=== PATIENT | female | born 1935 | race Caucasian/White ===

== ENCOUNTER 2018-07-09 11:59 | Inpatient (IN) | payer OTHER ==
--- NOTE | 2018-07-09 13:36 | R.PREADM ---
SCREENING DATE AND TIME 07/09/2018 12:05 (FLIGHT SERVICE AGENT) ANTICIPATED REHAB ADMISSION DATE 07/11/2018 REFERRING FACILITY [facility] REFERRAL DATE AND TIME 07/09/2018 12:07 (FLIGHT SERVICE AGENT) ACUTE ADMIT DATE 06/29/2018 Previous Rehabilitation(s): No. REFERRING PHYSICIAN Reynaldo Handley REHAB FACILITY [facility] CLINICAL LIAISON Rebeca Nolasco PHYSICIAN REVIEWER Dr. Rambo De La Rosa M.D. MR# [id number] [id number] NAME LINH SANDS ADDRESS [address] [place] [address] [place] [address] DATE OF 1935 AGE 83 SSN# [id number] GENDER female MARITAL STATUS RACE white ADMIT FROM 02 - [facility] PRE-HOSPITAL LIVING SETTING 01 - Home (private home/apt. board/care, assisted living, residential, transitional living) HOME TYPE AND DETAILS Type of home: single family house # of levels in the residence: 1 # of steps within the residence: 0 # of steps to enter the residence: 5 PRE-HOSPITAL LIVING WITH Alone FAMILY SUPPORT Yes PRIMARY FAMILY CONTACT NAME Fiona Ramirez PRIMARY FAMILY CONTACT PHONE PRIMARY FAMILY CONTACT RELATIONSHIP Daughter PHONE PRIMARY FAMILY CONTACT ON ADM.? no IS PRIMARY FAMILY CONTACT AUTH. REP.? no 1ST EMERGENCY CONTACT Fiona Ramirez 1ST CONTACT PHONE 1ST CONTACT RELATIONSHIP Daughter PHONE 1ST CONTACT ON ADM. no IS 1ST CONTACT AUTH. REP.? no PHONE 2ND CONTACT ON ADM.? no PATIENT EMPLOYMENT STATUS Retired (for age) PATIENT EMPLOYER No Employer PAYOR INFORMATION: 1ST PAYOR NAME MEDICARE 1ST PAYOR PHONE [phone] 1ST PAYOR INJURY/ILLNESS DUE TO ACCIDENT? No ANOTHER [employer] RESPONSIBLE? No PRIMARY REHAB/ACUTE DIAGNOSIS: Left Hip Fracture ONSET DATE 06/29/2018 REHAB IMPAIRMENT CATEGORY (RAFAEL): 07 Fracture of LE (FracLE) MEETS 60% rule AFFECTED EXTREMITIES: LLE PRIMARY DIAGNOSIS-RELATED SURGERIES: IM Nailing,Left femur - performed by Ezequiel Harrington on 06/30/2018 COMORBID REHAB/ACUTE DIAGNOSES: - N/A Chronic Atrial Fibrillation Hypertension Hypothyroidism Restless Leg Syndrome ACUTE KIDNEY INJURY Anemia INTERVENTIONS: - Hypertension Fluid management Medications VS RISK FOR COMPLICATIONS: - Hypertension CVA Hypotension [place] TIA SUMMARY OF ACUTE HOSPITALIZATION: Pt. is a 83 yo Right-handed white female. On 06/29/2018 she was admitted to [facility] with diagnosis Left Hip Fracture. Her impairment category is Orthopaedic Disorders 08 - Unilateral Hip Fracture (08.11). Pre-morbidly, Pt. was independent/mod-I in Self-Care, Sphincter Control, Transfers Control, Communica tion, Social Cognition, and Locomotion; and she had good Sphincter Control. Currently, she has deficits of Self-Care, Transfers Control, Endurance, Balance, Safety Awareness, an d Locomotion. Pt. is now referred to [facility] for acute in-patient rehabilitation in order to maximize patient's functional independence in activities of daily living, strength, ROM, and mobi lity. Patient has realistic goal of being discharged at assistance level 6-Radha to reside at Home with Fam wilmer/Relatives. PAST MEDICAL HISTORY ACUTE KIDNEY INJURY Anemia Chronic Atrial Fibrillation Hypertension Hypothyroidism Restless Leg Syndrome PAST SURGICAL HISTORY: PACEMAKER PLACEMENT MEDICATION ALLERGIES: Codeine ENVIRONMENTAL ALLERGIES: None Known - Substance Allergies None Known - Other Allergies None Known CODE STATUS: DNR/DNI WEIGHT/HEIGHT/BMI: WEIGHT 225 lbs HEIGHT 5' 9" BMI 33.2 DIET: - Diet Type Regular - Diet - Solid Texture Regular - Diet - Liquid Texture Regular - Tube Feed N/A SKIN DIAGRAM: Incision on Left upper leg; extent - small; stage - NS(Not Stageable). Treatment - Per Physician's Or ders. REVIEW OF SYSTEMS: - Gen Alert and awake Lying in bed No apparent distress Oriented to: person, time, and place - Vital Signs Temperature: 98 F SBP/DBP: 124/55 Pulse: 69 Resp: 18 Vital signs stable, afebrile - CVS RRR VITAL SIGNS Temperature: 98 F SBP/DBP: 124/55 Pulse: 69 Resp: 18 Vital signs stable, afebrile CURRENT SPHINCTER CONTROL: Pre-hospital bladder status: continent # of bladder accidents in the last 7 days prior to screenin Pre-hospital bowel status: continent # of bowel accidents in the last 7 days prior to screenin Last Bowel Movement Date: DETAILED CURRENT FUNCTIONAL STATUS: - Bladder accident frequency: Ind - No accidents in the past 7 days - Bowel accident frequency: Ind - No accidents in the past 7 days - Walking score based on distance walked: 3(>=150ft) FUNCTIONAL STATUS: - Self-Care A. Eating Ind sup B. Grooming Ind sup C. Bathing Ind modA D. Dressing - Upper Ind Maria Isabel E. Dressing - Lower Ind maxA F. Toileting Ind modA - Sphincter Control G: Bladder control Ind Ind H: Bowel control Ind Ind - Transfers Control I. Bed/Chair/Wheelchair Ind Maria Isabel J. Toilet Ind Maria Isabel K. Tub/Shower Ind modA - Locomotion L. Walk/Wheelchair (B) Ind Maria Isabel M. Stairs Ind ADNO - Communication N. Comprehension (B) Ind Radha O. Expression (B) Ind Radha - Social Cognition P. Social Interaction Ind Radha Q. Problem Solving Ind Radha R. Memory Ind Radha - Endurance Fair - Balance Fair - Safety Awareness Fair CURRENT FUNC. DEFICITS: Self-Care, Transfers Control, Endurance, Balance, Safety Awareness, and Locomotion THERAPY NOTES FROM ACUTE CARE: Attached. SPECIAL NEEDS: - Safety Concerns Skin breakdown precautions needed due to skin breakdown risk PRECAUTIONS: - Posterior Hip Precaution No adduction across midline No external rotation No hip flexion >90 degrees No internal rotation No wheel chair propulsion - Weight Bearing Precaution WBAT left LE PATIENT NEEDS ACTIVE AND ONGOING THERAPEUTIC INTERVENTION OF MULTIPLE THERAPY DISCIPLINES, INCLUDING: - Occupational Therapy Evaluate and Treat. - Physical Therapy Evaluate and Treat. PATIENT NEEDS CLOSE MEDICAL SUPERVISION BY A REHABILITATION PHYSICIAN FOR: Coordination of Treatment Team Medical and Co-Morbidity Management Wound Care Pain Management DVT Management Bowel and Bladder Management Sleep Problems PATIENT REQUIRES 24X7 REHAB NURSING FOR MEDICAL AND FUNCTIONAL MGT. OF THE FOLLOWING DEFICITS: Disease Management Medication Management Patient/Family Education Providing Safe Environment Skin Integrity Pain Management Transfers PATIENT REQUIRES INTENSIVE, COORDINATED INTERDISCIPLINARY APPROACH TO REHAB: Arranging Home Equipment/Services Discharge Planning Family Intervention/Training Office Workforce Planner/Case Management PATIENT REHAB POTENTIAL: Expected level of measurable improvement will be of a practical value to patient's functional capacit y or adaptations to impairments Has a viable Discharge Plan Medically appropriate; condition is sufficiently stable to participate in intensive rehab program Patient is able and expected to receive 3 hours of individualized therapy daily on at least 5 of ever y 7 days Patient's prognosis for significant practical improvement within a reasonable period of time appears Good DISCHARGE PLAN: - Estimated Length of Stay (days) 14. - Consensus on plan Discharge plan has been discussed with primary caregiver. Patient/Family is in agreement with the irasema n. Primary caregiver is in agreement with the plan. - Patient/Family Goals Return home with assistance. - Planned Living Setting Upon Discharge Home, to live alone. RECOMMENDED CARE LEVEL: IRF RECOMMENDATION DETAILS: Recommended Admission to Comprehensive Rehabilitation Program to Increase Functional [place] SCREENER'S COMPLETENESS CONFIRMATION: - Screening Confirmation The patient data collection on this preadmission screening form is finished PHYSICIANS REVIEW AND ADMISSION DETERMINATION Admit - Based on my review of the Pre-Admission Screening results, in my medical judgment and experie nce, I concur with the findings and recommend admission to [facility], as this patient requires an IRF level of care. SIGNATURE PANEL: Clinical Liaison - [electronically] signed by Yandy Pina on 07/09/2018 at 13:30 (FLIGHT SERVICE AGENT) Clinical Liaison - [electronically] signed by Rebeca Nolasco on 07/09/2018 at 13:33 (FLIGHT SERVICE AGENT) Physician Reviewer - [electronically] signed by Dr. Rambo De La Rosa M.D. on 07/09/2018 at 13:35 (FLIGHT SERVICE AGENT )
--- OUTSIDE RECORDS SUMMARY | 2018-07-09 17:55 | XMS REPORT | Clinical Summary ---
:1935 Author Organization [facility] Address [address] [place] [address] Care Team Providers Name Role Phone Michael Albright MD Primary Care Provider Allergies Active Allergy Reactions Severity Noted Date Comments Codeine Rash Medium 06/29/2018 Medications Medication Sig Dispensed Refills Start Date End Date Status lisinopril-hydrochl Take 1 tablet 0 Active orothiazide by mouth (PRINZIDE,ZESTORETI daily. C) 20-25 mg per tablet pramipexole Take 0.5 mg by 0 Active (MIRAPEX) 0.5 MG mouth nightly. tablet rivaroxaban Take 15 mg by 0 Active (XARELTO) 15 mg mouth every tablet morning. venlafaxine XR Take 150 mg by 0 Active (EFFEXOR-XR) 150 MG mouth every 24 hr capsule morning. levothyroxine Take 150 mcg 0 Active (SYNTHROID, by mouth every LEVOXYL) 150 mcg morning. tablet furosemide (LASIX) Take 40 mg by 0 Active 40 mg tablet mouth daily as needed. acetaminophen Take 2 tablets 0 07/09/2018 08/08/2018 Active (TYLENOL) 325 MG (650 mg total) tablet by mouth every 4 (four) hours as needed for mild pain for up to 30 days. amLODIPine Take 1 tablet 30 tablet 0 07/09/2018 08/08/2018 Active (NORVASC) 5 mg (5 mg total) tablet by mouth daily for 30 days. sennosides-docusate Take 1 tablet 30 tablet 0 07/09/2018 08/08/2018 Active sodium (SENOKOT-S) by mouth 8.6-50 mg per nightly for 30 tabletIndications: days. Closed fracture of left hip, initial encounter ([facility]) traMADol (ULTRAM) Take 1 tablet 0 07/09/2018 07/23/2018 Active 50 mg (50 mg total) tabletIndications: by mouth every Closed fracture of 6 (six) hours left hip, initial as needed for encounter (HCC) moderate pain for up to 14 days. pantoprazole Take 1 tablet 30 tablet 0 07/10/2018 08/09/2018 Active (PROTONIX) 40 MG EC (40 mg total) tablet by mouth daily for 30 days. gabapentin Take 1,200 mg 0 07/09/2018 Discontinued (NEURONTIN) 600 mg by mouth 2 tablet (two) times a day. ALPRAZolam (XANAX) Take 1 mg by 0 07/09/2018 Discontinued 1 MG tablet mouth nightly. potassium 99 mg Take 1 tablet 0 07/09/2018 Discontinued tablet by mouth daily as needed (with Lasix). OVER THE COUNTER Active Problems Problem Noted Date Closed fracture of left hip 06/29/2018 Encounters Date Type Specialty Care Team Description 06/30/2018 Anesthesia Event Orthopedic Surgery Jelani Larsen MD 06/30/2018 Surgery Orthopedic Surgery Jason Harrington INTRAMEDULLARY MD Isiah RODDING, FEMUR 06/29/2018 - Hospital Encounter Neurosurgery IrinaPetit, Closed fracture of left hip, initial encounter ([facility]) (Primary Dx); 07/09/2018 MD Jun Gilmore, initial encounter Ciera Castaneda-Bharti Hay MD 06/29/2018 Intake Access N/A after 07/08/2017 Social History Tobacco Use Types Packs/Day Years Used Date Never Smoker Smokeless Tobacco: Never Used Alcohol Use Drinks/Week oz/Week Comments No Alcohol Habits Answer Date Recorded How often do you have a drink containing alcohol? Never 06/30/2018 How many drinks containing alcohol do you have on a typical Not asked day when you are drinking? How often do you have six or more drinks on one occasion? Not asked Sex Assigned at Date Recorded Not on file Job Start Date Occupation Industry Not on file Not on file Not on file Travel History Travel Start Travel End No recent travel history available. Last Filed Vital Signs Vital Sign Reading Time Taken Blood Pressure 184/86 07/09/2018 3:53 PM [employer] Pulse 70 07/09/2018 3:53 PM [employer] Temperature 36.4 C (97.6 F) 07/09/2018 11:46 AM [employer] Respiratory Rate 17 07/09/2018 3:50 PM [employer] Oxygen Saturation 95% 07/09/2018 3:45 PM [employer] Inhaled Oxygen Concentration - - Weight 115 kg (252 lb 10.4 oz) 07/02/2018 10:00 PM [employer] Height 175.3 cm (5' 9") 06/29/2018 11:15 PM [employer] Body Mass Index 37.31 07/02/2018 10:00 PM [employer] Plan of Treatment Health Maintenance Due Date Last Done Comments SHINGLES VACCINES (#1) 1985 65+ PNEUMOCOCCAL VACCINE (1 of 2 - PCV13) 02/25/2000 PNEUMOCOCCAL POLYSACCHARIDE VACCINE AGE 65 AND OVER 02/25/2000 INFLUENZA VACCINE 12/06/2017 Implants Implanted Type Area Mold Stamper Device Shelf Model / Identifier Expiration Serial / Date Lot Kit Scr Intrlkng 90mm Lag 85mm Comp Intertan - [id number] Hip Joint Left: EDIL CABRALES [id number] / Implanted: Qty: 1 on 06/30/2018 by Jason Harrington MD Implants Hip NEPHEW / ORTHOPEDICS Trigen Low Profile Screw 5.0mm X 40mm - [id number] IPM IMPLANT Left: [employer] [id number] / Implanted: Qty: 1 on 06/30/2018 by Jason Harrington MD DEVICES Hip ORTHOPAEDICS / Intertan 1.5 [id number] 125d Lt - [id number] IPM IMPLANT Left: [employer] 08/19/2024 [id number] / Implanted: Qty: 1 on 06/30/2018 by Jason Harrington MD DEVICES Hip ORTHOPAEDICS / [id number] Procedures Procedure Name Priority Date/Time Associated Comments Diagnosis ARTERIAL BLOOD GAS Timed 07/09/2018 6:46 Results for this AM [employer] procedure are in the results section. ARTERIAL BLOOD GAS Routine 07/08/2018 9:09 Results for this PM [employer] procedure are in the results section. ESTIMATED GFR Routine 07/08/2018 3:30 Results for this AM [employer] procedure are in the results section. CBC HEMOGRAM Routine 07/08/2018 3:30 Results for this AM [employer]OR procedure are in the results section. PHOSPHORUS LEVEL Routine 07/08/2018 3:30 Results for this AM [employer]PECTOR procedure are in the results section. MAGNESIUM LEVEL Routine 07/08/2018 3:30 Results for this AM [employer] procedure are in the results section. BASIC METABOLIC PANEL Routine 07/08/2018 3:30 Results for this AM [employer]OR procedure are in the results section. ARTERIAL BLOOD GAS STAT 07/07/2018 5:32 Results for this AM [employer]OR procedure are in the results section. B NATRIURETIC PEPTIDE Routine 07/07/2018 5:30 Results for this AM [employer]OR procedure are in the results section. HC COMPLETE BLD COUNT Routine 07/07/2018 5:30 Results for this W/AUTO DIFF AM [employer] procedure are in the results section. ESTIMATED GFR Routine 07/07/2018 4:00 Results for this AM [employer]OR procedure are in the results section. MAGNESIUM LEVEL Routine 07/07/2018 4:00 Results for this AM [employer]OR procedure are in the results section. BASIC METABOLIC PANEL Routine 07/07/2018 4:00 Results for this AM [employer]PECTOR procedure are in the results section. ARTERIAL BLOOD GAS STAT 07/06/2018 10:56 Results for this PM [employer] procedure are in the results section. ARTERIAL BLOOD GAS Timed 07/06/2018 10:02 Results for this PM [employer] procedure are in the results section. ESTIMATED GFR Routine 07/06/2018 4:30 Results for this AM [employer]OR procedure are in the results section. B NATRIURETIC PEPTIDE Routine 07/06/2018 4:30 Results for this AM [employer]OR procedure are in the results section. HC COMPLETE BLD COUNT Routine 07/06/2018 4:30 Results for this W/AUTO DIFF AM [employer] procedure are in the results section. PHOSPHORUS LEVEL Routine 07/06/2018 4:30 Results for this AM [employer]OR procedure are in the results section. MAGNESIUM LEVEL Routine 07/06/2018 4:30 Results for this AM [employer] procedure are in the results section. BASIC METABOLIC PANEL Routine 07/06/2018 4:30 Results for this AM [employer]OR procedure are in the results section. B NATRIURETIC PEPTIDE Routine 07/05/2018 6:21 Results for this AM [employer]OR procedure are in the results section. HC COMPLETE BLD COUNT Routine 07/05/2018 6:21 Results for this W/AUTO DIFF AM [employer] procedure are in the results section. ESTIMATED GFR Routine 07/05/2018 4:00 Results for this AM [employer]PECTOR procedure are in the results section. BASIC METABOLIC PANEL Routine 07/05/2018 4:00 Results for this AM [employer]OR procedure are in the results section. VENOUS BLOOD GAS Routine 07/04/2018 3:00 Results for this PM [employer] procedure are in the results section. XR CHEST 1 VW PORTABLE Routine 07/04/2018 9:57 Results for this AM [employer]OR procedure are in the results section. ESTIMATED GFR Routine 07/04/2018 5:22 Results for this AM [employer]OR procedure are in the results section. MAGNESIUM LEVEL Routine 07/04/2018 5:22 Results for this AM [employer]OR procedure are in the results section. BASIC METABOLIC PANEL Routine 07/04/2018 5:22 Results for this AM [employer] procedure are in the results section. XR CHEST 1 VW PORTABLE STAT 07/03/2018 7:02 Results for this AM [employer] procedure are in the results section. ARTERIAL BLOOD GAS STAT 07/03/2018 6:15 Results for this AM [employer] procedure are in the results section. MANUAL DIFFERENTIAL Routine 07/03/2018 4:53 Results for this AM [employer] procedure are in the results section. ESTIMATED GFR Routine 07/03/2018 4:53 Results for this AM [employer]OR procedure are in the results section. PHOSPHORUS LEVEL Routine 07/03/2018 4:53 Results for this AM [employer]OR procedure are in the results section. MAGNESIUM LEVEL Routine 07/03/2018 4:53 Results for this AM [employer] procedure are in the results section. BASIC METABOLIC PANEL Routine 07/03/2018 4:53 Results for this AM [employer] procedure are in the results section. CBC WITH PLATELET AND Routine 07/03/2018 4:53 Results for this DIFFERENTIAL AM [employer]OR procedure are in the results section. ARTERIAL BLOOD GAS Routine 07/02/2018 5:25 Results for this PM [employer] procedure are in the results section. POC GLUCOSE Routine 07/02/2018 5:13 Results for this PM [employer] procedure are in the results section. US RENAL STAT 07/02/2018 2:00 Closed fracture of Results for this PM [employer] left hip, initial procedure are in encounter (HCC) the results section. ESTIMATED GFR Routine 07/02/2018 12:45 Results for this PM [employer] procedure are in the results section. URIC ACID LEVEL Routine 07/02/2018 12:45 Results for this PM [employer] procedure are in the results section. CREATINE KINASE, TOTAL Routine 07/02/2018 12:45 Results for this (CPK) PM [employer] procedure are in the results section. BASIC METABOLIC PANEL Routine 07/02/2018 12:45 Results for this PM [employer] procedure are in the results section. URINALYSIS, AUTOMATED Routine 07/02/2018 12:45 Results for this WITH MICROSCOPY PM [employer]OR procedure are in the results section. PROTEIN, URINE, RANDOM Routine 07/02/2018 12:45 Results for this PM [employer] procedure are in the results section. CREATININE LEVEL, Routine 07/02/2018 12:45 Results for this URINE, RANDOM PM [employer] procedure are in the results section. SODIUM LEVEL, URINE, Routine 07/02/2018 12:45 Results for this RANDOM PM [employer] procedure are in the results section. URINE EOSINOPHILS Routine 07/02/2018 12:45 Results for this PM [employer] procedure are in the results section. B NATRIURETIC PEPTIDE Routine 07/02/2018 5:00 Results for this AM [employer] procedure are in the results section. CBC WITH PLATELET AND Routine 07/02/2018 5:00 Results for this DIFFERENTIAL AM [employer] procedure are in the results section. ESTIMATED GFR Routine 07/02/2018 4:00 Results for this AM [employer]OR procedure are in the results section. MAGNESIUM LEVEL Routine 07/02/2018 4:00 Results for this AM [employer] procedure are in the results section. BASIC METABOLIC PANEL Routine 07/02/2018 4:00 Results for this AM [employer]OR procedure are in the results section. LACTIC ACID LEVEL, Timed 07/01/2018 1:30 Results for this SEPSIS - NOW AND PM [employer]OR procedure are in REPEAT 2X EVERY 3 the results HOURS section. LACTIC ACID LEVEL, Timed 07/01/2018 10:30 Results for this SEPSIS - NOW AND AM [employer]OR procedure are in REPEAT 2X EVERY 3 the results HOURS section. ECG 12-LEAD STAT 07/01/2018 8:01 Results for this AM [employer] procedure are in the results section. LACTIC ACID LEVEL, Timed 07/01/2018 7:34 Results for this SEPSIS - NOW AND AM [employer]PECTOR procedure are in REPEAT 2X EVERY 3 the results HOURS section. XR CHEST 1 VW PORTABLE STAT 07/01/2018 7:21 Results for this AM [employer]OR procedure are in the results section. ARTERIAL BLOOD GAS STAT 07/01/2018 5:30 Results for this AM [employer] procedure are in the results section. B NATRIURETIC PEPTIDE STAT 07/01/2018 5:00 Results for this AM [employer] procedure are in the results section. HC COMPLETE BLD COUNT STAT 07/01/2018 5:00 Results for this W/AUTO DIFF AM [employer] procedure are in the results section. POC GLUCOSE Routine 07/01/2018 4:41 Results for this AM [employer] procedure are in the results section. ESTIMATED GFR STAT 07/01/2018 4:41 Results for this AM [employer]OR procedure are in the results section. CREATINE KINASE, TOTAL STAT 07/01/2018 4:41 Results for this (CPK) AM [employer] procedure are in the results section. IONIZED CALCIUM STAT 07/01/2018 4:41 Results for this AM [employer]OR procedure are in the results section. LACTIC ACID LEVEL STAT 07/01/2018 4:41 Results for this AM [employer]PECTOR procedure are in the results section. TROPONIN STAT 07/01/2018 4:41 Results for this AM [employer]PECTOR procedure are in the results section. MAGNESIUM LEVEL STAT 07/01/2018 4:41 Results for this AM [employer]OR procedure are in the results section. PHOSPHORUS LEVEL STAT 07/01/2018 4:41 Results for this AM [employer]PECTOR procedure are in the results section. COMPREHENSIVE STAT 07/01/2018 4:41 Results for this METABOLIC PANEL AM [employer]PECTOR procedure are in the results section. XR PELVIS 1 OR 2 VW Routine 06/30/2018 12:36 Results for this PM [employer] procedure are in the results section. XR FEMUR 2 VW LEFT Routine 06/30/2018 12:36 Results for this PM [employer]OR procedure are in the results section. OR FL > 1 HOUR Routine 06/30/2018 11:14 Results for this AM [employer]OR procedure are in the results section. MA AN ELECTIVE Routine 06/30/2018 9:41 ENDOTRACHEAL AIRWAY AM [employer] Procedure Note - Jelani Larsen MD - 06/30/2018 9:41 AM [employer]PECTOR Airway Date/Time: 06/30/2018 8:58 AM Performed by: Linh Petit CRNA Authorized by: Jelani Larsen MD Location: OR Urgency: Elective Difficult Airway: No Anesthesiologist: Jelani Larsen MD Resident/PUBLIC HEALTH/AA: Linh Petit CRNA Performed by: resident/PUBLIC HEALTH/AA Preoxygenated with 100% O2: Yes C-spine Precautions Maintained Throughout: Yes Mask Ventilation: Easy mask Final Airway Type: Endotracheal airway Final Endotracheal Airway: ETT Cuffed: No Technique Used: Video laryngoscopy Devices/Methods Used in Placement: Intubating stylet Insertion Site: Oral Laryngoscope Blade/Videolaryngoscope Blade Size: 3 ETT Size (mm): 7.0 Measured from: Lips ETT to Lips (cm): 22 Placement Verified by: CO2 detection and direct visualization Laryngoscopic view: Grade I - full view of glottis Rapid Sequence Induction (RSI): No Modified RSI: No Number of Attempts at Approach: 1 INTRAMEDULLARY RODDING, 06/30/2018 8:00 AM [employer]OWER [employer]ER INSPECTOR Closed left subtrochanteric FEMUR femur fracture (HCC) Special Needs large c arm; meredith and nephew IMN; fracture table; request first available time ECG PRE/POST OP STAT 06/30/2018 7:47 AM POWER [employer]FORMER INSPECTOR HC COMPLETE BLD COUNT W/AUTO STAT 06/30/2018 5:45 AM [employer]OWER [employer]ER INSPECTOR Results for this DIFF procedure are in the results section. PARTIAL THROMBOPLASTIN TIME STAT 06/30/2018 5:45 AM POWER [employer]ER INSPECTOR Results for this (PTT) procedure are in the results section. PROTHROMBIN TIME WITH INR STAT 06/30/2018 5:45 AM POWER [employer]ER INSPECTOR PTH-RELATED PEPTIDE Routine 06/30/2018 12:45 AM POWER TR[employer]FORMER INSPECTOR VITAMIN D 25 HYDROXY LEVEL STAT 06/29/2018 10:06 PM POWER [employer] CT PELVIS WO CONTRAST STAT 06/29/2018 9:26 PM POWER [employer]ER INSPECTOR XR FEMUR 2 VW LEFT STAT 06/29/2018 8:24 PM POWER [employer]ER INSPECTOR ESTIMATED GFR STAT 06/29/2018 8:19 PM [employer]OWER [employer]ER INSPECTOR TYPE AND SCREEN Routine 06/29/2018 8:19 PM [employer] INSPECTOR COMPREHENSIVE METABOLIC STAT 06/29/2018 8:19 PM [employer]PECTOR Results for this PANEL procedure are in the results section. PARTIAL THROMBOPLASTIN TIME STAT 06/29/2018 8:19 PM POWER [employer]PECTOR Results for this (PTT) procedure are in the results section. PROTHROMBIN TIME WITH INR STAT 06/29/2018 8:19 PM POWER [employer]ER INSPECTOR HC COMPLETE BLD COUNT W/AUTO STAT 06/29/2018 8:19 PM [employer]PECTOR Results for this DIFF procedure are in the results section. XR CHEST 1 VW PORTABLE STAT 06/29/2018 8:19 PM POWER [employer]ER INSPECTOR XR HIPS BILATERAL AP LATERAL STAT 06/29/2018 8:18 PM [employer]PECTOR Results for this W AP PELVIS procedure are in the results section. XR PELVIS 1 OR 2 VW STAT 06/29/2018 8:18 PM POWER [employer]ER INSPECTOR after 07/08/2017 Results Arterial blood gas (07/09/2018 6:46 AM POWER TRANSFORMER INSPECTOR)Only the most recent of8 resultswithin the time period is included. pH, arterial 7.48 (H) 7.35 - 7.45 [facility] pCO2, arterial 39 35 - 45 mmHg [facility] pO2, arterial 108 (H) 80 - 90 mmHg [facility] Bicarbonate, arterial 28.4 (H) 21.0 - 28.0 mmol/L [facility] Base excess, arterial 5 (H) -2 - 2 mEq/L [facility] O2 saturation, arterial 99 95 - 100 % [facility] Specimen Blood Performing Organization Address City/[facility] Phone Number [facility] DEPARTMENT OF PATHOLOGY AND [address] [place] [address] Estimated GFR (07/08/2018 3:30 AM POWER TRANSFORMER INSPECTOR)Only the most recent of10 resultswithin the time period is included. Estimated GFR 66 mL/min/1.73 m2 [facility] Comment: HOSPITAL CatergoryUnitsInterpretation G1 >=90 Normal or high G2 60-89Mildly decreased [id number] to moderately decreased [id number] to severely decreased G4 15-29Severely decreased G5 <15Kidney failure The eGFR was calculated using the Chronic Kidney Disease Epidemiology Collaboration (CKD-EPI) equation. Interpretation is based on recommendations of the National Kidney Foundation-Kidney Disease Outcomes Quality Initiative (NKF-KDOQI) published in 2014. Specimen Plasma specimen Performing Organization Address City/[facility]ode Phone Number [facility] DEPARTMENT OF PATHOLOGY AND [address] [place] [address] CBC hemogram (07/08/2018 3:30 AM POWER TRANSFORMER INSPECTOR) WBC 9.86 4.50 - 11.00 k/uL [facility] RBC 3.15 (L) 4.20 - 5.50 m/uL [facility] HGB 10.2 (L) 12.0 - 16.0 g/dL [facility] HCT 32.6 (L) 37.0 - 47.0 % [facility] MCV 103.5 (H) 82.0 - 100.0 fL [facility] MCH 32.4 27.0 - 34.0 pg [facility] MCHC 31.3 31.0 - 37.0 g/dL [facility] RDW - SD 49.2 37.0 - 55.0 fL [facility] MPV 10.1 8.8 - 13.2 fL [facility] Platelet count 377 150 - 400 k/uL [facility] Nucleated RBC 0.00 /100 WBC [facility] Specimen Blood Performing Organization Address City/[facility] [place] Phone Number [facility] DEPARTMENT OF PATHOLOGY AND [address] [place] [phone] Phosphorus level (07/08/2018 3:30 AM POWER TRANSFORMER INSPECTOR)Only the most recent of4 resultswithin the time period is included. Phosphorus 3.2 2.4 - 4.5 mg/dL [facility] Specimen Plasma specimen Performing Organization Address [facility] Phone Number [facility] DEPARTMENT OF PATHOLOGY AND [address] [place] [phone] Magnesium level (07/08/2018 3:30 AM POWER TRANSFORMER INSPECTOR)Only the most recent of7 resultswithin the time period is included. Magnesium 1.7 1.6 - 2.4 mg/dL [facility] Specimen Plasma specimen Performing Organization Address City/[facility] Phone Number [facility] DEPARTMENT OF PATHOLOGY AND [address] [place] [phone] Basic metabolic panel (07/08/2018 3:30 AM POWER TRANSFORMER INSPECTOR)Only the most recent of8 resultswithin the time period is included. Sodium 138 135 - 148 mEq/L [facility] Potassium 4.7 3.5 - 5.0 mEq/L [facility] Chloride 98 98 - 112 mEq/L [facility] CO2 27 24 - 31 mEq/L [facility] Anion gap 13@ANIO 7 - 15 mEq/L [facility] BUN 16 8 - 23 mg/dL [facility] Creatinine 0.82 0.50 - 0.90 mg/dL [facility] Glucose 120 (H) 65 - 99 mg/dL [facility] Calcium 10.0 8.8 - 10.2 mg/dL [facility] Specimen Plasma specimen Performing Organization Address City/[facility]/Zipcode Phone Number [facility] DEPARTMENT OF PATHOLOGY AND [address] [address] CBC with platelet and differential (07/07/2018 5:30 AM POWER TRANSFORMER INSPECTOR)Only the most recent of8 resultswithin the time period is included. WBC 9.36 4.50 - 11.00 k/uL [facility] RBC 2.95 (L) 4.20 - 5.50 m/uL [facility] HGB 9.6 (L) 12.0 - 16.0 g/dL [facility] HCT 30.4 (L) 37.0 - 47.0 % [facility] MCV 103.1 (H) 82.0 - 100.0 fL [facility] MCH 32.5 27.0 - 34.0 pg [facility] MCHC 31.6 31.0 - 37.0 g/dL [facility] RDW - SD 49.0 37.0 - 55.0 fL [facility] MPV 10.2 8.8 - 13.2 fL [facility] Platelet count 326 150 - 400 k/uL [facility] Nucleated RBC 0.00 /100 WBC [facility] Neutrophils 73.4 (H) 39.0 - 69.0 % [facility] Lymphocytes 15.8 (L) 25.0 - 45.0 % [facility] Monocytes 8.0 0.0 - 10.0 % [facility] Eosinophils 1.5 0.0 - 5.0 % [facility] Basophils 0.6 0.0 - 1.0 % [facility] Immature granulocytes 0.7Comment: "Immature 0.0 - 1.0 % [facility] granulocytes" [facility] (promyelocytes, myelocytes, metamyelocytes) Specimen Blood Performing Organization Address City/[facility] Centercode Phone Number [facility] DEPARTMENT OF PATHOLOGY AND [address] [place] [address] [address] B natriuretic peptide (07/07/2018 5:30 AM POWER TRANSFORMER INSPECTOR)Only the most recent of5 resultswithin the time period is included. BNP 167 (H) 0 - 100 pg/mL [facility] Specimen Blood Performing Organization Address City/[facility] Centercode Phone Number [facility] DEPARTMENT OF PATHOLOGY AND [address] [place] [address] [address] Venous blood gas (07/04/2018 3:00 PM POWER TRANSFORMER INSPECTOR) pH, venous 7.34 7.32 - 7.42 [facility] pCO2, venous 54 (H) 45 - 51 mmHg [facility] pO2, venous 34 25 - 40 mmHg [facility] Base excess, venous 2 -2 - 2 meq/L [facility] O2 saturation, venous 60 40 - 70 % [facility] Bicarbonate, venous 28.2 (H) 21.0 - 28.0 mmol/L [facility] Specimen Blood Performing Organization Address [facility] Phone Number [facility] DEPARTMENT OF PATHOLOGY AND [address] [place] [address] [address] XR Chest 1 Vw Portable (07/04/2018 9:57 AM POWER TRANSFORMER INSPECTOR)Only the most recent of4 resultswithin the time period is included. Narrative Performed At EXAMINATION:XR CHEST 1 VW PORTABLE [facility] CLINICAL HISTORY:cough COMPARISON:July 03, 2018 IMPRESSION: Transvenous pacemakers in the left axillary fold.There is cardiomegaly.Mediastinum is normal. Pulmonary vasculature is slightly prominent with mild infiltrate and atelectasis noted at both lung bases somewhat more on the right.This is generally similar to the preceding day's exam. [facility]-[id number] Procedure Note Interface, Radiology Results Incoming - 07/04/2018 11:00 AM POWER TRANSFORMER INSPECTOR EXAMINATION: XR CHEST 1 VW PORTABLE CLINICAL HISTORY: cough COMPARISON: July 03, 2018 IMPRESSION: Transvenous pacemakers in the left axillary fold. There is cardiomegaly. Mediastinum is normal. Pulmonary vasculature is slightly prominent with mild infiltrate and atelectasis noted at both lung bases somewhat more on the right. This is generally similar to the preceding day's exam. [facility]-[id number] Performing Organization Address City/[facility] Phone Number [facility] [address] [place] [phone] Manual differential (07/03/2018 4:53 AM POWER TRANSFORMER INSPECTOR) Manual differential PERFORMED [facility] Neutrophils 74.0 (H) 39.0 - 69.0 % [facility] Lymphocytes 14.0 (L) 25.0 - 45.0 % [facility] Monocytes 9.0 0.0 - 10.0 % [facility] Eosinophils 2.0 0.0 - 5.0 % [facility] Basophils 1.0 0.0 - 1.0 % [facility] Metamyelocytes 0 % [facility] Promyelocytes 0 % [facility] Platelet slide review Vivien adequate [facility] Toxic granulation Slight [facility] Anisocytosis Moderate [facility] Polychromasia Moderate [facility] Ovalocytes Moderate [facility] Enlarged platelets Moderate (A) [facility] Giant platelets Occasional [facility] Performing Organization Address City/[facility] Phone Number [facility] DEPARTMENT OF PATHOLOGY AND [address] [place] [phone] POC glucose (07/02/2018 5:13 PM POWER TRANSFORMER INSPECTOR)Only the most recent of2 resultswithin the time period is included. POC glucose 182 (H) 65 - 99 mg/dL [facility] Comment: Meter ID: [id number] Concert Singer: Jas Chaidez Performing Organization Address City/[facility] Phone Number [facility] DEPARTMENT OF PATHOLOGY AND [address] [place] [phone] [place] [address] US Renal (07/02/2018 2:00 PM POWER TRANSFORMER INSPECTOR) Narrative Performed At EXAMINATION:US RENAL [facility] CLINICAL HISTORY:S72.002A Fracture of unspecified part of neck of left femurinitial encounter for closed fracture, Renal failureacute (kidney injury) COMPARISON:No prior IMPRESSION: 1. The right kidney measures 13.2cm in length. 2. The left kidney measures 11.9cm in length. 3. Cysts: No cysts are identified. 4. Hydronephrosis.: There is no hydronephrosis. 5. Masses: No suspicious masses. 6. Renal echogenicity:Within normal limits. 7. Bladder: The bladder is not well seen. 8. Calculi: No calculi 9. Other Findings:None [facility]-[id number] Procedure Note Hm Interface, Radiology Results Incoming - 07/02/2018 3:40 PM POWER TRANSFORMER INSPECTOR EXAMINATION: US RENAL CLINICAL HISTORY: S72.002A Fracture of unspecified part of neck of left femur initial encounter for closed fracture, Renal failure acute (kidney injury) COMPARISON: No prior IMPRESSION: 1. The right kidney measures 13.2 cm in length. 2. The left kidney measures 11.9 cm in length. 3. Cysts: No cysts are identified. 4. Hydronephrosis.: There is no hydronephrosis. 5. Masses: No suspicious masses. 6. Renal echogenicity: Within normal limits. 7. Bladder: The bladder is not well seen. 8. Calculi: No calculi 9. Other Findings:None [facility]-[id number] Performing Organization Address City/[facility]/Zipcode Phone Number [facility] [address] [place] [phone] Urine eosinophils (07/02/2018 12:45 PM POWER TRANSFORMER INSPECTOR) Eosinophils, urine NONE [facility] Specimen Urine Performing Organization Address City/[facility] Phone Number [facility] DEPARTMENT OF PATHOLOGY AND [address] [place] [phone] [place] [address] Sodium level, urine, random (07/02/2018 12:45 PM POWER TRANSFORMER INSPECTOR) Sodium, urine, random <20 mEq/L [facility] Specimen Urine Performing Organization Address City/[facility] Phone Number [facility] DEPARTMENT OF PATHOLOGY AND [address] [place] [phone] [place] [phone] Protein, urine, random (07/02/2018 12:45 PM POWER TRANSFORMER INSPECTOR) Protein, urine random 85 mg/dL [facility] Specimen Urine Performing Organization Address City/[facility] Phone Number [facility] DEPARTMENT OF PATHOLOGY AND [address] [place] [phone] [place] [address] Creatinine level, urine, random (07/02/2018 12:45 PM POWER TRANSFORMER INSPECTOR) Creatinine, urine, random 292 mg/dL [facility] Specimen Urine Performing Organization Address City/[facility]/Zipcode Phone Number [facility] DEPARTMENT OF PATHOLOGY AND [address] [place] [address] [address] Urinalysis, automated with microscopy (07/02/2018 12:45 PM POWER TRANSFORMER INSPECTOR) Color, UA Casi [facility] Appearance, UA Hazy [facility] Specific gravity, UA 1.019 1.001 - 1.035 [facility] pH, UA 5.0 5.0 - 8.5 [facility] Protein, UA 1+ (A) Negative [facility] Glucose, UA Negative Negative [facility] Ketones, UA Negative Negative [facility] Bilirubin, UA Negative Negative [facility] Blood, UA Large (A) Negative [facility] Nitrite, UA Negative Negative [facility] Urobilinogen, UA <2.0 <2.0 [facility] Leukocyte esterase, UA Trace (A) Negative [facility] Epithelial cells, UA 2 /HPF [facility] Round epithelial cells, UA 1 0 - 1 /HPF [facility] WBC, UA 24 (H) 0 - 4 /HPF [facility] RBC, UA 160 (H) 0 - 5 /HPF [facility] Bacteria, UA Few None seen [facility] Amorphous crystals Few [facility] Granular casts, UA 6 (H) 0 - 1 /LPF [facility] Hyaline casts, UA 1 /LPF [facility] Yeast, UA None seen [facility] Yeast with pseudohyphae, UA None seen [facility] Specimen Urine Performing Organization Address City/[facility]/Zipcode Phone Number [facility] DEPARTMENT OF PATHOLOGY AND [address] [place] [phone] [address] Uric acid level (07/02/2018 12:45 PM POWER TRANSFORMER INSPECTOR) Uric acid 8.5 (H) 2.4 - 5.7 mg/dL [facility] Specimen Plasma specimen Performing Organization Address City/[facility]/Zipcode Phone Number [facility] DEPARTMENT OF PATHOLOGY AND [address] [place] [address] [address] Creatine kinase, total (CPK) (07/02/2018 12:45 PM POWER TRANSFORMER INSPECTOR)Only the most recent of2 resultswithin the time period is included. Creatine kinase 1,807 (H) 26 - 192 U/L [facility] Specimen Plasma specimen Performing Organization Address City/[facility] Phone Number [facility] DEPARTMENT OF PATHOLOGY AND [address] [place] [phone] [place] [phone] Lactic acid level, SEPSIS - Now and repeat 2x every 3 hours (07/01/2018 1:30 PM POWER TRANSFORMER INSPECTOR)Only the most recent of3 resultswithin the time period is included. Lactic acid 2.1 0.5 - 2.2 mmol/L [facility] Specimen Blood Performing Organization Address [facility] Phone Number [facility] DEPARTMENT OF PATHOLOGY AND [address] [place] [address] ECG 12 lead (07/01/2018 8:01 AM POWER TRANSFORMER INSPECTOR) Ventricular rate 70 [facility] M[facility] Atrial rate 441 [facility] QRSD interval 178 [facility] QT interval 472 [facility] QTC interval 509 [facility] QRS axis 1 -85 [facility] T wave axis 83 [facility] EKG impression Ventricular-paced rhythm-Biventricular [facility] pacemaker detected-Abnormal ECG-In automated comparison with ECG of 30-JUN-2018 07:47,-No significant change was found- Narrative Performed At Performing Organization Address City/[facility] Cent[facility] Phone Number [facility] [address] [place] [phone] Troponin (07/01/2018 4:41 AM POWER TRANSFORMER INSPECTOR) Troponin <0.30 0.00 - 0.30 ng/mL [facility] Comment: 0.30 - 1.49 ng/mlMay indicate increased risk of acute coronary syndrome. >=1.5 ng/mlConsistent with acute myocardial infarction. The diagnostic value of a single normal or non-diagnostic result is questionable.Serial samples at 2-6 hour intervals are required to rule out acute myocardial injury. Specimen Plasma specimen Performing Organization Address City/[facility]ercode Phone Number [facility] DEPARTMENT OF PATHOLOGY AND [address] [place] [phone] [place] [address] Lactic acid level (07/01/2018 4:41 AM POWER TRANSFORMER INSPECTOR) Lactic acid 2.7 (H) 0.5 - 2.2 mmol/L [facility] Specimen Plasma specimen Performing Organization Address City/[facility]ode Phone Number [facility] DEPARTMENT OF PATHOLOGY AND [address] [place] [address] Ionized calcium (07/01/2018 4:41 AM POWER TRANSFORMER INSPECTOR) pH 7.39 [facility] Ionized calcium 1.11 1.11 - 1.32 mmol/L [facility] Specimen Plasma specimen Performing Organization Address [facility]ercofl Phone Number [facility] DEPARTMENT OF PATHOLOGY AND [address] [place] [address] Comprehensive metabolic panel (07/01/2018 4:41 AM POWER TRANSFORMER INSPECTOR)Only the most recent of2 resultswithin the time period is included. Sodium 135 135 - 148 mEq/L [facility] Potassium 4.1 3.5 - 5.0 mEq/L [facility] Chloride 95 (L) 98 - 112 mEq/L [facility] CO2 27 24 - 31 mEq/L [facility] Anion gap 13@ANIO 7 - 15 mEq/L [facility] BUN 25 (H) 8 - 23 mg/dL [facility] Creatinine 1.61 (H) 0.50 - 0.90 mg/dL [facility] Glucose 131 (H) 65 - 99 mg/dL [facility] Calcium 9.4 8.8 - 10.2 mg/dL [facility] Protein 6.7 6.3 - 8.3 g/dL [facility] Comment: [facility] [place] 4.6-7.0 g/dL 1 week 4.4-7.6 g/dL 7 months-1year5.1-7.3 g/dL 1-2 years5.6-7.5 g/dL >3 years6.0-8.0 g/dL 18-150 6.3-8.3 g/dL Albumin 3.2 (L) 3.5 - 5.0 g/dL [facility] A/G ratio 0.9 0.7 - 3.8 [facility] Alkaline phosphatase 80 35 - 104 U/L [facility] AST 42 (H) 10 - 35 U/L [facility] ALT 21 5 - 50 U/L [facility] Total bilirubin 0.5 0.0 - 1.2 mg/dL [facility] Specimen Plasma specimen Performing Organization Address [facility] Phone Number [facility] DEPARTMENT OF PATHOLOGY AND [address] [place] [address] GENOMIC MEDICINE [facility] [address] [place] [address] XR Pelvis 1 Or 2 Vw (06/30/2018 12:36 PM POWER TRANSFORMER INSPECTOR)Only the most recent of2 resultswithin the time period is included. Narrative Performed At EXAMINATION:XR PELVIS 1 OR 2 VW [facility] CLINICAL HISTORY:post op COMPARISON:06/29/2018 IMPRESSION: Interval placement of intramedullary nail in the left femur across the intertrochanteric fracture. There is mild persistent fracture displacement. No dislocation. Marked hip arthrosis. [facility]-[id number] Procedure Note Interface, Radiology Results Incoming - 06/30/2018 12:42 PM POWER TRANSFORMER INSPECTOR EXAMINATION: XR PELVIS 1 OR 2 VW CLINICAL HISTORY: post op COMPARISON: 06/29/2018 IMPRESSION: Interval placement of intramedullary nail in the left femur across the intertrochanteric fracture. There is mild persistent fracture displacement. No dislocation. Marked hip arthrosis. [facility]-[id number] Performing Organization Address [facility] Phone Number [facility] [address] [place] [address] XR Femur 2 Vw Left (06/30/2018 12:36 PM POWER TRANSFORMER INSPECTOR)Only the most recent of2 resultswithin the time period is included. Narrative Performed At EXAMINATION:XR FEMUR 2 VW LEFT [facility] CLINICAL HISTORY:s p CMN L femur COMPARISON:06/29/2018 IMPRESSION: Mildly displaced intertrochanteric fracture with interval placement of intramedullary nail with interlocking screw in the distal diaphysis. Marked hip and knee osteoarthritis. No displacement. [facility]-[id number] Procedure Note Interface, Radiology Results Incoming - 06/30/2018 12:42 PM POWER TRANSFORMER INSPECTOR EXAMINATION: XR FEMUR 2 VW LEFT CLINICAL HISTORY: s p CMN L femur COMPARISON: 06/29/2018 IMPRESSION: Mildly displaced intertrochanteric fracture with interval placement of intramedullary nail with interlocking screw in the distal diaphysis. Marked hip and knee osteoarthritis. No displacement. [facility]-[id number] Performing Organization Address [facility]ercofl Phone Number [facility] [address] [place] [address] [place] > I Hour (06/30/2018 11:14 AM POWER TRANSFORMER INSPECTOR) Narrative Performed At EXAMINATION:OR [place] >1 HOUR [facility] C-arm fluoroscopy was requested in [place]. Location: [facility] Procedure: FEMUR IM NAIL Start: 936 End: 1113 Fluoro Time: 2M15S Dose: 22.41 mGy Tech: [id number] IMPRESSION: Separate operative report will be issued by the physician performing the procedure. [id number] Procedure Note Hm Interface, Radiology Results Incoming - 07/02/2018 4:49 PM POWER TRANSFORMER INSPECTOR EXAMINATION: OR [place] > 1 HOUR C-arm fluoroscopy was requested in [place]. Location: [facility] Procedure: FEMUR IM NAIL Start: 936 End: 3 Fluoro Time: 2M15S Dose: 22.41 mGy Tech: [email or web address] IMPRESSION: Separate operative report will be issued by the physician performing the procedure. [id number] Performing Organization Address [facility] Phone Number [facility] [address] [place] [address] ECG Pre/Post Op (06/30/2018 7:47 AM POWER TRANSFORMER INSPECTOR) Ventricular rate 70 [facility] Atrial rate 76 [facility] QRSD interval 176 [facility] QT interval 492 [facility] QTC interval 531 [facility] QRS axis 1 -79 [facility] T wave axis 96 [facility] EKG impression Ventricular-paced rhythm-Biventricular [facility] M[facility] pacemaker detected-Abnormal ECG-In automated comparison with ECG of 11-MAR-2015 07:51,-No significant change was found- Narrative Performed At Performing Organization Address [facility] Phone Number [facility] [employer] [address] [place] [address] Partial thromboplastin time, activated (06/30/2018 5:45 AM POWER TRANSFORMER INSPECTOR)Only the most recent of2 resultswithin the time period is included. PTT 32.2 23.0 - 36.0 sec [facility] Comment: PTT therapeutic range for unfractionated heparin is 61.0-112.0 seconds which corresponds to Anti-Xa 0.3-0.7 U/ml. Specimen Blood Performing Organization Address City/[facility]/Zipcode Phone Number [facility] DEPARTMENT OF PATHOLOGY AND [address] [place] [address] Prothrombin time with INR (06/30/2018 5:45 AM POWER TRANSFORMER INSPECTOR)Only the most recent of2 resultswithin the time period is included. Prothrombin time 15.8 (H) 11.5 - 14.5 sec [facility] INR 1.3 [facility] Comment: HOSPITAL The International Normalized Ratio (INR) is a therapeutic monitoring tool for patients who are stable on oral anticoagulant therapy. An INR of 2.0-3.0 is suggested for deep vein thrombosis/pulmonary embolism. Specimen Blood Performing Organization Address City/[facility] Phone Number [facility] DEPARTMENT OF PATHOLOGY AND [address] [place] [phone] PTH-related peptide (06/30/2018 12:45 AM POWER TRANSFORMER INSPECTOR) PTH-related peptide 0.2 <2.0 pmol/L [facility] Comment: - [facility] ADDITIONAL INFORMATION Drive This test was developed and its performance characteristics determined by [facility] in a manner consistent with CLIA requirements. This test has not been cleared or approved by the U.S. Food and Drug Administration. Test Performed by: [facility] [email or web address] - [place] [id number] Specimen Blood Performing Organization Address City/[facility]/Zipcode Phone Number [facility] DEPARTMENT OF PATHOLOGY [address] [place] [phone] AND [employer] MEDICINE [facility] - [address] [place] [address]&[address] Vitamin D 25 hydroxy level (06/29/2018 10:06 PM POWER TRANSFORMER INSPECTOR) Vitamin D, 25-hydroxy 32.1 30.0 - 150.0 [facility] Comment: ng/mL HOSPITAL This assay reports the sum of 25-hydroxy vitamin D3 and 25-hydroxy vitamin D2. Reference range: 0-17 years: Deficiency: less than 20ng/mL Optimum level: greater than or equal to 20 ng/mL. 18 years and older: Deficiency: less than 20ng/mL Insufficiency: 20-29 ng/mL Optimum Level: 30-80 ng/mL The assay reportable range is 3.4155.9 ng/mL. Levels higher than 150 ng/mL may be associated with toxicity. If toxicity is clinically suspected and the reported result is >155.9 ng/mL,contact lab for alternative methods to obtain a definitivelevel. If separate quantitation of 25-hydroxy vitamin D3 and 25-hydroxy vitamin D2 is needed, please contact lab for alternative methods. Specimen Blood Performing Organization Address City/State/Zipcode Phone Number [facility] DEPARTMENT OF PATHOLOGY AND [address] [place] [address] GENOMIC MEDICINE [address] [address] [address] Pelvis Wo Contrast (06/29/2018 9:26 PM POWER TRANSFORMER INSPECTOR) Narrative Performed At EXAMINATION:CT PELVIS WO CONTRAST [facility] CLINICAL HISTORY:Pelvic fxknown or suspected TECHNIQUE:Multiple axial images of the pelvis were obtained without intravenous contrast. The lack of intravenous contrast reduces sensitivity of detecting solid organ disease. Sagittal and coronal computerized reformatted images were also obtained. CT imaging was performed with iterative reconstruction technique and/or automated exposure control to reduce radiation dose. COMPARISON:None. IMPRESSION: Acute fracture of the left femur is seen extending to the intertrochanteric region. No significant displacement of fracture fragments is seen. Some intramuscular edema is seen surrounding the left femur fracture. Moderate degenerative change of the right hip and mild degenerative change of the left hip. Degenerative changes of the lower lumbar spine. Bladder is decompressed with Baron catheter in the lumen. Diverticulosis is seen of the large bowel. Atherosclerotic vascular calcifications are seen. [facility]-[id number] Procedure Note Interface, Radiology Results Incoming - 06/29/2018 9:38 PM POWER TRANSFORMER INSPECTOR EXAMINATION: CT PELVIS WO CONTRAST CLINICAL HISTORY: Pelvic fx known or suspected TECHNIQUE:Multiple axial images of the pelvis were obtained without intravenous contrast. The lack of intravenous contrast reduces sensitivity of detecting solid organ disease. Sagittal and coronal computerized reformatted images were also obtained. CT imaging was performed with iterative reconstruction technique and/or automated exposure control to reduce radiation dose. COMPARISON: None. IMPRESSION: Acute fracture of the left femur is seen extending to the intertrochanteric region. No significant displacement of fracture fragments is seen. Some intramuscular edema is seen surrounding the left femur fracture. Moderate degenerative change of the right hip and mild degenerative change of the left hip. Degenerative changes of the lower lumbar spine. Bladder is decompressed with Baron catheter in the lumen. Diverticulosis is seen of the large bowel. Atherosclerotic vascular calcifications are seen. [facility]-[id number] Performing Organization Address City/[facility] Cent[facility]ode Phone Number [facility] [address] [place] [address] Type and screen (06/29/2018 8:19 PM POWER TRANSFORMER INSPECTOR) ABO grouping O [facility] Rh type POS [facility] Antibody screen (gel) NEG [facility] Specimen Blood Performing Organization Address City/[facility]ercode Phone Number [facility] DEPARTMENT OF PATHOLOGY AND [address] [place] [address] GENOMIC MEDICINE [facility] [address] [place] [address] XR Hips Bilateral Ap Lateral W Ap Pelvis (06/29/2018 8:18 PM POWER TRANSFORMER INSPECTOR) Narrative Performed At EXAM:XR PELVIS 1 OR 2 VW, XR HIPS BILATERAL AP LATERAL W AP PELVIS [facility] CLINICAL HISTORY:Pelvic fxknown or suspected COMPARISON:None IMPRESSION: 1.Moderate/advanced joint space degenerative changes of the bilateral hips seen. No displaced fracture or dislocation is identified radiographically. Pelvic rings are intact. No sacral alar fracture is seen. Multiple phleboliths are identified. Soft tissues are otherwise unremarkable. If persistent concern for pelvic fracture, CT may be obtained. [facility]-[id number] Procedure Note Interface, Radiology Results Incoming - 06/29/2018 8:23 PM POWER TRANSFORMER INSPECTOR EXAM: XR PELVIS 1 OR 2 VW, XR HIPS BILATERAL AP LATERAL W AP PELVIS CLINICAL HISTORY: Pelvic fx known or suspected COMPARISON: None IMPRESSION: 1. Moderate/advanced joint space degenerative changes of the bilateral hips seen. No displaced fracture or dislocation is identified radiographically. Pelvic rings are intact. No sacral alar fracture is seen. Multiple phleboliths are identified. Soft tissues are otherwise unremarkable. If persistent concern for pelvic fracture, CT may be obtained. [id number] Performing Organization Address City/State/Zipcode Phone Number [facility] [address] [place] [address] after 07/08/2017 Insurance Payer Benefit Plan / Group Subscriber ID Type Phone Address MEDICARE MEDICARE PART A AND B xxxxxxxxxx Medicare [place], [place] AETNA A[employer]ITY xxxxxxxxx Indemnity Advance Directives Patient has advance care planning documents, and code status on file. For more information, please contact:Milind Vences[address] [place] [address] Code Status Date Activated Date Inactivated Comments DNR 06/30/2018 5:18 AM Code Status decision reached by: Patient
[2018-07-09] MEDS ORDERED: FUROSEMIDE 40 MG TABLET PO PRN (18:17)
[2018-07-09] MEDS ORDERED: DOCUSATE NA/SENNA CONC 1 TAB PO PRN (18:30)
[2018-07-09] MEDS ORDERED: HYDROCODONE/APAP 5/325 MG TAB PO PRN (18:34)
[2018-07-09] MEDS: TRAMADOL HCL 50 MG TAB PO PRN ×2 (18:35→23:35)
[2018-07-09] MEDS: MELATONIN 3 MG TABLET PO PRN (19:24)
[2018-07-09] MEDS: ACETAMINOPHEN 325 MG TABLET PO PRN ×2 (19:24→22:54)
[2018-07-09] MEDS: PRAMIPEXOLE 0.25 MG TAB PO SCH (20:00)
[2018-07-09] MEDS ORDERED: DOCUSATE NA/SENNA CONC 1 TAB PO SCH (21:00)
--- NOTE | 2018-07-10 00:57 | FAST ---
SHIFT START DATE/TIME: 07/09/2018 19:00 (DIGITAL MUSIC INSTRUCTOR) SHIFT END DATE/TIME: 07/10/2018 07:00 (DIGITAL MUSIC INSTRUCTOR) NAME LINH SANDS DATE OF : 1935 DATE OF ADMISSION: 07/09/2018 17:51 (DIGITAL MUSIC INSTRUCTOR) PHONE: AGE: 83 SSN# [id number] GENDER: Female ENCOUNTER PHYSICIAN: Dr. Rambo De La Rosa M.D. ADMISSION DIAGNOSIS: - Orthopaedic Disorders 08 - Unilateral Hip Fracture (08.11) Left Hip Fracture. EATING: Activity did not occur on this shift EATING - SCORE: 0-UNK GROOMING: Activity did not occur on this shift GROOMING - SCORE: 0-UNK BATHING: Activity did not occur on this shift BATHING - SCORE: 0-UNK DRESSING - UPPER BODY: Activity did not occur on this shift ARTICLES SCORE Total number of steps: 0 DRESSING - UPPER BODY - SCORE: 0-UNK DRESSING - LOWER BODY: Activity did not occur on this shift ARTICLES SCORE Total number of steps: 0 DRESSING - LOWER BODY - SCORE: 0-UNK TOILETING: Activity did not occur on this shift TOILETING - SCORE: 0-UNK BLADDER MANAGEMENT: [place] removes incontinent device (Depends, pull ups, etc.); cleans the patient after accident / inco ntinent episode; and, applies new incontinent device. BLADDER MANAGEMENT - SCORE: 1-DEP BOWEL MANAGEMENT: Activity did not occur on this shift BOWEL MANAGEMENT - SCORE: 7-IND TRANSFERS: BED, CHAIR, WHEELCHAIR: Patient requires more than one helper and/or the use of a mechanical lift is utilized TRANSFERS: BED, CHAIR, WHEELCHAIR - SCORE: 1-DEP TRANSFERS: TOILET: Activity did not occur on this shift TRANSFERS: TOILET - SCORE: 0-UNK TRANSFERS: SHOWER: Activity did not occur on this shift TRANSFERS: SHOWER - SCORE: 0-UNK TRANSFERS: TUB: Activity did not occur on this shift TRANSFERS: TUB - SCORE: 0-UNK LOCOMOTION: WALK: Activity did not occur on this shift LOCOMOTION: WALK - SCORE: 0-UNK LOCOMOTION: WHEELCHAIR: Activity did not occur on this shift LOCOMOTION: WHEELCHAIR - SCORE: 0-UNK COMPREHENSION: COMPREHENSION: TYPE: Both COMPREHENSION - STEP 1: Does the patient require help from a person or device, or need extra time to understand complex and a bstract ideas (such as current events, finances, discharge planning, medical issues, relationships, e tc)? No. COMPREHENSION - STEP 2: Does the patient need extra time, require an assistive device (such as glasses for visual comprehensi on or a hearing aid for auditory comprehension) or does s/he have mild difficulty understanding compl ex and abstract information? Yes. COMPREHENSION - SCORE: 6-SUSANA EXPRESSION EXPRESSION: TYPE: Both EXPRESSION - STEP 1: Does the patient require help from a person or device, or need extra time expressing complex and abst ract ideas (such as current events, finances, discharge planning, medical issues, relationships, etc) ? No. EXPRESSION - STEP 2: Does the patient need extra time, require an assistive device (such as augmentive communication syste m or a communication board), OR does s/he have mild difficulty expressing complex and abstract ideas (including mild dysarthria or mild word-find problems)? No. EXPRESSION - SCORE: 7-IND SOCIAL INTERACTION: SOCIAL INTERACTION - STEP 1: Does the patient require a helper to interact with others in social and therapeutic situations? No. SOCIAL INTERACTION - STEP 2: Does the patient need extra time in social situations, OR does s/he interact with staff, other patien ts, and family members ONLY in structured environments, OR does s/he require medication for social in teraction? Yes, patient requires medication for social interaction SOCIAL INTERACTION - SCORE: 6-SUSANA PROBLEM SOLVING: PROBLEM SOLVING - STEP 1: Does the patient need help from a person or device, or need extra time to solve complex problems such as managing a checking account or confronting interpersonal problems? No. PROBLEM SOLVING - STEP 2: Does the patient require extra time to make decisions or solve problems, OR does s/he have slight dif ficulty reading, initiating, or self-correcting in unfamiliar situations? Yes, patient needs extra ti me. PROBLEM SOLVING - SCORE: 6-SUSANA MEMORY: MEMORY - STEP 1: Does the patient need help from a person or device, or need extra time to remember frequently encount ered people, daily routines, and executing requests? No. MEMORY - STEP 2: Does the patient have slight difficulty recognizing frequently encountered people, daily routines, or executing requests without the need for repetition or using self-initiated or environmental cues to remember? No. MEMORY - SCORE: 7-IND SIGNATURE PANEL: The following modified sections: Eating - Score, Grooming - Score, Bathing - Score, Dressing - Upper Body - Score, Dressing - Lower Body - Score, Toileting - Score, Bladder Management - Score, Bowel Man agement - Score, Transfers: Bed, Chair, Wheelchair - Score, Transfers: Toilet - Score, Transfers: Rubi wer - Score, Transfers: Tub - Score, Locomotion: Walk - Score, Locomotion: Wheelchair - Score, Compre hension - Score, Expression - Score, Social Interaction - Score, Problem Solving - Score, Memory - Sc ore were [electronically] signed by Jody Lee CNA on MonJul 10 2018 00:57:20 T-0600 ([facility])
[2018-07-10] MEDS: ACETAMINOPHEN 325 MG TABLET PO PRN ×4 (02:27→19:31)
[2018-07-10] MEDS: TRAMADOL HCL 50 MG TAB PO PRN ×4 (05:38→18:25)
[2018-07-10 06:11] LABS: Absolute Lymphocytes (CBC) 1.8 K/uL (0.7-4.9); Absolute Monocytes 0.7 K/uL (0.1-1.3); Absolute Neutrophil 7.3 K/uL (1.8-8.0); Eosinophils % 1.7 % (0-4.4); Hematocrit 32.5 % (36.0-45.0); Lymphocytes % 18.3 % (15.3-44.8); MPV 7.5 fL (7.6-11.3); Monocytes % 6.5 % (3.3-12.3); RBC Red Blood Cell Count 3.33 M/uL (3.86-4.86)
[2018-07-10] MEDS: PANTOPRAZOLE 40MG TABLET PO SCH (06:21)
[2018-07-10] MEDS: LEVOTHYROXINE SOD 0.075 MG TAB PO SCH (06:21)
[2018-07-10 06:29] LABS: Magnesium 1.7 mg/dL (1.8-2.4); Potassium 4.2 mmol/L (3.5-5.1); Prealbumin 15.4 mg/dL (20-40)
[2018-07-10] MEDS: LIDOCAINE 5% PATCH TOP SCH (07:45)
[2018-07-10] MEDS: FERROUS SULFATE 325 MG TAB PO SCH (08:31)
[2018-07-10] MEDS: LISINOPRIL 20 MG TAB PO SCH (08:31)
[2018-07-10] MEDS: VENLAFAXINE HCL XR 75 MG CAP PO SCH (08:31)
[2018-07-10] MEDS: hydroCHLOROthiazide 25 MG TAB PO SCH (08:31)
[2018-07-10] MEDS: DULOXETINE 20 MG CAP PO SCH (08:32)
[2018-07-10] MEDS: FE SULF/FA/VIT B COMP & C TAB PO SCH (08:32)
[2018-07-10] MEDS: AMLODIPINE 5 MG TAB PO SCH (08:32)
[2018-07-10] MEDS: PROMOD 30 ML DOSE PO SCH ×2 (08:33→19:35)
[2018-07-10] MEDS: RIVAROXABAN 15 MG TABLET PO SCH (08:34)
[2018-07-10] MEDS ORDERED: GABAPENTIN 100 MG CAP PO SCH (09:30)
--- NOTE | 2018-07-10 15:54 | FAST ---
ENCOUNTER DATE AND TIME: 07/10/2018 08:00 (CERTIFIED MEDICAL TECHNICIAN ASSISTANT) NAME LINH SANDS DATE OF : 1935 DATE OF ADMISSION: 07/09/2018 17:51 (CERTIFIED MEDICAL TECHNICIAN ASSISTANT) PHONE: AGE: 83 SSN# [id number] GENDER: Female ENCOUNTER PHYSICIAN: Dr. Rambo De La Rosa M.D. ADMISSION DIAGNOSIS: - Orthopaedic Disorders 08 - Unilateral Hip Fracture (08.11) Left Hip Fracture. EATING: Activity did not occur on this shift EATING - SCORE: 0-UNK GROOMING: Activity did not occur on this shift GROOMING - SCORE: 0-UNK BATHING: Activity did not occur on this shift BATHING - SCORE: 0-UNK DRESSING - UPPER BODY: Activity did not occur on this shift Patient is not dressing in public clothing ARTICLES SCORE Total number of steps: 0 DRESSING - UPPER BODY - SCORE: 0-UNK DRESSING - LOWER BODY: Activity did not occur on this shift Patient is not dressing in public clothing ARTICLES SCORE Total number of steps: 0 DRESSING - LOWER BODY - SCORE: 0-UNK TOILETING: Activity did not occur on this shift TOILETING - SCORE: 0-UNK BLADDER MANAGEMENT: Activity did not occur on this shift BLADDER MANAGEMENT - SCORE: 7-IND BOWEL MANAGEMENT: Activity did not occur on this shift BOWEL MANAGEMENT - SCORE: 7-IND TRANSFERS: BED, CHAIR, WHEELCHAIR: TRANSFERS: BED, CHAIR, WHEELCHAIR - STEP 1: Does the patient require assistance of a person or device, or need extra time with bed, chair, or whe elchair transfers? Yes. TRANSFERS: BED, CHAIR, WHEELCHAIR - STEP 2: Does the patient require the assistance of a helper? Yes. TRANSFERS: BED, CHAIR, WHEELCHAIR - STEP 3: How much assistance does the patient require from the helper? Steadying/guiding assistance TRANSFERS: BED, CHAIR, WHEELCHAIR - SCORE: 4-MIN TRANSFERS: TOILET: Activity did not occur on this shift TRANSFERS: TOILET - SCORE: 0-UNK TRANSFERS: SHOWER: Activity did not occur on this shift TRANSFERS: SHOWER - SCORE: 0-UNK TRANSFERS: TUB: Activity did not occur on this shift TRANSFERS: TUB - SCORE: 0-UNK LOCOMOTION: WALK: LOCOMOTION: WALK - STEP 1: Does the patient need help from a person or device, or need extra time to walk 150 feet? Yes. LOCOMOTION: WALK - STEP 2: How much assistance does the patient require to walk a minimum of 150 feet? Patient walks less than 1 50 feet - but more than 50 feet - with the assistance of only one helper LOCOMOTION: WALK - SCORE: 2-MAX LOCOMOTION: WHEELCHAIR: LOCOMOTION: WHEELCHAIR - STEP 1: Does the patient need help to go 150 feet in a wheelchair? Yes. LOCOMOTION: WHEELCHAIR - STEP 2: How much assistance does the patient need from the helper? Only supervision, cuing, or coaxing LOCOMOTION: WHEELCHAIR - SCORE: 5-SUP LOCOMOTION: STAIRS: Activity did not occur on this shift LOCOMOTION: STAIRS - SCORE: 0-UNK COMPREHENSION: COMPREHENSION - SCORE: 0-UNK EXPRESSION EXPRESSION - SCORE: 0-UNK SOCIAL INTERACTION: SOCIAL INTERACTION - SCORE: 0-UNK PROBLEM SOLVING: PROBLEM SOLVING - SCORE: 0-UNK MEMORY: MEMORY - SCORE: 0-UNK SIGNATURE PANEL: The following modified sections: Transfers: Bed, Chair, Wheelchair - Score, Transfers: Toilet - Score , Locomotion: Walk - Score, Locomotion: Wheelchair - Score, Locomotion: Stairs - Score were [electron gabo] signed by Roberto Sumner PTA on MonJul 10 2018 15:53:39 GMT-0600 (Central Standard Time)
--- NOTE | 2018-07-10 16:06 | FAST ---
ENCOUNTER DATE AND TIME: 07/09/2018 08:00 (LICENSED AND CERTIFIED MIDWIFE) NAME LINH SANDS DATE OF : 1935 DATE OF ADMISSION: 07/09/2018 17:51 (LICENSED AND CERTIFIED MIDWIFE) PHONE: AGE: 83 SSN# [id number] GENDER: Female ENCOUNTER PHYSICIAN: Dr. Rambo De La Rosa M.D. ADMISSION DIAGNOSIS: - Orthopaedic Disorders 08 - Unilateral Hip Fracture (08.11) Left Hip Fracture. EATING: Activity did not occur on this shift EATING - SCORE: 0-UNK GROOMING: Activity did not occur on this shift GROOMING - SCORE: 0-UNK BATHING: Activity did not occur on this shift BATHING - SCORE: 0-UNK DRESSING - UPPER BODY: Activity did not occur on this shift Patient is not dressing in public clothing ARTICLES SCORE Total number of steps: 0 DRESSING - UPPER BODY - SCORE: 0-UNK DRESSING - LOWER BODY: Activity did not occur on this shift Patient is not dressing in public clothing ARTICLES SCORE Total number of steps: 0 DRESSING - LOWER BODY - SCORE: 0-UNK TOILETING: Activity did not occur on this shift TOILETING - SCORE: 0-UNK BLADDER MANAGEMENT: Activity did not occur on this shift BLADDER MANAGEMENT - SCORE: 7-IND BOWEL MANAGEMENT: Activity did not occur on this shift BOWEL MANAGEMENT - SCORE: 7-IND TRANSFERS: BED, CHAIR, WHEELCHAIR: TRANSFERS: BED, CHAIR, WHEELCHAIR - STEP 1: Does the patient require assistance of a person or device, or need extra time with bed, chair, or whe elchair transfers? Yes. TRANSFERS: BED, CHAIR, WHEELCHAIR - STEP 2: Does the patient require the assistance of a helper? Yes. TRANSFERS: BED, CHAIR, WHEELCHAIR - STEP 3: How much assistance does the patient require from the helper? Steadying/guiding assistance TRANSFERS: BED, CHAIR, WHEELCHAIR - SCORE: 4-MIN TRANSFERS: TOILET: TRANSFERS: TOILET - STEP 1: Does the patient require the assistance of a person or device, or need extra time with toilet transfe rs? Yes. TRANSFERS: TOILET - STEP 2: Does the patient require the assistance of a helper? Yes. TRANSFERS: TOILET - STEP 3: How much assistance does the patient require from the helper? Only supervision, cuing, coaxing, OR he lp to set out transfer equipment or to lock brakes and/or lift foot rests TRANSFERS: TOILET - SCORE: 5-SUP TRANSFERS: SHOWER: Activity did not occur on this shift TRANSFERS: SHOWER - SCORE: 0-UNK TRANSFERS: TUB: Activity did not occur on this shift TRANSFERS: TUB - SCORE: 0-UNK LOCOMOTION: WALK: LOCOMOTION: WALK - STEP 1: Does the patient need help from a person or device, or need extra time to walk 150 feet? Yes. LOCOMOTION: WALK - STEP 2: How much assistance does the patient require to walk a minimum of 150 feet? Patient walks less than 1 50 feet - but more than 50 feet - with the assistance of only one helper LOCOMOTION: WALK - SCORE: 2-MAX LOCOMOTION: WHEELCHAIR: LOCOMOTION: WHEELCHAIR - STEP 1: Does the patient need help to go 150 feet in a wheelchair? Yes. LOCOMOTION: WHEELCHAIR - STEP 2: How much assistance does the patient need from the helper? Only supervision, cuing, or coaxing LOCOMOTION: WHEELCHAIR - SCORE: 5-SUP LOCOMOTION: STAIRS: LOCOMOTION: STAIRS - STEP 1: Does the patient need help to go up and down 12 to 14 stairs? Yes. LOCOMOTION: STAIRS - STEP 2: How much assistance does the patient need from the helper to go a minimum of 12 to 14 stairs? The pat ient goes less than 12 stairs, but at least 4 stairs LOCOMOTION: STAIRS - SCORE: 2-MAX COMPREHENSION: COMPREHENSION - SCORE: 0-UNK EXPRESSION EXPRESSION - SCORE: 0-UNK SOCIAL INTERACTION: SOCIAL INTERACTION - SCORE: 0-UNK PROBLEM SOLVING: PROBLEM SOLVING - SCORE: 0-UNK MEMORY: MEMORY - SCORE: 0-UNK SIGNATURE PANEL: The following modified sections: Transfers: Bed, Chair, Wheelchair - Score, Transfers: Toilet - Score , Locomotion: Walk - Score, Locomotion: Wheelchair - Score, Locomotion: Stairs - Score were [adolfo [email or web address]] signed by Denise Bill on MonJul 10 2018 16:05:27 GMT-0600 (Central Standard Time)
--- NOTE | 2018-07-10 16:30 | FAST ---
SHIFT START DATE/TIME: 07/10/2018 07:00 (SOCKET PULLER) SHIFT END DATE/TIME: 07/10/2018 19:00 (SOCKET PULLER) NAME LINH SANDS DATE OF : 1935 DATE OF ADMISSION: 07/09/2018 17:51 (SOCKET PULLER) PHONE: AGE: 83 SSN# [id number] GENDER: Female ENCOUNTER PHYSICIAN: Dr. Rambo De La Rosa M.D. ADMISSION DIAGNOSIS: - Orthopaedic Disorders 08 - Unilateral Hip Fracture (08.11) Left Hip Fracture. EATING: EATING - STEP 1: Does the patient require the assistance of a person or device, or need extra time when eating? Yes. EATING - STEP 2: Does the patient require the assistance of a helper? No, patient only requires an assistive device, O R s/he takes more than reasonable time to eat, OR there is a safety concern, OR s/he requires modifie d food consistency EATING - SCORE: 6-SUSANA GROOMING: Comb/brush hair Oral care GROOMING - STEP 1: Does the patient require the assistance of a person or device, or need extra time when grooming? Yes. GROOMING - STEP 2: Does the patient require the assistance of a helper? No. The patient only requires an assistive devic e, OR takes more than reasonable time to groom, OR there is a concern for safety as the patient groom s GROOMING - SCORE: 6-SUSANA BATHING: Activity did not occur on this shift BATHING - SCORE: 0-UNK DRESSING - UPPER BODY: Activity did not occur on this shift ARTICLES SCORE Total number of steps: 0 DRESSING - UPPER BODY - SCORE: 0-UNK DRESSING - LOWER BODY: Activity did not occur on this shift ARTICLES SCORE Total number of steps: 0 DRESSING - LOWER BODY - SCORE: 0-UNK TOILETING: TOILETING - STEP 1: Does the patient require the assistance of a person or device, or need extra time with toileting? Yes . TOILETING - STEP 2: Does the patient require the assistance of a helper? Yes. TOILETING - STEP 3: How much assistance does the patient require from the helper? Hands-on assistance from the helper TOILETING - STEP 4: Of the 3 tasks: 1) Adjusting clothing prior to use, 2) Cleansing of perineal area, 3) Adjusting clot penny after use; How many tasks does the patient perform WITHOUT assistance of the helper? Two tasks TOILETING - SCORE: 3-MOD BLADDER MANAGEMENT: [place] removes incontinent device (Depends, pull ups, etc.); cleans the patient after accident / inco ntinent episode; and, applies new incontinent device. BLADDER MANAGEMENT - SCORE: 1-DEP BLADDER MANAGEMENT - FREQUENCY OF ACCIDENTS: BLADDER MANAGEMENT(FA) - STEP 1: How many accidents has the patient had during the current shift? 3 BOWEL MANAGEMENT: Activity did not occur on this shift BOWEL MANAGEMENT - SCORE: 7-IND TRANSFERS: BED, CHAIR, WHEELCHAIR: TRANSFERS: BED, CHAIR, WHEELCHAIR - STEP 1: Does the patient require assistance of a person or device, or need extra time with bed, chair, or whe elchair transfers? Yes. TRANSFERS: BED, CHAIR, WHEELCHAIR - STEP 2: Does the patient require the assistance of a helper? Yes. TRANSFERS: BED, CHAIR, WHEELCHAIR - STEP 3: How much assistance does the patient require from the helper? Steadying/guiding assistance TRANSFERS: BED, CHAIR, WHEELCHAIR - SCORE: 4-MIN TRANSFERS: TOILET: TRANSFERS: TOILET - STEP 1: Does the patient require the assistance of a person or device, or need extra time with toilet transfe rs? Yes. TRANSFERS: TOILET - STEP 2: Does the patient require the assistance of a helper? Yes. TRANSFERS: TOILET - STEP 3: How much assistance does the patient require from the helper? Patient performs half or more of the tr ansferring tasks TRANSFERS: TOILET - STEP 4: Does the patient need only incidental help such as contact guard or steadying during toilet transfer? Yes. TRANSFERS: TOILET - SCORE: 4-MIN TRANSFERS: SHOWER: Activity did not occur on this shift TRANSFERS: SHOWER - SCORE: 0-UNK TRANSFERS: TUB: Activity did not occur on this shift TRANSFERS: TUB - SCORE: 0-UNK LOCOMOTION: WALK: Activity did not occur on this shift LOCOMOTION: WALK - SCORE: 0-UNK LOCOMOTION: WHEELCHAIR: Activity did not occur on this shift LOCOMOTION: WHEELCHAIR - SCORE: 0-UNK COMPREHENSION: COMPREHENSION: TYPE: Both COMPREHENSION - STEP 1: Does the patient require help from a person or device, or need extra time to understand complex and a bstract ideas (such as current events, finances, discharge planning, medical issues, relationships, e tc)? No. COMPREHENSION - STEP 2: Does the patient need extra time, require an assistive device (such as glasses for visual comprehensi on or a hearing aid for auditory comprehension) or does s/he have mild difficulty understanding compl ex and abstract information? Yes. COMPREHENSION - SCORE: 6-SUSANA EXPRESSION EXPRESSION: TYPE: Both EXPRESSION - STEP 1: Does the patient require help from a person or device, or need extra time expressing complex and abst ract ideas (such as current events, finances, discharge planning, medical issues, relationships, etc) ? No. EXPRESSION - STEP 2: Does the patient need extra time, require an assistive device (such as augmentive communication syste m or a communication board), OR does s/he have mild difficulty expressing complex and abstract ideas (including mild dysarthria or mild word-find problems)? Yes. EXPRESSION - SCORE: 6-SUSANA SOCIAL INTERACTION: SOCIAL INTERACTION - STEP 1: Does the patient require a helper to interact with others in social and therapeutic situations? No. SOCIAL INTERACTION - STEP 2: Does the patient need extra time in social situations, OR does s/he interact with staff, other patien ts, and family members ONLY in structured environments, OR does s/he require medication for social in teraction? Yes, patient needs extra time SOCIAL INTERACTION - SCORE: 6-SUSANA PROBLEM SOLVING: PROBLEM SOLVING - STEP 1: Does the patient need help from a person or device, or need extra time to solve complex problems such as managing a checking account or confronting interpersonal problems? No. PROBLEM SOLVING - STEP 2: Does the patient require extra time to make decisions or solve problems, OR does s/he have slight dif ficulty reading, initiating, or self-correcting in unfamiliar situations? Yes, patient needs extra ti me. PROBLEM SOLVING - SCORE: 6-SUSANA MEMORY: MEMORY - STEP 1: Does the patient need help from a person or device, or need extra time to remember frequently encount ered people, daily routines, and executing requests? No. MEMORY - STEP 2: Does the patient have slight difficulty recognizing frequently encountered people, daily routines, or executing requests without the need for repetition or using self-initiated or environmental cues to remember? Yes. MEMORY - SCORE: 6-SUSANA SIGNATURE PANEL: The following modified sections: Eating - Score, Grooming - Score, Bathing - Score, Dressing - Upper Body - Score, Dressing - Lower Body - Score, Toileting - Score, Bladder Management - Score, Bowel Man agement - Score, Transfers: Bed, Chair, Wheelchair - Score, Transfers: Toilet - Score, Transfers: Rubi wer - Score, Transfers: Tub - Score, Locomotion: Walk - Score, Locomotion: Wheelchair - Score, Compre hension - Score, Expression - Score, Social Interaction - Score, Problem Solving - Score, Memory - Sc ore were [electronically] signed by Julio Marin on MonJul 10 2018 16:29:03 GMT-0600 (Central Standard Time)
--- NOTE | 2018-07-10 17:33 | R.HP ---
FACILITY: [facility] ENCOUNTER DATE AND TIME: 07/10/2018 17:26 (TOOL MAKER APPRENTICE) MR#: [id number] NAME LINH SANDS ADDRESS: [address] [place] [address] RO[address] [facility] CITY: [place]IP [address] PHONE: DATE OF : 1935 AGE: 83 SSN# [id number] GENDER: Female DEXTERITY Right-handed MARITAL STATUS RACE White PRE-HOSPITAL LIVING SETTING 01 - Home (private home/apt. board/care, assisted living, snf, transitional living) PRE-HOSPITAL LIVING WITH Alone ENCOUNTER PHYSICIAN: Dr. Rambo De La Rosa M.D. REFERRING DOCTOR: Reynaldo Handley DATE OF ADMISSION: 07/09/2018 17:51 (TOOL MAKER APPRENTICE) REFERRING FACILITY [facility] HOME TYPE AND DETAILS: Type of home: single family house # of levels in the residence: 1 # of steps within the residence: 0 # of steps to enter the residence: 5 ADMISSION DIAGNOSIS: Left Hip Fracture ONSET DATE: 06/29/2018 PRIMARY DIAGNOSIS-RELATED SURGERIES: IM Nailing,Left femur - performed by Ezequiel Harrington on 06/30/2018 SECONDARY/COMORBID DIAGNOSES (TIERED): - N/A Chronic Atrial Fibrillation Hypertension Hypothyroidism Restless Leg Syndrome ACUTE KIDNEY INJURY Anemia HISTORY OF PRESENT ILLNESS (HPI): Pt. is a 83 yo Right-handed white female. On 06/29/2018 she was admitted to [facility] with diagnosis Left Hip Fracture. Her impairment category is Orthopaedic Disorders 08 - Unilateral Hip Fracture (08.11). Pre-morbidly, Pt. was independent/mod-I in Self-Care, Sphincter Control, Transfers Control, Communica tion, Social Cognition, and Locomotion; and she had good Sphincter Control. Currently, she has deficits of Self-Care, Transfers Control, Endurance, Balance, Safety Awareness, an d Locomotion. Pt. is now referred to [facility] for acute in-patient rehabilitation in order to maximize patient's functional independence in activities of daily living, strength, ROM, and mobi lity. Patient has realistic goal of being discharged at assistance level 6-Radha to reside at Home with Fam wilmer/Relatives. MEDICATION ALLERGIES: Codeine ENVIRONMENTAL ALLERGIES: None Known - Substance Allergies None Known - Other Allergies None Known PAST MEDICAL HISTORY: ACUTE KIDNEY INJURY Anemia Chronic Atrial Fibrillation Hypertension Hypothyroidism Restless Leg Syndrome PAST SURGICAL HISTORY: PACEMAKER PLACEMENT FAMILY HISTORY: Family history is not contributory. SOCIAL HISTORY: - Home Living Alone REVIEW OF SYSTEMS: - Gen No Chills Fatigue No Fever - Eyes No Double Vision No itchiness - ENMT No Difficulty Swallowing - CVS No Chest Discomfort No Chest Pain Fatigue No Weight Gain - Resp No Cough No Shortness of Breath - GI Continent No Abdominal Pain No Constipation No Diarrhea - Continent No Kidney Pain No Painful Urination No Urinary Urgency - MSK No Joint Pain Muscle Cramps No Stiffness - Skin No Itching No Rash No Suspicious Lesions - Neuro Coordination Difficulty No Difficulty with Concentration No Memory Loss No Seizures Weakness - Psych No Anxiety No Depression No HIV Exposure No Persistent Infections No Seasonal Allergies - Endo No Cold/Heat Intolerance No Excessive Hunger No Excessive Thirst No Excessive Urination PHYSICAL EXAM - Gen Alert and awake Lying in bed No apparent distress Oriented to: person, time, and place - Skin No breakdown No abnormalities - Eyes No abnormalities - ENMT No abnormalities - Neck No abnormalities - CVS RRR - Chest No abnormalities - Resp Clear to auscultation - Abd +bowel sounds - GI Soft Deferred - No abnormalities - Ext Left hip surgical site has good hemostasis. - MSK 4+/5 weakness in left lower extremity - Neuro 4/5 strength left lower extremity. - Psych No abnormalities VITAL SIGNS Temperature: 98 F SBP/DBP: 124/55 Pulse: 69 Resp: 18 NURSING: - Shower allowing shower - Skin care per protocol PRECAUTIONS: - Posterior Hip Precaution No adduction across midline No external rotation No hip flexion >90 degrees No internal rotation No wheel chair propulsion - Weight Bearing Precaution WBAT left LE ACTIVITIES OOB only with supervision FUNCTIONAL STATUS: - Self-Care A. Eating Ind sup B. Grooming Ind sup C. Bathing Ind modA D. Dressing - Upper Ind Maria Isabel E. Dressing - Lower Ind maxA F. Toileting Ind modA - Sphincter Control G: Bladder control Ind Ind H: Bowel control Ind Ind - Transfers Control I. Bed/Chair/Wheelchair Ind Maria Isabel J. Toilet Ind Maria Isabel K. Tub/Shower Ind modA - Locomotion L. Walk/Wheelchair (B) Ind Maria Isabel M. Stairs Ind ADNO - Communication N. Comprehension (B) Ind Radha O. Expression (B) Ind Radha - Social Cognition P. Social Interaction Ind Radah Q. Problem Solving Ind Radha R. Memory Ind Radha - Endurance Fair - Balance Fair - Safety Awareness Fair CURRENT [facility]. DEFICITS: Self-Care, Transfers Control, Endurance, Balance, Safety Awareness, and Locomotion ASSESSMENT: Pt. is a 83 yo Right-handed white female.On 06/29/2018 she was admitted to [facility] with francseca gnosis Left Hip Fracture.Her impairment category is Orthopaedic Disorders 08 - Unilateral Hip Fractu re (.).Pre-morbidly, Pt. was independent/mod-I in Self-Care, Sphincter Control, Transfers Control , Communication, Social Cognition, and Locomotion; and she had good Sphincter Control.Currently, she has deficits of Self-Care, Transfers Control, Endurance, Balance, Safety Awareness, and Locomotion.Pt . is now referred to [facility] for acute in-patient rehabilitation in order t o maximize patient's functional independence in activities of daily living, strength, ROM, and mobili ty.- Rehab Goal Patient has realistic goal of being discharged at assistance level 6-Radha to reside at Home with Fam wilmer/Relatives. REHAB PLAN: - Physical Therapy Decreased range of motion - to improve, our physical therapists will perform initial evaluation of pt 's status upon admission and devise an individualized program for increasing patient's Range of Motio n. Gait dysfunction - to improve, our physical therapists will perform initial evaluation of pt's status upon admission and devise an individualized program for Gait Training, and Wheel Chair mobility Inability to transfer - to improve, our physical therapists will perform initial evaluation of pt's s tatus upon admission and devise an individualized program for Bed mobility Need for home safety evaluation - to improve, our physical therapists will perform initial evaluation of pt's status upon admission and devise an individualized program for Home Evaluation Need in caregiver upon discharge - to improve, our physical therapists will perform initial evaluatio n of pt's status upon admission and devise an individualized program for Caregiver Training New precaution - to improve, our physical therapists will perform initial evaluation of pt's status u johanna admission and devise an individualized program for Patient precaution education Poor balance - to improve, our physical therapists will perform initial evaluation of pt's status upo n admission and devise an individualized program for Balance Training Poor endurance - to improve, our physical therapists will perform initial evaluation of pt's status u johanna admission and devise an individualized program for Endurance Training Weakness - to improve, our physical therapists will perform initial evaluation of pt's status upon ad mission and devise an individualized program for Aquatic Therapy, Neuromuscular Reeducation, and Stre ngthening Achieving independence - to improve, our physical therapists will perform initial evaluation of pt's status upon admission and devise an individualized program for Community Reintegration Activities - Occupational Therapy ADL deficits - to improve, our occupation therapists will perform initial evaluation of pt's status u johanna admission and devise an individualized program for Bathing, Bed mobility, Community Reintegration , Cooking, Dressing, Eating, Fine Motor Skills, Grooming, Homemaking, Kitchen Mobility, Laundry, Enma ent Education, Safety Awareness, Splinting - Positioning, Transfers(Toilet, Tub, Shower), and Wheel C hair Management Need for adult live in caregiver - to improve, our occupation therapists will perform initial evaluation of pt's s tatus upon admission and devise an individualized program for Caregiver Training Weakness - to improve, our occupation therapists will perform initial evaluation of pt's status upon admission and devise an individualized program for Aquatic Therapy, Balance, Endurance, UE ROM, and U E strengthening MEDICAL PLAN: - Anterior Hip Precaution No abduction No active extension No adduction across midline No external rotation No hip flexion >90 degrees No internal rotation - Diet - Liquid Texture Start Regular - Tube Feed Start N/A - Diet Type Start Regular - Posterior Hip Precaution No adduction across midline No external rotation No hip flexion >90 degrees No internal rotation No wheel chair propulsion - Weight Bearing Precaution WBAT left LE - Skin care per protocol - Diet - Solid Texture Regular - Shower shower DISCHARGE PLAN: - Estimated Length of Stay (days) 14. - Consensus on plan Discharge plan has been discussed with primary caregiver. Patient/Family is in agreement with the irasema n. Primary caregiver is in agreement with the plan. - Patient/Family Goals Return home with assistance. - Planned Living Setting Upon Discharge Home, to live alone. SIGNATURE PANEL: (TOOL MAKER APPRENTICE)
--- NOTE | 2018-07-10 17:35 | PAPE ---
PATIENT: [facility] MR# [id number] REFERRING DOCTOR Reynaldo Handley EVALUATION DATE AND TIME 07/10/2018 17:32 (GILL NET STRINGER) NAME LINH SANDS DATE OF 1935 AGE 83 PHONE SSN# [id number] GENDER female EVALUATING PHYSICIAN Dr. Rambo De La Rosa M.D. ADMISSION DIAGNOSIS: Left Hip Fracture ONSET DATE 06/29/2018 SECONDARY/COMORBID DIAGNOSES TIERED: - N/A Chronic Atrial Fibrillation Hypertension Hypothyroidism Restless Leg Syndrome ACUTE KIDNEY INJURY Anemia POST-ADMISSION FUNCTIONAL/MEDICAL STATUS: - Bladder Same accident frequency: Ind - No accidents in the past 7 days - Bowel Same accident frequency: Ind - No accidents in the past 7 days - Walking Same score based on distance walked: 3(>=150ft) STATUS CHANGE EVALUATION: No change in Functional or Medical Status is identified compared with Pre-Admission screening. PATIENT NEEDS CLOSE MEDICAL SUPERVISION BY A REHABILITATION PHYSICIAN FOR: Coordination of Treatment Team Medical and Co-Morbidity Management Wound Care Pain Management DVT Management Bowel and Bladder Management Sleep Problems PATIENT REQUIRES 24X7 REHAB NURSING FOR MEDICAL AND FUNCTIONAL MGT. OF THE FOLLOWING DEFICITS: Disease Management Medication Management Patient/Family Education Providing Safe Environment Skin Integrity Pain Management Transfers PATIENT REQUIRES INTENSIVE, COORDINATED INTERDISCIPLINARY APPROACH TO REHAB: Arranging Home Equipment/Services Discharge Planning Family Intervention/Training Fire Lookout/Case Management LIST OF IDENTIFIED AND POTENTIAL PROBLEMS: Alteration in leisure activities Bladder, Incontinence Blood Pressure, Hypertension/hypotension Issues Bowel, Incontinence Infection, Actual or Potential Mobility Impaired Pain, Alteration in Comfort Self Care Deficit Skin Integrity, Actual or Potential Urinary Tract Infection (UTI), Actual or Potential RISK FOR COMPLICATIONS - Hypertension CVA. Hypotension. VA. TIA. INTERVENTIONS - Hypertension PATIENT COULD BE AT RISK FOR COMPLICATIONS FROM ADVERSE MEDICAL CONDITIONS DUE TO HIS/HER COMORBIDITI ES AND THE RIGORS OF THE INTENSIVE REHABILLITATION PROGRAM. METHODS OR INTERVENTIONS TO AVOID COMPLIC ATIONS INCLUDE: - Deep Vein Thrombosis (DVT) Prophylaxis therapy for prevention . Sequential Compression Device (SCD). TE D Hose. - Bleeding Assess lab values and manage abnormalities. Nursing to teach precautions for anti-coagulation therapy . Wound to be assessed every shift. - Infection Clinical staff to assess and manage the signs and symptoms of infection including fever, redness, war mth, etc. - Urinary Tract Infection - Falls Patient will be evaluated for Fall Precautions and will be placed on Fall Precautions as indicated pe r protocol. - Skin Breakdown Nursing will assess skin daily using assessment tool and will place on Skin Breakdown Precautions as indicated per protocol. - Pain Clinical staff may employ non-medication methods such as massage, distraction, decrease stimulus, etc . as needed. Clinical staff will assess patient's pain level every shift per protocol to assess and e nsure pain management effectiveness. Medications will be given and the pain level re-assessed. PRELIMINARY PLAN OF CARE: - Physical Therapy Patient needs Physical Therapy for a daily minimum of 1.5 hours at least 5 out of 7 days, to improve: Mobility, Strengthening, Transfers, Stretching, ROM, Endurance, Ability to manage stairs, Gait, and Balance. - Rehabilitation Nursing Patient requires 24x7 Rehabilitation Nursing for: Pain Issues, Identifying and preventing risk factor s, Monitoring and reporting current medical conditions, Assisting with ambulation and transfer, Naomy ting with all ADL-s, Teaching patients about disease process and medications, Family teaching, Provid ing safe environment, Bowel and Bladder Issues, Skin Integrity, and Medication Management. Patient needs Fire Lookout and/or Case Management for: Discharge Planning, Arranging Home Equipmen t or Services, and Family Interventions. - Dietary and Nutrition Services Patient needs Dietary and Nutrition Services for: Adequate Nutrition, Nutritional Supplements, and Nu tritional Education. - Occupational Therapy Patient needs Occupational Therapy for a daily minimum of 1.5 hours at least 5 out of 7 days, to impr ove Activities of Daily Living, including: Eating, Grooming, Bathing, Dressing, Toileting, Toilet Tra nsfers, Community Reintegration, Higher functional activities, Adaptive Equipment, Splinting, Househo ld Tasks, and Other activities as determined. POTENTIAL FUNCTIONAL GOALS FOR PATIENT TO ACHIEVE BY DISCHARGE: - Safety Precaution Patient will remain free from falls or injury at time of discharge. - Bed Mobility Patient will perform bed mobility at 4-Maria Isabel level of assistance. - Transfers Patient will complete transfers from bed to chair at 4-Maria Isabel level of assistance. - Mobility Patient will ambulate 150 ft with 4-Maria Isabel level of assistance with RW. PATIENT REHAB POTENTIAL Expected level of measurable improvement will be of a practical value to patient's functional capacit y or adaptations to impairments Has a viable Discharge Plan Medically appropriate; condition is sufficiently stable to participate in intensive rehab program Patient is able and expected to receive 3 hours of individualized therapy daily on at least 5 of ever y 7 days Patient's prognosis for significant practical improvement within a reasonable period of time appears Good DISCHARGE PLAN: - Estimated Length of Stay (days) 14. - Consensus on plan Discharge plan has been discussed with primary caregiver. Patient/Family is in agreement with the irasema n. Primary caregiver is in agreement with the plan. - Patient/Family Goals Return home with assistance. - Planned Living Setting Upon Discharge Home, to live alone. CONCLUSION ON REHABILITATION NECESSITY: I have evaluated patient's pre-admission functional status and, comparing it to the patient's post-ad mission functional status now, I conclude that the pre-admission assessment was accurate. Patient's c ondition on admission supports the medical necessity of admission to IRF. It is safe to proceed with patient's therapy program. SIGNATURE PANEL: (GILL NET STRINGER)
[2018-07-10] MEDS: NYSTATIN PWDR 100000 UNIT/GM TOP SCH (19:30)
[2018-07-10] MEDS: MELATONIN 3 MG TABLET PO PRN (19:31)
[2018-07-10] MEDS: MAGNESIUM OXIDE 400 MG TAB PO SCH (19:31)
[2018-07-10] MEDS: GABAPENTIN 300 MG CAP PO SCH (19:31)
[2018-07-10] MEDS: PRAMIPEXOLE 0.25 MG TAB PO SCH (20:07)
--- NOTE | 2018-07-11 01:00 | FAST ---
SHIFT START DATE/TIME: 07/10/2018 19:00 (IN SERVICE EDUCATION TEACHER) SHIFT END DATE/TIME: 07/11/2018 07:00 (IN SERVICE EDUCATION TEACHER) NAME LINH SANDS DATE OF : 1935 DATE OF ADMISSION: 07/09/2018 17:51 (IN SERVICE EDUCATION TEACHER) PHONE: AGE: 83 SSN# [id number] GENDER: Female ENCOUNTER PHYSICIAN: Dr. Rambo De La Rosa M.D. ADMISSION DIAGNOSIS: - Orthopaedic Disorders 08 - Unilateral Hip Fracture (08.11) Left Hip Fracture. EATING: Activity did not occur on this shift EATING - SCORE: 0-UNK GROOMING: Activity did not occur on this shift GROOMING - SCORE: 0-UNK BATHING: Activity did not occur on this shift BATHING - SCORE: 0-UNK DRESSING - UPPER BODY: Patient is not dressing in public clothing ARTICLES SCORE Total number of steps: 0 DRESSING - UPPER BODY - SCORE: 0-UNK DRESSING - LOWER BODY: Patient is not dressing in public clothing ARTICLES SCORE Total number of steps: 0 DRESSING - LOWER BODY - SCORE: 0-UNK TOILETING: Activity did not occur on this shift TOILETING - SCORE: 0-UNK BLADDER MANAGEMENT: [place] removes incontinent device (Depends, pull ups, etc.); cleans the patient after accident / inco ntinent episode; and, applies new incontinent device. BLADDER MANAGEMENT - SCORE: 1-DEP BOWEL MANAGEMENT: Activity did not occur on this shift BOWEL MANAGEMENT - SCORE: 7-IND TRANSFERS: BED, CHAIR, WHEELCHAIR: Patient requires more than one helper and/or the use of a mechanical lift is utilized TRANSFERS: BED, CHAIR, WHEELCHAIR - SCORE: 1-DEP TRANSFERS: TOILET: Activity did not occur on this shift TRANSFERS: TOILET - SCORE: 0-UNK TRANSFERS: SHOWER: Activity did not occur on this shift TRANSFERS: SHOWER - SCORE: 0-UNK TRANSFERS: TUB: Activity did not occur on this shift TRANSFERS: TUB - SCORE: 0-UNK LOCOMOTION: WALK: Activity did not occur on this shift LOCOMOTION: WALK - SCORE: 0-UNK LOCOMOTION: WHEELCHAIR: Activity did not occur on this shift LOCOMOTION: WHEELCHAIR - SCORE: 0-UNK COMPREHENSION: COMPREHENSION: TYPE: Both COMPREHENSION - STEP 1: Does the patient require help from a person or device, or need extra time to understand complex and a bstract ideas (such as current events, finances, discharge planning, medical issues, relationships, e tc)? No. COMPREHENSION - STEP 2: Does the patient need extra time, require an assistive device (such as glasses for visual comprehensi on or a hearing aid for auditory comprehension) or does s/he have mild difficulty understanding compl ex and abstract information? Yes. COMPREHENSION - SCORE: 6-SUSANA EXPRESSION EXPRESSION: TYPE: Both EXPRESSION - STEP 1: Does the patient require help from a person or device, or need extra time expressing complex and abst ract ideas (such as current events, finances, discharge planning, medical issues, relationships, etc) ? No. EXPRESSION - STEP 2: Does the patient need extra time, require an assistive device (such as augmentive communication syste m or a communication board), OR does s/he have mild difficulty expressing complex and abstract ideas (including mild dysarthria or mild word-find problems)? No. EXPRESSION - SCORE: 7-IND SOCIAL INTERACTION: SOCIAL INTERACTION - STEP 1: Does the patient require a helper to interact with others in social and therapeutic situations? No. SOCIAL INTERACTION - STEP 2: Does the patient need extra time in social situations, OR does s/he interact with staff, other patien ts, and family members ONLY in structured environments, OR does s/he require medication for social in teraction? Yes, patient requires medication for social interaction SOCIAL INTERACTION - SCORE: 6-SUSANA PROBLEM SOLVING: PROBLEM SOLVING - STEP 1: Does the patient need help from a person or device, or need extra time to solve complex problems such as managing a checking account or confronting interpersonal problems? No. PROBLEM SOLVING - STEP 2: Does the patient require extra time to make decisions or solve problems, OR does s/he have slight dif ficulty reading, initiating, or self-correcting in unfamiliar situations? Yes, patient needs extra ti me. PROBLEM SOLVING - SCORE: 6-SUSANA MEMORY: MEMORY - STEP 1: Does the patient need help from a person or device, or need extra time to remember frequently encount ered people, daily routines, and executing requests? No. MEMORY - STEP 2: Does the patient have slight difficulty recognizing frequently encountered people, daily routines, or executing requests without the need for repetition or using self-initiated or environmental cues to remember? No. MEMORY - SCORE: 7-IND SIGNATURE PANEL: The following modified sections: Eating - Score, Grooming - Score, Bathing - Score, Dressing - Upper Body - Score, Dressing - Lower Body - Score, Toileting - Score, Bladder Management - Score, Bowel Man agement - Score, Transfers: Bed, Chair, Wheelchair - Score, Transfers: Toilet - Score, Transfers: Rubi wer - Score, Transfers: Tub - Score, Locomotion: Walk - Score, Locomotion: Wheelchair - Score, Compre hension - Score, Expression - Score, Social Interaction - Score, Problem Solving - Score, Memory - Sc ore were [electronically] signed by Jody Lee CNA on MonJul 11 2018 00:59:13 T-0600 ([facility])
[2018-07-11] MEDS: TRAMADOL HCL 50 MG TAB PO PRN ×4 (05:05→18:08)
[2018-07-11] MEDS: PANTOPRAZOLE 40MG TABLET PO SCH (06:23)
[2018-07-11] MEDS: LEVOTHYROXINE SOD 0.075 MG TAB PO SCH (06:23)
[2018-07-11] MEDS ORDERED: BACLOFEN 10 MG TAB PO SCH (08:00)
[2018-07-11] MEDS: NYSTATIN PWDR 100000 UNIT/GM TOP SCH ×2 (08:00→20:09)
[2018-07-11] MEDS: LIDOCAINE 5% PATCH TOP SCH (08:24)
[2018-07-11] MEDS: VENLAFAXINE HCL XR 75 MG CAP PO SCH (08:25)
[2018-07-11] MEDS: GABAPENTIN 300 MG CAP PO SCH ×2 (08:25→20:10)
[2018-07-11] MEDS: DULOXETINE 20 MG CAP PO SCH (08:25)
[2018-07-11] MEDS: MAGNESIUM OXIDE 400 MG TAB PO SCH ×2 (08:25→20:10)
[2018-07-11] MEDS: FE SULF/FA/VIT B COMP & C TAB PO SCH (08:25)
[2018-07-11] MEDS: LISINOPRIL 20 MG TAB PO SCH (08:25)
[2018-07-11] MEDS: RIVAROXABAN 15 MG TABLET PO SCH (08:26)
[2018-07-11] MEDS: hydroCHLOROthiazide 25 MG TAB PO SCH (08:26)
[2018-07-11] MEDS: FERROUS SULFATE 325 MG TAB PO SCH (08:26)
[2018-07-11] MEDS: AMLODIPINE 5 MG TAB PO SCH (08:27)
[2018-07-11] MEDS: PROMOD 30 ML DOSE PO SCH ×2 (08:27→20:10)
[2018-07-11] MEDS ORDERED: MORPHINE *EXTENDED RELEASE* 15 MG TAB PO ONE (09:45)
[2018-07-11] MEDS ORDERED: PROMETHAZINE 25 MG TABLET PO ONE (09:45)
--- NOTE | 2018-07-11 12:12 | FAST ---
ENCOUNTER DATE AND TIME: 07/10/2018 08:00 (BUFFING MACHINE OPERATOR) NAME LINH SANDS DATE OF : 1935 DATE OF ADMISSION: 07/09/2018 17:51 (BUFFING MACHINE OPERATOR) PHONE: AGE: 83 SSN# [id number] GENDER: Female ENCOUNTER PHYSICIAN: Dr. Rambo De La Rosa M.D. ADMISSION DIAGNOSIS: - Orthopaedic Disorders 08 - Unilateral Hip Fracture (08.11) Left Hip Fracture. EATING: EATING - STEP 1: Does the patient require the assistance of a person or device, or need extra time when eating? No. EATING - SCORE: 7-IND GROOMING: Comb/brush hair Oral care Wash, rinse, and dry face Wash, rinse, and dry hands GROOMING - STEP 1: Does the patient require the assistance of a person or device, or need extra time when grooming? No. GROOMING - SCORE: 7-IND BATHING: Abdomen Buttocks Chest Left arm Left lower leg and foot Left upper leg Perineal area Right arm Right lower leg and foot Right upper leg BATHING - STEP 1: Does the patient require the assistance of a person or device, or need extra time when bathing? Yes. BATHING - STEP 2: Does the patient require the assistance of a helper? Yes. BATHING - STEP 3: How much assistance does the patient require from the helper? More than just incidental help BATHING - STEP 4: What percent of the body parts did the patient bathe WITHOUT the helper? Half or more of the body par ts BATHING - SCORE: 3-MOD DRESSING - UPPER BODY: T-shirt/pullover shirt (four steps) ARTICLES SCORE Total number of steps: 4 DRESSING - UPPER BODY - STEP 1: Does the patient require help from a person or device, or need extra time when dressing above the [address]? Yes. DRESSING - UPPER BODY - STEP 2: Does the patient require the assistance of a helper? Yes. DRESSING - UPPER BODY - STEP 3: Does the helper touch the patient while dressing? Yes. DRESSING - UPPER BODY - STEP 4: How many of the total steps does the patient complete on his/her own? 3 DRESSING - UPPER BODY - SCORE: 4-MIN DRESSING - LOWER BODY: Elastic waist pants (three steps) Sock - Left foot (one step) Sock - Right foot (one step) Underwear (three steps) ARTICLES SCORE Total number of steps: 8 DRESSING - LOWER BODY - STEP 1: Does the patient require help from a person or device, or need extra time when dressing below the [address]? Yes. DRESSING - LOWER BODY - STEP 2: Does the patient require the assistance of a helper? Yes. DRESSING - LOWER BODY - STEP 3: Does the helper touch the patient while dressing? Yes. DRESSING - LOWER BODY - STEP 4: How many of the total steps does the patient complete on his/her own? 0 DRESSING - LOWER BODY - STEP 5: Does patient require total assistance for dressing below the waist such as the helper holding clothin g and performing basically all the activities? Yes. DRESSING - LOWER BODY - SCORE: 1-DEP TOILETING: TOILETING - STEP 1: Does the patient require the assistance of a person or device, or need extra time with toileting? Yes . TOILETING - STEP 2: Does the patient require the assistance of a helper? Yes. TOILETING - STEP 3: How much assistance does the patient require from the helper? Hands-on assistance from the helper TOILETING - STEP 4: Of the 3 tasks: 1) Adjusting clothing prior to use, 2) Cleansing of perineal area, 3) Adjusting clot penny after use; How many tasks does the patient perform WITHOUT assistance of the helper? One task TOILETING - SCORE: 2-MAX BLADDER MANAGEMENT: Activity did not occur on this shift BLADDER MANAGEMENT - SCORE: 7-IND BOWEL MANAGEMENT: Activity did not occur on this shift BOWEL MANAGEMENT - SCORE: 7-IND TRANSFERS: BED, CHAIR, WHEELCHAIR: Activity did not occur on this shift TRANSFERS: BED, CHAIR, WHEELCHAIR - SCORE: 0-UNK TRANSFERS: TOILET: TRANSFERS: TOILET - STEP 1: Does the patient require the assistance of a person or device, or need extra time with toilet transfe rs? Yes. TRANSFERS: TOILET - STEP 2: Does the patient require the assistance of a helper? Yes. TRANSFERS: TOILET - STEP 3: How much assistance does the patient require from the helper? Patient performs less than half of the transferring tasks TRANSFERS: TOILET - STEP 4: Does the patient require total assistance for the toilet transfer such as the helper doing basically all the lifting? No. TRANSFERS: TOILET - SCORE: 2-MAX TRANSFERS: SHOWER: TRANSFERS: SHOWER - STEP 1: Does the patient require the assistance of a person or device, or need extra time with shower transfe rs? Yes. TRANSFERS: SHOWER - STEP 2: Does the patient require the assistance of a helper? Yes. TRANSFERS: SHOWER - STEP 3: How much assistance does the patient require from the helper? More than incidental help TRANSFERS: SHOWER - STEP 4: How much more help does the patient require from the helper? Lifting the patient up AND down from the wheelchair onto the shower chair TRANSFERS: SHOWER - SCORE: 2-MAX TRANSFERS: TUB: Activity did not occur on this shift TRANSFERS: TUB - SCORE: 0-UNK LOCOMOTION: WALK: Activity did not occur on this shift LOCOMOTION: WALK - SCORE: 0-UNK LOCOMOTION: WHEELCHAIR: Activity did not occur on this shift LOCOMOTION: WHEELCHAIR - SCORE: 0-UNK LOCOMOTION: STAIRS: Activity did not occur on this shift LOCOMOTION: STAIRS - SCORE: 0-UNK COMPREHENSION: COMPREHENSION: TYPE: Both COMPREHENSION - STEP 1: Does the patient require help from a person or device, or need extra time to understand complex and a bstract ideas (such as current events, finances, discharge planning, medical issues, relationships, e tc)? No. COMPREHENSION - STEP 2: Does the patient need extra time, require an assistive device (such as glasses for visual comprehensi on or a hearing aid for auditory comprehension) or does s/he have mild difficulty understanding compl ex and abstract information? Yes. COMPREHENSION - SCORE: 6-SUSANA EXPRESSION EXPRESSION: TYPE: Both EXPRESSION - STEP 1: Does the patient require help from a person or device, or need extra time expressing complex and abst ract ideas (such as current events, finances, discharge planning, medical issues, relationships, etc) ? No. EXPRESSION - STEP 2: Does the patient need extra time, require an assistive device (such as augmentive communication syste m or a communication board), OR does s/he have mild difficulty expressing complex and abstract ideas (including mild dysarthria or mild word-find problems)? Yes. EXPRESSION - SCORE: 6-SUSANA SOCIAL INTERACTION: SOCIAL INTERACTION - STEP 1: Does the patient require a helper to interact with others in social and therapeutic situations? No. SOCIAL INTERACTION - STEP 2: Does the patient need extra time in social situations, OR does s/he interact with staff, other patien ts, and family members ONLY in structured environments, OR does s/he require medication for social in teraction? Yes, patient needs extra time SOCIAL INTERACTION - SCORE: 6-SUSANA PROBLEM SOLVING: PROBLEM SOLVING - STEP 1: Does the patient need help from a person or device, or need extra time to solve complex problems such as managing a checking account or confronting interpersonal problems? No. PROBLEM SOLVING - STEP 2: Does the patient require extra time to make decisions or solve problems, OR does s/he have slight dif ficulty reading, initiating, or self-correcting in unfamiliar situations? Yes, patient needs extra ti me. PROBLEM SOLVING - SCORE: 6-SUSANA MEMORY: MEMORY - STEP 1: Does the patient need help from a person or device, or need extra time to remember frequently encount ered people, daily routines, and executing requests? No. MEMORY - STEP 2: Does the patient have slight difficulty recognizing frequently encountered people, daily routines, or executing requests without the need for repetition or using self-initiated or environmental cues to remember? Yes. MEMORY - SCORE: 6-SUSANA SIGNATURE PANEL: The following modified sections: Eating - Score, Grooming - Score, Bathing - Score, Dressing - Upper Body - Score, Dressing - Lower Body - Score, Toileting - Score, Transfers: Bed, Chair, Wheelchair - S core, Transfers: Toilet - Score, Transfers: Tub - Score, Transfers: Shower - Score, Comprehension - S core, Expression - Score, Social Interaction - Score, Problem Solving - Score, Memory - Score were [e lectronically] signed by Susanna Carlson OT on MonJul 11 2018 12:11:22 T-0600 (Central Standard T meche)
[2018-07-11] MEDS ORDERED: MORPHINE *EXTENDED RELEASE* 15 MG TAB PO PRN (15:05)
--- NOTE | 2018-07-11 15:24 | FAST ---
SHIFT START DATE/TIME: 07/11/2018 07:00 (SMT TECHNICIAN) SHIFT END DATE/TIME: 07/11/2018 19:00 (SMT TECHNICIAN) NAME LINH SANDS DATE OF : 1935 DATE OF ADMISSION: 07/09/2018 17:51 (SMT TECHNICIAN) PHONE: AGE: 83 SSN# [id number] GENDER: Female ENCOUNTER PHYSICIAN: Dr. Rambo De La Rosa M.D. ADMISSION DIAGNOSIS: - Orthopaedic Disorders 08 - Unilateral Hip Fracture (08.11) Left Hip Fracture. EATING: EATING - STEP 1: Does the patient require the assistance of a person or device, or need extra time when eating? Yes. EATING - STEP 2: Does the patient require the assistance of a helper? No, patient only requires an assistive device, O R s/he takes more than reasonable time to eat, OR there is a safety concern, OR s/he requires modifie d food consistency EATING - SCORE: 6-SUSANA GROOMING: Comb/brush hair Oral care Wash, rinse, and dry face Wash, rinse, and dry hands GROOMING - STEP 1: Does the patient require the assistance of a person or device, or need extra time when grooming? Yes. GROOMING - STEP 2: Does the patient require the assistance of a helper? No. The patient only requires an assistive devic e, OR takes more than reasonable time to groom, OR there is a concern for safety as the patient groom s GROOMING - SCORE: 6-SUSANA BATHING: Activity did not occur on this shift BATHING - SCORE: 0-UNK DRESSING - UPPER BODY: Activity did not occur on this shift ARTICLES SCORE Total number of steps: 0 DRESSING - UPPER BODY - SCORE: 0-UNK DRESSING - LOWER BODY: Activity did not occur on this shift ARTICLES SCORE Total number of steps: 0 DRESSING - LOWER BODY - SCORE: 0-UNK TOILETING: Activity did not occur on this shift TOILETING - SCORE: 0-UNK TOILETING - COMMENTS: Pt incontient BLADDER MANAGEMENT: Manning removes incontinent device (Depends, pull ups, etc.); cleans the patient after accident / inco ntinent episode; and, applies new incontinent device. BLADDER MANAGEMENT - SCORE: 1-DEP BLADDER MANAGEMENT - FREQUENCY OF ACCIDENTS: BLADDER MANAGEMENT(FA) - STEP 1: How many accidents has the patient had during the current shift? 4 BOWEL MANAGEMENT: Activity did not occur on this shift BOWEL MANAGEMENT - SCORE: 7-IND BOWEL MANAGEMENT - FREQUENCY OF ACCIDENTS: BOWEL MANAGEMENT(FA) - STEP 1: How many accidents has the patient had during the current shift? 0 TRANSFERS: BED, CHAIR, WHEELCHAIR: TRANSFERS: BED, CHAIR, WHEELCHAIR - STEP 1: Does the patient require assistance of a person or device, or need extra time with bed, chair, or whe elchair transfers? Yes. TRANSFERS: BED, CHAIR, WHEELCHAIR - STEP 2: Does the patient require the assistance of a helper? Yes. TRANSFERS: BED, CHAIR, WHEELCHAIR - STEP 3: How much assistance does the patient require from the helper? Steadying/guiding assistance TRANSFERS: BED, CHAIR, WHEELCHAIR - SCORE: 4-MIN TRANSFERS: TOILET: Activity did not occur on this shift TRANSFERS: TOILET - SCORE: 0-UNK TRANSFERS: SHOWER: Activity did not occur on this shift TRANSFERS: SHOWER - SCORE: 0-UNK TRANSFERS: TUB: Activity did not occur on this shift TRANSFERS: TUB - SCORE: 0-UNK LOCOMOTION: WALK: Activity did not occur on this shift LOCOMOTION: WALK - SCORE: 0-UNK LOCOMOTION: WHEELCHAIR: LOCOMOTION: WHEELCHAIR - STEP 1: Does the patient need help to go 150 feet in a wheelchair? Yes. LOCOMOTION: WHEELCHAIR - STEP 2: How much assistance does the patient need from the helper? Only incidental help such as around corner s or over thresholds LOCOMOTION: WHEELCHAIR - SCORE: 4-MIN COMPREHENSION: COMPREHENSION: TYPE: Both COMPREHENSION - STEP 1: Does the patient require help from a person or device, or need extra time to understand complex and a bstract ideas (such as current events, finances, discharge planning, medical issues, relationships, e tc)? No. COMPREHENSION - STEP 2: Does the patient need extra time, require an assistive device (such as glasses for visual comprehensi on or a hearing aid for auditory comprehension) or does s/he have mild difficulty understanding compl ex and abstract information? Yes. COMPREHENSION - SCORE: 6-SUSANA EXPRESSION EXPRESSION: TYPE: Both EXPRESSION - STEP 1: Does the patient require help from a person or device, or need extra time expressing complex and abst ract ideas (such as current events, finances, discharge planning, medical issues, relationships, etc) ? No. EXPRESSION - STEP 2: Does the patient need extra time, require an assistive device (such as augmentive communication syste m or a communication board), OR does s/he have mild difficulty expressing complex and abstract ideas (including mild dysarthria or mild word-find problems)? Yes. EXPRESSION - SCORE: 6-SUSANA SOCIAL INTERACTION: SOCIAL INTERACTION - STEP 1: Does the patient require a helper to interact with others in social and therapeutic situations? No. SOCIAL INTERACTION - STEP 2: Does the patient need extra time in social situations, OR does s/he interact with staff, other patien ts, and family members ONLY in structured environments, OR does s/he require medication for social in teraction? Yes, patient needs extra time SOCIAL INTERACTION - SCORE: 6-SUSANA PROBLEM SOLVING: PROBLEM SOLVING - STEP 1: Does the patient need help from a person or device, or need extra time to solve complex problems such as managing a checking account or confronting interpersonal problems? No. PROBLEM SOLVING - STEP 2: Does the patient require extra time to make decisions or solve problems, OR does s/he have slight dif ficulty reading, initiating, or self-correcting in unfamiliar situations? Yes, patient needs extra ti me. PROBLEM SOLVING - SCORE: 6-SUSANA MEMORY: MEMORY - STEP 1: Does the patient need help from a person or device, or need extra time to remember frequently encount ered people, daily routines, and executing requests? No. MEMORY - STEP 2: Does the patient have slight difficulty recognizing frequently encountered people, daily routines, or executing requests without the need for repetition or using self-initiated or environmental cues to remember? Yes. MEMORY - SCORE: 6-SUSANA SIGNATURE PANEL: The following modified sections: Eating - Score, Grooming - Score, Bathing - Score, Dressing - Upper Body - Score, Dressing - Lower Body - Score, Toileting - Score, Toileting - Comments:, Bladder Manage ment - Score, Bowel Management - Score, Transfers: Bed, Chair, Wheelchair - Score, Transfers: Toilet - Score, Transfers: Shower - Score, Transfers: Tub - Score, Locomotion: Walk - Score, Locomotion: Whe elchair - Score, Comprehension - Score, Expression - Score, Social Interaction - Score, Problem Solvi ng - Score, Memory - Score were [electronically] signed by Lillian Colby C.N.A. on MonJul 11 2018 15 :22:53 T-0600 (Central Standard Time)
--- NOTE | 2018-07-11 15:31 | FAST ---
ENCOUNTER DATE AND TIME: 07/11/2018 08:00 (OCCUPATIONAL THERAPY TECHNICIAN) NAME LINH SANDS DATE OF : 1935 DATE OF ADMISSION: 07/09/2018 17:51 (OCCUPATIONAL THERAPY TECHNICIAN) PHONE: AGE: 83 SSN# [id number] GENDER: Female ENCOUNTER PHYSICIAN: Dr. Rambo De La Rosa M.D. ADMISSION DIAGNOSIS: - Orthopaedic Disorders 08 - Unilateral Hip Fracture (08.11) Left Hip Fracture. EATING: Activity did not occur on this shift EATING - SCORE: 0-UNK GROOMING: Activity did not occur on this shift GROOMING - SCORE: 0-UNK BATHING: Activity did not occur on this shift BATHING - SCORE: 0-UNK DRESSING - UPPER BODY: Activity did not occur on this shift Patient is not dressing in public clothing ARTICLES SCORE Total number of steps: 0 DRESSING - UPPER BODY - SCORE: 0-UNK DRESSING - LOWER BODY: Activity did not occur on this shift Patient is not dressing in public clothing ARTICLES SCORE Total number of steps: 0 DRESSING - LOWER BODY - SCORE: 0-UNK TOILETING: Activity did not occur on this shift TOILETING - SCORE: 0-UNK BLADDER MANAGEMENT: Activity did not occur on this shift BLADDER MANAGEMENT - SCORE: 7-IND BOWEL MANAGEMENT: Activity did not occur on this shift BOWEL MANAGEMENT - SCORE: 7-IND TRANSFERS: BED, CHAIR, WHEELCHAIR: TRANSFERS: BED, CHAIR, WHEELCHAIR - STEP 1: Does the patient require assistance of a person or device, or need extra time with bed, chair, or whe elchair transfers? Yes. TRANSFERS: BED, CHAIR, WHEELCHAIR - STEP 2: Does the patient require the assistance of a helper? Yes. TRANSFERS: BED, CHAIR, WHEELCHAIR - STEP 3: How much assistance does the patient require from the helper? Steadying/guiding assistance TRANSFERS: BED, CHAIR, WHEELCHAIR - SCORE: 4-MIN TRANSFERS: TOILET: Activity did not occur on this shift TRANSFERS: TOILET - SCORE: 0-UNK TRANSFERS: SHOWER: Activity did not occur on this shift TRANSFERS: SHOWER - SCORE: 0-UNK TRANSFERS: TUB: Activity did not occur on this shift TRANSFERS: TUB - SCORE: 0-UNK LOCOMOTION: WALK: LOCOMOTION: WALK - STEP 1: Does the patient need help from a person or device, or need extra time to walk 150 feet? Yes. LOCOMOTION: WALK - STEP 2: How much assistance does the patient require to walk a minimum of 150 feet? Patient walks less than 1 50 feet - but more than 50 feet - with the assistance of only one helper LOCOMOTION: WALK - SCORE: 2-MAX LOCOMOTION: WHEELCHAIR: LOCOMOTION: WHEELCHAIR - STEP 1: Does the patient need help to go 150 feet in a wheelchair? Yes. LOCOMOTION: WHEELCHAIR - STEP 2: How much assistance does the patient need from the helper? Only supervision, cuing, or coaxing LOCOMOTION: WHEELCHAIR - SCORE: 5-SUP LOCOMOTION: STAIRS: Activity did not occur on this shift LOCOMOTION: STAIRS - SCORE: 0-UNK COMPREHENSION: COMPREHENSION - SCORE: 0-UNK EXPRESSION EXPRESSION - SCORE: 0-UNK SOCIAL INTERACTION: SOCIAL INTERACTION - SCORE: 0-UNK PROBLEM SOLVING: PROBLEM SOLVING - SCORE: 0-UNK MEMORY: MEMORY - SCORE: 0-UNK SIGNATURE PANEL: The following modified sections: Transfers: Bed, Chair, Wheelchair - Score, Transfers: Toilet - Score , Locomotion: Walk - Score, Locomotion: Wheelchair - Score, Locomotion: Stairs - Score were [electron gabo] signed by Roberto Sumner PTA on MonJul 11 2018 15:30:03 GMT-0600 (Central Standard Time)
--- NOTE | 2018-07-11 16:21 | RAD REPORT ---
EXAM DESCRIPTION: RAD - Hip Left 2 View - 07/11/2018 3:52 pm CLINICAL HISTORY: Left hip pain FINDINGS: Compression screw and intramedullary aleksandra affix a proximal left femoral fracture. The medial aspect of the femoral neck lies 8 millimeters medial to the femoral shaft. Presumably this is a chronic finding for the patient. However, comparison with prior x-rays would be helpful for fur ther evaluation. The lesser trochanter is avulsed inferiorly medially No dislocation seen
[2018-07-11] MEDS: SOLIFENACIN SUCCIN 5 MG TAB PO SCH (17:07)
--- NOTE | 2018-07-11 17:31 | R.PN ---
ENCOUNTER DATE AND TIME: 07/11/2018 17:26 (BUTT WELDER) NAME LINH SANDS DATE OF : 1935 DATE OF ADMISSION: 07/09/2018 17:51 (BUTT WELDER) Left Hip FractureCHIEF COMPLAINT: Left hip fracture SUBJECTIVE: Pt denied any depression. Pt denied any Shortness of Breath. She had moderate pain in the left hip at rest which was alleviated by MS contin with phenergan in com bination with gabapentin and baclofen. Labs reviewed. Hgb 11.0, prealbumin 15.4. Ambulated 110' with standby assistance using a rolling walker. Self-propelled wheelchair 200' with st andby assistance. VITAL SIGNS Temperature: 98 F SBP/DBP: 124/55 Pulse: 69 Resp: 18 MEDICATION ALLERGIES: Codeine ENVIRONMENTAL ALLERGIES: None Known - Substance Allergies None Known - Other Allergies None Known NURSING: - Shower allowing shower - Skin care per protocol PRECAUTIONS: - Posterior Hip Precaution No adduction across midline No external rotation No hip flexion >90 degrees No internal rotation No wheel chair propulsion - Weight Bearing Precaution WBAT left LE ACTIVITIES OOB only with supervision THERAPIES: - Occupational Therapy Evaluate and Treat. - Physical Therapy Evaluate and Treat. PHYSICAL EXAM - Gen Alert and awake Lying in bed No apparent distress Oriented to: person, time, and place - Skin No breakdown No abnormalities - Eyes No abnormalities - ENMT No abnormalities - Neck No abnormalities - CVS RRR - Chest No abnormalities - Resp Clear to auscultation - Abd +bowel sounds - GI Soft Deferred - No abnormalities - Ext Left hip surgical site has good hemostasis. - MSK 4+/5 weakness in left lower extremity - Neuro 4/5 strength left lower extremity. - Psych No abnormalities ASSESSMENT: Pt. is a 83 yo Right-handed white female.On 06/29/2018 she was admitted to [facility] with francesca gnosis Left Hip Fracture.Her impairment category is Orthopaedic Disorders 08 - Unilateral Hip Fractu re (08.11).Pre-morbidly, Pt. was independent/mod-I in Self-Care, Sphincter Control, Transfers Control , Communication, Social Cognition, and Locomotion; and she had good Sphincter Control.Currently, she has deficits of Self-Care, Transfers Control, Endurance, Balance, Safety Awareness, and Locomotion.Pt . is now referred to [facility] for acute in-patient rehabilitation in order t o maximize patient's functional independence in activities of daily living, strength, ROM, and mobili ty.- Rehab Goal Patient has realistic goal of being discharged at assistance level 6-Radha to reside at Home with Fam wilmer/Relatives. MDM/PLAN: - Physical Therapy Decreased range of motion - to improve, our physical therapists will perform initial evaluation of p t's status upon admission and devise an individualized program for increasing patient's Range of Gianni on. Gait dysfunction - to improve, our physical therapists will perform initial evaluation of pt's statu s upon admission and devise an individualized program for Gait Training, and Wheel Chair mobility Inability to transfer - to improve, our physical therapists will perform initial evaluation of pt's status upon admission and devise an individualized program for Bed mobility Need for home safety evaluation - to improve, our physical therapists will perform initial evaluatio n of pt's status upon admission and devise an individualized program for Home Evaluation Need in caregiver upon discharge - to improve, our physical therapists will perform initial evaluati on of pt's status upon admission and devise an individualized program for Caregiver Training New precaution - to improve, our physical therapists will perform initial evaluation of pt's status upon admission and devise an individualized program for Patient precaution education Poor balance - to improve, our physical therapists will perform initial evaluation of pt's status up on admission and devise an individualized program for Balance Training Poor endurance - to improve, our physical therapists will perform initial evaluation of pt's status upon admission and devise an individualized program for Endurance Training Weakness - to improve, our physical therapists will perform initial evaluation of pt's status upon a dmission and devise an individualized program for Aquatic Therapy, Neuromuscular Reeducation, and Str engthening Achieving independence - to improve, our physical therapists will perform initial evaluation of pt's status upon admission and devise an individualized program for Community Reintegration Activities - Occupational Therapy ADL deficits - to improve, our occupation therapists will perform initial evaluation of pt's status upon admission and devise an individualized program for Bathing, Bed mobility, Community Reintegratio n, Cooking, Dressing, Eating, Fine Motor Skills, Grooming, Homemaking, Kitchen Mobility, Laundry, Pat ient Education, Safety Awareness, Splinting - Positioning, Transfers(Toilet, Tub, Shower), and Wheel Chair Management Need for hospice care sales consultant - to improve, our occupation therapists will perform initial evaluation of pt's status upon admission and devise an individualized program for Caregiver Training Weakness - to improve, our occupation therapists will perform initial evaluation of pt's status upon admission and devise an individualized program for Aquatic Therapy, Balance, Endurance, UE ROM, and UE strengthening - Anterior Hip Precaution No abduction No active extension No adduction across midline No external rotation No hip flexion >90 degrees No internal rotation - Diet - Liquid Texture Continue Regular - Tube Feed Continue N/A - Diet Type Continue Regular - Posterior Hip Precaution No adduction across midline No external rotation No hip flexion >90 degrees No internal rotation No wheel chair propulsion - Weight Bearing Precaution WBAT left LE - Skin care per protocol - Diet - Solid Texture Continue Regular - Shower allowing shower FUNCTIONAL STATUS: UPDATED AT WEEKLY TEAM CONFERENCE - Bladder Same accident frequency: 7-Ind - No accidents in the past 7 days - Bowel Same accident frequency: 7-Ind - No accidents in the past 7 days - Walking Same score based on distance walked: 3(>=150ft) FUNCTIONAL STATUS: - Self-Care A. Eating sup B. Grooming sup C. Bathing modA D. Dressing - Upper Maria Isabel E. Dressing - Lower maxA F. Toileting modA - Sphincter Control G: Bladder control Ind H: Bowel control Ind - Transfers Control I. Bed/Chair/Wheelchair Maria Isabel J. Toilet Maria Isabel K. Tub/Shower modA - Locomotion L. Walk/Wheelchair (B) Maria Isabel M. Stairs ADNO - Communication N. Comprehension (B) Radha O. Expression (B) Radha - Social Cognition P. Social Interaction Radha Q. Problem Solving Radha R. Memory Radha - Endurance Fair - Balance Fair - Safety Awareness Fair CURRENT FUNC. DEFICITS: Self-Care, Transfers Control, Endurance, Balance, Safety Awareness, and Locomotion SIGNATURE PANEL: (BUTT WELDER)
[2018-07-11] MEDS: BACLOFEN 10 MG TAB PO SCH (20:11)
[2018-07-11] MEDS: PRAMIPEXOLE 0.25 MG TAB PO SCH (20:13)
[2018-07-11] MEDS: MELATONIN 3 MG TABLET PO PRN (20:45)
--- NOTE | 2018-07-12 00:53 | FAST ---
SHIFT START DATE/TIME: 07/11/2018 19:00 (PATTERNMAKER METAL BENCH) SHIFT END DATE/TIME: 07/12/2018 07:00 (PATTERNMAKER METAL BENCH) NAME LINH SANDS DATE OF : 1935 DATE OF ADMISSION: 07/09/2018 17:51 (PATTERNMAKER METAL BENCH) PHONE: AGE: 83 SSN# [id number] GENDER: Female ENCOUNTER PHYSICIAN: Dr. Rambo De La Rosa M.D. ADMISSION DIAGNOSIS: - Orthopaedic Disorders 08 - Unilateral Hip Fracture (08.11) Left Hip Fracture. EATING: Activity did not occur on this shift EATING - SCORE: 0-UNK GROOMING: Wash, rinse, and dry hands GROOMING - STEP 1: Does the patient require the assistance of a person or device, or need extra time when grooming? Yes. GROOMING - STEP 2: Does the patient require the assistance of a helper? Yes. GROOMING - STEP 3: How much assistance does the patient require from the helper? Only prior equipment preparation/set up from the helper GROOMING - SCORE: 5-SUP BATHING: Activity did not occur on this shift BATHING - SCORE: 0-UNK DRESSING - UPPER BODY: Patient is not dressing in public clothing ARTICLES SCORE Total number of steps: 0 DRESSING - UPPER BODY - SCORE: 0-UNK DRESSING - LOWER BODY: Patient is not dressing in public clothing ARTICLES SCORE Total number of steps: 0 DRESSING - LOWER BODY - SCORE: 0-UNK TOILETING: TOILETING - STEP 1: Does the patient require the assistance of a person or device, or need extra time with toileting? Yes . TOILETING - STEP 2: Does the patient require the assistance of a helper? Yes. TOILETING - STEP 3: How much assistance does the patient require from the helper? Hands-on assistance from the helper TOILETING - STEP 4: Of the 3 tasks: 1) Adjusting clothing prior to use, 2) Cleansing of perineal area, 3) Adjusting clot penny after use; How many tasks does the patient perform WITHOUT assistance of the helper? No tasks; h danielle performs all three tasks TOILETING - SCORE: 1-DEP BLADDER MANAGEMENT: [place] removes incontinent device (Depends, pull ups, etc.); cleans the patient after accident / inco ntinent episode; and, applies new incontinent device. BLADDER MANAGEMENT - SCORE: 1-DEP BLADDER MANAGEMENT - FREQUENCY OF ACCIDENTS: BLADDER MANAGEMENT(FA) - STEP 1: How many accidents has the patient had during the current shift? 1 BOWEL MANAGEMENT: Activity did not occur on this shift BOWEL MANAGEMENT - SCORE: 7-IND TRANSFERS: BED, CHAIR, WHEELCHAIR: TRANSFERS: BED, CHAIR, WHEELCHAIR - STEP 1: Does the patient require assistance of a person or device, or need extra time with bed, chair, or whe elchair transfers? Yes. TRANSFERS: BED, CHAIR, WHEELCHAIR - STEP 2: Does the patient require the assistance of a helper? Yes. TRANSFERS: BED, CHAIR, WHEELCHAIR - STEP 3: How much assistance does the patient require from the helper? Lifting of the patient TRANSFERS: BED, CHAIR, WHEELCHAIR - STEP 4: Does the helper lift the patient ONLY up? ONLY down? Up AND Down? ONLY up. TRANSFERS: BED, CHAIR, WHEELCHAIR - SCORE: 3-MOD TRANSFERS: TOILET: TRANSFERS: TOILET - STEP 1: Does the patient require the assistance of a person or device, or need extra time with toilet transfe rs? Yes. TRANSFERS: TOILET - STEP 2: Does the patient require the assistance of a helper? Yes. TRANSFERS: TOILET - STEP 3: How much assistance does the patient require from the helper? Patient performs half or more of the tr ansferring tasks TRANSFERS: TOILET - STEP 4: Does the patient need only incidental help such as contact guard or steadying during toilet transfer? No. Patient needs more than incidental help TRANSFERS: TOILET - SCORE: 3-MOD TRANSFERS: SHOWER: Activity did not occur on this shift TRANSFERS: SHOWER - SCORE: 0-UNK TRANSFERS: TUB: Activity did not occur on this shift TRANSFERS: TUB - SCORE: 0-UNK LOCOMOTION: WALK: Activity did not occur on this shift LOCOMOTION: WALK - SCORE: 0-UNK LOCOMOTION: WHEELCHAIR: Activity did not occur on this shift LOCOMOTION: WHEELCHAIR - SCORE: 0-UNK COMPREHENSION: COMPREHENSION: TYPE: Both COMPREHENSION - STEP 1: Does the patient require help from a person or device, or need extra time to understand complex and a bstract ideas (such as current events, finances, discharge planning, medical issues, relationships, e tc)? Yes. COMPREHENSION - STEP 2: Does the patient require help to understand questions or statements about basic needs or ideas (such as hunger, thirst, sleep, safety, daily schedule, room location, or discomfort) half or more of the t meche? No. COMPREHENSION - STEP 3: How often does the patient need help to understand directions and conversation about basic needs? 10% - 24% of the time COMPREHENSION - SCORE: 4-MIN EXPRESSION EXPRESSION: TYPE: Both EXPRESSION - STEP 1: Does the patient require help from a person or device, or need extra time expressing complex and abst ract ideas (such as current events, finances, discharge planning, medical issues, relationships, etc) ? No. EXPRESSION - STEP 2: Does the patient need extra time, require an assistive device (such as augmentive communication syste m or a communication board), OR does s/he have mild difficulty expressing complex and abstract ideas (including mild dysarthria or mild word-find problems)? Yes. EXPRESSION - SCORE: 6-SUSANA SOCIAL INTERACTION: SOCIAL INTERACTION - STEP 1: Does the patient require a helper to interact with others in social and therapeutic situations? No. SOCIAL INTERACTION - STEP 2: Does the patient need extra time in social situations, OR does s/he interact with staff, other patien ts, and family members ONLY in structured environments, OR does s/he require medication for social in teraction? Yes, patient requires medication for social interaction SOCIAL INTERACTION - SCORE: 6-SUSANA PROBLEM SOLVING: PROBLEM SOLVING - STEP 1: Does the patient need help from a person or device, or need extra time to solve complex problems such as managing a checking account or confronting interpersonal problems? Yes. PROBLEM SOLVING - STEP 2: Does the patient solve basic routine problems half or more of the time? Yes. PROBLEM SOLVING - STEP 3: How often does the patient need help to solve basic routine problems? 10%-24% of the time PROBLEM SOLVING - SCORE: 4-MIN MEMORY: MEMORY - STEP 1: Does the patient need help from a person or device, or need extra time to remember frequently encount ered people, daily routines, and executing requests? No. MEMORY - STEP 2: Does the patient have slight difficulty recognizing frequently encountered people, daily routines, or executing requests without the need for repetition or using self-initiated or environmental cues to remember? Yes. MEMORY - SCORE: 6-SUSANA SIGNATURE PANEL: The following modified sections: Eating - Score, Grooming - Score, Dressing - Upper Body - Score, Kenny ssing - Lower Body - Score, Toileting - Score, Bladder Management - Score, Bowel Management - Score, Transfers: Bed, Chair, Wheelchair - Score, Transfers: Toilet - Score, Transfers: Shower - Score, Bello sfers: Tub - Score, Locomotion: Walk - Score, Locomotion: Wheelchair - Score, Comprehension - Score, Expression - Score, Social Interaction - Score, Problem Solving - Score, Memory - Score were [electro nically] signed by Viri Pretty CNA on MonJul 12 2018 00:51:57 GMT-0600 (Central Standard Time)
[2018-07-12] MEDS: TRAMADOL HCL 50 MG TAB PO PRN ×4 (05:22→20:37)
[2018-07-12 06:25] LABS: Absolute Monocytes 0.8 K/uL (0.1-1.3); Absolute Neutrophil 7.9 K/uL (1.8-8.0); Eosinophils % 1.1 % (0-4.4); Hematocrit 31.4 % (36.0-45.0); Lymphocytes % 18.2 % (15.3-44.8); MPV 7.7 fL (7.6-11.3); Monocytes % 7.2 % (3.3-12.3); RBC Red Blood Cell Count 3.17 M/uL (3.86-4.86)
[2018-07-12] MEDS: LEVOTHYROXINE SOD 0.075 MG TAB PO SCH (06:35)
[2018-07-12] MEDS: PANTOPRAZOLE 40MG TABLET PO SCH (06:35)
[2018-07-12 07:14] LABS: Albumin 2.7 g/dL (3.4-5.0); Magnesium 1.9 mg/dL (1.8-2.4); Potassium 4.3 mmol/L (3.5-5.1); Prealbumin 13.9 mg/dL (20-40)
[2018-07-12] MEDS: NYSTATIN PWDR 100000 UNIT/GM TOP SCH ×2 (08:00→20:38)
[2018-07-12] MEDS: VENLAFAXINE HCL XR 75 MG CAP PO SCH (08:07)
[2018-07-12] MEDS: FERROUS SULFATE 325 MG TAB PO SCH (08:07)
[2018-07-12] MEDS: AMLODIPINE 5 MG TAB PO SCH (08:07)
[2018-07-12] MEDS: MAGNESIUM OXIDE 400 MG TAB PO SCH ×2 (08:07→20:36)
[2018-07-12] MEDS: DULOXETINE 20 MG CAP PO SCH (08:07)
[2018-07-12] MEDS: LIDOCAINE 5% PATCH TOP SCH (08:07)
[2018-07-12] MEDS: GABAPENTIN 300 MG CAP PO SCH ×2 (08:08→20:35)
[2018-07-12] MEDS: hydroCHLOROthiazide 25 MG TAB PO SCH (08:08)
[2018-07-12] MEDS: BACLOFEN 10 MG TAB PO SCH ×2 (08:08→20:36)
[2018-07-12] MEDS: FE SULF/FA/VIT B COMP & C TAB PO SCH (08:08)
[2018-07-12] MEDS: RIVAROXABAN 15 MG TABLET PO SCH (08:08)
[2018-07-12] MEDS: LISINOPRIL 20 MG TAB PO SCH (08:09)
[2018-07-12] MEDS: PROMOD 30 ML DOSE PO SCH ×2 (08:09→20:37)
[2018-07-12] MEDS: SOLIFENACIN SUCCIN 5 MG TAB PO SCH (08:09)
--- NOTE | 2018-07-12 12:59 | FAST ---
ENCOUNTER DATE AND TIME: 07/12/2018 08:00 (SHELVER) NAME LINH SANDS DATE OF : 1935 DATE OF ADMISSION: 07/09/2018 17:51 (SHELVER) PHONE: AGE: 83 SSN# [id number] GENDER: Female ENCOUNTER PHYSICIAN: Dr. Rambo De La Rosa M.D. ADMISSION DIAGNOSIS: - Orthopaedic Disorders 08 - Unilateral Hip Fracture (08.11) Left Hip Fracture. EATING: EATING - STEP 1: Does the patient require the assistance of a person or device, or need extra time when eating? No. EATING - SCORE: 7-IND GROOMING: Comb/brush hair Oral care Wash, rinse, and dry face Wash, rinse, and dry hands GROOMING - STEP 1: Does the patient require the assistance of a person or device, or need extra time when grooming? No. GROOMING - SCORE: 7-IND BATHING: Abdomen Buttocks Chest Left arm Left lower leg and foot Left upper leg Perineal area Right arm Right lower leg and foot Right upper leg BATHING - STEP 1: Does the patient require the assistance of a person or device, or need extra time when bathing? Yes. BATHING - STEP 2: Does the patient require the assistance of a helper? Yes. BATHING - STEP 3: How much assistance does the patient require from the helper? Only incidental help such as placement of a wash cloth in his/her hand a few times as s/he bathes OR help to bathe just one or two areas of the body BATHING - SCORE: 4-MIN DRESSING - UPPER BODY: T-shirt/pullover shirt (four steps) ARTICLES SCORE Total number of steps: 4 DRESSING - UPPER BODY - STEP 1: Does the patient require help from a person or device, or need extra time when dressing above the [address] st? Yes. DRESSING - UPPER BODY - STEP 2: Does the patient require the assistance of a helper? Yes. DRESSING - UPPER BODY - STEP 3: Does the helper touch the patient while dressing? No. DRESSING - UPPER BODY - SCORE: 5-SUP DRESSING - LOWER BODY: Elastic waist pants (three steps) Slip-on shoe - Left foot (one step) Slip-on shoe - Right foot (one step) Underwear (three steps) ARTICLES SCORE Total number of steps: 8 DRESSING - LOWER BODY - STEP 1: Does the patient require help from a person or device, or need extra time when dressing below the [address] st? Yes. DRESSING - LOWER BODY - STEP 2: Does the patient require the assistance of a helper? Yes. DRESSING - LOWER BODY - STEP 3: Does the helper touch the patient while dressing? Yes. DRESSING - LOWER BODY - STEP 4: How many of the total steps does the patient complete on his/her own? 7 DRESSING - LOWER BODY - SCORE: 4-MIN TOILETING: Activity did not occur on this shift TOILETING - SCORE: 0-UNK BLADDER MANAGEMENT: Activity did not occur on this shift BLADDER MANAGEMENT - SCORE: 7-IND BOWEL MANAGEMENT: Activity did not occur on this shift BOWEL MANAGEMENT - SCORE: 7-IND TRANSFERS: BED, CHAIR, WHEELCHAIR: Activity did not occur on this shift TRANSFERS: BED, CHAIR, WHEELCHAIR - SCORE: 0-UNK TRANSFERS: TOILET: Activity did not occur on this shift TRANSFERS: TOILET - SCORE: 0-UNK TRANSFERS: SHOWER: TRANSFERS: SHOWER - STEP 1: Does the patient require the assistance of a person or device, or need extra time with shower transfe rs? Yes. TRANSFERS: SHOWER - STEP 2: Does the patient require the assistance of a helper? Yes. TRANSFERS: SHOWER - STEP 3: How much assistance does the patient require from the helper? Only incidental help such as contact gu arding or steadying during shower transfers, or help to lift one leg into the shower TRANSFERS: SHOWER - SCORE: 4-MIN TRANSFERS: TUB: Activity did not occur on this shift TRANSFERS: TUB - SCORE: 0-UNK LOCOMOTION: WALK: Activity did not occur on this shift LOCOMOTION: WALK - SCORE: 0-UNK LOCOMOTION: WHEELCHAIR: Activity did not occur on this shift LOCOMOTION: WHEELCHAIR - SCORE: 0-UNK LOCOMOTION: STAIRS: Activity did not occur on this shift LOCOMOTION: STAIRS - SCORE: 0-UNK COMPREHENSION: COMPREHENSION: TYPE: Both COMPREHENSION - STEP 1: Does the patient require help from a person or device, or need extra time to understand complex and a bstract ideas (such as current events, finances, discharge planning, medical issues, relationships, e tc)? No. COMPREHENSION - STEP 2: Does the patient need extra time, require an assistive device (such as glasses for visual comprehensi on or a hearing aid for auditory comprehension) or does s/he have mild difficulty understanding compl ex and abstract information? No. COMPREHENSION - SCORE: 7-IND EXPRESSION EXPRESSION: TYPE: Both EXPRESSION - STEP 1: Does the patient require help from a person or device, or need extra time expressing complex and abst ract ideas (such as current events, finances, discharge planning, medical issues, relationships, etc) ? No. EXPRESSION - STEP 2: Does the patient need extra time, require an assistive device (such as augmentive communication syste m or a communication board), OR does s/he have mild difficulty expressing complex and abstract ideas (including mild dysarthria or mild word-find problems)? No. EXPRESSION - SCORE: 7-IND SOCIAL INTERACTION: SOCIAL INTERACTION - STEP 1: Does the patient require a helper to interact with others in social and therapeutic situations? No. SOCIAL INTERACTION - STEP 2: Does the patient need extra time in social situations, OR does s/he interact with staff, other patien ts, and family members ONLY in structured environments, OR does s/he require medication for social in teraction? No. SOCIAL INTERACTION - SCORE: 7-IND PROBLEM SOLVING: PROBLEM SOLVING - STEP 1: Does the patient need help from a person or device, or need extra time to solve complex problems such as managing a checking account or confronting interpersonal problems? No. PROBLEM SOLVING - STEP 2: Does the patient require extra time to make decisions or solve problems, OR does s/he have slight dif ficulty reading, initiating, or self-correcting in unfamiliar situations? No. PROBLEM SOLVING - SCORE: 7-IND MEMORY: MEMORY - STEP 1: Does the patient need help from a person or device, or need extra time to remember frequently encount ered people, daily routines, and executing requests? No. MEMORY - STEP 2: Does the patient have slight difficulty recognizing frequently encountered people, daily routines, or executing requests without the need for repetition or using self-initiated or environmental cues to remember? No. MEMORY - SCORE: 7-IND SIGNATURE PANEL: The following modified sections: Eating - Score, Grooming - Score, Bathing - Score, Dressing - Upper Body - Score, Dressing - Lower Body - Score, Toileting - Score, Transfers: Bed, Chair, Wheelchair - S core, Transfers: Toilet - Score, Transfers: Tub - Score, Transfers: Shower - Score, Comprehension - S core, Expression - Score, Social Interaction - Score, Problem Solving - Score, Memory - Score were [e lectronically] signed by Susanna Carlson OT on MonJul 12 2018 12:58:21 GMT-0600 (Central Standard T meche)
[2018-07-12] MEDS ORDERED: MORPHINE *EXTENDED RELEASE* 15 MG TAB PO PRN (13:56)
--- NOTE | 2018-07-12 14:47 | FAST ---
SHIFT START DATE/TIME: 07/12/2018 07:00 (ART CLASS MODEL) SHIFT END DATE/TIME: 07/12/2018 19:00 (ART CLASS MODEL) NAME LINH SANDS DATE OF : 1935 DATE OF ADMISSION: 07/09/2018 17:51 (ART CLASS MODEL) PHONE: AGE: 83 SSN# [id number] GENDER: Female ENCOUNTER PHYSICIAN: Dr. Rambo De La Rosa M.D. ADMISSION DIAGNOSIS: - Orthopaedic Disorders 08 - Unilateral Hip Fracture (08.11) Left Hip Fracture. EATING: EATING - STEP 1: Does the patient require the assistance of a person or device, or need extra time when eating? Yes. EATING - STEP 2: Does the patient require the assistance of a helper? No, patient only requires an assistive device, O R s/he takes more than reasonable time to eat, OR there is a safety concern, OR s/he requires modifie d food consistency EATING - SCORE: 6-SUSANA GROOMING: Comb/brush hair Oral care Wash, rinse, and dry face Wash, rinse, and dry hands GROOMING - STEP 1: Does the patient require the assistance of a person or device, or need extra time when grooming? Yes. GROOMING - STEP 2: Does the patient require the assistance of a helper? Yes. GROOMING - STEP 3: How much assistance does the patient require from the helper? Only prior equipment preparation/set up from the helper GROOMING - SCORE: 5-SUP BATHING: Activity did not occur on this shift BATHING - SCORE: 0-UNK DRESSING - UPPER BODY: T-shirt/pullover shirt (four steps) ARTICLES SCORE Total number of steps: 4 DRESSING - UPPER BODY - STEP 1: Does the patient require help from a person or device, or need extra time when dressing above the [address]? Yes. DRESSING - UPPER BODY - STEP 2: Does the patient require the assistance of a helper? No. Patient only requires an assistive device, s uch as a button hook, velcro, or legal cashier. OR s/he takes more than reasonable time as s/he dresses the upper body. OR there is a concern for safety when s/he dresses the upper body DRESSING - UPPER BODY - SCORE: 6-SUSANA DRESSING - LOWER BODY: Slip-on shoe - Left foot (one step) Slip-on shoe - Right foot (one step) Underwear (three steps) ARTICLES SCORE Total number of steps: 5 DRESSING - LOWER BODY - STEP 1: Does the patient require help from a person or device, or need extra time when dressing below the [address]? Yes. DRESSING - LOWER BODY - STEP 2: Does the patient require the assistance of a helper? Yes. DRESSING - LOWER BODY - STEP 3: Does the helper touch the patient while dressing? No. DRESSING - LOWER BODY - SCORE: 5-SUP TOILETING: Activity did not occur on this shift TOILETING - SCORE: 0-UNK TOILETING - COMMENTS: Pt incontient BLADDER MANAGEMENT: [place] removes incontinent device (Depends, pull ups, etc.); cleans the patient after accident / inco ntinent episode; and, applies new incontinent device. BLADDER MANAGEMENT - SCORE: 1-DEP BLADDER MANAGEMENT - FREQUENCY OF ACCIDENTS: BLADDER MANAGEMENT(FA) - STEP 1: How many accidents has the patient had during the current shift? 3 BOWEL MANAGEMENT: Activity did not occur on this shift BOWEL MANAGEMENT - SCORE: 7-IND BOWEL MANAGEMENT - FREQUENCY OF ACCIDENTS: BOWEL MANAGEMENT(FA) - STEP 1: How many accidents has the patient had during the current shift? 0 TRANSFERS: BED, CHAIR, WHEELCHAIR: TRANSFERS: BED, CHAIR, WHEELCHAIR - STEP 1: Does the patient require assistance of a person or device, or need extra time with bed, chair, or whe elchair transfers? Yes. TRANSFERS: BED, CHAIR, WHEELCHAIR - STEP 2: Does the patient require the assistance of a helper? Yes. TRANSFERS: BED, CHAIR, WHEELCHAIR - STEP 3: How much assistance does the patient require from the helper? Steadying/guiding assistance TRANSFERS: BED, CHAIR, WHEELCHAIR - SCORE: 4-MIN TRANSFERS: TOILET: Activity did not occur on this shift TRANSFERS: TOILET - SCORE: 0-UNK TRANSFERS: TOILET - COMMENTS: Pt incontient TRANSFERS: SHOWER: Activity did not occur on this shift TRANSFERS: SHOWER - SCORE: 0-UNK TRANSFERS: TUB: Activity did not occur on this shift TRANSFERS: TUB - SCORE: 0-UNK LOCOMOTION: WALK: Activity did not occur on this shift LOCOMOTION: WALK - SCORE: 0-UNK LOCOMOTION: WHEELCHAIR: LOCOMOTION: WHEELCHAIR - STEP 1: Does the patient need help to go 150 feet in a wheelchair? Yes. LOCOMOTION: WHEELCHAIR - STEP 2: How much assistance does the patient need from the helper? Only supervision, cuing, or coaxing LOCOMOTION: WHEELCHAIR - SCORE: 5-SUP COMPREHENSION: COMPREHENSION: TYPE: Both COMPREHENSION - STEP 1: Does the patient require help from a person or device, or need extra time to understand complex and a bstract ideas (such as current events, finances, discharge planning, medical issues, relationships, e tc)? No. COMPREHENSION - STEP 2: Does the patient need extra time, require an assistive device (such as glasses for visual comprehensi on or a hearing aid for auditory comprehension) or does s/he have mild difficulty understanding compl ex and abstract information? Yes. COMPREHENSION - SCORE: 6-SUSANA EXPRESSION EXPRESSION: TYPE: Both EXPRESSION - STEP 1: Does the patient require help from a person or device, or need extra time expressing complex and abst ract ideas (such as current events, finances, discharge planning, medical issues, relationships, etc) ? No. EXPRESSION - STEP 2: Does the patient need extra time, require an assistive device (such as augmentive communication syste m or a communication board), OR does s/he have mild difficulty expressing complex and abstract ideas (including mild dysarthria or mild word-find problems)? Yes. EXPRESSION - SCORE: 6-SUSANA SOCIAL INTERACTION: SOCIAL INTERACTION - STEP 1: Does the patient require a helper to interact with others in social and therapeutic situations? No. SOCIAL INTERACTION - STEP 2: Does the patient need extra time in social situations, OR does s/he interact with staff, other patien ts, and family members ONLY in structured environments, OR does s/he require medication for social in teraction? Yes, patient needs extra time SOCIAL INTERACTION - SCORE: 6-SUSANA PROBLEM SOLVING: PROBLEM SOLVING - STEP 1: Does the patient need help from a person or device, or need extra time to solve complex problems such as managing a checking account or confronting interpersonal problems? No. PROBLEM SOLVING - STEP 2: Does the patient require extra time to make decisions or solve problems, OR does s/he have slight dif ficulty reading, initiating, or self-correcting in unfamiliar situations? Yes, patient needs extra ti me. PROBLEM SOLVING - SCORE: 6-SUSANA MEMORY: MEMORY - STEP 1: Does the patient need help from a person or device, or need extra time to remember frequently encount ered people, daily routines, and executing requests? No. MEMORY - STEP 2: Does the patient have slight difficulty recognizing frequently encountered people, daily routines, or executing requests without the need for repetition or using self-initiated or environmental cues to remember? Yes. MEMORY - SCORE: 6-SUSANA SIGNATURE PANEL: The following modified sections: Eating - Score, Grooming - Score, Bathing - Score, Dressing - Upper Body - Score, Dressing - Lower Body - Score, Toileting - Score, Toileting - Comments:, Bladder Manage ment - Score, Bowel Management - Score, Transfers: Bed, Chair, Wheelchair - Score, Transfers: Toilet - Score, Transfers: Toilet - Comments:, Transfers: Shower - Score, Transfers: Tub - Score, Locomotion : Walk - Score, Locomotion: Wheelchair - Score, Comprehension - Score, Expression - Score, Social Int eraction - Score, Problem Solving - Score, Memory - Score were [electronically] signed by Lillian encarnacion, C.[email or web address] on MonJul 12 2018 14:47:20 GMT-0600 (Central Standard Time)
--- NOTE | 2018-07-12 15:41 | FAST ---
ENCOUNTER DATE AND TIME: 07/12/2018 08:00 (GENERATING STATION MECHANIC) NAME LINH SANDS DATE OF : 1935 DATE OF ADMISSION: 07/09/2018 17:51 (GENERATING STATION MECHANIC) PHONE: AGE: 83 SSN# [id number] GENDER: Female ENCOUNTER PHYSICIAN: Dr. Rambo De La Rosa M.D. ADMISSION DIAGNOSIS: - Orthopaedic Disorders 08 - Unilateral Hip Fracture (08.11) Left Hip Fracture. EATING: Activity did not occur on this shift EATING - SCORE: 0-UNK GROOMING: Activity did not occur on this shift GROOMING - SCORE: 0-UNK BATHING: Activity did not occur on this shift BATHING - SCORE: 0-UNK DRESSING - UPPER BODY: Activity did not occur on this shift Patient is not dressing in public clothing ARTICLES SCORE Total number of steps: 0 DRESSING - UPPER BODY - SCORE: 0-UNK DRESSING - LOWER BODY: Activity did not occur on this shift Patient is not dressing in public clothing ARTICLES SCORE Total number of steps: 0 DRESSING - LOWER BODY - SCORE: 0-UNK TOILETING: Activity did not occur on this shift TOILETING - SCORE: 0-UNK BLADDER MANAGEMENT: Activity did not occur on this shift BLADDER MANAGEMENT - SCORE: 7-IND BOWEL MANAGEMENT: Activity did not occur on this shift BOWEL MANAGEMENT - SCORE: 7-IND TRANSFERS: BED, CHAIR, WHEELCHAIR: TRANSFERS: BED, CHAIR, WHEELCHAIR - STEP 1: Does the patient require assistance of a person or device, or need extra time with bed, chair, or whe elchair transfers? Yes. TRANSFERS: BED, CHAIR, WHEELCHAIR - STEP 2: Does the patient require the assistance of a helper? Yes. TRANSFERS: BED, CHAIR, WHEELCHAIR - STEP 3: How much assistance does the patient require from the helper? Steadying/guiding assistance TRANSFERS: BED, CHAIR, WHEELCHAIR - SCORE: 4-MIN TRANSFERS: TOILET: Activity did not occur on this shift TRANSFERS: TOILET - SCORE: 0-UNK TRANSFERS: SHOWER: Activity did not occur on this shift TRANSFERS: SHOWER - SCORE: 0-UNK TRANSFERS: TUB: Activity did not occur on this shift TRANSFERS: TUB - SCORE: 0-UNK LOCOMOTION: WALK: LOCOMOTION: WALK - STEP 1: Does the patient need help from a person or device, or need extra time to walk 150 feet? Yes. LOCOMOTION: WALK - STEP 2: How much assistance does the patient require to walk a minimum of 150 feet? Patient walks less than 1 50 feet - but more than 50 feet - with the assistance of only one helper LOCOMOTION: WALK - SCORE: 2-MAX LOCOMOTION: WHEELCHAIR: LOCOMOTION: WHEELCHAIR - STEP 1: Does the patient need help to go 150 feet in a wheelchair? Yes. LOCOMOTION: WHEELCHAIR - STEP 2: How much assistance does the patient need from the helper? Only supervision, cuing, or coaxing LOCOMOTION: WHEELCHAIR - SCORE: 5-SUP LOCOMOTION: STAIRS: Activity did not occur on this shift LOCOMOTION: STAIRS - SCORE: 0-UNK COMPREHENSION: COMPREHENSION - SCORE: 0-UNK EXPRESSION EXPRESSION - SCORE: 0-UNK SOCIAL INTERACTION: SOCIAL INTERACTION - SCORE: 0-UNK PROBLEM SOLVING: PROBLEM SOLVING - SCORE: 0-UNK MEMORY: MEMORY - SCORE: 0-UNK SIGNATURE PANEL: The following modified sections: Transfers: Bed, Chair, Wheelchair - Score, Transfers: Toilet - Score , Locomotion: Walk - Score, Locomotion: Wheelchair - Score, Locomotion: Stairs - Score were [electron ically] signed by Roberto Sumner PTA on MonJul 12 2018 15:40:57 GMT-0600 (Central Standard Time)
--- NOTE | 2018-07-12 18:01 | R.PN ---
ENCOUNTER DATE AND TIME: 07/12/2018 17:56 (BRAINER) NAME LINH SANDS DATE OF : 1935 DATE OF ADMISSION: 07/09/2018 17:51 (BRAINER) Left Hip FractureCHIEF COMPLAINT: Left hip fracture SUBJECTIVE: Pt denied any depression. Pt denied any Shortness of Breath. She had moderate pain in the left hip at rest which was alleviated by MS contin with phenergan in com bination with gabapentin and baclofen. Labs reviewed. Hgb 10.5, prealbumin 13.9. Ambulated 115' with standby assistance using a rolling walker. Self-propelled wheelchair 250' with st andby assistance. VITAL SIGNS Temperature: 98 F SBP/DBP: 129/58 Pulse: 70 Resp: 16 MEDICATION ALLERGIES: Codeine ENVIRONMENTAL ALLERGIES: None Known - Substance Allergies None Known - Other Allergies None Known NURSING: - Shower allowing shower - Skin care per protocol PRECAUTIONS: - Posterior Hip Precaution No adduction across midline No external rotation No hip flexion >90 degrees No internal rotation No wheel chair propulsion - Weight Bearing Precaution WBAT left LE ACTIVITIES OOB only with supervision THERAPIES: - Occupational Therapy Evaluate and Treat. - Physical Therapy Evaluate and Treat. PHYSICAL EXAM - Gen Alert and awake Lying in bed No apparent distress Oriented to: person, time, and place - Skin No breakdown No abnormalities - Eyes No abnormalities - ENMT No abnormalities - Neck No abnormalities - CVS RRR - Chest No abnormalities - Resp Clear to auscultation - Abd +bowel sounds - GI Soft Deferred - No abnormalities - Ext Left hip surgical site has good hemostasis. - MSK 4+/5 weakness in left lower extremity - Neuro 4/5 strength left lower extremity. - Psych No abnormalities ASSESSMENT: Pt. is a 83 yo Right-handed white female.On 06/29/2018 she was admitted to [facility] with francesca gnosis Left Hip Fracture.Her impairment category is Orthopaedic Disorders 08 - Unilateral Hip Fractu re (08.11).Pre-morbidly, Pt. was independent/mod-I in Self-Care, Sphincter Control, Transfers Control , Communication, Social Cognition, and Locomotion; and she had good Sphincter Control.Currently, she has deficits of Self-Care, Transfers Control, Endurance, Balance, Safety Awareness, and Locomotion.Pt . is now referred to [facility] for acute in-patient rehabilitation in order t o maximize patient's functional independence in activities of daily living, strength, ROM, and mobili ty.- Rehab Goal Patient has realistic goal of being discharged at assistance level 6-Radha to reside at Home with Fam wilmer/Relatives. MDM/PLAN: - Physical Therapy Decreased range of motion - to improve, our physical therapists will perform initial evaluation of p t's status upon admission and devise an individualized program for increasing patient's Range of Gianni on. Gait dysfunction - to improve, our physical therapists will perform initial evaluation of pt's statu s upon admission and devise an individualized program for Gait Training, and Wheel Chair mobility Inability to transfer - to improve, our physical therapists will perform initial evaluation of pt's status upon admission and devise an individualized program for Bed mobility Need for home safety evaluation - to improve, our physical therapists will perform initial evaluatio n of pt's status upon admission and devise an individualized program for Home Evaluation Need in caregiver upon discharge - to improve, our physical therapists will perform initial evaluati on of pt's status upon admission and devise an individualized program for Caregiver Training New precaution - to improve, our physical therapists will perform initial evaluation of pt's status upon admission and devise an individualized program for Patient precaution education Poor balance - to improve, our physical therapists will perform initial evaluation of pt's status up on admission and devise an individualized program for Balance Training Poor endurance - to improve, our physical therapists will perform initial evaluation of pt's status upon admission and devise an individualized program for Endurance Training Weakness - to improve, our physical therapists will perform initial evaluation of pt's status upon a dmission and devise an individualized program for Aquatic Therapy, Neuromuscular Reeducation, and Str engthening Achieving independence - to improve, our physical therapists will perform initial evaluation of pt's status upon admission and devise an individualized program for Community Reintegration Activities - Occupational Therapy ADL deficits - to improve, our occupation therapists will perform initial evaluation of pt's status upon admission and devise an individualized program for Bathing, Bed mobility, Community Reintegratio n, Cooking, Dressing, Eating, Fine Motor Skills, Grooming, Homemaking, Kitchen Mobility, Laundry, Pat ient Education, Safety Awareness, Splinting - Positioning, Transfers(Toilet, Tub, Shower), and Wheel Chair Management Need for care attendant - to improve, our occupation therapists will perform initial evaluation of pt's status upon admission and devise an individualized program for Caregiver Training Weakness - to improve, our occupation therapists will perform initial evaluation of pt's status upon admission and devise an individualized program for Aquatic Therapy, Balance, Endurance, UE ROM, and UE strengthening - Anterior Hip Precaution No abduction No active extension No adduction across midline No external rotation No hip flexion >90 degrees No internal rotation - Diet - Liquid Texture Continue Regular - Tube Feed Continue N/A - Diet Type Continue Regular - Posterior Hip Precaution No adduction across midline No external rotation No hip flexion >90 degrees No internal rotation No wheel chair propulsion - Weight Bearing Precaution WBAT left LE - Skin care per protocol - Diet - Solid Texture Continue Regular - Shower allowing shower FUNCTIONAL STATUS: UPDATED AT WEEKLY TEAM CONFERENCE - Bladder Same accident frequency: 7-Ind - No accidents in the past 7 days - Bowel Same accident frequency: 7-Ind - No accidents in the past 7 days - Walking Same score based on distance walked: 3(>=150ft) FUNCTIONAL STATUS: - Self-Care A. Eating sup B. Grooming sup C. Bathing modA D. Dressing - Upper Maria Isabel E. Dressing - Lower maxA F. Toileting modA - Sphincter Control G: Bladder control Ind H: Bowel control Ind - Transfers Control I. Bed/Chair/Wheelchair Maria Isabel J. Toilet Maria Isabel K. Tub/Shower modA - Locomotion L. Walk/Wheelchair (B) Maria Isabel M. Stairs ADNO - Communication N. Comprehension (B) Radha O. Expression (B) Radha - Social Cognition P. Social Interaction Radha Q. Problem Solving Radha R. Memory Radha - Endurance Fair - Balance Fair - Safety Awareness Fair CURRENT FUNC. DEFICITS: Self-Care, Transfers Control, Endurance, Balance, Safety Awareness, and Locomotion SIGNATURE PANEL: ([facility])
[2018-07-12] MEDS: MELATONIN 3 MG TABLET PO PRN (20:36)
[2018-07-12] MEDS: DOCUSATE NA/SENNA CONC 1 TAB PO SCH (20:36)
[2018-07-12] MEDS: PRAMIPEXOLE 0.25 MG TAB PO SCH (20:37)
--- NOTE | 2018-07-13 01:59 | FAST ---
SHIFT START DATE/TIME: 07/12/2018 19:00 (RECORD RETRIEVAL SPECIALIST) SHIFT END DATE/TIME: 07/13/2018 07:00 (RECORD RETRIEVAL SPECIALIST) NAME LINH SANDS DATE OF : 1935 DATE OF ADMISSION: 07/09/2018 17:51 (RECORD RETRIEVAL SPECIALIST) PHONE: AGE: 83 SSN# [id number] GENDER: Female ENCOUNTER PHYSICIAN: Dr. Rambo De La Rosa M.D. ADMISSION DIAGNOSIS: - Orthopaedic Disorders 08 - Unilateral Hip Fracture (08.11) Left Hip Fracture. EATING: Activity did not occur on this shift EATING - SCORE: 0-UNK GROOMING: Oral care Wash, rinse, and dry hands GROOMING - STEP 1: Does the patient require the assistance of a person or device, or need extra time when grooming? Yes. GROOMING - STEP 2: Does the patient require the assistance of a helper? Yes. GROOMING - STEP 3: How much assistance does the patient require from the helper? Only prior equipment preparation/set up from the helper GROOMING - SCORE: 5-SUP BATHING: Activity did not occur on this shift BATHING - SCORE: 0-UNK DRESSING - UPPER BODY: Patient is not dressing in public clothing ARTICLES SCORE Total number of steps: 0 DRESSING - UPPER BODY - SCORE: 0-UNK DRESSING - LOWER BODY: Patient is not dressing in public clothing ARTICLES SCORE Total number of steps: 0 DRESSING - LOWER BODY - SCORE: 0-UNK TOILETING: TOILETING - STEP 1: Does the patient require the assistance of a person or device, or need extra time with toileting? Yes . TOILETING - STEP 2: Does the patient require the assistance of a helper? Yes. TOILETING - STEP 3: How much assistance does the patient require from the helper? Hands-on assistance from the helper TOILETING - STEP 4: Of the 3 tasks: 1) Adjusting clothing prior to use, 2) Cleansing of perineal area, 3) Adjusting clot penny after use; How many tasks does the patient perform WITHOUT assistance of the helper? No tasks; h elper performs all three tasks TOILETING - SCORE: 1-DEP BLADDER MANAGEMENT: [place] removes incontinent device (Depends, pull ups, etc.); cleans the patient after accident / inco ntinent episode; and, applies new incontinent device. BLADDER MANAGEMENT - SCORE: 1-DEP BOWEL MANAGEMENT: Activity did not occur on this shift BOWEL MANAGEMENT - SCORE: 7-IND TRANSFERS: BED, CHAIR, WHEELCHAIR: TRANSFERS: BED, CHAIR, WHEELCHAIR - STEP 1: Does the patient require assistance of a person or device, or need extra time with bed, chair, or whe elchair transfers? Yes. TRANSFERS: BED, CHAIR, WHEELCHAIR - STEP 2: Does the patient require the assistance of a helper? Yes. TRANSFERS: BED, CHAIR, WHEELCHAIR - STEP 3: How much assistance does the patient require from the helper? Lifting of the legs TRANSFERS: BED, CHAIR, WHEELCHAIR - STEP 4: How many legs does the patient require the helper to lift? both legs TRANSFERS: BED, CHAIR, WHEELCHAIR - SCORE: 3-MOD TRANSFERS: TOILET: TRANSFERS: TOILET - STEP 1: Does the patient require the assistance of a person or device, or need extra time with toilet transfe rs? Yes. TRANSFERS: TOILET - STEP 2: Does the patient require the assistance of a helper? Yes. TRANSFERS: TOILET - STEP 3: How much assistance does the patient require from the helper? Patient performs half or more of the tr ansferring tasks TRANSFERS: TOILET - STEP 4: Does the patient need only incidental help such as contact guard or steadying during toilet transfer? No. Patient needs more than incidental help TRANSFERS: TOILET - SCORE: 3-MOD TRANSFERS: SHOWER: Activity did not occur on this shift TRANSFERS: SHOWER - SCORE: 0-UNK TRANSFERS: TUB: Activity did not occur on this shift TRANSFERS: TUB - SCORE: 0-UNK LOCOMOTION: WALK: Activity did not occur on this shift LOCOMOTION: WALK - SCORE: 0-UNK LOCOMOTION: WHEELCHAIR: Activity did not occur on this shift LOCOMOTION: WHEELCHAIR - SCORE: 0-UNK COMPREHENSION: COMPREHENSION: TYPE: Both COMPREHENSION - STEP 1: Does the patient require help from a person or device, or need extra time to understand complex and a bstract ideas (such as current events, finances, discharge planning, medical issues, relationships, e tc)? Yes. COMPREHENSION - STEP 2: Does the patient require help to understand questions or statements about basic needs or ideas (such as hunger, thirst, sleep, safety, daily schedule, room location, or discomfort) half or more of the t meche? No. COMPREHENSION - STEP 3: How often does the patient need help to understand directions and conversation about basic needs? 10% - 24% of the time COMPREHENSION - SCORE: 4-MIN EXPRESSION EXPRESSION: TYPE: Both EXPRESSION - STEP 1: Does the patient require help from a person or device, or need extra time expressing complex and abst ract ideas (such as current events, finances, discharge planning, medical issues, relationships, etc) ? No. EXPRESSION - STEP 2: Does the patient need extra time, require an assistive device (such as augmentive communication syste m or a communication board), OR does s/he have mild difficulty expressing complex and abstract ideas (including mild dysarthria or mild word-find problems)? Yes. EXPRESSION - SCORE: 6-SUSANA SOCIAL INTERACTION: SOCIAL INTERACTION - STEP 1: Does the patient require a helper to interact with others in social and therapeutic situations? No. SOCIAL INTERACTION - STEP 2: Does the patient need extra time in social situations, OR does s/he interact with staff, other patien ts, and family members ONLY in structured environments, OR does s/he require medication for social in teraction? Yes, patient needs extra time SOCIAL INTERACTION - SCORE: 6-SUSANA PROBLEM SOLVING: PROBLEM SOLVING - STEP 1: Does the patient need help from a person or device, or need extra time to solve complex problems such as managing a checking account or confronting interpersonal problems? Yes. PROBLEM SOLVING - STEP 2: Does the patient solve basic routine problems half or more of the time? Yes. PROBLEM SOLVING - STEP 3: How often does the patient need help to solve basic routine problems? 10%-24% of the time PROBLEM SOLVING - SCORE: 4-MIN MEMORY: MEMORY - STEP 1: Does the patient need help from a person or device, or need extra time to remember frequently encount ered people, daily routines, and executing requests? No. MEMORY - STEP 2: Does the patient have slight difficulty recognizing frequently encountered people, daily routines, or executing requests without the need for repetition or using self-initiated or environmental cues to remember? Yes. MEMORY - SCORE: 6-SUSANA SIGNATURE PANEL: The following modified sections: Eating - Score, Grooming - Score, Dressing - Upper Body - Score, Kenny ssing - Lower Body - Score, Toileting - Score, Bladder Management - Score, Bowel Management - Score, Transfers: Bed, Chair, Wheelchair - Score, Transfers: Toilet - Score, Transfers: Shower - Score, [place] sfers: Tub - Score, Locomotion: Walk - Score, Locomotion: Wheelchair - Score, Comprehension - Score, Expression - Score, Social Interaction - Score, Problem Solving - Score, Memory - Score were [electro nically] signed by Viri Pretty CNA on MonJul 13 2018 01:58:14 GMT-0600 (Central Standard Time)
[2018-07-13] MEDS: LEVOTHYROXINE SOD 0.075 MG TAB PO SCH (06:46)
[2018-07-13] MEDS: PANTOPRAZOLE 40MG TABLET PO SCH (06:46)
[2018-07-13] MEDS: FE SULF/FA/VIT B COMP & C TAB PO SCH (08:12)
[2018-07-13] MEDS: BACLOFEN 10 MG TAB PO SCH ×2 (08:12→19:54)
[2018-07-13] MEDS: VENLAFAXINE HCL XR 75 MG CAP PO SCH (08:12)
[2018-07-13] MEDS: hydroCHLOROthiazide 25 MG TAB PO SCH (08:13)
[2018-07-13] MEDS: RIVAROXABAN 15 MG TABLET PO SCH (08:13)
[2018-07-13] MEDS: AMLODIPINE 5 MG TAB PO SCH (08:15)
[2018-07-13] MEDS: FERROUS SULFATE 325 MG TAB PO SCH (08:15)
[2018-07-13] MEDS: MAGNESIUM OXIDE 400 MG TAB PO SCH ×2 (08:15→19:53)
[2018-07-13] MEDS: GABAPENTIN 300 MG CAP PO SCH ×2 (08:15→19:54)
[2018-07-13] MEDS: LISINOPRIL 20 MG TAB PO SCH (08:16)
[2018-07-13] MEDS: DULOXETINE 20 MG CAP PO SCH (08:17)
[2018-07-13] MEDS: SOLIFENACIN SUCCIN 5 MG TAB PO SCH (08:18)
[2018-07-13] MEDS: PROMOD 30 ML DOSE PO SCH ×2 (08:18→20:00)
[2018-07-13] MEDS: TRAMADOL HCL 50 MG TAB PO PRN ×3 (09:00→19:55)
--- NOTE | 2018-07-13 09:53 | P.RH.PN ---
Estimated Length of Stay: 14 Expected Discharge Date: 07/23/18 Discharge Disposition Plan: Home Family Support: Yes Detention Goal: Mobility, Transfers, Self Care Vital Signs: Last Vital Signs Temp 97.2 F 07/13/18 07:20 Pulse 71 07/13/18 08:16 Resp 16 07/13/18 07:20 BP 129/58 L 07/13/18 08:16 Pulse Ox 94 07/13/18 07:20 Laboratory: Laboratory Last Values WBC 10.9 K/uL (4.3-10.9) 07/12/18 05:59 RBC 3.17 M/uL (3.86-4.86) L 07/12/18 05:59 Hgb 10.5 g/dL (12.0-15.0) L 07/12/18 05:59 Hct 31.4 % (36.0-45.0) L 07/12/18 05:59 MCV 99.1 fL (80-100) 07/12/18 05:59 MCH 33.1 pg (27.0-35.0) 07/12/18 05:59 MCHC 33.4 g/dL (32.0-36.0) 07/12/18 05:59 RDW 14.3 % (12.1-15.2) 07/12/18 05:59 Plt Count 427 K/uL (152-406) H 07/12/18 05:59 MPV 7.7 fL (7.6-11.3) 07/12/18 05:59 Neutrophils % 72.5 % (41.7-73.7) 07/12/18 05:59 Lymphocytes % 18.2 % (15.3-44.8) 07/12/18 05:59 Monocytes % 7.2 % (3.3-12.3) 07/12/18 05:59 Eosinophils % 1.1 % (0-4.4) 07/12/18 05:59 Basophils % 1.0 % (0-1.3) 07/12/18 05:59 Absolute Neutrophils 7.9 K/uL (1.8-8.0) 07/12/18 05:59 Absolute Lymphocytes 2.0 K/uL (0.7-4.9) 07/12/18 05:59 Absolute Monocytes 0.8 K/uL (0.1-1.3) 07/12/18 05:59 Absolute Eosinophils 0.1 K/uL (0-0.5) 07/12/18 05:59 Absolute Basophils 0.1 K/uL (0-0.5) 07/12/18 05:59 Sodium 137 mmol/L (136-145) 07/12/18 05:59 Potassium 4.3 mmol/L (3.5-5.1) 07/12/18 05:59 Chloride 98 mmol/L (98-107) 07/12/18 05:59 Carbon Dioxide 35 mmol/L (21-32) H 07/12/18 05:59 BUN 16 mg/dL (7-18) 07/12/18 05:59 Creatinine 0.88 mg/dL (0.55-1.3) 07/12/18 05:59 Estimated GFR 61 mL/min (=/>90) L 07/12/18 05:59 Glucose 116 mg/dL (74-106) H 07/12/18 05:59 Calcium 8.7 mg/dL (8.5-10.1) 07/12/18 05:59 Magnesium 1.9 mg/dL (1.8-2.4) 07/12/18 05:59 Albumin 2.7 g/dL (3.4-5.0) L 07/12/18 05:59 Prealbumin 13.9 mg/dL (20-40) L 07/12/18 05:59 Weight: 225 lb Wound Present: Yes Closed Surgical Incision Present: Yes Negative Pressure Wound Therapy Present: No Physician Update: Labs reviewed. Hgb 10.5. Prealbumin 13.9. Her left hip pain is better controlled with MS contin.. She is sleeping better at night with trazadone. She is ambulating better but her left leg is still mildly week. Pain Issues: Morphine 15mg Q8H PRN. Tramadol 100mg Q4H PRN. Tylenol 650mg Q4H PRN Functional Improvement: Patient continues to work toward meeting goals; having elevated pain in L LE and receiving pain meds on scheduled time frame. Patient improving w/ therapy. Functional Improvement Occupational Therapy: Good participation with therapy, and motivated in using adaptive equipment to improve functional activity performance. Summary: Patient's care plan and intermediate goals have been reviewed and revised as necessary. Please see the Rehabilitation Signature page for all necessary signatures.
[2018-07-13] MEDS: LIDOCAINE 5% PATCH TOP SCH (10:11)
[2018-07-13] MEDS: NYSTATIN PWDR 100000 UNIT/GM TOP SCH ×2 (10:12→20:00)
[2018-07-13] MEDS ORDERED: BISACODYL 10 MG RECTAL SUPP PR PRN (11:14)
[2018-07-13] MEDS ORDERED: BACLOFEN 10 MG TAB PO ONE (12:00)
[2018-07-13 12:02] LABS: Arterial Blood Carboxyhemoglob 1.8 % (0-1.5); Blood Gas Oxyhemoglobin 90.1 % (94-97); Blood O2 Saturation 92.2 % (92-98.5)
[2018-07-13] MEDS ORDERED: FLEET ENEMA ADULT PR PRN (14:41)
--- NOTE | 2018-07-13 14:44 | FAST ---
ENCOUNTER DATE AND TIME: 07/13/2018 08:00 (GUARD IMMIGRATION) NAME LINH SANDS DATE OF : 1935 DATE OF ADMISSION: 07/09/2018 17:51 (GUARD IMMIGRATION) PHONE: AGE: 83 SSN# [id number] GENDER: Female ENCOUNTER PHYSICIAN: Dr. Rambo De La Rosa M.D. ADMISSION DIAGNOSIS: - Orthopaedic Disorders 08 - Unilateral Hip Fracture (08.11) Left Hip Fracture. EATING: Activity did not occur on this shift EATING - SCORE: 0-UNK GROOMING: Activity did not occur on this shift GROOMING - SCORE: 0-UNK BATHING: Activity did not occur on this shift BATHING - SCORE: 0-UNK DRESSING - UPPER BODY: Activity did not occur on this shift Patient is not dressing in public clothing ARTICLES SCORE Total number of steps: 0 DRESSING - UPPER BODY - SCORE: 0-UNK DRESSING - LOWER BODY: Activity did not occur on this shift Patient is not dressing in public clothing ARTICLES SCORE Total number of steps: 0 DRESSING - LOWER BODY - SCORE: 0-UNK TOILETING: Activity did not occur on this shift TOILETING - SCORE: 0-UNK BLADDER MANAGEMENT: Activity did not occur on this shift BLADDER MANAGEMENT - SCORE: 7-IND BOWEL MANAGEMENT: Activity did not occur on this shift BOWEL MANAGEMENT - SCORE: 7-IND TRANSFERS: BED, CHAIR, WHEELCHAIR: Activity did not occur on this shift TRANSFERS: BED, CHAIR, WHEELCHAIR - SCORE: 0-UNK TRANSFERS: TOILET: Activity did not occur on this shift TRANSFERS: TOILET - SCORE: 0-UNK TRANSFERS: SHOWER: Activity did not occur on this shift TRANSFERS: SHOWER - SCORE: 0-UNK TRANSFERS: TUB: Activity did not occur on this shift TRANSFERS: TUB - SCORE: 0-UNK LOCOMOTION: WALK: Activity did not occur on this shift LOCOMOTION: WALK - SCORE: 0-UNK LOCOMOTION: WHEELCHAIR: LOCOMOTION: WHEELCHAIR - STEP 1: Does the patient need help to go 150 feet in a wheelchair? Yes. LOCOMOTION: WHEELCHAIR - STEP 2: How much assistance does the patient need from the helper? Only supervision, cuing, or coaxing LOCOMOTION: WHEELCHAIR - SCORE: 5-SUP LOCOMOTION: STAIRS: Activity did not occur on this shift LOCOMOTION: STAIRS - SCORE: 0-UNK COMPREHENSION: COMPREHENSION - SCORE: 0-UNK EXPRESSION EXPRESSION - SCORE: 0-UNK SOCIAL INTERACTION: SOCIAL INTERACTION - SCORE: 0-UNK PROBLEM SOLVING: PROBLEM SOLVING - SCORE: 0-UNK MEMORY: MEMORY - SCORE: 0-UNK SIGNATURE PANEL: The following modified sections: Transfers: Bed, Chair, Wheelchair - Score, Transfers: Toilet - Score , Locomotion: Walk - Score, Locomotion: Wheelchair - Score, Locomotion: Stairs - Score were [electron ically] signed by Roberto Sumner PTA on MonJul 13 2018 14:43:53 GMT-0600 (Central Standard Time)
[2018-07-13] MEDS: MELATONIN 3 MG TABLET PO PRN (19:54)
[2018-07-13] MEDS: PRAMIPEXOLE 0.25 MG TAB PO SCH (20:01)
[2018-07-13] MEDS: DOCUSATE NA/SENNA CONC 1 TAB PO SCH (21:00)
--- NOTE | 2018-07-14 02:25 | FAST ---
SHIFT START DATE/TIME: 07/13/2018 19:00 (MORNING NEWS ANCHOR) SHIFT END DATE/TIME: 07/14/2018 07:00 (MORNING NEWS ANCHOR) NAME LINH SANDS DATE OF : 1935 DATE OF ADMISSION: 07/09/2018 17:51 (MORNING NEWS ANCHOR) PHONE: AGE: 83 SSN# [id number] GENDER: Female ENCOUNTER PHYSICIAN: Dr. Rambo De La Rosa M.D. ADMISSION DIAGNOSIS: - Orthopaedic Disorders 08 - Unilateral Hip Fracture (08.11) Left Hip Fracture. EATING: Activity did not occur on this shift EATING - SCORE: 0-UNK GROOMING: Oral care Wash, rinse, and dry face Wash, rinse, and dry hands GROOMING - STEP 1: Does the patient require the assistance of a person or device, or need extra time when grooming? Yes. GROOMING - STEP 2: Does the patient require the assistance of a helper? Yes. GROOMING - STEP 3: How much assistance does the patient require from the helper? Only prior equipment preparation/set up from the helper GROOMING - SCORE: 5-SUP BATHING: Activity did not occur on this shift BATHING - SCORE: 0-UNK DRESSING - UPPER BODY: Patient is not dressing in public clothing ARTICLES SCORE Total number of steps: 0 DRESSING - UPPER BODY - SCORE: 0-UNK DRESSING - LOWER BODY: Patient is not dressing in public clothing ARTICLES SCORE Total number of steps: 0 DRESSING - LOWER BODY - SCORE: 0-UNK TOILETING: TOILETING - STEP 1: Does the patient require the assistance of a person or device, or need extra time with toileting? Yes . TOILETING - STEP 2: Does the patient require the assistance of a helper? Yes. TOILETING - STEP 3: How much assistance does the patient require from the helper? Hands-on assistance from the helper TOILETING - STEP 4: Of the 3 tasks: 1) Adjusting clothing prior to use, 2) Cleansing of perineal area, 3) Adjusting clot penny after use; How many tasks does the patient perform WITHOUT assistance of the helper? No tasks; h elper performs all three tasks TOILETING - SCORE: 1-DEP BLADDER MANAGEMENT: [place] removes incontinent device (Depends, pull ups, etc.); cleans the patient after accident / inco ntinent episode; and, applies new incontinent device. BLADDER MANAGEMENT - SCORE: 1-DEP BLADDER MANAGEMENT - FREQUENCY OF ACCIDENTS: BLADDER MANAGEMENT(FA) - STEP 1: How many accidents has the patient had during the current shift? 1 BOWEL MANAGEMENT: Activity did not occur on this shift BOWEL MANAGEMENT - SCORE: 7-IND TRANSFERS: BED, CHAIR, WHEELCHAIR: TRANSFERS: BED, CHAIR, WHEELCHAIR - STEP 1: Does the patient require assistance of a person or device, or need extra time with bed, chair, or whe elchair transfers? Yes. TRANSFERS: BED, CHAIR, WHEELCHAIR - STEP 2: Does the patient require the assistance of a helper? Yes. TRANSFERS: BED, CHAIR, WHEELCHAIR - STEP 3: How much assistance does the patient require from the helper? Lifting of the legs TRANSFERS: BED, CHAIR, WHEELCHAIR - STEP 4: How many legs does the patient require the helper to lift? both legs TRANSFERS: BED, CHAIR, WHEELCHAIR - SCORE: 3-MOD TRANSFERS: TOILET: TRANSFERS: TOILET - STEP 1: Does the patient require the assistance of a person or device, or need extra time with toilet transfe rs? Yes. TRANSFERS: TOILET - STEP 2: Does the patient require the assistance of a helper? Yes. TRANSFERS: TOILET - STEP 3: How much assistance does the patient require from the helper? Patient performs half or more of the tr ansferring tasks TRANSFERS: TOILET - STEP 4: Does the patient need only incidental help such as contact guard or steadying during toilet transfer? No. Patient needs more than incidental help TRANSFERS: TOILET - SCORE: 3-MOD TRANSFERS: SHOWER: Activity did not occur on this shift TRANSFERS: SHOWER - SCORE: 0-UNK TRANSFERS: TUB: Activity did not occur on this shift TRANSFERS: TUB - SCORE: 0-UNK LOCOMOTION: WALK: Activity did not occur on this shift LOCOMOTION: WALK - SCORE: 0-UNK LOCOMOTION: WHEELCHAIR: Activity did not occur on this shift LOCOMOTION: WHEELCHAIR - SCORE: 0-UNK COMPREHENSION: COMPREHENSION: TYPE: Both COMPREHENSION - STEP 1: Does the patient require help from a person or device, or need extra time to understand complex and a bstract ideas (such as current events, finances, discharge planning, medical issues, relationships, e tc)? Yes. COMPREHENSION - STEP 2: Does the patient require help to understand questions or statements about basic needs or ideas (such as hunger, thirst, sleep, safety, daily schedule, room location, or discomfort) half or more of the t meche? No. COMPREHENSION - STEP 3: How often does the patient need help to understand directions and conversation about basic needs? Les s than 10% of the time COMPREHENSION - SCORE: 5-SUP EXPRESSION EXPRESSION: TYPE: Both EXPRESSION - STEP 1: Does the patient require help from a person or device, or need extra time expressing complex and abst ract ideas (such as current events, finances, discharge planning, medical issues, relationships, etc) ? No. EXPRESSION - STEP 2: Does the patient need extra time, require an assistive device (such as augmentive communication syste m or a communication board), OR does s/he have mild difficulty expressing complex and abstract ideas (including mild dysarthria or mild word-find problems)? Yes. EXPRESSION - SCORE: 6-SUSANA SOCIAL INTERACTION: SOCIAL INTERACTION - STEP 1: Does the patient require a helper to interact with others in social and therapeutic situations? No. SOCIAL INTERACTION - STEP 2: Does the patient need extra time in social situations, OR does s/he interact with staff, other patien ts, and family members ONLY in structured environments, OR does s/he require medication for social in teraction? Yes, patient needs extra time SOCIAL INTERACTION - SCORE: 6-SUSANA PROBLEM SOLVING: PROBLEM SOLVING - STEP 1: Does the patient need help from a person or device, or need extra time to solve complex problems such as managing a checking account or confronting interpersonal problems? Yes. PROBLEM SOLVING - STEP 2: Does the patient solve basic routine problems half or more of the time? Yes. PROBLEM SOLVING - STEP 3: How often does the patient need help to solve basic routine problems? Less than 10% of the time PROBLEM SOLVING - SCORE: 5-SUP MEMORY: MEMORY - STEP 1: Does the patient need help from a person or device, or need extra time to remember frequently encount ered people, daily routines, and executing requests? Yes. MEMORY - STEP 2: How often does the patient need help to remember frequently encountered people, daily routines, and e xecuting requests? Less than 10% of the time MEMORY - SCORE: 5-SUP
[2018-07-14] MEDS: TRAMADOL HCL 50 MG TAB PO PRN ×4 (04:20→16:41)
[2018-07-14] MEDS: LEVOTHYROXINE SOD 0.075 MG TAB PO SCH (07:36)
[2018-07-14] MEDS: PANTOPRAZOLE 40MG TABLET PO SCH (07:37)
[2018-07-14] MEDS: hydroCHLOROthiazide 25 MG TAB PO SCH (08:48)
[2018-07-14] MEDS: FERROUS SULFATE 325 MG TAB PO SCH (08:48)
[2018-07-14] MEDS: VENLAFAXINE HCL XR 75 MG CAP PO SCH (08:48)
[2018-07-14] MEDS: MAGNESIUM OXIDE 400 MG TAB PO SCH ×2 (08:48→19:12)
[2018-07-14] MEDS: FE SULF/FA/VIT B COMP & C TAB PO SCH (08:49)
[2018-07-14] MEDS: AMLODIPINE 5 MG TAB PO SCH (08:49)
[2018-07-14] MEDS: BACLOFEN 10 MG TAB PO SCH ×2 (08:49→19:11)
[2018-07-14] MEDS: GABAPENTIN 300 MG CAP PO SCH ×2 (08:49→19:11)
[2018-07-14] MEDS: DULOXETINE 20 MG CAP PO SCH (08:49)
[2018-07-14] MEDS: LISINOPRIL 20 MG TAB PO SCH (08:49)
[2018-07-14] MEDS: PROMOD 30 ML DOSE PO SCH ×2 (08:50→19:10)
[2018-07-14] MEDS: SOLIFENACIN SUCCIN 5 MG TAB PO SCH (08:51)
[2018-07-14] MEDS: RIVAROXABAN 15 MG TABLET PO SCH (08:53)
--- NOTE | 2018-07-14 11:08 | FAST ---
SHIFT START DATE/TIME: 07/14/2018 07:00 (STRUCTURAL MILL SUPERVISOR) SHIFT END DATE/TIME: 07/14/2018 19:00 (STRUCTURAL MILL SUPERVISOR) NAME LINH SANDS DATE OF : 1935 DATE OF ADMISSION: 07/09/2018 17:51 (STRUCTURAL MILL SUPERVISOR) PHONE: AGE: 83 SSN# [id number] GENDER: Female ENCOUNTER PHYSICIAN: Dr. Rambo De La Rosa M.D. ADMISSION DIAGNOSIS: - Orthopaedic Disorders 08 - Unilateral Hip Fracture (08.11) Left Hip Fracture. EATING: EATING - STEP 1: Does the patient require the assistance of a person or device, or need extra time when eating? Yes. EATING - STEP 2: Does the patient require the assistance of a helper? No, patient only requires an assistive device, O R s/he takes more than reasonable time to eat, OR there is a safety concern, OR s/he requires modifie d food consistency EATING - SCORE: 6-SUSANA GROOMING: Comb/brush hair Oral care GROOMING - STEP 1: Does the patient require the assistance of a person or device, or need extra time when grooming? Yes. GROOMING - STEP 2: Does the patient require the assistance of a helper? No. The patient only requires an assistive devic e, OR takes more than reasonable time to groom, OR there is a concern for safety as the patient groom s GROOMING - SCORE: 6-SUSANA BATHING: Activity did not occur on this shift BATHING - SCORE: 0-UNK DRESSING - UPPER BODY: T-shirt/pullover shirt (four steps) ARTICLES SCORE Total number of steps: 4 DRESSING - UPPER BODY - STEP 1: Does the patient require help from a person or device, or need extra time when dressing above the [address]? Yes. DRESSING - UPPER BODY - STEP 2: Does the patient require the assistance of a helper? Yes. DRESSING - UPPER BODY - STEP 3: Does the helper touch the patient while dressing? No. DRESSING - UPPER BODY - SCORE: 5-SUP DRESSING - LOWER BODY: ARTICLES SCORE Total number of steps: 5 DRESSING - LOWER BODY - STEP 1: Does the patient require help from a person or device, or need extra time when dressing below the [address] st? Yes. DRESSING - LOWER BODY - STEP 2: Does the patient require the assistance of a helper? Yes. DRESSING - LOWER BODY - STEP 3: Does the helper touch the patient while dressing? Yes. DRESSING - LOWER BODY - STEP 4: How many of the total steps does the patient complete on his/her own? 2 DRESSING - LOWER BODY - STEP 5: Does patient require total assistance for dressing below the waist such as the helper holding clothin g and performing basically all the activities? No. DRESSING - LOWER BODY - SCORE: 2-MAX TOILETING: TOILETING - STEP 1: Does the patient require the assistance of a person or device, or need extra time with toileting? Yes . TOILETING - STEP 2: Does the patient require the assistance of a helper? Yes. TOILETING - STEP 3: How much assistance does the patient require from the helper? Hands-on assistance from the helper TOILETING - STEP 4: Of the 3 tasks: 1) Adjusting clothing prior to use, 2) Cleansing of perineal area, 3) Adjusting clot penny after use; How many tasks does the patient perform WITHOUT assistance of the helper? Two tasks TOILETING - SCORE: 3-MOD BLADDER MANAGEMENT: [place] removes incontinent device (Depends, pull ups, etc.); cleans the patient after accident / inco ntinent episode; and, applies new incontinent device. BLADDER MANAGEMENT - SCORE: 1-DEP BOWEL MANAGEMENT: Activity did not occur on this shift BOWEL MANAGEMENT - SCORE: 7-IND TRANSFERS: BED, CHAIR, WHEELCHAIR: TRANSFERS: BED, CHAIR, WHEELCHAIR - STEP 1: Does the patient require assistance of a person or device, or need extra time with bed, chair, or whe elchair transfers? Yes. TRANSFERS: BED, CHAIR, WHEELCHAIR - STEP 2: Does the patient require the assistance of a helper? Yes. TRANSFERS: BED, CHAIR, WHEELCHAIR - STEP 3: How much assistance does the patient require from the helper? Steadying/guiding assistance TRANSFERS: BED, CHAIR, WHEELCHAIR - SCORE: 4-MIN TRANSFERS: TOILET: TRANSFERS: TOILET - STEP 1: Does the patient require the assistance of a person or device, or need extra time with toilet transfe rs? Yes. TRANSFERS: TOILET - STEP 2: Does the patient require the assistance of a helper? Yes. TRANSFERS: TOILET - STEP 3: How much assistance does the patient require from the helper? Patient performs half or more of the tr ansferring tasks TRANSFERS: TOILET - STEP 4: Does the patient need only incidental help such as contact guard or steadying during toilet transfer? Yes. TRANSFERS: TOILET - SCORE: 4-MIN TRANSFERS: SHOWER: Activity did not occur on this shift TRANSFERS: SHOWER - SCORE: 0-UNK TRANSFERS: TUB: Activity did not occur on this shift TRANSFERS: TUB - SCORE: 0-UNK LOCOMOTION: WALK: Activity did not occur on this shift LOCOMOTION: WALK - SCORE: 0-UNK LOCOMOTION: WHEELCHAIR: Activity did not occur on this shift LOCOMOTION: WHEELCHAIR - SCORE: 0-UNK COMPREHENSION: COMPREHENSION: TYPE: Both COMPREHENSION - STEP 1: Does the patient require help from a person or device, or need extra time to understand complex and a bstract ideas (such as current events, finances, discharge planning, medical issues, relationships, e tc)? No. COMPREHENSION - STEP 2: Does the patient need extra time, require an assistive device (such as glasses for visual comprehensi on or a hearing aid for auditory comprehension) or does s/he have mild difficulty understanding compl ex and abstract information? Yes. COMPREHENSION - SCORE: 6-SUSANA EXPRESSION EXPRESSION: TYPE: Both EXPRESSION - STEP 1: Does the patient require help from a person or device, or need extra time expressing complex and abst ract ideas (such as current events, finances, discharge planning, medical issues, relationships, etc) ? No. EXPRESSION - STEP 2: Does the patient need extra time, require an assistive device (such as augmentive communication syste m or a communication board), OR does s/he have mild difficulty expressing complex and abstract ideas (including mild dysarthria or mild word-find problems)? Yes. EXPRESSION - SCORE: 6-SUSANA SOCIAL INTERACTION: SOCIAL INTERACTION - STEP 1: Does the patient require a helper to interact with others in social and therapeutic situations? No. SOCIAL INTERACTION - STEP 2: Does the patient need extra time in social situations, OR does s/he interact with staff, other patien ts, and family members ONLY in structured environments, OR does s/he require medication for social in teraction? Yes, patient needs extra time SOCIAL INTERACTION - SCORE: 6-SUSANA PROBLEM SOLVING: PROBLEM SOLVING - STEP 1: Does the patient need help from a person or device, or need extra time to solve complex problems such as managing a checking account or confronting interpersonal problems? No. PROBLEM SOLVING - STEP 2: Does the patient require extra time to make decisions or solve problems, OR does s/he have slight dif ficulty reading, initiating, or self-correcting in unfamiliar situations? Yes, patient needs extra ti me. PROBLEM SOLVING - SCORE: 6-SUSANA MEMORY: MEMORY - STEP 1: Does the patient need help from a person or device, or need extra time to remember frequently encount ered people, daily routines, and executing requests? No. MEMORY - STEP 2: Does the patient have slight difficulty recognizing frequently encountered people, daily routines, or executing requests without the need for repetition or using self-initiated or environmental cues to remember? Yes. MEMORY - SCORE: 6-SUSANA SIGNATURE PANEL: The following modified sections: Eating - Score, Grooming - Score, Bathing - Score, Dressing - Upper Body - Score, Dressing - Lower Body - Score, Toileting - Score, Bladder Management - Score, Bowel Man agement - Score, Transfers: Bed, Chair, Wheelchair - Score, Transfers: Toilet - Score, Transfers: Rubi wer - Score, Transfers: Tub - Score, Locomotion: Walk - Score, Locomotion: Wheelchair - Score, Compre hension - Score, Expression - Score, Social Interaction - Score, Problem Solving - Score, Memory - Sc ore were [electronically] signed by Julio Marin on Sat Jul 14 2018 11:06:57 GMT-0600 (Central Standard Time)
[2018-07-14] MEDS: LIDOCAINE 5% PATCH TOP SCH (12:56)
[2018-07-14] MEDS: NYSTATIN PWDR 100000 UNIT/GM TOP SCH ×2 (12:57→19:12)
--- NOTE | 2018-07-14 16:32 | FAST ---
ENCOUNTER DATE AND TIME: 07/14/2018 08:00 (BOWL ATTENDANT) NAME LINH SANDS DATE OF : 1935 DATE OF ADMISSION: 07/09/2018 17:51 (BOWL ATTENDANT) PHONE: AGE: 83 SSN# [id number] GENDER: Female ENCOUNTER PHYSICIAN: Dr. Rambo De La Rosa M.D. ADMISSION DIAGNOSIS: - Orthopaedic Disorders 08 - Unilateral Hip Fracture (08.11) Left Hip Fracture. EATING: Activity did not occur on this shift EATING - SCORE: 0-UNK GROOMING: Comb/brush hair Wash, rinse, and dry face Wash, rinse, and dry hands GROOMING - STEP 1: Does the patient require the assistance of a person or device, or need extra time when grooming? No. GROOMING - SCORE: 7-IND BATHING: Abdomen Buttocks Chest Left arm Left lower leg and foot Left upper leg Perineal area Right arm Right lower leg and foot Right upper leg BATHING - STEP 1: Does the patient require the assistance of a person or device, or need extra time when bathing? Yes. BATHING - STEP 2: Does the patient require the assistance of a helper? Yes. BATHING - STEP 3: How much assistance does the patient require from the helper? Only incidental help such as placement of a wash cloth in his/her hand a few times as s/he bathes OR help to bathe just one or two areas of the body BATHING - SCORE: 4-MIN BATHING - COMMENTS: Required CGA with standing balance to wash perineal/buttocks DRESSING - UPPER BODY: T-shirt/pullover shirt (four steps) ARTICLES SCORE Total number of steps: 4 DRESSING - UPPER BODY - STEP 1: Does the patient require help from a person or device, or need extra time when dressing above the [address] st? Yes. DRESSING - UPPER BODY - STEP 2: Does the patient require the assistance of a helper? Yes. DRESSING - UPPER BODY - STEP 3: Does the helper touch the patient while dressing? No. DRESSING - UPPER BODY - SCORE: 5-SUP DRESSING - LOWER BODY: Elastic waist pants (three steps) Underwear (three steps) ARTICLES SCORE Total number of steps: 6 DRESSING - LOWER BODY - STEP 1: Does the patient require help from a person or device, or need extra time when dressing below the [address]? Yes. DRESSING - LOWER BODY - STEP 2: Does the patient require the assistance of a helper? Yes. DRESSING - LOWER BODY - STEP 3: Does the helper touch the patient while dressing? Yes. DRESSING - LOWER BODY - STEP 4: How many of the total steps does the patient complete on his/her own? 5 DRESSING - LOWER BODY - SCORE: 4-MIN TOILETING: Activity did not occur on this shift TOILETING - SCORE: 0-UNK BLADDER MANAGEMENT: Activity did not occur on this shift BLADDER MANAGEMENT - SCORE: 7-IND BOWEL MANAGEMENT: Activity did not occur on this shift BOWEL MANAGEMENT - SCORE: 7-IND TRANSFERS: BED, CHAIR, WHEELCHAIR: Activity did not occur on this shift TRANSFERS: BED, CHAIR, WHEELCHAIR - SCORE: 0-UNK TRANSFERS: TOILET: Activity did not occur on this shift TRANSFERS: TOILET - SCORE: 0-UNK TRANSFERS: SHOWER: TRANSFERS: SHOWER - STEP 1: Does the patient require the assistance of a person or device, or need extra time with shower transfe rs? Yes. TRANSFERS: SHOWER - STEP 2: Does the patient require the assistance of a helper? Yes. TRANSFERS: SHOWER - STEP 3: How much assistance does the patient require from the helper? Only incidental help such as contact gu arding or steadying during shower transfers, or help to lift one leg into the shower TRANSFERS: SHOWER - SCORE: 4-MIN TRANSFERS: TUB: Activity did not occur on this shift TRANSFERS: TUB - SCORE: 0-UNK LOCOMOTION: WALK: Activity did not occur on this shift LOCOMOTION: WALK - SCORE: 0-UNK LOCOMOTION: WHEELCHAIR: Activity did not occur on this shift LOCOMOTION: WHEELCHAIR - SCORE: 0-UNK LOCOMOTION: STAIRS: Activity did not occur on this shift LOCOMOTION: STAIRS - SCORE: 0-UNK COMPREHENSION: COMPREHENSION: TYPE: Both COMPREHENSION - STEP 1: Does the patient require help from a person or device, or need extra time to understand complex and a bstract ideas (such as current events, finances, discharge planning, medical issues, relationships, e tc)? No. COMPREHENSION - STEP 2: Does the patient need extra time, require an assistive device (such as glasses for visual comprehensi on or a hearing aid for auditory comprehension) or does s/he have mild difficulty understanding compl ex and abstract information? No. COMPREHENSION - SCORE: 7-IND EXPRESSION EXPRESSION: TYPE: Both EXPRESSION - STEP 1: Does the patient require help from a person or device, or need extra time expressing complex and abst ract ideas (such as current events, finances, discharge planning, medical issues, relationships, etc) ? No. EXPRESSION - STEP 2: Does the patient need extra time, require an assistive device (such as augmentive communication syste m or a communication board), OR does s/he have mild difficulty expressing complex and abstract ideas (including mild dysarthria or mild word-find problems)? No. EXPRESSION - SCORE: 7-IND SOCIAL INTERACTION: SOCIAL INTERACTION - STEP 1: Does the patient require a helper to interact with others in social and therapeutic situations? No. SOCIAL INTERACTION - STEP 2: Does the patient need extra time in social situations, OR does s/he interact with staff, other patien ts, and family members ONLY in structured environments, OR does s/he require medication for social in teraction? No. SOCIAL INTERACTION - SCORE: 7-IND PROBLEM SOLVING: PROBLEM SOLVING - STEP 1: Does the patient need help from a person or device, or need extra time to solve complex problems such as managing a checking account or confronting interpersonal problems? No. PROBLEM SOLVING - STEP 2: Does the patient require extra time to make decisions or solve problems, OR does s/he have slight dif ficulty reading, initiating, or self-correcting in unfamiliar situations? No. PROBLEM SOLVING - SCORE: 7-IND MEMORY: MEMORY - STEP 1: Does the patient need help from a person or device, or need extra time to remember frequently encount ered people, daily routines, and executing requests? No. MEMORY - STEP 2: Does the patient have slight difficulty recognizing frequently encountered people, daily routines, or executing requests without the need for repetition or using self-initiated or environmental cues to remember? No. MEMORY - SCORE: 7-IND SIGNATURE PANEL: The following modified sections: Eating - Score, Grooming - Score, Bathing - Score, Bathing - Comment s:, Dressing - Upper Body - Score, Dressing - Lower Body - Score, Toileting - Score, Transfers: Bed, Chair, Wheelchair - Score, Transfers: Toilet - Score, Transfers: Shower - Score, Transfers: Tub - Sco re, Comprehension - Score, Expression - Score, Social Interaction - Score, Problem Solving - Score, M kenji - Score were [electronically] signed by MAXIMO Hoffmann on Sat Jul 14 2018 16:31:20 GMT-060 0 (Central Standard Time)
[2018-07-14] MEDS: DOCUSATE NA/SENNA CONC 1 TAB PO SCH (21:23)
[2018-07-14] MEDS: MELATONIN 3 MG TABLET PO PRN (21:24)
[2018-07-14] MEDS: PRAMIPEXOLE 0.25 MG TAB PO SCH (21:24)
--- NOTE | 2018-07-15 03:19 | FAST ---
SHIFT START DATE/TIME: 07/14/2018 19:00 (RADIAGRAPH OPERATOR) SHIFT END DATE/TIME: 07/15/2018 08:00 (CDT) NAME LINH SANDS DATE OF : 1935 DATE OF ADMISSION: 07/09/2018 17:51 (RADIAGRAPH OPERATOR) PHONE: AGE: 83 SSN# [id number] GENDER: Female ENCOUNTER PHYSICIAN: Dr. Rambo De La Rosa M.D. ADMISSION DIAGNOSIS: - Orthopaedic Disorders 08 - Unilateral Hip Fracture (08.) Left Hip Fracture. EATING: Activity did not occur on this shift EATING - SCORE: 0-UNK GROOMING: Activity did not occur on this shift GROOMING - SCORE: 0-UNK BATHING: Activity did not occur on this shift BATHING - SCORE: 0-UNK DRESSING - UPPER BODY: Patient is not dressing in public clothing ARTICLES SCORE Total number of steps: 0 DRESSING - UPPER BODY - SCORE: 0-UNK DRESSING - LOWER BODY: Patient is not dressing in public clothing ARTICLES SCORE Total number of steps: 0 DRESSING - LOWER BODY - SCORE: 0-UNK TOILETING: Activity did not occur on this shift TOILETING - SCORE: 0-UNK BLADDER MANAGEMENT: [place] removes incontinent device (Depends, pull ups, etc.); cleans the patient after accident / inco ntinent episode; and, applies new incontinent device. BLADDER MANAGEMENT - SCORE: 1-DEP BOWEL MANAGEMENT: Activity did not occur on this shift BOWEL MANAGEMENT - SCORE: 7-IND TRANSFERS: BED, CHAIR, WHEELCHAIR: Activity did not occur on this shift TRANSFERS: BED, CHAIR, WHEELCHAIR - SCORE: 0-UNK TRANSFERS: TOILET: Activity did not occur on this shift TRANSFERS: TOILET - SCORE: 0-UNK TRANSFERS: SHOWER: Activity did not occur on this shift TRANSFERS: SHOWER - SCORE: 0-UNK TRANSFERS: TUB: Activity did not occur on this shift TRANSFERS: TUB - SCORE: 0-UNK LOCOMOTION: WALK: Activity did not occur on this shift LOCOMOTION: WALK - SCORE: 0-UNK LOCOMOTION: WHEELCHAIR: Activity did not occur on this shift LOCOMOTION: WHEELCHAIR - SCORE: 0-UNK COMPREHENSION: COMPREHENSION: TYPE: Both COMPREHENSION - STEP 1: Does the patient require help from a person or device, or need extra time to understand complex and a bstract ideas (such as current events, finances, discharge planning, medical issues, relationships, e tc)? No. COMPREHENSION - STEP 2: Does the patient need extra time, require an assistive device (such as glasses for visual comprehensi on or a hearing aid for auditory comprehension) or does s/he have mild difficulty understanding compl ex and abstract information? Yes. COMPREHENSION - SCORE: 6-SUSANA EXPRESSION EXPRESSION: TYPE: Both EXPRESSION - STEP 1: Does the patient require help from a person or device, or need extra time expressing complex and abst ract ideas (such as current events, finances, discharge planning, medical issues, relationships, etc) ? No. EXPRESSION - STEP 2: Does the patient need extra time, require an assistive device (such as augmentive communication syste m or a communication board), OR does s/he have mild difficulty expressing complex and abstract ideas (including mild dysarthria or mild word-find problems)? No. EXPRESSION - SCORE: 7-IND SOCIAL INTERACTION: SOCIAL INTERACTION - STEP 1: Does the patient require a helper to interact with others in social and therapeutic situations? No. SOCIAL INTERACTION - STEP 2: Does the patient need extra time in social situations, OR does s/he interact with staff, other patien ts, and family members ONLY in structured environments, OR does s/he require medication for social in teraction? No. SOCIAL INTERACTION - SCORE: 7-IND PROBLEM SOLVING: PROBLEM SOLVING - STEP 1: Does the patient need help from a person or device, or need extra time to solve complex problems such as managing a checking account or confronting interpersonal problems? No. PROBLEM SOLVING - STEP 2: Does the patient require extra time to make decisions or solve problems, OR does s/he have slight dif ficulty reading, initiating, or self-correcting in unfamiliar situations? No. PROBLEM SOLVING - SCORE: 7-IND MEMORY: MEMORY - STEP 1: Does the patient need help from a person or device, or need extra time to remember frequently encount ered people, daily routines, and executing requests? No. MEMORY - STEP 2: Does the patient have slight difficulty recognizing frequently encountered people, daily routines, or executing requests without the need for repetition or using self-initiated or environmental cues to remember? No. MEMORY - SCORE: 7-IND SIGNATURE PANEL: The following modified sections: Eating - Score, Grooming - Score, Bathing - Score, Dressing - Upper Body - Score, Dressing - Lower Body - Score, Toileting - Score, Bladder Management - Score, Bowel Man agement - Score, Transfers: Bed, Chair, Wheelchair - Score, Transfers: Toilet - Score, Transfers: Rubi wer - Score, Transfers: Tub - Score, Locomotion: Walk - Score, Locomotion: Wheelchair - Score, Compre hension - Score, Expression - Score, Social Interaction - Score, Problem Solving - Score, Memory - Sc ore were [electronically] signed by Jody Lee CNA on MonJul 15 2018 03:18:11 T-0500 ([place] Da [place]light Time)
[2018-07-15] MEDS: LEVOTHYROXINE SOD 0.075 MG TAB PO SCH (06:58)
[2018-07-15] MEDS: PANTOPRAZOLE 40MG TABLET PO SCH (06:58)
[2018-07-15] MEDS: TRAMADOL HCL 50 MG TAB PO PRN ×2 (06:58→12:45)
[2018-07-15] MEDS: LISINOPRIL 20 MG TAB PO SCH (08:40)
[2018-07-15] MEDS: AMLODIPINE 5 MG TAB PO SCH (08:40)
[2018-07-15] MEDS: DULOXETINE 20 MG CAP PO SCH (08:41)
[2018-07-15] MEDS: VENLAFAXINE HCL XR 75 MG CAP PO SCH (08:41)
[2018-07-15] MEDS: hydroCHLOROthiazide 25 MG TAB PO SCH (08:41)
[2018-07-15] MEDS: BACLOFEN 10 MG TAB PO SCH ×2 (08:42→19:33)
[2018-07-15] MEDS: GABAPENTIN 300 MG CAP PO SCH ×2 (08:42→19:33)
[2018-07-15] MEDS: FERROUS SULFATE 325 MG TAB PO SCH (08:42)
[2018-07-15] MEDS: RIVAROXABAN 15 MG TABLET PO SCH (08:42)
[2018-07-15] MEDS: FE SULF/FA/VIT B COMP & C TAB PO SCH (08:42)
[2018-07-15] MEDS: MAGNESIUM OXIDE 400 MG TAB PO SCH ×2 (08:42→19:33)
[2018-07-15] MEDS: SOLIFENACIN SUCCIN 5 MG TAB PO SCH (08:43)
[2018-07-15] MEDS: PROMOD 30 ML DOSE PO SCH ×2 (08:43→19:30)
--- NOTE | 2018-07-15 11:12 | FAST ---
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 Rambo De La Rosa M.D. ADMISSION DIAGNOSIS: - Orthopaedic Disorders 08 - Unilateral Hip Fracture (08.11) Left Hip Fracture. EATING: EATING - STEP 1: Does the patient require the assistance of a person or device, or need extra time when eating? Yes. EATING - STEP 2: Does the patient require the assistance of a helper? Yes. EATING - STEP 3: Does the patient perform half or more of the eating tasks? Yes. EATING - STEP 4: Does the patient need only supervision, cuing, coaxing OR help to apply an orthosis OR help to cut fo od, open containers, pour liquids, or butter bread? Yes. EATING - SCORE: 5-SUP GROOMING: Comb/brush hair Oral care GROOMING - STEP 1: Does the patient require the assistance of a person or device, or need extra time when grooming? No. GROOMING - SCORE: 7-IND BATHING: Activity did not occur on this shift BATHING - SCORE: 0-UNK DRESSING - UPPER BODY: T-shirt/pullover shirt (four steps) ARTICLES SCORE Total number of steps: 4 DRESSING - UPPER BODY - STEP 1: Does the patient require help from a person or device, or need extra time when dressing above the [address]? Yes. DRESSING - UPPER BODY - STEP 2: Does the patient require the assistance of a helper? No. Patient only requires an assistive device, s uch as a button hook, velcro, or retail pharmacy merchandiser. OR s/he takes more than reasonable time as s/he dresses the upper body. OR there is a concern for safety when s/he dresses the upper body DRESSING - UPPER BODY - SCORE: 6-SUSANA DRESSING - LOWER BODY: ARTICLES SCORE Total number of steps: 3 DRESSING - LOWER BODY - STEP 1: Does the patient require help from a person or device, or need extra time when dressing below the [address]? Yes. DRESSING - LOWER BODY - STEP 2: Does the patient require the assistance of a helper? No. Patient requires an assistive device such as a retail pharmacy merchandiser. OR s/he takes more than reasonable time as s/he dresses the lower body, OR there is a con cern for safety when s/he dresses the lower body DRESSING - LOWER BODY - SCORE: 6-SUSANA TOILETING: TOILETING - STEP 1: Does the patient require the assistance of a person or device, or need extra time with toileting? Yes . TOILETING - STEP 2: Does the patient require the assistance of a helper? Yes. TOILETING - STEP 3: How much assistance does the patient require from the helper? Hands-on assistance from the helper TOILETING - STEP 4: Of the 3 tasks: 1) Adjusting clothing prior to use, 2) Cleansing of perineal area, 3) Adjusting clot penny after use; How many tasks does the patient perform WITHOUT assistance of the helper? Two tasks TOILETING - SCORE: 3-MOD BLADDER MANAGEMENT: [place] removes incontinent device (Depends, pull ups, etc.); cleans the patient after accident / inco ntinent episode; and, applies new incontinent device. BLADDER MANAGEMENT - SCORE: 1-DEP BLADDER MANAGEMENT - FREQUENCY OF ACCIDENTS: BLADDER MANAGEMENT(FA) - STEP 1: How many accidents has the patient had during the current shift? 3 BOWEL MANAGEMENT: Activity did not occur on this shift BOWEL MANAGEMENT - SCORE: 7-IND TRANSFERS: BED, CHAIR, WHEELCHAIR: TRANSFERS: BED, CHAIR, WHEELCHAIR - STEP 1: Does the patient require assistance of a person or device, or need extra time with bed, chair, or whe elchair transfers? Yes. TRANSFERS: BED, CHAIR, WHEELCHAIR - STEP 2: Does the patient require the assistance of a helper? Yes. TRANSFERS: BED, CHAIR, WHEELCHAIR - STEP 3: How much assistance does the patient require from the helper? Steadying/guiding assistance TRANSFERS: BED, CHAIR, WHEELCHAIR - SCORE: 4-MIN TRANSFERS: TOILET: TRANSFERS: TOILET - STEP 1: Does the patient require the assistance of a person or device, or need extra time with toilet transfe rs? Yes. TRANSFERS: TOILET - STEP 2: Does the patient require the assistance of a helper? Yes. TRANSFERS: TOILET - STEP 3: How much assistance does the patient require from the helper? Patient performs half or more of the tr ansferring tasks TRANSFERS: TOILET - STEP 4: Does the patient need only incidental help such as contact guard or steadying during toilet transfer? Yes. TRANSFERS: TOILET - SCORE: 4-MIN TRANSFERS: SHOWER: Activity did not occur on this shift TRANSFERS: SHOWER - SCORE: 0-UNK TRANSFERS: TUB: Activity did not occur on this shift TRANSFERS: TUB - SCORE: 0-UNK LOCOMOTION: WALK: Activity did not occur on this shift LOCOMOTION: WALK - SCORE: 0-UNK LOCOMOTION: WHEELCHAIR: Activity did not occur on this shift LOCOMOTION: WHEELCHAIR - SCORE: 0-UNK COMPREHENSION: COMPREHENSION: TYPE: Both COMPREHENSION - STEP 1: Does the patient require help from a person or device, or need extra time to understand complex and a bstract ideas (such as current events, finances, discharge planning, medical issues, relationships, e tc)? No. COMPREHENSION - STEP 2: Does the patient need extra time, require an assistive device (such as glasses for visual comprehensi on or a hearing aid for auditory comprehension) or does s/he have mild difficulty understanding compl ex and abstract information? Yes. COMPREHENSION - SCORE: 6-SUSANA EXPRESSION EXPRESSION: TYPE: Both EXPRESSION - STEP 1: Does the patient require help from a person or device, or need extra time expressing complex and abst ract ideas (such as current events, finances, discharge planning, medical issues, relationships, etc) ? No. EXPRESSION - STEP 2: Does the patient need extra time, require an assistive device (such as augmentive communication syste m or a communication board), OR does s/he have mild difficulty expressing complex and abstract ideas (including mild dysarthria or mild word-find problems)? Yes. EXPRESSION - SCORE: 6-SUSANA SOCIAL INTERACTION: SOCIAL INTERACTION - STEP 1: Does the patient require a helper to interact with others in social and therapeutic situations? No. SOCIAL INTERACTION - STEP 2: Does the patient need extra time in social situations, OR does s/he interact with staff, other patien ts, and family members ONLY in structured environments, OR does s/he require medication for social in teraction? Yes, patient needs extra time SOCIAL INTERACTION - SCORE: 6-SUSANA PROBLEM SOLVING: PROBLEM SOLVING - STEP 1: Does the patient need help from a person or device, or need extra time to solve complex problems such as managing a checking account or confronting interpersonal problems? No. PROBLEM SOLVING - STEP 2: Does the patient require extra time to make decisions or solve problems, OR does s/he have slight dif ficulty reading, initiating, or self-correcting in unfamiliar situations? Yes, patient needs extra ti me. PROBLEM SOLVING - SCORE: 6-SUSANA MEMORY: MEMORY - STEP 1: Does the patient need help from a person or device, or need extra time to remember frequently encount ered people, daily routines, and executing requests? No. MEMORY - STEP 2: Does the patient have slight difficulty recognizing frequently encountered people, daily routines, or executing requests without the need for repetition or using self-initiated or environmental cues to remember? Yes. MEMORY - SCORE: 6-SSUANA SIGNATURE PANEL: The following modified sections: Eating - Score, Grooming - Score, Bathing - Score, Dressing - Upper Body - Score, Dressing - Lower Body - Score, Toileting - Score, Bladder Management - Score, Bowel Man agement - Score, Transfers: Bed, Chair, Wheelchair - Score, Transfers: Toilet - Score, Transfers: Rubi wer - Score, Transfers: Tub - Score, Locomotion: Walk - Score, Locomotion: Wheelchair - Score, Compre hension - Score, Expression - Score, Social Interaction - Score, Problem Solving - Score, Memory - Sc ore were [electronically] signed by Julio Marin on MonJul 15 2018 11:11:17 GMT-0500 (Central Daylight Time)
[2018-07-15] MEDS: LIDOCAINE 5% PATCH TOP SCH (11:42)
[2018-07-15] MEDS: NYSTATIN PWDR 100000 UNIT/GM TOP SCH ×2 (11:42→19:33)
[2018-07-15 19:07] LABS: Arterial Blood Carboxyhemoglob 1.8 % (0-1.5); Blood Gas Oxyhemoglobin 95.2 % (94-97); Blood O2 Saturation 97.4 % (92-98.5)
[2018-07-15] MEDS: ALBUTEROL 2.5 MG/3 ML NEB SOL NEB SCH (20:00)
[2018-07-15] MEDS: DOCUSATE NA/SENNA CONC 1 TAB PO SCH (20:35)
[2018-07-15] MEDS: PRAMIPEXOLE 0.25 MG TAB PO SCH (20:35)
[2018-07-16] MEDS: LEVOTHYROXINE SOD 0.075 MG TAB PO SCH (06:45)
[2018-07-16] MEDS: PANTOPRAZOLE 40MG TABLET PO SCH (06:45)
[2018-07-16] MEDS: SOLIFENACIN SUCCIN 5 MG TAB PO SCH (08:00)
[2018-07-16] MEDS: NYSTATIN PWDR 100000 UNIT/GM TOP SCH ×2 (08:00→20:00)
[2018-07-16] MEDS: LIDOCAINE 5% PATCH TOP SCH (08:14)
[2018-07-16] MEDS: MAGNESIUM OXIDE 400 MG TAB PO SCH ×2 (08:15→20:46)
[2018-07-16] MEDS: hydroCHLOROthiazide 25 MG TAB PO SCH (08:15)
[2018-07-16] MEDS: FE SULF/FA/VIT B COMP & C TAB PO SCH (08:15)
[2018-07-16] MEDS: VENLAFAXINE HCL XR 75 MG CAP PO SCH (08:15)
[2018-07-16] MEDS: GABAPENTIN 300 MG CAP PO SCH ×2 (08:15→20:46)
[2018-07-16] MEDS: DULOXETINE 20 MG CAP PO SCH (08:15)
[2018-07-16] MEDS: FERROUS SULFATE 325 MG TAB PO SCH (08:16)
[2018-07-16] MEDS: AMLODIPINE 5 MG TAB PO SCH (08:16)
[2018-07-16] MEDS: LISINOPRIL 20 MG TAB PO SCH (08:16)
[2018-07-16] MEDS: PROMOD 30 ML DOSE PO SCH ×2 (08:17→20:48)
[2018-07-16] MEDS: BACLOFEN 10 MG TAB PO SCH ×2 (08:17→20:46)
[2018-07-16] MEDS: RIVAROXABAN 15 MG TABLET PO SCH (08:18)
[2018-07-16] MEDS: ALBUTEROL 2.5 MG/3 ML NEB SOL NEB SCH ×2 (10:10→20:00)
[2018-07-16] MEDS: ACETAMINOPHEN 500 MG TAB PO PRN (10:19)
[2018-07-16] MEDS: TRAMADOL HCL 50 MG TAB PO PRN ×2 (10:54→20:47)
--- NOTE | 2018-07-16 17:56 | R.PN ---
ENCOUNTER DATE AND TIME: 07/16/2018 17:53 (CDT) NAME LINH SANDS DATE OF : 1935 DATE OF ADMISSION: 07/09/2018 17:51 (VP LAB) Left Hip FractureCHIEF COMPLAINT: Left hip fracture SUBJECTIVE: Pt denied any depression. Pt denied any Shortness of Breath. She had moderate pain in the left hip at rest which was alleviated by MS contin with phenergan in com bination with gabapentin and baclofen. Labs reviewed. Hgb 10.5, prealbumin 13.9. Ambulated 70' with standby assistance using a rolling walker. Self-propelled wheelchair 500' with sta ndby assistance. VITAL SIGNS Temperature: 98 F SBP/DBP: 127/58 Pulse: 70 Resp: 16 MEDICATION ALLERGIES: Codeine ENVIRONMENTAL ALLERGIES: None Known - Substance Allergies None Known - Other Allergies None Known NURSING: - Shower allowing shower - Skin care per protocol PRECAUTIONS: - Posterior Hip Precaution No adduction across midline No external rotation No hip flexion >90 degrees No internal rotation No wheel chair propulsion - Weight Bearing Precaution WBAT left LE ACTIVITIES OOB only with supervision THERAPIES: - Occupational Therapy Evaluate and Treat. - Physical Therapy Evaluate and Treat. PHYSICAL EXAM - Gen Alert and awake Lying in bed No apparent distress Oriented to: person, time, and place - Skin No breakdown No abnormalities - Eyes No abnormalities - ENMT No abnormalities - Neck No abnormalities - CVS RRR - Chest No abnormalities - Resp Clear to auscultation - Abd +bowel sounds - GI Soft Deferred - No abnormalities - Ext Left hip surgical site has good hemostasis. - MSK 4+/5 weakness in left lower extremity - Neuro 4/5 strength left lower extremity. - Psych No abnormalities ASSESSMENT: Pt. is a 83 yo Right-handed white female.On 06/29/2018 she was admitted to [facility] with francesca gnosis Left Hip Fracture.Her impairment category is Orthopaedic Disorders 08 - Unilateral Hip Fractu re (.).Pre-morbidly, Pt. was independent/mod-I in Self-Care, Sphincter Control, Transfers Control , Communication, Social Cognition, and Locomotion; and she had good Sphincter Control.Currently, she has deficits of Self-Care, Transfers Control, Endurance, Balance, Safety Awareness, and Locomotion.Pt . is now referred to [facility] for acute in-patient rehabilitation in order t o maximize patient's functional independence in activities of daily living, strength, ROM, and mobili ty.- Rehab Goal Patient has realistic goal of being discharged at assistance level 6-Radha to reside at Home with Fam wilmer/Relatives. MDM/PLAN: - Physical Therapy Decreased range of motion - to improve, our physical therapists will perform initial evaluation of p t's status upon admission and devise an individualized program for increasing patient's Range of Gianni on. Gait dysfunction - to improve, our physical therapists will perform initial evaluation of pt's statu s upon admission and devise an individualized program for Gait Training, and Wheel Chair mobility Inability to transfer - to improve, our physical therapists will perform initial evaluation of pt's status upon admission and devise an individualized program for Bed mobility Need for home safety evaluation - to improve, our physical therapists will perform initial evaluatio n of pt's status upon admission and devise an individualized program for Home Evaluation Need in caregiver upon discharge - to improve, our physical therapists will perform initial evaluati on of pt's status upon admission and devise an individualized program for Caregiver Training New precaution - to improve, our physical therapists will perform initial evaluation of pt's status upon admission and devise an individualized program for Patient precaution education Poor balance - to improve, our physical therapists will perform initial evaluation of pt's status up on admission and devise an individualized program for Balance Training Poor endurance - to improve, our physical therapists will perform initial evaluation of pt's status upon admission and devise an individualized program for Endurance Training Weakness - to improve, our physical therapists will perform initial evaluation of pt's status upon a dmission and devise an individualized program for Aquatic Therapy, Neuromuscular Reeducation, and Str engthening Achieving independence - to improve, our physical therapists will perform initial evaluation of pt's status upon admission and devise an individualized program for Community Reintegration Activities - Occupational Therapy ADL deficits - to improve, our occupation therapists will perform initial evaluation of pt's status upon admission and devise an individualized program for Bathing, Bed mobility, Community Reintegratio n, Cooking, Dressing, Eating, Fine Motor Skills, Grooming, Homemaking, Kitchen Mobility, Laundry, Pat ient Education, Safety Awareness, Splinting - Positioning, Transfers(Toilet, Tub, Shower), and Wheel Chair Management Need for resident care spec - to improve, our occupation therapists will perform initial evaluation of pt's status upon admission and devise an individualized program for Caregiver Training Weakness - to improve, our occupation therapists will perform initial evaluation of pt's status upon admission and devise an individualized program for Aquatic Therapy, Balance, Endurance, UE ROM, and UE strengthening - Anterior Hip Precaution No abduction No active extension No adduction across midline No external rotation No hip flexion >90 degrees No internal rotation - Diet - Liquid Texture Continue Regular - Tube Feed Continue N/A - Diet Type Continue Regular - Posterior Hip Precaution No adduction across midline No external rotation No hip flexion >90 degrees No internal rotation No wheel chair propulsion - Weight Bearing Precaution WBAT left LE - Skin care per protocol - Diet - Solid Texture Continue Regular - Shower allowing shower FUNCTIONAL STATUS: UPDATED AT WEEKLY TEAM CONFERENCE - Bladder Same accident frequency: 7-Ind - No accidents in the past 7 days - Bowel Same accident frequency: 7-Ind - No accidents in the past 7 days - Walking Same score based on distance walked: 3(>=150ft) FUNCTIONAL STATUS: - Self-Care A. Eating sup B. Grooming sup C. Bathing modA D. Dressing - Upper Maria Isabel E. Dressing - Lower maxA F. Toileting modA - Sphincter Control G: Bladder control Ind H: Bowel control Ind - Transfers Control I. Bed/Chair/Wheelchair Maria Isabel J. Toilet Maria Isabel K. Tub/Shower modA - Locomotion L. Walk/Wheelchair (B) Maria Isabel M. Stairs ADNO - Communication N. Comprehension (B) Radha O. Expression (B) Radha - Social Cognition P. Social Interaction Radha Q. Problem Solving Radha R. Memory Radha - Endurance Fair - Balance Fair - Safety Awareness Fair CURRENT FUNC. DEFICITS: Self-Care, Transfers Control, Endurance, Balance, Safety Awareness, and Locomotion SIGNATURE PANEL: (CDT)
[2018-07-16] MEDS: PRAMIPEXOLE 0.25 MG TAB PO SCH (20:46)
[2018-07-16] MEDS: MELATONIN 3 MG TABLET PO PRN (20:46)
[2018-07-16] MEDS: DOCUSATE NA/SENNA CONC 1 TAB PO SCH (20:48)
--- NOTE | 2018-07-17 02:31 | FAST ---
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 Rambo De La Rosa M.D. ADMISSION DIAGNOSIS: - Orthopaedic Disorders 08 - Unilateral Hip Fracture (08.11) Left Hip Fracture. EATING: Activity did not occur on this shift EATING - SCORE: 0-UNK GROOMING: Oral care Wash, rinse, and dry face Wash, rinse, and dry hands GROOMING - STEP 1: Does the patient require the assistance of a person or device, or need extra time when grooming? Yes. GROOMING - STEP 2: Does the patient require the assistance of a helper? Yes. GROOMING - STEP 3: How much assistance does the patient require from the helper? Only prior equipment preparation/set up from the helper GROOMING - SCORE: 5-SUP BATHING: Activity did not occur on this shift BATHING - SCORE: 0-UNK DRESSING - UPPER BODY: Patient is not dressing in public clothing ARTICLES SCORE Total number of steps: 0 DRESSING - UPPER BODY - SCORE: 0-UNK DRESSING - LOWER BODY: Patient is not dressing in public clothing ARTICLES SCORE Total number of steps: 0 DRESSING - LOWER BODY - SCORE: 0-UNK TOILETING: TOILETING - STEP 1: Does the patient require the assistance of a person or device, or need extra time with toileting? Yes . TOILETING - STEP 2: Does the patient require the assistance of a helper? Yes. TOILETING - STEP 3: How much assistance does the patient require from the helper? Hands-on assistance from the helper TOILETING - STEP 4: Of the 3 tasks: 1) Adjusting clothing prior to use, 2) Cleansing of perineal area, 3) Adjusting clot penny after use; How many tasks does the patient perform WITHOUT assistance of the helper? No tasks; h elper performs all three tasks TOILETING - SCORE: 1-DEP BLADDER MANAGEMENT: [place] removes incontinent device (Depends, pull ups, etc.); cleans the patient after accident / inco ntinent episode; and, applies new incontinent device. BLADDER MANAGEMENT - SCORE: 1-DEP BLADDER MANAGEMENT - FREQUENCY OF ACCIDENTS: BLADDER MANAGEMENT(FA) - STEP 1: How many accidents has the patient had during the current shift? 2 BOWEL MANAGEMENT: Activity did not occur on this shift BOWEL MANAGEMENT - SCORE: 7-IND TRANSFERS: BED, CHAIR, WHEELCHAIR: TRANSFERS: BED, CHAIR, WHEELCHAIR - STEP 1: Does the patient require assistance of a person or device, or need extra time with bed, chair, or whe elchair transfers? Yes. TRANSFERS: BED, CHAIR, WHEELCHAIR - STEP 2: Does the patient require the assistance of a helper? Yes. TRANSFERS: BED, CHAIR, WHEELCHAIR - STEP 3: How much assistance does the patient require from the helper? Lifting of the legs TRANSFERS: BED, CHAIR, WHEELCHAIR - STEP 4: How many legs does the patient require the helper to lift? both legs TRANSFERS: BED, CHAIR, WHEELCHAIR - SCORE: 3-MOD TRANSFERS: TOILET: TRANSFERS: TOILET - STEP 1: Does the patient require the assistance of a person or device, or need extra time with toilet transfe rs? Yes. TRANSFERS: TOILET - STEP 2: Does the patient require the assistance of a helper? Yes. TRANSFERS: TOILET - STEP 3: How much assistance does the patient require from the helper? Patient performs half or more of the tr ansferring tasks TRANSFERS: TOILET - STEP 4: Does the patient need only incidental help such as contact guard or steadying during toilet transfer? No. Patient needs more than incidental help TRANSFERS: TOILET - SCORE: 3-MOD TRANSFERS: SHOWER: Activity did not occur on this shift TRANSFERS: SHOWER - SCORE: 0-UNK TRANSFERS: TUB: Activity did not occur on this shift TRANSFERS: TUB - SCORE: 0-UNK LOCOMOTION: WALK: Activity did not occur on this shift LOCOMOTION: WALK - SCORE: 0-UNK LOCOMOTION: WHEELCHAIR: Activity did not occur on this shift LOCOMOTION: WHEELCHAIR - SCORE: 0-UNK COMPREHENSION: COMPREHENSION: TYPE: Both COMPREHENSION - STEP 1: Does the patient require help from a person or device, or need extra time to understand complex and a bstract ideas (such as current events, finances, discharge planning, medical issues, relationships, e tc)? No. COMPREHENSION - STEP 2: Does the patient need extra time, require an assistive device (such as glasses for visual comprehensi on or a hearing aid for auditory comprehension) or does s/he have mild difficulty understanding compl ex and abstract information? Yes. COMPREHENSION - SCORE: 6-SUSANA EXPRESSION EXPRESSION: TYPE: Both EXPRESSION - STEP 1: Does the patient require help from a person or device, or need extra time expressing complex and abst ract ideas (such as current events, finances, discharge planning, medical issues, relationships, etc) ? No. EXPRESSION - STEP 2: Does the patient need extra time, require an assistive device (such as augmentive communication syste m or a communication board), OR does s/he have mild difficulty expressing complex and abstract ideas (including mild dysarthria or mild word-find problems)? Yes. EXPRESSION - SCORE: 6-SUSANA SOCIAL INTERACTION: SOCIAL INTERACTION - STEP 1: Does the patient require a helper to interact with others in social and therapeutic situations? No. SOCIAL INTERACTION - STEP 2: Does the patient need extra time in social situations, OR does s/he interact with staff, other patien ts, and family members ONLY in structured environments, OR does s/he require medication for social in teraction? Yes, patient requires medication for social interaction SOCIAL INTERACTION - SCORE: 6-SUSANA PROBLEM SOLVING: PROBLEM SOLVING - STEP 1: Does the patient need help from a person or device, or need extra time to solve complex problems such as managing a checking account or confronting interpersonal problems? No. PROBLEM SOLVING - STEP 2: Does the patient require extra time to make decisions or solve problems, OR does s/he have slight dif ficulty reading, initiating, or self-correcting in unfamiliar situations? Yes, patient needs extra ti me. PROBLEM SOLVING - SCORE: 6-SUSANA MEMORY: MEMORY - STEP 1: Does the patient need help from a person or device, or need extra time to remember frequently encount ered people, daily routines, and executing requests? No. MEMORY - STEP 2: Does the patient have slight difficulty recognizing frequently encountered people, daily routines, or executing requests without the need for repetition or using self-initiated or environmental cues to remember? Yes. MEMORY - SCORE: 6-SUSANA
[2018-07-17] MEDS: LEVOTHYROXINE SOD 0.075 MG TAB PO SCH (06:28)
[2018-07-17] MEDS: PANTOPRAZOLE 40MG TABLET PO SCH (06:28)
[2018-07-17] MEDS: ALBUTEROL 2.5 MG/3 ML NEB SOL NEB SCH ×2 (07:55→20:00)
[2018-07-17] MEDS: NYSTATIN PWDR 100000 UNIT/GM TOP SCH ×2 (08:00→19:35)
[2018-07-17] MEDS: LIDOCAINE 5% PATCH TOP SCH (08:50)
[2018-07-17] MEDS: ACETAMINOPHEN 500 MG TAB PO PRN (08:51)
[2018-07-17] MEDS: AMLODIPINE 5 MG TAB PO SCH (08:51)
[2018-07-17] MEDS: hydroCHLOROthiazide 25 MG TAB PO SCH (08:51)
[2018-07-17] MEDS: MAGNESIUM OXIDE 400 MG TAB PO SCH ×2 (08:51→19:34)
[2018-07-17] MEDS: DULOXETINE 20 MG CAP PO SCH (08:52)
[2018-07-17] MEDS: GABAPENTIN 300 MG CAP PO SCH ×2 (08:52→19:34)
[2018-07-17] MEDS: FE SULF/FA/VIT B COMP & C TAB PO SCH (08:52)
[2018-07-17] MEDS: VENLAFAXINE HCL XR 75 MG CAP PO SCH (08:52)
[2018-07-17] MEDS: FERROUS SULFATE 325 MG TAB PO SCH (08:52)
[2018-07-17] MEDS: CRANBERRY FRUIT EXTRACT 200 MG CAP PO SCH ×2 (08:52→19:34)
[2018-07-17] MEDS: LISINOPRIL 20 MG TAB PO SCH (08:52)
[2018-07-17] MEDS: RIVAROXABAN 15 MG TABLET PO SCH (08:53)
[2018-07-17] MEDS: BACLOFEN 10 MG TAB PO SCH ×2 (08:53→19:34)
[2018-07-17] MEDS: SOLIFENACIN SUCCIN 5 MG TAB PO SCH (08:53)
[2018-07-17] MEDS: PROMOD 30 ML DOSE PO SCH ×2 (08:55→19:35)
[2018-07-17] MEDS: TRAMADOL HCL 50 MG TAB PO PRN ×2 (12:28→20:15)
--- NOTE | 2018-07-17 14:53 | FAST ---
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 Rambo De La Rosa M.D. ADMISSION DIAGNOSIS: - Orthopaedic Disorders 08 - Unilateral Hip Fracture (08.11) Left Hip Fracture. EATING: Activity did not occur on this shift EATING - SCORE: 0-UNK GROOMING: Activity did not occur on this shift GROOMING - SCORE: 0-UNK BATHING: Activity did not occur on this shift BATHING - SCORE: 0-UNK DRESSING - UPPER BODY: Activity did not occur on this shift Patient is not dressing in public clothing ARTICLES SCORE Total number of steps: 0 DRESSING - UPPER BODY - SCORE: 0-UNK DRESSING - LOWER BODY: Activity did not occur on this shift Patient is not dressing in public clothing ARTICLES SCORE Total number of steps: 0 DRESSING - LOWER BODY - SCORE: 0-UNK TOILETING: Activity did not occur on this shift TOILETING - SCORE: 0-UNK BLADDER MANAGEMENT: Activity did not occur on this shift BLADDER MANAGEMENT - SCORE: 7-IND BOWEL MANAGEMENT: Activity did not occur on this shift BOWEL MANAGEMENT - SCORE: 7-IND TRANSFERS: BED, CHAIR, WHEELCHAIR: TRANSFERS: BED, CHAIR, WHEELCHAIR - STEP 1: Does the patient require assistance of a person or device, or need extra time with bed, chair, or whe elchair transfers? Yes. TRANSFERS: BED, CHAIR, WHEELCHAIR - STEP 2: Does the patient require the assistance of a helper? Yes. TRANSFERS: BED, CHAIR, WHEELCHAIR - STEP 3: How much assistance does the patient require from the helper? Steadying/guiding assistance TRANSFERS: BED, CHAIR, WHEELCHAIR - SCORE: 4-MIN TRANSFERS: TOILET: Activity did not occur on this shift TRANSFERS: TOILET - SCORE: 0-UNK TRANSFERS: SHOWER: Activity did not occur on this shift TRANSFERS: SHOWER - SCORE: 0-UNK TRANSFERS: TUB: Activity did not occur on this shift TRANSFERS: TUB - SCORE: 0-UNK LOCOMOTION: WALK: LOCOMOTION: WALK - STEP 1: Does the patient need help from a person or device, or need extra time to walk 150 feet? Yes. LOCOMOTION: WALK - STEP 2: How much assistance does the patient require to walk a minimum of 150 feet? Patient walks less than 1 50 feet - but more than 50 feet - with the assistance of only one helper LOCOMOTION: WALK - SCORE: 2-MAX LOCOMOTION: WHEELCHAIR: LOCOMOTION: WHEELCHAIR - STEP 1: Does the patient need help to go 150 feet in a wheelchair? No. LOCOMOTION: WHEELCHAIR - SCORE: 6-SUSANA LOCOMOTION: STAIRS: Activity did not occur on this shift LOCOMOTION: STAIRS - SCORE: 0-UNK COMPREHENSION: COMPREHENSION - SCORE: 0-UNK EXPRESSION EXPRESSION - SCORE: 0-UNK SOCIAL INTERACTION: SOCIAL INTERACTION - SCORE: 0-UNK PROBLEM SOLVING: PROBLEM SOLVING - SCORE: 0-UNK MEMORY: MEMORY - SCORE: 0-UNK SIGNATURE PANEL: The following modified sections: Transfers: Bed, Chair, Wheelchair - Score, Transfers: Toilet - Score , Locomotion: Walk - Score, Locomotion: Wheelchair - Score, Locomotion: Stairs - Score were [adolfo ayon] signed by Roberto Sumner PTA on MonJul 17 2018 14:52:20 T-0500 (Central Daylight Time)
--- NOTE | 2018-07-17 14:57 | FAST ---
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 Rambo De La Rsoa M.D. ADMISSION DIAGNOSIS: - Orthopaedic Disorders 08 - Unilateral Hip Fracture (08.11) Left Hip Fracture. EATING: Activity did not occur on this shift EATING - SCORE: 0-UNK GROOMING: Activity did not occur on this shift GROOMING - SCORE: 0-UNK BATHING: Activity did not occur on this shift BATHING - SCORE: 0-UNK DRESSING - UPPER BODY: Activity did not occur on this shift Patient is not dressing in public clothing ARTICLES SCORE Total number of steps: 0 DRESSING - UPPER BODY - SCORE: 0-UNK DRESSING - LOWER BODY: Activity did not occur on this shift Patient is not dressing in public clothing ARTICLES SCORE Total number of steps: 0 DRESSING - LOWER BODY - SCORE: 0-UNK TOILETING: Activity did not occur on this shift TOILETING - SCORE: 0-UNK BLADDER MANAGEMENT: Activity did not occur on this shift BLADDER MANAGEMENT - SCORE: 7-IND BOWEL MANAGEMENT: Activity did not occur on this shift BOWEL MANAGEMENT - SCORE: 7-IND TRANSFERS: BED, CHAIR, WHEELCHAIR: TRANSFERS: BED, CHAIR, WHEELCHAIR - STEP 1: Does the patient require assistance of a person or device, or need extra time with bed, chair, or whe elchair transfers? Yes. TRANSFERS: BED, CHAIR, WHEELCHAIR - STEP 2: Does the patient require the assistance of a helper? Yes. TRANSFERS: BED, CHAIR, WHEELCHAIR - STEP 3: How much assistance does the patient require from the helper? Steadying/guiding assistance TRANSFERS: BED, CHAIR, WHEELCHAIR - SCORE: 4-MIN TRANSFERS: TOILET: Activity did not occur on this shift TRANSFERS: TOILET - SCORE: 0-UNK TRANSFERS: SHOWER: Activity did not occur on this shift TRANSFERS: SHOWER - SCORE: 0-UNK TRANSFERS: TUB: Activity did not occur on this shift TRANSFERS: TUB - SCORE: 0-UNK LOCOMOTION: WALK: LOCOMOTION: WALK - STEP 1: Does the patient need help from a person or device, or need extra time to walk 150 feet? Yes. LOCOMOTION: WALK - STEP 2: How much assistance does the patient require to walk a minimum of 150 feet? Patient walks less than 1 50 feet - but more than 50 feet - with the assistance of only one helper LOCOMOTION: WALK - SCORE: 2-MAX LOCOMOTION: WHEELCHAIR: LOCOMOTION: WHEELCHAIR - STEP 1: Does the patient need help to go 150 feet in a wheelchair? Yes. LOCOMOTION: WHEELCHAIR - STEP 2: How much assistance does the patient need from the helper? Only supervision, cuing, or coaxing LOCOMOTION: WHEELCHAIR - SCORE: 5-SUP LOCOMOTION: STAIRS: Activity did not occur on this shift LOCOMOTION: STAIRS - SCORE: 0-UNK COMPREHENSION: COMPREHENSION - SCORE: 0-UNK EXPRESSION EXPRESSION - SCORE: 0-UNK SOCIAL INTERACTION: SOCIAL INTERACTION - SCORE: 0-UNK PROBLEM SOLVING: PROBLEM SOLVING - SCORE: 0-UNK MEMORY: MEMORY - SCORE: 0-UNK SIGNATURE PANEL: The following modified sections: Transfers: Bed, Chair, Wheelchair - Score, Transfers: Toilet - Score , Locomotion: Walk - Score, Locomotion: Wheelchair - Score, Locomotion: Stairs - Score were [electron gabo] signed by Roberto Sumner PTA on MonJul 17 2018 14:56:49 GMT-0500 (Central Daylight Time)
--- NOTE | 2018-07-17 15:33 | FAST ---
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 Rambo De La Rosa M.D. ADMISSION DIAGNOSIS: - Orthopaedic Disorders 08 - Unilateral Hip Fracture (08.11) Left Hip Fracture. EATING: EATING - STEP 1: Does the patient require the assistance of a person or device, or need extra time when eating? Yes. EATING - STEP 2: Does the patient require the assistance of a helper? Yes. EATING - STEP 3: Does the patient perform half or more of the eating tasks? Yes. EATING - STEP 4: Does the patient need only supervision, cuing, coaxing OR help to apply an orthosis OR help to cut fo od, open containers, pour liquids, or butter bread? Yes. EATING - SCORE: 5-SUP GROOMING: Comb/brush hair Oral care Wash, rinse, and dry face Wash, rinse, and dry hands GROOMING - STEP 1: Does the patient require the assistance of a person or device, or need extra time when grooming? Yes. GROOMING - STEP 2: Does the patient require the assistance of a helper? Yes. GROOMING - STEP 3: How much assistance does the patient require from the helper? Cuing, coaxing, instructions, or encour agement for completion of grooming GROOMING - SCORE: 5-SUP BATHING: Activity did not occur on this shift BATHING - SCORE: 0-UNK DRESSING - UPPER BODY: T-shirt/pullover shirt (four steps) ARTICLES SCORE Total number of steps: 4 DRESSING - UPPER BODY - STEP 1: Does the patient require help from a person or device, or need extra time when dressing above the [address]? Yes. DRESSING - UPPER BODY - STEP 2: Does the patient require the assistance of a helper? Yes. DRESSING - UPPER BODY - STEP 3: Does the helper touch the patient while dressing? No. DRESSING - UPPER BODY - SCORE: 5-SUP DRESSING - LOWER BODY: Elastic waist pants (three steps) Sock - Left foot (one step) Sock - Right foot (one step) Tied or buckled shoe - Left foot (two steps) Tied or buckled shoe - Right foot (two steps) Underwear (three steps) ARTICLES SCORE Total number of steps: 12 DRESSING - LOWER BODY - STEP 1: Does the patient require help from a person or device, or need extra time when dressing below the [address]? Yes. DRESSING - LOWER BODY - STEP 2: Does the patient require the assistance of a helper? Yes. DRESSING - LOWER BODY - STEP 3: Does the helper touch the patient while dressing? No. DRESSING - LOWER BODY - SCORE: 5-SUP TOILETING: TOILETING - STEP 1: Does the patient require the assistance of a person or device, or need extra time with toileting? Yes . TOILETING - STEP 2: Does the patient require the assistance of a helper? Yes. TOILETING - STEP 3: How much assistance does the patient require from the helper? Hands-on assistance from the helper TOILETING - STEP 4: Of the 3 tasks: 1) Adjusting clothing prior to use, 2) Cleansing of perineal area, 3) Adjusting clot penny after use; How many tasks does the patient perform WITHOUT assistance of the helper? Two tasks TOILETING - SCORE: 3-MOD BLADDER MANAGEMENT: [place] removes incontinent device (Depends, pull ups, etc.); cleans the patient after accident / inco ntinent episode; and, applies new incontinent device. BLADDER MANAGEMENT - SCORE: 1-DEP BLADDER MANAGEMENT - FREQUENCY OF ACCIDENTS: BLADDER MANAGEMENT(FA) - STEP 1: How many accidents has the patient had during the current shift? 4 BOWEL MANAGEMENT: Activity did not occur on this shift BOWEL MANAGEMENT - SCORE: 7-IND BOWEL MANAGEMENT - FREQUENCY OF ACCIDENTS: BOWEL MANAGEMENT(FA) - STEP 1: How many accidents has the patient had during the current shift? 0 TRANSFERS: BED, CHAIR, WHEELCHAIR: TRANSFERS: BED, CHAIR, WHEELCHAIR - STEP 1: Does the patient require assistance of a person or device, or need extra time with bed, chair, or whe elchair transfers? Yes. TRANSFERS: BED, CHAIR, WHEELCHAIR - STEP 2: Does the patient require the assistance of a helper? Yes. TRANSFERS: BED, CHAIR, WHEELCHAIR - STEP 3: How much assistance does the patient require from the helper? Lifting of the legs TRANSFERS: BED, CHAIR, WHEELCHAIR - STEP 4: How many legs does the patient require the helper to lift? both legs TRANSFERS: BED, CHAIR, WHEELCHAIR - SCORE: 3-MOD TRANSFERS: TOILET: TRANSFERS: TOILET - STEP 1: Does the patient require the assistance of a person or device, or need extra time with toilet transfe rs? Yes. TRANSFERS: TOILET - STEP 2: Does the patient require the assistance of a helper? Yes. TRANSFERS: TOILET - STEP 3: How much assistance does the patient require from the helper? Patient performs half or more of the tr ansferring tasks TRANSFERS: TOILET - STEP 4: Does the patient need only incidental help such as contact guard or steadying during toilet transfer? Yes. TRANSFERS: TOILET - SCORE: 4-MIN TRANSFERS: SHOWER: Activity did not occur on this shift TRANSFERS: SHOWER - SCORE: 0-UNK TRANSFERS: TUB: Activity did not occur on this shift TRANSFERS: TUB - SCORE: 0-UNK LOCOMOTION: WALK: Activity did not occur on this shift LOCOMOTION: WALK - SCORE: 0-UNK LOCOMOTION: WHEELCHAIR: LOCOMOTION: WHEELCHAIR - STEP 1: Does the patient need help to go 150 feet in a wheelchair? Yes. LOCOMOTION: WHEELCHAIR - STEP 2: How much assistance does the patient need from the helper? Only incidental help such as around corner s or over thresholds LOCOMOTION: WHEELCHAIR - SCORE: 4-MIN COMPREHENSION: COMPREHENSION: TYPE: Both COMPREHENSION - STEP 1: Does the patient require help from a person or device, or need extra time to understand complex and a bstract ideas (such as current events, finances, discharge planning, medical issues, relationships, e tc)? Yes. COMPREHENSION - STEP 2: Does the patient require help to understand questions or statements about basic needs or ideas (such as hunger, thirst, sleep, safety, daily schedule, room location, or discomfort) half or more of the t meche? No. COMPREHENSION - STEP 3: How often does the patient need help to understand directions and conversation about basic needs? 10% - 24% of the time COMPREHENSION - SCORE: 4-MIN EXPRESSION EXPRESSION: TYPE: Both EXPRESSION - STEP 1: Does the patient require help from a person or device, or need extra time expressing complex and abst ract ideas (such as current events, finances, discharge planning, medical issues, relationships, etc) ? Yes. EXPRESSION - STEP 2: Does the patient require help to express basic necessities or ideas (such as hunger, thirst, sleep, s afety, daily schedule, room location, or discomfort) half or more of the time? No. EXPRESSION - STEP 3: How often does the patient need help to express directions and conversation about basic needs? 10-24% of the time EXPRESSION - SCORE: 4-MIN SOCIAL INTERACTION: SOCIAL INTERACTION - STEP 1: Does the patient require a helper to interact with others in social and therapeutic situations? No. SOCIAL INTERACTION - STEP 2: Does the patient need extra time in social situations, OR does s/he interact with staff, other patien ts, and family members ONLY in structured environments, OR does s/he require medication for social in teraction? No. SOCIAL INTERACTION - SCORE: 7-IND PROBLEM SOLVING: PROBLEM SOLVING - STEP 1: Does the patient need help from a person or device, or need extra time to solve complex problems such as managing a checking account or confronting interpersonal problems? Yes. PROBLEM SOLVING - STEP 2: Does the patient solve basic routine problems half or more of the time? Yes. PROBLEM SOLVING - STEP 3: How often does the patient need help to solve basic routine problems? 10%-24% of the time PROBLEM SOLVING - SCORE: 4-MIN MEMORY: MEMORY - STEP 1: Does the patient need help from a person or device, or need extra time to remember frequently encount ered people, daily routines, and executing requests? Yes. MEMORY - STEP 2: How often does the patient need help to remember frequently encountered people, daily routines, and e xecuting requests? 10% - 24% of the time MEMORY - SCORE: 4-MIN SIGNATURE PANEL: The following modified sections: Eating - Score, Grooming - Score, Bathing - Score, Dressing - Upper Body - Score, Dressing - Lower Body - Score, Toileting - Score, Bladder Management - Score, Bowel Man agement - Score, Transfers: Bed, Chair, Wheelchair - Score, Transfers: Toilet - Score, Transfers: Rubi wer - Score, Transfers: Tub - Score, Locomotion: Walk - Score, Locomotion: Wheelchair - Score, Compre hension - Score, Expression - Score, Social Interaction - Score, Problem Solving - Score, Memory - Sc ore were [electronically] signed by Lillian Colby C.N.A. on MonJul 17 2018 15:33:16 T-0500 (Centra l Daylight Time)
[2018-07-17] MEDS: PRAMIPEXOLE 0.25 MG TAB PO SCH (20:16)
[2018-07-17] MEDS: MELATONIN 3 MG TABLET PO PRN (20:16)
[2018-07-17] MEDS: DOCUSATE NA/SENNA CONC 1 TAB PO SCH (20:16)
--- NOTE | 2018-07-18 01:45 | FAST ---
SHIFT START DATE/TIME: 07/17/2018 19:00 (CDT) SHIFT END DATE/TIME: 07/18/2018 07:00 (CDT) NAME LINH SANDS DATE OF : 1935 DATE OF ADMISSION: 07/09/2018 17:51 (IRON HANDLER) PHONE: AGE: 83 SSN# [id number] GENDER: Female ENCOUNTER PHYSICIAN: Dr. Rambo De La Rosa M.D. ADMISSION DIAGNOSIS: - Orthopaedic Disorders 08 - Unilateral Hip Fracture (08.11) Left Hip Fracture. EATING: Activity did not occur on this shift EATING - SCORE: 0-UNK GROOMING: Activity did not occur on this shift GROOMING - SCORE: 0-UNK BATHING: Activity did not occur on this shift BATHING - SCORE: 0-UNK DRESSING - UPPER BODY: Patient is not dressing in public clothing ARTICLES SCORE Total number of steps: 0 DRESSING - UPPER BODY - SCORE: 0-UNK DRESSING - LOWER BODY: Patient is not dressing in public clothing ARTICLES SCORE Total number of steps: 0 DRESSING - LOWER BODY - SCORE: 0-UNK TOILETING: TOILETING - STEP 1: Does the patient require the assistance of a person or device, or need extra time with toileting? Yes . TOILETING - STEP 2: Does the patient require the assistance of a helper? Yes. TOILETING - STEP 3: How much assistance does the patient require from the helper? Hands-on assistance from the helper TOILETING - STEP 4: Of the 3 tasks: 1) Adjusting clothing prior to use, 2) Cleansing of perineal area, 3) Adjusting clot penny after use; How many tasks does the patient perform WITHOUT assistance of the helper? No tasks; h elper performs all three tasks TOILETING - SCORE: 1-DEP BLADDER MANAGEMENT: [place] removes incontinent device (Depends, pull ups, etc.); cleans the patient after accident / inco ntinent episode; and, applies new incontinent device. BLADDER MANAGEMENT - SCORE: 1-DEP BLADDER MANAGEMENT - FREQUENCY OF ACCIDENTS: BLADDER MANAGEMENT(FA) - STEP 1: How many accidents has the patient had during the current shift? 1 BOWEL MANAGEMENT: Activity did not occur on this shift BOWEL MANAGEMENT - SCORE: 7-IND TRANSFERS: BED, CHAIR, WHEELCHAIR: Patient requires more than one helper and/or the use of a mechanical lift is utilized TRANSFERS: BED, CHAIR, WHEELCHAIR - SCORE: 1-DEP TRANSFERS: TOILET: Patient requires more than one helper and/or the use of a mechanical lift is utilized TRANSFERS: TOILET - SCORE: 1-DEP TRANSFERS: SHOWER: Activity did not occur on this shift TRANSFERS: SHOWER - SCORE: 0-UNK TRANSFERS: TUB: Activity did not occur on this shift TRANSFERS: TUB - SCORE: 0-UNK LOCOMOTION: WALK: Activity did not occur on this shift LOCOMOTION: WALK - SCORE: 0-UNK LOCOMOTION: WHEELCHAIR: Activity did not occur on this shift LOCOMOTION: WHEELCHAIR - SCORE: 0-UNK COMPREHENSION: COMPREHENSION: TYPE: Both COMPREHENSION - STEP 1: Does the patient require help from a person or device, or need extra time to understand complex and a bstract ideas (such as current events, finances, discharge planning, medical issues, relationships, e tc)? Yes. COMPREHENSION - STEP 2: Does the patient require help to understand questions or statements about basic needs or ideas (such as hunger, thirst, sleep, safety, daily schedule, room location, or discomfort) half or more of the t meche? No. COMPREHENSION - STEP 3: How often does the patient need help to understand directions and conversation about basic needs? 10% - 24% of the time COMPREHENSION - SCORE: 4-MIN EXPRESSION EXPRESSION: TYPE: Both EXPRESSION - STEP 1: Does the patient require help from a person or device, or need extra time expressing complex and abst ract ideas (such as current events, finances, discharge planning, medical issues, relationships, etc) ? Yes. EXPRESSION - STEP 2: Does the patient require help to express basic necessities or ideas (such as hunger, thirst, sleep, s afety, daily schedule, room location, or discomfort) half or more of the time? No. EXPRESSION - STEP 3: How often does the patient need help to express directions and conversation about basic needs? 10-24% of the time EXPRESSION - SCORE: 4-MIN SOCIAL INTERACTION: SOCIAL INTERACTION - STEP 1: Does the patient require a helper to interact with others in social and therapeutic situations? No. SOCIAL INTERACTION - STEP 2: Does the patient need extra time in social situations, OR does s/he interact with staff, other patien ts, and family members ONLY in structured environments, OR does s/he require medication for social in teraction? Yes, patient requires medication for social interaction SOCIAL INTERACTION - SCORE: 6-SUSANA PROBLEM SOLVING: PROBLEM SOLVING - STEP 1: Does the patient need help from a person or device, or need extra time to solve complex problems such as managing a checking account or confronting interpersonal problems? Yes. PROBLEM SOLVING - STEP 2: Does the patient solve basic routine problems half or more of the time? Yes. PROBLEM SOLVING - STEP 3: How often does the patient need help to solve basic routine problems? 10%-24% of the time PROBLEM SOLVING - SCORE: 4-MIN MEMORY: MEMORY - STEP 1: Does the patient need help from a person or device, or need extra time to remember frequently encount ered people, daily routines, and executing requests? No. MEMORY - STEP 2: Does the patient have slight difficulty recognizing frequently encountered people, daily routines, or executing requests without the need for repetition or using self-initiated or environmental cues to remember? No. MEMORY - SCORE: 7-IND SIGNATURE PANEL: The following modified sections: Eating - Score, Grooming - Score, Bathing - Score, Dressing - Upper Body - Score, Dressing - Lower Body - Score, Toileting - Score, Bladder Management - Score, Bowel Man agement - Score, Transfers: Bed, Chair, Wheelchair - Score, Transfers: Toilet - Score, Transfers: Rubi wer - Score, Transfers: Tub - Score, Locomotion: Walk - Score, Locomotion: Wheelchair - Score, Compre hension - Score, Expression - Score, Social Interaction - Score, Problem Solving - Score, Memory - Sc ore were [electronically] signed by Jody Lee CNA on MonJul 18 2018 01:43:37 T-0500 ([facility] Time)
[2018-07-18] MEDS: LEVOTHYROXINE SOD 0.075 MG TAB PO SCH (07:00)
[2018-07-18] MEDS: PANTOPRAZOLE 40MG TABLET PO SCH (07:00)
[2018-07-18] MEDS: TRAMADOL HCL 50 MG TAB PO PRN ×2 (07:01→17:43)
[2018-07-18] MEDS: ALBUTEROL 2.5 MG/3 ML NEB SOL NEB SCH ×2 (07:30→20:00)
[2018-07-18] MEDS: DULOXETINE 20 MG CAP PO SCH (08:42)
[2018-07-18] MEDS: VENLAFAXINE HCL XR 75 MG CAP PO SCH (08:42)
[2018-07-18] MEDS: GABAPENTIN 300 MG CAP PO SCH ×2 (08:43→19:39)
[2018-07-18] MEDS: MAGNESIUM OXIDE 400 MG TAB PO SCH ×2 (08:43→19:39)
[2018-07-18] MEDS: SOLIFENACIN SUCCIN 5 MG TAB PO SCH (08:43)
[2018-07-18] MEDS: RIVAROXABAN 15 MG TABLET PO SCH (08:43)
[2018-07-18] MEDS: AMLODIPINE 5 MG TAB PO SCH (08:43)
[2018-07-18] MEDS: CRANBERRY FRUIT EXTRACT 200 MG CAP PO SCH ×2 (08:43→19:38)
[2018-07-18] MEDS: hydroCHLOROthiazide 25 MG TAB PO SCH (08:44)
[2018-07-18] MEDS: FE SULF/FA/VIT B COMP & C TAB PO SCH (08:44)
[2018-07-18] MEDS: FERROUS SULFATE 325 MG TAB PO SCH (08:45)
[2018-07-18] MEDS: BACLOFEN 10 MG TAB PO SCH ×2 (08:45→19:39)
[2018-07-18] MEDS: LISINOPRIL 20 MG TAB PO SCH (08:45)
[2018-07-18] MEDS: PROMOD 30 ML DOSE PO SCH ×2 (08:46→19:40)
[2018-07-18] MEDS: LIDOCAINE 5% PATCH TOP SCH (10:48)
[2018-07-18] MEDS: NYSTATIN PWDR 100000 UNIT/GM TOP SCH ×2 (10:48→19:39)
--- NOTE | 2018-07-18 15:08 | FAST ---
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 Rambo De La Rosa M.D. ADMISSION DIAGNOSIS: - Orthopaedic Disorders 08 - Unilateral Hip Fracture (08.11) Left Hip Fracture. EATING: EATING - STEP 1: Does the patient require the assistance of a person or device, or need extra time when eating? Yes. EATING - STEP 2: Does the patient require the assistance of a helper? Yes. EATING - STEP 3: Does the patient perform half or more of the eating tasks? Yes. EATING - STEP 4: Does the patient need only supervision, cuing, coaxing OR help to apply an orthosis OR help to cut fo od, open containers, pour liquids, or butter bread? Yes. EATING - SCORE: 5-SUP GROOMING: Comb/brush hair Oral care GROOMING - STEP 1: Does the patient require the assistance of a person or device, or need extra time when grooming? Yes. GROOMING - STEP 2: Does the patient require the assistance of a helper? No. The patient only requires an assistive devic e, OR takes more than reasonable time to groom, OR there is a concern for safety as the patient groom s GROOMING - SCORE: 6-SUSANA BATHING: Activity did not occur on this shift BATHING - SCORE: 0-UNK DRESSING - UPPER BODY: Activity did not occur on this shift ARTICLES SCORE Total number of steps: 0 DRESSING - UPPER BODY - SCORE: 0-UNK DRESSING - LOWER BODY: Activity did not occur on this shift ARTICLES SCORE Total number of steps: 0 DRESSING - LOWER BODY - SCORE: 0-UNK TOILETING: TOILETING - STEP 1: Does the patient require the assistance of a person or device, or need extra time with toileting? Yes . TOILETING - STEP 2: Does the patient require the assistance of a helper? Yes. TOILETING - STEP 3: How much assistance does the patient require from the helper? Hands-on assistance from the helper TOILETING - STEP 4: Of the 3 tasks: 1) Adjusting clothing prior to use, 2) Cleansing of perineal area, 3) Adjusting clot penny after use; How many tasks does the patient perform WITHOUT assistance of the helper? Two tasks TOILETING - SCORE: 3-MOD BLADDER MANAGEMENT: [place] removes incontinent device (Depends, pull ups, etc.); cleans the patient after accident / inco ntinent episode; and, applies new incontinent device. BLADDER MANAGEMENT - SCORE: 1-DEP BLADDER MANAGEMENT - FREQUENCY OF ACCIDENTS: BLADDER MANAGEMENT(FA) - STEP 1: How many accidents has the patient had during the current shift? 2 BOWEL MANAGEMENT: Activity did not occur on this shift BOWEL MANAGEMENT - SCORE: 7-IND TRANSFERS: BED, CHAIR, WHEELCHAIR: TRANSFERS: BED, CHAIR, WHEELCHAIR - STEP 1: Does the patient require assistance of a person or device, or need extra time with bed, chair, or whe elchair transfers? Yes. TRANSFERS: BED, CHAIR, WHEELCHAIR - STEP 2: Does the patient require the assistance of a helper? Yes. TRANSFERS: BED, CHAIR, WHEELCHAIR - STEP 3: How much assistance does the patient require from the helper? Steadying/guiding assistance TRANSFERS: BED, CHAIR, WHEELCHAIR - SCORE: 4-MIN TRANSFERS: TOILET: TRANSFERS: TOILET - STEP 1: Does the patient require the assistance of a person or device, or need extra time with toilet transfe rs? Yes. TRANSFERS: TOILET - STEP 2: Does the patient require the assistance of a helper? Yes. TRANSFERS: TOILET - STEP 3: How much assistance does the patient require from the helper? Patient performs half or more of the tr ansferring tasks TRANSFERS: TOILET - STEP 4: Does the patient need only incidental help such as contact guard or steadying during toilet transfer? No. Patient needs more than incidental help TRANSFERS: TOILET - SCORE: 3-MOD TRANSFERS: SHOWER: Activity did not occur on this shift TRANSFERS: SHOWER - SCORE: 0-UNK TRANSFERS: TUB: Activity did not occur on this shift TRANSFERS: TUB - SCORE: 0-UNK LOCOMOTION: WALK: Activity did not occur on this shift LOCOMOTION: WALK - SCORE: 0-UNK LOCOMOTION: WHEELCHAIR: Activity did not occur on this shift LOCOMOTION: WHEELCHAIR - SCORE: 0-UNK COMPREHENSION: COMPREHENSION: TYPE: Both COMPREHENSION - STEP 1: Does the patient require help from a person or device, or need extra time to understand complex and a bstract ideas (such as current events, finances, discharge planning, medical issues, relationships, e tc)? No. COMPREHENSION - STEP 2: Does the patient need extra time, require an assistive device (such as glasses for visual comprehensi on or a hearing aid for auditory comprehension) or does s/he have mild difficulty understanding compl ex and abstract information? Yes. COMPREHENSION - SCORE: 6-SUSANA EXPRESSION EXPRESSION: TYPE: Both EXPRESSION - STEP 1: Does the patient require help from a person or device, or need extra time expressing complex and abst ract ideas (such as current events, finances, discharge planning, medical issues, relationships, etc) ? No. EXPRESSION - STEP 2: Does the patient need extra time, require an assistive device (such as augmentive communication syste m or a communication board), OR does s/he have mild difficulty expressing complex and abstract ideas (including mild dysarthria or mild word-find problems)? Yes. EXPRESSION - SCORE: 6-SUSANA SOCIAL INTERACTION: SOCIAL INTERACTION - STEP 1: Does the patient require a helper to interact with others in social and therapeutic situations? No. SOCIAL INTERACTION - STEP 2: Does the patient need extra time in social situations, OR does s/he interact with staff, other patien ts, and family members ONLY in structured environments, OR does s/he require medication for social in teraction? Yes, patient needs extra time SOCIAL INTERACTION - SCORE: 6-SUSANA PROBLEM SOLVING: PROBLEM SOLVING - STEP 1: Does the patient need help from a person or device, or need extra time to solve complex problems such as managing a checking account or confronting interpersonal problems? No. PROBLEM SOLVING - STEP 2: Does the patient require extra time to make decisions or solve problems, OR does s/he have slight dif ficulty reading, initiating, or self-correcting in unfamiliar situations? Yes, patient needs extra ti me. PROBLEM SOLVING - SCORE: 6-SUSANA MEMORY: MEMORY - STEP 1: Does the patient need help from a person or device, or need extra time to remember frequently encount ered people, daily routines, and executing requests? No. MEMORY - STEP 2: Does the patient have slight difficulty recognizing frequently encountered people, daily routines, or executing requests without the need for repetition or using self-initiated or environmental cues to remember? Yes. MEMORY - SCORE: 6-SUSANA SIGNATURE PANEL: The following modified sections: Eating - Score, Grooming - Score, Bathing - Score, Dressing - Upper Body - Score, Dressing - Lower Body - Score, Toileting - Score, Bladder Management - Score, Bowel Man agement - Score, Transfers: Bed, Chair, Wheelchair - Score, Transfers: Toilet - Score, Transfers: Rubi wer - Score, Transfers: Tub - Score, Locomotion: Walk - Score, Locomotion: Wheelchair - Score, Compre hension - Score, Expression - Score, Social Interaction - Score, Problem Solving - Score, Memory - Sc ore were [electronically] signed by Julio Marin on MonJul 18 2018 15:07:21 GMT-0500 (Central Daylight Time)
--- NOTE | 2018-07-18 18:23 | R.PN ---
ENCOUNTER DATE AND TIME: 07/18/2018 18:19 (CDT) NAME LINH SANDS DATE OF : 1935 DATE OF ADMISSION: 07/09/2018 17:51 (CALL TAKER) Left Hip FractureCHIEF COMPLAINT: Left hip fracture SUBJECTIVE: Pt denied any depression. Pt denied any Shortness of Breath. She had moderate pain in the left hip at rest which was alleviated by MS contin with phenergan in com bination with gabapentin and baclofen. Labs reviewed. Hgb 10.5, prealbumin 13.9. Ambulated 145' with standby assistance using a rolling walker. Self-propelled wheelchair 750' with mo dified independence. VITAL SIGNS Temperature: 98 F SBP/DBP: 116/56 Pulse: 70 Resp: 16 MEDICATION ALLERGIES: Codeine ENVIRONMENTAL ALLERGIES: None Known - Substance Allergies None Known - Other Allergies None Known NURSING: - Shower allowing shower - Skin care per protocol PRECAUTIONS: - Posterior Hip Precaution No adduction across midline No external rotation No hip flexion >90 degrees No internal rotation No wheel chair propulsion - Weight Bearing Precaution WBAT left LE ACTIVITIES OOB only with supervision THERAPIES: - Occupational Therapy Evaluate and Treat. - Physical Therapy Evaluate and Treat. PHYSICAL EXAM - Gen Alert and awake Lying in bed No apparent distress Oriented to: person, time, and place - Skin No breakdown No abnormalities - Eyes No abnormalities - ENMT No abnormalities - Neck No abnormalities - CVS RRR - Chest No abnormalities - Resp Clear to auscultation - Abd +bowel sounds - GI Soft Deferred - No abnormalities - Ext Left hip surgical site has good hemostasis. - MSK 4+/5 weakness in left lower extremity - Neuro 4/5 strength left lower extremity. - Psych No abnormalities ASSESSMENT: Pt. is a 83 yo Right-handed white female.On 06/29/2018 she was admitted to [facility] with francesca gnosis Left Hip Fracture.Her impairment category is Orthopaedic Disorders 08 - Unilateral Hip Fractu re (.).Pre-morbidly, Pt. was independent/mod-I in Self-Care, Sphincter Control, Transfers Control , Communication, Social Cognition, and Locomotion; and she had good Sphincter Control.Currently, she has deficits of Self-Care, Transfers Control, Endurance, Balance, Safety Awareness, and Locomotion.Pt . is now referred to [facility] for acute in-patient rehabilitation in order t o maximize patient's functional independence in activities of daily living, strength, ROM, and mobili ty.- Rehab Goal Patient has realistic goal of being discharged at assistance level 6-Radha to reside at Home with Fam wilmer/Relatives. MDM/PLAN: - Physical Therapy Decreased range of motion - to improve, our physical therapists will perform initial evaluation of p t's status upon admission and devise an individualized program for increasing patient's Range of Gianni on. Gait dysfunction - to improve, our physical therapists will perform initial evaluation of pt's statu s upon admission and devise an individualized program for Gait Training, and Wheel Chair mobility Inability to transfer - to improve, our physical therapists will perform initial evaluation of pt's status upon admission and devise an individualized program for Bed mobility Need for home safety evaluation - to improve, our physical therapists will perform initial evaluatio n of pt's status upon admission and devise an individualized program for Home Evaluation Need in caregiver upon discharge - to improve, our physical therapists will perform initial evaluati on of pt's status upon admission and devise an individualized program for Caregiver Training New precaution - to improve, our physical therapists will perform initial evaluation of pt's status upon admission and devise an individualized program for Patient precaution education Poor balance - to improve, our physical therapists will perform initial evaluation of pt's status up on admission and devise an individualized program for Balance Training Poor endurance - to improve, our physical therapists will perform initial evaluation of pt's status upon admission and devise an individualized program for Endurance Training Weakness - to improve, our physical therapists will perform initial evaluation of pt's status upon a dmission and devise an individualized program for Aquatic Therapy, Neuromuscular Reeducation, and Str engthening Achieving independence - to improve, our physical therapists will perform initial evaluation of pt's status upon admission and devise an individualized program for Community Reintegration Activities - Occupational Therapy ADL deficits - to improve, our occupation therapists will perform initial evaluation of pt's status upon admission and devise an individualized program for Bathing, Bed mobility, Community Reintegratio n, Cooking, Dressing, Eating, Fine Motor Skills, Grooming, Homemaking, Kitchen Mobility, Laundry, Pat ient Education, Safety Awareness, Splinting - Positioning, Transfers(Toilet, Tub, Shower), and Wheel Chair Management Need for care administrative tech - to improve, our occupation therapists will perform initial evaluation of pt's status upon admission and devise an individualized program for Caregiver Training Weakness - to improve, our occupation therapists will perform initial evaluation of pt's status upon admission and devise an individualized program for Aquatic Therapy, Balance, Endurance, UE ROM, and UE strengthening - Anterior Hip Precaution No abduction No active extension No adduction across midline No external rotation No hip flexion >90 degrees No internal rotation - Diet - Liquid Texture Continue Regular - Tube Feed Continue N/A - Diet Type Continue Regular - Posterior Hip Precaution No adduction across midline No external rotation No hip flexion >90 degrees No internal rotation No wheel chair propulsion - Weight Bearing Precaution WBAT left LE - Skin care per protocol - Diet - Solid Texture Continue Regular - Shower allowing shower FUNCTIONAL STATUS: UPDATED AT WEEKLY TEAM CONFERENCE - Bladder Same accident frequency: 7-Ind - No accidents in the past 7 days - Bowel Same accident frequency: 7-Ind - No accidents in the past 7 days - Walking Same score based on distance walked: 3(>=150ft) FUNCTIONAL STATUS: - Self-Care A. Eating sup B. Grooming sup C. Bathing modA D. Dressing - Upper Maria Isabel E. Dressing - Lower maxA F. Toileting modA - Sphincter Control G: Bladder control Ind H: Bowel control Ind - Transfers Control I. Bed/Chair/Wheelchair Maria Isabel J. Toilet Maria Isabel K. Tub/Shower modA - Locomotion L. Walk/Wheelchair (B) Maria Isabel M. Stairs ADNO - Communication N. Comprehension (B) Radha O. Expression (B) Radha - Social Cognition P. Social Interaction Radha Q. Problem Solving Radha R. Memory Radha - Endurance Fair - Balance Fair - Safety Awareness Fair CURRENT FUNC. DEFICITS: Self-Care, Transfers Control, Endurance, Balance, Safety Awareness, and Locomotion SIGNATURE PANEL: (CDT)
[2018-07-18] MEDS: DOCUSATE NA/SENNA CONC 1 TAB PO SCH (20:05)
[2018-07-18] MEDS: MELATONIN 3 MG TABLET PO PRN (20:05)
[2018-07-18] MEDS: PRAMIPEXOLE 0.25 MG TAB PO SCH (20:05)
--- NOTE | 2018-07-19 02:31 | FAST ---
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 Rambo De La Rosa M.D. ADMISSION DIAGNOSIS: - Orthopaedic Disorders 08 - Unilateral Hip Fracture (08.11) Left Hip Fracture. EATING: Activity did not occur on this shift EATING - SCORE: 0-UNK GROOMING: Activity did not occur on this shift GROOMING - SCORE: 0-UNK BATHING: Activity did not occur on this shift BATHING - SCORE: 0-UNK DRESSING - UPPER BODY: Patient is not dressing in public clothing ARTICLES SCORE Total number of steps: 0 DRESSING - UPPER BODY - SCORE: 0-UNK DRESSING - LOWER BODY: Patient is not dressing in public clothing ARTICLES SCORE Total number of steps: 0 DRESSING - LOWER BODY - SCORE: 0-UNK TOILETING: Activity did not occur on this shift TOILETING - SCORE: 0-UNK BLADDER MANAGEMENT: [place] removes incontinent device (Depends, pull ups, etc.); cleans the patient after accident / inco ntinent episode; and, applies new incontinent device. BLADDER MANAGEMENT - SCORE: 1-DEP BLADDER MANAGEMENT - FREQUENCY OF ACCIDENTS: BLADDER MANAGEMENT(FA) - STEP 1: How many accidents has the patient had during the current shift? 2 BOWEL MANAGEMENT: Activity did not occur on this shift BOWEL MANAGEMENT - SCORE: 7-IND TRANSFERS: BED, CHAIR, WHEELCHAIR: Patient requires more than one helper and/or the use of a mechanical lift is utilized TRANSFERS: BED, CHAIR, WHEELCHAIR - SCORE: 1-DEP TRANSFERS: TOILET: Patient requires more than one helper and/or the use of a mechanical lift is utilized TRANSFERS: TOILET - SCORE: 1-DEP TRANSFERS: SHOWER: Activity did not occur on this shift TRANSFERS: SHOWER - SCORE: 0-UNK TRANSFERS: TUB: Activity did not occur on this shift TRANSFERS: TUB - SCORE: 0-UNK LOCOMOTION: WALK: Activity did not occur on this shift LOCOMOTION: WALK - SCORE: 0-UNK LOCOMOTION: WHEELCHAIR: Activity did not occur on this shift LOCOMOTION: WHEELCHAIR - SCORE: 0-UNK COMPREHENSION: COMPREHENSION: TYPE: Both COMPREHENSION - STEP 1: Does the patient require help from a person or device, or need extra time to understand complex and a bstract ideas (such as current events, finances, discharge planning, medical issues, relationships, e tc)? No. COMPREHENSION - STEP 2: Does the patient need extra time, require an assistive device (such as glasses for visual comprehensi on or a hearing aid for auditory comprehension) or does s/he have mild difficulty understanding compl ex and abstract information? Yes. COMPREHENSION - SCORE: 6-SUSANA EXPRESSION EXPRESSION: TYPE: Both EXPRESSION - STEP 1: Does the patient require help from a person or device, or need extra time expressing complex and abst ract ideas (such as current events, finances, discharge planning, medical issues, relationships, etc) ? No. EXPRESSION - STEP 2: Does the patient need extra time, require an assistive device (such as augmentive communication syste m or a communication board), OR does s/he have mild difficulty expressing complex and abstract ideas (including mild dysarthria or mild word-find problems)? No. EXPRESSION - SCORE: 7-IND SOCIAL INTERACTION: SOCIAL INTERACTION - STEP 1: Does the patient require a helper to interact with others in social and therapeutic situations? No. SOCIAL INTERACTION - STEP 2: Does the patient need extra time in social situations, OR does s/he interact with staff, other patien ts, and family members ONLY in structured environments, OR does s/he require medication for social in teraction? Yes, patient needs extra time SOCIAL INTERACTION - SCORE: 6-SUSANA PROBLEM SOLVING: PROBLEM SOLVING - STEP 1: Does the patient need help from a person or device, or need extra time to solve complex problems such as managing a checking account or confronting interpersonal problems? No. PROBLEM SOLVING - STEP 2: Does the patient require extra time to make decisions or solve problems, OR does s/he have slight dif ficulty reading, initiating, or self-correcting in unfamiliar situations? No. PROBLEM SOLVING - SCORE: 7-IND MEMORY: MEMORY - STEP 1: Does the patient need help from a person or device, or need extra time to remember frequently encount ered people, daily routines, and executing requests? No. MEMORY - STEP 2: Does the patient have slight difficulty recognizing frequently encountered people, daily routines, or executing requests without the need for repetition or using self-initiated or environmental cues to remember? No. MEMORY - SCORE: 7-IND SIGNATURE PANEL: The following modified sections: Eating - Score, Grooming - Score, Bathing - Score, Dressing - Upper Body - Score, Dressing - Lower Body - Score, Toileting - Score, Bladder Management - Score, Bowel Man agement - Score, Transfers: Bed, Chair, Wheelchair - Score, Transfers: Toilet - Score, Transfers: Rubi wer - Score, Transfers: Tub - Score, Locomotion: Walk - Score, Locomotion: Wheelchair - Score, Compre hension - Score, Expression - Score, Social Interaction - Score, Problem Solving - Score, Memory - Sc ore were [electronically] signed by Jody Lee CNA on MonJul 19 2018 02:30:33 T-0500 ([place] Da ylight Time)
[2018-07-19 06:20] LABS: Absolute Lymphocytes (CBC) 1.4 K/uL (0.7-4.9); Absolute Monocytes 0.8 K/uL (0.1-1.3); Absolute Neutrophil 5.9 K/uL (1.8-8.0); Basophils % 1.3 % (0-1.3); Eosinophils % 1.6 % (0-4.4); Hematocrit 32.8 % (36.0-45.0); Lymphocytes % 17.2 % (15.3-44.8); MPV 7.7 fL (7.6-11.3); Monocytes % 9.5 % (3.3-12.3); RBC Red Blood Cell Count 3.29 M/uL (3.86-4.86)
[2018-07-19 06:39] LABS: Albumin 2.6 g/dL (3.4-5.0); Prealbumin 12.9 mg/dL (20-40)
[2018-07-19] MEDS: PANTOPRAZOLE 40MG TABLET PO SCH (06:41)
[2018-07-19] MEDS: LEVOTHYROXINE SOD 0.075 MG TAB PO SCH (06:41)
[2018-07-19] MEDS: VENLAFAXINE HCL XR 75 MG CAP PO SCH (08:30)
[2018-07-19] MEDS: hydroCHLOROthiazide 25 MG TAB PO SCH (08:31)
[2018-07-19] MEDS: GABAPENTIN 300 MG CAP PO SCH ×2 (08:31→20:26)
[2018-07-19] MEDS: LISINOPRIL 20 MG TAB PO SCH (08:31)
[2018-07-19] MEDS: AMLODIPINE 5 MG TAB PO SCH (08:32)
[2018-07-19] MEDS: FE SULF/FA/VIT B COMP & C TAB PO SCH (08:32)
[2018-07-19] MEDS: FERROUS SULFATE 325 MG TAB PO SCH (08:32)
[2018-07-19] MEDS: RIVAROXABAN 15 MG TABLET PO SCH (08:32)
[2018-07-19] MEDS: CRANBERRY FRUIT EXTRACT 200 MG CAP PO SCH ×2 (08:33→20:24)
[2018-07-19] MEDS: BACLOFEN 10 MG TAB PO SCH ×2 (08:33→20:25)
[2018-07-19] MEDS: SOLIFENACIN SUCCIN 5 MG TAB PO SCH (08:33)
[2018-07-19] MEDS: MAGNESIUM OXIDE 400 MG TAB PO SCH ×2 (08:33→20:26)
[2018-07-19] MEDS: DULOXETINE 20 MG CAP PO SCH (08:33)
[2018-07-19] MEDS: PROMOD 30 ML DOSE PO SCH ×2 (08:34→20:26)
[2018-07-19] MEDS: ALBUTEROL 2.5 MG/3 ML NEB SOL NEB SCH ×2 (08:49→20:00)
--- NOTE | 2018-07-19 13:10 | FAST ---
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 Rambo De La Rosa M.D. ADMISSION DIAGNOSIS: - Orthopaedic Disorders 08 - Unilateral Hip Fracture (08.11) Left Hip Fracture. EATING: EATING - STEP 1: Does the patient require the assistance of a person or device, or need extra time when eating? Yes. EATING - STEP 2: Does the patient require the assistance of a helper? No, patient only requires an assistive device, O R s/he takes more than reasonable time to eat, OR there is a safety concern, OR s/he requires modifie d food consistency EATING - SCORE: 6-SUSANA GROOMING: Comb/brush hair Oral care Wash, rinse, and dry face Wash, rinse, and dry hands GROOMING - STEP 1: Does the patient require the assistance of a person or device, or need extra time when grooming? Yes. GROOMING - STEP 2: Does the patient require the assistance of a helper? No. The patient only requires an assistive devic e, OR takes more than reasonable time to groom, OR there is a concern for safety as the patient groom s GROOMING - SCORE: 6-SUSANA BATHING: Activity did not occur on this shift BATHING - SCORE: 0-UNK DRESSING - UPPER BODY: T-shirt/pullover shirt (four steps) ARTICLES SCORE Total number of steps: 4 DRESSING - UPPER BODY - STEP 1: Does the patient require help from a person or device, or need extra time when dressing above the [address]? Yes. DRESSING - UPPER BODY - STEP 2: Does the patient require the assistance of a helper? Yes. DRESSING - UPPER BODY - STEP 3: Does the helper touch the patient while dressing? No. DRESSING - UPPER BODY - SCORE: 5-SUP DRESSING - LOWER BODY: ARTICLES SCORE Total number of steps: 3 DRESSING - LOWER BODY - STEP 1: Does the patient require help from a person or device, or need extra time when dressing below the [address]? Yes. DRESSING - LOWER BODY - STEP 2: Does the patient require the assistance of a helper? No. Patient requires an assistive device such as a broodmare foreman. OR s/he takes more than reasonable time as s/he dresses the lower body, OR there is a con cern for safety when s/he dresses the lower body DRESSING - LOWER BODY - SCORE: 6-SUSANA TOILETING: TOILETING - STEP 1: Does the patient require the assistance of a person or device, or need extra time with toileting? Yes . TOILETING - STEP 2: Does the patient require the assistance of a helper? Yes. TOILETING - STEP 3: How much assistance does the patient require from the helper? Hands-on assistance from the helper TOILETING - STEP 4: Of the 3 tasks: 1) Adjusting clothing prior to use, 2) Cleansing of perineal area, 3) Adjusting clot penny after use; How many tasks does the patient perform WITHOUT assistance of the helper? Two tasks TOILETING - SCORE: 3-MOD BLADDER MANAGEMENT: Emery removes incontinent device (Depends, pull ups, etc.); cleans the patient after accident / inco ntinent episode; and, applies new incontinent device. BLADDER MANAGEMENT - SCORE: 1-DEP BLADDER MANAGEMENT - FREQUENCY OF ACCIDENTS: BLADDER MANAGEMENT(FA) - STEP 1: How many accidents has the patient had during the current shift? 2 BOWEL MANAGEMENT: Activity did not occur on this shift BOWEL MANAGEMENT - SCORE: 7-IND TRANSFERS: BED, CHAIR, WHEELCHAIR: TRANSFERS: BED, CHAIR, WHEELCHAIR - STEP 1: Does the patient require assistance of a person or device, or need extra time with bed, chair, or whe elchair transfers? Yes. TRANSFERS: BED, CHAIR, WHEELCHAIR - STEP 2: Does the patient require the assistance of a helper? Yes. TRANSFERS: BED, CHAIR, WHEELCHAIR - STEP 3: How much assistance does the patient require from the helper? Lifting of the patient TRANSFERS: BED, CHAIR, WHEELCHAIR - STEP 4: Does the helper lift the patient ONLY up? ONLY down? Up AND Down? ONLY up. TRANSFERS: BED, CHAIR, WHEELCHAIR - SCORE: 3-MOD TRANSFERS: TOILET: TRANSFERS: TOILET - STEP 1: Does the patient require the assistance of a person or device, or need extra time with toilet transfe rs? Yes. TRANSFERS: TOILET - STEP 2: Does the patient require the assistance of a helper? Yes. TRANSFERS: TOILET - STEP 3: How much assistance does the patient require from the helper? Patient performs half or more of the tr ansferring tasks TRANSFERS: TOILET - STEP 4: Does the patient need only incidental help such as contact guard or steadying during toilet transfer? No. Patient needs more than incidental help TRANSFERS: TOILET - SCORE: 3-MOD TRANSFERS: SHOWER: Activity did not occur on this shift TRANSFERS: SHOWER - SCORE: 0-UNK TRANSFERS: TUB: Activity did not occur on this shift TRANSFERS: TUB - SCORE: 0-UNK LOCOMOTION: WALK: Activity did not occur on this shift LOCOMOTION: WALK - SCORE: 0-UNK LOCOMOTION: WHEELCHAIR: Activity did not occur on this shift LOCOMOTION: WHEELCHAIR - SCORE: 0-UNK COMPREHENSION: COMPREHENSION: TYPE: Both COMPREHENSION - STEP 1: Does the patient require help from a person or device, or need extra time to understand complex and a bstract ideas (such as current events, finances, discharge planning, medical issues, relationships, e tc)? No. COMPREHENSION - STEP 2: Does the patient need extra time, require an assistive device (such as glasses for visual comprehensi on or a hearing aid for auditory comprehension) or does s/he have mild difficulty understanding compl ex and abstract information? Yes. COMPREHENSION - SCORE: 6-SUSANA EXPRESSION EXPRESSION: TYPE: Both EXPRESSION - STEP 1: Does the patient require help from a person or device, or need extra time expressing complex and abst ract ideas (such as current events, finances, discharge planning, medical issues, relationships, etc) ? No. EXPRESSION - STEP 2: Does the patient need extra time, require an assistive device (such as augmentive communication syste m or a communication board), OR does s/he have mild difficulty expressing complex and abstract ideas (including mild dysarthria or mild word-find problems)? Yes. EXPRESSION - SCORE: 6-SUSANA SOCIAL INTERACTION: SOCIAL INTERACTION - STEP 1: Does the patient require a helper to interact with others in social and therapeutic situations? No. SOCIAL INTERACTION - STEP 2: Does the patient need extra time in social situations, OR does s/he interact with staff, other patien ts, and family members ONLY in structured environments, OR does s/he require medication for social in teraction? Yes, patient needs extra time SOCIAL INTERACTION - SCORE: 6-SUSANA PROBLEM SOLVING: PROBLEM SOLVING - STEP 1: Does the patient need help from a person or device, or need extra time to solve complex problems such as managing a checking account or confronting interpersonal problems? No. PROBLEM SOLVING - STEP 2: Does the patient require extra time to make decisions or solve problems, OR does s/he have slight dif ficulty reading, initiating, or self-correcting in unfamiliar situations? Yes, patient needs extra ti me. PROBLEM SOLVING - SCORE: 6-SUSANA MEMORY: MEMORY - STEP 1: Does the patient need help from a person or device, or need extra time to remember frequently encount ered people, daily routines, and executing requests? No. MEMORY - STEP 2: Does the patient have slight difficulty recognizing frequently encountered people, daily routines, or executing requests without the need for repetition or using self-initiated or environmental cues to remember? Yes. MEMORY - SCORE: 6-SUSANA SIGNATURE PANEL: The following modified sections: Eating - Score, Grooming - Score, Bathing - Score, Dressing - Upper Body - Score, Dressing - Lower Body - Score, Toileting - Score, Bladder Management - Score, Bowel Man agement - Score, Transfers: Bed, Chair, Wheelchair - Score, Transfers: Toilet - Score, Transfers: Rubi wer - Score, Transfers: Tub - Score, Locomotion: Walk - Score, Locomotion: Wheelchair - Score, Compre hension - Score, Expression - Score, Social Interaction - Score, Problem Solving - Score, Memory - Sc ore were [electronically] signed by Julio Marin on MonJul 19 2018 13:09:53 GMT-0500 (Central Daylight Time)
[2018-07-19] MEDS: LIDOCAINE 5% PATCH TOP SCH (13:58)
[2018-07-19] MEDS: NYSTATIN PWDR 100000 UNIT/GM TOP SCH ×2 (13:59→20:28)
[2018-07-19] MEDS: PRAMIPEXOLE 0.25 MG TAB PO SCH (20:26)
[2018-07-19] MEDS: DOCUSATE NA/SENNA CONC 1 TAB PO SCH (20:26)
[2018-07-19] MEDS: MELATONIN 3 MG TABLET PO PRN (20:27)
[2018-07-19] MEDS: ACETAMINOPHEN 500 MG TAB PO PRN (22:42)
--- NOTE | 2018-07-20 02:37 | FAST ---
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 Rambo De La Rosa M.D. ADMISSION DIAGNOSIS: - Orthopaedic Disorders 08 - Unilateral Hip Fracture (08.11) Left Hip Fracture. EATING: Activity did not occur on this shift EATING - SCORE: 0-UNK GROOMING: Activity did not occur on this shift GROOMING - SCORE: 0-UNK BATHING: Activity did not occur on this shift BATHING - SCORE: 0-UNK DRESSING - UPPER BODY: Patient is not dressing in public clothing ARTICLES SCORE Total number of steps: 0 DRESSING - UPPER BODY - SCORE: 0-UNK DRESSING - LOWER BODY: Patient is not dressing in public clothing ARTICLES SCORE Total number of steps: 0 DRESSING - LOWER BODY - SCORE: 0-UNK TOILETING: TOILETING - STEP 1: Does the patient require the assistance of a person or device, or need extra time with toileting? Yes . TOILETING - STEP 2: Does the patient require the assistance of a helper? Yes. TOILETING - STEP 3: How much assistance does the patient require from the helper? Hands-on assistance from the helper TOILETING - STEP 4: Of the 3 tasks: 1) Adjusting clothing prior to use, 2) Cleansing of perineal area, 3) Adjusting clot penny after use; How many tasks does the patient perform WITHOUT assistance of the helper? No tasks; h elper performs all three tasks TOILETING - SCORE: 1-DEP BLADDER MANAGEMENT: Grabill removes incontinent device (Depends, pull ups, etc.); cleans the patient after accident / inco ntinent episode; and, applies new incontinent device. BLADDER MANAGEMENT - SCORE: 1-DEP BOWEL MANAGEMENT: Activity did not occur on this shift BOWEL MANAGEMENT - SCORE: 7-IND TRANSFERS: BED, CHAIR, WHEELCHAIR: Patient requires more than one helper and/or the use of a mechanical lift is utilized TRANSFERS: BED, CHAIR, WHEELCHAIR - SCORE: 1-DEP TRANSFERS: TOILET: Patient requires more than one helper and/or the use of a mechanical lift is utilized TRANSFERS: TOILET - SCORE: 1-DEP TRANSFERS: SHOWER: Activity did not occur on this shift TRANSFERS: SHOWER - SCORE: 0-UNK TRANSFERS: TUB: Activity did not occur on this shift TRANSFERS: TUB - SCORE: 0-UNK LOCOMOTION: WALK: Activity did not occur on this shift LOCOMOTION: WALK - SCORE: 0-UNK LOCOMOTION: WHEELCHAIR: Activity did not occur on this shift LOCOMOTION: WHEELCHAIR - SCORE: 0-UNK COMPREHENSION: COMPREHENSION: TYPE: Both COMPREHENSION - STEP 1: Does the patient require help from a person or device, or need extra time to understand complex and a bstract ideas (such as current events, finances, discharge planning, medical issues, relationships, e tc)? No. COMPREHENSION - STEP 2: Does the patient need extra time, require an assistive device (such as glasses for visual comprehensi on or a hearing aid for auditory comprehension) or does s/he have mild difficulty understanding compl ex and abstract information? Yes. COMPREHENSION - SCORE: 6-SUSANA EXPRESSION EXPRESSION: TYPE: Both EXPRESSION - STEP 1: Does the patient require help from a person or device, or need extra time expressing complex and abst ract ideas (such as current events, finances, discharge planning, medical issues, relationships, etc) ? No. EXPRESSION - STEP 2: Does the patient need extra time, require an assistive device (such as augmentive communication syste m or a communication board), OR does s/he have mild difficulty expressing complex and abstract ideas (including mild dysarthria or mild word-find problems)? No. EXPRESSION - SCORE: 7-IND SOCIAL INTERACTION: SOCIAL INTERACTION - STEP 1: Does the patient require a helper to interact with others in social and therapeutic situations? No. SOCIAL INTERACTION - STEP 2: Does the patient need extra time in social situations, OR does s/he interact with staff, other patien ts, and family members ONLY in structured environments, OR does s/he require medication for social in teraction? No. SOCIAL INTERACTION - SCORE: 7-IND PROBLEM SOLVING: PROBLEM SOLVING - STEP 1: Does the patient need help from a person or device, or need extra time to solve complex problems such as managing a checking account or confronting interpersonal problems? No. PROBLEM SOLVING - STEP 2: Does the patient require extra time to make decisions or solve problems, OR does s/he have slight dif ficulty reading, initiating, or self-correcting in unfamiliar situations? No. PROBLEM SOLVING - SCORE: 7-IND MEMORY: MEMORY - STEP 1: Does the patient need help from a person or device, or need extra time to remember frequently encount ered people, daily routines, and executing requests? No. MEMORY - STEP 2: Does the patient have slight difficulty recognizing frequently encountered people, daily routines, or executing requests without the need for repetition or using self-initiated or environmental cues to remember? No. MEMORY - SCORE: 7-IND SIGNATURE PANEL: The following modified sections: Eating - Score, Grooming - Score, Bathing - Score, Dressing - Upper Body - Score, Dressing - Lower Body - Score, Toileting - Score, Bladder Management - Score, Bowel Man agement - Score, Transfers: Bed, Chair, Wheelchair - Score, Transfers: Toilet - Score, Transfers: Rubi wer - Score, Transfers: Tub - Score, Locomotion: Walk - Score, Locomotion: Wheelchair - Score, Compre hension - Score, Expression - Score, Social Interaction - Score, Problem Solving - Score, Memory - Sc ore were [electronically] signed by Jody Lee CNA on MonJul 20 2018 02:36:28 T-0500 ([facility] Time)
[2018-07-20] MEDS: TRAMADOL HCL 50 MG TAB PO PRN ×3 (03:26→20:38)
[2018-07-20] MEDS: FERROUS SULFATE 325 MG TAB PO SCH (07:48)
[2018-07-20] MEDS: hydroCHLOROthiazide 25 MG TAB PO SCH (07:48)
[2018-07-20] MEDS: FE SULF/FA/VIT B COMP & C TAB PO SCH (07:48)
[2018-07-20] MEDS: AMLODIPINE 5 MG TAB PO SCH (07:49)
[2018-07-20] MEDS: RIVAROXABAN 15 MG TABLET PO SCH (07:49)
[2018-07-20] MEDS: GABAPENTIN 300 MG CAP PO SCH ×2 (07:49→20:38)
[2018-07-20] MEDS: LISINOPRIL 20 MG TAB PO SCH (07:49)
[2018-07-20] MEDS: BACLOFEN 10 MG TAB PO SCH ×2 (07:49→20:39)
[2018-07-20] MEDS: VENLAFAXINE HCL XR 75 MG CAP PO SCH (07:49)
[2018-07-20] MEDS: SOLIFENACIN SUCCIN 5 MG TAB PO SCH (07:50)
[2018-07-20] MEDS: CRANBERRY FRUIT EXTRACT 200 MG CAP PO SCH ×2 (07:50→20:37)
[2018-07-20] MEDS: MAGNESIUM OXIDE 400 MG TAB PO SCH ×2 (07:50→20:38)
[2018-07-20] MEDS: PROMOD 30 ML DOSE PO SCH ×2 (07:50→20:00)
[2018-07-20] MEDS: DULOXETINE 20 MG CAP PO SCH (07:52)
[2018-07-20] MEDS: PANTOPRAZOLE 40MG TABLET PO SCH (07:54)
[2018-07-20] MEDS: LEVOTHYROXINE SOD 0.075 MG TAB PO SCH (07:54)
[2018-07-20] MEDS: NYSTATIN PWDR 100000 UNIT/GM TOP SCH ×2 (08:00→20:40)
[2018-07-20] MEDS: ALBUTEROL 2.5 MG/3 ML NEB SOL NEB SCH (08:00)
[2018-07-20] MEDS: LIDOCAINE 5% PATCH TOP SCH (09:32)
--- NOTE | 2018-07-20 12:37 | FAST ---
ENCOUNTER DATE AND TIME: 07/20/2018 08:00 (CDT) NAME LINH SANDS DATE OF : 1935 DATE OF ADMISSION: 07/09/2018 17:51 (ECMO SPECIALIST) PHONE: AGE: 83 SSN# [id number] GENDER: Female ENCOUNTER PHYSICIAN: Dr. Rambo De La Rosa M.D. ADMISSION DIAGNOSIS: - Orthopaedic Disorders 08 - Unilateral Hip Fracture (08.11) Left Hip Fracture. EATING: Activity did not occur on this shift EATING - SCORE: 0-UNK GROOMING: GROOMING - STEP 1: Does the patient require the assistance of a person or device, or need extra time when grooming? No. GROOMING - SCORE: 7-IND BATHING: Abdomen Buttocks Chest Left arm Left lower leg and foot Left upper leg Perineal area Right arm Right lower leg and foot Right upper leg BATHING - STEP 1: Does the patient require the assistance of a person or device, or need extra time when bathing? Yes. BATHING - STEP 2: Does the patient require the assistance of a helper? Yes. BATHING - STEP 3: How much assistance does the patient require from the helper? Only incidental help such as placement of a wash cloth in his/her hand a few times as s/he bathes OR help to bathe just one or two areas of the body BATHING - SCORE: 4-MIN DRESSING - UPPER BODY: T-shirt/pullover shirt (four steps) ARTICLES SCORE Total number of steps: 4 DRESSING - UPPER BODY - STEP 1: Does the patient require help from a person or device, or need extra time when dressing above the [address]? No. DRESSING - UPPER BODY - SCORE: 7-IND DRESSING - LOWER BODY: Slip-on shoe - Left foot (one step) Slip-on shoe - Right foot (one step) Sock - Left foot (one step) Sock - Right foot (one step) Underwear (three steps) ARTICLES SCORE Total number of steps: 7 DRESSING - LOWER BODY - STEP 1: Does the patient require help from a person or device, or need extra time when dressing below the [address]? Yes. DRESSING - LOWER BODY - STEP 2: Does the patient require the assistance of a helper? Yes. DRESSING - LOWER BODY - STEP 3: Does the helper touch the patient while dressing? No. DRESSING - LOWER BODY - SCORE: 5-SUP TOILETING: Activity did not occur on this shift TOILETING - SCORE: 0-UNK BLADDER MANAGEMENT: Activity did not occur on this shift BLADDER MANAGEMENT - SCORE: 7-IND BOWEL MANAGEMENT: Activity did not occur on this shift BOWEL MANAGEMENT - SCORE: 7-IND TRANSFERS: BED, CHAIR, WHEELCHAIR: Activity did not occur on this shift TRANSFERS: BED, CHAIR, WHEELCHAIR - SCORE: 0-UNK TRANSFERS: TOILET: Activity did not occur on this shift TRANSFERS: TOILET - SCORE: 0-UNK TRANSFERS: SHOWER: TRANSFERS: SHOWER - STEP 1: Does the patient require the assistance of a person or device, or need extra time with shower transfe rs? Yes. TRANSFERS: SHOWER - STEP 2: Does the patient require the assistance of a helper? Yes. TRANSFERS: SHOWER - STEP 3: How much assistance does the patient require from the helper? Only supervision, cuing, coaxing, or he lp to set out transfer equipment or to lock brakes and/or lift foot rests TRANSFERS: SHOWER - SCORE: 5-SUP TRANSFERS: TUB: Activity did not occur on this shift TRANSFERS: TUB - SCORE: 0-UNK LOCOMOTION: WALK: Activity did not occur on this shift LOCOMOTION: WALK - SCORE: 0-UNK LOCOMOTION: WHEELCHAIR: Activity did not occur on this shift LOCOMOTION: WHEELCHAIR - SCORE: 0-UNK LOCOMOTION: STAIRS: Activity did not occur on this shift LOCOMOTION: STAIRS - SCORE: 0-UNK COMPREHENSION: COMPREHENSION: TYPE: Both COMPREHENSION - STEP 1: Does the patient require help from a person or device, or need extra time to understand complex and a bstract ideas (such as current events, finances, discharge planning, medical issues, relationships, e tc)? Yes. COMPREHENSION - STEP 2: Does the patient require help to understand questions or statements about basic needs or ideas (such as hunger, thirst, sleep, safety, daily schedule, room location, or discomfort) half or more of the t meche? No. COMPREHENSION - STEP 3: How often does the patient need help to understand directions and conversation about basic needs? Les s than 10% of the time COMPREHENSION - SCORE: 5-SUP EXPRESSION EXPRESSION: TYPE: Both EXPRESSION - STEP 1: Does the patient require help from a person or device, or need extra time expressing complex and abst ract ideas (such as current events, finances, discharge planning, medical issues, relationships, etc) ? No. EXPRESSION - STEP 2: Does the patient need extra time, require an assistive device (such as augmentive communication syste m or a communication board), OR does s/he have mild difficulty expressing complex and abstract ideas (including mild dysarthria or mild word-find problems)? Yes. EXPRESSION - SCORE: 6-SUSANA SOCIAL INTERACTION: SOCIAL INTERACTION - STEP 1: Does the patient require a helper to interact with others in social and therapeutic situations? No. SOCIAL INTERACTION - STEP 2: Does the patient need extra time in social situations, OR does s/he interact with staff, other patien ts, and family members ONLY in structured environments, OR does s/he require medication for social in teraction? Yes, patient needs extra time SOCIAL INTERACTION - SCORE: 6-SUSANA PROBLEM SOLVING: PROBLEM SOLVING - STEP 1: Does the patient need help from a person or device, or need extra time to solve complex problems such as managing a checking account or confronting interpersonal problems? Yes. PROBLEM SOLVING - STEP 2: Does the patient solve basic routine problems half or more of the time? Yes. PROBLEM SOLVING - STEP 3: How often does the patient need help to solve basic routine problems? 10%-24% of the time PROBLEM SOLVING - SCORE: 4-MIN MEMORY: MEMORY - STEP 1: Does the patient need help from a person or device, or need extra time to remember frequently encount ered people, daily routines, and executing requests? Yes. MEMORY - STEP 2: How often does the patient need help to remember frequently encountered people, daily routines, and e xecuting requests? 10% - 24% of the time MEMORY - SCORE: 4-MIN SIGNATURE PANEL: The following modified sections: Eating - Score, Grooming - Score, Bathing - Score, Dressing - Upper Body - Score, Dressing - Lower Body - Score, Toileting - Score, Transfers: Bed, Chair, Wheelchair - S core, Transfers: Toilet - Score, Transfers: Shower - Score, Transfers: Tub - Score, Comprehension - S core, Expression - Score, Social Interaction - Score, Problem Solving - Score, Memory - Score were [e lectronically] signed by Giselle Collazo OT on MonJul 20 2018 12:36:25 GMT-0500 (Central Da ylight Time)
--- NOTE | 2018-07-20 15:10 | FAST ---
ENCOUNTER DATE AND TIME: 07/20/2018 08:00 (CDT) NAME LINH SANDS DATE OF : 1935 DATE OF ADMISSION: 07/09/2018 17:51 (GEAR FINISHER) PHONE: AGE: 83 SSN# [id number] GENDER: Female ENCOUNTER PHYSICIAN: Dr. Rambo De La Rosa M.D. ADMISSION DIAGNOSIS: - Orthopaedic Disorders 08 - Unilateral Hip Fracture (08.11) Left Hip Fracture. EATING: Activity did not occur on this shift EATING - SCORE: 0-UNK GROOMING: Activity did not occur on this shift GROOMING - SCORE: 0-UNK BATHING: Activity did not occur on this shift BATHING - SCORE: 0-UNK DRESSING - UPPER BODY: Activity did not occur on this shift Patient is not dressing in public clothing ARTICLES SCORE Total number of steps: 0 DRESSING - UPPER BODY - SCORE: 0-UNK DRESSING - LOWER BODY: Activity did not occur on this shift Patient is not dressing in public clothing ARTICLES SCORE Total number of steps: 0 DRESSING - LOWER BODY - SCORE: 0-UNK TOILETING: Activity did not occur on this shift TOILETING - SCORE: 0-UNK BLADDER MANAGEMENT: Activity did not occur on this shift BLADDER MANAGEMENT - SCORE: 7-IND BOWEL MANAGEMENT: Activity did not occur on this shift BOWEL MANAGEMENT - SCORE: 7-IND TRANSFERS: BED, CHAIR, WHEELCHAIR: Activity did not occur on this shift TRANSFERS: BED, CHAIR, WHEELCHAIR - SCORE: 0-UNK TRANSFERS: TOILET: Activity did not occur on this shift TRANSFERS: TOILET - SCORE: 0-UNK TRANSFERS: SHOWER: Activity did not occur on this shift TRANSFERS: SHOWER - SCORE: 0-UNK TRANSFERS: TUB: Activity did not occur on this shift TRANSFERS: TUB - SCORE: 0-UNK LOCOMOTION: WALK: Activity did not occur on this shift LOCOMOTION: WALK - SCORE: 0-UNK LOCOMOTION: WHEELCHAIR: LOCOMOTION: WHEELCHAIR - STEP 1: Does the patient need help to go 150 feet in a wheelchair? Yes. LOCOMOTION: WHEELCHAIR - STEP 2: How much assistance does the patient need from the helper? Only supervision, cuing, or coaxing LOCOMOTION: WHEELCHAIR - SCORE: 5-SUP LOCOMOTION: STAIRS: Activity did not occur on this shift LOCOMOTION: STAIRS - SCORE: 0-UNK COMPREHENSION: COMPREHENSION - SCORE: 0-UNK EXPRESSION EXPRESSION - SCORE: 0-UNK SOCIAL INTERACTION: SOCIAL INTERACTION - SCORE: 0-UNK PROBLEM SOLVING: PROBLEM SOLVING - SCORE: 0-UNK MEMORY: MEMORY - SCORE: 0-UNK SIGNATURE PANEL: The following modified sections: Transfers: Bed, Chair, Wheelchair - Score, Transfers: Toilet - Score , Locomotion: Walk - Score, Locomotion: Wheelchair - Score, Locomotion: Stairs - Score were [electron ically] signed by Roberto Sumner PTA on MonJul 20 2018 15:09:39 GMT-0500 (Central Daylight Time)
--- NOTE | 2018-07-20 15:13 | FAST ---
ENCOUNTER DATE AND TIME: 07/19/2018 08:00 (CDT) NAME LINH SANDS DATE OF : 1935 DATE OF ADMISSION: 07/09/2018 17:51 (MEDTRONICS TECHNICIAN) PHONE: AGE: 83 SSN# [id number] GENDER: Female ENCOUNTER PHYSICIAN: Dr. Rambo De La Rosa M.D. ADMISSION DIAGNOSIS: - Orthopaedic Disorders 08 - Unilateral Hip Fracture (08.11) Left Hip Fracture. EATING: Activity did not occur on this shift EATING - SCORE: 0-UNK GROOMING: Activity did not occur on this shift GROOMING - SCORE: 0-UNK BATHING: Activity did not occur on this shift BATHING - SCORE: 0-UNK DRESSING - UPPER BODY: Activity did not occur on this shift Patient is not dressing in public clothing ARTICLES SCORE Total number of steps: 0 DRESSING - UPPER BODY - SCORE: 0-UNK DRESSING - LOWER BODY: Activity did not occur on this shift Patient is not dressing in public clothing ARTICLES SCORE Total number of steps: 0 DRESSING - LOWER BODY - SCORE: 0-UNK TOILETING: Activity did not occur on this shift TOILETING - SCORE: 0-UNK BLADDER MANAGEMENT: Activity did not occur on this shift BLADDER MANAGEMENT - SCORE: 7-IND BOWEL MANAGEMENT: Activity did not occur on this shift BOWEL MANAGEMENT - SCORE: 7-IND TRANSFERS: BED, CHAIR, WHEELCHAIR: TRANSFERS: BED, CHAIR, WHEELCHAIR - STEP 1: Does the patient require assistance of a person or device, or need extra time with bed, chair, or whe elchair transfers? Yes. TRANSFERS: BED, CHAIR, WHEELCHAIR - STEP 2: Does the patient require the assistance of a helper? Yes. TRANSFERS: BED, CHAIR, WHEELCHAIR - STEP 3: How much assistance does the patient require from the helper? Steadying/guiding assistance TRANSFERS: BED, CHAIR, WHEELCHAIR - SCORE: 4-MIN TRANSFERS: TOILET: Activity did not occur on this shift TRANSFERS: TOILET - SCORE: 0-UNK TRANSFERS: SHOWER: Activity did not occur on this shift TRANSFERS: SHOWER - SCORE: 0-UNK TRANSFERS: TUB: Activity did not occur on this shift TRANSFERS: TUB - SCORE: 0-UNK LOCOMOTION: WALK: LOCOMOTION: WALK - STEP 1: Does the patient need help from a person or device, or need extra time to walk 150 feet? Yes. LOCOMOTION: WALK - STEP 2: How much assistance does the patient require to walk a minimum of 150 feet? Patient walks less than 1 50 feet - but more than 50 feet - with the assistance of only one helper LOCOMOTION: WALK - SCORE: 2-MAX LOCOMOTION: WHEELCHAIR: LOCOMOTION: WHEELCHAIR - STEP 1: Does the patient need help to go 150 feet in a wheelchair? No. LOCOMOTION: WHEELCHAIR - SCORE: 6-SUSANA LOCOMOTION: STAIRS: Activity did not occur on this shift LOCOMOTION: STAIRS - SCORE: 0-UNK COMPREHENSION: COMPREHENSION - SCORE: 0-UNK EXPRESSION EXPRESSION - SCORE: 0-UNK SOCIAL INTERACTION: SOCIAL INTERACTION - SCORE: 0-UNK PROBLEM SOLVING: PROBLEM SOLVING - SCORE: 0-UNK MEMORY: MEMORY - SCORE: 0-UNK SIGNATURE PANEL: The following modified sections: Transfers: Bed, Chair, Wheelchair - Score, Transfers: Toilet - Score , Locomotion: Walk - Score, Locomotion: Wheelchair - Score, Locomotion: Stairs - Score were [adolfo ayon] signed by Roberto Sumner PTA on MonJul 20 2018 15:13:11 T-0500 (Central Daylight Time)
--- NOTE | 2018-07-20 15:18 | FAST ---
ENCOUNTER DATE AND TIME: 07/18/2018 08:00 (CDT) NAME LINH SANDS DATE OF : 1935 DATE OF ADMISSION: 07/09/2018 17:51 (ADVANCED QUALITY ENGINEER) PHONE: AGE: 83 SSN# [id number] GENDER: Female ENCOUNTER PHYSICIAN: Dr. Rambo De La Rosa M.D. ADMISSION DIAGNOSIS: - Orthopaedic Disorders 08 - Unilateral Hip Fracture (08.11) Left Hip Fracture. EATING: Activity did not occur on this shift EATING - SCORE: 0-UNK GROOMING: Activity did not occur on this shift GROOMING - SCORE: 0-UNK BATHING: Activity did not occur on this shift BATHING - SCORE: 0-UNK DRESSING - UPPER BODY: Activity did not occur on this shift Patient is not dressing in public clothing ARTICLES SCORE Total number of steps: 0 DRESSING - UPPER BODY - SCORE: 0-UNK DRESSING - LOWER BODY: Activity did not occur on this shift Patient is not dressing in public clothing ARTICLES SCORE Total number of steps: 0 DRESSING - LOWER BODY - SCORE: 0-UNK TOILETING: Activity did not occur on this shift TOILETING - SCORE: 0-UNK BLADDER MANAGEMENT: Activity did not occur on this shift BLADDER MANAGEMENT - SCORE: 7-IND BOWEL MANAGEMENT: Activity did not occur on this shift BOWEL MANAGEMENT - SCORE: 7-IND TRANSFERS: BED, CHAIR, WHEELCHAIR: TRANSFERS: BED, CHAIR, WHEELCHAIR - STEP 1: Does the patient require assistance of a person or device, or need extra time with bed, chair, or whe elchair transfers? Yes. TRANSFERS: BED, CHAIR, WHEELCHAIR - STEP 2: Does the patient require the assistance of a helper? Yes. TRANSFERS: BED, CHAIR, WHEELCHAIR - STEP 3: How much assistance does the patient require from the helper? Steadying/guiding assistance TRANSFERS: BED, CHAIR, WHEELCHAIR - SCORE: 4-MIN TRANSFERS: TOILET: Activity did not occur on this shift TRANSFERS: TOILET - SCORE: 0-UNK TRANSFERS: SHOWER: Activity did not occur on this shift TRANSFERS: SHOWER - SCORE: 0-UNK TRANSFERS: TUB: Activity did not occur on this shift TRANSFERS: TUB - SCORE: 0-UNK LOCOMOTION: WALK: LOCOMOTION: WALK - STEP 1: Does the patient need help from a person or device, or need extra time to walk 150 feet? Yes. LOCOMOTION: WALK - STEP 2: How much assistance does the patient require to walk a minimum of 150 feet? Patient walks less than 1 50 feet - but more than 50 feet - with the assistance of only one helper LOCOMOTION: WALK - SCORE: 2-MAX LOCOMOTION: WHEELCHAIR: LOCOMOTION: WHEELCHAIR - STEP 1: Does the patient need help to go 150 feet in a wheelchair? No. LOCOMOTION: WHEELCHAIR - SCORE: 6-SUSANA LOCOMOTION: STAIRS: Activity did not occur on this shift LOCOMOTION: STAIRS - SCORE: 0-UNK COMPREHENSION: COMPREHENSION - SCORE: 0-UNK EXPRESSION EXPRESSION - SCORE: 0-UNK SOCIAL INTERACTION: SOCIAL INTERACTION - SCORE: 0-UNK PROBLEM SOLVING: PROBLEM SOLVING - SCORE: 0-UNK MEMORY: MEMORY - SCORE: 0-UNK SIGNATURE PANEL: The following modified sections: Transfers: Bed, Chair, Wheelchair - Score, Transfers: Toilet - Score , Locomotion: Walk - Score, Locomotion: Wheelchair - Score, Locomotion: Stairs - Score were [adolfo ayon] signed by Roberto Sumner PTA on MonJul 20 2018 15:17:45 T-0500 (Central Daylight Time)
[2018-07-20] MEDS ORDERED: ALBUTEROL 2.5 MG/3 ML NEB SOL NEB PRN (17:46)
[2018-07-20] MEDS: MELATONIN 3 MG TABLET PO PRN (20:38)
[2018-07-20] MEDS: PRAMIPEXOLE 0.25 MG TAB PO SCH (20:38)
[2018-07-20] MEDS: DOCUSATE NA/SENNA CONC 1 TAB PO SCH (20:39)
[2018-07-20] MEDS: TRAZODONE 50 MG TABLET PO PRN (22:18)
--- NOTE | 2018-07-21 02:46 | FAST ---
SHIFT START DATE/TIME: 07/20/2018 19:00 (CDT) SHIFT END DATE/TIME: 07/21/2018 07:00 (CDT) NAME LINH SANDS DATE OF : 1935 DATE OF ADMISSION: 07/09/2018 17:51 (FARMWORKER FRUIT) PHONE: AGE: 83 SSN# [id number] GENDER: Female ENCOUNTER PHYSICIAN: Dr. Rambo De La Rosa M.D. ADMISSION DIAGNOSIS: - Orthopaedic Disorders 08 - Unilateral Hip Fracture (08.11) Left Hip Fracture. EATING: Activity did not occur on this shift EATING - SCORE: 0-UNK GROOMING: Oral care Wash, rinse, and dry face Wash, rinse, and dry hands GROOMING - STEP 1: Does the patient require the assistance of a person or device, or need extra time when grooming? Yes. GROOMING - STEP 2: Does the patient require the assistance of a helper? Yes. GROOMING - STEP 3: How much assistance does the patient require from the helper? Only prior equipment preparation/set up from the helper GROOMING - SCORE: 5-SUP BATHING: Activity did not occur on this shift BATHING - SCORE: 0-UNK DRESSING - UPPER BODY: Patient is not dressing in public clothing ARTICLES SCORE Total number of steps: 0 DRESSING - UPPER BODY - SCORE: 0-UNK DRESSING - LOWER BODY: Patient is not dressing in public clothing ARTICLES SCORE Total number of steps: 0 DRESSING - LOWER BODY - SCORE: 0-UNK TOILETING: TOILETING - STEP 1: Does the patient require the assistance of a person or device, or need extra time with toileting? Yes . TOILETING - STEP 2: Does the patient require the assistance of a helper? Yes. TOILETING - STEP 3: How much assistance does the patient require from the helper? Hands-on assistance from the helper TOILETING - STEP 4: Of the 3 tasks: 1) Adjusting clothing prior to use, 2) Cleansing of perineal area, 3) Adjusting clot penny after use; How many tasks does the patient perform WITHOUT assistance of the helper? No tasks; h elper performs all three tasks TOILETING - SCORE: 1-DEP BLADDER MANAGEMENT: [place] removes incontinent device (Depends, pull ups, etc.); cleans the patient after accident / inco ntinent episode; and, applies new incontinent device. BLADDER MANAGEMENT - SCORE: 1-DEP BLADDER MANAGEMENT - FREQUENCY OF ACCIDENTS: BLADDER MANAGEMENT(FA) - STEP 1: How many accidents has the patient had during the current shift? 1 BOWEL MANAGEMENT: Activity did not occur on this shift BOWEL MANAGEMENT - SCORE: 7-IND TRANSFERS: BED, CHAIR, WHEELCHAIR: TRANSFERS: BED, CHAIR, WHEELCHAIR - STEP 1: Does the patient require assistance of a person or device, or need extra time with bed, chair, or whe elchair transfers? Yes. TRANSFERS: BED, CHAIR, WHEELCHAIR - STEP 2: Does the patient require the assistance of a helper? Yes. TRANSFERS: BED, CHAIR, WHEELCHAIR - STEP 3: How much assistance does the patient require from the helper? Lifting of the legs TRANSFERS: BED, CHAIR, WHEELCHAIR - STEP 4: How many legs does the patient require the helper to lift? both legs TRANSFERS: BED, CHAIR, WHEELCHAIR - SCORE: 3-MOD TRANSFERS: TOILET: TRANSFERS: TOILET - STEP 1: Does the patient require the assistance of a person or device, or need extra time with toilet transfe rs? Yes. TRANSFERS: TOILET - STEP 2: Does the patient require the assistance of a helper? Yes. TRANSFERS: TOILET - STEP 3: How much assistance does the patient require from the helper? Patient performs half or more of the tr ansferring tasks TRANSFERS: TOILET - STEP 4: Does the patient need only incidental help such as contact guard or steadying during toilet transfer? No. Patient needs more than incidental help TRANSFERS: TOILET - SCORE: 3-MOD TRANSFERS: SHOWER: Activity did not occur on this shift TRANSFERS: SHOWER - SCORE: 0-UNK TRANSFERS: TUB: Activity did not occur on this shift TRANSFERS: TUB - SCORE: 0-UNK LOCOMOTION: WALK: Activity did not occur on this shift LOCOMOTION: WALK - SCORE: 0-UNK LOCOMOTION: WHEELCHAIR: Activity did not occur on this shift LOCOMOTION: WHEELCHAIR - SCORE: 0-UNK COMPREHENSION: COMPREHENSION: TYPE: Both COMPREHENSION - STEP 1: Does the patient require help from a person or device, or need extra time to understand complex and a bstract ideas (such as current events, finances, discharge planning, medical issues, relationships, e tc)? No. COMPREHENSION - STEP 2: Does the patient need extra time, require an assistive device (such as glasses for visual comprehensi on or a hearing aid for auditory comprehension) or does s/he have mild difficulty understanding compl ex and abstract information? Yes. COMPREHENSION - SCORE: 6-SUSANA EXPRESSION EXPRESSION: TYPE: Both EXPRESSION - STEP 1: Does the patient require help from a person or device, or need extra time expressing complex and abst ract ideas (such as current events, finances, discharge planning, medical issues, relationships, etc) ? No. EXPRESSION - STEP 2: Does the patient need extra time, require an assistive device (such as augmentive communication syste m or a communication board), OR does s/he have mild difficulty expressing complex and abstract ideas (including mild dysarthria or mild word-find problems)? Yes. EXPRESSION - SCORE: 6-SUSANA SOCIAL INTERACTION: SOCIAL INTERACTION - STEP 1: Does the patient require a helper to interact with others in social and therapeutic situations? No. SOCIAL INTERACTION - STEP 2: Does the patient need extra time in social situations, OR does s/he interact with staff, other patien ts, and family members ONLY in structured environments, OR does s/he require medication for social in teraction? Yes, patient needs extra time SOCIAL INTERACTION - SCORE: 6-SUSANA PROBLEM SOLVING: PROBLEM SOLVING - STEP 1: Does the patient need help from a person or device, or need extra time to solve complex problems such as managing a checking account or confronting interpersonal problems? No. PROBLEM SOLVING - STEP 2: Does the patient require extra time to make decisions or solve problems, OR does s/he have slight dif ficulty reading, initiating, or self-correcting in unfamiliar situations? Yes, patient needs extra ti me. PROBLEM SOLVING - SCORE: 6-SUSANA MEMORY: MEMORY - STEP 1: Does the patient need help from a person or device, or need extra time to remember frequently encount ered people, daily routines, and executing requests? No. MEMORY - STEP 2: Does the patient have slight difficulty recognizing frequently encountered people, daily routines, or executing requests without the need for repetition or using self-initiated or environmental cues to remember? Yes. MEMORY - SCORE: 6-SUSANA
[2018-07-21] MEDS: PANTOPRAZOLE 40MG TABLET PO SCH (05:22)
[2018-07-21] MEDS: LEVOTHYROXINE SOD 0.075 MG TAB PO SCH (05:22)
[2018-07-21] MEDS: NYSTATIN PWDR 100000 UNIT/GM TOP SCH ×2 (08:00→20:00)
[2018-07-21] MEDS: CRANBERRY FRUIT EXTRACT 200 MG CAP PO SCH ×2 (08:00→20:04)
[2018-07-21] MEDS: PROMOD 30 ML DOSE PO SCH ×2 (08:00→20:05)
[2018-07-21] MEDS: LIDOCAINE 5% PATCH TOP SCH (08:37)
[2018-07-21] MEDS: GABAPENTIN 300 MG CAP PO SCH ×2 (08:37→20:05)
[2018-07-21] MEDS: AMLODIPINE 5 MG TAB PO SCH (08:38)
[2018-07-21] MEDS: BACLOFEN 10 MG TAB PO SCH ×2 (08:38→20:05)
[2018-07-21] MEDS: FERROUS SULFATE 325 MG TAB PO SCH (08:39)
[2018-07-21] MEDS: VENLAFAXINE HCL XR 75 MG CAP PO SCH (08:39)
[2018-07-21] MEDS: hydroCHLOROthiazide 25 MG TAB PO SCH (08:39)
[2018-07-21] MEDS: LISINOPRIL 20 MG TAB PO SCH (08:39)
[2018-07-21] MEDS: DULOXETINE 20 MG CAP PO SCH (08:40)
[2018-07-21] MEDS: RIVAROXABAN 15 MG TABLET PO SCH (08:40)
[2018-07-21] MEDS: SOLIFENACIN SUCCIN 5 MG TAB PO SCH (08:40)
[2018-07-21] MEDS: MAGNESIUM OXIDE 400 MG TAB PO SCH ×2 (08:40→20:05)
[2018-07-21] MEDS: FE SULF/FA/VIT B COMP & C TAB PO SCH (08:40)
[2018-07-21] MEDS: ACETAMINOPHEN 500 MG TAB PO PRN ×3 (08:41→22:10)
[2018-07-21] MEDS: TRAMADOL HCL 50 MG TAB PO PRN ×2 (14:31→19:13)
--- NOTE | 2018-07-21 14:50 | FAST ---
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 Rambo De La Rosa M.D. ADMISSION DIAGNOSIS: - Orthopaedic Disorders 08 - Unilateral Hip Fracture (08.11) Left Hip Fracture. EATING: EATING - STEP 1: Does the patient require the assistance of a person or device, or need extra time when eating? Yes. EATING - STEP 2: Does the patient require the assistance of a helper? No, patient only requires an assistive device, O R s/he takes more than reasonable time to eat, OR there is a safety concern, OR s/he requires modifie d food consistency EATING - SCORE: 6-SUSANA GROOMING: Comb/brush hair Oral care Wash, rinse, and dry face Wash, rinse, and dry hands GROOMING - STEP 1: Does the patient require the assistance of a person or device, or need extra time when grooming? Yes. GROOMING - STEP 2: Does the patient require the assistance of a helper? No. The patient only requires an assistive devic e, OR takes more than reasonable time to groom, OR there is a concern for safety as the patient groom s GROOMING - SCORE: 6-SUSANA BATHING: Activity did not occur on this shift BATHING - SCORE: 0-UNK DRESSING - UPPER BODY: T-shirt/pullover shirt (four steps) ARTICLES SCORE Total number of steps: 4 DRESSING - UPPER BODY - STEP 1: Does the patient require help from a person or device, or need extra time when dressing above the [address]? Yes. DRESSING - UPPER BODY - STEP 2: Does the patient require the assistance of a helper? Yes. DRESSING - UPPER BODY - STEP 3: Does the helper touch the patient while dressing? No. DRESSING - UPPER BODY - SCORE: 5-SUP DRESSING - LOWER BODY: Slip-on shoe - Left foot (one step) Slip-on shoe - Right foot (one step) Underwear (three steps) ARTICLES SCORE Total number of steps: 5 DRESSING - LOWER BODY - STEP 1: Does the patient require help from a person or device, or need extra time when dressing below the [address]? Yes. DRESSING - LOWER BODY - STEP 2: Does the patient require the assistance of a helper? Yes. DRESSING - LOWER BODY - STEP 3: Does the helper touch the patient while dressing? No. DRESSING - LOWER BODY - SCORE: 5-SUP TOILETING: TOILETING - STEP 1: Does the patient require the assistance of a person or device, or need extra time with toileting? Yes . TOILETING - STEP 2: Does the patient require the assistance of a helper? Yes. TOILETING - STEP 3: How much assistance does the patient require from the helper? Hands-on assistance from the helper TOILETING - STEP 4: Of the 3 tasks: 1) Adjusting clothing prior to use, 2) Cleansing of perineal area, 3) Adjusting clot penny after use; How many tasks does the patient perform WITHOUT assistance of the helper? Two tasks TOILETING - SCORE: 3-MOD BLADDER MANAGEMENT: [place] removes incontinent device (Depends, pull ups, etc.); cleans the patient after accident / inco ntinent episode; and, applies new incontinent device. BLADDER MANAGEMENT - SCORE: 1-DEP BLADDER MANAGEMENT - FREQUENCY OF ACCIDENTS: BLADDER MANAGEMENT(FA) - STEP 1: How many accidents has the patient had during the current shift? 3 BOWEL MANAGEMENT: Activity did not occur on this shift BOWEL MANAGEMENT - SCORE: 7-IND BOWEL MANAGEMENT - FREQUENCY OF ACCIDENTS: BOWEL MANAGEMENT(FA) - STEP 1: How many accidents has the patient had during the current shift? 0 TRANSFERS: BED, CHAIR, WHEELCHAIR: TRANSFERS: BED, CHAIR, WHEELCHAIR - STEP 1: Does the patient require assistance of a person or device, or need extra time with bed, chair, or whe elchair transfers? Yes. TRANSFERS: BED, CHAIR, WHEELCHAIR - STEP 2: Does the patient require the assistance of a helper? Yes. TRANSFERS: BED, CHAIR, WHEELCHAIR - STEP 3: How much assistance does the patient require from the helper? Lifting of the legs TRANSFERS: BED, CHAIR, WHEELCHAIR - STEP 4: How many legs does the patient require the helper to lift? both legs TRANSFERS: BED, CHAIR, WHEELCHAIR - SCORE: 3-MOD TRANSFERS: TOILET: TRANSFERS: TOILET - STEP 1: Does the patient require the assistance of a person or device, or need extra time with toilet transfe rs? Yes. TRANSFERS: TOILET - STEP 2: Does the patient require the assistance of a helper? Yes. TRANSFERS: TOILET - STEP 3: How much assistance does the patient require from the helper? Patient performs half or more of the tr ansferring tasks TRANSFERS: TOILET - STEP 4: Does the patient need only incidental help such as contact guard or steadying during toilet transfer? No. Patient needs more than incidental help TRANSFERS: TOILET - SCORE: 3-MOD TRANSFERS: SHOWER: Activity did not occur on this shift TRANSFERS: SHOWER - SCORE: 0-UNK TRANSFERS: TUB: Activity did not occur on this shift TRANSFERS: TUB - SCORE: 0-UNK LOCOMOTION: WALK: Activity did not occur on this shift LOCOMOTION: WALK - SCORE: 0-UNK LOCOMOTION: WHEELCHAIR: LOCOMOTION: WHEELCHAIR - STEP 1: Does the patient need help to go 150 feet in a wheelchair? No. LOCOMOTION: WHEELCHAIR - SCORE: 6-SUSANA COMPREHENSION: COMPREHENSION: TYPE: Both COMPREHENSION - STEP 1: Does the patient require help from a person or device, or need extra time to understand complex and a bstract ideas (such as current events, finances, discharge planning, medical issues, relationships, e tc)? No. COMPREHENSION - STEP 2: Does the patient need extra time, require an assistive device (such as glasses for visual comprehensi on or a hearing aid for auditory comprehension) or does s/he have mild difficulty understanding compl ex and abstract information? Yes. COMPREHENSION - SCORE: 6-SUSANA EXPRESSION EXPRESSION: TYPE: Both EXPRESSION - STEP 1: Does the patient require help from a person or device, or need extra time expressing complex and abst ract ideas (such as current events, finances, discharge planning, medical issues, relationships, etc) ? No. EXPRESSION - STEP 2: Does the patient need extra time, require an assistive device (such as augmentive communication syste m or a communication board), OR does s/he have mild difficulty expressing complex and abstract ideas (including mild dysarthria or mild word-find problems)? Yes. EXPRESSION - SCORE: 6-SUSANA SOCIAL INTERACTION: SOCIAL INTERACTION - STEP 1: Does the patient require a helper to interact with others in social and therapeutic situations? No. SOCIAL INTERACTION - STEP 2: Does the patient need extra time in social situations, OR does s/he interact with staff, other patien ts, and family members ONLY in structured environments, OR does s/he require medication for social in teraction? Yes, patient needs extra time SOCIAL INTERACTION - SCORE: 6-SUSANA PROBLEM SOLVING: PROBLEM SOLVING - STEP 1: Does the patient need help from a person or device, or need extra time to solve complex problems such as managing a checking account or confronting interpersonal problems? No. PROBLEM SOLVING - STEP 2: Does the patient require extra time to make decisions or solve problems, OR does s/he have slight dif ficulty reading, initiating, or self-correcting in unfamiliar situations? Yes, patient needs extra ti me. PROBLEM SOLVING - SCORE: 6-SUSANA MEMORY: MEMORY - STEP 1: Does the patient need help from a person or device, or need extra time to remember frequently encount ered people, daily routines, and executing requests? No. MEMORY - STEP 2: Does the patient have slight difficulty recognizing frequently encountered people, daily routines, or executing requests without the need for repetition or using self-initiated or environmental cues to remember? Yes. MEMORY - SCORE: 6-SUSANA SIGNATURE PANEL: The following modified sections: Eating - Score, Grooming - Score, Bathing - Score, Dressing - Upper Body - Score, Dressing - Lower Body - Score, Toileting - Score, Bladder Management - Score, Bowel Man agement - Score, Transfers: Bed, Chair, Wheelchair - Score, Transfers: Toilet - Score, Transfers: Rubi wer - Score, Transfers: Tub - Score, Locomotion: Walk - Score, Locomotion: Wheelchair - Score, Compre hension - Score, Expression - Score, Social Interaction - Score, Problem Solving - Score, Memory - Sc ore were [electronically] signed by Lillian Colby C.N.A. on MonJul 21 2018 14:49:32 GMT-0500 (Centra l Daylight Time)
[2018-07-21] MEDS: MELATONIN 3 MG TABLET PO PRN (20:46)
[2018-07-21] MEDS: DOCUSATE NA/SENNA CONC 1 TAB PO SCH (20:46)
[2018-07-21] MEDS: PRAMIPEXOLE 0.25 MG TAB PO SCH (20:46)
--- NOTE | 2018-07-22 03:03 | FAST ---
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 Rambo De La Rosa M.D. ADMISSION DIAGNOSIS: - Orthopaedic Disorders 08 - Unilateral Hip Fracture (08.11) Left Hip Fracture. EATING: Activity did not occur on this shift EATING - SCORE: 0-UNK GROOMING: Activity did not occur on this shift GROOMING - SCORE: 0-UNK BATHING: Activity did not occur on this shift BATHING - SCORE: 0-UNK DRESSING - UPPER BODY: Patient is not dressing in public clothing ARTICLES SCORE Total number of steps: 0 DRESSING - UPPER BODY - SCORE: 0-UNK DRESSING - LOWER BODY: Patient is not dressing in public clothing ARTICLES SCORE Total number of steps: 0 DRESSING - LOWER BODY - SCORE: 0-UNK TOILETING: TOILETING - STEP 1: Does the patient require the assistance of a person or device, or need extra time with toileting? Yes . TOILETING - STEP 2: Does the patient require the assistance of a helper? Yes. TOILETING - STEP 3: How much assistance does the patient require from the helper? Hands-on assistance from the helper TOILETING - STEP 4: Of the 3 tasks: 1) Adjusting clothing prior to use, 2) Cleansing of perineal area, 3) Adjusting clot penny after use; How many tasks does the patient perform WITHOUT assistance of the helper? One task TOILETING - SCORE: 2-MAX BLADDER MANAGEMENT: Eliot removes incontinent device (Depends, pull ups, etc.); cleans the patient after accident / inco ntinent episode; and, applies new incontinent device. BLADDER MANAGEMENT - SCORE: 1-DEP BOWEL MANAGEMENT: Activity did not occur on this shift BOWEL MANAGEMENT - SCORE: 7-IND TRANSFERS: BED, CHAIR, WHEELCHAIR: TRANSFERS: BED, CHAIR, WHEELCHAIR - STEP 1: Does the patient require assistance of a person or device, or need extra time with bed, chair, or whe elchair transfers? Yes. TRANSFERS: BED, CHAIR, WHEELCHAIR - STEP 2: Does the patient require the assistance of a helper? Yes. TRANSFERS: BED, CHAIR, WHEELCHAIR - STEP 3: How much assistance does the patient require from the helper? Lifting of the legs TRANSFERS: BED, CHAIR, WHEELCHAIR - STEP 4: How many legs does the patient require the helper to lift? both legs TRANSFERS: BED, CHAIR, WHEELCHAIR - SCORE: 3-MOD TRANSFERS: TOILET: TRANSFERS: TOILET - STEP 1: Does the patient require the assistance of a person or device, or need extra time with toilet transfe rs? Yes. TRANSFERS: TOILET - STEP 2: Does the patient require the assistance of a helper? Yes. TRANSFERS: TOILET - STEP 3: How much assistance does the patient require from the helper? Patient performs half or more of the tr ansferring tasks TRANSFERS: TOILET - STEP 4: Does the patient need only incidental help such as contact guard or steadying during toilet transfer? Yes. TRANSFERS: TOILET - SCORE: 4-MIN TRANSFERS: SHOWER: Activity did not occur on this shift TRANSFERS: SHOWER - SCORE: 0-UNK TRANSFERS: TUB: Activity did not occur on this shift TRANSFERS: TUB - SCORE: 0-UNK LOCOMOTION: WALK: Activity did not occur on this shift LOCOMOTION: WALK - SCORE: 0-UNK LOCOMOTION: WHEELCHAIR: Activity did not occur on this shift LOCOMOTION: WHEELCHAIR - SCORE: 0-UNK COMPREHENSION: COMPREHENSION: TYPE: Both COMPREHENSION - STEP 1: Does the patient require help from a person or device, or need extra time to understand complex and a bstract ideas (such as current events, finances, discharge planning, medical issues, relationships, e tc)? Yes. COMPREHENSION - STEP 2: Does the patient require help to understand questions or statements about basic needs or ideas (such as hunger, thirst, sleep, safety, daily schedule, room location, or discomfort) half or more of the t meche? No. COMPREHENSION - STEP 3: How often does the patient need help to understand directions and conversation about basic needs? 10% - 24% of the time COMPREHENSION - SCORE: 4-MIN EXPRESSION EXPRESSION: TYPE: Both EXPRESSION - STEP 1: Does the patient require help from a person or device, or need extra time expressing complex and abst ract ideas (such as current events, finances, discharge planning, medical issues, relationships, etc) ? No. EXPRESSION - STEP 2: Does the patient need extra time, require an assistive device (such as augmentive communication syste m or a communication board), OR does s/he have mild difficulty expressing complex and abstract ideas (including mild dysarthria or mild word-find problems)? Yes. EXPRESSION - SCORE: 6-SUSANA SOCIAL INTERACTION: SOCIAL INTERACTION - STEP 1: Does the patient require a helper to interact with others in social and therapeutic situations? No. SOCIAL INTERACTION - STEP 2: Does the patient need extra time in social situations, OR does s/he interact with staff, other patien ts, and family members ONLY in structured environments, OR does s/he require medication for social in teraction? Yes, patient requires medication for social interaction SOCIAL INTERACTION - SCORE: 6-SUSANA PROBLEM SOLVING: PROBLEM SOLVING - STEP 1: Does the patient need help from a person or device, or need extra time to solve complex problems such as managing a checking account or confronting interpersonal problems? Yes. PROBLEM SOLVING - STEP 2: Does the patient solve basic routine problems half or more of the time? Yes. PROBLEM SOLVING - STEP 3: How often does the patient need help to solve basic routine problems? 10%-24% of the time PROBLEM SOLVING - SCORE: 4-MIN MEMORY: MEMORY - STEP 1: Does the patient need help from a person or device, or need extra time to remember frequently encount ered people, daily routines, and executing requests? No. MEMORY - STEP 2: Does the patient have slight difficulty recognizing frequently encountered people, daily routines, or executing requests without the need for repetition or using self-initiated or environmental cues to remember? Yes. MEMORY - SCORE: 6-SUSANA SIGNATURE PANEL: The following modified sections: Eating - Score, Grooming - Score, Dressing - Upper Body - Score, Kenny ssing - Lower Body - Score, Toileting - Score, Bladder Management - Score, Bowel Management - Score, Transfers: Bed, Chair, Wheelchair - Score, Transfers: Toilet - Score, Transfers: Shower - Score, Bello sfers: Tub - Score, Locomotion: Walk - Score, Locomotion: Wheelchair - Score, Comprehension - Score, Expression - Score, Social Interaction - Score, Problem Solving - Score, Memory - Score were [electro nically] signed by Viri Pretty CNA on MonJul 22 2018 03:02:24 GMT-0500 (Central Daylight Time)
[2018-07-22] MEDS: TRAMADOL HCL 50 MG TAB PO PRN ×2 (04:38→14:12)
[2018-07-22] MEDS: LEVOTHYROXINE SOD 0.075 MG TAB PO SCH (06:53)
[2018-07-22] MEDS: PANTOPRAZOLE 40MG TABLET PO SCH (06:53)
[2018-07-22] MEDS: NYSTATIN PWDR 100000 UNIT/GM TOP SCH ×2 (08:00→19:20)
[2018-07-22] MEDS: AMLODIPINE 5 MG TAB PO SCH (08:31)
[2018-07-22] MEDS: GABAPENTIN 300 MG CAP PO SCH ×2 (08:31→19:20)
[2018-07-22] MEDS: SOLIFENACIN SUCCIN 5 MG TAB PO SCH (08:31)
[2018-07-22] MEDS: FERROUS SULFATE 325 MG TAB PO SCH (08:32)
[2018-07-22] MEDS: BACLOFEN 10 MG TAB PO SCH ×2 (08:32→19:20)
[2018-07-22] MEDS: VENLAFAXINE HCL XR 75 MG CAP PO SCH (08:33)
[2018-07-22] MEDS: MAGNESIUM OXIDE 400 MG TAB PO SCH ×2 (08:33→19:20)
[2018-07-22] MEDS: DULOXETINE 20 MG CAP PO SCH (08:33)
[2018-07-22] MEDS: FE SULF/FA/VIT B COMP & C TAB PO SCH (08:33)
[2018-07-22] MEDS: LISINOPRIL 20 MG TAB PO SCH (08:34)
[2018-07-22] MEDS: RIVAROXABAN 15 MG TABLET PO SCH (08:34)
[2018-07-22] MEDS: CRANBERRY FRUIT EXTRACT 200 MG CAP PO SCH ×2 (08:34→19:20)
[2018-07-22] MEDS: hydroCHLOROthiazide 25 MG TAB PO SCH (08:35)
[2018-07-22] MEDS: LIDOCAINE 5% PATCH TOP SCH (08:35)
[2018-07-22] MEDS: PROMOD 30 ML DOSE PO SCH ×2 (08:37→19:21)
[2018-07-22] MEDS: ACETAMINOPHEN 500 MG TAB PO PRN ×2 (12:07→20:47)
--- NOTE | 2018-07-22 14:33 | FAST ---
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 Rambo De La Rosa M.D. ADMISSION DIAGNOSIS: - Orthopaedic Disorders 08 - Unilateral Hip Fracture (08.11) Left Hip Fracture. EATING: EATING - STEP 1: Does the patient require the assistance of a person or device, or need extra time when eating? Yes. EATING - STEP 2: Does the patient require the assistance of a helper? No, patient only requires an assistive device, O R s/he takes more than reasonable time to eat, OR there is a safety concern, OR s/he requires modifie d food consistency EATING - SCORE: 6-SUSANA GROOMING: Comb/brush hair Oral care Wash, rinse, and dry face Wash, rinse, and dry hands GROOMING - STEP 1: Does the patient require the assistance of a person or device, or need extra time when grooming? Yes. GROOMING - STEP 2: Does the patient require the assistance of a helper? No. The patient only requires an assistive devic e, OR takes more than reasonable time to groom, OR there is a concern for safety as the patient groom s GROOMING - SCORE: 6-SUSANA BATHING: Activity did not occur on this shift BATHING - SCORE: 0-UNK DRESSING - UPPER BODY: T-shirt/pullover shirt (four steps) ARTICLES SCORE Total number of steps: 4 DRESSING - UPPER BODY - STEP 1: Does the patient require help from a person or device, or need extra time when dressing above the [address]? Yes. DRESSING - UPPER BODY - STEP 2: Does the patient require the assistance of a helper? Yes. DRESSING - UPPER BODY - STEP 3: Does the helper touch the patient while dressing? No. DRESSING - UPPER BODY - SCORE: 5-SUP DRESSING - LOWER BODY: Slip-on shoe - Left foot (one step) Slip-on shoe - Right foot (one step) Underwear (three steps) ARTICLES SCORE Total number of steps: 5 DRESSING - LOWER BODY - STEP 1: Does the patient require help from a person or device, or need extra time when dressing below the [address] st? Yes. DRESSING - LOWER BODY - STEP 2: Does the patient require the assistance of a helper? Yes. DRESSING - LOWER BODY - STEP 3: Does the helper touch the patient while dressing? No. DRESSING - LOWER BODY - SCORE: 5-SUP TOILETING: TOILETING - STEP 1: Does the patient require the assistance of a person or device, or need extra time with toileting? Yes . TOILETING - STEP 2: Does the patient require the assistance of a helper? Yes. TOILETING - STEP 3: How much assistance does the patient require from the helper? Hands-on assistance from the helper TOILETING - STEP 4: Of the 3 tasks: 1) Adjusting clothing prior to use, 2) Cleansing of perineal area, 3) Adjusting clot penny after use; How many tasks does the patient perform WITHOUT assistance of the helper? Two tasks TOILETING - SCORE: 3-MOD BLADDER MANAGEMENT: Superior removes incontinent device (Depends, pull ups, etc.); cleans the patient after accident / inco ntinent episode; and, applies new incontinent device. BLADDER MANAGEMENT - SCORE: 1-DEP BLADDER MANAGEMENT - FREQUENCY OF ACCIDENTS: BLADDER MANAGEMENT(FA) - STEP 1: How many accidents has the patient had during the current shift? 3 BOWEL MANAGEMENT: Activity did not occur on this shift BOWEL MANAGEMENT - SCORE: 7-IND BOWEL MANAGEMENT - FREQUENCY OF ACCIDENTS: BOWEL MANAGEMENT(FA) - STEP 1: How many accidents has the patient had during the current shift? 0 TRANSFERS: BED, CHAIR, WHEELCHAIR: TRANSFERS: BED, CHAIR, WHEELCHAIR - STEP 1: Does the patient require assistance of a person or device, or need extra time with bed, chair, or whe elchair transfers? Yes. TRANSFERS: BED, CHAIR, WHEELCHAIR - STEP 2: Does the patient require the assistance of a helper? Yes. TRANSFERS: BED, CHAIR, WHEELCHAIR - STEP 3: How much assistance does the patient require from the helper? Lifting of the legs TRANSFERS: BED, CHAIR, WHEELCHAIR - STEP 4: How many legs does the patient require the helper to lift? both legs TRANSFERS: BED, CHAIR, WHEELCHAIR - SCORE: 3-MOD TRANSFERS: TOILET: TRANSFERS: TOILET - STEP 1: Does the patient require the assistance of a person or device, or need extra time with toilet transfe rs? Yes. TRANSFERS: TOILET - STEP 2: Does the patient require the assistance of a helper? Yes. TRANSFERS: TOILET - STEP 3: How much assistance does the patient require from the helper? Patient performs half or more of the tr ansferring tasks TRANSFERS: TOILET - STEP 4: Does the patient need only incidental help such as contact guard or steadying during toilet transfer? No. Patient needs more than incidental help TRANSFERS: TOILET - SCORE: 3-MOD TRANSFERS: SHOWER: Activity did not occur on this shift TRANSFERS: SHOWER - SCORE: 0-UNK TRANSFERS: TUB: Activity did not occur on this shift TRANSFERS: TUB - SCORE: 0-UNK LOCOMOTION: WALK: Activity did not occur on this shift LOCOMOTION: WALK - SCORE: 0-UNK LOCOMOTION: WHEELCHAIR: LOCOMOTION: WHEELCHAIR - STEP 1: Does the patient need help to go 150 feet in a wheelchair? Yes. LOCOMOTION: WHEELCHAIR - STEP 2: How much assistance does the patient need from the helper? Only incidental help such as around corner s or over thresholds LOCOMOTION: WHEELCHAIR - SCORE: 4-MIN COMPREHENSION: COMPREHENSION: TYPE: Both COMPREHENSION - STEP 1: Does the patient require help from a person or device, or need extra time to understand complex and a bstract ideas (such as current events, finances, discharge planning, medical issues, relationships, e tc)? No. COMPREHENSION - STEP 2: Does the patient need extra time, require an assistive device (such as glasses for visual comprehensi on or a hearing aid for auditory comprehension) or does s/he have mild difficulty understanding compl ex and abstract information? Yes. COMPREHENSION - SCORE: 6-SUSANA EXPRESSION EXPRESSION: TYPE: Both EXPRESSION - STEP 1: Does the patient require help from a person or device, or need extra time expressing complex and abst ract ideas (such as current events, finances, discharge planning, medical issues, relationships, etc) ? No. EXPRESSION - STEP 2: Does the patient need extra time, require an assistive device (such as augmentive communication syste m or a communication board), OR does s/he have mild difficulty expressing complex and abstract ideas (including mild dysarthria or mild word-find problems)? Yes. EXPRESSION - SCORE: 6-SUSANA SOCIAL INTERACTION: SOCIAL INTERACTION - STEP 1: Does the patient require a helper to interact with others in social and therapeutic situations? No. SOCIAL INTERACTION - STEP 2: Does the patient need extra time in social situations, OR does s/he interact with staff, other patien ts, and family members ONLY in structured environments, OR does s/he require medication for social in teraction? Yes, patient needs extra time SOCIAL INTERACTION - SCORE: 6-SUSANA PROBLEM SOLVING: PROBLEM SOLVING - STEP 1: Does the patient need help from a person or device, or need extra time to solve complex problems such as managing a checking account or confronting interpersonal problems? No. PROBLEM SOLVING - STEP 2: Does the patient require extra time to make decisions or solve problems, OR does s/he have slight dif ficulty reading, initiating, or self-correcting in unfamiliar situations? Yes, patient needs extra ti me. PROBLEM SOLVING - SCORE: 6-SUSANA MEMORY: MEMORY - STEP 1: Does the patient need help from a person or device, or need extra time to remember frequently encount ered people, daily routines, and executing requests? No. MEMORY - STEP 2: Does the patient have slight difficulty recognizing frequently encountered people, daily routines, or executing requests without the need for repetition or using self-initiated or environmental cues to remember? Yes. MEMORY - SCORE: 6-SUSANA SIGNATURE PANEL: The following modified sections: Eating - Score, Grooming - Score, Bathing - Score, Dressing - Upper Body - Score, Dressing - Lower Body - Score, Toileting - Score, Bladder Management - Score, Bowel Man agement - Score, Transfers: Bed, Chair, Wheelchair - Score, Transfers: Toilet - Score, Transfers: Rubi wer - Score, Transfers: Tub - Score, Locomotion: Walk - Score, Locomotion: Wheelchair - Score, Compre hension - Score, Expression - Score, Social Interaction - Score, Problem Solving - Score, Memory - Sc ore were [electronically] signed by Lillian Colby C.N.A. on MonJul 22 2018 14:32:54 T-0500 (Centra l Daylight Time)
[2018-07-22] MEDS: PRAMIPEXOLE 0.25 MG TAB PO SCH (20:47)
[2018-07-22] MEDS: MELATONIN 3 MG TABLET PO PRN (20:47)
[2018-07-22] MEDS: DOCUSATE NA/SENNA CONC 1 TAB PO SCH (20:47)
[2018-07-23] MEDS: LEVOTHYROXINE SOD 0.075 MG TAB PO SCH (06:14)
[2018-07-23] MEDS: PANTOPRAZOLE 40MG TABLET PO SCH (06:14)
[2018-07-23] MEDS: ACETAMINOPHEN 500 MG TAB PO PRN ×2 (06:14→15:29)
[2018-07-23] MEDS: CRANBERRY FRUIT EXTRACT 200 MG CAP PO SCH ×2 (08:00→19:21)
[2018-07-23] MEDS: NYSTATIN PWDR 100000 UNIT/GM TOP SCH ×2 (08:00→19:20)
[2018-07-23] MEDS: GABAPENTIN 300 MG CAP PO SCH ×2 (08:09→19:21)
[2018-07-23] MEDS: FE SULF/FA/VIT B COMP & C TAB PO SCH (08:10)
[2018-07-23] MEDS: FERROUS SULFATE 325 MG TAB PO SCH (08:10)
[2018-07-23] MEDS: LIDOCAINE 5% PATCH TOP SCH (08:10)
[2018-07-23] MEDS: VENLAFAXINE HCL XR 75 MG CAP PO SCH (08:12)
[2018-07-23] MEDS: BACLOFEN 10 MG TAB PO SCH ×2 (08:12→19:20)
[2018-07-23] MEDS: SOLIFENACIN SUCCIN 5 MG TAB PO SCH (08:12)
[2018-07-23] MEDS: MAGNESIUM OXIDE 400 MG TAB PO SCH ×2 (08:12→19:21)
[2018-07-23] MEDS: DULOXETINE 20 MG CAP PO SCH (08:12)
[2018-07-23] MEDS: RIVAROXABAN 15 MG TABLET PO SCH (08:13)
[2018-07-23] MEDS: hydroCHLOROthiazide 25 MG TAB PO SCH (08:13)
[2018-07-23] MEDS: PROMOD 30 ML DOSE PO SCH ×2 (08:14→19:19)
[2018-07-23] MEDS: LISINOPRIL 20 MG TAB PO SCH (08:14)
[2018-07-23] MEDS: AMLODIPINE 5 MG TAB PO SCH (08:14)
[2018-07-23] MEDS: TRAMADOL HCL 50 MG TAB PO PRN ×2 (11:54→21:22)
--- NOTE | 2018-07-23 13:44 | FAST ---
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 Rambo De La Rosa M.D. ADMISSION DIAGNOSIS: - Orthopaedic Disorders 08 - Unilateral Hip Fracture (08.11) Left Hip Fracture. EATING: EATING - STEP 1: Does the patient require the assistance of a person or device, or need extra time when eating? Yes. EATING - STEP 2: Does the patient require the assistance of a helper? No, patient only requires an assistive device, O R s/he takes more than reasonable time to eat, OR there is a safety concern, OR s/he requires modifie d food consistency EATING - SCORE: 6-SUSANA GROOMING: Comb/brush hair Oral care Wash, rinse, and dry face Wash, rinse, and dry hands GROOMING - STEP 1: Does the patient require the assistance of a person or device, or need extra time when grooming? Yes. GROOMING - STEP 2: Does the patient require the assistance of a helper? Yes. GROOMING - STEP 3: How much assistance does the patient require from the helper? Only prior equipment preparation/set up from the helper GROOMING - SCORE: 5-SUP BATHING: Activity did not occur on this shift BATHING - SCORE: 0-UNK DRESSING - UPPER BODY: Activity did not occur on this shift ARTICLES SCORE Total number of steps: 0 DRESSING - UPPER BODY - SCORE: 0-UNK DRESSING - LOWER BODY: Activity did not occur on this shift ARTICLES SCORE Total number of steps: 0 DRESSING - LOWER BODY - SCORE: 0-UNK TOILETING: TOILETING - STEP 1: Does the patient require the assistance of a person or device, or need extra time with toileting? Yes . TOILETING - STEP 2: Does the patient require the assistance of a helper? Yes. TOILETING - STEP 3: How much assistance does the patient require from the helper? Hands-on assistance from the helper TOILETING - STEP 4: Of the 3 tasks: 1) Adjusting clothing prior to use, 2) Cleansing of perineal area, 3) Adjusting clot penny after use; How many tasks does the patient perform WITHOUT assistance of the helper? Three tasks with steadying assistance from the helper TOILETING - SCORE: 4-MIN BLADDER MANAGEMENT: BLADDER MANAGEMENT - STEP 1: Does the patient control the bladder completely and intentionally without equipment or devices or med ications, and is always continent? No. BLADDER MANAGEMENT - STEP 2: Does the patient require the assistance of a helper? No, patient requires and independently uses an a ssistive device, such as a urinal, bedpan, bedside commode, catheter, absorbent pad, or collecting de vice BLADDER MANAGEMENT - SCORE: 6-SUSANA BOWEL MANAGEMENT: Activity did not occur on this shift BOWEL MANAGEMENT - SCORE: 7-IND TRANSFERS: BED, CHAIR, WHEELCHAIR: TRANSFERS: BED, CHAIR, WHEELCHAIR - STEP 1: Does the patient require assistance of a person or device, or need extra time with bed, chair, or whe elchair transfers? Yes. TRANSFERS: BED, CHAIR, WHEELCHAIR - STEP 2: Does the patient require the assistance of a helper? Yes. TRANSFERS: BED, CHAIR, WHEELCHAIR - STEP 3: How much assistance does the patient require from the helper? Steadying/guiding assistance TRANSFERS: BED, CHAIR, WHEELCHAIR - SCORE: 4-MIN TRANSFERS: TOILET: TRANSFERS: TOILET - STEP 1: Does the patient require the assistance of a person or device, or need extra time with toilet transfe rs? Yes. TRANSFERS: TOILET - STEP 2: Does the patient require the assistance of a helper? Yes. TRANSFERS: TOILET - STEP 3: How much assistance does the patient require from the helper? Patient performs half or more of the tr ansferring tasks TRANSFERS: TOILET - STEP 4: Does the patient need only incidental help such as contact guard or steadying during toilet transfer? Yes. TRANSFERS: TOILET - SCORE: 4-MIN TRANSFERS: SHOWER: Activity did not occur on this shift TRANSFERS: SHOWER - SCORE: 0-UNK TRANSFERS: TUB: Activity did not occur on this shift TRANSFERS: TUB - SCORE: 0-UNK LOCOMOTION: WALK: Activity did not occur on this shift LOCOMOTION: WALK - SCORE: 0-UNK LOCOMOTION: WHEELCHAIR: Activity did not occur on this shift LOCOMOTION: WHEELCHAIR - SCORE: 0-UNK COMPREHENSION: COMPREHENSION: TYPE: Both COMPREHENSION - STEP 1: Does the patient require help from a person or device, or need extra time to understand complex and a bstract ideas (such as current events, finances, discharge planning, medical issues, relationships, e tc)? No. COMPREHENSION - STEP 2: Does the patient need extra time, require an assistive device (such as glasses for visual comprehensi on or a hearing aid for auditory comprehension) or does s/he have mild difficulty understanding compl ex and abstract information? Yes. COMPREHENSION - SCORE: 6-SUSANA EXPRESSION EXPRESSION: TYPE: Both EXPRESSION - STEP 1: Does the patient require help from a person or device, or need extra time expressing complex and abst ract ideas (such as current events, finances, discharge planning, medical issues, relationships, etc) ? No. EXPRESSION - STEP 2: Does the patient need extra time, require an assistive device (such as augmentive communication syste m or a communication board), OR does s/he have mild difficulty expressing complex and abstract ideas (including mild dysarthria or mild word-find problems)? Yes. EXPRESSION - SCORE: 6-SUSANA SOCIAL INTERACTION: SOCIAL INTERACTION - STEP 1: Does the patient require a helper to interact with others in social and therapeutic situations? No. SOCIAL INTERACTION - STEP 2: Does the patient need extra time in social situations, OR does s/he interact with staff, other patien ts, and family members ONLY in structured environments, OR does s/he require medication for social in teraction? Yes, patient needs extra time SOCIAL INTERACTION - SCORE: 6-SUSANA PROBLEM SOLVING: PROBLEM SOLVING - STEP 1: Does the patient need help from a person or device, or need extra time to solve complex problems such as managing a checking account or confronting interpersonal problems? No. PROBLEM SOLVING - STEP 2: Does the patient require extra time to make decisions or solve problems, OR does s/he have slight dif ficulty reading, initiating, or self-correcting in unfamiliar situations? Yes, patient needs extra ti me. PROBLEM SOLVING - SCORE: 6-SUSANA MEMORY: MEMORY - STEP 1: Does the patient need help from a person or device, or need extra time to remember frequently encount ered people, daily routines, and executing requests? No. MEMORY - STEP 2: Does the patient have slight difficulty recognizing frequently encountered people, daily routines, or executing requests without the need for repetition or using self-initiated or environmental cues to remember? Yes. MEMORY - SCORE: 6-SUSANA SIGNATURE PANEL: The following modified sections: Eating - Score, Grooming - Score, Bathing - Score, Dressing - Upper Body - Score, Dressing - Lower Body - Score, Toileting - Score, Bladder Management - Score, Bowel Man agement - Score, Transfers: Bed, Chair, Wheelchair - Score, Transfers: Toilet - Score, Transfers: Rubi wer - Score, Transfers: Tub - Score, Locomotion: Walk - Score, Locomotion: Wheelchair - Score, Compre hension - Score, Expression - Score, Social Interaction - Score, Problem Solving - Score, Memory - Sc ore were [electronically] signed by Julio Marin on MonJul 23 2018 13:43:19 T-0500 (Central Daylight Time)
--- NOTE | 2018-07-23 15:16 | RAD REPORT ---
EXAM DESCRIPTION: USExtrem Venous W Compress Bil07/23/2018 3:07 pm CLINICAL HISTORY: Bilateral leg swelling COMPARISON: 2017 FINDINGS: The common femoral, superficial femoral, popliteal and posterior tibial veins bilaterally are compressible and demonstrate augmentation. Doppler demonstrates good flow. IMPRESSION: No evidence of deep venous thrombosis involving either lower extremity.
--- NOTE | 2018-07-23 15:34 | RAD REPORT ---
EXAM DESCRIPTION: US - Lower Extremity Arterial Bilat - 07/23/2018 3:10 pm CLINICAL HISTORY: EARLE Leg pain, claudication COMPARISON: LOW EXT ARTERY UNI LTD dated 10/28/1998 TECHNIQUE: Bilateral lower extremity arterial Doppler examination was performed with waveform tracin g and ankle brachial pressure measurements. FINDINGS: Symmetric brachial pressure measurements are noted. Triphasic waveforms are seen throughout both lower extremity arterial systems to the level of the eduardo salis pedis arteries. Right ankle brachial index measures 1.1, normal. Left ankle brachial index measures 1.0, normal. IMPRESSION: No evidence of significant peripheral vascular disease.
--- NOTE | 2018-07-23 17:44 | R.PN ---
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 Pt denied any Shortness of Breath. Labs reviewed. Hgb 10.5, prealbumin 13.9. Ambulated 75' with standby assistance using a rolling walker. Self-propelled wheelchair 500' with mod ified independence. Using tylenol and tramadol for pain relief. VITAL SIGNS Temperature: 98 F SBP/DBP: 129/60 Pulse: 70 Resp: 16 MEDICATION ALLERGIES: Codeine ENVIRONMENTAL ALLERGIES: None Known - Substance Allergies None Known - Other Allergies None Known NURSING: - Shower allowing shower - Skin care per protocol PRECAUTIONS: - Posterior Hip Precaution No adduction across midline No external rotation No hip flexion >90 degrees No internal rotation No wheel chair propulsion - Weight Bearing Precaution WBAT left LE ACTIVITIES OOB only with supervision THERAPIES: - Occupational Therapy Evaluate and Treat. - Physical Therapy Evaluate and Treat. PHYSICAL EXAM - Gen Alert and awake Lying in bed No apparent distress Oriented to: person, time, and place - Skin No breakdown No abnormalities - Eyes No abnormalities - ENMT No abnormalities - Neck No abnormalities - CVS RRR - Chest No abnormalities - Resp Clear to auscultation - Abd +bowel sounds - GI Soft Deferred - No abnormalities - Ext Left hip surgical site has good hemostasis. - MSK 4+/5 weakness in left lower extremity - Neuro 4/5 strength left lower extremity. - Psych No abnormalities ASSESSMENT: Pt. is a 83 yo Right-handed white female.On 06/29/2018 she was admitted to [facility] with francesca gnosis Left Hip Fracture.Her impairment category is Orthopaedic Disorders 08 - Unilateral Hip Fractu re (08.11).Pre-morbidly, Pt. was independent/mod-I in Self-Care, Sphincter Control, Transfers Control , Communication, Social Cognition, and Locomotion; and she had good Sphincter Control.Currently, she has deficits of Self-Care, Transfers Control, Endurance, Balance, Safety Awareness, and Locomotion.Pt . is now referred to [facility] for acute in-patient rehabilitation in order t o maximize patient's functional independence in activities of daily living, strength, ROM, and mobili ty.- Rehab Goal Patient has realistic goal of being discharged at assistance level 6-Radha to reside at Home with Fam wilmer/Relatives. MDM/PLAN: - Physical Therapy Decreased range of motion - to improve, our physical therapists will perform initial evaluation of p t's status upon admission and devise an individualized program for increasing patient's Range of Gianni on. Gait dysfunction - to improve, our physical therapists will perform initial evaluation of pt's statu s upon admission and devise an individualized program for Gait Training, and Wheel Chair mobility Inability to transfer - to improve, our physical therapists will perform initial evaluation of pt's status upon admission and devise an individualized program for Bed mobility Need for home safety evaluation - to improve, our physical therapists will perform initial evaluatio n of pt's status upon admission and devise an individualized program for Home Evaluation Need in caregiver upon discharge - to improve, our physical therapists will perform initial evaluati on of pt's status upon admission and devise an individualized program for Caregiver Training New precaution - to improve, our physical therapists will perform initial evaluation of pt's status upon admission and devise an individualized program for Patient precaution education Poor balance - to improve, our physical therapists will perform initial evaluation of pt's status up on admission and devise an individualized program for Balance Training Poor endurance - to improve, our physical therapists will perform initial evaluation of pt's status upon admission and devise an individualized program for Endurance Training Weakness - to improve, our physical therapists will perform initial evaluation of pt's status upon a dmission and devise an individualized program for Aquatic Therapy, Neuromuscular Reeducation, and Str engthening Achieving independence - to improve, our physical therapists will perform initial evaluation of pt's status upon admission and devise an individualized program for Community Reintegration Activities - Occupational Therapy ADL deficits - to improve, our occupation therapists will perform initial evaluation of pt's status upon admission and devise an individualized program for Bathing, Bed mobility, Community Reintegratio n, Cooking, Dressing, Eating, Fine Motor Skills, Grooming, Homemaking, Kitchen Mobility, Laundry, Pat ient Education, Safety Awareness, Splinting - Positioning, Transfers(Toilet, Tub, Shower), and Wheel Chair Management Need for care consultant - to improve, our occupation therapists will perform initial evaluation of pt's status upon admission and devise an individualized program for Caregiver Training Weakness - to improve, our occupation therapists will perform initial evaluation of pt's status upon admission and devise an individualized program for Aquatic Therapy, Balance, Endurance, UE ROM, and UE strengthening - Anterior Hip Precaution No abduction No active extension No adduction across midline No external rotation No hip flexion >90 degrees No internal rotation - Diet - Liquid Texture Continue Regular - Tube Feed Continue N/A - Diet Type Continue Regular - Posterior Hip Precaution No adduction across midline No external rotation No hip flexion >90 degrees No internal rotation No wheel chair propulsion - Weight Bearing Precaution WBAT left LE - Skin care per protocol - Diet - Solid Texture Continue Regular - Shower allowing shower FUNCTIONAL STATUS: UPDATED AT WEEKLY TEAM CONFERENCE - Bladder Same accident frequency: 7-Ind - No accidents in the past 7 days - Bowel Same accident frequency: 7-Ind - No accidents in the past 7 days - Walking Same score based on distance walked: 3(>=150ft) FUNCTIONAL STATUS: - Self-Care A. Eating sup B. Grooming sup C. Bathing modA D. Dressing - Upper Maria Isabel E. Dressing - Lower maxA F. Toileting modA - Sphincter Control G: Bladder control Ind H: Bowel control Ind - Transfers Control I. Bed/Chair/Wheelchair Maria Isabel J. Toilet Maria Isabel K. Tub/Shower modA - Locomotion L. Walk/Wheelchair (B) Maria Isabel M. Stairs ADNO - Communication N. Comprehension (B) Radha O. Expression (B) Radha - Social Cognition P. Social Interaction Radha Q. Problem Solving Radha R. Memory Radha - Endurance Fair - Balance Fair - Safety Awareness Fair CURRENT FUNC. DEFICITS: Self-Care, Transfers Control, Endurance, Balance, Safety Awareness, and Locomotion SIGNATURE PANEL: (CDT)
[2018-07-23] MEDS: DOCUSATE NA/SENNA CONC 1 TAB PO SCH (20:12)
[2018-07-23] MEDS: MELATONIN 3 MG TABLET PO PRN (20:12)
[2018-07-23] MEDS: PRAMIPEXOLE 0.25 MG TAB PO SCH (20:12)
--- NOTE | 2018-07-24 03:06 | FAST ---
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 Rambo De La Rosa M.D. ADMISSION DIAGNOSIS: - Orthopaedic Disorders 08 - Unilateral Hip Fracture (08.11) Left Hip Fracture. EATING: Activity did not occur on this shift EATING - SCORE: 0-UNK GROOMING: Activity did not occur on this shift GROOMING - SCORE: 0-UNK BATHING: Activity did not occur on this shift BATHING - SCORE: 0-UNK DRESSING - UPPER BODY: Patient is not dressing in public clothing ARTICLES SCORE Total number of steps: 0 DRESSING - UPPER BODY - SCORE: 0-UNK DRESSING - LOWER BODY: Patient is not dressing in public clothing ARTICLES SCORE Total number of steps: 0 DRESSING - LOWER BODY - SCORE: 0-UNK TOILETING: TOILETING - STEP 1: Does the patient require the assistance of a person or device, or need extra time with toileting? Yes . TOILETING - STEP 2: Does the patient require the assistance of a helper? Yes. TOILETING - STEP 3: How much assistance does the patient require from the helper? Hands-on assistance from the helper TOILETING - STEP 4: Of the 3 tasks: 1) Adjusting clothing prior to use, 2) Cleansing of perineal area, 3) Adjusting clot penny after use; How many tasks does the patient perform WITHOUT assistance of the helper? No tasks; h elper performs all three tasks TOILETING - SCORE: 1-DEP BLADDER MANAGEMENT: Mikana removes incontinent device (Depends, pull ups, etc.); cleans the patient after accident / inco ntinent episode; and, applies new incontinent device. BLADDER MANAGEMENT - SCORE: 1-DEP BOWEL MANAGEMENT: Activity did not occur on this shift BOWEL MANAGEMENT - SCORE: 7-IND TRANSFERS: BED, CHAIR, WHEELCHAIR: Patient requires more than one helper and/or the use of a mechanical lift is utilized TRANSFERS: BED, CHAIR, WHEELCHAIR - SCORE: 1-DEP TRANSFERS: TOILET: Patient requires more than one helper and/or the use of a mechanical lift is utilized TRANSFERS: TOILET - SCORE: 1-DEP TRANSFERS: SHOWER: Activity did not occur on this shift TRANSFERS: SHOWER - SCORE: 0-UNK TRANSFERS: TUB: Activity did not occur on this shift TRANSFERS: TUB - SCORE: 0-UNK LOCOMOTION: WALK: Activity did not occur on this shift LOCOMOTION: WALK - SCORE: 0-UNK LOCOMOTION: WHEELCHAIR: Activity did not occur on this shift LOCOMOTION: WHEELCHAIR - SCORE: 0-UNK COMPREHENSION: COMPREHENSION: TYPE: Both COMPREHENSION - STEP 1: Does the patient require help from a person or device, or need extra time to understand complex and a bstract ideas (such as current events, finances, discharge planning, medical issues, relationships, e tc)? No. COMPREHENSION - STEP 2: Does the patient need extra time, require an assistive device (such as glasses for visual comprehensi on or a hearing aid for auditory comprehension) or does s/he have mild difficulty understanding compl ex and abstract information? Yes. COMPREHENSION - SCORE: 6-SUSANA EXPRESSION EXPRESSION: TYPE: Both EXPRESSION - STEP 1: Does the patient require help from a person or device, or need extra time expressing complex and abst ract ideas (such as current events, finances, discharge planning, medical issues, relationships, etc) ? No. EXPRESSION - STEP 2: Does the patient need extra time, require an assistive device (such as augmentive communication syste m or a communication board), OR does s/he have mild difficulty expressing complex and abstract ideas (including mild dysarthria or mild word-find problems)? No. EXPRESSION - SCORE: 7-IND SOCIAL INTERACTION: SOCIAL INTERACTION - STEP 1: Does the patient require a helper to interact with others in social and therapeutic situations? No. SOCIAL INTERACTION - STEP 2: Does the patient need extra time in social situations, OR does s/he interact with staff, other patien ts, and family members ONLY in structured environments, OR does s/he require medication for social in teraction? No. SOCIAL INTERACTION - SCORE: 7-IND PROBLEM SOLVING: PROBLEM SOLVING - STEP 1: Does the patient need help from a person or device, or need extra time to solve complex problems such as managing a checking account or confronting interpersonal problems? No. PROBLEM SOLVING - STEP 2: Does the patient require extra time to make decisions or solve problems, OR does s/he have slight dif ficulty reading, initiating, or self-correcting in unfamiliar situations? No. PROBLEM SOLVING - SCORE: 7-IND MEMORY: MEMORY - STEP 1: Does the patient need help from a person or device, or need extra time to remember frequently encount ered people, daily routines, and executing requests? No. MEMORY - STEP 2: Does the patient have slight difficulty recognizing frequently encountered people, daily routines, or executing requests without the need for repetition or using self-initiated or environmental cues to remember? No. MEMORY - SCORE: 7-IND SIGNATURE PANEL: The following modified sections: Eating - Score, Grooming - Score, Bathing - Score, Dressing - Upper Body - Score, Dressing - Lower Body - Score, Toileting - Score, Bladder Management - Score, Bowel Man agement - Score, Transfers: Bed, Chair, Wheelchair - Score, Transfers: Toilet - Score, Transfers: Rubi wer - Score, Transfers: Tub - Score, Locomotion: Walk - Score, Locomotion: Wheelchair - Score, Compre hension - Score, Expression - Score, Social Interaction - Score, Problem Solving - Score, Memory - Sc ore were [electronically] signed by Jody Lee CNA on MonJul 24 2018 03:06:13 T-0500 ([facility] Time)
[2018-07-24] MEDS: LEVOTHYROXINE SOD 0.075 MG TAB PO SCH (06:55)
[2018-07-24] MEDS: PANTOPRAZOLE 40MG TABLET PO SCH (06:55)
[2018-07-24] MEDS: NYSTATIN PWDR 100000 UNIT/GM TOP SCH ×2 (07:18→19:36)
[2018-07-24] MEDS: LIDOCAINE 5% PATCH TOP SCH (07:18)
[2018-07-24] MEDS: VENLAFAXINE HCL XR 75 MG CAP PO SCH (08:15)
[2018-07-24] MEDS: AMLODIPINE 5 MG TAB PO SCH (08:16)
[2018-07-24] MEDS: hydroCHLOROthiazide 25 MG TAB PO SCH (08:16)
[2018-07-24] MEDS: DULOXETINE 20 MG CAP PO SCH (08:16)
[2018-07-24] MEDS: FERROUS SULFATE 325 MG TAB PO SCH (08:16)
[2018-07-24] MEDS: CRANBERRY FRUIT EXTRACT 200 MG CAP PO SCH ×2 (08:16→19:36)
[2018-07-24] MEDS: RIVAROXABAN 15 MG TABLET PO SCH (08:17)
[2018-07-24] MEDS: LISINOPRIL 20 MG TAB PO SCH (08:17)
[2018-07-24] MEDS: FE SULF/FA/VIT B COMP & C TAB PO SCH (08:17)
[2018-07-24] MEDS: MAGNESIUM OXIDE 400 MG TAB PO SCH ×2 (08:17→19:36)
[2018-07-24] MEDS: BACLOFEN 10 MG TAB PO SCH ×2 (08:17→19:36)
[2018-07-24] MEDS: SOLIFENACIN SUCCIN 5 MG TAB PO SCH (08:17)
[2018-07-24] MEDS: PROMOD 30 ML DOSE PO SCH ×2 (08:18→19:38)
[2018-07-24] MEDS: GABAPENTIN 300 MG CAP PO SCH ×2 (08:18→19:36)
[2018-07-24] MEDS: TRAMADOL HCL 50 MG TAB PO PRN ×2 (11:10→19:42)
[2018-07-24] MEDS: ACETAMINOPHEN 500 MG TAB PO PRN (14:00)
--- NOTE | 2018-07-24 14:19 | FAST ---
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 Rambo De La Rosa M.D. ADMISSION DIAGNOSIS: - Orthopaedic Disorders 08 - Unilateral Hip Fracture (08.11) Left Hip Fracture. EATING: EATING - STEP 1: Does the patient require the assistance of a person or device, or need extra time when eating? Yes. EATING - STEP 2: Does the patient require the assistance of a helper? Yes. EATING - STEP 3: Does the patient perform half or more of the eating tasks? Yes. EATING - STEP 4: Does the patient need only supervision, cuing, coaxing OR help to apply an orthosis OR help to cut fo od, open containers, pour liquids, or butter bread? Yes. EATING - SCORE: 5-SUP GROOMING: Comb/brush hair Oral care Wash, rinse, and dry face Wash, rinse, and dry hands GROOMING - STEP 1: Does the patient require the assistance of a person or device, or need extra time when grooming? Yes. GROOMING - STEP 2: Does the patient require the assistance of a helper? No. The patient only requires an assistive devic e, OR takes more than reasonable time to groom, OR there is a concern for safety as the patient groom s GROOMING - SCORE: 6-SUSANA BATHING: Activity did not occur on this shift BATHING - SCORE: 0-UNK DRESSING - UPPER BODY: T-shirt/pullover shirt (four steps) ARTICLES SCORE Total number of steps: 4 DRESSING - UPPER BODY - STEP 1: Does the patient require help from a person or device, or need extra time when dressing above the [address] st? Yes. DRESSING - UPPER BODY - STEP 2: Does the patient require the assistance of a helper? No. Patient only requires an assistive device, s uch as a button hook, velcro, or group fitness manager. OR s/he takes more than reasonable time as s/he dresses the upper body. OR there is a concern for safety when s/he dresses the upper body DRESSING - UPPER BODY - SCORE: 6-SUSANA DRESSING - LOWER BODY: Activity did not occur on this shift ARTICLES SCORE Total number of steps: 0 DRESSING - LOWER BODY - SCORE: 0-UNK TOILETING: TOILETING - STEP 1: Does the patient require the assistance of a person or device, or need extra time with toileting? Yes . TOILETING - STEP 2: Does the patient require the assistance of a helper? Yes. TOILETING - STEP 3: How much assistance does the patient require from the helper? Hands-on assistance from the helper TOILETING - STEP 4: Of the 3 tasks: 1) Adjusting clothing prior to use, 2) Cleansing of perineal area, 3) Adjusting clot penny after use; How many tasks does the patient perform WITHOUT assistance of the helper? Two tasks TOILETING - SCORE: 3-MOD BLADDER MANAGEMENT: BLADDER MANAGEMENT - STEP 1: Does the patient control the bladder completely and intentionally without equipment or devices or med ications, and is always continent? No. BLADDER MANAGEMENT - STEP 2: Does the patient require the assistance of a helper? No, patient requires and independently uses an a ssistive device, such as a urinal, bedpan, bedside commode, catheter, absorbent pad, or collecting de vice BLADDER MANAGEMENT - SCORE: 6-SUSANA BLADDER MANAGEMENT - FREQUENCY OF ACCIDENTS: BLADDER MANAGEMENT(FA) - STEP 1: How many accidents has the patient had during the current shift? 2 BOWEL MANAGEMENT: BOWEL MANAGEMENT - STEP 1: Does the patient control bowels completely and intentionally without equipment devices or medications AND is always continent? No. BOWEL MANAGEMENT - STEP 2: Does the patient require the assistance of a helper? No, patient requires and manages independently a n assistive device such as a bedpan, bedside commode, absorbent pad, incontinent device, or collectin g device BOWEL MANAGEMENT - SCORE: 6-SUSANA TRANSFERS: BED, CHAIR, WHEELCHAIR: TRANSFERS: BED, CHAIR, WHEELCHAIR - STEP 1: Does the patient require assistance of a person or device, or need extra time with bed, chair, or whe elchair transfers? Yes. TRANSFERS: BED, CHAIR, WHEELCHAIR - STEP 2: Does the patient require the assistance of a helper? Yes. TRANSFERS: BED, CHAIR, WHEELCHAIR - STEP 3: How much assistance does the patient require from the helper? Steadying/guiding assistance TRANSFERS: BED, CHAIR, WHEELCHAIR - SCORE: 4-MIN TRANSFERS: TOILET: TRANSFERS: TOILET - STEP 1: Does the patient require the assistance of a person or device, or need extra time with toilet transfe rs? Yes. TRANSFERS: TOILET - STEP 2: Does the patient require the assistance of a helper? Yes. TRANSFERS: TOILET - STEP 3: How much assistance does the patient require from the helper? Only supervision, cuing, coaxing, OR he lp to set out transfer equipment or to lock brakes and/or lift foot rests TRANSFERS: TOILET - SCORE: 5-SUP TRANSFERS: SHOWER: Activity did not occur on this shift TRANSFERS: SHOWER - SCORE: 0-UNK TRANSFERS: TUB: Activity did not occur on this shift TRANSFERS: TUB - SCORE: 0-UNK LOCOMOTION: WALK: Activity did not occur on this shift LOCOMOTION: WALK - SCORE: 0-UNK LOCOMOTION: WHEELCHAIR: Activity did not occur on this shift LOCOMOTION: WHEELCHAIR - SCORE: 0-UNK COMPREHENSION: COMPREHENSION: TYPE: Both COMPREHENSION - STEP 1: Does the patient require help from a person or device, or need extra time to understand complex and a bstract ideas (such as current events, finances, discharge planning, medical issues, relationships, e tc)? No. COMPREHENSION - STEP 2: Does the patient need extra time, require an assistive device (such as glasses for visual comprehensi on or a hearing aid for auditory comprehension) or does s/he have mild difficulty understanding compl ex and abstract information? Yes. COMPREHENSION - SCORE: 6-SUSANA EXPRESSION EXPRESSION: TYPE: Both EXPRESSION - STEP 1: Does the patient require help from a person or device, or need extra time expressing complex and abst ract ideas (such as current events, finances, discharge planning, medical issues, relationships, etc) ? No. EXPRESSION - STEP 2: Does the patient need extra time, require an assistive device (such as augmentive communication syste m or a communication board), OR does s/he have mild difficulty expressing complex and abstract ideas (including mild dysarthria or mild word-find problems)? Yes. EXPRESSION - SCORE: 6-SUSANA SOCIAL INTERACTION: SOCIAL INTERACTION - STEP 1: Does the patient require a helper to interact with others in social and therapeutic situations? No. SOCIAL INTERACTION - STEP 2: Does the patient need extra time in social situations, OR does s/he interact with staff, other patien ts, and family members ONLY in structured environments, OR does s/he require medication for social in teraction? Yes, patient needs extra time SOCIAL INTERACTION - SCORE: 6-SUSANA PROBLEM SOLVING: PROBLEM SOLVING - STEP 1: Does the patient need help from a person or device, or need extra time to solve complex problems such as managing a checking account or confronting interpersonal problems? No. PROBLEM SOLVING - STEP 2: Does the patient require extra time to make decisions or solve problems, OR does s/he have slight dif ficulty reading, initiating, or self-correcting in unfamiliar situations? Yes, patient needs extra ti me. PROBLEM SOLVING - SCORE: 6-SUSANA MEMORY: MEMORY - STEP 1: Does the patient need help from a person or device, or need extra time to remember frequently encount ered people, daily routines, and executing requests? Yes. MEMORY - STEP 2: How often does the patient need help to remember frequently encountered people, daily routines, and e xecuting requests? Less than 10% of the time MEMORY - SCORE: 5-SUP SIGNATURE PANEL: The following modified sections: Eating - Score, Grooming - Score, Bathing - Score, Dressing - Upper Body - Score, Dressing - Lower Body - Score, Toileting - Score, Bladder Management - Score, Bowel Man agement - Score, Transfers: Bed, Chair, Wheelchair - Score, Transfers: Toilet - Score, Transfers: Rubi wer - Score, Transfers: Tub - Score, Locomotion: Walk - Score, Locomotion: Wheelchair - Score, Compre hension - Score, Expression - Score, Social Interaction - Score, Problem Solving - Score, Memory - Sc ore were [electronically] signed by Julio Marin on MonJul 24 2018 14:18:23 GMT-0500 (Central Daylight Time)
--- NOTE | 2018-07-24 15:41 | FAST ---
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 Rambo De La Rosa M.D. ADMISSION DIAGNOSIS: - Orthopaedic Disorders 08 - Unilateral Hip Fracture (08.11) Left Hip Fracture. EATING: Activity did not occur on this shift EATING - SCORE: 0-UNK GROOMING: Activity did not occur on this shift GROOMING - SCORE: 0-UNK BATHING: Activity did not occur on this shift BATHING - SCORE: 0-UNK DRESSING - UPPER BODY: Activity did not occur on this shift Patient is not dressing in public clothing ARTICLES SCORE Total number of steps: 0 DRESSING - UPPER BODY - SCORE: 0-UNK DRESSING - LOWER BODY: Activity did not occur on this shift Patient is not dressing in public clothing ARTICLES SCORE Total number of steps: 0 DRESSING - LOWER BODY - SCORE: 0-UNK TOILETING: Activity did not occur on this shift TOILETING - SCORE: 0-UNK BLADDER MANAGEMENT: Activity did not occur on this shift BLADDER MANAGEMENT - SCORE: 7-IND BOWEL MANAGEMENT: Activity did not occur on this shift BOWEL MANAGEMENT - SCORE: 7-IND TRANSFERS: BED, CHAIR, WHEELCHAIR: TRANSFERS: BED, CHAIR, WHEELCHAIR - STEP 1: Does the patient require assistance of a person or device, or need extra time with bed, chair, or whe elchair transfers? Yes. TRANSFERS: BED, CHAIR, WHEELCHAIR - STEP 2: Does the patient require the assistance of a helper? Yes. TRANSFERS: BED, CHAIR, WHEELCHAIR - STEP 3: How much assistance does the patient require from the helper? Only supervision TRANSFERS: BED, CHAIR, WHEELCHAIR - SCORE: 5-SUP TRANSFERS: TOILET: Activity did not occur on this shift TRANSFERS: TOILET - SCORE: 0-UNK TRANSFERS: SHOWER: Activity did not occur on this shift TRANSFERS: SHOWER - SCORE: 0-UNK TRANSFERS: TUB: Activity did not occur on this shift TRANSFERS: TUB - SCORE: 0-UNK LOCOMOTION: WALK: LOCOMOTION: WALK - STEP 1: Does the patient need help from a person or device, or need extra time to walk 150 feet? Yes. LOCOMOTION: WALK - STEP 2: How much assistance does the patient require to walk a minimum of 150 feet? Patient walks less than 1 50 feet - but more than 50 feet - with the assistance of only one helper LOCOMOTION: WALK - SCORE: 2-MAX LOCOMOTION: WHEELCHAIR: LOCOMOTION: WHEELCHAIR - STEP 1: Does the patient need help to go 150 feet in a wheelchair? No. LOCOMOTION: WHEELCHAIR - SCORE: 6-SUSANA LOCOMOTION: STAIRS: Patient goes up and down less than 4 to 6 stairs LOCOMOTION: STAIRS - SCORE: 1-DEP COMPREHENSION: COMPREHENSION - SCORE: 0-UNK EXPRESSION EXPRESSION - SCORE: 0-UNK SOCIAL INTERACTION: SOCIAL INTERACTION - SCORE: 0-UNK PROBLEM SOLVING: PROBLEM SOLVING - SCORE: 0-UNK MEMORY: MEMORY - SCORE: 0-UNK SIGNATURE PANEL: The following modified sections: Transfers: Bed, Chair, Wheelchair - Score, Transfers: Toilet - Score , Locomotion: Walk - Score, Locomotion: Wheelchair - Score, Locomotion: Stairs - Score were [electron gabo] signed by Jagjit Slaughter PT on MonJul 24 2018 15:40:55 T-0500 (Central Daylight Time)
--- NOTE | 2018-07-24 15:42 | FAST ---
ENCOUNTER DATE AND TIME: 07/23/2018 08:00 (CDT) NAME LINH SANDS DATE OF : 1935 DATE OF ADMISSION: 07/09/2018 17:51 ([facility]) PHONE: AGE: 83 SSN# [id number] GENDER: Female ENCOUNTER PHYSICIAN: Dr. Rambo De La Rosa M.D. ADMISSION DIAGNOSIS: - Orthopaedic Disorders 08 - Unilateral Hip Fracture (08.11) Left Hip Fracture. EATING: Activity did not occur on this shift EATING - SCORE: 0-UNK GROOMING: Activity did not occur on this shift GROOMING - SCORE: 0-UNK BATHING: Activity did not occur on this shift BATHING - SCORE: 0-UNK DRESSING - UPPER BODY: Activity did not occur on this shift Patient is not dressing in public clothing ARTICLES SCORE Total number of steps: 0 DRESSING - UPPER BODY - SCORE: 0-UNK DRESSING - LOWER BODY: Activity did not occur on this shift Patient is not dressing in public clothing ARTICLES SCORE Total number of steps: 0 DRESSING - LOWER BODY - SCORE: 0-UNK TOILETING: Activity did not occur on this shift TOILETING - SCORE: 0-UNK BLADDER MANAGEMENT: Activity did not occur on this shift BLADDER MANAGEMENT - SCORE: 7-IND BOWEL MANAGEMENT: Activity did not occur on this shift BOWEL MANAGEMENT - SCORE: 7-IND TRANSFERS: BED, CHAIR, WHEELCHAIR: TRANSFERS: BED, CHAIR, WHEELCHAIR - STEP 1: Does the patient require assistance of a person or device, or need extra time with bed, chair, or whe elchair transfers? Yes. TRANSFERS: BED, CHAIR, WHEELCHAIR - STEP 2: Does the patient require the assistance of a helper? Yes. TRANSFERS: BED, CHAIR, WHEELCHAIR - STEP 3: How much assistance does the patient require from the helper? Only supervision TRANSFERS: BED, CHAIR, WHEELCHAIR - SCORE: 5-SUP TRANSFERS: TOILET: Activity did not occur on this shift TRANSFERS: TOILET - SCORE: 0-UNK TRANSFERS: SHOWER: Activity did not occur on this shift TRANSFERS: SHOWER - SCORE: 0-UNK TRANSFERS: TUB: Activity did not occur on this shift TRANSFERS: TUB - SCORE: 0-UNK LOCOMOTION: WALK: LOCOMOTION: WALK - STEP 1: Does the patient need help from a person or device, or need extra time to walk 150 feet? Yes. LOCOMOTION: WALK - STEP 2: How much assistance does the patient require to walk a minimum of 150 feet? Patient walks less than 1 50 feet - but more than 50 feet - with the assistance of only one helper LOCOMOTION: WALK - SCORE: 2-MAX LOCOMOTION: WHEELCHAIR: LOCOMOTION: WHEELCHAIR - STEP 1: Does the patient need help to go 150 feet in a wheelchair? Yes. LOCOMOTION: WHEELCHAIR - STEP 2: How much assistance does the patient need from the helper? Only supervision, cuing, or coaxing LOCOMOTION: WHEELCHAIR - SCORE: 5-SUP LOCOMOTION: STAIRS: Activity did not occur on this shift LOCOMOTION: STAIRS - SCORE: 0-UNK COMPREHENSION: COMPREHENSION - SCORE: 0-UNK EXPRESSION EXPRESSION - SCORE: 0-UNK SOCIAL INTERACTION: SOCIAL INTERACTION - SCORE: 0-UNK PROBLEM SOLVING: PROBLEM SOLVING - SCORE: 0-UNK MEMORY: MEMORY - SCORE: 0-UNK SIGNATURE PANEL: The following modified sections: Transfers: Bed, Chair, Wheelchair - Score, Transfers: Toilet - Score , Locomotion: Walk - Score, Locomotion: Wheelchair - Score, Locomotion: Stairs - Score were [electron gabo] signed by Roberto Sumner PTA on MonJul 24 2018 15:40:58 GMT-0500 (Central Daylight Time)
--- NOTE | 2018-07-24 17:16 | R.PN ---
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 Pt denied any Shortness of Breath. Labs reviewed. Hgb 10.5, prealbumin 13.9. Ambulated 250' with standby assistance using a rolling walker. Self-propelled wheelchair 500' with mo dified independence. Up and down 3 steps with standby assistance. Using tylenol and tramadol for pain relief. VITAL SIGNS Temperature: 97.4 F SBP/DBP: 134/61 Pulse: 70 Resp: 16 MEDICATION ALLERGIES: Codeine ENVIRONMENTAL ALLERGIES: None Known - Substance Allergies None Known - Other Allergies None Known NURSING: - Shower allowing shower - Skin care per protocol PRECAUTIONS: - Posterior Hip Precaution No adduction across midline No external rotation No hip flexion >90 degrees No internal rotation No wheel chair propulsion - Weight Bearing Precaution WBAT left LE ACTIVITIES OOB only with supervision THERAPIES: - Occupational Therapy Evaluate and Treat. - Physical Therapy Evaluate and Treat. PHYSICAL EXAM - Gen Alert and awake Lying in bed No apparent distress Oriented to: person, time, and place - Skin No breakdown No abnormalities - Eyes No abnormalities - ENMT No abnormalities - Neck No abnormalities - CVS RRR - Chest No abnormalities - Resp Clear to auscultation - Abd +bowel sounds - GI Soft Deferred - No abnormalities - Ext Left hip surgical site has good hemostasis. - MSK 4+/5 weakness in left lower extremity - Neuro 4/5 strength left lower extremity. - Psych No abnormalities ASSESSMENT: Pt. is a 83 yo Right-handed white female.On 06/29/2018 she was admitted to [facility] with francesca gnosis Left Hip Fracture.Her impairment category is Orthopaedic Disorders 08 - Unilateral Hip Fractu re (08.).Pre-morbidly, Pt. was independent/mod-I in Self-Care, Sphincter Control, Transfers Control , Communication, Social Cognition, and Locomotion; and she had good Sphincter Control.Currently, she has deficits of Self-Care, Transfers Control, Endurance, Balance, Safety Awareness, and Locomotion.Pt . is now referred to [facility] for acute in-patient rehabilitation in order t o maximize patient's functional independence in activities of daily living, strength, ROM, and mobili ty.- Rehab Goal Patient has realistic goal of being discharged at assistance level 6-Radha to reside at Home with Fam wilmer/Relatives. MDM/PLAN: - Physical Therapy Decreased range of motion - to improve, our physical therapists will perform initial evaluation of p t's status upon admission and devise an individualized program for increasing patient's Range of Gianni on. Gait dysfunction - to improve, our physical therapists will perform initial evaluation of pt's statu s upon admission and devise an individualized program for Gait Training, and Wheel Chair mobility Inability to transfer - to improve, our physical therapists will perform initial evaluation of pt's status upon admission and devise an individualized program for Bed mobility Need for home safety evaluation - to improve, our physical therapists will perform initial evaluatio n of pt's status upon admission and devise an individualized program for Home Evaluation Need in caregiver upon discharge - to improve, our physical therapists will perform initial evaluati on of pt's status upon admission and devise an individualized program for Caregiver Training New precaution - to improve, our physical therapists will perform initial evaluation of pt's status upon admission and devise an individualized program for Patient precaution education Poor balance - to improve, our physical therapists will perform initial evaluation of pt's status up on admission and devise an individualized program for Balance Training Poor endurance - to improve, our physical therapists will perform initial evaluation of pt's status upon admission and devise an individualized program for Endurance Training Weakness - to improve, our physical therapists will perform initial evaluation of pt's status upon a dmission and devise an individualized program for Aquatic Therapy, Neuromuscular Reeducation, and Str engthening Achieving independence - to improve, our physical therapists will perform initial evaluation of pt's status upon admission and devise an individualized program for Community Reintegration Activities - Occupational Therapy ADL deficits - to improve, our occupation therapists will perform initial evaluation of pt's status upon admission and devise an individualized program for Bathing, Bed mobility, Community Reintegratio n, Cooking, Dressing, Eating, Fine Motor Skills, Grooming, Homemaking, Kitchen Mobility, Laundry, Pat ient Education, Safety Awareness, Splinting - Positioning, Transfers(Toilet, Tub, Shower), and Wheel Chair Management Need for chronic care nurse - to improve, our occupation therapists will perform initial evaluation of pt's status upon admission and devise an individualized program for Caregiver Training Weakness - to improve, our occupation therapists will perform initial evaluation of pt's status upon admission and devise an individualized program for Aquatic Therapy, Balance, Endurance, UE ROM, and UE strengthening - Anterior Hip Precaution No abduction No active extension No adduction across midline No external rotation No hip flexion >90 degrees No internal rotation - Diet - Liquid Texture Continue Regular - Tube Feed Continue N/A - Diet Type Continue Regular - Posterior Hip Precaution No adduction across midline No external rotation No hip flexion >90 degrees No internal rotation No wheel chair propulsion - Weight Bearing Precaution WBAT left LE - Skin care per protocol - Diet - Solid Texture Continue Regular - Shower allowing shower FUNCTIONAL STATUS: UPDATED AT WEEKLY TEAM CONFERENCE - Bladder Same accident frequency: 7-Ind - No accidents in the past 7 days - Bowel Same accident frequency: 7-Ind - No accidents in the past 7 days - Walking Same score based on distance walked: 3(>=150ft) FUNCTIONAL STATUS: - Self-Care A. Eating sup B. Grooming sup C. Bathing modA D. Dressing - Upper Maria Isabel E. Dressing - Lower maxA F. Toileting modA - Sphincter Control G: Bladder control Ind H: Bowel control Ind - Transfers Control I. Bed/Chair/Wheelchair Maria Isabel J. Toilet Maria Isabel K. Tub/Shower modA - Locomotion L. Walk/Wheelchair (B) Maria Isabel M. Stairs ADNO - Communication N. Comprehension (B) Radha O. Expression (B) Radha - Social Cognition P. Social Interaction Radha Q. Problem Solving Radha R. Memory Radha - Endurance Fair - Balance Fair - Safety Awareness Fair CURRENT FUNC. DEFICITS: Self-Care, Transfers Control, Endurance, Balance, Safety Awareness, and Locomotion SIGNATURE PANEL: (CDT)
[2018-07-24] MEDS: TRAZODONE 50 MG TABLET PO PRN (20:02)
[2018-07-24] MEDS: PRAMIPEXOLE 0.25 MG TAB PO SCH (20:02)
[2018-07-24] MEDS: DOCUSATE NA/SENNA CONC 1 TAB PO SCH (20:02)
[2018-07-25] MEDS: PANTOPRAZOLE 40MG TABLET PO SCH (06:35)
[2018-07-25] MEDS: LEVOTHYROXINE SOD 0.075 MG TAB PO SCH (06:36)
[2018-07-25] MEDS: NYSTATIN PWDR 100000 UNIT/GM TOP SCH ×2 (08:00→19:38)
[2018-07-25] MEDS: PROMOD 30 ML DOSE PO SCH ×2 (08:00→19:40)
[2018-07-25] MEDS: LIDOCAINE 5% PATCH TOP SCH (08:23)
[2018-07-25] MEDS: LISINOPRIL 20 MG TAB PO SCH (08:24)
[2018-07-25] MEDS: BACLOFEN 10 MG TAB PO SCH ×2 (08:24→19:40)
[2018-07-25] MEDS: FE SULF/FA/VIT B COMP & C TAB PO SCH (08:24)
[2018-07-25] MEDS: GABAPENTIN 300 MG CAP PO SCH ×2 (08:24→19:39)
[2018-07-25] MEDS: DULOXETINE 20 MG CAP PO SCH (08:25)
[2018-07-25] MEDS: hydroCHLOROthiazide 25 MG TAB PO SCH (08:25)
[2018-07-25] MEDS: MAGNESIUM OXIDE 400 MG TAB PO SCH ×2 (08:25→19:39)
[2018-07-25] MEDS: SOLIFENACIN SUCCIN 5 MG TAB PO SCH (08:25)
[2018-07-25] MEDS: CRANBERRY FRUIT EXTRACT 200 MG CAP PO SCH ×2 (08:25→19:39)
[2018-07-25] MEDS: TRAMADOL HCL 50 MG TAB PO PRN ×3 (08:26→19:44)
[2018-07-25] MEDS: RIVAROXABAN 15 MG TABLET PO SCH (08:26)
[2018-07-25] MEDS: FERROUS SULFATE 325 MG TAB PO SCH (08:26)
[2018-07-25] MEDS: VENLAFAXINE HCL XR 75 MG CAP PO SCH (08:26)
[2018-07-25] MEDS: AMLODIPINE 5 MG TAB PO SCH (08:33)
--- NOTE | 2018-07-25 14:52 | FAST ---
SHIFT START DATE/TIME: 07/25/2018 07:00 (CDT) SHIFT END DATE/TIME: 07/25/2018 19:00 (CDT) NAME LINH SANDS DATE OF : 1935 DATE OF ADMISSION: 07/09/2018 17:51 ([facility] [employer]) PHONE: AGE: 83 SSN# [id number] GENDER: Female ENCOUNTER PHYSICIAN: Dr. Rambo De La Rosa M.D. ADMISSION DIAGNOSIS: - Orthopaedic Disorders 08 - Unilateral Hip Fracture (08.11) Left Hip Fracture. EATING: EATING - STEP 1: Does the patient require the assistance of a person or device, or need extra time when eating? Yes. EATING - STEP 2: Does the patient require the assistance of a helper? No, patient only requires an assistive device, O R s/he takes more than reasonable time to eat, OR there is a safety concern, OR s/he requires modifie d food consistency EATING - SCORE: 6-SUSANA GROOMING: Comb/brush hair Oral care Wash, rinse, and dry face Wash, rinse, and dry hands GROOMING - STEP 1: Does the patient require the assistance of a person or device, or need extra time when grooming? Yes. GROOMING - STEP 2: Does the patient require the assistance of a helper? No. The patient only requires an assistive devic e, OR takes more than reasonable time to groom, OR there is a concern for safety as the patient groom s GROOMING - SCORE: 6-SUSANA BATHING: Activity did not occur on this shift BATHING - SCORE: 0-UNK DRESSING - UPPER BODY: T-shirt/pullover shirt (four steps) ARTICLES SCORE Total number of steps: 4 DRESSING - UPPER BODY - STEP 1: Does the patient require help from a person or device, or need extra time when dressing above the [address]? Yes. DRESSING - UPPER BODY - STEP 2: Does the patient require the assistance of a helper? Yes. DRESSING - UPPER BODY - STEP 3: Does the helper touch the patient while dressing? No. DRESSING - UPPER BODY - SCORE: 5-SUP DRESSING - LOWER BODY: Underwear (three steps) ARTICLES SCORE Total number of steps: 3 DRESSING - LOWER BODY - STEP 1: Does the patient require help from a person or device, or need extra time when dressing below the [address]? Yes. DRESSING - LOWER BODY - STEP 2: Does the patient require the assistance of a helper? Yes. DRESSING - LOWER BODY - STEP 3: Does the helper touch the patient while dressing? No. DRESSING - LOWER BODY - SCORE: 5-SUP TOILETING: TOILETING - STEP 1: Does the patient require the assistance of a person or device, or need extra time with toileting? Yes . TOILETING - STEP 2: Does the patient require the assistance of a helper? Yes. TOILETING - STEP 3: How much assistance does the patient require from the helper? Hands-on assistance from the helper TOILETING - STEP 4: Of the 3 tasks: 1) Adjusting clothing prior to use, 2) Cleansing of perineal area, 3) Adjusting clot penny after use; How many tasks does the patient perform WITHOUT assistance of the helper? Two tasks TOILETING - SCORE: 3-MOD BLADDER MANAGEMENT: [place] removes incontinent device (Depends, pull ups, etc.); cleans the patient after accident / inco ntinent episode; and, applies new incontinent device. BLADDER MANAGEMENT - SCORE: 1-DEP BLADDER MANAGEMENT - FREQUENCY OF ACCIDENTS: BLADDER MANAGEMENT(FA) - STEP 1: How many accidents has the patient had during the current shift? 2 BOWEL MANAGEMENT: Activity did not occur on this shift BOWEL MANAGEMENT - SCORE: 7-IND BOWEL MANAGEMENT - FREQUENCY OF ACCIDENTS: BOWEL MANAGEMENT(FA) - STEP 1: How many accidents has the patient had during the current shift? 0 TRANSFERS: BED, CHAIR, WHEELCHAIR: TRANSFERS: BED, CHAIR, WHEELCHAIR - STEP 1: Does the patient require assistance of a person or device, or need extra time with bed, chair, or whe elchair transfers? Yes. TRANSFERS: BED, CHAIR, WHEELCHAIR - STEP 2: Does the patient require the assistance of a helper? Yes. TRANSFERS: BED, CHAIR, WHEELCHAIR - STEP 3: How much assistance does the patient require from the helper? Lifting of the patient TRANSFERS: BED, CHAIR, WHEELCHAIR - STEP 4: Does the helper lift the patient ONLY up? ONLY down? Up AND Down? ONLY up. TRANSFERS: BED, CHAIR, WHEELCHAIR - SCORE: 3-MOD TRANSFERS: TOILET: TRANSFERS: TOILET - STEP 1: Does the patient require the assistance of a person or device, or need extra time with toilet transfe rs? Yes. TRANSFERS: TOILET - STEP 2: Does the patient require the assistance of a helper? Yes. TRANSFERS: TOILET - STEP 3: How much assistance does the patient require from the helper? Patient performs half or more of the tr ansferring tasks TRANSFERS: TOILET - STEP 4: Does the patient need only incidental help such as contact guard or steadying during toilet transfer? No. Patient needs more than incidental help TRANSFERS: TOILET - SCORE: 3-MOD TRANSFERS: SHOWER: Activity did not occur on this shift TRANSFERS: SHOWER - SCORE: 0-UNK TRANSFERS: TUB: Activity did not occur on this shift TRANSFERS: TUB - SCORE: 0-UNK LOCOMOTION: WALK: Activity did not occur on this shift LOCOMOTION: WALK - SCORE: 0-UNK LOCOMOTION: WHEELCHAIR: LOCOMOTION: WHEELCHAIR - STEP 1: Does the patient need help to go 150 feet in a wheelchair? Yes. LOCOMOTION: WHEELCHAIR - STEP 2: How much assistance does the patient need from the helper? Only supervision, cuing, or coaxing LOCOMOTION: WHEELCHAIR - SCORE: 5-SUP COMPREHENSION: COMPREHENSION: TYPE: Both COMPREHENSION - STEP 1: Does the patient require help from a person or device, or need extra time to understand complex and a bstract ideas (such as current events, finances, discharge planning, medical issues, relationships, e tc)? No. COMPREHENSION - STEP 2: Does the patient need extra time, require an assistive device (such as glasses for visual comprehensi on or a hearing aid for auditory comprehension) or does s/he have mild difficulty understanding compl ex and abstract information? Yes. COMPREHENSION - SCORE: 6-SUSAAN EXPRESSION EXPRESSION: TYPE: Both EXPRESSION - STEP 1: Does the patient require help from a person or device, or need extra time expressing complex and abst ract ideas (such as current events, finances, discharge planning, medical issues, relationships, etc) ? No. EXPRESSION - STEP 2: Does the patient need extra time, require an assistive device (such as augmentive communication syste m or a communication board), OR does s/he have mild difficulty expressing complex and abstract ideas (including mild dysarthria or mild word-find problems)? Yes. EXPRESSION - SCORE: 6-SUSANA SOCIAL INTERACTION: SOCIAL INTERACTION - STEP 1: Does the patient require a helper to interact with others in social and therapeutic situations? No. SOCIAL INTERACTION - STEP 2: Does the patient need extra time in social situations, OR does s/he interact with staff, other patien ts, and family members ONLY in structured environments, OR does s/he require medication for social in teraction? Yes, patient needs extra time SOCIAL INTERACTION - SCORE: 6-SUSANA PROBLEM SOLVING: PROBLEM SOLVING - STEP 1: Does the patient need help from a person or device, or need extra time to solve complex problems such as managing a checking account or confronting interpersonal problems? No. PROBLEM SOLVING - STEP 2: Does the patient require extra time to make decisions or solve problems, OR does s/he have slight dif ficulty reading, initiating, or self-correcting in unfamiliar situations? Yes, patient needs extra ti me. PROBLEM SOLVING - SCORE: 6-SUSANA MEMORY: MEMORY - STEP 1: Does the patient need help from a person or device, or need extra time to remember frequently encount ered people, daily routines, and executing requests? No. MEMORY - STEP 2: Does the patient have slight difficulty recognizing frequently encountered people, daily routines, or executing requests without the need for repetition or using self-initiated or environmental cues to remember? Yes. MEMORY - SCORE: 6-SUSANA SIGNATURE PANEL: The following modified sections: Eating - Score, Grooming - Score, Bathing - Score, Dressing - Upper Body - Score, Dressing - Lower Body - Score, Toileting - Score, Bladder Management - Score, Bowel Man agement - Score, Transfers: Bed, Chair, Wheelchair - Score, Transfers: Toilet - Score, Transfers: Rubi wer - Score, Transfers: Tub - Score, Locomotion: Walk - Score, Locomotion: Wheelchair - Score, Compre hension - Score, Expression - Score, Social Interaction - Score, Problem Solving - Score, Memory - Sc ore were [electronically] signed by Lillian Colby C.N.A. on MonJul 25 2018 14:50:11 T-0500 (Centra l Daylight Time)
--- NOTE | 2018-07-25 17:27 | FAST ---
ENCOUNTER DATE AND TIME: 07/25/2018 08:00 (CDT) NAME LINH SANDS DATE OF : 1935 DATE OF ADMISSION: 07/09/2018 17:51 ([facility]) PHONE: AGE: 83 SSN# [id number] GENDER: Female ENCOUNTER PHYSICIAN: Dr. Rambo De La Rosa M.D. ADMISSION DIAGNOSIS: - Orthopaedic Disorders 08 - Unilateral Hip Fracture (08.11) Left Hip Fracture. EATING: Activity did not occur on this shift EATING - SCORE: 0-UNK GROOMING: Activity did not occur on this shift GROOMING - SCORE: 0-UNK BATHING: Activity did not occur on this shift BATHING - SCORE: 0-UNK DRESSING - UPPER BODY: Activity did not occur on this shift Patient is not dressing in public clothing ARTICLES SCORE Total number of steps: 0 DRESSING - UPPER BODY - SCORE: 0-UNK DRESSING - LOWER BODY: Activity did not occur on this shift Patient is not dressing in public clothing ARTICLES SCORE Total number of steps: 0 DRESSING - LOWER BODY - SCORE: 0-UNK TOILETING: Activity did not occur on this shift TOILETING - SCORE: 0-UNK BLADDER MANAGEMENT: Activity did not occur on this shift BLADDER MANAGEMENT - SCORE: 7-IND BOWEL MANAGEMENT: Activity did not occur on this shift BOWEL MANAGEMENT - SCORE: 7-IND TRANSFERS: BED, CHAIR, WHEELCHAIR: TRANSFERS: BED, CHAIR, WHEELCHAIR - STEP 1: Does the patient require assistance of a person or device, or need extra time with bed, chair, or whe elchair transfers? Yes. TRANSFERS: BED, CHAIR, WHEELCHAIR - STEP 2: Does the patient require the assistance of a helper? Yes. TRANSFERS: BED, CHAIR, WHEELCHAIR - STEP 3: How much assistance does the patient require from the helper? Only supervision TRANSFERS: BED, CHAIR, WHEELCHAIR - SCORE: 5-SUP TRANSFERS: TOILET: Activity did not occur on this shift TRANSFERS: TOILET - SCORE: 0-UNK TRANSFERS: SHOWER: Activity did not occur on this shift TRANSFERS: SHOWER - SCORE: 0-UNK TRANSFERS: TUB: Activity did not occur on this shift TRANSFERS: TUB - SCORE: 0-UNK LOCOMOTION: WALK: LOCOMOTION: WALK - STEP 1: Does the patient need help from a person or device, or need extra time to walk 150 feet? Yes. LOCOMOTION: WALK - STEP 2: How much assistance does the patient require to walk a minimum of 150 feet? Only supervision, cuing, or coaxing LOCOMOTION: WALK - SCORE: 5-SUP LOCOMOTION: WHEELCHAIR: Activity did not occur on this shift LOCOMOTION: WHEELCHAIR - SCORE: 0-UNK LOCOMOTION: STAIRS: Activity did not occur on this shift LOCOMOTION: STAIRS - SCORE: 0-UNK COMPREHENSION: COMPREHENSION - SCORE: 0-UNK EXPRESSION EXPRESSION - SCORE: 0-UNK SOCIAL INTERACTION: SOCIAL INTERACTION - SCORE: 0-UNK PROBLEM SOLVING: PROBLEM SOLVING - SCORE: 0-UNK MEMORY: MEMORY - SCORE: 0-UNK SIGNATURE PANEL: The following modified sections: Transfers: Bed, Chair, Wheelchair - Score, Transfers: Toilet - Score , Locomotion: Walk - Score, Locomotion: Wheelchair - Score, Locomotion: Stairs - Score were [electron gabo] signed by Jagjit Slaughter PT on MonJul 25 2018 17:26:30 T-0500 (Central Daylight Time)
--- NOTE | 2018-07-25 17:45 | R.PN ---
ENCOUNTER DATE AND TIME: 07/25/2018 17:43 (CDT) NAME LINH SANDS DATE OF : 1935 DATE OF ADMISSION: 07/09/2018 17:51 (PIE BAKER) Left Hip FractureCHIEF COMPLAINT: Left hip fracture SUBJECTIVE: Pt denied any depression. Pt denied any Shortness of Breath. Labs reviewed. Hgb 10.5, prealbumin 13.9. Ambulated 435' with standby assistance using a rolling walker. Self-propelled wheelchair 500' with mo dified independence. Up and down 3 steps with standby assistance. Using tylenol and tramadol for pain relief. VITAL SIGNS Temperature: 97.4 F SBP/DBP: 140/65 Pulse: 69 Resp: 16 MEDICATION ALLERGIES: Codeine ENVIRONMENTAL ALLERGIES: None Known - Substance Allergies None Known - Other Allergies None Known NURSING: - Shower allowing shower - Skin care per protocol PRECAUTIONS: - Posterior Hip Precaution No adduction across midline No external rotation No hip flexion >90 degrees No internal rotation No wheel chair propulsion - Weight Bearing Precaution WBAT left LE ACTIVITIES OOB only with supervision THERAPIES: - Occupational Therapy Evaluate and Treat. - Physical Therapy Evaluate and Treat. PHYSICAL EXAM - Gen Alert and awake Lying in bed No apparent distress Oriented to: person, time, and place - Skin No breakdown No abnormalities - Eyes No abnormalities - ENMT No abnormalities - Neck No abnormalities - CVS RRR - Chest No abnormalities - Resp Clear to auscultation - Abd +bowel sounds - GI Soft Deferred - No abnormalities - Ext Left hip surgical site has good hemostasis. - MSK 4+/5 weakness in left lower extremity - Neuro 4/5 strength left lower extremity. - Psych No abnormalities ASSESSMENT: Pt. is a 83 yo Right-handed white female.On 06/29/2018 she was admitted to [facility] with francesca gnosis Left Hip Fracture.Her impairment category is Orthopaedic Disorders 08 - Unilateral Hip Fractu re (.).Pre-morbidly, Pt. was independent/mod-I in Self-Care, Sphincter Control, Transfers Control , Communication, Social Cognition, and Locomotion; and she had good Sphincter Control.Currently, she has deficits of Self-Care, Transfers Control, Endurance, Balance, Safety Awareness, and Locomotion.Pt . is now referred to [facility] for acute in-patient rehabilitation in order t o maximize patient's functional independence in activities of daily living, strength, ROM, and mobili ty.- Rehab Goal Patient has realistic goal of being discharged at assistance level 6-Radha to reside at Home with Fam wilmer/Relatives. MDM/PLAN: - Physical Therapy Decreased range of motion - to improve, our physical therapists will perform initial evaluation of p t's status upon admission and devise an individualized program for increasing patient's Range of Gianni on. Gait dysfunction - to improve, our physical therapists will perform initial evaluation of pt's statu s upon admission and devise an individualized program for Gait Training, and Wheel Chair mobility Inability to transfer - to improve, our physical therapists will perform initial evaluation of pt's status upon admission and devise an individualized program for Bed mobility Need for home safety evaluation - to improve, our physical therapists will perform initial evaluatio n of pt's status upon admission and devise an individualized program for Home Evaluation Need in caregiver upon discharge - to improve, our physical therapists will perform initial evaluati on of pt's status upon admission and devise an individualized program for Caregiver Training New precaution - to improve, our physical therapists will perform initial evaluation of pt's status upon admission and devise an individualized program for Patient precaution education Poor balance - to improve, our physical therapists will perform initial evaluation of pt's status up on admission and devise an individualized program for Balance Training Poor endurance - to improve, our physical therapists will perform initial evaluation of pt's status upon admission and devise an individualized program for Endurance Training Weakness - to improve, our physical therapists will perform initial evaluation of pt's status upon a dmission and devise an individualized program for Aquatic Therapy, Neuromuscular Reeducation, and Str engthening Achieving independence - to improve, our physical therapists will perform initial evaluation of pt's status upon admission and devise an individualized program for Community Reintegration Activities - Occupational Therapy ADL deficits - to improve, our occupation therapists will perform initial evaluation of pt's status upon admission and devise an individualized program for Bathing, Bed mobility, Community Reintegratio n, Cooking, Dressing, Eating, Fine Motor Skills, Grooming, Homemaking, Kitchen Mobility, Laundry, Pat ient Education, Safety Awareness, Splinting - Positioning, Transfers(Toilet, Tub, Shower), and Wheel Chair Management Need for veterinarian laboratory animal care - to improve, our occupation therapists will perform initial evaluation of pt's status upon admission and devise an individualized program for Caregiver Training Weakness - to improve, our occupation therapists will perform initial evaluation of pt's status upon admission and devise an individualized program for Aquatic Therapy, Balance, Endurance, UE ROM, and UE strengthening - Anterior Hip Precaution No abduction No active extension No adduction across midline No external rotation No hip flexion >90 degrees No internal rotation - Diet - Liquid Texture Continue Regular - Tube Feed Continue N/A - Diet Type Continue Regular - Posterior Hip Precaution No adduction across midline No external rotation No hip flexion >90 degrees No internal rotation No wheel chair propulsion - Weight Bearing Precaution WBAT left LE - Skin care per protocol - Diet - Solid Texture Continue Regular - Shower allowing shower FUNCTIONAL STATUS: UPDATED AT WEEKLY TEAM CONFERENCE - Bladder Same accident frequency: 7-Ind - No accidents in the past 7 days - Bowel Same accident frequency: 7-Ind - No accidents in the past 7 days - Walking Same score based on distance walked: 3(>=150ft) FUNCTIONAL STATUS: - Self-Care A. Eating sup B. Grooming sup C. Bathing modA D. Dressing - Upper Maria Isabel E. Dressing - Lower maxA F. Toileting modA - Sphincter Control G: Bladder control Ind H: Bowel control Ind - Transfers Control I. Bed/Chair/Wheelchair Maria Isabel J. Toilet Maria Isabel K. Tub/Shower modA - Locomotion L. Walk/Wheelchair (B) Maria Isabel M. Stairs ADNO - Communication N. Comprehension (B) Radha O. Expression (B) Radha - Social Cognition P. Social Interaction Radha Q. Problem Solving Radha R. Memory Radha - Endurance Fair - Balance Fair - Safety Awareness Fair CURRENT FUNC. DEFICITS: Self-Care, Transfers Control, Endurance, Balance, Safety Awareness, and Locomotion SIGNATURE PANEL: (CDT)
[2018-07-25] MEDS: TRAZODONE 50 MG TABLET PO PRN (20:35)
[2018-07-25] MEDS: PRAMIPEXOLE 0.25 MG TAB PO SCH (20:36)
[2018-07-25] MEDS: DOCUSATE NA/SENNA CONC 1 TAB PO SCH (20:36)
--- NOTE | 2018-07-26 01:39 | FAST ---
SHIFT START DATE/TIME: 07/25/2018 19:00 (CDT) SHIFT END DATE/TIME: 07/26/2018 07:00 (CDT) NAME LINH SANDS DATE OF : 1935 DATE OF ADMISSION: 07/09/2018 17:51 (ADMINISTRATIVE ASSOCIATE) PHONE: AGE: 83 SSN# [id number] GENDER: Female ENCOUNTER PHYSICIAN: Dr. Rambo De La Rosa M.D. ADMISSION DIAGNOSIS: - Orthopaedic Disorders 08 - Unilateral Hip Fracture (08.11) Left Hip Fracture. EATING: Activity did not occur on this shift EATING - SCORE: 0-UNK GROOMING: Oral care Wash, rinse, and dry hands GROOMING - STEP 1: Does the patient require the assistance of a person or device, or need extra time when grooming? Yes. GROOMING - STEP 2: Does the patient require the assistance of a helper? Yes. GROOMING - STEP 3: How much assistance does the patient require from the helper? Only prior equipment preparation/set up from the helper GROOMING - SCORE: 5-SUP BATHING: Activity did not occur on this shift BATHING - SCORE: 0-UNK DRESSING - UPPER BODY: Patient is not dressing in public clothing ARTICLES SCORE Total number of steps: 0 DRESSING - UPPER BODY - SCORE: 0-UNK DRESSING - LOWER BODY: Patient is not dressing in public clothing ARTICLES SCORE Total number of steps: 0 DRESSING - LOWER BODY - SCORE: 0-UNK TOILETING: TOILETING - STEP 1: Does the patient require the assistance of a person or device, or need extra time with toileting? Yes . TOILETING - STEP 2: Does the patient require the assistance of a helper? Yes. TOILETING - STEP 3: How much assistance does the patient require from the helper? Hands-on assistance from the helper TOILETING - STEP 4: Of the 3 tasks: 1) Adjusting clothing prior to use, 2) Cleansing of perineal area, 3) Adjusting clot penny after use; How many tasks does the patient perform WITHOUT assistance of the helper? No tasks; h elper performs all three tasks TOILETING - SCORE: 1-DEP BLADDER MANAGEMENT: [place] removes incontinent device (Depends, pull ups, etc.); cleans the patient after accident / inco ntinent episode; and, applies new incontinent device. BLADDER MANAGEMENT - SCORE: 1-DEP BOWEL MANAGEMENT: BOWEL MANAGEMENT - STEP 1: Does the patient control bowels completely and intentionally without equipment devices or medications AND is always continent? No. BOWEL MANAGEMENT - STEP 2: Does the patient require the assistance of a helper? No, patient requires medication for control such as stool softeners, suppositories, laxatives, enemas, or OTC medications BOWEL MANAGEMENT - SCORE: 6-SUSANA TRANSFERS: BED, CHAIR, WHEELCHAIR: TRANSFERS: BED, CHAIR, WHEELCHAIR - STEP 1: Does the patient require assistance of a person or device, or need extra time with bed, chair, or whe elchair transfers? Yes. TRANSFERS: BED, CHAIR, WHEELCHAIR - STEP 2: Does the patient require the assistance of a helper? Yes. TRANSFERS: BED, CHAIR, WHEELCHAIR - STEP 3: How much assistance does the patient require from the helper? Lifting of the legs TRANSFERS: BED, CHAIR, WHEELCHAIR - STEP 4: How many legs does the patient require the helper to lift? both legs TRANSFERS: BED, CHAIR, WHEELCHAIR - SCORE: 3-MOD TRANSFERS: TOILET: TRANSFERS: TOILET - STEP 1: Does the patient require the assistance of a person or device, or need extra time with toilet transfe rs? Yes. TRANSFERS: TOILET - STEP 2: Does the patient require the assistance of a helper? Yes. TRANSFERS: TOILET - STEP 3: How much assistance does the patient require from the helper? Patient performs half or more of the tr ansferring tasks TRANSFERS: TOILET - STEP 4: Does the patient need only incidental help such as contact guard or steadying during toilet transfer? No. Patient needs more than incidental help TRANSFERS: TOILET - SCORE: 3-MOD TRANSFERS: SHOWER: Activity did not occur on this shift TRANSFERS: SHOWER - SCORE: 0-UNK TRANSFERS: TUB: Activity did not occur on this shift TRANSFERS: TUB - SCORE: 0-UNK LOCOMOTION: WALK: Activity did not occur on this shift LOCOMOTION: WALK - SCORE: 0-UNK LOCOMOTION: WHEELCHAIR: Activity did not occur on this shift LOCOMOTION: WHEELCHAIR - SCORE: 0-UNK COMPREHENSION: COMPREHENSION: TYPE: Both COMPREHENSION - STEP 1: Does the patient require help from a person or device, or need extra time to understand complex and a bstract ideas (such as current events, finances, discharge planning, medical issues, relationships, e tc)? Yes. COMPREHENSION - STEP 2: Does the patient require help to understand questions or statements about basic needs or ideas (such as hunger, thirst, sleep, safety, daily schedule, room location, or discomfort) half or more of the t meche? No. COMPREHENSION - STEP 3: How often does the patient need help to understand directions and conversation about basic needs? 10% - 24% of the time COMPREHENSION - SCORE: 4-MIN EXPRESSION EXPRESSION: TYPE: Both EXPRESSION - STEP 1: Does the patient require help from a person or device, or need extra time expressing complex and abst ract ideas (such as current events, finances, discharge planning, medical issues, relationships, etc) ? No. EXPRESSION - STEP 2: Does the patient need extra time, require an assistive device (such as augmentive communication syste m or a communication board), OR does s/he have mild difficulty expressing complex and abstract ideas (including mild dysarthria or mild word-find problems)? Yes. EXPRESSION - SCORE: 6-SUSANA SOCIAL INTERACTION: SOCIAL INTERACTION - STEP 1: Does the patient require a helper to interact with others in social and therapeutic situations? No. SOCIAL INTERACTION - STEP 2: Does the patient need extra time in social situations, OR does s/he interact with staff, other patien ts, and family members ONLY in structured environments, OR does s/he require medication for social in teraction? Yes, patient requires medication for social interaction SOCIAL INTERACTION - SCORE: 6-SUSANA PROBLEM SOLVING: PROBLEM SOLVING - STEP 1: Does the patient need help from a person or device, or need extra time to solve complex problems such as managing a checking account or confronting interpersonal problems? Yes. PROBLEM SOLVING - STEP 2: Does the patient solve basic routine problems half or more of the time? Yes. PROBLEM SOLVING - STEP 3: How often does the patient need help to solve basic routine problems? 10%-24% of the time PROBLEM SOLVING - SCORE: 4-MIN MEMORY: MEMORY - STEP 1: Does the patient need help from a person or device, or need extra time to remember frequently encount ered people, daily routines, and executing requests? No. MEMORY - STEP 2: Does the patient have slight difficulty recognizing frequently encountered people, daily routines, or executing requests without the need for repetition or using self-initiated or environmental cues to remember? Yes. MEMORY - SCORE: 6-SUSANA SIGNATURE PANEL: The following modified sections: Eating - Score, Grooming - Score, Dressing - Upper Body - Score, Kenny ssing - Lower Body - Score, Toileting - Score, Bladder Management - Score, Bowel Management - Score, Transfers: Bed, Chair, Wheelchair - Score, Transfers: Toilet - Score, Transfers: Shower - Score, Bello sfers: Tub - Score, Locomotion: Walk - Score, Locomotion: Wheelchair - Score, Comprehension - Score, Expression - Score, Social Interaction - Score, Problem Solving - Score, Memory - Score were [electro nically] signed by Viri Pretty CNA on MonJul 26 2018 01:38:56 GMT-0500 (Central Daylight Time)
[2018-07-26] MEDS: ACETAMINOPHEN 500 MG TAB PO PRN ×2 (04:07→18:21)
[2018-07-26 06:12] LABS: Absolute Lymphocytes (CBC) 2.2 K/uL (0.7-4.9); Absolute Monocytes 0.5 K/uL (0.1-1.3); Absolute Neutrophil 3.8 K/uL (1.8-8.0); Basophils % 0.8 % (0-1.3); Eosinophils % 1.5 % (0-4.4); Hematocrit 35.8 % (36.0-45.0); Lymphocytes % 32.4 % (15.3-44.8); MPV 7.8 fL (7.6-11.3); Monocytes % 7.9 % (3.3-12.3); RBC Red Blood Cell Count 3.58 M/uL (3.86-4.86)
[2018-07-26 06:22] LABS: Albumin 2.8 g/dL (3.4-5.0); Potassium 3.6 mmol/L (3.5-5.1); Prealbumin 17.4 mg/dL (20-40)
[2018-07-26] MEDS: LEVOTHYROXINE SOD 0.075 MG TAB PO SCH (06:52)
[2018-07-26] MEDS: PANTOPRAZOLE 40MG TABLET PO SCH (06:52)
[2018-07-26] MEDS: PROMOD 30 ML DOSE PO SCH ×2 (08:00→19:36)
[2018-07-26] MEDS: NYSTATIN PWDR 100000 UNIT/GM TOP SCH ×2 (08:25→19:36)
[2018-07-26] MEDS: MAGNESIUM OXIDE 400 MG TAB PO SCH ×2 (08:26→19:35)
[2018-07-26] MEDS: CRANBERRY FRUIT EXTRACT 200 MG CAP PO SCH ×2 (08:26→19:35)
[2018-07-26] MEDS: LIDOCAINE 5% PATCH TOP SCH (08:26)
[2018-07-26] MEDS: hydroCHLOROthiazide 25 MG TAB PO SCH (08:26)
[2018-07-26] MEDS: BACLOFEN 10 MG TAB PO SCH ×2 (08:26→19:36)
[2018-07-26] MEDS: DULOXETINE 20 MG CAP PO SCH (08:26)
[2018-07-26] MEDS: LISINOPRIL 20 MG TAB PO SCH (08:27)
[2018-07-26] MEDS: SOLIFENACIN SUCCIN 5 MG TAB PO SCH (08:27)
[2018-07-26] MEDS: TRAMADOL HCL 50 MG TAB PO PRN ×3 (08:27→20:44)
[2018-07-26] MEDS: FE SULF/FA/VIT B COMP & C TAB PO SCH (08:27)
[2018-07-26] MEDS: GABAPENTIN 300 MG CAP PO SCH ×2 (08:28→19:35)
[2018-07-26] MEDS: VENLAFAXINE HCL XR 75 MG CAP PO SCH (08:28)
[2018-07-26] MEDS: AMLODIPINE 5 MG TAB PO SCH (08:28)
[2018-07-26] MEDS: FERROUS SULFATE 325 MG TAB PO SCH (08:28)
[2018-07-26] MEDS: RIVAROXABAN 15 MG TABLET PO SCH (08:28)
--- NOTE | 2018-07-26 14:36 | FAST ---
SHIFT START DATE/TIME: 07/26/2018 07:00 (CDT) SHIFT END DATE/TIME: 07/26/2018 19:00 (CDT) NAME LINH SANDS DATE OF : 1935 DATE OF ADMISSION: 07/09/2018 17:51 (VARNISH MIXER) PHONE: AGE: 83 SSN# [id number] GENDER: Female ENCOUNTER PHYSICIAN: Dr. Rambo De La Rosa M.D. ADMISSION DIAGNOSIS: - Orthopaedic Disorders 08 - Unilateral Hip Fracture (08.11) Left Hip Fracture. EATING: EATING - STEP 1: Does the patient require the assistance of a person or device, or need extra time when eating? Yes. EATING - STEP 2: Does the patient require the assistance of a helper? No, patient only requires an assistive device, O R s/he takes more than reasonable time to eat, OR there is a safety concern, OR s/he requires modifie d food consistency EATING - SCORE: 6-SUSANA GROOMING: GROOMING - STEP 1: Does the patient require the assistance of a person or device, or need extra time when grooming? Yes. GROOMING - STEP 2: Does the patient require the assistance of a helper? No. The patient only requires an assistive devic e, OR takes more than reasonable time to groom, OR there is a concern for safety as the patient groom s GROOMING - SCORE: 6-SUSANA BATHING: Activity did not occur on this shift BATHING - SCORE: 0-UNK DRESSING - UPPER BODY: T-shirt/pullover shirt (four steps) ARTICLES SCORE Total number of steps: 4 DRESSING - UPPER BODY - STEP 1: Does the patient require help from a person or device, or need extra time when dressing above the [address] st? Yes. DRESSING - UPPER BODY - STEP 2: Does the patient require the assistance of a helper? Yes. DRESSING - UPPER BODY - STEP 3: Does the helper touch the patient while dressing? No. DRESSING - UPPER BODY - SCORE: 5-SUP DRESSING - LOWER BODY: Slip-on shoe - Left foot (one step) Slip-on shoe - Right foot (one step) Underwear (three steps) ARTICLES SCORE Total number of steps: 5 DRESSING - LOWER BODY - STEP 1: Does the patient require help from a person or device, or need extra time when dressing below the [address] st? Yes. DRESSING - LOWER BODY - STEP 2: Does the patient require the assistance of a helper? Yes. DRESSING - LOWER BODY - STEP 3: Does the helper touch the patient while dressing? No. DRESSING - LOWER BODY - SCORE: 5-SUP TOILETING: TOILETING - STEP 1: Does the patient require the assistance of a person or device, or need extra time with toileting? Yes . TOILETING - STEP 2: Does the patient require the assistance of a helper? Yes. TOILETING - STEP 3: How much assistance does the patient require from the helper? Hands-on assistance from the helper TOILETING - STEP 4: Of the 3 tasks: 1) Adjusting clothing prior to use, 2) Cleansing of perineal area, 3) Adjusting clot penny after use; How many tasks does the patient perform WITHOUT assistance of the helper? Two tasks TOILETING - SCORE: 3-MOD BLADDER MANAGEMENT: [place] removes incontinent device (Depends, pull ups, etc.); cleans the patient after accident / inco ntinent episode; and, applies new incontinent device. BLADDER MANAGEMENT - SCORE: 1-DEP BLADDER MANAGEMENT - FREQUENCY OF ACCIDENTS: BLADDER MANAGEMENT(FA) - STEP 1: How many accidents has the patient had during the current shift? 1 BOWEL MANAGEMENT: Activity did not occur on this shift BOWEL MANAGEMENT - SCORE: 7-IND BOWEL MANAGEMENT - FREQUENCY OF ACCIDENTS: BOWEL MANAGEMENT(FA) - STEP 1: How many accidents has the patient had during the current shift? 0 TRANSFERS: BED, CHAIR, WHEELCHAIR: TRANSFERS: BED, CHAIR, WHEELCHAIR - STEP 1: Does the patient require assistance of a person or device, or need extra time with bed, chair, or whe elchair transfers? Yes. TRANSFERS: BED, CHAIR, WHEELCHAIR - STEP 2: Does the patient require the assistance of a helper? Yes. TRANSFERS: BED, CHAIR, WHEELCHAIR - STEP 3: How much assistance does the patient require from the helper? Lifting of the legs TRANSFERS: BED, CHAIR, WHEELCHAIR - STEP 4: How many legs does the patient require the helper to lift? one leg TRANSFERS: BED, CHAIR, WHEELCHAIR - SCORE: 4-MIN TRANSFERS: TOILET: TRANSFERS: TOILET - STEP 1: Does the patient require the assistance of a person or device, or need extra time with toilet transfe rs? Yes. TRANSFERS: TOILET - STEP 2: Does the patient require the assistance of a helper? Yes. TRANSFERS: TOILET - STEP 3: How much assistance does the patient require from the helper? Patient performs half or more of the tr ansferring tasks TRANSFERS: TOILET - STEP 4: Does the patient need only incidental help such as contact guard or steadying during toilet transfer? No. Patient needs more than incidental help TRANSFERS: TOILET - SCORE: 3-MOD TRANSFERS: SHOWER: Activity did not occur on this shift TRANSFERS: SHOWER - SCORE: 0-UNK TRANSFERS: TUB: Activity did not occur on this shift TRANSFERS: TUB - SCORE: 0-UNK LOCOMOTION: WALK: Activity did not occur on this shift LOCOMOTION: WALK - SCORE: 0-UNK LOCOMOTION: WHEELCHAIR: Activity did not occur on this shift LOCOMOTION: WHEELCHAIR - SCORE: 0-UNK COMPREHENSION: COMPREHENSION: TYPE: Both COMPREHENSION - STEP 1: Does the patient require help from a person or device, or need extra time to understand complex and a bstract ideas (such as current events, finances, discharge planning, medical issues, relationships, e tc)? No. COMPREHENSION - STEP 2: Does the patient need extra time, require an assistive device (such as glasses for visual comprehensi on or a hearing aid for auditory comprehension) or does s/he have mild difficulty understanding compl ex and abstract information? Yes. COMPREHENSION - SCORE: 6-SUSANA EXPRESSION EXPRESSION: TYPE: Both EXPRESSION - STEP 1: Does the patient require help from a person or device, or need extra time expressing complex and abst ract ideas (such as current events, finances, discharge planning, medical issues, relationships, etc) ? No. EXPRESSION - STEP 2: Does the patient need extra time, require an assistive device (such as augmentive communication syste m or a communication board), OR does s/he have mild difficulty expressing complex and abstract ideas (including mild dysarthria or mild word-find problems)? Yes. EXPRESSION - SCORE: 6-SUSANA SOCIAL INTERACTION: SOCIAL INTERACTION - STEP 1: Does the patient require a helper to interact with others in social and therapeutic situations? No. SOCIAL INTERACTION - STEP 2: Does the patient need extra time in social situations, OR does s/he interact with staff, other patien ts, and family members ONLY in structured environments, OR does s/he require medication for social in teraction? Yes, patient needs extra time SOCIAL INTERACTION - SCORE: 6-SUSANA PROBLEM SOLVING: PROBLEM SOLVING - STEP 1: Does the patient need help from a person or device, or need extra time to solve complex problems such as managing a checking account or confronting interpersonal problems? No. PROBLEM SOLVING - STEP 2: Does the patient require extra time to make decisions or solve problems, OR does s/he have slight dif ficulty reading, initiating, or self-correcting in unfamiliar situations? Yes, patient needs extra ti me. PROBLEM SOLVING - SCORE: 6-SUSANA MEMORY: MEMORY - STEP 1: Does the patient need help from a person or device, or need extra time to remember frequently encount ered people, daily routines, and executing requests? No. MEMORY - STEP 2: Does the patient have slight difficulty recognizing frequently encountered people, daily routines, or executing requests without the need for repetition or using self-initiated or environmental cues to remember? Yes. MEMORY - SCORE: 6-SUSANA SIGNATURE PANEL: The following modified sections: Eating - Score, Grooming - Score, Bathing - Score, Dressing - Upper Body - Score, Dressing - Lower Body - Score, Toileting - Score, Bladder Management - Score, Bowel Man agement - Score, Transfers: Bed, Chair, Wheelchair - Score, Transfers: Toilet - Score, Transfers: Rubi wer - Score, Transfers: Tub - Score, Locomotion: Walk - Score, Locomotion: Wheelchair - Score, Compre hension - Score, Expression - Score, Social Interaction - Score, Problem Solving - Score, Memory - Sc ore were [electronically] signed by Fina RussellNRoberto Carlos on MonJul 26 2018 14:35:39 T-0500 (Centra l Daylight Time)
--- NOTE | 2018-07-26 18:23 | R.PN ---
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 Pt denied any Shortness of Breath. Labs reviewed. Hgb 11.7, prealbumin 17.4, [id number]. Ambulated 320' with standby assistance using a rolling walker. Self-propelled wheelchair 200' with mo dified independence. Up and down 3 steps with standby assistance. Using tylenol and tramadol for pain relief. VITAL SIGNS Temperature: 97.4 F SBP/DBP: 140/62 Pulse: 70 Resp: 16 MEDICATION ALLERGIES: Codeine ENVIRONMENTAL ALLERGIES: None Known - Substance Allergies None Known - Other Allergies None Known NURSING: - Shower allowing shower - Skin care per protocol PRECAUTIONS: - Posterior Hip Precaution No adduction across midline No external rotation No hip flexion >90 degrees No internal rotation No wheel chair propulsion - Weight Bearing Precaution WBAT left LE ACTIVITIES OOB only with supervision THERAPIES: - Occupational Therapy Evaluate and Treat. - Physical Therapy Evaluate and Treat. PHYSICAL EXAM - Gen Alert and awake Lying in bed No apparent distress Oriented to: person, time, and place - Skin No breakdown No abnormalities - Eyes No abnormalities - ENMT No abnormalities - Neck No abnormalities - CVS RRR - Chest No abnormalities - Resp Clear to auscultation - Abd +bowel sounds - GI Soft Deferred - No abnormalities - Ext Left hip surgical site has good hemostasis. - MSK 4+/5 weakness in left lower extremity - Neuro 4/5 strength left lower extremity. - Psych No abnormalities ASSESSMENT: Pt. is a 83 yo Right-handed white female.On 06/29/2018 she was admitted to [facility] with francesca gnosis Left Hip Fracture.Her impairment category is Orthopaedic Disorders 08 - Unilateral Hip Fractu re (.11).Pre-morbidly, Pt. was independent/mod-I in Self-Care, Sphincter Control, Transfers Control , Communication, Social Cognition, and Locomotion; and she had good Sphincter Control.Currently, she has deficits of Self-Care, Transfers Control, Endurance, Balance, Safety Awareness, and Locomotion.Pt . is now referred to [facility] for acute in-patient rehabilitation in order t o maximize patient's functional independence in activities of daily living, strength, ROM, and mobili ty.- Rehab Goal Patient has realistic goal of being discharged at assistance level 6-Radha to reside at Home with Fam wilmer/Relatives. MDM/PLAN: - Physical Therapy Decreased range of motion - to improve, our physical therapists will perform initial evaluation of p t's status upon admission and devise an individualized program for increasing patient's Range of Gianni on. Gait dysfunction - to improve, our physical therapists will perform initial evaluation of pt's statu s upon admission and devise an individualized program for Gait Training, and Wheel Chair mobility Inability to transfer - to improve, our physical therapists will perform initial evaluation of pt's status upon admission and devise an individualized program for Bed mobility Need for home safety evaluation - to improve, our physical therapists will perform initial evaluatio n of pt's status upon admission and devise an individualized program for Home Evaluation Need in caregiver upon discharge - to improve, our physical therapists will perform initial evaluati on of pt's status upon admission and devise an individualized program for Caregiver Training New precaution - to improve, our physical therapists will perform initial evaluation of pt's status upon admission and devise an individualized program for Patient precaution education Poor balance - to improve, our physical therapists will perform initial evaluation of pt's status up on admission and devise an individualized program for Balance Training Poor endurance - to improve, our physical therapists will perform initial evaluation of pt's status upon admission and devise an individualized program for Endurance Training Weakness - to improve, our physical therapists will perform initial evaluation of pt's status upon a dmission and devise an individualized program for Aquatic Therapy, Neuromuscular Reeducation, and Str engthening Achieving independence - to improve, our physical therapists will perform initial evaluation of pt's status upon admission and devise an individualized program for Community Reintegration Activities - Occupational Therapy ADL deficits - to improve, our occupation therapists will perform initial evaluation of pt's status upon admission and devise an individualized program for Bathing, Bed mobility, Community Reintegratio n, Cooking, Dressing, Eating, Fine Motor Skills, Grooming, Homemaking, Kitchen Mobility, Laundry, Pat ient Education, Safety Awareness, Splinting - Positioning, Transfers(Toilet, Tub, Shower), and Wheel Chair Management Need for healthcare risk control consultant - to improve, our occupation therapists will perform initial evaluation of pt's status upon admission and devise an individualized program for Caregiver Training Weakness - to improve, our occupation therapists will perform initial evaluation of pt's status upon admission and devise an individualized program for Aquatic Therapy, Balance, Endurance, UE ROM, and UE strengthening - Anterior Hip Precaution No abduction No active extension No adduction across midline No external rotation No hip flexion >90 degrees No internal rotation - Diet - Liquid Texture Continue Regular - Tube Feed Continue N/A - Diet Type Continue Regular - Posterior Hip Precaution No adduction across midline No external rotation No hip flexion >90 degrees No internal rotation No wheel chair propulsion - Weight Bearing Precaution WBAT left LE - Skin care per protocol - Diet - Solid Texture Continue Regular - Shower allowing shower FUNCTIONAL STATUS: UPDATED AT WEEKLY TEAM CONFERENCE - Bladder Same accident frequency: 7-Ind - No accidents in the past 7 days - Bowel Same accident frequency: 7-Ind - No accidents in the past 7 days - Walking Same score based on distance walked: 3(>=150ft) FUNCTIONAL STATUS: - Self-Care A. Eating sup B. Grooming sup C. Bathing modA D. Dressing - Upper Maria Isabel E. Dressing - Lower maxA F. Toileting modA - Sphincter Control G: Bladder control Ind H: Bowel control Ind - Transfers Control I. Bed/Chair/Wheelchair Maria Isabel J. Toilet Maria Isabel K. Tub/Shower modA - Locomotion L. Walk/Wheelchair (B) Maria Isabel M. Stairs ADNO - Communication N. Comprehension (B) Radha O. Expression (B) Radha - Social Cognition P. Social Interaction Radha Q. Problem Solving Radha R. Memory Radha - Endurance Fair - Balance Fair - Safety Awareness Fair CURRENT FUNC. DEFICITS: Self-Care, Transfers Control, Endurance, Balance, Safety Awareness, and Locomotion SIGNATURE PANEL: (CDT)
[2018-07-26] MEDS: DOCUSATE NA/SENNA CONC 1 TAB PO SCH (20:43)
[2018-07-26] MEDS: MELATONIN 3 MG TABLET PO PRN (20:44)
[2018-07-26] MEDS: PRAMIPEXOLE 0.25 MG TAB PO SCH (20:44)
--- NOTE | 2018-07-27 02:10 | FAST ---
SHIFT START DATE/TIME: 07/26/2018 19:00 (CDT) SHIFT END DATE/TIME: 07/27/2018 07:00 (CDT) NAME LINH SANDS DATE OF : 1935 DATE OF ADMISSION: 07/09/2018 17:51 (CLAIMS ASSISTANT) PHONE: AGE: 83 SSN# [id number] GENDER: Female ENCOUNTER PHYSICIAN: Dr. Rambo DeL a Rosa M.D. ADMISSION DIAGNOSIS: - Orthopaedic Disorders 08 - Unilateral Hip Fracture (08.11) Left Hip Fracture. EATING: Activity did not occur on this shift EATING - SCORE: 0-UNK GROOMING: Oral care Wash, rinse, and dry hands GROOMING - STEP 1: Does the patient require the assistance of a person or device, or need extra time when grooming? Yes. GROOMING - STEP 2: Does the patient require the assistance of a helper? Yes. GROOMING - STEP 3: How much assistance does the patient require from the helper? Only prior equipment preparation/set up from the helper GROOMING - SCORE: 5-SUP BATHING: Activity did not occur on this shift BATHING - SCORE: 0-UNK DRESSING - UPPER BODY: Patient is not dressing in public clothing ARTICLES SCORE Total number of steps: 0 DRESSING - UPPER BODY - SCORE: 0-UNK DRESSING - LOWER BODY: Patient is not dressing in public clothing ARTICLES SCORE Total number of steps: 0 DRESSING - LOWER BODY - SCORE: 0-UNK TOILETING: TOILETING - STEP 1: Does the patient require the assistance of a person or device, or need extra time with toileting? Yes . TOILETING - STEP 2: Does the patient require the assistance of a helper? Yes. TOILETING - STEP 3: How much assistance does the patient require from the helper? Hands-on assistance from the helper TOILETING - STEP 4: Of the 3 tasks: 1) Adjusting clothing prior to use, 2) Cleansing of perineal area, 3) Adjusting clot penny after use; How many tasks does the patient perform WITHOUT assistance of the helper? One task TOILETING - SCORE: 2-MAX BLADDER MANAGEMENT: Sabula removes incontinent device (Depends, pull ups, etc.); cleans the patient after accident / inco ntinent episode; and, applies new incontinent device. BLADDER MANAGEMENT - SCORE: 1-DEP BOWEL MANAGEMENT: BOWEL MANAGEMENT - STEP 1: Does the patient control bowels completely and intentionally without equipment devices or medications AND is always continent? No. BOWEL MANAGEMENT - STEP 2: Does the patient require the assistance of a helper? No, patient requires medication for control such as stool softeners, suppositories, laxatives, enemas, or OTC medications BOWEL MANAGEMENT - SCORE: 6-SUSANA TRANSFERS: BED, CHAIR, WHEELCHAIR: TRANSFERS: BED, CHAIR, WHEELCHAIR - STEP 1: Does the patient require assistance of a person or device, or need extra time with bed, chair, or whe elchair transfers? Yes. TRANSFERS: BED, CHAIR, WHEELCHAIR - STEP 2: Does the patient require the assistance of a helper? Yes. TRANSFERS: BED, CHAIR, WHEELCHAIR - STEP 3: How much assistance does the patient require from the helper? Lifting of the legs TRANSFERS: BED, CHAIR, WHEELCHAIR - STEP 4: How many legs does the patient require the helper to lift? both legs TRANSFERS: BED, CHAIR, WHEELCHAIR - SCORE: 3-MOD TRANSFERS: TOILET: TRANSFERS: TOILET - STEP 1: Does the patient require the assistance of a person or device, or need extra time with toilet transfe rs? Yes. TRANSFERS: TOILET - STEP 2: Does the patient require the assistance of a helper? Yes. TRANSFERS: TOILET - STEP 3: How much assistance does the patient require from the helper? Patient performs half or more of the tr ansferring tasks TRANSFERS: TOILET - STEP 4: Does the patient need only incidental help such as contact guard or steadying during toilet transfer? Yes. TRANSFERS: TOILET - SCORE: 4-MIN TRANSFERS: SHOWER: Activity did not occur on this shift TRANSFERS: SHOWER - SCORE: 0-UNK TRANSFERS: TUB: Activity did not occur on this shift TRANSFERS: TUB - SCORE: 0-UNK LOCOMOTION: WALK: Activity did not occur on this shift LOCOMOTION: WALK - SCORE: 0-UNK LOCOMOTION: WHEELCHAIR: Activity did not occur on this shift LOCOMOTION: WHEELCHAIR - SCORE: 0-UNK COMPREHENSION: COMPREHENSION: TYPE: Both COMPREHENSION - STEP 1: Does the patient require help from a person or device, or need extra time to understand complex and a bstract ideas (such as current events, finances, discharge planning, medical issues, relationships, e tc)? Yes. COMPREHENSION - STEP 2: Does the patient require help to understand questions or statements about basic needs or ideas (such as hunger, thirst, sleep, safety, daily schedule, room location, or discomfort) half or more of the t meche? No. COMPREHENSION - STEP 3: How often does the patient need help to understand directions and conversation about basic needs? 10% - 24% of the time COMPREHENSION - SCORE: 4-MIN EXPRESSION EXPRESSION: TYPE: Both EXPRESSION - STEP 1: Does the patient require help from a person or device, or need extra time expressing complex and abst ract ideas (such as current events, finances, discharge planning, medical issues, relationships, etc) ? No. EXPRESSION - STEP 2: Does the patient need extra time, require an assistive device (such as augmentive communication syste m or a communication board), OR does s/he have mild difficulty expressing complex and abstract ideas (including mild dysarthria or mild word-find problems)? Yes. EXPRESSION - SCORE: 6-SUSANA SOCIAL INTERACTION: SOCIAL INTERACTION - STEP 1: Does the patient require a helper to interact with others in social and therapeutic situations? No. SOCIAL INTERACTION - STEP 2: Does the patient need extra time in social situations, OR does s/he interact with staff, other patien ts, and family members ONLY in structured environments, OR does s/he require medication for social in teraction? Yes, patient requires medication for social interaction SOCIAL INTERACTION - SCORE: 6-SUSANA PROBLEM SOLVING: PROBLEM SOLVING - STEP 1: Does the patient need help from a person or device, or need extra time to solve complex problems such as managing a checking account or confronting interpersonal problems? Yes. PROBLEM SOLVING - STEP 2: Does the patient solve basic routine problems half or more of the time? Yes. PROBLEM SOLVING - STEP 3: How often does the patient need help to solve basic routine problems? 10%-24% of the time PROBLEM SOLVING - SCORE: 4-MIN MEMORY: MEMORY - STEP 1: Does the patient need help from a person or device, or need extra time to remember frequently encount ered people, daily routines, and executing requests? No. MEMORY - STEP 2: Does the patient have slight difficulty recognizing frequently encountered people, daily routines, or executing requests without the need for repetition or using self-initiated or environmental cues to remember? Yes. MEMORY - SCORE: 6-SUSANA SIGNATURE PANEL: The following modified sections: Eating - Score, Grooming - Score, Dressing - Upper Body - Score, Kenny ssing - Lower Body - Score, Toileting - Score, Bladder Management - Score, Bowel Management - Score, Transfers: Bed, Chair, Wheelchair - Score, Transfers: Toilet - Score, Transfers: Shower - Score, Bello sfers: Tub - Score, Locomotion: Walk - Score, Locomotion: Wheelchair - Score, Comprehension - Score, Expression - Score, Social Interaction - Score, Problem Solving - Score, Memory - Score were [electro nically] signed by Viri Pretty CNA on MonJul 27 2018 02:09:02 GMT-0500 (Central Daylight Time)
[2018-07-27] MEDS: ACETAMINOPHEN 500 MG TAB PO PRN ×2 (04:39→13:02)
[2018-07-27] MEDS: LEVOTHYROXINE SOD 0.075 MG TAB PO SCH (07:10)
[2018-07-27] MEDS: PANTOPRAZOLE 40MG TABLET PO SCH (07:10)
[2018-07-27] MEDS: VENLAFAXINE HCL XR 75 MG CAP PO SCH (08:10)
[2018-07-27] MEDS: hydroCHLOROthiazide 25 MG TAB PO SCH (08:10)
[2018-07-27] MEDS: LISINOPRIL 20 MG TAB PO SCH (08:10)
[2018-07-27] MEDS: SOLIFENACIN SUCCIN 5 MG TAB PO SCH (08:11)
[2018-07-27] MEDS: RIVAROXABAN 15 MG TABLET PO SCH (08:11)
[2018-07-27] MEDS: FE SULF/FA/VIT B COMP & C TAB PO SCH (08:11)
[2018-07-27] MEDS: CRANBERRY FRUIT EXTRACT 200 MG CAP PO SCH ×2 (08:11→19:45)
[2018-07-27] MEDS: BACLOFEN 10 MG TAB PO SCH ×2 (08:11→19:45)
[2018-07-27] MEDS: GABAPENTIN 300 MG CAP PO SCH ×2 (08:12→19:44)
[2018-07-27] MEDS: DULOXETINE 20 MG CAP PO SCH (08:12)
[2018-07-27] MEDS: MAGNESIUM OXIDE 400 MG TAB PO SCH ×2 (08:12→19:43)
[2018-07-27] MEDS: AMLODIPINE 5 MG TAB PO SCH (08:12)
[2018-07-27] MEDS: FERROUS SULFATE 325 MG TAB PO SCH (08:12)
[2018-07-27] MEDS: PROMOD 30 ML DOSE PO SCH ×2 (08:13→19:46)
[2018-07-27] MEDS: TRAMADOL HCL 50 MG TAB PO PRN (09:09)
--- NOTE | 2018-07-27 09:45 | P.RH.PN ---
Estimated Length of Stay: 23 Expected Discharge Date: 07/31/18 Discharge Disposition Plan: Home Family Support: Yes Snf Goal: Mobility, Transfers, Self Care Vital Signs: Last Vital Signs Temp 97.3 F 07/27/18 06:50 Pulse 70 07/27/18 08:12 Resp 16 07/27/18 06:50 BP 146/64 H 07/27/18 08:12 Pulse Ox 97 07/27/18 06:50 Laboratory: Laboratory Last Values WBC 6.7 K/uL (4.3-10.9) D 07/26/18 05:44 RBC 3.58 M/uL (3.86-4.86) L 07/26/18 05:44 Hgb 11.7 g/dL (12.0-15.0) L 07/26/18 05:44 Hct 35.8 % (36.0-45.0) L 07/26/18 05:44 MCV 100.0 fL (80-100) 07/26/18 05:44 MCH 32.5 pg (27.0-35.0) 07/26/18 05:44 MCHC 32.5 g/dL (32.0-36.0) 07/26/18 05:44 RDW 15.0 % (12.1-15.2) 07/26/18 05:44 Plt Count 265 K/uL (152-406) D 07/26/18 05:44 MPV 7.8 fL (7.6-11.3) 07/26/18 05:44 Neutrophils % 57.4 % (41.7-73.7) 07/26/18 05:44 Lymphocytes % 32.4 % (15.3-44.8) 07/26/18 05:44 Monocytes % 7.9 % (3.3-12.3) 07/26/18 05:44 Eosinophils % 1.5 % (0-4.4) 07/26/18 05:44 Basophils % 0.8 % (0-1.3) 07/26/18 05:44 Absolute Neutrophils 3.8 K/uL (1.8-8.0) 07/26/18 05:44 Absolute Lymphocytes 2.2 K/uL (0.7-4.9) 07/26/18 05:44 Absolute Monocytes 0.5 K/uL (0.1-1.3) 07/26/18 05:44 Absolute Eosinophils 0.1 K/uL (0-0.5) 07/26/18 05:44 Absolute Basophils 0.1 K/uL (0-0.5) 07/26/18 05:44 pH 7.47 (7.35-7.45) H 07/15/18 18:55 pCO2 42.4 mmHG (35-45) 07/15/18 18:55 pO2 90.9 mmHG (75-100) 07/15/18 18:55 HCO3 30.6 mmol/L (22-28) H 07/15/18 18:55 Base Excess 6.8 mmol/L 07/15/18 18:55 Oxyhemoglobin 95.2 % (94-97) 07/15/18 18:55 ABG O2 Sat (Measured) 97.4 % (92-98.5) 07/15/18 18:55 ABG Carboxyhemoglobin 1.8 % (0-1.5) H 07/15/18 18:55 ABG Methemoglobin 0.5 % (0-1.5) 07/15/18 18:55 Other Total Hgb 11.1 g/dl (12-18) L 07/15/18 18:55 Inspired O2 24.0 % 07/15/18 18:55 Sodium 141 mmol/L (136-145) 07/26/18 05:44 Potassium 3.6 mmol/L (3.5-5.1) 07/26/18 05:44 Chloride 106 mmol/L (98-107) 07/26/18 05:44 Carbon Dioxide 30 mmol/L (21-32) 07/26/18 05:44 BUN 15 mg/dL (7-18) 07/26/18 05:44 Creatinine 0.73 mg/dL (0.55-1.3) 07/26/18 05:44 Estimated GFR 76 mL/min (=/>90) L 07/26/18 05:44 Glucose 116 mg/dL (74-106) H 07/26/18 05:44 Calcium 9.1 mg/dL (8.5-10.1) 07/26/18 05:44 Magnesium 2.0 mg/dL (1.8-2.4) 07/26/18 05:44 Albumin 2.8 g/dL (3.4-5.0) L 07/26/18 05:44 Prealbumin 17.4 mg/dL (20-40) L 07/26/18 05:44 Weight: 238 lb 1.6 oz Wound Present: No Closed Surgical Incision Present: Yes Negative Pressure Wound Therapy Present: No Physician Update: Labs have been reviewed and are stable. Hgb is 11.7, prealbumin is normal at 24. She reports chronic spasms and pain in the left thigh. However, her affect is not congruent with her symptoms. She is doing very well with physical and occupational therapy. Medical Issues: DVT Prophylaxis - Xarelto 15mg Daily Pain Issues: Lidoderm patch 2 patch daily. Tramadol 100mg Q4H PRN. Tylenol 500mg Q6H PRN Functional Improvement: Patient has met all short-term goals at this time, and is progressing toward long-term goals. Patient has shown improvement w/ stamina and techique w/ activities. Functional Improvement Occupational Therapy: Patient has met all STG as set in POC, however, continues to benefit from further OT to address the LTG as set in POC before a safe d/c home setting. Summary: Patient's care plan and moth exterminator goals have been reviewed and revised as necessary. Please see the Rehabilitation Signature page for all necessary signatures.
--- NOTE | 2018-07-27 14:22 | FAST ---
ENCOUNTER DATE AND TIME: 07/27/2018 08:00 (CDT) NAME LINH SANDS DATE OF : 1935 DATE OF ADMISSION: 07/09/2018 17:51 (DIALYSIS PATIENT CARE TECHNICIAN) PHONE: AGE: 83 SSN# [id number] GENDER: Female ENCOUNTER PHYSICIAN: Dr. Rambo De La Rosa M.D. ADMISSION DIAGNOSIS: - Orthopaedic Disorders 08 - Unilateral Hip Fracture (08.11) Left Hip Fracture. EATING: Activity did not occur on this shift EATING - SCORE: 0-UNK GROOMING: Activity did not occur on this shift GROOMING - SCORE: 0-UNK BATHING: Activity did not occur on this shift BATHING - SCORE: 0-UNK DRESSING - UPPER BODY: Activity did not occur on this shift Patient is not dressing in public clothing ARTICLES SCORE Total number of steps: 0 DRESSING - UPPER BODY - SCORE: 0-UNK DRESSING - LOWER BODY: Activity did not occur on this shift Patient is not dressing in public clothing ARTICLES SCORE Total number of steps: 0 DRESSING - LOWER BODY - SCORE: 0-UNK TOILETING: Activity did not occur on this shift TOILETING - SCORE: 0-UNK BLADDER MANAGEMENT: Activity did not occur on this shift BLADDER MANAGEMENT - SCORE: 7-IND BOWEL MANAGEMENT: Activity did not occur on this shift BOWEL MANAGEMENT - SCORE: 7-IND TRANSFERS: BED, CHAIR, WHEELCHAIR: TRANSFERS: BED, CHAIR, WHEELCHAIR - STEP 1: Does the patient require assistance of a person or device, or need extra time with bed, chair, or whe elchair transfers? Yes. TRANSFERS: BED, CHAIR, WHEELCHAIR - STEP 2: Does the patient require the assistance of a helper? Yes. TRANSFERS: BED, CHAIR, WHEELCHAIR - STEP 3: How much assistance does the patient require from the helper? Only supervision TRANSFERS: BED, CHAIR, WHEELCHAIR - SCORE: 5-SUP TRANSFERS: TOILET: Activity did not occur on this shift TRANSFERS: TOILET - SCORE: 0-UNK TRANSFERS: SHOWER: Activity did not occur on this shift TRANSFERS: SHOWER - SCORE: 0-UNK TRANSFERS: TUB: Activity did not occur on this shift TRANSFERS: TUB - SCORE: 0-UNK LOCOMOTION: WALK: LOCOMOTION: WALK - STEP 1: Does the patient need help from a person or device, or need extra time to walk 150 feet? Yes. LOCOMOTION: WALK - STEP 2: How much assistance does the patient require to walk a minimum of 150 feet? Only supervision, cuing, or coaxing LOCOMOTION: WALK - SCORE: 5-SUP LOCOMOTION: WHEELCHAIR: LOCOMOTION: WHEELCHAIR - STEP 1: Does the patient need help to go 150 feet in a wheelchair? No. LOCOMOTION: WHEELCHAIR - SCORE: 6-SUSANA LOCOMOTION: STAIRS: LOCOMOTION: STAIRS - STEP 1: Does the patient need help to go up and down 12 to 14 stairs? Yes. LOCOMOTION: STAIRS - STEP 2: How much assistance does the patient need from the helper to go a minimum of 12 to 14 stairs? The pat ient goes less than 12 stairs, but at least 4 stairs LOCOMOTION: STAIRS - SCORE: 2-MAX COMPREHENSION: COMPREHENSION - SCORE: 0-UNK EXPRESSION EXPRESSION - SCORE: 0-UNK SOCIAL INTERACTION: SOCIAL INTERACTION - SCORE: 0-UNK PROBLEM SOLVING: PROBLEM SOLVING - SCORE: 0-UNK MEMORY: MEMORY - SCORE: 0-UNK SIGNATURE PANEL: The following modified sections: Transfers: Bed, Chair, Wheelchair - Score, Transfers: Toilet - Score , Locomotion: Walk - Score, Locomotion: Wheelchair - Score, Locomotion: Stairs - Score were [electron ically] signed by Roberto Sumner PTA on MonJul 27 2018 14:21:19 GMT-0500 (Central Daylight Time)
[2018-07-27] MEDS: LIDOCAINE 5% PATCH TOP SCH (14:38)
[2018-07-27] MEDS: NYSTATIN PWDR 100000 UNIT/GM TOP SCH ×2 (14:39→19:46)
--- NOTE | 2018-07-27 14:40 | FAST ---
ENCOUNTER DATE AND TIME: 07/26/2018 08:00 (CDT) NAME ILNH SANDS DATE OF : 1935 DATE OF ADMISSION: 07/09/2018 17:51 (BELL MAKER) PHONE: AGE: 83 SSN# [id number] GENDER: Female ENCOUNTER PHYSICIAN: Dr. Rambo De La Rosa M.D. ADMISSION DIAGNOSIS: - Orthopaedic Disorders 08 - Unilateral Hip Fracture (08.11) Left Hip Fracture. EATING: Activity did not occur on this shift EATING - SCORE: 0-UNK GROOMING: Activity did not occur on this shift GROOMING - SCORE: 0-UNK BATHING: Activity did not occur on this shift BATHING - SCORE: 0-UNK DRESSING - UPPER BODY: Activity did not occur on this shift Patient is not dressing in public clothing ARTICLES SCORE Total number of steps: 0 DRESSING - UPPER BODY - SCORE: 0-UNK DRESSING - LOWER BODY: Activity did not occur on this shift Patient is not dressing in public clothing ARTICLES SCORE Total number of steps: 0 DRESSING - LOWER BODY - SCORE: 0-UNK TOILETING: Activity did not occur on this shift TOILETING - SCORE: 0-UNK BLADDER MANAGEMENT: Activity did not occur on this shift BLADDER MANAGEMENT - SCORE: 7-IND BOWEL MANAGEMENT: Activity did not occur on this shift BOWEL MANAGEMENT - SCORE: 7-IND TRANSFERS: BED, CHAIR, WHEELCHAIR: TRANSFERS: BED, CHAIR, WHEELCHAIR - STEP 1: Does the patient require assistance of a person or device, or need extra time with bed, chair, or whe elchair transfers? Yes. TRANSFERS: BED, CHAIR, WHEELCHAIR - STEP 2: Does the patient require the assistance of a helper? Yes. TRANSFERS: BED, CHAIR, WHEELCHAIR - STEP 3: How much assistance does the patient require from the helper? Only supervision TRANSFERS: BED, CHAIR, WHEELCHAIR - SCORE: 5-SUP TRANSFERS: TOILET: Activity did not occur on this shift TRANSFERS: TOILET - SCORE: 0-UNK TRANSFERS: SHOWER: Activity did not occur on this shift TRANSFERS: SHOWER - SCORE: 0-UNK TRANSFERS: TUB: Activity did not occur on this shift TRANSFERS: TUB - SCORE: 0-UNK LOCOMOTION: WALK: LOCOMOTION: WALK - STEP 1: Does the patient need help from a person or device, or need extra time to walk 150 feet? Yes. LOCOMOTION: WALK - STEP 2: How much assistance does the patient require to walk a minimum of 150 feet? Only supervision, cuing, or coaxing LOCOMOTION: WALK - SCORE: 5-SUP LOCOMOTION: WHEELCHAIR: LOCOMOTION: WHEELCHAIR - STEP 1: Does the patient need help to go 150 feet in a wheelchair? No. LOCOMOTION: WHEELCHAIR - SCORE: 6-SUSANA LOCOMOTION: STAIRS: Activity did not occur on this shift LOCOMOTION: STAIRS - SCORE: 0-UNK COMPREHENSION: COMPREHENSION - SCORE: 0-UNK EXPRESSION EXPRESSION - SCORE: 0-UNK SOCIAL INTERACTION: SOCIAL INTERACTION - SCORE: 0-UNK PROBLEM SOLVING: PROBLEM SOLVING - SCORE: 0-UNK MEMORY: MEMORY - SCORE: 0-UNK SIGNATURE PANEL: The following modified sections: Transfers: Bed, Chair, Wheelchair - Score, Transfers: Toilet - Score , Locomotion: Walk - Score, Locomotion: Wheelchair - Score, Locomotion: Stairs - Score were [electron ically] signed by Roberto Sumner PTA on MonJul 27 2018 14:39:33 T-0500 (Central Daylight Time)
[2018-07-27] MEDS: TRAZODONE 50 MG TABLET PO PRN (19:44)
[2018-07-27] MEDS: DOCUSATE NA/SENNA CONC 1 TAB PO SCH (20:43)
[2018-07-27] MEDS: PRAMIPEXOLE 0.25 MG TAB PO SCH (20:43)
[2018-07-27] MEDS: MELATONIN 3 MG TABLET PO PRN (21:40)
[2018-07-27] MEDS ORDERED: TRAZODONE 50 MG TABLET PO PRN (22:26)
[2018-07-28] MEDS: ACETAMINOPHEN 500 MG TAB PO PRN ×2 (02:05→23:21)
[2018-07-28] MEDS: LEVOTHYROXINE SOD 0.075 MG TAB PO SCH (07:05)
[2018-07-28] MEDS: PANTOPRAZOLE 40MG TABLET PO SCH (07:06)
[2018-07-28] MEDS: NYSTATIN PWDR 100000 UNIT/GM TOP SCH ×2 (08:00→19:49)
[2018-07-28] MEDS: LIDOCAINE 5% PATCH TOP SCH (09:19)
[2018-07-28] MEDS: CRANBERRY FRUIT EXTRACT 200 MG CAP PO SCH ×2 (09:20→19:50)
[2018-07-28] MEDS: FERROUS SULFATE 325 MG TAB PO SCH (09:21)
[2018-07-28] MEDS: AMLODIPINE 5 MG TAB PO SCH (09:22)
[2018-07-28] MEDS: VENLAFAXINE HCL XR 75 MG CAP PO SCH (09:23)
[2018-07-28] MEDS: LISINOPRIL 20 MG TAB PO SCH (09:23)
[2018-07-28] MEDS: DULOXETINE 20 MG CAP PO SCH (09:23)
[2018-07-28] MEDS: FE SULF/FA/VIT B COMP & C TAB PO SCH (09:24)
[2018-07-28] MEDS: hydroCHLOROthiazide 25 MG TAB PO SCH (09:24)
[2018-07-28] MEDS: MAGNESIUM OXIDE 400 MG TAB PO SCH ×2 (09:24→19:50)
[2018-07-28] MEDS: GABAPENTIN 300 MG CAP PO SCH ×2 (09:24→19:50)
[2018-07-28] MEDS: BACLOFEN 10 MG TAB PO SCH ×2 (09:24→19:50)
[2018-07-28] MEDS: RIVAROXABAN 15 MG TABLET PO SCH (09:24)
[2018-07-28] MEDS: SOLIFENACIN SUCCIN 5 MG TAB PO SCH (09:24)
[2018-07-28] MEDS: PROMOD 30 ML DOSE PO SCH ×2 (09:25→19:49)
--- NOTE | 2018-07-28 12:43 | FAST ---
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 Rambo De La Rosa M.D. ADMISSION DIAGNOSIS: - Orthopaedic Disorders 08 - Unilateral Hip Fracture (08.11) Left Hip Fracture. EATING: EATING - STEP 1: Does the patient require the assistance of a person or device, or need extra time when eating? Yes. EATING - STEP 2: Does the patient require the assistance of a helper? No, patient only requires an assistive device, O R s/he takes more than reasonable time to eat, OR there is a safety concern, OR s/he requires modifie d food consistency EATING - SCORE: 6-SUSANA GROOMING: Comb/brush hair Oral care Wash, rinse, and dry face Wash, rinse, and dry hands GROOMING - STEP 1: Does the patient require the assistance of a person or device, or need extra time when grooming? No. GROOMING - SCORE: 7-IND BATHING: Activity did not occur on this shift BATHING - SCORE: 0-UNK DRESSING - UPPER BODY: Activity did not occur on this shift ARTICLES SCORE Total number of steps: 0 DRESSING - UPPER BODY - SCORE: 0-UNK DRESSING - LOWER BODY: Activity did not occur on this shift ARTICLES SCORE Total number of steps: 0 DRESSING - LOWER BODY - SCORE: 0-UNK TOILETING: TOILETING - STEP 1: Does the patient require the assistance of a person or device, or need extra time with toileting? Yes . TOILETING - STEP 2: Does the patient require the assistance of a helper? Yes. TOILETING - STEP 3: How much assistance does the patient require from the helper? Hands-on assistance from the helper TOILETING - STEP 4: Of the 3 tasks: 1) Adjusting clothing prior to use, 2) Cleansing of perineal area, 3) Adjusting clot penny after use; How many tasks does the patient perform WITHOUT assistance of the helper? Two tasks TOILETING - SCORE: 3-MOD BLADDER MANAGEMENT: BLADDER MANAGEMENT - STEP 1: Does the patient control the bladder completely and intentionally without equipment or devices or med ications, and is always continent? No. BLADDER MANAGEMENT - STEP 2: Does the patient require the assistance of a helper? No, patient requires and independently uses an a ssistive device, such as a urinal, bedpan, bedside commode, catheter, absorbent pad, or collecting de vice BLADDER MANAGEMENT - SCORE: 6-SUSANA BLADDER MANAGEMENT - FREQUENCY OF ACCIDENTS: BLADDER MANAGEMENT(FA) - STEP 1: How many accidents has the patient had during the current shift? 2 BOWEL MANAGEMENT: Activity did not occur on this shift BOWEL MANAGEMENT - SCORE: 7-IND TRANSFERS: BED, CHAIR, WHEELCHAIR: TRANSFERS: BED, CHAIR, WHEELCHAIR - STEP 1: Does the patient require assistance of a person or device, or need extra time with bed, chair, or whe elchair transfers? Yes. TRANSFERS: BED, CHAIR, WHEELCHAIR - STEP 2: Does the patient require the assistance of a helper? Yes. TRANSFERS: BED, CHAIR, WHEELCHAIR - STEP 3: How much assistance does the patient require from the helper? Steadying/guiding assistance TRANSFERS: BED, CHAIR, WHEELCHAIR - SCORE: 4-MIN TRANSFERS: TOILET: TRANSFERS: TOILET - STEP 1: Does the patient require the assistance of a person or device, or need extra time with toilet transfe rs? Yes. TRANSFERS: TOILET - STEP 2: Does the patient require the assistance of a helper? Yes. TRANSFERS: TOILET - STEP 3: How much assistance does the patient require from the helper? Patient performs half or more of the tr ansferring tasks TRANSFERS: TOILET - STEP 4: Does the patient need only incidental help such as contact guard or steadying during toilet transfer? Yes. TRANSFERS: TOILET - SCORE: 4-MIN TRANSFERS: SHOWER: Activity did not occur on this shift TRANSFERS: SHOWER - SCORE: 0-UNK TRANSFERS: TUB: Activity did not occur on this shift TRANSFERS: TUB - SCORE: 0-UNK LOCOMOTION: WALK: Activity did not occur on this shift LOCOMOTION: WALK - SCORE: 0-UNK LOCOMOTION: WHEELCHAIR: Activity did not occur on this shift LOCOMOTION: WHEELCHAIR - SCORE: 0-UNK COMPREHENSION: COMPREHENSION: TYPE: Both COMPREHENSION - STEP 1: Does the patient require help from a person or device, or need extra time to understand complex and a bstract ideas (such as current events, finances, discharge planning, medical issues, relationships, e tc)? No. COMPREHENSION - STEP 2: Does the patient need extra time, require an assistive device (such as glasses for visual comprehensi on or a hearing aid for auditory comprehension) or does s/he have mild difficulty understanding compl ex and abstract information? Yes. COMPREHENSION - SCORE: 6-SUSANA EXPRESSION EXPRESSION: TYPE: Both EXPRESSION - STEP 1: Does the patient require help from a person or device, or need extra time expressing complex and abst ract ideas (such as current events, finances, discharge planning, medical issues, relationships, etc) ? No. EXPRESSION - STEP 2: Does the patient need extra time, require an assistive device (such as augmentive communication syste m or a communication board), OR does s/he have mild difficulty expressing complex and abstract ideas (including mild dysarthria or mild word-find problems)? Yes. EXPRESSION - SCORE: 6-SUSANA SOCIAL INTERACTION: SOCIAL INTERACTION - STEP 1: Does the patient require a helper to interact with others in social and therapeutic situations? No. SOCIAL INTERACTION - STEP 2: Does the patient need extra time in social situations, OR does s/he interact with staff, other patien ts, and family members ONLY in structured environments, OR does s/he require medication for social in teraction? Yes, patient needs extra time SOCIAL INTERACTION - SCORE: 6-SUSANA PROBLEM SOLVING: PROBLEM SOLVING - STEP 1: Does the patient need help from a person or device, or need extra time to solve complex problems such as managing a checking account or confronting interpersonal problems? No. PROBLEM SOLVING - STEP 2: Does the patient require extra time to make decisions or solve problems, OR does s/he have slight dif ficulty reading, initiating, or self-correcting in unfamiliar situations? Yes, patient needs extra ti me. PROBLEM SOLVING - SCORE: 6-SUSANA MEMORY: MEMORY - STEP 1: Does the patient need help from a person or device, or need extra time to remember frequently encount ered people, daily routines, and executing requests? No. MEMORY - STEP 2: Does the patient have slight difficulty recognizing frequently encountered people, daily routines, or executing requests without the need for repetition or using self-initiated or environmental cues to remember? Yes. MEMORY - SCORE: 6-SUSANA SIGNATURE PANEL: The following modified sections: Eating - Score, Grooming - Score, Bathing - Score, Dressing - Upper Body - Score, Dressing - Lower Body - Score, Toileting - Score, Bladder Management - Score, Bowel Man agement - Score, Transfers: Bed, Chair, Wheelchair - Score, Transfers: Toilet - Score, Transfers: Rubi wer - Score, Transfers: Tub - Score, Locomotion: Walk - Score, Locomotion: Wheelchair - Score, Compre hension - Score, Expression - Score, Social Interaction - Score, Problem Solving - Score, Memory - Sc ore were [electronically] signed by Julio Marin on Sat Jul 28 2018 12:42:47 GMT-0500 (Central Daylight Time)
--- NOTE | 2018-07-28 15:42 | R.PN ---
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 Pt denied any Shortness of Breath. Labs reviewed. Hgb 11.7, prealbumin 17.4, [id number]. Ambulated 200' with standby assistance using a rolling walker. Self-propelled wheelchair 200' with mo dified independence. Up and down 3 steps with standby assistance. Using tylenol and tramadol for pain relief. VITAL SIGNS Temperature: 97.9 F SBP/DBP: 132/62 Pulse: 70 Resp: 14 MEDICATION ALLERGIES: Codeine ENVIRONMENTAL ALLERGIES: None Known - Substance Allergies None Known - Other Allergies None Known NURSING: - Shower allowing shower - Skin care per protocol PRECAUTIONS: - Posterior Hip Precaution No adduction across midline No external rotation No hip flexion >90 degrees No internal rotation No wheel chair propulsion - Weight Bearing Precaution WBAT left LE ACTIVITIES OOB only with supervision THERAPIES: - Occupational Therapy Evaluate and Treat. - Physical Therapy Evaluate and Treat. PHYSICAL EXAM - Gen Alert and awake Lying in bed No apparent distress Oriented to: person, time, and place - Skin No breakdown No abnormalities - Eyes No abnormalities - ENMT No abnormalities - Neck No abnormalities - CVS RRR - Chest No abnormalities - Resp Clear to auscultation - Abd +bowel sounds - GI Soft Deferred - No abnormalities - Ext Left hip surgical site has good hemostasis. - MSK 4+/5 weakness in left lower extremity - Neuro 4/5 strength left lower extremity. - Psych No abnormalities ASSESSMENT: Pt. is a 83 yo Right-handed white female.On 06/29/2018 she was admitted to [facility] with francesca gnosis Left Hip Fracture.Her impairment category is Orthopaedic Disorders 08 - Unilateral Hip Fractu re (.).Pre-morbidly, Pt. was independent/mod-I in Self-Care, Sphincter Control, Transfers Control , Communication, Social Cognition, and Locomotion; and she had good Sphincter Control.Currently, she has deficits of Self-Care, Transfers Control, Endurance, Balance, Safety Awareness, and Locomotion.Pt . is now referred to [facility] for acute in-patient rehabilitation in order t o maximize patient's functional independence in activities of daily living, strength, ROM, and mobili ty.- Rehab Goal Patient has realistic goal of being discharged at assistance level 6-Radha to reside at Home with Fam wilmer/Relatives. MDM/PLAN: - Physical Therapy Decreased range of motion - to improve, our physical therapists will perform initial evaluation of p t's status upon admission and devise an individualized program for increasing patient's Range of Gianni on. Gait dysfunction - to improve, our physical therapists will perform initial evaluation of pt's statu s upon admission and devise an individualized program for Gait Training, and Wheel Chair mobility Inability to transfer - to improve, our physical therapists will perform initial evaluation of pt's status upon admission and devise an individualized program for Bed mobility Need for home safety evaluation - to improve, our physical therapists will perform initial evaluatio n of pt's status upon admission and devise an individualized program for Home Evaluation Need in caregiver upon discharge - to improve, our physical therapists will perform initial evaluati on of pt's status upon admission and devise an individualized program for Caregiver Training New precaution - to improve, our physical therapists will perform initial evaluation of pt's status upon admission and devise an individualized program for Patient precaution education Poor balance - to improve, our physical therapists will perform initial evaluation of pt's status up on admission and devise an individualized program for Balance Training Poor endurance - to improve, our physical therapists will perform initial evaluation of pt's status upon admission and devise an individualized program for Endurance Training Weakness - to improve, our physical therapists will perform initial evaluation of pt's status upon a dmission and devise an individualized program for Aquatic Therapy, Neuromuscular Reeducation, and Str engthening Achieving independence - to improve, our physical therapists will perform initial evaluation of pt's status upon admission and devise an individualized program for Community Reintegration Activities - Occupational Therapy ADL deficits - to improve, our occupation therapists will perform initial evaluation of pt's status upon admission and devise an individualized program for Bathing, Bed mobility, Community Reintegratio n, Cooking, Dressing, Eating, Fine Motor Skills, Grooming, Homemaking, Kitchen Mobility, Laundry, Pat ient Education, Safety Awareness, Splinting - Positioning, Transfers(Toilet, Tub, Shower), and Wheel Chair Management Need for careers counsellor - to improve, our occupation therapists will perform initial evaluation of pt's status upon admission and devise an individualized program for Caregiver Training Weakness - to improve, our occupation therapists will perform initial evaluation of pt's status upon admission and devise an individualized program for Aquatic Therapy, Balance, Endurance, UE ROM, and UE strengthening - Anterior Hip Precaution No abduction No active extension No adduction across midline No external rotation No hip flexion >90 degrees No internal rotation - Diet - Liquid Texture Continue Regular - Tube Feed Continue N/A - Diet Type Continue Regular - Posterior Hip Precaution No adduction across midline No external rotation No hip flexion >90 degrees No internal rotation No wheel chair propulsion - Weight Bearing Precaution WBAT left LE - Skin care per protocol - Diet - Solid Texture Continue Regular - Shower allowing shower FUNCTIONAL STATUS: UPDATED AT WEEKLY TEAM CONFERENCE - Bladder Same accident frequency: 7-Ind - No accidents in the past 7 days - Bowel Same accident frequency: 7-Ind - No accidents in the past 7 days - Walking Same score based on distance walked: 3(>=150ft) FUNCTIONAL STATUS: - Self-Care A. Eating sup B. Grooming sup C. Bathing modA D. Dressing - Upper Maria Isabel E. Dressing - Lower maxA F. Toileting modA - Sphincter Control G: Bladder control Ind H: Bowel control Ind - Transfers Control I. Bed/Chair/Wheelchair Maria Isabel J. Toilet Maria Isabel K. Tub/Shower modA - Locomotion L. Walk/Wheelchair (B) Maria Isabel M. Stairs ADNO - Communication N. Comprehension (B) Radha O. Expression (B) Radha - Social Cognition P. Social Interaction Radha Q. Problem Solving Radha R. Memory Radha - Endurance Fair - Balance Fair - Safety Awareness Fair CURRENT FUNC. DEFICITS: Self-Care, Transfers Control, Endurance, Balance, Safety Awareness, and Locomotion SIGNATURE PANEL: (CDT)
[2018-07-28] MEDS: TRAMADOL HCL 50 MG TAB PO PRN (19:50)
[2018-07-28] MEDS: DOCUSATE NA/SENNA CONC 1 TAB PO SCH (19:59)
[2018-07-28] MEDS: PRAMIPEXOLE 1 MG TAB PO SCH (20:00)
[2018-07-28] MEDS: MELATONIN 3 MG TABLET PO PRN (23:21)
[2018-07-29] MEDS: TRAMADOL HCL 50 MG TAB PO PRN ×3 (02:24→12:54)
--- NOTE | 2018-07-29 03:34 | FAST ---
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 Rambo De La Rosa M.D. ADMISSION DIAGNOSIS: - Orthopaedic Disorders 08 - Unilateral Hip Fracture (08.11) Left Hip Fracture. EATING: Activity did not occur on this shift EATING - SCORE: 0-UNK GROOMING: Activity did not occur on this shift GROOMING - SCORE: 0-UNK BATHING: Activity did not occur on this shift BATHING - SCORE: 0-UNK DRESSING - UPPER BODY: Patient is not dressing in public clothing ARTICLES SCORE Total number of steps: 0 DRESSING - UPPER BODY - SCORE: 0-UNK DRESSING - LOWER BODY: Patient is not dressing in public clothing ARTICLES SCORE Total number of steps: 0 DRESSING - LOWER BODY - SCORE: 0-UNK TOILETING: TOILETING - STEP 1: Does the patient require the assistance of a person or device, or need extra time with toileting? Yes . TOILETING - STEP 2: Does the patient require the assistance of a helper? Yes. TOILETING - STEP 3: How much assistance does the patient require from the helper? Hands-on assistance from the helper TOILETING - STEP 4: Of the 3 tasks: 1) Adjusting clothing prior to use, 2) Cleansing of perineal area, 3) Adjusting clot penny after use; How many tasks does the patient perform WITHOUT assistance of the helper? No tasks; h elper performs all three tasks TOILETING - SCORE: 1-DEP BLADDER MANAGEMENT: [place] removes incontinent device (Depends, pull ups, etc.); cleans the patient after accident / inco ntinent episode; and, applies new incontinent device. BLADDER MANAGEMENT - SCORE: 1-DEP BOWEL MANAGEMENT: Activity did not occur on this shift BOWEL MANAGEMENT - SCORE: 7-IND TRANSFERS: BED, CHAIR, WHEELCHAIR: TRANSFERS: BED, CHAIR, WHEELCHAIR - STEP 1: Does the patient require assistance of a person or device, or need extra time with bed, chair, or whe elchair transfers? Yes. TRANSFERS: BED, CHAIR, WHEELCHAIR - STEP 2: Does the patient require the assistance of a helper? Yes. TRANSFERS: BED, CHAIR, WHEELCHAIR - STEP 3: How much assistance does the patient require from the helper? Lifting of the legs TRANSFERS: BED, CHAIR, WHEELCHAIR - STEP 4: How many legs does the patient require the helper to lift? both legs TRANSFERS: BED, CHAIR, WHEELCHAIR - SCORE: 3-MOD TRANSFERS: TOILET: TRANSFERS: TOILET - STEP 1: Does the patient require the assistance of a person or device, or need extra time with toilet transfe rs? Yes. TRANSFERS: TOILET - STEP 2: Does the patient require the assistance of a helper? Yes. TRANSFERS: TOILET - STEP 3: How much assistance does the patient require from the helper? Patient performs half or more of the tr ansferring tasks TRANSFERS: TOILET - STEP 4: Does the patient need only incidental help such as contact guard or steadying during toilet transfer? Yes. TRANSFERS: TOILET - SCORE: 4-MIN TRANSFERS: SHOWER: Activity did not occur on this shift TRANSFERS: SHOWER - SCORE: 0-UNK TRANSFERS: TUB: Activity did not occur on this shift TRANSFERS: TUB - SCORE: 0-UNK LOCOMOTION: WALK: Activity did not occur on this shift LOCOMOTION: WALK - SCORE: 0-UNK LOCOMOTION: WHEELCHAIR: Activity did not occur on this shift LOCOMOTION: WHEELCHAIR - SCORE: 0-UNK COMPREHENSION: COMPREHENSION: TYPE: Both COMPREHENSION - STEP 1: Does the patient require help from a person or device, or need extra time to understand complex and a bstract ideas (such as current events, finances, discharge planning, medical issues, relationships, e tc)? No. COMPREHENSION - STEP 2: Does the patient need extra time, require an assistive device (such as glasses for visual comprehensi on or a hearing aid for auditory comprehension) or does s/he have mild difficulty understanding compl ex and abstract information? Yes. COMPREHENSION - SCORE: 6-SUSANA EXPRESSION EXPRESSION: TYPE: Both EXPRESSION - STEP 1: Does the patient require help from a person or device, or need extra time expressing complex and abst ract ideas (such as current events, finances, discharge planning, medical issues, relationships, etc) ? No. EXPRESSION - STEP 2: Does the patient need extra time, require an assistive device (such as augmentive communication syste m or a communication board), OR does s/he have mild difficulty expressing complex and abstract ideas (including mild dysarthria or mild word-find problems)? No. EXPRESSION - SCORE: 7-IND SOCIAL INTERACTION: SOCIAL INTERACTION - STEP 1: Does the patient require a helper to interact with others in social and therapeutic situations? No. SOCIAL INTERACTION - STEP 2: Does the patient need extra time in social situations, OR does s/he interact with staff, other patien ts, and family members ONLY in structured environments, OR does s/he require medication for social in teraction? Yes, patient requires medication for social interaction SOCIAL INTERACTION - SCORE: 6-SUSANA PROBLEM SOLVING: PROBLEM SOLVING - STEP 1: Does the patient need help from a person or device, or need extra time to solve complex problems such as managing a checking account or confronting interpersonal problems? No. PROBLEM SOLVING - STEP 2: Does the patient require extra time to make decisions or solve problems, OR does s/he have slight dif ficulty reading, initiating, or self-correcting in unfamiliar situations? No. PROBLEM SOLVING - SCORE: 7-IND MEMORY: MEMORY - STEP 1: Does the patient need help from a person or device, or need extra time to remember frequently encount ered people, daily routines, and executing requests? No. MEMORY - STEP 2: Does the patient have slight difficulty recognizing frequently encountered people, daily routines, or executing requests without the need for repetition or using self-initiated or environmental cues to remember? No. MEMORY - SCORE: 7-IND SIGNATURE PANEL: The following modified sections: Eating - Score, Grooming - Score, Bathing - Score, Dressing - Upper Body - Score, Dressing - Lower Body - Score, Toileting - Score, Bladder Management - Score, Bowel Man agement - Score, Transfers: Bed, Chair, Wheelchair - Score, Transfers: Toilet - Score, Transfers: Rubi wer - Score, Transfers: Tub - Score, Locomotion: Walk - Score, Locomotion: Wheelchair - Score, Compre hension - Score, Expression - Score, Social Interaction - Score, Problem Solving - Score, Memory - Sc ore were [electronically] signed by Jody Lee CNA on MonJul 29 2018 03:32:53 T-0500 ([facility] Time)
[2018-07-29] MEDS: LEVOTHYROXINE SOD 0.075 MG TAB PO SCH (07:07)
[2018-07-29] MEDS: PANTOPRAZOLE 40MG TABLET PO SCH (07:08)
[2018-07-29] MEDS: LIDOCAINE 5% PATCH TOP SCH (07:08)
[2018-07-29] MEDS: CRANBERRY FRUIT EXTRACT 200 MG CAP PO SCH ×2 (08:12→19:17)
[2018-07-29] MEDS: VENLAFAXINE HCL XR 75 MG CAP PO SCH (08:12)
[2018-07-29] MEDS: GABAPENTIN 300 MG CAP PO SCH ×2 (08:13→19:16)
[2018-07-29] MEDS: SOLIFENACIN SUCCIN 5 MG TAB PO SCH (08:13)
[2018-07-29] MEDS: DULOXETINE 20 MG CAP PO SCH (08:13)
[2018-07-29] MEDS: RIVAROXABAN 15 MG TABLET PO SCH (08:13)
[2018-07-29] MEDS: MAGNESIUM OXIDE 400 MG TAB PO SCH ×2 (08:13→19:17)
[2018-07-29] MEDS: FE SULF/FA/VIT B COMP & C TAB PO SCH (08:13)
[2018-07-29] MEDS: BACLOFEN 10 MG TAB PO SCH ×2 (08:13→19:17)
[2018-07-29] MEDS: FERROUS SULFATE 325 MG TAB PO SCH (08:14)
[2018-07-29] MEDS: AMLODIPINE 5 MG TAB PO SCH (08:14)
[2018-07-29] MEDS: hydroCHLOROthiazide 25 MG TAB PO SCH (08:14)
[2018-07-29] MEDS: LISINOPRIL 20 MG TAB PO SCH (08:15)
[2018-07-29] MEDS: PROMOD 30 ML DOSE PO SCH ×2 (08:16→19:18)
[2018-07-29] MEDS: NYSTATIN PWDR 100000 UNIT/GM TOP SCH ×2 (10:10→19:17)
--- NOTE | 2018-07-29 10:48 | FAST ---
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 Rambo De La Rosa M.D. ADMISSION DIAGNOSIS: - Orthopaedic Disorders 08 - Unilateral Hip Fracture (08.11) Left Hip Fracture. EATING: EATING - STEP 1: Does the patient require the assistance of a person or device, or need extra time when eating? Yes. EATING - STEP 2: Does the patient require the assistance of a helper? No, patient only requires an assistive device, O R s/he takes more than reasonable time to eat, OR there is a safety concern, OR s/he requires modifie d food consistency EATING - SCORE: 6-SUSANA GROOMING: Comb/brush hair Oral care GROOMING - STEP 1: Does the patient require the assistance of a person or device, or need extra time when grooming? Yes. GROOMING - STEP 2: Does the patient require the assistance of a helper? No. The patient only requires an assistive devic e, OR takes more than reasonable time to groom, OR there is a concern for safety as the patient groom s GROOMING - SCORE: 6-SUSANA BATHING: Activity did not occur on this shift BATHING - SCORE: 0-UNK DRESSING - UPPER BODY: T-shirt/pullover shirt (four steps) ARTICLES SCORE Total number of steps: 4 DRESSING - UPPER BODY - STEP 1: Does the patient require help from a person or device, or need extra time when dressing above the [address]? Yes. DRESSING - UPPER BODY - STEP 2: Does the patient require the assistance of a helper? Yes. DRESSING - UPPER BODY - STEP 3: Does the helper touch the patient while dressing? No. DRESSING - UPPER BODY - SCORE: 5-SUP DRESSING - LOWER BODY: ARTICLES SCORE Total number of steps: 7 DRESSING - LOWER BODY - STEP 1: Does the patient require help from a person or device, or need extra time when dressing below the [address] st? Yes. DRESSING - LOWER BODY - STEP 2: Does the patient require the assistance of a helper? Yes. DRESSING - LOWER BODY - STEP 3: Does the helper touch the patient while dressing? Yes. DRESSING - LOWER BODY - STEP 4: How many of the total steps does the patient complete on his/her own? 4 DRESSING - LOWER BODY - SCORE: 3-MOD TOILETING: TOILETING - STEP 1: Does the patient require the assistance of a person or device, or need extra time with toileting? Yes . TOILETING - STEP 2: Does the patient require the assistance of a helper? Yes. TOILETING - STEP 3: How much assistance does the patient require from the helper? Hands-on assistance from the helper TOILETING - STEP 4: Of the 3 tasks: 1) Adjusting clothing prior to use, 2) Cleansing of perineal area, 3) Adjusting clot penny after use; How many tasks does the patient perform WITHOUT assistance of the helper? Three tasks with steadying assistance from the helper TOILETING - SCORE: 4-MIN BLADDER MANAGEMENT: BLADDER MANAGEMENT - STEP 1: Does the patient control the bladder completely and intentionally without equipment or devices or med ications, and is always continent? No. BLADDER MANAGEMENT - STEP 2: Does the patient require the assistance of a helper? No, patient requires and independently uses an a ssistive device, such as a urinal, bedpan, bedside commode, catheter, absorbent pad, or collecting de vice BLADDER MANAGEMENT - SCORE: 6-SUSANA BLADDER MANAGEMENT - FREQUENCY OF ACCIDENTS: BLADDER MANAGEMENT(FA) - STEP 1: How many accidents has the patient had during the current shift? 2 BOWEL MANAGEMENT: Activity did not occur on this shift BOWEL MANAGEMENT - SCORE: 7-IND TRANSFERS: BED, CHAIR, WHEELCHAIR: TRANSFERS: BED, CHAIR, WHEELCHAIR - STEP 1: Does the patient require assistance of a person or device, or need extra time with bed, chair, or whe elchair transfers? Yes. TRANSFERS: BED, CHAIR, WHEELCHAIR - STEP 2: Does the patient require the assistance of a helper? Yes. TRANSFERS: BED, CHAIR, WHEELCHAIR - STEP 3: How much assistance does the patient require from the helper? Steadying/guiding assistance TRANSFERS: BED, CHAIR, WHEELCHAIR - SCORE: 4-MIN TRANSFERS: TOILET: TRANSFERS: TOILET - STEP 1: Does the patient require the assistance of a person or device, or need extra time with toilet transfe rs? Yes. TRANSFERS: TOILET - STEP 2: Does the patient require the assistance of a helper? Yes. TRANSFERS: TOILET - STEP 3: How much assistance does the patient require from the helper? Patient performs half or more of the tr ansferring tasks TRANSFERS: TOILET - STEP 4: Does the patient need only incidental help such as contact guard or steadying during toilet transfer? Yes. TRANSFERS: TOILET - SCORE: 4-MIN TRANSFERS: SHOWER: Activity did not occur on this shift TRANSFERS: SHOWER - SCORE: 0-UNK TRANSFERS: TUB: Activity did not occur on this shift TRANSFERS: TUB - SCORE: 0-UNK LOCOMOTION: WALK: Activity did not occur on this shift LOCOMOTION: WALK - SCORE: 0-UNK LOCOMOTION: WHEELCHAIR: Activity did not occur on this shift LOCOMOTION: WHEELCHAIR - SCORE: 0-UNK COMPREHENSION: COMPREHENSION: TYPE: Both COMPREHENSION - STEP 1: Does the patient require help from a person or device, or need extra time to understand complex and a bstract ideas (such as current events, finances, discharge planning, medical issues, relationships, e tc)? No. COMPREHENSION - STEP 2: Does the patient need extra time, require an assistive device (such as glasses for visual comprehensi on or a hearing aid for auditory comprehension) or does s/he have mild difficulty understanding compl ex and abstract information? Yes. COMPREHENSION - SCORE: 6-SUSANA EXPRESSION EXPRESSION: TYPE: Both EXPRESSION - STEP 1: Does the patient require help from a person or device, or need extra time expressing complex and abst ract ideas (such as current events, finances, discharge planning, medical issues, relationships, etc) ? No. EXPRESSION - STEP 2: Does the patient need extra time, require an assistive device (such as augmentive communication syste m or a communication board), OR does s/he have mild difficulty expressing complex and abstract ideas (including mild dysarthria or mild word-find problems)? Yes. EXPRESSION - SCORE: 6-SUSANA SOCIAL INTERACTION: SOCIAL INTERACTION - STEP 1: Does the patient require a helper to interact with others in social and therapeutic situations? No. SOCIAL INTERACTION - STEP 2: Does the patient need extra time in social situations, OR does s/he interact with staff, other patien ts, and family members ONLY in structured environments, OR does s/he require medication for social in teraction? Yes, patient needs extra time SOCIAL INTERACTION - SCORE: 6-SUSANA PROBLEM SOLVING: PROBLEM SOLVING - STEP 1: Does the patient need help from a person or device, or need extra time to solve complex problems such as managing a checking account or confronting interpersonal problems? No. PROBLEM SOLVING - STEP 2: Does the patient require extra time to make decisions or solve problems, OR does s/he have slight dif ficulty reading, initiating, or self-correcting in unfamiliar situations? Yes, patient needs extra ti me. PROBLEM SOLVING - SCORE: 6-SUSANA MEMORY: MEMORY - STEP 1: Does the patient need help from a person or device, or need extra time to remember frequently encount ered people, daily routines, and executing requests? No. MEMORY - STEP 2: Does the patient have slight difficulty recognizing frequently encountered people, daily routines, or executing requests without the need for repetition or using self-initiated or environmental cues to remember? Yes. MEMORY - SCORE: 6-SUSANA SIGNATURE PANEL: The following modified sections: Eating - Score, Grooming - Score, Bathing - Score, Dressing - Upper Body - Score, Dressing - Lower Body - Score, Toileting - Score, Bladder Management - Score, Bowel Man agement - Score, Transfers: Bed, Chair, Wheelchair - Score, Transfers: Toilet - Score, Transfers: Rubi wer - Score, Transfers: Tub - Score, Locomotion: Walk - Score, Locomotion: Wheelchair - Score, Compre hension - Score, Expression - Score, Social Interaction - Score, Problem Solving - Score, Memory - Sc ore were [electronically] signed by Julio Marin on MonJul 29 2018 10:47:24 GMT-0500 (Central Daylight Time)
[2018-07-29] MEDS: PRAMIPEXOLE 1 MG TAB PO SCH (20:14)
[2018-07-29] MEDS: DOCUSATE NA/SENNA CONC 1 TAB PO SCH (20:14)
[2018-07-29] MEDS: LORAZEPAM 0.5 MG TABLET PO PRN (20:14)
--- NOTE | 2018-07-30 01:51 | FAST ---
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 Rambo De La Rosa M.D. ADMISSION DIAGNOSIS: - Orthopaedic Disorders 08 - Unilateral Hip Fracture (08.11) Left Hip Fracture. EATING: Activity did not occur on this shift EATING - SCORE: 0-UNK GROOMING: Activity did not occur on this shift GROOMING - SCORE: 0-UNK BATHING: Activity did not occur on this shift BATHING - SCORE: 0-UNK DRESSING - UPPER BODY: Patient is not dressing in public clothing ARTICLES SCORE Total number of steps: 0 DRESSING - UPPER BODY - SCORE: 0-UNK DRESSING - LOWER BODY: Patient is not dressing in public clothing ARTICLES SCORE Total number of steps: 0 DRESSING - LOWER BODY - SCORE: 0-UNK TOILETING: TOILETING - STEP 1: Does the patient require the assistance of a person or device, or need extra time with toileting? Yes . TOILETING - STEP 2: Does the patient require the assistance of a helper? Yes. TOILETING - STEP 3: How much assistance does the patient require from the helper? Hands-on assistance from the helper TOILETING - STEP 4: Of the 3 tasks: 1) Adjusting clothing prior to use, 2) Cleansing of perineal area, 3) Adjusting clot penny after use; How many tasks does the patient perform WITHOUT assistance of the helper? Three tasks with steadying assistance from the helper TOILETING - SCORE: 4-MIN BLADDER MANAGEMENT: [place] removes incontinent device (Depends, pull ups, etc.); cleans the patient after accident / inco ntinent episode; and, applies new incontinent device. BLADDER MANAGEMENT - SCORE: 1-DEP BOWEL MANAGEMENT: Activity did not occur on this shift BOWEL MANAGEMENT - SCORE: 7-IND TRANSFERS: BED, CHAIR, WHEELCHAIR: TRANSFERS: BED, CHAIR, WHEELCHAIR - STEP 1: Does the patient require assistance of a person or device, or need extra time with bed, chair, or whe elchair transfers? Yes. TRANSFERS: BED, CHAIR, WHEELCHAIR - STEP 2: Does the patient require the assistance of a helper? Yes. TRANSFERS: BED, CHAIR, WHEELCHAIR - STEP 3: How much assistance does the patient require from the helper? Lifting of the legs TRANSFERS: BED, CHAIR, WHEELCHAIR - STEP 4: How many legs does the patient require the helper to lift? both legs TRANSFERS: BED, CHAIR, WHEELCHAIR - SCORE: 3-MOD TRANSFERS: TOILET: TRANSFERS: TOILET - STEP 1: Does the patient require the assistance of a person or device, or need extra time with toilet transfe rs? Yes. TRANSFERS: TOILET - STEP 2: Does the patient require the assistance of a helper? Yes. TRANSFERS: TOILET - STEP 3: How much assistance does the patient require from the helper? Patient performs half or more of the tr ansferring tasks TRANSFERS: TOILET - STEP 4: Does the patient need only incidental help such as contact guard or steadying during toilet transfer? Yes. TRANSFERS: TOILET - SCORE: 4-MIN TRANSFERS: SHOWER: Activity did not occur on this shift TRANSFERS: SHOWER - SCORE: 0-UNK TRANSFERS: TUB: Activity did not occur on this shift TRANSFERS: TUB - SCORE: 0-UNK LOCOMOTION: WALK: Activity did not occur on this shift LOCOMOTION: WALK - SCORE: 0-UNK LOCOMOTION: WHEELCHAIR: Activity did not occur on this shift LOCOMOTION: WHEELCHAIR - SCORE: 0-UNK COMPREHENSION: COMPREHENSION: TYPE: Both COMPREHENSION - STEP 1: Does the patient require help from a person or device, or need extra time to understand complex and a bstract ideas (such as current events, finances, discharge planning, medical issues, relationships, e tc)? No. COMPREHENSION - STEP 2: Does the patient need extra time, require an assistive device (such as glasses for visual comprehensi on or a hearing aid for auditory comprehension) or does s/he have mild difficulty understanding compl ex and abstract information? Yes. COMPREHENSION - SCORE: 6-SUSANA EXPRESSION EXPRESSION: TYPE: Both EXPRESSION - STEP 1: Does the patient require help from a person or device, or need extra time expressing complex and abst ract ideas (such as current events, finances, discharge planning, medical issues, relationships, etc) ? No. EXPRESSION - STEP 2: Does the patient need extra time, require an assistive device (such as augmentive communication syste m or a communication board), OR does s/he have mild difficulty expressing complex and abstract ideas (including mild dysarthria or mild word-find problems)? No. EXPRESSION - SCORE: 7-IND SOCIAL INTERACTION: SOCIAL INTERACTION - STEP 1: Does the patient require a helper to interact with others in social and therapeutic situations? No. SOCIAL INTERACTION - STEP 2: Does the patient need extra time in social situations, OR does s/he interact with staff, other patien ts, and family members ONLY in structured environments, OR does s/he require medication for social in teraction? Yes, patient requires medication for social interaction SOCIAL INTERACTION - SCORE: 6-SUSANA PROBLEM SOLVING: PROBLEM SOLVING - STEP 1: Does the patient need help from a person or device, or need extra time to solve complex problems such as managing a checking account or confronting interpersonal problems? No. PROBLEM SOLVING - STEP 2: Does the patient require extra time to make decisions or solve problems, OR does s/he have slight dif ficulty reading, initiating, or self-correcting in unfamiliar situations? No. PROBLEM SOLVING - SCORE: 7-IND MEMORY: MEMORY - STEP 1: Does the patient need help from a person or device, or need extra time to remember frequently encount ered people, daily routines, and executing requests? No. MEMORY - STEP 2: Does the patient have slight difficulty recognizing frequently encountered people, daily routines, or executing requests without the need for repetition or using self-initiated or environmental cues to remember? No. MEMORY - SCORE: 7-IND SIGNATURE PANEL: The following modified sections: Eating - Score, Grooming - Score, Bathing - Score, Dressing - Upper Body - Score, Dressing - Lower Body - Score, Toileting - Score, Bladder Management - Score, Bowel Man agement - Score, Transfers: Bed, Chair, Wheelchair - Score, Transfers: Toilet - Score, Transfers: Rubi wer - Score, Transfers: Tub - Score, Locomotion: Walk - Score, Locomotion: Wheelchair - Score, Compre hension - Score, Expression - Score, Social Interaction - Score, Problem Solving - Score, Memory - Sc ore were [electronically] signed by Jody Lee CNA on MonJul 30 2018 01:51:08 T-0500 ([facility] Time)
[2018-07-30] MEDS: PANTOPRAZOLE 40MG TABLET PO SCH (06:35)
[2018-07-30] MEDS: LEVOTHYROXINE SOD 0.075 MG TAB PO SCH (06:35)
[2018-07-30] MEDS: NYSTATIN PWDR 100000 UNIT/GM TOP SCH ×2 (08:00→20:03)
[2018-07-30] MEDS: PROMOD 30 ML DOSE PO SCH ×2 (08:00→20:03)
[2018-07-30] MEDS: LIDOCAINE 5% PATCH TOP SCH (08:08)
[2018-07-30] MEDS: hydroCHLOROthiazide 25 MG TAB PO SCH (08:09)
[2018-07-30] MEDS: FE SULF/FA/VIT B COMP & C TAB PO SCH (08:09)
[2018-07-30] MEDS: FERROUS SULFATE 325 MG TAB PO SCH (08:09)
[2018-07-30] MEDS: BACLOFEN 10 MG TAB PO SCH ×2 (08:09→20:02)
[2018-07-30] MEDS: LISINOPRIL 20 MG TAB PO SCH (08:09)
[2018-07-30] MEDS: VENLAFAXINE HCL XR 75 MG CAP PO SCH (08:09)
[2018-07-30] MEDS: CRANBERRY FRUIT EXTRACT 200 MG CAP PO SCH ×2 (08:09→20:02)
[2018-07-30] MEDS: RIVAROXABAN 15 MG TABLET PO SCH (08:09)
[2018-07-30] MEDS: AMLODIPINE 5 MG TAB PO SCH (08:10)
[2018-07-30] MEDS: MAGNESIUM OXIDE 400 MG TAB PO SCH ×2 (08:10→20:02)
[2018-07-30] MEDS: GABAPENTIN 300 MG CAP PO SCH ×2 (08:10→20:02)
[2018-07-30] MEDS: SOLIFENACIN SUCCIN 5 MG TAB PO SCH (08:10)
[2018-07-30] MEDS: TRAMADOL HCL 50 MG TAB PO PRN ×2 (08:10→11:45)
[2018-07-30] MEDS: DULOXETINE 20 MG CAP PO SCH (08:10)
--- NOTE | 2018-07-30 14:40 | FAST ---
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 Rambo De La Rosa M.D. ADMISSION DIAGNOSIS: - Orthopaedic Disorders 08 - Unilateral Hip Fracture (08.11) Left Hip Fracture. EATING: EATING - STEP 1: Does the patient require the assistance of a person or device, or need extra time when eating? Yes. EATING - STEP 2: Does the patient require the assistance of a helper? No, patient only requires an assistive device, O R s/he takes more than reasonable time to eat, OR there is a safety concern, OR s/he requires modifie d food consistency EATING - SCORE: 6-SUSANA GROOMING: Comb/brush hair Oral care Wash, rinse, and dry face Wash, rinse, and dry hands GROOMING - STEP 1: Does the patient require the assistance of a person or device, or need extra time when grooming? Yes. GROOMING - STEP 2: Does the patient require the assistance of a helper? No. The patient only requires an assistive devic e, OR takes more than reasonable time to groom, OR there is a concern for safety as the patient groom s GROOMING - SCORE: 6-SUSANA BATHING: Activity did not occur on this shift BATHING - SCORE: 0-UNK DRESSING - UPPER BODY: T-shirt/pullover shirt (four steps) ARTICLES SCORE Total number of steps: 4 DRESSING - UPPER BODY - STEP 1: Does the patient require help from a person or device, or need extra time when dressing above the ro[address] st? Yes. DRESSING - UPPER BODY - STEP 2: Does the patient require the assistance of a helper? Yes. DRESSING - UPPER BODY - STEP 3: Does the helper touch the patient while dressing? No. DRESSING - UPPER BODY - SCORE: 5-SUP DRESSING - LOWER BODY: Slip-on shoe - Left foot (one step) Slip-on shoe - Right foot (one step) Underwear (three steps) ARTICLES SCORE Total number of steps: 5 DRESSING - LOWER BODY - STEP 1: Does the patient require help from a person or device, or need extra time when dressing below the [address] st? Yes. DRESSING - LOWER BODY - STEP 2: Does the patient require the assistance of a helper? Yes. DRESSING - LOWER BODY - STEP 3: Does the helper touch the patient while dressing? Yes. DRESSING - LOWER BODY - STEP 4: How many of the total steps does the patient complete on his/her own? 4 DRESSING - LOWER BODY - SCORE: 4-MIN TOILETING: TOILETING - STEP 1: Does the patient require the assistance of a person or device, or need extra time with toileting? Yes . TOILETING - STEP 2: Does the patient require the assistance of a helper? Yes. TOILETING - STEP 3: How much assistance does the patient require from the helper? Hands-on assistance from the helper TOILETING - STEP 4: Of the 3 tasks: 1) Adjusting clothing prior to use, 2) Cleansing of perineal area, 3) Adjusting clot penny after use; How many tasks does the patient perform WITHOUT assistance of the helper? Three tasks with steadying assistance from the helper TOILETING - SCORE: 4-MIN BLADDER MANAGEMENT: BLADDER MANAGEMENT - STEP 1: Does the patient control the bladder completely and intentionally without equipment or devices or med ications, and is always continent? No. BLADDER MANAGEMENT - STEP 2: Does the patient require the assistance of a helper? No, patient requires and independently uses an a ssistive device, such as a urinal, bedpan, bedside commode, catheter, absorbent pad, or collecting de vice BLADDER MANAGEMENT - SCORE: 6-SUSANA BLADDER MANAGEMENT - FREQUENCY OF ACCIDENTS: BLADDER MANAGEMENT(FA) - STEP 1: How many accidents has the patient had during the current shift? 1 BOWEL MANAGEMENT: Activity did not occur on this shift BOWEL MANAGEMENT - SCORE: 7-IND BOWEL MANAGEMENT - FREQUENCY OF ACCIDENTS: BOWEL MANAGEMENT(FA) - STEP 1: How many accidents has the patient had during the current shift? 0 TRANSFERS: BED, CHAIR, WHEELCHAIR: TRANSFERS: BED, CHAIR, WHEELCHAIR - STEP 1: Does the patient require assistance of a person or device, or need extra time with bed, chair, or whe elchair transfers? Yes. TRANSFERS: BED, CHAIR, WHEELCHAIR - STEP 2: Does the patient require the assistance of a helper? Yes. TRANSFERS: BED, CHAIR, WHEELCHAIR - STEP 3: How much assistance does the patient require from the helper? Steadying/guiding assistance TRANSFERS: BED, CHAIR, WHEELCHAIR - SCORE: 4-MIN TRANSFERS: TOILET: TRANSFERS: TOILET - STEP 1: Does the patient require the assistance of a person or device, or need extra time with toilet transfe rs? Yes. TRANSFERS: TOILET - STEP 2: Does the patient require the assistance of a helper? Yes. TRANSFERS: TOILET - STEP 3: How much assistance does the patient require from the helper? Patient performs half or more of the tr ansferring tasks TRANSFERS: TOILET - STEP 4: Does the patient need only incidental help such as contact guard or steadying during toilet transfer? Yes. TRANSFERS: TOILET - SCORE: 4-MIN TRANSFERS: SHOWER: Activity did not occur on this shift TRANSFERS: SHOWER - SCORE: 0-UNK TRANSFERS: TUB: Activity did not occur on this shift TRANSFERS: TUB - SCORE: 0-UNK LOCOMOTION: WALK: Activity did not occur on this shift LOCOMOTION: WALK - SCORE: 0-UNK LOCOMOTION: WHEELCHAIR: LOCOMOTION: WHEELCHAIR - STEP 1: Does the patient need help to go 150 feet in a wheelchair? Yes. LOCOMOTION: WHEELCHAIR - STEP 2: How much assistance does the patient need from the helper? Only supervision, cuing, or coaxing LOCOMOTION: WHEELCHAIR - SCORE: 5-SUP COMPREHENSION: COMPREHENSION: TYPE: Both COMPREHENSION - STEP 1: Does the patient require help from a person or device, or need extra time to understand complex and a bstract ideas (such as current events, finances, discharge planning, medical issues, relationships, e tc)? No. COMPREHENSION - STEP 2: Does the patient need extra time, require an assistive device (such as glasses for visual comprehensi on or a hearing aid for auditory comprehension) or does s/he have mild difficulty understanding compl ex and abstract information? Yes. COMPREHENSION - SCORE: 6-SUSANA EXPRESSION EXPRESSION: TYPE: Both EXPRESSION - STEP 1: Does the patient require help from a person or device, or need extra time expressing complex and abst ract ideas (such as current events, finances, discharge planning, medical issues, relationships, etc) ? No. EXPRESSION - STEP 2: Does the patient need extra time, require an assistive device (such as augmentive communication syste m or a communication board), OR does s/he have mild difficulty expressing complex and abstract ideas (including mild dysarthria or mild word-find problems)? Yes. EXPRESSION - SCORE: 6-SUSANA SOCIAL INTERACTION: SOCIAL INTERACTION - STEP 1: Does the patient require a helper to interact with others in social and therapeutic situations? No. SOCIAL INTERACTION - STEP 2: Does the patient need extra time in social situations, OR does s/he interact with staff, other patien ts, and family members ONLY in structured environments, OR does s/he require medication for social in teraction? Yes, patient needs extra time SOCIAL INTERACTION - SCORE: 6-SUSANA PROBLEM SOLVING: PROBLEM SOLVING - STEP 1: Does the patient need help from a person or device, or need extra time to solve complex problems such as managing a checking account or confronting interpersonal problems? No. PROBLEM SOLVING - STEP 2: Does the patient require extra time to make decisions or solve problems, OR does s/he have slight dif ficulty reading, initiating, or self-correcting in unfamiliar situations? Yes, patient needs extra ti me. PROBLEM SOLVING - SCORE: 6-SUSANA MEMORY: MEMORY - STEP 1: Does the patient need help from a person or device, or need extra time to remember frequently encount ered people, daily routines, and executing requests? No. MEMORY - STEP 2: Does the patient have slight difficulty recognizing frequently encountered people, daily routines, or executing requests without the need for repetition or using self-initiated or environmental cues to remember? Yes. MEMORY - SCORE: 6-SUSANA SIGNATURE PANEL: The following modified sections: Eating - Score, Grooming - Score, Bathing - Score, Dressing - Upper Body - Score, Dressing - Lower Body - Score, Toileting - Score, Bladder Management - Score, Bowel Man agement - Score, Transfers: Bed, Chair, Wheelchair - Score, Transfers: Toilet - Score, Transfers: Rubi wer - Score, Transfers: Tub - Score, Locomotion: Walk - Score, Locomotion: Wheelchair - Score, Compre hension - Score, Expression - Score, Social Interaction - Score, Problem Solving - Score, Memory - Sc ore were [electronically] signed by Lillian Colby C.N.A. on MonJul 30 2018 14:39:01 [facility]-0500 ([place] Daylight Time)
--- NOTE | 2018-07-30 16:22 | FAST ---
ENCOUNTER DATE AND TIME: 07/30/2018 08:00 (CDT) NAME LINH SANDS DATE OF : 1935 DATE OF ADMISSION: 07/09/2018 17:51 (CHANGE MANAGEMENT LEAD) PHONE: AGE: 83 SSN# [id number] GENDER: Female ENCOUNTER PHYSICIAN: Dr. Rambo De La Rosa M.D. ADMISSION DIAGNOSIS: - Orthopaedic Disorders 08 - Unilateral Hip Fracture (08.11) Left Hip Fracture. EATING: Activity did not occur on this shift EATING - SCORE: 0-UNK GROOMING: Activity did not occur on this shift GROOMING - SCORE: 0-UNK BATHING: Activity did not occur on this shift BATHING - SCORE: 0-UNK DRESSING - UPPER BODY: Activity did not occur on this shift Patient is not dressing in public clothing ARTICLES SCORE Total number of steps: 0 DRESSING - UPPER BODY - SCORE: 0-UNK DRESSING - LOWER BODY: Activity did not occur on this shift Patient is not dressing in public clothing ARTICLES SCORE Total number of steps: 0 DRESSING - LOWER BODY - SCORE: 0-UNK TOILETING: Activity did not occur on this shift TOILETING - SCORE: 0-UNK BLADDER MANAGEMENT: Activity did not occur on this shift BLADDER MANAGEMENT - SCORE: 7-IND BOWEL MANAGEMENT: Activity did not occur on this shift BOWEL MANAGEMENT - SCORE: 7-IND TRANSFERS: BED, CHAIR, WHEELCHAIR: TRANSFERS: BED, CHAIR, WHEELCHAIR - STEP 1: Does the patient require assistance of a person or device, or need extra time with bed, chair, or whe elchair transfers? Yes. TRANSFERS: BED, CHAIR, WHEELCHAIR - STEP 2: Does the patient require the assistance of a helper? Yes. TRANSFERS: BED, CHAIR, WHEELCHAIR - STEP 3: How much assistance does the patient require from the helper? Only supervision TRANSFERS: BED, CHAIR, WHEELCHAIR - SCORE: 5-SUP TRANSFERS: TOILET: Activity did not occur on this shift TRANSFERS: TOILET - SCORE: 0-UNK TRANSFERS: SHOWER: Activity did not occur on this shift TRANSFERS: SHOWER - SCORE: 0-UNK TRANSFERS: TUB: Activity did not occur on this shift TRANSFERS: TUB - SCORE: 0-UNK LOCOMOTION: WALK: LOCOMOTION: WALK - STEP 1: Does the patient need help from a person or device, or need extra time to walk 150 feet? Yes. LOCOMOTION: WALK - STEP 2: How much assistance does the patient require to walk a minimum of 150 feet? Only supervision, cuing, or coaxing LOCOMOTION: WALK - SCORE: 5-SUP LOCOMOTION: WHEELCHAIR: LOCOMOTION: WHEELCHAIR - STEP 1: Does the patient need help to go 150 feet in a wheelchair? Yes. LOCOMOTION: WHEELCHAIR - STEP 2: How much assistance does the patient need from the helper? Only supervision, cuing, or coaxing LOCOMOTION: WHEELCHAIR - SCORE: 5-SUP LOCOMOTION: STAIRS: Activity did not occur on this shift LOCOMOTION: STAIRS - SCORE: 0-UNK COMPREHENSION: COMPREHENSION - SCORE: 0-UNK EXPRESSION EXPRESSION - SCORE: 0-UNK SOCIAL INTERACTION: SOCIAL INTERACTION - SCORE: 0-UNK PROBLEM SOLVING: PROBLEM SOLVING - SCORE: 0-UNK MEMORY: MEMORY - SCORE: 0-UNK SIGNATURE PANEL: The following modified sections: Transfers: Bed, Chair, Wheelchair - Score, Transfers: Toilet - Score , Locomotion: Walk - Score, Locomotion: Wheelchair - Score, Locomotion: Stairs - Score were [[email or web address] [email or web address]] signed by Giselle Spencer PTA on MonJul 30 2018 16:22:24 T-0500 (Central Daylight Time)
--- NOTE | 2018-07-30 17:33 | R.PN ---
ENCOUNTER DATE AND TIME: 07/30/2018 17:30 (CDT) NAME LINH SANDS DATE OF : 1935 DATE OF ADMISSION: 07/09/2018 17:51 (REHAB NURSING TECH) Left Hip FractureCHIEF COMPLAINT: Left hip fracture SUBJECTIVE: Pt denied any depression. Pt denied any Shortness of Breath. Labs reviewed. Hgb 11.7, prealbumin 17.4, [id number]. Ambulated 350' with standby assistance using a rolling walker. Self-propelled wheelchair 200' with mo dified independence. Up and down 3 steps with standby assistance. Using tylenol and tramadol for pain relief. VITAL SIGNS Temperature: 97.9 F SBP/DBP: 139/64 Pulse: 70 Resp: 14 MEDICATION ALLERGIES: Codeine ENVIRONMENTAL ALLERGIES: None Known - Substance Allergies None Known - Other Allergies None Known NURSING: - Shower allowing shower - Skin care per protocol PRECAUTIONS: - Posterior Hip Precaution No adduction across midline No external rotation No hip flexion >90 degrees No internal rotation No wheel chair propulsion - Weight Bearing Precaution WBAT left LE ACTIVITIES OOB only with supervision THERAPIES: - Occupational Therapy Evaluate and Treat. - Physical Therapy Evaluate and Treat. PHYSICAL EXAM - Gen Alert and awake Lying in bed No apparent distress Oriented to: person, time, and place - Skin No breakdown No abnormalities - Eyes No abnormalities - ENMT No abnormalities - Neck No abnormalities - CVS RRR - Chest No abnormalities - Resp Clear to auscultation - Abd +bowel sounds - GI Soft Deferred - No abnormalities - Ext Left hip surgical site has good hemostasis. - MSK 4+/5 weakness in left lower extremity - Neuro 4/5 strength left lower extremity. - Psych No abnormalities ASSESSMENT: Pt. is a 83 yo Right-handed white female.On 06/29/2018 she was admitted to [facility] with francesca gnosis Left Hip Fracture.Her impairment category is Orthopaedic Disorders 08 - Unilateral Hip Fractu re (.11).Pre-morbidly, Pt. was independent/mod-I in Self-Care, Sphincter Control, Transfers Control , Communication, Social Cognition, and Locomotion; and she had good Sphincter Control.Currently, she has deficits of Self-Care, Transfers Control, Endurance, Balance, Safety Awareness, and Locomotion.Pt . is now referred to [facility] for acute in-patient rehabilitation in order t o maximize patient's functional independence in activities of daily living, strength, ROM, and mobili ty.- Rehab Goal Patient has realistic goal of being discharged at assistance level 6-Radha to reside at Home with Fam wilmer/Relatives. MDM/PLAN: - Physical Therapy Decreased range of motion - to improve, our physical therapists will perform initial evaluation of p t's status upon admission and devise an individualized program for increasing patient's Range of Gianni on. Gait dysfunction - to improve, our physical therapists will perform initial evaluation of pt's statu s upon admission and devise an individualized program for Gait Training, and Wheel Chair mobility Inability to transfer - to improve, our physical therapists will perform initial evaluation of pt's status upon admission and devise an individualized program for Bed mobility Need for home safety evaluation - to improve, our physical therapists will perform initial evaluatio n of pt's status upon admission and devise an individualized program for Home Evaluation Need in caregiver upon discharge - to improve, our physical therapists will perform initial evaluati on of pt's status upon admission and devise an individualized program for Caregiver Training New precaution - to improve, our physical therapists will perform initial evaluation of pt's status upon admission and devise an individualized program for Patient precaution education Poor balance - to improve, our physical therapists will perform initial evaluation of pt's status up on admission and devise an individualized program for Balance Training Poor endurance - to improve, our physical therapists will perform initial evaluation of pt's status upon admission and devise an individualized program for Endurance Training Weakness - to improve, our physical therapists will perform initial evaluation of pt's status upon a dmission and devise an individualized program for Aquatic Therapy, Neuromuscular Reeducation, and Str engthening Achieving independence - to improve, our physical therapists will perform initial evaluation of pt's status upon admission and devise an individualized program for Community Reintegration Activities - Occupational Therapy ADL deficits - to improve, our occupation therapists will perform initial evaluation of pt's status upon admission and devise an individualized program for Bathing, Bed mobility, Community Reintegratio n, Cooking, Dressing, Eating, Fine Motor Skills, Grooming, Homemaking, Kitchen Mobility, Laundry, Pat ient Education, Safety Awareness, Splinting - Positioning, Transfers(Toilet, Tub, Shower), and Wheel Chair Management Need for managed care analyst - to improve, our occupation therapists will perform initial evaluation of pt's status upon admission and devise an individualized program for Caregiver Training Weakness - to improve, our occupation therapists will perform initial evaluation of pt's status upon admission and devise an individualized program for Aquatic Therapy, Balance, Endurance, UE ROM, and UE strengthening - Anterior Hip Precaution No abduction No active extension No adduction across midline No external rotation No hip flexion >90 degrees No internal rotation - Diet - Liquid Texture Continue Regular - Tube Feed Continue N/A - Diet Type Continue Regular - Posterior Hip Precaution No adduction across midline No external rotation No hip flexion >90 degrees No internal rotation No wheel chair propulsion - Weight Bearing Precaution WBAT left LE - Skin care per protocol - Diet - Solid Texture Continue Regular - Shower allowing shower FUNCTIONAL STATUS: UPDATED AT WEEKLY TEAM CONFERENCE - Bladder Same accident frequency: 7-Ind - No accidents in the past 7 days - Bowel Same accident frequency: 7-Ind - No accidents in the past 7 days - Walking Same score based on distance walked: 3(>=150ft) FUNCTIONAL STATUS: - Self-Care A. Eating sup B. Grooming sup C. Bathing modA D. Dressing - Upper Maria Isabel E. Dressing - Lower maxA F. Toileting modA - Sphincter Control G: Bladder control Ind H: Bowel control Ind - Transfers Control I. Bed/Chair/Wheelchair Maria Isabel J. Toilet Maria Isabel K. Tub/Shower modA - Locomotion L. Walk/Wheelchair (B) Maria Isabel M. Stairs ADNO - Communication N. Comprehension (B) Radha O. Expression (B) Radha - Social Cognition P. Social Interaction Radha Q. Problem Solving Radha R. Memory Radha - Endurance Fair - Balance Fair - Safety Awareness Fair CURRENT FUNC. DEFICITS: Self-Care, Transfers Control, Endurance, Balance, Safety Awareness, and Locomotion SIGNATURE PANEL: (CDT)
[2018-07-30] MEDS: ACETAMINOPHEN 500 MG TAB PO PRN (18:25)
[2018-07-30] MEDS: MELATONIN 3 MG TABLET PO PRN (21:12)
[2018-07-30] MEDS: PRAMIPEXOLE 1 MG TAB PO SCH (21:13)
[2018-07-30] MEDS: DOCUSATE NA/SENNA CONC 1 TAB PO SCH (21:13)
[2018-07-31] MEDS: TRAMADOL HCL 50 MG TAB PO PRN ×2 (00:08→07:44)
--- NOTE | 2018-07-31 01:07 | FAST ---
SHIFT START DATE/TIME: 07/30/2018 19:00 (CDT) SHIFT END DATE/TIME: 07/31/2018 07:00 (CDT) NAME LINH SANDS DATE OF : 1935 DATE OF ADMISSION: 07/09/2018 17:51 (MATERIALS MANAGER) PHONE: AGE: 83 SSN# [id number] GENDER: Female ENCOUNTER PHYSICIAN: Dr. Rambo De La Rosa M.D. ADMISSION DIAGNOSIS: - Orthopaedic Disorders 08 - Unilateral Hip Fracture (08.11) Left Hip Fracture. EATING: Activity did not occur on this shift EATING - SCORE: 0-UNK GROOMING: Oral care Wash, rinse, and dry hands GROOMING - STEP 1: Does the patient require the assistance of a person or device, or need extra time when grooming? Yes. GROOMING - STEP 2: Does the patient require the assistance of a helper? Yes. GROOMING - STEP 3: How much assistance does the patient require from the helper? Only prior equipment preparation/set up from the helper GROOMING - SCORE: 5-SUP BATHING: Activity did not occur on this shift BATHING - SCORE: 0-UNK DRESSING - UPPER BODY: Patient is not dressing in public clothing ARTICLES SCORE Total number of steps: 0 DRESSING - UPPER BODY - SCORE: 0-UNK DRESSING - LOWER BODY: Patient is not dressing in public clothing ARTICLES SCORE Total number of steps: 0 DRESSING - LOWER BODY - SCORE: 0-UNK TOILETING: TOILETING - STEP 1: Does the patient require the assistance of a person or device, or need extra time with toileting? Yes . TOILETING - STEP 2: Does the patient require the assistance of a helper? Yes. TOILETING - STEP 3: How much assistance does the patient require from the helper? Hands-on assistance from the helper TOILETING - STEP 4: Of the 3 tasks: 1) Adjusting clothing prior to use, 2) Cleansing of perineal area, 3) Adjusting clot penny after use; How many tasks does the patient perform WITHOUT assistance of the helper? One task TOILETING - SCORE: 2-MAX BLADDER MANAGEMENT: [place] removes incontinent device (Depends, pull ups, etc.); cleans the patient after accident / inco ntinent episode; and, applies new incontinent device. BLADDER MANAGEMENT - SCORE: 1-DEP BOWEL MANAGEMENT: BOWEL MANAGEMENT - STEP 1: Does the patient control bowels completely and intentionally without equipment devices or medications AND is always continent? No. BOWEL MANAGEMENT - STEP 2: Does the patient require the assistance of a helper? No, patient requires medication for control such as stool softeners, suppositories, laxatives, enemas, or OTC medications BOWEL MANAGEMENT - SCORE: 6-SUSANA TRANSFERS: BED, CHAIR, WHEELCHAIR: TRANSFERS: BED, CHAIR, WHEELCHAIR - STEP 1: Does the patient require assistance of a person or device, or need extra time with bed, chair, or whe elchair transfers? Yes. TRANSFERS: BED, CHAIR, WHEELCHAIR - STEP 2: Does the patient require the assistance of a helper? Yes. TRANSFERS: BED, CHAIR, WHEELCHAIR - STEP 3: How much assistance does the patient require from the helper? Lifting of the legs TRANSFERS: BED, CHAIR, WHEELCHAIR - STEP 4: How many legs does the patient require the helper to lift? both legs TRANSFERS: BED, CHAIR, WHEELCHAIR - SCORE: 3-MOD TRANSFERS: TOILET: TRANSFERS: TOILET - STEP 1: Does the patient require the assistance of a person or device, or need extra time with toilet transfe rs? Yes. TRANSFERS: TOILET - STEP 2: Does the patient require the assistance of a helper? Yes. TRANSFERS: TOILET - STEP 3: How much assistance does the patient require from the helper? Patient performs half or more of the tr ansferring tasks TRANSFERS: TOILET - STEP 4: Does the patient need only incidental help such as contact guard or steadying during toilet transfer? Yes. TRANSFERS: TOILET - SCORE: 4-MIN TRANSFERS: SHOWER: Activity did not occur on this shift TRANSFERS: SHOWER - SCORE: 0-UNK TRANSFERS: TUB: Activity did not occur on this shift TRANSFERS: TUB - SCORE: 0-UNK LOCOMOTION: WALK: Activity did not occur on this shift LOCOMOTION: WALK - SCORE: 0-UNK LOCOMOTION: WHEELCHAIR: Activity did not occur on this shift LOCOMOTION: WHEELCHAIR - SCORE: 0-UNK COMPREHENSION: COMPREHENSION: TYPE: Both COMPREHENSION - STEP 1: Does the patient require help from a person or device, or need extra time to understand complex and a bstract ideas (such as current events, finances, discharge planning, medical issues, relationships, e tc)? Yes. COMPREHENSION - STEP 2: Does the patient require help to understand questions or statements about basic needs or ideas (such as hunger, thirst, sleep, safety, daily schedule, room location, or discomfort) half or more of the t meche? No. COMPREHENSION - STEP 3: How often does the patient need help to understand directions and conversation about basic needs? 10% - 24% of the time COMPREHENSION - SCORE: 4-MIN EXPRESSION EXPRESSION: TYPE: Both EXPRESSION - STEP 1: Does the patient require help from a person or device, or need extra time expressing complex and abst ract ideas (such as current events, finances, discharge planning, medical issues, relationships, etc) ? No. EXPRESSION - STEP 2: Does the patient need extra time, require an assistive device (such as augmentive communication syste m or a communication board), OR does s/he have mild difficulty expressing complex and abstract ideas (including mild dysarthria or mild word-find problems)? Yes. EXPRESSION - SCORE: 6-SUSANA SOCIAL INTERACTION: SOCIAL INTERACTION - STEP 1: Does the patient require a helper to interact with others in social and therapeutic situations? No. SOCIAL INTERACTION - STEP 2: Does the patient need extra time in social situations, OR does s/he interact with staff, other patien ts, and family members ONLY in structured environments, OR does s/he require medication for social in teraction? Yes, patient needs extra time SOCIAL INTERACTION - SCORE: 6-SUSANA PROBLEM SOLVING: PROBLEM SOLVING - STEP 1: Does the patient need help from a person or device, or need extra time to solve complex problems such as managing a checking account or confronting interpersonal problems? Yes. PROBLEM SOLVING - STEP 2: Does the patient solve basic routine problems half or more of the time? Yes. PROBLEM SOLVING - STEP 3: How often does the patient need help to solve basic routine problems? 10%-24% of the time PROBLEM SOLVING - SCORE: 4-MIN MEMORY: MEMORY - STEP 1: Does the patient need help from a person or device, or need extra time to remember frequently encount ered people, daily routines, and executing requests? No. MEMORY - STEP 2: Does the patient have slight difficulty recognizing frequently encountered people, daily routines, or executing requests without the need for repetition or using self-initiated or environmental cues to remember? Yes. MEMORY - SCORE: 6-SUSANA SIGNATURE PANEL: The following modified sections: Eating - Score, Grooming - Score, Dressing - Upper Body - Score, Kenny ssing - Lower Body - Score, Toileting - Score, Bladder Management - Score, Bowel Management - Score, Transfers: Bed, Chair, Wheelchair - Score, Transfers: Toilet - Score, Transfers: Shower - Score, Bello sfers: Tub - Score, Locomotion: Walk - Score, Locomotion: Wheelchair - Score, Comprehension - Score, Expression - Score, Social Interaction - Score, Problem Solving - Score, Memory - Score were [electro nically] signed by Viri Pretty CNA on MonJul 31 2018 01:06:13 GMT-0500 (Central Daylight Time)
[2018-07-31] MEDS: ACETAMINOPHEN 500 MG TAB PO PRN ×2 (04:39→11:40)
[2018-07-31] MEDS: LORAZEPAM 0.5 MG TABLET PO PRN (04:53)
[2018-07-31] MEDS: PANTOPRAZOLE 40MG TABLET PO SCH (06:17)
[2018-07-31] MEDS: LEVOTHYROXINE SOD 0.075 MG TAB PO SCH (06:21)
[2018-07-31 07:32] VITALS: BP 149/68; TEMP 97.5
[2018-07-31] MEDS: FERROUS SULFATE 325 MG TAB PO SCH (07:43)
[2018-07-31] MEDS: FE SULF/FA/VIT B COMP & C TAB PO SCH (07:43)
[2018-07-31] MEDS: SOLIFENACIN SUCCIN 5 MG TAB PO SCH (07:43)
[2018-07-31] MEDS: GABAPENTIN 300 MG CAP PO SCH (07:43)
[2018-07-31] MEDS: VENLAFAXINE HCL XR 75 MG CAP PO SCH (07:43)
[2018-07-31] MEDS: AMLODIPINE 5 MG TAB PO SCH (07:44)
[2018-07-31] MEDS: CRANBERRY FRUIT EXTRACT 200 MG CAP PO SCH (07:44)
[2018-07-31] MEDS: LIDOCAINE 5% PATCH TOP SCH (07:44)
[2018-07-31] MEDS: MAGNESIUM OXIDE 400 MG TAB PO SCH (07:44)
[2018-07-31] MEDS: RIVAROXABAN 15 MG TABLET PO SCH (07:44)
[2018-07-31] MEDS: DULOXETINE 20 MG CAP PO SCH (07:45)
[2018-07-31] MEDS: BACLOFEN 10 MG TAB PO SCH (07:45)
[2018-07-31] MEDS: LISINOPRIL 20 MG TAB PO SCH (07:45)
[2018-07-31] MEDS: hydroCHLOROthiazide 25 MG TAB PO SCH (07:45)
[2018-07-31] MEDS: PROMOD 30 ML DOSE PO SCH (07:46)
[2018-07-31] MEDS: NYSTATIN PWDR 100000 UNIT/GM TOP SCH (07:46)
[2018-07-31 08:19] VITALS: O2SAT 94
--- NOTE | 2018-07-31 13:16 | FAST ---
SHIFT START DATE/TIME: 07/31/2018 07:00 (CDT) SHIFT END DATE/TIME: 07/31/2018 19:00 (CDT) NAME LINH SANDS DATE OF : 1935 DATE OF ADMISSION: 07/09/2018 17:51 (RECORD CLERK) PHONE: AGE: 83 SSN# [id number] GENDER: Female ENCOUNTER PHYSICIAN: Dr. Rambo De La Rosa M.D. ADMISSION DIAGNOSIS: - Orthopaedic Disorders 08 - Unilateral Hip Fracture (08.11) Left Hip Fracture. EATING: EATING - STEP 1: Does the patient require the assistance of a person or device, or need extra time when eating? Yes. EATING - STEP 2: Does the patient require the assistance of a helper? No, patient only requires an assistive device, O R s/he takes more than reasonable time to eat, OR there is a safety concern, OR s/he requires modifie d food consistency EATING - SCORE: 6-SUSANA GROOMING: Comb/brush hair Oral care Wash, rinse, and dry face Wash, rinse, and dry hands GROOMING - STEP 1: Does the patient require the assistance of a person or device, or need extra time when grooming? Yes. GROOMING - STEP 2: Does the patient require the assistance of a helper? No. The patient only requires an assistive devic e, OR takes more than reasonable time to groom, OR there is a concern for safety as the patient groom s GROOMING - SCORE: 6-SUSANA BATHING: Activity did not occur on this shift BATHING - SCORE: 0-UNK DRESSING - UPPER BODY: T-shirt/pullover shirt (four steps) ARTICLES SCORE Total number of steps: 4 DRESSING - UPPER BODY - STEP 1: Does the patient require help from a person or device, or need extra time when dressing above the [address]? Yes. DRESSING - UPPER BODY - STEP 2: Does the patient require the assistance of a helper? Yes. DRESSING - UPPER BODY - STEP 3: Does the helper touch the patient while dressing? No. DRESSING - UPPER BODY - SCORE: 5-SUP DRESSING - LOWER BODY: Slip-on shoe - Left foot (one step) Slip-on shoe - Right foot (one step) Underwear (three steps) ARTICLES SCORE Total number of steps: 5 DRESSING - LOWER BODY - STEP 1: Does the patient require help from a person or device, or need extra time when dressing below the [address] st? Yes. DRESSING - LOWER BODY - STEP 2: Does the patient require the assistance of a helper? Yes. DRESSING - LOWER BODY - STEP 3: Does the helper touch the patient while dressing? Yes. DRESSING - LOWER BODY - STEP 4: How many of the total steps does the patient complete on his/her own? 4 DRESSING - LOWER BODY - SCORE: 4-MIN TOILETING: TOILETING - STEP 1: Does the patient require the assistance of a person or device, or need extra time with toileting? Yes . TOILETING - STEP 2: Does the patient require the assistance of a helper? Yes. TOILETING - STEP 3: How much assistance does the patient require from the helper? Hands-on assistance from the helper TOILETING - STEP 4: Of the 3 tasks: 1) Adjusting clothing prior to use, 2) Cleansing of perineal area, 3) Adjusting clot penny after use; How many tasks does the patient perform WITHOUT assistance of the helper? Three tasks with steadying assistance from the helper TOILETING - SCORE: 4-MIN BLADDER MANAGEMENT: BLADDER MANAGEMENT - STEP 1: Does the patient control the bladder completely and intentionally without equipment or devices or med ications, and is always continent? No. BLADDER MANAGEMENT - STEP 2: Does the patient require the assistance of a helper? No, patient only requires extra time BLADDER MANAGEMENT - SCORE: 6-SUSANA BLADDER MANAGEMENT - FREQUENCY OF ACCIDENTS: BLADDER MANAGEMENT(FA) - STEP 1: How many accidents has the patient had during the current shift? 1 BOWEL MANAGEMENT: BOWEL MANAGEMENT - STEP 1: Does the patient control bowels completely and intentionally without equipment devices or medications AND is always continent? No. BOWEL MANAGEMENT - STEP 2: Does the patient require the assistance of a helper? No, patient requires medication for control such as stool softeners, suppositories, laxatives, enemas, or OTC medications BOWEL MANAGEMENT - SCORE: 6-SUSANA BOWEL MANAGEMENT - FREQUENCY OF ACCIDENTS: BOWEL MANAGEMENT(FA) - STEP 1: How many accidents has the patient had during the current shift? 0 TRANSFERS: BED, CHAIR, WHEELCHAIR: TRANSFERS: BED, CHAIR, WHEELCHAIR - STEP 1: Does the patient require assistance of a person or device, or need extra time with bed, chair, or whe elchair transfers? Yes. TRANSFERS: BED, CHAIR, WHEELCHAIR - STEP 2: Does the patient require the assistance of a helper? Yes. TRANSFERS: BED, CHAIR, WHEELCHAIR - STEP 3: How much assistance does the patient require from the helper? Steadying/guiding assistance TRANSFERS: BED, CHAIR, WHEELCHAIR - SCORE: 4-MIN TRANSFERS: TOILET: TRANSFERS: TOILET - STEP 1: Does the patient require the assistance of a person or device, or need extra time with toilet transfe rs? Yes. TRANSFERS: TOILET - STEP 2: Does the patient require the assistance of a helper? Yes. TRANSFERS: TOILET - STEP 3: How much assistance does the patient require from the helper? Patient performs half or more of the tr ansferring tasks TRANSFERS: TOILET - STEP 4: Does the patient need only incidental help such as contact guard or steadying during toilet transfer? Yes. TRANSFERS: TOILET - SCORE: 4-MIN TRANSFERS: SHOWER: Activity did not occur on this shift TRANSFERS: SHOWER - SCORE: 0-UNK TRANSFERS: TUB: Activity did not occur on this shift TRANSFERS: TUB - SCORE: 0-UNK LOCOMOTION: WALK: Activity did not occur on this shift LOCOMOTION: WALK - SCORE: 0-UNK LOCOMOTION: WHEELCHAIR: LOCOMOTION: WHEELCHAIR - STEP 1: Does the patient need help to go 150 feet in a wheelchair? Yes. LOCOMOTION: WHEELCHAIR - STEP 2: How much assistance does the patient need from the helper? Only supervision, cuing, or coaxing LOCOMOTION: WHEELCHAIR - SCORE: 5-SUP COMPREHENSION: COMPREHENSION: TYPE: Both COMPREHENSION - STEP 1: Does the patient require help from a person or device, or need extra time to understand complex and a bstract ideas (such as current events, finances, discharge planning, medical issues, relationships, e tc)? No. COMPREHENSION - STEP 2: Does the patient need extra time, require an assistive device (such as glasses for visual comprehensi on or a hearing aid for auditory comprehension) or does s/he have mild difficulty understanding compl ex and abstract information? Yes. COMPREHENSION - SCORE: 6-SUSANA EXPRESSION EXPRESSION: TYPE: Both EXPRESSION - STEP 1: Does the patient require help from a person or device, or need extra time expressing complex and abst ract ideas (such as current events, finances, discharge planning, medical issues, relationships, etc) ? No. EXPRESSION - STEP 2: Does the patient need extra time, require an assistive device (such as augmentive communication syste m or a communication board), OR does s/he have mild difficulty expressing complex and abstract ideas (including mild dysarthria or mild word-find problems)? Yes. EXPRESSION - SCORE: 6-SUSANA SOCIAL INTERACTION: SOCIAL INTERACTION - STEP 1: Does the patient require a helper to interact with others in social and therapeutic situations? No. SOCIAL INTERACTION - STEP 2: Does the patient need extra time in social situations, OR does s/he interact with staff, other patien ts, and family members ONLY in structured environments, OR does s/he require medication for social in teraction? Yes, patient needs extra time SOCIAL INTERACTION - SCORE: 6-SUSANA PROBLEM SOLVING: PROBLEM SOLVING - STEP 1: Does the patient need help from a person or device, or need extra time to solve complex problems such as managing a checking account or confronting interpersonal problems? No. PROBLEM SOLVING - STEP 2: Does the patient require extra time to make decisions or solve problems, OR does s/he have slight dif ficulty reading, initiating, or self-correcting in unfamiliar situations? Yes, patient needs extra ti me. PROBLEM SOLVING - SCORE: 6-SUSANA MEMORY: MEMORY - STEP 1: Does the patient need help from a person or device, or need extra time to remember frequently encount ered people, daily routines, and executing requests? No. MEMORY - STEP 2: Does the patient have slight difficulty recognizing frequently encountered people, daily routines, or executing requests without the need for repetition or using self-initiated or environmental cues to remember? Yes. MEMORY - SCORE: 6-SUSANA SIGNATURE PANEL: The following modified sections: Eating - Score, Grooming - Score, Bathing - Score, Dressing - Upper Body - Score, Dressing - Lower Body - Score, Toileting - Score, Bladder Management - Score, Bowel Man agement - Score, Transfers: Bed, Chair, Wheelchair - Score, Transfers: Toilet - Score, Transfers: Rubi wer - Score, Transfers: Tub - Score, Locomotion: Walk - Score, Locomotion: Wheelchair - Score, Compre hension - Score, Expression - Score, Social Interaction - Score, Problem Solving - Score, Memory - Sc ore were [electronically] signed by Lillian Colby C.N.A. on MonJul 31 2018 13:15:36 T-0500 (Centra l Daylight Time)
--- NOTE | 2018-07-31 17:10 | FAST ---
ENCOUNTER DATE AND TIME: 07/31/2018 08:00 (CDT) NAME LINH SANDS DATE OF : 1935 DATE OF ADMISSION: 07/09/2018 17:51 (COMMUNITY FUNDRAISER) PHONE: AGE: 83 SSN# [id number] GENDER: Female ENCOUNTER PHYSICIAN: Dr. Rambo De La Rosa M.D. ADMISSION DIAGNOSIS: - Orthopaedic Disorders 08 - Unilateral Hip Fracture (08.11) Left Hip Fracture. EATING: Activity did not occur on this shift EATING - SCORE: 0-UNK GROOMING: Activity did not occur on this shift GROOMING - SCORE: 0-UNK BATHING: Activity did not occur on this shift BATHING - SCORE: 0-UNK DRESSING - UPPER BODY: Activity did not occur on this shift Patient is not dressing in public clothing ARTICLES SCORE Total number of steps: 0 DRESSING - UPPER BODY - SCORE: 0-UNK DRESSING - LOWER BODY: Activity did not occur on this shift Patient is not dressing in public clothing ARTICLES SCORE Total number of steps: 0 DRESSING - LOWER BODY - SCORE: 0-UNK TOILETING: Activity did not occur on this shift TOILETING - SCORE: 0-UNK BLADDER MANAGEMENT: Activity did not occur on this shift BLADDER MANAGEMENT - SCORE: 7-IND BOWEL MANAGEMENT: Activity did not occur on this shift BOWEL MANAGEMENT - SCORE: 7-IND TRANSFERS: BED, CHAIR, WHEELCHAIR: TRANSFERS: BED, CHAIR, WHEELCHAIR - STEP 1: Does the patient require assistance of a person or device, or need extra time with bed, chair, or whe elchair transfers? Yes. TRANSFERS: BED, CHAIR, WHEELCHAIR - STEP 2: Does the patient require the assistance of a helper? No. Patient only requires an assistive device fo r bed, chair, wheelchair transfers such as a sliding board, grab bar, or brace, OR s/he takes more th an reasonable time, OR there is a safety concern when s/he performs the transfers TRANSFERS: BED, CHAIR, WHEELCHAIR - SCORE: 6-SUSANA TRANSFERS: TOILET: Activity did not occur on this shift TRANSFERS: TOILET - SCORE: 0-UNK TRANSFERS: SHOWER: Activity did not occur on this shift TRANSFERS: SHOWER - SCORE: 0-UNK TRANSFERS: TUB: Activity did not occur on this shift TRANSFERS: TUB - SCORE: 0-UNK LOCOMOTION: WALK: LOCOMOTION: WALK - STEP 1: Does the patient need help from a person or device, or need extra time to walk 150 feet? No. LOCOMOTION: WALK - STEP 2: Does the patient need an assistive device (such as an orthosis, prosthesis, crutches, or walker) to g o 150 feet, OR does s/he take more than reasonable time, OR is there a concern for safety? Yes, the p atient needs an assistive device LOCOMOTION: WALK - SCORE: 6-SUSANA LOCOMOTION: WHEELCHAIR: LOCOMOTION: WHEELCHAIR - STEP 1: Does the patient need help to go 150 feet in a wheelchair? No. LOCOMOTION: WHEELCHAIR - SCORE: 6-SUSANA LOCOMOTION: STAIRS: Activity did not occur on this shift LOCOMOTION: STAIRS - SCORE: 0-UNK COMPREHENSION: COMPREHENSION - SCORE: 0-UNK EXPRESSION EXPRESSION - SCORE: 0-UNK SOCIAL INTERACTION: SOCIAL INTERACTION - SCORE: 0-UNK PROBLEM SOLVING: PROBLEM SOLVING - SCORE: 0-UNK MEMORY: MEMORY - SCORE: 0-UNK SIGNATURE PANEL: The following modified sections: Transfers: Bed, Chair, Wheelchair - Score, Transfers: Toilet - Score , Locomotion: Walk - Score, Locomotion: Wheelchair - Score, Locomotion: Stairs - Score were [electron ically] signed by Jagjit Slaughter PT on MonJul 31 2018 17:08:53 GMT-0500 (Central Daylight Time)
--- NOTE | 2018-07-31 18:48 | R.DS ---
FACILITY [facility] MR# [id number] NAME LINH SANDS ADDRESS [address] [place] [address] [address] [place] [address] [address] [id number] PHONE DATE OF 1935 AGE 83 SSN# [id number] GENDER Female DEXTERITY Right-handed MARITAL STATUS RACE White ENCOUNTER PHYSICIAN Dr. Rambo De La Rosa M.D. REFERRING DOCTOR Reynaldo Handley REFERRING FACILITY [facility] DISCHARGE DIAGNOSIS: - Orthopaedic Disorders 08 - Unilateral Hip Fracture (08.11) Left Hip Fracture. DISCHARGE COMORBIDITIES: - N/A Chronic Atrial Fibrillation Hypertension Hypothyroidism Restless Leg Syndrome ACUTE KIDNEY INJURY Anemia DATE OF ADMISSION 07/09/2018 17:51 (BRAND AMBASSADOR) MEDICATION ALLERGIES: Codeine ENVIRONMENTAL ALLERGIES: None Known - Substance Allergies None Known - Other Allergies None Known NURSING: - Shower allowing shower - Skin care per protocol PRECAUTIONS: - Posterior Hip Precaution No adduction across midline No external rotation No hip flexion >90 degrees No internal rotation No wheel chair propulsion - Weight Bearing Precaution WBAT left LE ACTIVITIES OOB only with supervision THERAPIES: - Occupational Therapy Evaluate and Treat - Physical Therapy Evaluate and Treat HISTORY OF PRESENT ILLNESS: Pt. is a 83 yo Right-handed white female.On 06/29/2018 she was admitted to [facility] with francesca gnosis Left Hip Fracture.Her impairment category is Orthopaedic Disorders 08 - Unilateral Hip Fractu re (08.11).Pre-morbidly, Pt. was independent/mod-I in Sphincter Control, Communication, and Social Co gnition; and she had good Sphincter Control.Currently, she has deficits of Self-Care, Transfers Contr ol, Endurance, Balance, Safety Awareness, and Locomotion.Pt. is now referred to [facility] for acute in-patient rehabilitation in order to maximize patient's functional independen ce in activities of daily living, strength, ROM, and mobility.- Rehab Goal Patient has realistic goal of being discharged at assistance level 6-Radha to reside at Home with Fam wilmer/Relatives. HOSPITAL COURSE: ANTERIOR HIP PRECAUTION: On 07/10/2018 the following precautions were added for the patient: Anterior Hip Precaution - No abd uction, Anterior Hip Precaution - No active extension, Anterior Hip Precaution - No adduction acros s midline, Anterior Hip Precaution - No external rotation, Anterior Hip Precaution - No hip flexion >90 degrees, and Anterior Hip Precaution - No internal rotation. On 07/11/2018 the following precautions were removed for the patient: Anterior Hip Precaution - No a bduction, Anterior Hip Precaution - No active extension, Anterior Hip Precaution - No adduction acr oss midline, Anterior Hip Precaution - No external rotation, Anterior Hip Precaution - No hip flexi on >90 degrees, and Anterior Hip Precaution - No internal rotation. The following precautions were added for the patient: Anterior Hip Precaution - No abduction, Anterio r Hip Precaution - No active extension, Anterior Hip Precaution - No adduction across midline, Anteri or Hip Precaution - No external rotation, Anterior Hip Precaution - No hip flexion >90 degrees, and A nterior Hip Precaution - No internal rotation. On 07/12/2018 the following precautions were removed for the patient: Anterior Hip Precaution - No ab duction, Anterior Hip Precaution - No active extension, Anterior Hip Precaution - No adduction across midline, Anterior Hip Precaution - No external rotation, Anterior Hip Precaution - No hip flexion >9 0 degrees, and Anterior Hip Precaution - No internal rotation. The following precautions were added for the patient: Anterior Hip Precaution - No abduction, Anteri or Hip Precaution - No active extension, Anterior Hip Precaution - No adduction across midline, Ant erior Hip Precaution - No external rotation, Anterior Hip Precaution - No hip flexion >90 degrees, and Anterior Hip Precaution - No internal rotation. The following precautions were removed for the patient: Anterior Hip Precaution - No abduction, Ante rior Hip Precaution - No active extension, Anterior Hip Precaution - No adduction across midline, A nterior Hip Precaution - No external rotation, Anterior Hip Precaution - No hip flexion >90 degrees , and Anterior Hip Precaution - No internal rotation. On 07/09/2018 the following precautions were added for the patient: Posterior Hip Precaution - No add uction across midline, Posterior Hip Precaution - No wheel chair propulsion, Posterior Hip Precaution - No hip flexion >90 degrees, Posterior Hip Precaution - No internal rotation, and Posterior Hip Pre caution - No external rotation. On 07/11/2018 the following precautions were added for the patient: Posterior Hip Precaution - No ad duction across midline, Posterior Hip Precaution - No external rotation, Posterior Hip Precaution - No hip flexion >90 degrees, Posterior Hip Precaution - No internal rotation, and Posterior Hip Prec aution - No wheel chair propulsion. The following precautions were removed for the patient: Posterior Hip Precaution - No adduction acros s midline, Posterior Hip Precaution - No external rotation, Posterior Hip Precaution - No hip flexion >90 degrees, Posterior Hip Precaution - No internal rotation, Posterior Hip Precaution - No wheel ch air propulsion, Posterior Hip Precaution - No adduction across midline, Posterior Hip Precaution - No external rotation, Posterior Hip Precaution - No hip flexion >90 degrees, Posterior Hip Precautio n - No internal rotation, and Posterior Hip Precaution - No wheel chair propulsion. On 07/09/2018 the following precautions were added for the patient: Weight Bearing Precaution - WBAT left LE. On 07/10/2018 the following precautions were added for the patient: Weight Bearing Precaution - WBAT left LE. On 07/11/2018 the following precautions were removed for the patient: Weight Bearing Precaution - WB AT left LE. On 07/12/2018 the following precautions were added for the patient: Weight Bearing Precaution - WBAT left LE. DIET - LIQUID TEXTURE: On 07/09/2018 Pt was upgraded to Regular Diet - Liquid Texture. DIET - SOLID TEXTURE: On 07/09/2018 Pt was upgraded to Regular Diet - Solid Texture. DIET TYPE: On 07/09/2018 Pt was upgraded to Regular Diet Type. POSTERIOR HIP PRECAUTION: TUBE FEED: On 07/09/2018 Pt was changed to N/A Tube Feed. WEIGHT BEARING PRECAUTION: DISCHARGE PHYSICAL EXAM - Gen Alert and awake Lying in bed No apparent distress Oriented to: person, time, and place - Skin No breakdown No abnormalities - Eyes No abnormalities - ENMT No abnormalities - Neck No abnormalities - CVS RRR - Chest No abnormalities - Resp Clear to auscultation - Abd +bowel sounds - GI Soft Deferred - No abnormalities - Ext Left hip surgical site has good hemostasis. - MSK 4+/5 weakness in left lower extremity - Neuro 4/5 strength left lower extremity. - Psych No abnormalities FUNCTIONAL STATUS: - Self-Care A. Eating 6-Radha B. Grooming 6-Radha C. Bathing 5-sup D. Dressing - Upper 6-Radha E. Dressing - Lower 4-Maria Isabel F. Toileting 6-Radha - Sphincter Control G: Bladder control 7-Ind H: Bowel control 7-Ind - Transfers Control I. Bed/Chair/Wheelchair 6-Radha J. Toilet 6-Radha K. Tub/Shower 5-sup - Locomotion L. Walk/Wheelchair (B) 6-Radha M. Stairs 2-maxA - Communication N. Comprehension (B) 6-Radha O. Expression (B) 6-Radha - Social Cognition P. Social Interaction 6-Radha Q. Problem Solving 6-Radha R. Memory 6-Radha - Endurance Fair - Balance Fair - Safety Awareness Fair DISCHARGE INSTRUCTIONS: - N/A Xarelto 15 mg daily. DISCHARGE PLAN, FOLLOW UP CARE PROVISIONS: - Estimated Length of Stay (days) 14. - Consensus on plan Discharge plan has been discussed with primary caregiver. Patient/Family is in agreement with the irasema n. Primary caregiver is in agreement with the plan. - Patient/Family Goals Return home with assistance. - Planned Living Setting Upon Discharge Home, to live alone. SIGNATURE PANEL: (CDT)
== END 2018-07-31 14:50 | disposition home or self-care (01) | DRG 560 ==
LOC: 5TH 17:51
PROVIDERS: ADMIT Psychiatry & Neurology Neurology with Special Qualifications in Child Neurology; ATTEND Psychiatry & Neurology Neurology with Special Qualifications in Child Neurology
DX: S72.002D Fracture of unspecified part of neck of left femur, subsequent encounter for closed fracture with routine healing (principal); N17.9 Acute kidney failure, unspecified; I48.2 Chronic atrial fibrillation; I10 Essential (primary) hypertension; E03.9 Hypothyroidism, unspecified; G25.81 Restless legs syndrome; D64.9 Anemia, unspecified
CPT/HCPCS: 36415; 80048; 82040; 82805; 83735; 84134; 85025; 92523; 92610; 93925; 93970; 94640; 97110; 97112; 97116; 97127; 97150; 97163; 97167; 97530; 97542

== ENCOUNTER 2018-08-19 13:09 | Emergency (ER) | payer OTHER ==
--- OUTSIDE RECORDS SUMMARY | 2018-08-19 13:13 | XMS REPORT | Clinical Summary ---
:1935 Author Organization [facility] Address [address] [place] [address] Care Team Providers Name Role Phone Michael Albright MD Primary Care Provider Allergies Active Allergy Reactions Severity Noted Date Comments Codeine Rash Medium 06/29/2018 Medications Medication Sig Dispensed Refills Start Date End Date Status lisinopril-hydrochl Take 1 tablet 0 Active orothiazide by mouth (GUS GOMEZTI daily. C) 20-25 mg per tablet pramipexole [...] 40 mg tablet mouth daily as needed. gabapentin Take 1,200 mg 0 07/09/2018 Discontinued (NEURONTIN) 600 mg by mouth 2 tablet (two) times a day. ALPRAZolam (XANAX) Take 1 mg by 0 07/09/2018 Discontinued 1 MG tablet mouth nightly. potassium 99 mg Take 1 tablet 0 07/09/2018 Discontinued tablet by mouth daily as needed (with Lasix). OVER THE COUNTER acetaminophen Take 2 tablets 0 07/09/2018 08/08/2018 (TYLENOL) 325 MG (650 mg total) tablet by mouth every 4 (four) hours as needed for mild pain for up to 30 days. amLODIPine Take 1 tablet 30 tablet 0 07/09/2018 08/08/2018 (NORVASC) 5 mg (5 mg total) tablet by mouth daily for 30 days. sennosides-docusate Take 1 tablet 30 tablet 0 07/09/2018 08/08/2018 sodium (SENOKOT-S) by mouth 8.6-50 mg per nightly for 30 tabletIndications: days. Closed fracture of left hip, initial encounter ([facility]) traMADol (ULTRAM) Take 1 tablet 0 07/09/2018 07/23/2018 50 mg (50 mg total) tabletIndications: by mouth every Closed fracture of 6 (six) hours left hip, initial as needed for encounter ([facility]) moderate pain for up to 14 days. pantoprazole Take 1 tablet 30 tablet 0 07/10/2018 08/09/2018 (PROTONIX) 40 MG EC (40 mg total) tablet by mouth daily for 30 days. Active Problems Problem Noted Date Closed fracture of left hip 06/29/2018 Encounters Date Type Specialty Care Team Description 08/19/2018 Intake Access N/A 08/03/2018 Office Visit Orthopedic Surgery Jason Harrington Closed fracture of MD Isiah left hip with routine healing, subsequent encounter (Primary Dx) 06/30/2018 Anesthesia Event Orthopedic Surgery Jelani Larsen MD 06/30/2018 Surgery Orthopedic Surgery Jason Harrington INTRAMEDULLARY MD Isiah RODDING, FEMUR 06/29/2018 - Hospital Encounter Neurosurgery IrinaPetit, Closed fracture of left hip, initial encounter ([facility]) (Primary Dx); 07/09/2018 [facility]aldo [facility]ñoz MD [facility]/29[facility]2018 Intake Access N/A after 08/18/2017 Social History Tobacco Use Types Packs/Day Years [...] Taken Blood Pressure 184/86 07/09/2018 3:53 PM [facility] Pulse 70 07/09/2018 3:53 PM [facility] Temperature 36.4 C (97.6 F) 07/09/2018 11:46 AM [facility] Respiratory Rate 17 07/09/2018 3:50 PM [facility] Oxygen Saturation 95% 07/09/2018 3:45 PM [facility] Inhaled Oxygen Concentration - - Weight 115 kg (252 lb 10.4 oz) 07/02/2018 10:00 PM [facility] Height 175.3 cm (5' 9") 06/29/2018 11:15 PM [facility] Body Mass Index 37.31 07/02/2018 10:00 PM [facility] Plan of Treatment Date Type Specialty Care Team Description 09/28/2018 Office Visit Orthopedic Surgery Jason Harrington MD [address] [address] Health Maintenance Due Date Last Done Comments SHINGLES VACCINES (#1) 1985 65+ PNEUMOCOCCAL VACCINE (1 of 2 - PCV13) 02/25/2000 PNEUMOCOCCAL POLYSACCHARIDE VACCINE AGE 65 AND OVER 02/25/2000 INFLUENZA VACCINE 12/06/2018 Implants Implanted Type Area General Farmer Device Shelf Model / Identifier Expiration Serial / Date Lot Kit Scr Intrlkng 90mm Lag 85mm Comp Intertan - [id number] Hip Joint Left: EDIL AND [id number] / Implanted: Qty: 1 on 06/30/2018 by Jason Harrington MD Implants Hip NEPHEW / ORTHOPEDICS Trigen Low Profile Screw 5.0mm X 40mm - [id number] [id number] IMPLANT Left: [employer] [id number] / Implanted: Qty: 1 on 06/30/2018 by Jason Harrington MD DEVICES Hip ORTHOPAEDICS / Intertan 1.5 [id number] 125d Lt - [id number] IPM IMPLANT Left: [employer] 08/19/2024 [id number] / Implanted: Qty: 1 on 06/30/2018 by Jason Harrington MD DEVICES Hip ORTHOPAEDICS / [id number] Procedures Procedure Name Priority Date/Time Associated Comments Diagnosis XR FEMUR 2 VW LEFT Routine 08/03/2018 12:25 Closed fracture of Results for this PM CDT left hip with procedure are in routine healing, the results subsequent section. encounter ARTERIAL BLOOD GAS Timed 07/09/2018 6:46 Results for this AM [facility] procedure are in the results section. ARTERIAL BLOOD GAS Routine 07/08/2018 9:09 Results for this PM [facility] procedure are in the results section. ESTIMATED GFR Routine 07/08/2018 3:30 Results for this AM [facility] [facility] procedure are in the results section. CBC HEMOGRAM Routine 07/08/2018 3:30 Results for this AM [facility] [facility] procedure are in the results section. PHOSPHORUS LEVEL Routine 07/08/2018 3:30 Results for this AM [facility] [facility] procedure are in the results section. MAGNESIUM LEVEL Routine 07/08/2018 3:30 Results for this AM [facility] [facility] procedure are in the results section. BASIC METABOLIC PANEL Routine 07/08/2018 3:30 Results for this AM [facility] [facility] procedure are in the results section. ARTERIAL BLOOD GAS STAT 07/07/2018 5:32 Results for this AM [facility] [facility] procedure are in the results section. B NATRIURETIC PEPTIDE Routine 07/07/2018 5:30 Results for this AM [facility] procedure are in the results section. HC COMPLETE BLD COUNT Routine 07/07/2018 5:30 Results for this W/AUTO DIFF AM [facility] [facility] procedure are in the results section. ESTIMATED GFR Routine 07/07/2018 4:00 Results for this AM [facility] [facility] procedure are in the results section. MAGNESIUM LEVEL Routine 07/07/2018 4:00 Results for this AM [facility] [facility] procedure are in the results section. BASIC METABOLIC PANEL Routine 07/07/2018 4:00 Results for this AM [facility] [facility] procedure are in the results section. ARTERIAL BLOOD GAS STAT 07/06/2018 10:56 Results for this PM [facility] [facility] procedure are in the results section. ARTERIAL BLOOD GAS Timed 07/06/2018 10:02 Results for this PM [facility] [facility] procedure are in the results section. ESTIMATED GFR Routine 07/06/2018 4:30 Results for this AM [facility] [facility] procedure are in the results section. B NATRIURETIC PEPTIDE Routine 07/06/2018 4:30 Results for this AM [facility] procedure are in the results section. HC COMPLETE BLD COUNT Routine 07/06/2018 4:30 Results for this W/AUTO DIFF AM [facility] [facility] procedure are in the results section. PHOSPHORUS LEVEL Routine 07/06/2018 4:30 Results for this AM [facility] [facility] procedure are in the results section. MAGNESIUM LEVEL Routine 07/06/2018 4:30 Results for this AM [facility] procedure are in the results section. BASIC METABOLIC PANEL Routine 07/06/2018 4:30 Results for this AM [facility] procedure are in the results section. B NATRIURETIC PEPTIDE Routine 07/05/2018 6:21 Results for this AM [facility] procedure are in the results section. HC COMPLETE BLD COUNT Routine 07/05/2018 6:21 Results for this W/AUTO DIFF AM [facility] [facility] procedure are in the results section. ESTIMATED GFR Routine 07/05/2018 4:00 Results for this AM [facility] [facility] procedure are in the results section. BASIC METABOLIC PANEL Routine 07/05/2018 4:00 Results for this AM [facility] procedure are in the results section. VENOUS BLOOD GAS Routine 07/04/2018 3:00 Results for this PM [facility] [facility] procedure are in the results section. XR CHEST 1 VW PORTABLE Routine 07/04/2018 9:57 Results for this AM [facility] procedure are in the results section. ESTIMATED GFR Routine 07/04/2018 5:22 Results for this AM [facility] [facility] procedure are in the results section. MAGNESIUM LEVEL Routine 07/04/2018 5:22 Results for this AM [facility] [facility] procedure are in the results section. BASIC METABOLIC PANEL Routine 07/04/2018 5:22 Results for this AM [facility] procedure are in the results section. XR CHEST 1 VW PORTABLE STAT 07/03/2018 7:02 Results for this AM [facility] procedure are in the results section. ARTERIAL BLOOD GAS STAT 07/03/2018 6:15 Results for this AM [facility] procedure are in the results section. MANUAL DIFFERENTIAL Routine 07/03/2018 4:53 Results for this AM [facility] procedure are in the results section. ESTIMATED GFR Routine 07/03/2018 4:53 Results for this AM [facility] [facility] procedure are in the results section. PHOSPHORUS LEVEL Routine 07/03/2018 4:53 Results for this AM [facility] procedure are in the results section. MAGNESIUM LEVEL Routine 07/03/2018 4:53 Results for this AM [facility] procedure are in the results section. BASIC METABOLIC PANEL Routine 07/03/2018 4:53 Results for this AM [facility] procedure are in the results section. CBC WITH PLATELET AND Routine 07/03/2018 4:53 Results for this DIFFERENTIAL AM [facility] [facility] procedure are in the results section. ARTERIAL BLOOD GAS Routine 07/02/2018 5:25 Results for this PM [facility] [facility] procedure are in the results section. POC GLUCOSE Routine 07/02/2018 5:13 Results for this PM [facility] procedure are in the results section. US RENAL STAT 07/02/2018 2:00 Closed fracture of Results for this PM [facility] left hip, initial procedure are in encounter (HCC) the results section. ESTIMATED GFR Routine 07/02/2018 12:45 Results for this PM [facility] procedure are in the results section. URIC ACID LEVEL Routine 07/02/2018 12:45 Results for this PM [facility] procedure are in the results section. CREATINE KINASE, TOTAL Routine 07/02/2018 12:45 Results for this (CPK) PM [facility] procedure are in the results section. BASIC METABOLIC PANEL Routine 07/02/2018 12:45 Results for this PM [facility] procedure are in the results section. URINALYSIS, AUTOMATED Routine 07/02/2018 12:45 Results for this WITH MICROSCOPY PM [facility] procedure are in the results section. PROTEIN, URINE, RANDOM Routine 07/02/2018 12:45 Results for this PM [facility] procedure are in the results section. CREATININE LEVEL, Routine 07/02/2018 12:45 Results for this URINE, RANDOM PM [facility] [facility] procedure are in the results section. SODIUM LEVEL, URINE, Routine 07/02/2018 12:45 Results for this RANDOM PM [facility] procedure are in the results section. URINE EOSINOPHILS Routine 07/02/2018 12:45 Results for this PM [facility] procedure are in the results section. B NATRIURETIC PEPTIDE Routine 07/02/2018 5:00 Results for this AM [facility] procedure are in the results section. CBC WITH PLATELET AND Routine 07/02/2018 5:00 Results for this DIFFERENTIAL AM [facility] procedure are in the results section. ESTIMATED GFR Routine 07/02/2018 4:00 Results for this AM [facility] procedure are in the results section. MAGNESIUM LEVEL Routine 07/02/2018 4:00 Results for this AM [facility] procedure are in the results section. BASIC METABOLIC PANEL Routine 07/02/2018 4:00 Results for this AM [facility] procedure are in the results section. LACTIC ACID LEVEL, Timed 07/01/2018 1:30 Results for this SEPSIS - NOW AND PM [facility] [facility] procedure are in REPEAT 2X EVERY 3 the results HOURS section. LACTIC ACID LEVEL, Timed 07/01/2018 10:30 Results for this SEPSIS - NOW AND AM [facility] procedure are in REPEAT 2X EVERY 3 the results HOURS section. ECG 12-LEAD STAT 07/01/2018 8:01 Results for this AM [facility] procedure are in the results section. LACTIC ACID LEVEL, Timed 07/01/2018 7:34 Results for this SEPSIS - NOW AND AM [facility] procedure are in REPEAT 2X EVERY 3 the results HOURS section. XR CHEST 1 VW PORTABLE STAT 07/01/2018 7:21 Results for this AM [facility] procedure are in the results section. ARTERIAL BLOOD GAS STAT 07/01/2018 5:30 Results for this AM [facility] procedure are in the results section. B NATRIURETIC PEPTIDE STAT 07/01/2018 5:00 Results for this AM [facility] procedure are in the results section. HC COMPLETE BLD COUNT STAT 07/01/2018 5:00 Results for this W/AUTO DIFF AM [facility] procedure are in the results section. POC GLUCOSE Routine 07/01/2018 4:41 Results for this AM [facility] procedure are in the results section. ESTIMATED GFR STAT 07/01/2018 4:41 Results for this AM [facility] [facility] procedure are in the results section. CREATINE KINASE, TOTAL STAT 07/01/2018 4:41 Results for this (CPK) AM [facility] procedure are in the results section. IONIZED CALCIUM STAT 07/01/2018 4:41 Results for this AM [facility] procedure are in the results section. LACTIC ACID LEVEL STAT 07/01/2018 4:41 Results for this AM [facility] [facility] procedure are in the results section. TROPONIN STAT 07/01/2018 4:41 Results for this AM [facility] procedure are in the results section. MAGNESIUM LEVEL STAT 07/01/2018 4:41 Results for this AM [facility] procedure are in the results section. PHOSPHORUS LEVEL STAT 07/01/2018 4:41 Results for this AM [facility] procedure are in the results section. COMPREHENSIVE STAT 07/01/2018 4:41 Results for this METABOLIC PANEL AM [facility] procedure are in the results section. XR PELVIS 1 OR 2 VW Routine 06/30/2018 12:36 Results for this PM [facility] procedure are in the results section. XR FEMUR 2 VW LEFT Routine 06/30/2018 12:36 Results for this PM [facility] procedure are in the results section. OR FL > 1 HOUR Routine 06/30/2018 11:14 Results for this AM [facility] procedure are in the results section. MT AN ELECTIVE Routine 06/30/2018 9:41 ENDOTRACHEAL AIRWAY AM [facility] Procedure Note - Jelani Larsen MD - 06/30/2018 9:41 AM [facility] Airway Date/Time: 06/30/2018 8:58 AM Performed by: Linh Petit CRNA Authorized by: Jelani Larsen MD Location: OR Urgency: Elective Difficult Airway: No Anesthesiologist: Jelani Larsen MD Resident/PATIENT PARTNER/AA: Linh Petit CRNA Performed by: resident/PATIENT PARTNER/AA Preoxygenated with 100% O2: Yes C-spine Precautions [...] Approach: 1 INTRAMEDULLARY RODDING, 06/30/2018 8:00 AM [facility] Closed left subtrochanteric FEMUR femur fracture (HCC) Special Needs large c arm; meredith and nephew IMN; fracture table; request first available time ECG PRE/POST OP STAT 06/30/2018 7:47 AM [facility] HC COMPLETE BLD COUNT W/AUTO STAT 06/30/2018 5:45 AM [facility] Results for this DIFF procedure are in the results section. PARTIAL THROMBOPLASTIN TIME STAT 06/30/2018 5:45 AM [facility] Results for this (PTT) procedure are in the results section. PROTHROMBIN TIME WITH INR STAT 06/30/2018 5:45 AM [facility] PTH-RELATED PEPTIDE Routine 06/30/2018 12:45 AM [facility] VITAMIN D 25 HYDROXY LEVEL STAT 06/29/2018 10:[address] PELVIS WO CONTRAST STAT 06/29/2018 9:26 PM [facility] XR FEMUR 2 VW LEFT STAT 06/29/2018 8:24 PM [facility] ESTIMATED GFR STAT 06/29/2018 8:19 PM [facility] TYPE AND SCREEN Routine 06/29/2018 8:19 PM [facility] COMPREHENSIVE METABOLIC STAT 06/29/2018 8:19 PM [facility] Results for this PANEL procedure are in the results section. PARTIAL THROMBOPLASTIN TIME STAT 06/29/2018 8:19 PM [facility] Results for this (PTT) procedure are in the results section. PROTHROMBIN TIME WITH INR STAT 06/29/2018 8:19 PM [facility] HC COMPLETE BLD COUNT W/AUTO STAT 06/29/2018 8:19 PM [facility] Results for this DIFF procedure are in the results section. XR CHEST 1 VW PORTABLE STAT 06/29/2018 8:19 PM [facility] XR HIPS BILATERAL AP LATERAL STAT 06/29/2018 8:18 PM [facility] Results for this W AP PELVIS procedure are in the results section. XR PELVIS 1 OR 2 VW STAT 06/29/2018 8:18 PM [facility] after 08/18/2017 Results XR Femur 2 Vw Left (08/03/2018 12:25 PM CDT)Only the most recent of3 resultswithin the time period is included. Narrative Performed At X-rays of left femur demonstrate previous left intertrochanteric fracture [facility] which has shortened.Tw cephalo-medullary screws have backed out in comparison to previous x-rays.The fracture still appears to be well aligned and opposed Performing Organization Address City/[facility]/Zipcode Phone Number [facility] [address] [place] [address] Arterial blood gas (07/09/2018 6:46 AM [facility])Only the most recent of8 resultswithin the time period is included. pH, arterial 7.48 (H) 7.35 - 7.45 [facility] pCO2, arterial 39 35 - 45 mmHg [facility] pO2, arterial 108 (H) 80 - 90 mmHg [facility] Bicarbonate, arterial 28.4 (H) 21.0 - 28.0 mmol/L [facility] Base excess, arterial 5 (H) -2 - 2 mEq/L [facility] O2 saturation, arterial 99 95 - 100 % [facility] Specimen Blood Performing Organization Address City/[facility]/Zipcode Phone Number [facility] DEPARTMENT OF PATHOLOGY AND [address] [place] [address] GENOMIC MEDICINE [address] [address] Estimated GFR (07/08/2018 3:30 AM [facility])Only the most recent of10 resultswithin the time period is included. Estimated GFR 66 mL/min/1.73 m2 [facility] Comment: HOSPITAL CatergoryUnitsInterpretation G1 >=90 Normal or high G2 60-89Mildly decreased [id number] to moderately decreased E1v30-35Hiptvmynbk to severely decreased G4 15-29Severely decreased G5 <15Kidney failure The eGFR was calculated using the Chronic Kidney Disease Epidemiology Collaboration (CKD-EPI) equation. Interpretation is based on recommendations of the National Kidney Foundation-Kidney Disease Outcomes Quality Initiative (NKF-KDOQI) published in 2014. Specimen Plasma specimen Performing Organization Address City/[facility] Phone Number [facility] DEPARTMENT OF PATHOLOGY AND [address] [place] [phone] CBC hemogram (07/08/2018 3:30 AM [facility]) WBC 9.86 4.50 - 11.00 k/uL [facility] RBC 3.15 (L) 4.20 - 5.50 m/uL [facility] HGB 10.2 (L) 12.0 - 16.0 g/dL [facility] HCT 32.6 (L) 37.0 - 47.0 % [facility] MCV 103.5 (H) 82.0 - 100.0 fL [facility] MCH 32.4 27.0 - 34.0 pg [facility] MCHC 31.3 31.0 - 37.0 g/dL [facility] RDW - SD 49.2 37.0 - 55.0 fL [facility] MPV 10.1 8.8 - 13.2 fL [facility] Platelet count 377 150 - 400 k/uL [facility] Nucleated RBC 0.00 /100 WBC [facility] Specimen Blood Performing Organization Address City/[facility] Phone Number [facility] DEPARTMENT OF PATHOLOGY AND [address] [place] [phone] Phosphorus level (07/08/2018 3:30 AM [facility])Only the most recent of4 resultswithin the time period is included. Phosphorus 3.2 2.4 - 4.5 mg/dL [facility] Specimen Plasma specimen Performing Organization Address City/[facility] Cent[facility]ode Phone Number [facility] DEPARTMENT OF PATHOLOGY AND [address] [place] [phone] Magnesium level (07/08/2018 3:30 AM [facility])Only the most recent of7 resultswithin the time period is included. Magnesium 1.7 1.6 - 2.4 mg/dL [facility] Specimen Plasma specimen Performing Organization Address City/[facility] [place] Phone Number [facility] DEPARTMENT OF PATHOLOGY AND [address] [place] [address] Basic metabolic panel (07/08/2018 3:30 AM [facility])Only the most recent of8 resultswithin the time period is included. Sodium 138 135 - 148 mEq/L [facility] Potassium 4.7 3.5 - 5.0 mEq/L [facility] Chloride 98 98 - 112 mEq/L [facility] CO2 27 24 - 31 mEq/L [facility] Anion gap 13@ANIO 7 - 15 mEq/L [facility] BUN 16 8 - 23 mg/dL [facility] Creatinine 0.82 0.50 - 0.90 mg/dL [facility] Glucose 120 (H) 65 - 99 mg/dL [facility] Calcium 10.0 8.8 - 10.2 mg/dL [facility] Specimen Plasma specimen Performing Organization Address [facility] [place] Phone Number [facility] DEPARTMENT OF PATHOLOGY AND [address] [place] [address] CBC with platelet and differential (07/07/2018 5:30 AM [facility])Only the most recent of8 resultswithin the time period is included. WBC 9.36 4.50 - 11.00 k/uL [facility] RBC 2.95 (L) 4.20 - 5.50 m/uL [facility] HGB 9.6 (L) 12.0 - 16.0 g/dL [facility] HCT 30.4 (L) 37.0 - 47.0 % [facility] MCV 103.1 (H) 82.0 - 100.0 fL [facility] MCH 32.5 27.0 - 34.0 pg [facility] MCHC 31.6 31.0 - 37.0 g/dL [facility] RDW - SD 49.0 37.0 - 55.0 fL [facility] MPV 10.2 8.8 - 13.2 fL [facility] Platelet count 326 150 - 400 k/uL [facility] Nucleated RBC 0.00 /100 WBC [facility] Neutrophils 73.4 (H) 39.0 - 69.0 % [facility] Lymphocytes 15.8 (L) 25.0 - 45.0 % [facility] Monocytes 8.0 0.0 - 10.0 % [facility] Eosinophils 1.5 0.0 - 5.0 % [facility] Basophils 0.6 0.0 - 1.0 % [facility] Immature granulocytes 0.7Comment: "Immature 0.0 - 1.0 % [facility] granulocytes" [facility] (promyelocytes, myelocytes, metamyelocytes) Specimen Blood Performing Organization Address City/[facility] Phone Number [facility] DEPARTMENT OF PATHOLOGY AND [address] [place] [phone] B natriuretic peptide (07/07/2018 5:30 AM [facility])Only the most recent of5 resultswithin the time period is included. BNP 167 (H) 0 - 100 pg/mL [facility] Specimen Blood Performing Organization Address [facility] [place] Phone Number [facility] DEPARTMENT OF PATHOLOGY AND [address] [place], [place] [phone] [address] [phone] Venous blood gas (07/04/2018 3:00 PM [facility]) pH, venous 7.34 7.32 - 7.42 [facility] pCO2, venous 54 (H) 45 - 51 mmHg [facility] pO2, venous 34 25 - 40 mmHg [facility] Base excess, venous 2 -2 - 2 meq/L [facility] O2 saturation, venous 60 40 - 70 % [facility] Bicarbonate, venous 28.2 (H) 21.0 - 28.0 mmol/L [facility] Specimen Blood Performing Organization Address City/[facility]ode Phone Number [facility] DEPARTMENT OF PATHOLOGY AND [address] [place], [place] [phone] [address] [phone] XR Chest 1 Vw Portable (07/04/2018 9:57 AM [facility])Only the most recent of4 resultswithin the time period is included. Narrative Performed At EXAMINATION:XR CHEST 1 VW PORTABLE [facility] CLINICAL HISTORY:cough COMPARISON:July 03, 2018 IMPRESSION: Transvenous pacemakers in the left axillary fold.There is cardiomegaly.Mediastinum is normal. Pulmonary vasculature is slightly prominent with mild infiltrate and atelectasis noted at both lung bases somewhat more on the right.This is generally similar to the preceding day's exam. [facility]-[id number] Procedure Note Interface, Radiology Results Incoming - 07/04/2018 11:00 AM [facility] EXAMINATION: XR CHEST 1 VW PORTABLE CLINICAL HISTORY: cough COMPARISON: July 03, 2018 IMPRESSION: Transvenous pacemakers in the left axillary fold. There is cardiomegaly. Mediastinum is normal. Pulmonary vasculature is slightly prominent with mild infiltrate and atelectasis noted at both lung bases somewhat more on the right. This is generally similar to the preceding day's exam. [facility]-[id number] Performing Organization Address City/State/Zipcode Phone Number [facility] [address] [place] [address] Manual differential (07/03/2018 4:53 AM CRIB PAD MAKER) Manual differential PERFORMED [facility] Neutrophils 74.0 (H) 39.0 - 69.0 % [facility] Lymphocytes 14.0 (L) 25.0 - 45.0 % [facility] Monocytes 9.0 0.0 - 10.0 % [facility] Eosinophils 2.0 0.0 - 5.0 % [facility] Basophils 1.0 0.0 - 1.0 % [facility] Metamyelocytes 0 % [facility] Promyelocytes 0 % [facility] Platelet slide review Vivien adequate [facility] Toxic granulation Slight [facility] Anisocytosis Moderate [facility] Polychromasia Moderate [facility] Ovalocytes Moderate [facility] Enlarged platelets Moderate (A) [facility] Giant platelets Occasional [facility] Performing Organization Address City/[facility]/Zipcode Phone Number [facility] DEPARTMENT OF PATHOLOGY AND [address] [place] [address] GENOMIC MEDICINE [address] [place] [address] POC glucose (07/02/2018 5:13 PM CRIB PAD MAKER)Only the most recent of2 resultswithin the time period is included. POC glucose 182 (H) 65 - 99 mg/dL [facility] Comment: Meter ID: [id number] [employer] Senior Manager: Jas Chaidez Performing Organization Address City/[facility]/Zipcode Phone Number [facility] DEPARTMENT OF PATHOLOGY AND [address] [place] [address] GENOMIC MEDICINE [address] [address] [place] Renal (07/02/2018 2:00 PM CRIB PAD MAKER) Narrative Performed At EXAMINATION:US RENAL [facility] CLINICAL [...] 8. Calculi: No calculi 9. Other Findings:None [facility]-[id number] Procedure Note Interface, Radiology Results Incoming - 07/02/2018 3:40 PM CRIB PAD MAKER EXAMINATION: US RENAL CLINICAL HISTORY: S72.002A Fracture [...] 8. Calculi: No calculi 9. Other Findings:None [facility]-[id number] Performing Organization Address City/State/Zipcode Phone Number [facility] [address] [place] [address] Urine eosinophils (07/02/2018 12:45 PM CRIB PAD MAKER) Eosinophils, urine NONE [facility] Specimen Urine Performing Organization Address City/[facility] Phone Number [facility] DEPARTMENT OF PATHOLOGY AND [address] [place] [phone] [place] [phone] Sodium level, urine, random (07/02/2018 12:45 PM CRIB PAD MAKER) Sodium, urine, random <20 mEq/L [facility] Specimen Urine Performing Organization Address City/[facility] Phone Number [facility] DEPARTMENT OF PATHOLOGY AND [address] [place] [phone] [address] Protein, urine, random (07/02/2018 12:45 PM CRIB PAD MAKER) Protein, urine random 85 mg/dL [facility] Specimen Urine Performing Organization Address City/[facility] Center[facility] Phone Number [facility] DEPARTMENT OF PATHOLOGY AND [address] [place] [phone] [place] [address] Creatinine level, urine, random (07/02/2018 12:45 PM CRIB PAD MAKER) Creatinine, urine, random 292 mg/dL [facility] Specimen Urine Performing Organization Address City/[facility] [place] Phone Number [facility] DEPARTMENT OF PATHOLOGY AND [address] [place] [phone] Urinalysis, automated with microscopy (07/02/2018 12:45 PM CRIB PAD MAKER) Color, UA Casi [facility] Appearance, UA Hazy [facility] Specific gravity, UA 1.019 1.001 - 1.035 [facility] pH, UA 5.0 5.0 - 8.5 [facility] Protein, UA 1+ (A) Negative [facility] Glucose, UA Negative Negative [facility] Ketones, UA Negative Negative [facility] Bilirubin, UA Negative Negative [facility] Blood, UA Large (A) Negative [facility] Nitrite, UA Negative Negative [facility] Urobilinogen, UA <2.0 <2.0 [facility] Leukocyte esterase, UA Trace (A) Negative [facility] Epithelial cells, UA 2 /HPF [facility] Round epithelial cells, UA 1 0 - 1 /HPF [facility] WBC, UA 24 (H) 0 - 4 /HPF [facility] RBC, UA 160 (H) 0 - 5 /HPF [facility] Bacteria, UA Few None seen [facility] Amorphous crystals Few [facility] Granular casts, UA 6 (H) 0 - 1 /LPF [facility] Hyaline casts, UA 1 /LPF [facility] Yeast, UA None seen [facility] Yeast with pseudohyphae, UA None seen [facility] Specimen Urine Performing Organization Address [facility] [place] Phone Number [facility] DEPARTMENT OF PATHOLOGY AND [address] [place] [phone] [place] [address] Uric acid level (07/02/2018 12:45 PM CRIB PAD MAKER) Uric acid 8.5 (H) 2.4 - 5.7 mg/dL [facility] Specimen Plasma specimen Performing Organization Address [facility] [place] Phone Number [facility] DEPARTMENT OF PATHOLOGY AND [address] [place] [phone] Creatine kinase, total (CPK) (07/02/2018 12:45 PM CRIB PAD MAKER)Only the most recent of2 resultswithin the time period is included. Creatine kinase 1,807 (H) 26 - 192 U/L [facility] Specimen Plasma specimen Performing Organization Address [facility] [place] Phone Number [facility] DEPARTMENT OF PATHOLOGY AND [address] [place] [address] Lactic acid level, SEPSIS - Now and repeat 2x every 3 hours (07/01/2018 1:30 PM CRIB PAD MAKER)Only the most recent of3 resultswithin the time period is included. Lactic acid 2.1 0.5 - 2.2 mmol/L [facility] Specimen Blood Performing Organization Address [facility] [place] Phone Number [facility] DEPARTMENT OF PATHOLOGY AND [address] [place] [phone] [place] [phone] ECG 12 lead (07/01/2018 8:01 AM CRIB PAD MAKER) Ventricular rate 70 [facility] MUSE Atrial rate 441 [facility] QRSD interval 178 [facility] M[facility] QT interval 472 [facility] QTC interval 509 [facility] QRS axis 1 -85 [facility] M[facility] T wave axis 83 [facility] EKG impression Ventricular-paced rhythm-Biventricular [facility] MUSE pacemaker detected-Abnormal ECG-In automated comparison with ECG of 30-JUN-2018 07:47,-No significant change was found- Narrative Performed At Performing Organization Address City/[facility] Centercode Phone Number [facility] MUSE [address] [place] [address] Troponin (07/01/2018 4:41 AM CRIB PAD MAKER) Troponin <0.30 0.00 - 0.30 ng/mL [facility] Comment: 0.30 - 1.49 ng/mlMay indicate increased risk of acute coronary syndrome. >=1.5 ng/mlConsistent with acute myocardial infarction. The diagnostic value of a single normal or non-diagnostic result is questionable.Serial samples at 2-6 hour intervals are required to rule out acute myocardial injury. Specimen Plasma specimen Performing Organization Address City/[facility] Centercode Phone Number [facility] DEPARTMENT OF PATHOLOGY AND [address] [place] [address] Lactic acid level (07/01/2018 4:41 AM CRIB PAD MAKER) Lactic acid 2.7 (H) 0.5 - 2.2 mmol/L [facility] Specimen Plasma specimen Performing Organization Address City/[facility]/Zipcode Phone Number [facility] DEPARTMENT OF PATHOLOGY AND [address] [place] [address] [address] Ionized calcium (07/01/2018 4:41 AM CRIB PAD MAKER) pH 7.39 [facility] Ionized calcium 1.11 1.11 - 1.32 mmol/L [facility] Specimen Plasma specimen Performing Organization Address [facility]/Zipcode Phone Number [facility] DEPARTMENT OF PATHOLOGY AND [address] [place] [phone] [place] [address] Comprehensive metabolic panel (07/01/2018 4:41 AM CRIB PAD MAKER)Only the most recent of2 resultswithin the time period is included. Sodium 135 135 - 148 mEq/L [facility] Potassium 4.1 3.5 - 5.0 mEq/L [facility] Chloride 95 (L) 98 - 112 mEq/L [facility] CO2 27 24 - 31 mEq/L [facility] Anion gap 13@ANIO 7 - 15 mEq/L [facility] BUN 25 (H) 8 - 23 mg/dL [facility] Creatinine 1.61 (H) 0.50 - 0.90 mg/dL [facility] Glucose 131 (H) 65 - 99 mg/dL [facility] Calcium 9.4 8.8 - 10.2 mg/dL [facility] Protein 6.7 6.3 - 8.3 g/dL [facility] Comment: HOSPITAL 4.6-7.0 g/dL 1 week 4.4-7.6 g/dL 7 months-1year5.1-7.3 g/dL 1-2 years5.6-7.5 g/dL >3 years6.0-8.0 g/dL 18-150 6.3-8.3 g/dL Albumin 3.2 (L) 3.5 - 5.0 g/dL [facility] A/G ratio 0.9 0.7 - 3.8 [facility] Alkaline phosphatase 80 35 - 104 U/L [facility] AST 42 (H) 10 - 35 U/L [facility] ALT 21 5 - 50 U/L [facility] Total bilirubin 0.5 0.0 - 1.2 mg/dL [facility] Specimen Plasma specimen Performing Organization Address City/State/Zipcode Phone Number [facility] DEPARTMENT OF PATHOLOGY AND [address] [place] [address] GENOMIC MEDICINE [facility] [address] [place] [address] XR Pelvis 1 Or 2 Vw (06/30/2018 12:36 PM CRIB PAD MAKER)Only the most recent of2 resultswithin the time period is included. Narrative Performed At EXAMINATION:XR PELVIS 1 OR 2 VW [facility] CLINICAL HISTORY:post op COMPARISON:06/29/2018 IMPRESSION: Interval placement of intramedullary nail in the left femur across the intertrochanteric fracture. There is mild persistent fracture displacement. No dislocation. Marked hip arthrosis. [facility]-[id number] Procedure Note Interface, Radiology Results Incoming - 06/30/2018 12:42 PM CRIB PAD MAKER EXAMINATION: XR PELVIS 1 OR 2 VW CLINICAL HISTORY: post op COMPARISON: 06/29/2018 IMPRESSION: Interval placement of intramedullary nail in the left femur across the intertrochanteric fracture. There is mild persistent fracture displacement. No dislocation. Marked hip arthrosis. [facility]-[id number] Performing Organization Address [facility] [place] Phone Number [facility] [address] [place] [address] [place] > I Hour (06/30/2018 11:14 AM CRIB PAD MAKER) Narrative Performed At EXAMINATION:OR [place] >1 HOUR [facility] C-arm fluoroscopy was requested in [place]. Location: [id number] Procedure: FEMUR IM NAIL Start: 936 End: 1113 Fluoro Time: 2M15S Dose: 22.41 mGy Tech: [id number] IMPRESSION: Separate operative report will be issued by the physician performing the procedure. [id number] Procedure Note Interface, Radiology Results Incoming - 07/02/2018 4:49 PM CRIB PAD MAKER EXAMINATION: OR [place] > 1 HOUR C-arm fluoroscopy was requested in [place]. Location: [facility] Procedure: FEMUR IM NAIL Start: 936 End: 1113 Fluoro Time: 2M15S Dose: 22.41 mGy Tech: [email or web address] IMPRESSION: Separate operative report will be issued by the physician performing the procedure. [id number] Performing Organization Address [facility] [place] Phone Number [facility] [address] [place] [address] ECG Pre/Post Op (06/30/2018 7:47 AM CRIB PAD MAKER) Ventricular rate 70 [facility]USE Atrial rate 76 [facility] QRSD interval 176 [facility] QT interval 492 [facility] QTC interval 531 [facility] QRS axis 1 -79 [facility] T wave axis 96 [facility] EKG impression Ventricular-paced rhythm-Biventricular [facility] MUSE pacemaker detected-Abnormal ECG-In automated comparison with ECG of 11-MAR-2015 07:51,-No significant change was found- Narrative Performed At Performing Organization Address City/State/Zipcode Phone Number [facility] MUSE [address] [place] [address] Partial thromboplastin time, activated (06/30/2018 5:45 AM CRIB PAD MAKER)Only the most recent of2 resultswithin the time period is included. PTT 32.2 23.0 - 36.0 sec [facility] Comment: PTT therapeutic range for unfractionated heparin is 61.0-112.0 seconds which corresponds to Anti-Xa 0.3-0.7 U/ml. Specimen Blood Performing Organization Address City/[facility] Centercode Phone Number [facility] DEPARTMENT OF PATHOLOGY AND [address] [place] [phone] [place] [address] Prothrombin time with INR (06/30/2018 5:45 AM CRIB PAD MAKER)Only the most recent of2 resultswithin the time period is included. Prothrombin time 15.8 (H) 11.5 - 14.5 sec [facility] INR 1.3 [facility] Comment: [facility] The International Normalized Ratio (INR) is a therapeutic monitoring tool for patients who are stable on oral anticoagulant therapy. An INR of 2.0-3.0 is suggested for deep vein thrombosis/pulmonary embolism. Specimen Blood Performing Organization Address [facility] [place] Phone Number [facility] DEPARTMENT OF PATHOLOGY AND [address] [place] [phone] [place] [phone] PTH-related peptide (06/30/2018 12:45 AM CRIB PAD MAKER) PTH-related peptide 0.2 <2.0 pmol/L [facility] Comment: - [facility] ADDITIONAL INFORMATION Drive This test was developed and its performance characteristics determined by [facility] in a manner consistent with CLIA requirements. This test has not been cleared or approved by the U.S. Food and Drug Administration. Test Performed by: [facility] - [facility] [address] [place] [address] Specimen Blood Performing Organization Address City/[facility]ode Phone Number [facility] DEPARTMENT OF PATHOLOGY [address] [place] [address] AND GENOMIC MEDICINE [facility] - [address] [address] [facility] Vitamin D 25 hydroxy level (06/29/2018 10:06 PM CRIB PAD MAKER) Vitamin D, 25-hydroxy 32.1 30.0 - 150.0 [facility] Comment: ng/mL HOSPITAL This assay [...] Blood Performing Organization Address City/State/Zipcode Phone Number [facility] DEPARTMENT OF PATHOLOGY AND [address] [place] [address] [facility] [address] [place] [address] CT Pelvis Wo Contrast (06/29/2018 9:26 PM CRIB PAD MAKER) Narrative Performed At EXAMINATION:CT PELVIS WO CONTRAST [...] large bowel. Atherosclerotic vascular calcifications are seen. [facility]-[id number] Procedure Note Interface, Radiology Results Incoming - 06/29/2018 9:38 PM CRIB PAD MAKER EXAMINATION: CT PELVIS WO CONTRAST CLINICAL HISTORY: [...] large bowel. Atherosclerotic vascular calcifications are seen. [facility]-[id number] Performing Organization Address City/State/Zipcode Phone Number [facility] [address] [place] [phone] Type and screen (06/29/2018 8:19 PM CRIB PAD MAKER) ABO grouping O [facility] Rh type POS [facility] Antibody screen (gel) NEG [facility] Specimen Blood Performing Organization Address City/State/Zipcode Phone Number [facility] DEPARTMENT OF PATHOLOGY AND [address] [place] [address] GENOMIC MEDICINE [address] [address] XR Hips Bilateral Ap Lateral W Ap Pelvis (06/29/2018 8:18 PM CRIB PAD MAKER) Narrative Performed At EXAM:XR PELVIS 1 OR [...] for pelvic fracture, CT may be obtained. [facility]-[id number] Procedure Note Interface, Radiology Results Incoming - 06/29/2018 8:23 PM CRIB PAD MAKER EXAM: XR PELVIS 1 OR 2 VW, [...] for pelvic fracture, CT may be obtained. [facility]-[id number] Performing Organization Address City/State/Zipcode Phone Number [facility] [address] [place] [address] after 08/18/2017 Insurance Payer Benefit Plan / Group Subscriber ID Type Phone Address MEDICARE MEDICARE PART A AND B xxxxxxxxxxx Medicare [place], [place] AETNA AETNA [facility] xxxxxxxxx Indemnity Advance Directives Patient has advance care planning documents, and code status on file. For more information, please contact:Milind Vences[address] [place] [address] Code Status Date Activated Date Inactivated Comments DNR 06/30/2018 5:18 AM 07/09/2018 8:13 PM Code Status decision reached by: Patient
[2018-08-19] MEDS ORDERED: ONDANSETRON 4 MG/2 ML VIAL ONE (13:51)
--- NOTE | 2018-08-19 13:56 | RAD REPORT ---
EXAM DESCRIPTION: RAD - Pelvis - 08/19/2018 1:47 pm CLINICAL HISTORY: Fall, hip pain COMPARISON: July 2018 left hip TECHNIQUE: AP imaging of the pelvis was obtained. FINDINGS: Lower lumbar degenerative change present partially imaged. No fracture of the bony pelvis seen. Patient has prominent degenerative changes at the right hip joint with no proximal right femur fracture identifiable. Hardware is in place from prior left femur fracture repair. No acute findings in the proximal left femur identifiable. IMPRESSION: Degenerative and postsurgical changes to the pelvis and hip joints as detailed. No acute findings confirmed.
--- NOTE | 2018-08-19 13:57 | RAD REPORT ---
EXAM DESCRIPTION: RAD - Chest Single View - 08/19/2018 1:47 pm CLINICAL HISTORY: Fall, pain COMPARISON: August 2017 TECHNIQUE: AP portable chest image was obtained 1343 hours . FINDINGS: No peripheral mass consolidation. Interstitial markings are prominent but not clearly diff erent from comparison. Minimal interstitial edema or infiltrate could be masked. Heart and vasculatur e are normal. No measurable pleural effusion and no pneumothorax. No acute bony abnormality seen. No acute aortic findings suspected. IMPRESSION: No acute cardiopulmonary process. Chronic interstitial lung disease is present not substantially different from comparison.
--- NOTE | 2018-08-19 14:12 | RAD REPORT ---
EXAM DESCRIPTION: RAD - Femur Left - 08/19/2018 1:47 pm CLINICAL HISTORY: Fall, hip and leg pain COMPARISON: July 2018 FINDINGS: No fracture is identified. There is no dislocation or periosteal reaction noted. No acute or suspicious bony finding. Postsurgical changes are present in the femur are not clearly different from prior imaging. No foreign body or significant soft tissue finding. IMPRESSION: Degenerative and postsurgical changes to the femur similar to comparison. No acute findings seen.
[2018-08-19 14:14] LABS: Absolute Lymphocytes (CBC) 2.9 K/uL (0.7-4.9); Absolute Monocytes 0.7 K/uL (0.1-1.3); Absolute Neutrophil 6.5 K/uL (1.8-8.0); Basophils % 0.9 % (0-1.3); Eosinophils % 0.9 % (0-4.4); Lymphocytes % 28.3 % (15.3-44.8); MPV 8.3 fL (7.6-11.3); Monocytes % 6.6 % (3.3-12.3); RBC Red Blood Cell Count 4.24 M/uL (3.86-4.86)
--- NOTE | 2018-08-19 14:35 | RAD REPORT ---
EXAM DESCRIPTION: CT - Head C Spine Cap Wo Con - 08/19/2018 2:15 pm CLINICAL HISTORY: Fall, head, neck, chest and abdomen pain, history of left femur fracture repair 2 months earlier COMPARISON: CT head November 2017, pelvis and left femur films August 19, 2018 TECHNIQUE: Axial [address] head images were obtained. Axial [address] cervical spine images were obtain ed with sagittal and coronal reconstruction images reviewed. Axial 5 mm images of the chest, abdomen and pelvis were obtained. All CT scans are performed using dose optimization technique as appropriate and may include automated exposure control or mA/KV adjustment according to patient size. FINDINGS: No intracranial hemorrhage, mass or edema. No midline shift or abnormal fluid collection. Mastoid air cells and paranasal sinuses are clear. No skull fracture. Atrophy and chronic ischemic c hanges match the comparison. Cervical bodies are normal in height and alignment. No fracture or acute bone finding.No significant disc space narrowing. Endplate spurring seen at C5 and C6. Disc bulge and endplate spurring changes s een C4-5 with spurring C6-7.No prevertebral soft tissue thickening or paraspinal mass.Central canal d etail is inherently limited on CT imaging. CT chest shows no pneumothorax, pulmonary contusion or pleural fluid collection. No mediastinal hem atoma and the aorta and pulmonary arteries are unremarkable. No chest will mass or abnormal axillary finding. No displaced rib fracture or other significant bony finding. CT abdomen and pelvis show no injury to solid abdominal viscera. Gallbladder and biliary tree are unr emarkable. No bowel injury or significant finding. No free air, free fluid or abnormal stranding. No hernia, mass or bulky lymphadenopathy. No urinary bladder abnormality. Thoracic and lumbar degenerative changes are present along with disc degenerative change. No acute fi nding. No fracture of the bony pelvis seen. Hardware is in place from left femur fracture repair. Fra cture lines are still present with margins indistinct. Bony bridging along the fracture planes is inc omplete. Findings are all well within normal limits for a 2-month-old injury IMPRESSION: No hemorrhage or acute intracranial finding. Atrophy and chronic ischemic change match c omparison Cervical spine degenerative change with no acute finding. No significant CT Chest finding. No significant CT Abdomen and Pelvis finding. No pelvic fracture. Left femur fracture repairs are as expected for a 2-month-old injury.
[2018-08-19 14:42] LABS: Potassium 3.1 mmol/L (3.5-5.1)
[2018-08-19] MEDS ORDERED: FENTANYL CITR 100 MCG/2 ML ONE (14:44)
[2018-08-19] MEDS ORDERED: NA CHLORIDE 0.9% 250 ML ONE (15:09)
--- NOTE | 2018-08-19 15:30 | ER ---
Nurse's Notes [facility] Name: Coco Melton Age: 83 yrs Sex: Female : 1935 Arrival Date: 08/19/2018 Time: 13:17 Bed 23 Private MD: Diagnosis: Fall on same level from slipping, tripping and stumbling;Pain in left hip-from fall;Low back pain-from fall Presentation: 08/19 13:18 Presenting complaint: EMS states: pt fell at home. possible hip fracture on the L side. ca1 Has a Hx of L femur fracture 2 months ago. Transition of care: patient was not received from another setting of care. Onset of symptoms was August 19, 2018. Risk Assessment: Do you want to hurt yourself or someone else? Patient reports desire/thoughts of hurting themselves or someone else. Provider notified. Initial Sepsis Screen: Does the patient meet any 2 criteria? No. Patient's initial sepsis screen is negative. Does the patient have a suspected source of infection? No. Patient's initial sepsis screen is negative. Care prior to arrival: Medication(s) given: Fentanyl Nasal. 13:18 Method Of Arrival: EMS: [facility] ca1 13:18 Acuity: SIMONE 3 ca1 Triage Assessment: 13:18 General: Appears in no apparent distress. uncomfortable, Behavior is calm, cooperative, ca1 appropriate for age. Pain: Complains of pain in left hip Pain radiates to back and left leg Pain currently is 10 out of 10 on a pain scale. Pain began 1 hour ago. Historical: - Allergies: 13:23 Codeine; ca1 - PMHx: 13:23 Anxiety; Arthritis; Hypertension; Hypothyroidism; neuropathy; ca1 - PSHx: 13:23 pacemaker x2; Appendectomy; D \T\ C; Hysterectomy; leg veins stripped; Cholecystectomy; ca1 hemorroidectomy; cataracts; - Immunization history:: Flu vaccine is up to date. - Social history:: Smoking status: Patient/guardian denies using tobacco. - Ebola Screening: : No symptoms or risks identified at this time. Screenin:20 Abuse screen: Denies threats or abuse. Denies injuries from another. Nutritional ca1 screening: No deficits noted. Tuberculosis screening: No symptoms or risk factors identified. Fall Risk Fall in past 12 months (25 points). Secondary diagnosis (15 points) impaired mobility, IV access (20 points). Ambulatory Aid- Crutches/Cane/Walker (15 pts). Assessment: 13:20 General: Appears in no apparent distress. uncomfortable, Behavior is calm, cooperative, ca1 appropriate for age. Pain: Complains of pain in pelvis and left hip Pain radiates to left leg and back Pain currently is 10 out of 10 on a pain scale. Pain began 1 hour ago. Neuro: Level of Consciousness is awake, alert, obeys commands, Oriented to person, place, time, situation. Cardiovascular: Heart tones S1 S2 present Capillary refill < 3 seconds Patient's skin is warm and dry. Rhythm is Respiratory: Airway is patent Respiratory effort is even, unlabored, Respiratory pattern is regular, symmetrical, Breath sounds are clear bilaterally. GI: Abdomen is round non-distended, Bowel sounds present X 4 quads. Abd is soft and non tender X 4 quads. : No deficits noted. No signs and/or symptoms were reported regarding the genitourinary system. EENT: No deficits noted. No signs and/or symptoms were reported regarding the EENT system. Derm: Skin is fragile, is thin, Skin is pink, warm \T\ dry. Musculoskeletal: Circulation, motion, and sensation intact. Capillary refill < 3 seconds, Range of motion: limited in left hip. 14:15 Reassessment: Patient appears in no apparent distress at this time. Patient and/or ca1 family updated on plan of care and expected duration. Pain level reassessed. Patient is alert, oriented x 3, equal unlabored respirations, skin warm/dry/pink. 15:30 Reassessment: Pt ambulated to restroom with walker. Reports of little dizziness when ca1 back on bed. Pt tolerated well. 15:33 Reassessment: Patient appears in no apparent distress at this time. Patient and/or ca1 family updated on plan of care and expected duration. Pain level reassessed. Patient is alert, oriented x 3, equal unlabored respirations, skin warm/dry/pink. Vital Signs: 13:18 BP 149 / 65; Pulse 70; Resp 18 S; Temp 97.9; Pulse Ox 98% on R/A; Weight 95.25 kg; ca1 Height 5 ft. 8 in. (172.72 cm); Pain 10/10; 14:33 BP 149 / 73; Pulse 87; Resp 18 S; Pulse Ox 99% on R/A; ca1 15:00 BP 155 / 66; Pulse 70; Resp 17 S; Pulse Ox 99% on R/A; ca1 15:33 BP 142 / 69; Pulse 71; Resp 18 S; Pulse Ox 99% ; ca1 13:18 Body Mass Index 31.93 (95.25 kg, 172.72 cm) ca1 ED Course: 13:17 Patient arrived in ED. ca1 13:18 Arm band placed on right wrist. ca1 13:19 Rafita Chavarria PA is PHCP. cp 13:19 Rafita Cardoso MD is Attending Physician. cp 13:20 Patient has correct armband on for positive identification. Placed in gown. Bed in low ca1 position. Call light in reach. Side rails up X 1. Pulse ox on. NIBP on. Warm blanket given. 13:21 Triage completed. ca1 13:28 Debby Head, RN is Primary Nurse. ca1 13:42 Radiology exam delayed due to pt having xrays,ekg, \T\ iv started \T\ this time. bq 13:48 XRAY Pelvis In Process Unspecified. EDMS 13:48 XRAY Chest (1 view) In Process Unspecified. EDMS 13:48 XRAY Femur LEFT In Process Unspecified. EDMS 14:15 CT Traumagram (Head C Spine CAP wo con) In Process Unspecified. EDMS 15:53 No provider procedures requiring assistance completed. IV discontinued, intact, ca1 bleeding controlled, No redness/swelling at site. Pressure dressing applied. Administered Medications: 14:25 Drug: Zofran 4 mg Route: IVP; Site: right antecubital; ca1 15:04 Follow up: Response: No adverse reaction; Nausea is decreased ca1 15:30 Follow up: Response: No adverse reaction; Nausea is decreased ca1 14:30 Drug: fentaNYL (PF) 25 mcg Route: IVP; Site: right antecubital; ca1 15:41 Follow up: Response: No adverse reaction; Pain is decreased ca1 14:59 Drug: NS 0.9% 250 ml Route: IV; Rate: bolus; Site: right antecubital; ca1 15:00 Follow up: IV Status: Completed infusion ca1 15:03 Not Given (Duplicate Order): Zofran 4 mg PO once ca1 15:37 Not Given (Patient Refused): fentaNYL (PF) 25 mcg IVP once ca1 Outcome: 15:29 Discharge ordered by . my 15:53 Discharged to home via wheelchair. ca1 15:53 Condition: stable 15:53 Discharge instructions given to patient, family, Instructed on discharge instructions, follow up and referral plans. medication usage, Demonstrated understanding of instructions, follow-up care, medications, Prescriptions given X 1. 15:54 Patient left the ED. ca1 Signatures: Dispatcher [employer] EDMS Edna Norwood Corey, PA PA cp Acob, Cheryl RN RN ca1 Corrections: (The following items were deleted from the chart) 15:03 13:53 Zofran 4 mg PO ca1 ca1
--- NOTE | 2018-08-19 15:30 | EDPHYS ---
Physician Documentation [facility] Name: Coco Melton Age: 83 yrs Sex: Female : 1935 Arrival Date: 08/19/2018 Time: 13:17 Bed 23 Private MD: ED Physician Rafita Cardoso HPI: 08/19 13:30 This 83 yrs old Female presents to ER via EMS with complaints of Hip Pain. cp 13:30 Details of fall: The patient fell from an upright position, while standing. cp 13:30 Onset: The symptoms/episode began/occurred just prior to arrival. Associated injuries: cp The patient sustained injury to the low back, pain, pelvis and left hip, painful injury. Historical: - Allergies: 13:23 Codeine; ca1 - PMHx: 13:23 Anxiety; Arthritis; Hypertension; Hypothyroidism; neuropathy; ca1 - PSHx: 13:23 pacemaker x2; Appendectomy; D \T\ C; Hysterectomy; leg veins stripped; Cholecystectomy; ca1 hemorroidectomy; cataracts; - Immunization history:: Flu vaccine is up to date. - Social history:: Smoking status: Patient/guardian denies using tobacco. - Ebola Screening: : No symptoms or risks identified at this time. ROS: 13:35 Constitutional: Negative for body aches, chills, fever, poor PO intake. cp 13:35 Eyes: Negative for injury, pain, redness, and discharge. cp 13:35 ENT: Negative for drainage from ear(s), ear pain, sore throat, difficulty swallowing, difficulty handling secretions. 13:35 Cardiovascular: Negative for chest pain, edema, palpitations. 13:35 Respiratory: Negative for cough, shortness of breath, wheezing. 13:35 Abdomen/GI: Negative for abdominal pain, nausea, vomiting, and diarrhea, black/tarry stool, rectal bleeding. 13:35 Back: Positive for pain at rest, pain with movement. 13:35 MS/extremity: Positive for pain, tenderness, of the pelvis and left hip, Negative for deformity, paresthesias. 13:35 Neuro: Negative for altered mental status, headache, loss of consciousness, syncope, weakness. 13:35 All other systems are negative. Exam: 13:42 Constitutional: The patient appears in no acute distress, alert, awake, cp non-diaphoretic, non-toxic, well developed, well nourished. 13:42 Head/Face: Normocephalic, atraumatic. cp 13:42 Eyes: Periorbital structures: appear normal, Pupils: equal, round, and reactive to light and accomodation, Extraocular movements: intact throughout, Lids and lashes: appear normal, bilaterally. 13:42 ENT: External ear(s): are unremarkable, Ear canal(s): are normal, clear, TM's: bulging, is not appreciated, bilaterally, dullness, bilaterally, erythema, is not appreciated, bilaterally, Nose: is normal, Mouth: Lips: moist, Oral mucosa: moist, Posterior pharynx: Airway: no evidence of obstruction, patent. 13:42 Neck: C-spine: vertebral tenderness, is not appreciated, crepitus, is not appreciated. 13:42 Chest/axilla: Inspection: normal, Palpation: crepitus, is not appreciated, tenderness, is not appreciated. 13:42 Cardiovascular: Rate: normal, Rhythm: regular, Edema: is not appreciated, JVD: is not appreciated. 13:42 Respiratory: the patient does not display signs of respiratory distress, Respirations: normal, no use of accessory muscles, no retractions, no splinting, no tachypnea, labored breathing, is not present, Breath sounds: are clear throughout, no decreased breath sounds, no stridor, no wheezing. 13:42 Abdomen/GI: Inspection: abdomen appears normal, Bowel sounds: active, all quadrants, Palpation: abdomen is soft and non-tender, in all quadrants, voluntary guarding, is not appreciated, involuntary guarding, is not appreciated. 13:42 Back: pain, that is moderate. 13:42 Musculoskeletal/extremity: Extremities: grossly normal except: noted in the pelvis and left hip: pain, tenderness. 13:42 Neuro: Orientation: to person, place \T\ time. Mentation: is normal, Motor: moves all fours, strength is normal, Sensation: is normal. Vital Signs: 13:18 BP 149 / 65; Pulse 70; Resp 18 S; Temp 97.9; Pulse Ox 98% on R/A; Weight 95.25 kg; ca1 Height 5 ft. 8 in. (172.72 cm); Pain 10/10; 14:33 BP 149 / 73; Pulse 87; Resp 18 S; Pulse Ox 99% on R/A; ca1 15:00 BP 155 / 66; Pulse 70; Resp 17 S; Pulse Ox 99% on R/A; ca1 15:33 BP 142 / 69; Pulse 71; Resp 18 S; Pulse Ox 99% ; ca1 13:18 Body Mass Index 31.93 (95.25 kg, 172.72 cm) ca1 MDM: 13:20 Patient medically screened. mary 13:30 Differential diagnosis: closed head injury, contusion, fracture, laceration, multiple cp trauma. 15:28 Data reviewed: vital signs, nurses notes, lab test result(s), radiologic studies, CT cp scan, plain films. 15:28 Test interpretation: by ED physician or midlevel provider: plain radiologic studies. cp Counseling: I had a detailed discussion with the patient and/or guardian regarding: the historical points, exam findings, and any diagnostic results supporting the discharge/admit diagnosis, lab results, radiology results, to return to the emergency department if symptoms worsen or persist or if there are any questions or concerns that arise at home. Response to treatment: the patient's symptoms have markedly improved after treatment, and as a result, I will discharge patient. 15:28 ED course: VSS. Radiology studies negative for acute fracture/injury. Patient observed cp ambulating in ED with walker. Will discharge to home for continued monitoring. 08/19 13:24 Order name: Basic Metabolic Panel; Complete Time: 14:45 cp 08/19 13:24 Order name: CBC with Diff; Complete Time: 14:45 08/19 13:24 Order name: CT Traumagram (Head C Spine CAP wo con); Complete Time: 14:45 08/19 13:24 Order name: Creatinine for Radiology; Complete Time: 14:48 08/19 14:48 Interpretation: Reviewed. 08/19 13:24 Order name: Type And Screen cp 08/19 13:24 Order name: XRAY Pelvis; Complete Time: 14:45 cp 08/19 13:24 Order name: XRAY Chest (1 view); Complete Time: 14:45 cp 08/19 13:24 Order name: XRAY Femur LEFT; Complete Time: 14:45 08/19 13:24 Order name: EKG; Complete Time: 13:24 cp 08/19 13:24 Order name: Labs collected and sent; Complete Time: 15:01 08/19 13:24 Order name: EKG - Nurse/Tech; Complete Time: 13:53 cp 08/19 14:53 Order name: Misc. Order: ambulate patient; Complete Time: 15:36 cp Administered Medications: 14:25 Drug: Zofran 4 mg Route: IVP; Site: right antecubital; ca1 15:04 Follow up: Response: No adverse reaction; Nausea is decreased ca1 15:30 Follow up: Response: No adverse reaction; Nausea is decreased ca1 14:30 Drug: fentaNYL (PF) 25 mcg Route: IVP; Site: right antecubital; ca1 15:41 Follow up: Response: No adverse reaction; Pain is decreased ca1 14:59 Drug: NS 0.9% 250 ml Route: IV; Rate: bolus; Site: right antecubital; ca1 15:00 Follow up: IV Status: Completed infusion ca1 15:03 Not Given (Duplicate Order): Zofran 4 mg PO once ca1 15:37 Not Given (Patient Refused): fentaNYL (PF) 25 mcg IVP once ca1 Disposition: 08/20 08:58 Co-signature as Attending Physician, Rafita Cardoso MD I agree with the assessment and [facility] plan of care. Disposition: 08/19/18 15:29 Discharged to Home. Impression: Fall on same level from slipping, tripping and stumbling, Pain in left hip - from fall, Low back pain - from fall. - Condition is Stable. - Discharge Instructions: Back Pain, Adult, Fall Prevention in the Home, Hip Pain. - Prescriptions for Tramadol 50 mg Oral Tablet - take 1 tablet by ORAL route every 8 hours As needed as needed; 15 tablet. - Medication Reconciliation Form, Thank You Letter, Antibiotic Education, Prescription Opioid Use form. - Follow up: Private Physician; When: 2 - 3 days; Reason: Recheck today's complaints. - Problem is new. - Symptoms have improved. Signatures: Dispatcher [employer] Rafita Colon MD MD cha Page, Corey, PA PA cp Acob, Cheryl, RN RN ca1 Corrections: (The following items were deleted from the chart) 08/19 15:54 15:29 08/19/2018 15:29 Discharged to Home. Impression: Fall on same level from ca1 slipping, tripping and stumbling; Pain in left hip - from fall; Low back pain - from fall. Condition is Stable. Forms are Medication Reconciliation Form, Thank You Letter, Antibiotic Education, Prescription Opioid Use. Follow up: Private Physician; When: 2 - 3 days; Reason: Recheck today's complaints. Problem is new. Symptoms have improved. cp 08/20 06:08/19 15:42 Constitutional: The patient appears in no acute distress, alert, awake, cp non-diaphoretic, non-toxic, well developed, well nourished, cp 08/20 06:08/19 15:42 Head/Face: Normocephalic, atraumatic. cp cp 08/20 06:08/19 15:42 Eyes: Periorbital structures: appear normal, Pupils: equal, round, and cp reactive to light and accomodation, Extraocular movements: intact throughout, Conjunctiva: normal, no exudate, no injection, Lids and lashes: appear normal, bilaterally, cp 08/20 06:08/19 15:42 ENT: External ear(s): are unremarkable, Ear canal(s): are normal, clear, cp TM's: bulging, is not appreciated, bilaterally, dullness, bilaterally, erythema, is not appreciated, bilaterally, Nose: is normal, Mouth: Lips: moist, Oral mucosa: moist, Posterior pharynx: Airway: no evidence of obstruction, patent, cp 08/20 06:08/19 15:42 Neck: C-spine: vertebral tenderness, is not appreciated, crepitus, is not cp appreciated, cp 08/20 06:08/19 15:42 Chest/axilla: Inspection: normal, Palpation: crepitus, is not appreciated, cp tenderness, is not appreciated, cp 08/20 06:08/19 15:42 Cardiovascular: Rate: normal, Rhythm: regular, Edema: is not appreciated, cp JVD: is not appreciated, cp 08/20 06:08/19 15:42 Respiratory: the patient does not display signs of respiratory distress, cp Respirations: normal, no use of accessory muscles, no retractions, no splinting, no tachypnea, labored breathing, is not present, Breath sounds: are clear throughout, no decreased breath sounds, no stridor, no wheezing, cp 08/20 06:08/19 15:42 Abdomen/GI: Inspection: abdomen appears normal, Palpation: abdomen is soft cp and non-tender, in all quadrants, voluntary guarding, is not appreciated, involuntary guarding, is not appreciated, cp 08/20 07:24 08/19 15:42 Back: pain, that is moderate, ROM is painful, cp cp 08/20 07:24 08/19 15:42 Musculoskeletal/extremity: Extremities: grossly normal except: noted in the cp pelvis and left hip: pain, tenderness, cp 08/20 06:08/19 15:42 Neuro: Orientation: to person, place \T\ time. Mentation: is normal, Motor: cp moves all fours, strength is normal, Sensation: is normal, cp
[2018-08-19 16:34] VITALS: TEMP 97.9
[2018-08-19 16:36] VITALS: O2SAT 99
[2018-08-19 16:38] VITALS: BP 142/69
--- NOTE | 2018-08-20 05:53 | EKG ---
Test Date: 2018-08-19 Test Time: 13:42:50 Manager Fund: BLAKE MEASUREMENT RESULTS: Intervals: Rate: 70 GA: QRSD: 162 QT: 446 QTc: 481 [place]: P: GA: QRS: -72 T: 100 INTERPRETIVE STATEMENTS: Electronic ventricular pacemaker Compared to ECG 04/30/2015 11:59:59 No significant changes Electronically Signed On 08-20-18 05:52:52 CDT by Jesse Bentley
== END 2018-08-19 15:54 | disposition home or self-care (01) ==
LOC: ER 13:09
DX: M25.552 Pain in left hip (principal); W01.0XXA Fall on same level from slipping, tripping and stumbling without subsequent striking against object, initial encounter; Y93.89 Activity, other specified; Y92.9 Unspecified place or not applicable; Z88.5 Allergy status to narcotic agent; Z95.0 Presence of cardiac pacemaker; I10 Essential (primary) hypertension
CPT/HCPCS: 93005; 85025; 80048; 36415; 86900; 86850; 86901; 70450; 71250; 72125; 71045; 72170; 73552; 96375; 96374; 99284; J3010; J2405

== ENCOUNTER 2019-03-10 16:13 | Emergency (ER) | payer OTHER ==
[2019-03-10 17:46] LABS: Absolute Lymphocytes (CBC) 1.6 K/uL (0.7-4.9); Basophils % 0.8 % (0-1.3); Hematocrit 35.9 % (36.0-45.0); Lymphocytes % 17.5 % (15.3-44.8); MPV 8.2 fL (7.6-11.3); RBC Red Blood Cell Count 3.62 M/uL (3.86-4.86)
[2019-03-10 18:43] LABS: Albumin 3.2 g/dL (3.4-5.0); Bilirubin Total 0.4 mg/dL (0.2-1.0); Potassium 4.5 mmol/L (3.5-5.1); Protein, Total 7.7 g/dL (6.4-8.2)
[2019-03-10] MEDS ORDERED: FUROSEMIDE 20 MG/ 2ML VIAL ONE (18:57)
[2019-03-10] MEDS ORDERED: CLINDAMYCIN 600MG/D5W 600 MG/50 ML BAG IV ONE (18:58)
--- NOTE | 2019-03-10 19:36 | EDPHYS ---
Physician Documentation [facility] Name: Coco Melton Age: 84 yrs Sex: Female : 1935 Arrival Date: 03/10/2019 Time: 16:17 Bed 20 Private MD: Michael Albright ED Physician Jorge Myers HPI: 03/10 16:50 This 84 yrs old Female presents to ER via Ambulatory with complaints of jmm Cellulitis. 16:50 The patient presents with pain, that is acute. Onset: The symptoms/episode jmm began/occurred gradually, 3 month(s) ago. Modifying factors: The symptoms are alleviated by nothing. the symptoms are aggravated by nothing. Associated signs and symptoms: Pertinent positives: fever, swelling, warmth. This is an 84 year old female with a history of htn, neuropathy, that presents to the ED with swelling and redness to her lower legs bialterally. Symptoms worsened 2 week ago. Patient recently finished a course of cephalexin without relief. Patient also complains of subjective fever and chills. . Historical: - Allergies: 16:20 Codeine; la1 - PMHx: 16:20 Anxiety; Arthritis; Hypertension; Hypothyroidism; neuropathy; la1 - Immunization history:: Adult Immunizations up to date. - Social history:: Smoking status: Patient/guardian denies using tobacco. - Ebola Screening: : No symptoms or risks identified at this time. ROS: 16:50 Eyes: Negative for injury, pain, redness, and discharge, Cardiovascular: Negative for jmm chest pain, palpitations, and edema, Respiratory: Negative for shortness of breath, cough, wheezing, and pleuritic chest pain. 16:50 Abdomen/GI: Negative for abdominal pain, nausea, vomiting, diarrhea, and constipation. 16:50 Constitutional: Positive for body aches, chills, fever. 16:50 MS/extremity: Positive for erythema, pain, swelling, tenderness. 16:50 Skin: Positive for erythema. 16:50 All other systems are negative. Exam: 16:50 Constitutional: This is a well developed, well nourished patient who is awake, alert, jmm and in no acute distress. Head/Face: atraumatic. Eyes: EOMI, no conjunctival erythema appreciated ENT: Moist Mucus Membranes Neck: Trachea midline, Supple Chest/axilla: Normal chest wall appearance and motion. Cardiovascular: Regular rate and rhythm. No edema appreciated Respiratory: Normal respirations, no respiratory distress appreciated Abdomen/GI: Non distended, soft Back: Normal ROM 16:50 Skin: erythema noted to the lower extremities with induration and scabbing. 16:50 Neuro: Orientation: is normal, Mentation: is normal, Memory: is normal. 16:50 Psych: Behavior/mood is pleasant, cooperative. Vital Signs: 16:20 BP 155 / 65; Pulse 70; Resp 16; Temp 98.1; Pulse Ox 100% on R/A; Weight 95.25 kg; la1 Height 5 ft. 9 in. (175.26 cm); 17:30 BP 139 / 57; Pulse 69; Resp 18; Pulse Ox 99% on R/A; em 19:30 BP 154 / 90; Pulse 70; Resp 18 S; Temp 98.6(O); Pulse Ox 100% on R/A; cc3 16:20 Body Mass Index 31.01 (95.25 kg, 175.26 cm) la1 MDM: 16:31 Patient medically screened. [facility] 19:32 Data reviewed: vital signs, nurses notes. Counseling: I had a detailed discussion with [facility] the patient and/or guardian regarding: the historical points, exam findings, and any diagnostic results supporting the discharge/admit diagnosis, lab results, the need for outpatient follow up, to return to the emergency department if symptoms worsen or persist or if there are any questions or concerns that arise at home. ED course: Dr. Myers visited with the patient. After a discussion with the patient and the family, recommended IV clindamycin in the ED with rx for home. Also advised the patient to resume lasix for 3 days. Family were given strict return precautions. Family understood and agrees with the plan of care. . 03/10 16:50 Order name: CBC with Diff; Complete Time: 18:01 [facility] 03/10 16:50 Order name: CMP; Complete Time: 18:51 [facility] 03/10 16:50 Order name: Procalcitonin; Complete Time: 19:15 [facility] 03/10 16:50 Order name: Lactate; Complete Time: 18:15 [facility] 03/10 16:50 Order name: Blood Culture Adult (2) [facility] 03/10 16:50 Order name: Saline Lock; Complete Time: 17:40 [place] Administered Medications: 18:52 CANCELLED (Duplicate Order): Lasix 40 mg IVP once rn 19:04 Drug: Lasix 20 mg Route: IVP; Site: right antecubital; cc3 19:30 Follow up: Response: No adverse reaction cc3 19:06 Drug: Clindamycin 600 mg Route: IVPB; Infused Over: 30 mins; Site: right antecubital; cc3 19:50 Follow up: Response: No adverse reaction; IV Status: Completed infusion; IV Intake: [id number] Disposition: 03/10/19 19:36 Discharged to Home. Impression: Cellulitis of left lower limb, Cellulitis of right lower limb. - Condition is Stable. - Discharge Instructions: Cellulitis, Adult. - Prescriptions for Clindamycin HCl 300 mg Oral Capsule - take 1 capsule by ORAL route every 6 hours for 10 days; 40 capsule. Lasix 40 mg Oral Tablet - take 1 tablet by ORAL route once daily for 30 days; 30 tablet. - Medication Reconciliation Form, Thank You Letter, Antibiotic Education, Prescription Opioid Use form. - Follow up: Michael Albright MD; When: 2 - 3 days; Reason: Recheck today's complaints, Continuance of care, Re-evaluation by your physician. Addendum: 03/13/2019 00:43 Co-signature as Attending Physician, Jorge Myers MD. r n Signatures: Dispatcher [employer] EDMS Jacobo Regan PA PA jmm Nieto, Roman, MD MD rn Attema, Lee, RN RN la1 Helena Ruiz cc3 Corrections: (The following items were deleted from the chart) 03/10 18:52 18:52 Lasix 40 mg IVP once ordered. rn rn 19:56 19:36 03/10/2019 19:36 Discharged to Home. Impression: Cellulitis of left lower limb; cc3 Cellulitis of right lower limb. Condition is Stable. Prescriptions for Clindamycin HCl 300 mg Oral Capsule - take 1 capsule by ORAL route every 6 hours for 10 days; 40 capsule. and Forms are Medication Reconciliation Form, Thank You Letter, Antibiotic Education, Prescription Opioid Use. Follow up: Michael Albright; When: 2 - 3 days; Reason: Recheck today's complaints, Continuance of care, Re-evaluation by your physician. jmm
--- NOTE | 2019-03-10 19:36 | ER ---
Nurse's Notes [facility] Name: Coco Melton Age: 84 yrs Sex: Female : 1935 Arrival Date: 03/10/2019 Time: 16:17 Bed 20 Private MD: Michael Albright Diagnosis: Cellulitis of left lower limb;Cellulitis of right lower limb Presentation: 03/10 16:19 Presenting complaint: Patient states: Right and Left lower extremity cellulitis, is la1 about complete course of keflex. Sees Dr. Campbell. Transition of care: patient was not received from another setting of care. Onset of symptoms was March 10, 2019. Risk Assessment: Do you want to hurt yourself or someone else? Patient reports no desire to harm self or others. Initial Sepsis Screen: Does the patient meet any 2 criteria? No. Patient's initial sepsis screen is negative. Does the patient have a suspected source of infection? No. Patient's initial sepsis screen is negative. Care prior to arrival: None. 16:19 Method Of Arrival: Ambulatory la1 16:19 Acuity: SIMONE 3 la1 Historical: - Allergies: 16:20 Codeine; la1 - PMHx: 16:20 Anxiety; Arthritis; Hypertension; Hypothyroidism; neuropathy; la1 - Immunization history:: Adult Immunizations up to date. - Social history:: Smoking status: Patient/guardian denies using tobacco. - Ebola Screening: : No symptoms or risks identified at this time. Screenin:43 Abuse screen: Denies threats or abuse. Nutritional screening: No deficits noted. em Tuberculosis screening: No symptoms or risk factors identified. Fall Risk None identified. Assessment: 16:40 General: Appears in no apparent distress. comfortable, Behavior is calm, cooperative, em Denies fever. Pain: Complains of pain in right leg and left leg Pain currently is 5 out of 10 on a pain scale. Neuro: Level of Consciousness is awake, alert, obeys commands, Oriented to person, place, time, situation, Appropriate for age. Cardiovascular: Capillary refill < 3 seconds Patient's skin is warm and dry. Respiratory: Airway is patent Respiratory effort is even, unlabored, Respiratory pattern is regular, symmetrical. Derm: Skin is intact, is fragile, is thin, Skin is mottled, sania hands. Musculoskeletal: Range of motion: intact in all extremities, Swelling present in right leg and left leg. 17:23 Reassessment: Patient appears in no apparent distress at this time. Patient and/or em family updated on plan of care and expected duration. Pain level reassessed. Patient is alert, oriented x 3, equal unlabored respirations, skin warm/dry/pink. 18:31 Reassessment: Patient appears in no apparent distress at this time. Patient and/or em family updated on plan of care and expected duration. Pain level reassessed. Patient is alert, oriented x 3, equal unlabored respirations, skin warm/dry/pink. Dr. Myers at bedside. 19:15 Reassessment: Patient appears in no apparent distress at this time. Patient and/or cc3 family updated on plan of care and expected duration. Pain level reassessed. Patient is alert, oriented x 3, equal unlabored respirations, skin warm/dry/pink. Received this female patient from morning shift [facility] as a case of bilateral lower limb cellulitis. With IV cannula gauge 20 at the right ACV saline locked. 19:15 General: Appears in no apparent distress. comfortable, Behavior is calm, cooperative, cc3 appropriate for age, Denies fever. Pain: Complains of pain in left leg and right leg Pain currently is 2 out of 10 on a pain scale. Quality of pain is described as aching. Neuro: Level of Consciousness is awake, alert, obeys commands, Oriented to person, place, time, situation, Appropriate for age. Cardiovascular: Denies chest pain, Heart tones S1 S2 present Capillary refill < 3 seconds in bilateral fingers Patient's skin is warm and dry. Respiratory: Airway is patent Respiratory effort is even, unlabored, Respiratory pattern is regular, symmetrical, Breath sounds are clear bilaterally. GI: Abdomen is round obese, Bowel sounds present X 4 quads. : No signs and/or symptoms were reported regarding the genitourinary system. EENT: No signs and/or symptoms were reported regarding the EENT system. Derm: Skin is intact, is fragile, is thin, Skin is mottled. Musculoskeletal: Range of motion: intact in all extremities, Swelling present in right leg and left leg. 19:50 Reassessment: Patient appears in no apparent distress at this time. Patient and/or cc3 family updated on plan of care and expected duration. Pain level reassessed. Patient is alert, oriented x 3, equal unlabored respirations, skin warm/dry/pink. JESUS Regan discharged the patient home with prescriptions given. IV cannula removed and patient left ER vitally stable by wheelchair escorted by me and the patient's daughter. No valuables left in the patient's room. Patient denies pain at this time. Patient states feeling better. Patient states symptoms have improved. Vital Signs: 16:20 BP 155 / 65; Pulse 70; Resp 16; Temp 98.1; Pulse Ox 100% on R/A; Weight 95.25 kg; la1 Height 5 ft. 9 in. (175.26 cm); 17:30 BP 139 / 57; Pulse 69; Resp 18; Pulse Ox 99% on R/A; em 19:30 BP 154 / 90; Pulse 70; Resp 18 S; Temp 98.6(O); Pulse Ox 100% on R/A; cc3 16:20 Body Mass Index 31.01 (95.25 kg, 175.26 cm) la1 ED Course: 16:17 Patient arrived in ED. as 16:17 Michael Albright MD is Private Physician. as 16:19 Triage completed. la1 16:20 Arm band placed on right wrist. la1 16:21 Jacobo Regan PA is [facility] 16:21 Jorge Myers MD is Attending Physician. jm 16:21 Wagner Estrada LVN is Primary Nurse. em 16:43 Patient has correct armband on for positive identification. Placed in gown. Bed in low em position. Call light in reach. 17:14 Missed attempt(s): 22 gauge in left antecubital area. Bleeding controlled, band aid em applied, catheter tip intact. 19:36 Michael Albright MD is Referral Physician. [facility] 19:50 No provider procedures requiring assistance completed. IV discontinued, intact, cc3 bleeding controlled, No redness/swelling at site. Pressure dressing applied. Administered Medications: 18:52 CANCELLED (Duplicate Order): Lasix 40 mg IVP once rn 19:04 Drug: Lasix 20 mg Route: IVP; Site: right antecubital; cc3 19:30 Follow up: Response: No adverse reaction cc3 19:06 Drug: Clindamycin 600 mg Route: IVPB; Infused Over: 30 mins; Site: right antecubital; cc3 19:50 Follow up: Response: No adverse reaction; IV Status: Completed infusion; IV Intake: [id number] Intake: 19:50 IV: 50ml; Total: 50ml. cc3 Outcome: 19:36 Discharge ordered by . asia 19:50 Discharged to home via wheelchair, with family. cc3 19:50 Condition: stable 19:50 Discharge instructions given to patient, family, Instructed on discharge instructions, follow up and referral plans. medication usage, Demonstrated understanding of instructions, follow-up care, medications, Prescriptions given X 2. 19:56 Patient left the ED. cc3 Signatures: Jacobo Regan PA PA jmm Munoz, Edgar, SHAPER OPERATOR SHAPER OPERATOR Ibis Enriquez Lee, RN RN Helena Morataya cc3 Jorge Myers MD rn
[2019-03-10 22:11] VITALS: TEMP 98.1
[2019-03-10 22:25] VITALS: BP 139/57; O2SAT 99
== END 2019-03-10 19:56 | disposition home or self-care (01) ==
LOC: ER 16:13
DX: L03.116 Cellulitis of left lower limb (principal); L03.115 Cellulitis of right lower limb; Z88.6 Allergy status to analgesic agent
CPT/HCPCS: 96365; 87040 ×2; 85025; 36415; 83605; 80053; 84145; 96375; 99283; J1940

== ENCOUNTER 2019-03-17 09:44 | Observation (INO) | payer OTHER ==
[2019-03-17] MEDS ORDERED: FUROSEMIDE 40 MG/4 ML VIAL ONE (10:40)
[2019-03-17 10:59] LABS: Absolute Lymphocytes (CBC) 1.3 K/uL (0.7-4.9); Basophils % 0.9 % (0-1.3); Hematocrit 35.4 % (36.0-45.0); Lymphocytes % 17.9 % (15.3-44.8); MPV 7.9 fL (7.6-11.3); Protime INR 1.43; RBC Red Blood Cell Count 3.59 M/uL (3.86-4.86)
[2019-03-17 11:12] LABS: ALT/SGPT 26 U/L (12-78); AST/SGOT 27 U/L (15-37); Albumin 3.4 g/dL (3.4-5.0); Alkaline Phosphatase 145 U/L (45-117); BUN Blood Urea Nitrogen 30 mg/dL (7-18); Bicarbonate 31 mmol/L (21-32); Bilirubin Direct 0.1 mg/dL (0-0.2); Bilirubin Total 0.4 mg/dL (0.2-1.0); Glucose Level 94 mg/dL (74-106); Magnesium 2.2 mg/dL (1.8-2.4); NT PRO-BNP 1516 pg/mL (<450); Potassium 4.1 mmol/L (3.5-5.1); Protein, Total 7.9 g/dL (6.4-8.2); Sodium Level 144 mmol/L (136-145); Troponin (Emerg Dept Use Only) < 0.02 ng/mL (0.0-0.045)
--- NOTE | 2019-03-17 11:35 | RAD REPORT ---
EXAM DESCRIPTION: Bab[place] Single View03/17/2019 10:55 am CLINICAL HISTORY: sob COMPARISON: August 2018 FINDINGS: The lungs appear clear of acute infiltrate. The heart is mildly enlarged. Pacemaker leads are in place. IMPRESSION: No acute abnormalities displayed
--- NOTE | 2019-03-17 11:40 | RAD REPORT ---
EXAM DESCRIPTION: USExtrem Venous W Compress Bil03/17/2019 11:33 am CLINICAL HISTORY: Bilateral leg swelling COMPARISON: July 2018 FINDINGS: The common femoral, superficial femoral, popliteal and posterior tibial veins bilaterally are compressible and demonstrate augmentation. Doppler demonstrates good flow. IMPRESSION: No evidence of deep venous thrombosis involving either lower extremity.
--- NOTE | 2019-03-17 12:20 | ER ---
Nurse's Notes [facility] Name: Coco Melton Age: 84 yrs Sex: Female : 1935 Arrival Date: 03/17/2019 Time: 09:47 Bed 15 Private MD: Michael Albright Diagnosis: Cellulitis of left lower limb;Cellulitis of right lower limb;Failed outpatient antibiotic therapy;Shortness of breath Presentation: 03/17 09:59 Presenting complaint: Patient states: Diagnosed with cellulitis to lower extremities 1 ss week ago in ER. Patient reports that she was put on clindamycin, but the redness is getting worse and swelling has not improved. Transition of care: patient was not received from another setting of care. Onset of symptoms was February 07, 2019. Risk Assessment: Do you want to hurt yourself or someone else? Patient reports no desire to harm self or others. Initial Sepsis Screen: Does the patient meet any 2 criteria? RR > 20 per min. Does the patient have a suspected source of infection? Yes: Other: cellulitis. Care prior to arrival: None. 09:59 Method Of Arrival: Ambulatory ss 09:59 Acuity: SIMONE 3 ss Historical: - Allergies: 10:02 Codeine; ss - Home Meds: 10:02 alprazolam 1 mg Oral tab 1 tab nightly [Active]; gabapentin 300 mg Oral cap 1 cap 3 ss times per day [Active]; levothyroxine 150 mcg tab 1 tab once daily [Active]; lisinopril-hydrochlorothiazide 20-25 mg Oral tab 1 tab once daily [Active]; Potassium Chloride Oral once daily [Active]; venlafaxine 150 mg Oral cp24 1 cap once daily [Active]; Vitamin D Oral daily [Active]; Xarelto 15 mg Oral tab daily [Active]; Clindamycin Oral [Active]; - PMHx: 10:02 Anxiety; Arthritis; Hypertension; Hypothyroidism; neuropathy; ss - Immunization history:: Adult Immunizations up to date. - Social history:: Smoking status: Patient/guardian denies using tobacco. - Ebola Screening: : Patient denies exposure to infectious person Patient denies travel to an Ebola-affected area in the 21 days before illness onset. Screenin:31 Abuse screen: Denies threats or abuse. Denies injuries from another. Nutritional ph screening: No deficits noted. Tuberculosis screening: No symptoms or risk factors identified. Fall Risk None identified. Assessment: 10:15 General: Appears in no apparent distress. comfortable, well groomed, Behavior is ph cooperative, appropriate for age, anxious, Denies fever. Pain: Complains of pain in right leg and left leg. Neuro: Level of Consciousness is awake, alert, obeys commands, Oriented to person, place, time, situation. Cardiovascular: Reports shortness of breath, Denies chest pain, lightheadedness, palpitations, Capillary refill < 3 seconds in bilateral fingers Patient's skin is warm and dry. Edema is 2+ to left upper thigh, left lower thigh, left knee, left midcalf, left ankle, left foot, right upper thigh, right lower thigh, right knee, right midcalf, right ankle and right foot. Respiratory: Reports shortness of breath at rest Airway is patent Respiratory effort is even, unlabored, Respiratory pattern is regular, symmetrical, Breath sounds are clear bilaterally. Denies cough. GI: Patient currently denies abdominal pain, diarrhea, nausea, vomiting. Derm: Skin is healthy with good turgor, Skin is pink, warm \T\ dry. Derm: redness noted to bilateral lower legs. Musculoskeletal: Circulation, motion, and sensation intact. Range of motion: intact in all extremities. 11:30 Reassessment: Patient appears in no apparent distress at this time. Patient and/or ph family updated on plan of care and expected duration. Pain level reassessed. Patient is alert, oriented x 3, equal unlabored respirations, skin warm/dry/pink. 12:32 Reassessment: Patient appears in no apparent distress at this time. Patient and/or ph family updated on plan of care and expected duration. Pain level reassessed. Patient is alert, oriented x 3, equal unlabored respirations, skin warm/dry/pink. Pt ambulated to restroom w/ no difficulty, awaiting antibiotics from pharmacy and room assignment. 13:30 Reassessment: Patient appears in no apparent distress at this time. Patient and/or ph family updated on plan of care and expected duration. Pain level reassessed. Patient is alert, oriented x 3, equal unlabored respirations, skin warm/dry/pink. Vital Signs: 09:59 BP 125 / 55; Pulse 90; Resp 23; Temp 98.1(TE); Pulse Ox 98% on R/A; Weight 102.06 kg; ss Height 5 ft. 9 in. (175.26 cm); Pain 0/10; 10:30 BP 129 / 67; Pulse 83; Resp 18; Temp 97.9; Pulse Ox 100% on R/A; kj1 11:15 BP 134 / 67; Pulse 83; Resp 18; kj1 12:12 BP 129 / 69; Pulse 80; Resp 18; kj1 13:48 BP 129 / 71; Pulse 70; Resp 18; Pulse Ox 99% on R/A; ph 09:59 Body Mass Index 33.23 (102.06 kg, 175.26 cm) ED Course: 09:47 Patient arrived in ED. mr 09:47 Michael Albright MD is Private Physician. mr 09:59 Arm band placed on left wrist. ss 10:01 Triage completed. ss 10:04 Bernabe Dumont NP is PHCP. pm1 10:04 Diana Ngo MD is Attending Physician. pm1 10:08 Verónica Anaya, JOSI is Primary Nurse. ph 10:34 Initial lab(s) drawn, by de, sent to lab. Inserted saline lock: 22 gauge in right kj1 antecubital area, using aseptic technique. Blood collected. 10:49 First set of blood cultures drawn Second set of blood cultures drawn. kj1 10:55 XRAY Chest (1 view) In Process Unspecified. EDMS 11:26 Ultrasound completed. Other: slightly uncooperative, complaining of having to sg3 move/adjust for exam, explained for optimal exam would need to move as much as possible . 11:33 Extrem Venous W Compression Giovanny US In Process Unspecified. EDMS 12:06 Blood Culture Adult (2) Sent. kj1 12:18 Sim Lora MD is Hospitalizing Provider. pm1 12:32 Patient has correct armband on for positive identification. Bed in low position. Call ph light in reach. Side rails up X 1. security monitor on. Pulse ox on. NIBP on. Door closed. Noise minimized. Warm blanket given. 12:33 No provider procedures requiring assistance completed. Patient admitted, IV remains in ph place. Administered Medications: 11:50 Drug: Lasix 40 mg Route: IVP; Site: right antecubital; ph 14:00 Follow up: Response: No adverse reaction ph 13:46 Drug: vancoMYCIN 1 grams Route: IVPB; Infused Over: 2 hrs; Site: right antecubital; ph 14:00 Follow up: Response: No adverse reaction; IV Status: Infusion continued upon admission ph Outcome: 12:19 Decision to Hospitalize by Provider. pm1 14:24 Patient left the ED. ph 14:24 Admitted to Tele accompanied by tech, family with patient, via wheelchair, with chart. ph 14:24 Condition: stable 14:24 Instructed on the need for admit. Signatures: Dispatcher [employer] EDWV RuizGloria Shelby, RN RN ss Verónica Anaya RN RN Bernabe Chambers, DORIAN CAP MAKER pm1 Lotus Miguel 3 Azul Melton1
--- NOTE | 2019-03-17 12:21 | EDPHYS ---
Physician Documentation [facility] Name: Coco Melton Age: 84 yrs Sex: Female : 1935 Arrival Date: 03/17/2019 Time: 09:47 Bed 15 Private MD: Michael Albright ED Physician Diana Ngo HPI: 03/17 11:02 This 84 yrs old Female presents to ER via Ambulatory with complaints of pm1 Shortness Of Breath, Leg Swelling. 11:02 Onset: The symptoms/episode began/occurred 3 month(s) ago, and became worse 2 week(s) pm1 ago. Duration: The symptoms are continuous. The patient's shortness of breath is aggravated by increased swelling to lower extremities. Associated signs and symptoms: Pertinent positives: lower extremity swelling and redness, Pertinent negatives: chest pain, non-productive cough, productive cough, fever. Severity of symptoms: in the emergency department the symptoms are worse. Patient was seen in the ER here 1 week ago and was diagnosed with lower extremity cellulitis and discharged home with 3 day course of Lasix and clindamycin. Patient had completed cephalexin prior to ER visit for the same lower extremity cellulitis. The infection to her lower legs have not gotten any better or worse but she now reports swelling has increased to her bilateral thighs and increased shortness of breath. Historical: - Allergies: 10:02 Codeine; ss - Home Meds: 10:02 alprazolam 1 mg Oral tab 1 tab nightly [Active]; gabapentin 300 mg Oral cap 1 cap 3 ss times per day [Active]; levothyroxine 150 mcg tab 1 tab once daily [Active]; lisinopril-hydrochlorothiazide 20-25 mg Oral tab 1 tab once daily [Active]; Potassium Chloride Oral once daily [Active]; venlafaxine 150 mg Oral cp24 1 cap once daily [Active]; Vitamin D Oral daily [Active]; Xarelto 15 mg Oral tab daily [Active]; Clindamycin Oral [Active]; - PMHx: 10:02 Anxiety; Arthritis; Hypertension; Hypothyroidism; neuropathy; ss - Immunization history:: Adult Immunizations up to date. - Social history:: Smoking status: Patient/guardian denies using tobacco. - Ebola Screening: : Patient denies exposure to infectious person Patient denies travel to an Ebola-affected area in the 21 days before illness onset. ROS: 11:02 Constitutional: Negative for fever, chills, and weight loss, Eyes: Negative for injury, pm1 pain, redness, and discharge, ENT: Negative for injury, pain, and discharge, Neck: Negative for injury, pain, and swelling, Cardiovascular: Negative for chest pain, palpitations, and edema. 11:02 Abdomen/GI: Negative for abdominal pain, nausea, vomiting, diarrhea, and constipation, Back: Negative for injury and pain. 11:02 Neuro: Negative for headache, weakness, numbness, tingling, and seizure. 11:02 Respiratory: Positive for shortness of breath, Negative for cough. 11:02 MS/extremity: Positive for pain, of the right leg and left leg. 11:02 Skin: Positive for cellulitis, of the bilateral lower legs below the knee with blistering, swelling tightness and pain to bilateral thighs. Exam: 11:02 Constitutional: This is a well developed, well nourished patient who is awake, alert, pm1 and in no acute distress. Head/Face: Normocephalic, atraumatic. Eyes: Pupils equal round and reactive to light, extra-ocular motions intact. Lids and lashes normal. Conjunctiva and sclera are non-icteric and not injected. Cornea within normal limits. Periorbital areas with no swelling, redness, or edema. ENT: Nares patent. No nasal discharge, no septal abnormalities noted. Tympanic membranes are normal and external auditory canals are clear. Oropharynx with no redness, swelling, or masses, exudates, or evidence of obstruction, uvula midline. Mucous membranes moist. Neck: Trachea midline, no thyromegaly or masses palpated, and no cervical lymphadenopathy. Supple, full range of motion without nuchal rigidity, or vertebral point tenderness. No Meningismus. Chest/axilla: Normal chest wall appearance and motion. Nontender with no deformity. No lesions are appreciated. Cardiovascular: Regular rate and rhythm with a normal S1 and S2. No gallops, murmurs, or rubs. Normal PMI, no JVD. No pulse deficits. Respiratory: Lungs have equal breath sounds bilaterally, clear to auscultation and percussion. No rales, rhonchi or wheezes noted. No increased work of breathing, no retractions or nasal flaring. Abdomen/GI: Soft, non-tender, with normal bowel sounds. No distension or tympany. No guarding or rebound. No evidence of tenderness throughout. Back: No spinal tenderness. No costovertebral tenderness. Full range of motion. 11:02 Skin: Appearance: normal except for affected area, cellulitis, that is moderate, well demarcated, on the bialteral lateral aspect of calves, bilateral calves, bilateral medial aspect of calves and bilateral shins, swelling and tenderness to bilateral thighs. Vital Signs: 09:59 BP 125 / 55; Pulse 90; Resp 23; Temp 98.1(TE); Pulse Ox 98% on R/A; Weight 102.06 kg; ss Height 5 ft. 9 in. (175.26 cm); Pain 0/10; 10:30 BP 129 / 67; Pulse 83; Resp 18; Temp 97.9; Pulse Ox 100% on R/A; kj1 11:15 BP 134 / 67; Pulse 83; Resp 18; kj1 12:12 BP 129 / 69; Pulse 80; Resp 18; kj1 13:48 BP 129 / 71; Pulse 70; Resp 18; Pulse Ox 99% on R/A; ph 09:59 Body Mass Index 33.23 (102.06 kg, 175.26 cm) ss MDM: 10:14 Patient medically screened. pm1 12:16 Data reviewed: vital signs. Data interpreted: Pulse oximetry: on room air is 100 %. pm1 Interpretation: normal. 12:18 Counseling: I had a detailed discussion with the patient and/or guardian regarding: the pm1 historical points, exam findings, and any diagnostic results supporting the discharge/admit diagnosis, lab results, radiology results, the need for further work-up and treatment in the hospital. 03/17 10:17 Order name: Basic Metabolic Panel; Complete Time: : pm1 03/17 10:17 Order name: CBC with Diff; Complete Time: : pm1 03/17 10:17 Order name: LFT's; Complete Time: : pm1 03/17 10:17 Order name: Magnesium; Complete Time: 11: pm1 03/17 10:17 Order name: NT PRO-BNP; Complete Time: : pm1 03/17 10:17 Order name: PT-INR; Complete Time: 11: pm1 03/17 10:17 Order name: Troponin (emerg Dept Use Only); Complete Time: 11:20 pm1 03/17 10:17 Order name: XRAY Chest (1 view); Complete Time: 12:57 pm1 03/17 10:17 Order name: Extrem Venous W Compression Giovanny US; Complete Time: 12:57 pm1 03/17 10:17 Order name: Blood Culture Adult (2) pm1 03/17 10:17 Order name: Procalcitonin; Complete Time: 11:33 pm1 03/17 10:17 Order name: Lactate; Complete Time: 11:20 pm1 03/17 12:39 Order name: Urine Microscopic Only; Complete Time: 14:07 eb 03/17 12:40 Order name: Urine Dipstick--Ancillary (enter results); Complete Time: 14:07 eb 03/17 10:17 Order name: EKG; Complete Time: 10:18 pm1 03/17 10:17 Order name: Cardiac monitoring; Complete Time: 10:40 pm1 03/17 10:17 Order name: EKG - Nurse/Tech; Complete Time: 10:40 pm1 03/17 10:17 Order name: IV Saline Lock; Complete Time: 10:40 pm1 03/17 10:17 Order name: Labs collected and sent; Complete Time: 10:40 pm1 03/17 10:17 Order name: O2 Per Protocol; Complete Time: 10:26 pm1 03/17 10:17 Order name: O2 Sat Monitoring; Complete Time: 10:26 pm1 03/17 13:01 Order name: Regular EDMS 03/17 13:01 Order name: Echo with Doppler EDMS Administered Medications: 11:50 Drug: Lasix 40 mg Route: IVP; Site: right antecubital; ph 14:00 Follow up: Response: No adverse reaction ph 13:46 Drug: vancoMYCIN 1 grams Route: IVPB; Infused Over: 2 hrs; Site: right antecubital; ph 14:00 Follow up: Response: No adverse reaction; IV Status: Infusion continued upon admission ph Disposition: 03/17/19 12:19 Hospitalization ordered by Sim Lora for Inpatient Admission. Preliminary diagnosis are Cellulitis of left lower limb, Cellulitis of right lower limb, Failed outpatient antibiotic therapy, Shortness of breath. - Bed requested for Telemetry/MedSurg (Inpatient). - Status is Inpatient Admission. ph - Condition is Stable. - Problem is new. - Symptoms have improved. UTI on Admission? No Addendum: 03/18/2019 16:42 Co-signature as Attending Physician, Diana Ngo MD I agree with the assessment m a2 and plan of care. Signatures: Dispatcher [employer] EDMS Trice Adame RN RN Verónica Anaya RN RN Bernabe Dumont, COATER ASSOCIATE COATER ASSOCIATE pm1 Diana Ngo MD MD nj2 Patrizia Delgado Corrections: (The following items were deleted from the chart) 03/17 13:28 12:19 Hospitalization Ordered by Sim Lora MD for Inpatient Admission. eb Preliminary diagnosis is Cellulitis of left lower limb; Cellulitis of right lower limb; Failed outpatient antibiotic therapy; Shortness of breath. Bed requested for Telemetry/MedSurg (Inpatient). Status is Inpatient Admission. Condition is Stable. Problem is new. Symptoms have improved. UTI on Admission? No. pm1 14:24 13:28 03/17/2019 12:19 Hospitalization Ordered by Sim Lora MD for Inpatient ph Admission. Preliminary diagnosis is Cellulitis of left lower limb; Cellulitis of right lower limb; Failed outpatient antibiotic therapy; Shortness of breath. Bed requested for Telemetry/MedSurg (Inpatient). Status is Inpatient Admission. Condition is Stable. Problem is new. Symptoms have improved. UTI on Admission? No. eb
[2019-03-17] MEDS ORDERED: VANCOMYCIN/NS 1 gm 1 GM/250 ML BAG IV ONE (13:00)
[2019-03-17 13:22] LABS: Urine Blood 2+ (NEG); Urine Glucose NEGATIVE (NEG); Urine Protein NEGATIVE (NEG); Urine Specific Gravity 1.015 (1.005-1.030); Urine pH 5.5 (5.0-7.0)
[2019-03-17 13:28] LABS: Urine Bacteria >50 /HPF (<20)
[2019-03-17 13:29] LABS: Urine Culture Reflex Order REFLEXED
[2019-03-17] MEDS: CEFEPIME/SWI 1gm 10 ML IVP SCH ×2 (13:30→15:51)
[2019-03-17 15:15] VITALS: BMI 33.4
[2019-03-17] MEDS: SPIRONOLACTONE 25 MG TABLET PO SCH ×2 (15:51→21:03)
--- NOTE | 2019-03-17 16:30 | P.HP ---
Certification for Inpatient Patient admitted to: Observation With expected LOS: <2 Midnights Practitioner: I am a practitioner with admitting privileges, knowledge of patient current condition, hospital course, and medical plan of care. Services: Services provided to patient in accordance with Admission requirements found in Title 42 Section 412.3 of the Code of Federal Regulations Patient History Date of Service: 03/17/19 Reason for admission: Lower extremity edema History of Present Illness: Patient is 84 years of age has had swelling of her legs for about 3 months dances up to the knee but is chronic there has been no change recently admission precipitated by a worsening edema of her legs especially in the left leg patient denies any fever chills no pulmonary complaints history of coronary artery disease patient was recently prescribed clindamycin and Lasix Allergies Opioids - Morphine Analogues Allergy (Verified 03/17/19 14:36) Anaphylaxis Codeine Allergy (Uncoded 03/17/19 14:35) Unknown Home Medications: Baclofen [Lioresal*] 10 mg PO BEDTIME 03/17/19 Cranberry 500 mg PO BID 03/17/19 Gabapentin 600 mg PO BID 03/17/19 Levothyroxine Sodium 150 mcg PO DAILY 03/17/19 Lisinopril [Prinivil*] 20 mg PO DAILY 03/17/19 Magnesium Oxide 400 mg PO BID 03/17/19 Melatonin 10 mg PO BEDTIME 03/17/19 Metoprolol Succinate [Toprol Xl*] 25 mg PO BID 03/17/19 Potassium Chloride [Klor-Con M10] 20 meq PO DAILY 03/17/19 Pramipexole [Mirapex*] 1 mg PO DAILY 03/17/19 Rosuvastatin [Crestor*] 10 mg PO DAILY 03/17/19 hydroCHLOROthiazide [Hydrochlorothiazide] 25 mg PO DAILY 03/17/19 - Past Medical/Surgical History Diabetic: No -: Hypertension -: Atrial fibrillation -: Hypothyroidism -: Depression -: Neuropathy -: RLS -: MS -: Appendectomy -: Cholesystectomy -: Hysterectomy -: Instemi -: fractured femur -: Score is stents - Family History Father History Unknown: Yes -: Heart disease Mother Notes: old age - Social History Smoking Status: Former smoker Alcohol use: No CD- Drugs: No Caffeine use: Yes Place of Residence: Custodial Review of Systems 10-point ROS is otherwise unremarkable General: Weakness Cardiovascular: Edema Physical Examination - Vital Signs Temperature: 97.9 F Blood Pressure: 129/71 Pulse: 70 Respirations: 18 - Physical Exam General: Alert, In no apparent distress, Oriented x3 HEENT: Atraumatic Neck: Supple Respiratory: Clear to auscultation bilaterally Cardiovascular: Regular rate/rhythm, Normal S1 S2, Edema (Significant edema of lower extremities with very the man redness up to the knees on both legs) Gastrointestinal: Normal bowel sounds, Soft and benign Musculoskeletal: No clubbing Integumentary: No rashes - Studies Laboratory Data (last 24 hrs) 03/17/19 10:21: PT 16.6 H, INR 1.43 03/17/19 10:21: WBC 7.5 D, Hgb 11.6 L, Hct 35.4 L, Plt Count 300 03/17/19 10:21: Sodium 144, Potassium 4.1, BUN 30 H, Creatinine 1.23, Glucose 94 , Magnesium 2.2, Total Bilirubin 0.4, AST 27, ALT 26, Alkaline Phosphatase 145 H Assessment and Plan - Problems (Diagnosis) (1) Lymphedema of lower extremity Current Visit: No Status: Chronic Plan: Patient is 84 years of age admitted with the worsening swelling of her legs been no change in her redness about that she has active ongoing cellulitis there is no evidence of sepsis I suggest started her on a spironolactone and Lasix combination chest x-ray clear Qualifiers: Laterality: bilateral Qualified Code(s): I89.0 - Lymphedema, not elsewhere classified Discharge Plan: Home - Advance Directives Does patient have a Living Will: No Does patient have a Durable POA for Healthcare: Yes
[2019-03-17] MEDS ORDERED: ACETAMINOPHEN 500 MG TAB PO PRN (18:06)
[2019-03-17] MEDS ORDERED: ACETAMINOPHEN 500 MG TAB ONE (18:20)
[2019-03-17] MEDS ORDERED: HOME MED 1 EA UNK (Gabapentin [Gabapentin] 600 MG) PO SCH (21:00)
[2019-03-17] MEDS ORDERED: CEFEPIME 1 GM/VIAL IV SCH (21:00)
[2019-03-17] MEDS: GABAPENTIN 300 MG CAP PO SCH (21:02)
[2019-03-17] MEDS: MELATONIN 5 MG TABLET PO SCH (21:02)
[2019-03-17] MEDS: BACLOFEN 10 MG TAB PO SCH (21:03)
[2019-03-17] MEDS: METOPROLOL XL 25 MG TAB PO SCH (21:03)
[2019-03-17] MEDS: ACETAMINOPHEN 325 MG TABLET PO PRN (22:39)
[2019-03-18] MEDS: ACETAMINOPHEN 325 MG TABLET PO PRN ×3 (02:10→17:11)
[2019-03-18] MEDS ORDERED: HYDROCORTISONE SUC 100 MG INJ IV ONE (04:43)
[2019-03-18] MEDS ORDERED: FUROSEMIDE 20 MG/ 2ML VIAL IV ONE (04:43)
[2019-03-18] MEDS ORDERED: ALBUMIN HUMAN 25% 100 ML IV ONE (04:43)
[2019-03-18] MEDS ORDERED: PIPERACIL/TAZO 3.375 GM VIAL IV ONE (05:24)
[2019-03-18] MEDS ORDERED: NA CHLORIDE 0.9% 100 ML ONE (05:26)
[2019-03-18] MEDS: TRAMADOL 37.5mg/APAP 325mg PER TAB PO PRN ×3 (05:36→21:55)
[2019-03-18] MEDS: LEVOTHYROXINE SOD 0.075 MG TAB PO SCH (05:37)
[2019-03-18] MEDS ORDERED: PIPER/TAZO/NS 3.375gm 3.375 GM/100 ML BAG IVPB SCH (06:00)
[2019-03-18 06:07] LABS: MPV 7.7 fL (7.6-11.3); RBC Red Blood Cell Count 3.35 M/uL (3.86-4.86)
[2019-03-18 06:22] LABS: Potassium 4.3 mmol/L (3.5-5.1)
[2019-03-18] MEDS: PRAMIPEXOLE 1 MG TAB PO SCH (07:50)
[2019-03-18] MEDS: ROSUVASTATIN 10 MG TAB PO SCH (07:50)
[2019-03-18] MEDS: GABAPENTIN 300 MG CAP PO SCH ×2 (07:50→21:45)
[2019-03-18] MEDS: SPIRONOLACTONE 25 MG TABLET PO SCH ×2 (07:55→21:45)
[2019-03-18] MEDS: METOPROLOL XL 25 MG TAB PO SCH ×2 (08:00→21:45)
[2019-03-18] MEDS: FUROSEMIDE 40 MG/4 ML VIAL IV SCH (08:00)
--- NOTE | 2019-03-18 08:39 | EKG ---
Test Date: 2019-03-17 Test Time: 10:52:04 [place]robing Machine Operator: ANAMARIA MEASUREMENT RESULTS: Intervals: Rate: 70 NH: QRSD: 162 QT: 446 QTc: 481 [place]: P: NH: QRS: 206 T: 34 INTERPRETIVE STATEMENTS: Ventricular-paced rhythm Abnormal ECG Compared to ECG 08/19/2018 13:42:50 No significant changes Electronically Signed On 03-18-19 08:38:46 PRE PRESS OPERATOR by Jesse Bentley
[2019-03-18] MEDS ORDERED: HOME MED 1 EA UNK (Levothyroxine Sodium [Levothyroxine Sodium] 150 MCG) PO SCH (09:00)
[2019-03-18] MEDS: PIPER/TAZO/NS 3.375gm 3.375 GM/100 ML BAG IVPB SCH ×2 (11:20→17:07)
--- NOTE | 2019-03-18 14:28 | RAD REPORT ---
EXAM DESCRIPTION: CTAbdomen Pelvis W Contrast - 03/18/2019 2:19 pm CLINICAL HISTORY: Abdominal pain. possible pelvic lesion COMPARISON: Extrem Venous W Compress Giovanny dated 03/17/2019 TECHNIQUE: Biphasic CT imaging of the abdomen and pelvis was performed with 100 ml non-ionic IV cont rast. All CT scans are performed using dose optimization technique as appropriate and may include automated exposure control or mA/KV adjustment according to patient size. FINDINGS: Calcified granuloma is present in the right lung base medially.Pacemaker wires. Mild fatty liver is present. Cholecystectomy clips are seen. The spleen, adrenal glands and kidneys a re within normal limits. Pancreas is unremarkable. No bowel obstruction, free air, free fluid or abscess. Sigmoid diverticulosis coli without diverticul itis. The appendix is not identified as a discrete structure, however, no secondary findings of appen dicitis are identified. No evidence of significant lymphadenopathy. The patient is status post hys terectomy. Hardware is present in the proximal left femur. IMPRESSION: Mild fatty liver. Sigmoid diverticulosis coli without diverticulitis.
[2019-03-18] MEDS ORDERED: INFLUENZA VACCINE (for 3y+) 0.5 ML DOSE IMVAC ONE (15:00)
[2019-03-18] MEDS ORDERED: PNEUMOCOCCAL VACCINE 0.5 ML IMVAC ONE (15:00)
--- NOTE | 2019-03-18 15:57 | ECHO ---
HEIGHT: 5 ft 8 in WEIGHT: 220 lb 0 oz DATE OF STUDY: 03/18/[address]: Sim Lora MD 2-DIMENSIONAL: YES M.MODE: YES DOPPLER: YES COLOR FLOW: YES TDS: YES PORTABLE: DEFINITY: BUBBLE STUDY: DIAGNOSIS: RULE OUT CHF CARDIAC HISTORY: CATHERIZATION: YES SURGERY: NO PROSTHETIC VALVE: NO PACEMAKER: YES MEASUREMENTS (cm) DIASTOLIC (NORMALS) SYSTOLIC (NORMALS) IVSd 1.2 (0.6-1.2) LA Diam 3.9 (1.9-4.0) LVEF 60-69% LVIDd 4.5 (3.5-5.7) LVIDs 3.6 (2.0-3.5) %FS 21% LVPWd 1.1 (0.6-1.2) Ao Diam 2.6 (2.0-3.7) 2 DIMENSIONAL ASSESSMENT: RIGHT ATRIUM: NORMAL LEFT ATRIUM: NORMAL RIGHT VENTRICLE: PACEMAKER IN RIGHT VENTRICLE LEFT VENTRICLE: NORMAL TRICUSPID VALVE: NORMAL MITRAL VALVE: NORMAL PULMONIC VALVE: NORMAL AORTIC VALVE: NORMAL PERICARDIAL EFFUSION: NONE AORTIC ROOT: NORMAL LEFT VENTRICULAR WALL MOTION: NORMAL DOPPLER/COLOR FLOW: MILD TRICUSPID REGURGITATION. ESTIMATED RIGHT VENTRICULAR SYSTOLIC PRESSURE 40 mmHg. MILD PULMONARY HYPERTENSION. COMMENTS: NORMAL LEFT VENTRICULAR EJECTION FRACTION. PACEMAKER IN RIGHT VENTRICLE. MILD TRICUSPID REGURGITATION. MILD PULMONARY HYPERTENSION. TECHNOLOGIST: CESAR KAUFMAN
[2019-03-18] MEDS: MELATONIN 5 MG TABLET PO SCH (21:45)
[2019-03-18] MEDS: BACLOFEN 10 MG TAB PO SCH (21:46)
[2019-03-19] MEDS: ACETAMINOPHEN 325 MG TABLET PO PRN (03:32)
[2019-03-19] MEDS: LEVOTHYROXINE SOD 0.075 MG TAB PO SCH (05:15)
[2019-03-19] MEDS ORDERED: INFLUENZA VACCINE (for 3y+) 0.5 ML DOSE IMVAC ONE (06:00)
[2019-03-19] MEDS ORDERED: PNEUMOCOCCAL VACCINE 0.5 ML IMVAC ONE (06:00)
[2019-03-19] MEDS: TRAMADOL 37.5mg/APAP 325mg PER TAB PO PRN (07:20)
--- NOTE | 2019-03-19 08:23 | PN ---
Date of Progress Note: 03/18/2019 Subjective: Patient states she still feels the same. The legs are quite uncomfortable. There is ma rked edema and erythema 3[address] her legs. She states the swelling and discomfort goes in t he upper legs and into her back. The other possibility for the explanation of the lymphedema, idiopa thic, is palpable pelvic abdominal mass and we will do a CT scan to rule this out and Dr. Lora fe lt that the probability of being cellulitis on top of the lymphedema was unlikely and therefore the a ntibiotics have been stopped. If in fact the abdominal CT scan is negative, then patient will have t o be treated symptomatically. There was no evidence of CHF, although we are awaiting an echo this af ternoon. Probably will be discharged in a.m. HR/MODL Voice ID: [id number] Report ID: [id number]
[2019-03-19 09:12] VITALS: BP 144/65; TEMP 97.6
[2019-03-19] MEDS: FUROSEMIDE 40 MG/4 ML VIAL IV SCH (09:18)
[2019-03-19] MEDS: METOPROLOL XL 25 MG TAB PO SCH (09:18)
[2019-03-19] MEDS: PRAMIPEXOLE 1 MG TAB PO SCH (09:19)
[2019-03-19] MEDS: GABAPENTIN 300 MG CAP PO SCH (09:19)
[2019-03-19] MEDS: ROSUVASTATIN 10 MG TAB PO SCH (09:19)
[2019-03-19] MEDS: SPIRONOLACTONE 25 MG TABLET PO SCH (09:20)
[2019-03-19 11:15] VITALS: O2SAT 96
--- NOTE | 2019-03-20 11:51 | PN ---
Date of Progress Note: 03/19/2019 Patient states had she does feel somewhat better today and has been having slight decrease in the khushboo ma and certainly the erythema of her legs. Discussion of lymphedema diagnosis and treatment was done with her daughter present and the possibility of reducing lymphedema specialist was considered, felt well enough to be discharged, placed on Lasix rather than hydrochlorothiazide and restart the Aldact one on Monday and follow up in 1 week with a blood test. She did have a positive UA, basically asymp tomatic, however, is greater than 100,000 and Bactrim was added to the regimen. She was discharged i n good condition. HR/MODL Voice ID: [id number] Report ID: [id number]
== END 2019-03-19 13:05 | disposition home or self-care (01) ==
LOC: ER 09:44 → SUPCPDRO 09:44 → INTOOBSV 12:56 → ERHOLD 12:56 → 2ND 14:06
PROVIDERS: ADMIT Internal Medicine Sleep Medicine; ATTEND Internal Medicine Sleep Medicine
DX: I89.0 Lymphedema, not elsewhere classified (principal); I10 Essential (primary) hypertension; I48.91 Unspecified atrial fibrillation; E03.9 Hypothyroidism, unspecified; F32.9 Major depressive disorder, single episode, unspecified; I25.2 Old myocardial infarction; Z87.891 Personal history of nicotine dependence; Z23 Encounter for immunization
CPT/HCPCS: 93005; 93306; 87040 ×2; 87088; 85025; 87086; 80048 ×2; 36415; 83735; 85610; 80076; 83605; 87077; 87186; 85027; 84484; 84145; 83880; 74177; 71045; 90471 ×2; 93970; 90670; 96375; 96374; 99285; Q9967; J1940 ×3; Q2035; J2543 ×3; J3370; P9047; J1720; G0378 ×4; 81003; 81015; J0692

== ENCOUNTER 2019-05-25 10:24 | Inpatient (IN) | payer OTHER ==
[2019-05-25] MEDS ORDERED: METHYLPREDNISOLONE 125 MG INJ ONE (10:43)
[2019-05-25] MEDS ORDERED: NA CHLORIDE 0.9% 1,000 ML ONE (10:43)
[2019-05-25] MEDS ORDERED: IPRATROPIUM BROM 0.5MG/2.5ML ONE (10:43)
[2019-05-25] MEDS ORDERED: ALBUTEROL 2.5 MG/3 ML NEB SOL ONE (10:43)
[2019-05-25] MEDS ORDERED: CEFTRIAXONE/SWI 1gm 1 GM/10 ML SYR ONE (10:43)
[2019-05-25] MEDS ORDERED: AZITHROMYCIN IV 500 MG in NA CHLORIDE 0.9% 250 ML IVPB ONE (11:00)
--- NOTE | 2019-05-25 11:05 | RAD REPORT ---
EXAM DESCRIPTION: Babatunde Single View05/25/2019 10:59 am CLINICAL HISTORY: Congestion COMPARISON: March 2019 FINDINGS: Small pleural effusions. Mild bilateral interstitial lung opacities. . The heart is mildly to moderately enlarged. Pacemaker leads are in place. IMPRESSION: Mild CHF
[2019-05-25 11:39] LABS: Protime INR 1.8
[2019-05-25 11:43] LABS: Absolute Lymphocytes (CBC) 1.2 K/uL (0.7-4.9); Basophils % 0.7 % (0-1.3); Hematocrit 38.8 % (36.0-45.0); Lymphocytes % 14.7 % (15.3-44.8); MPV 8.1 fL (7.6-11.3); RBC Red Blood Cell Count 4.02 M/uL (3.86-4.86)
[2019-05-25 11:49] LABS: ALT/SGPT 24 U/L (12-78); AST/SGOT 22 U/L (15-37); Albumin 3.4 g/dL (3.4-5.0); Alkaline Phosphatase 184 U/L (45-117); BUN Blood Urea Nitrogen 30 mg/dL (7-18); Bicarbonate 33 mmol/L (21-32); Bilirubin Direct 0.2 mg/dL (0-0.2); Bilirubin Total 0.4 mg/dL (0.2-1.0); CKMB Creatine Kinase MB 2.8 ng/mL (0.3-3.6); Creatine Phosphokinase 46 U/L (26-192); Glucose Level 116 mg/dL (74-106); Lipase 162 U/L (73-393); Magnesium 2.6 mg/dL (1.8-2.4); NT PRO-BNP 1590 pg/mL (<450); Potassium 5.5 mmol/L (3.5-5.1); Protein, Total 8.5 g/dL (6.4-8.2); Sodium Level 143 mmol/L (136-145); Troponin (Emerg Dept Use Only) < 0.02 ng/mL (0.0-0.045)
[2019-05-25] MEDS ORDERED: FUROSEMIDE 40 MG/4 ML VIAL ONE (12:03)
[2019-05-25 12:29] LABS: Urine Amorphous Sediment 2+ /HPF (NONE SEEN); Urine Bacteria <20 /HPF (<20); Urine Culture Reflex Order REFLEXED
--- NOTE | 2019-05-25 12:32 | ER ---
Nurse's Notes [facility] Name: Coco Melton Age: 84 yrs Sex: Female : 1935 Arrival Date: 05/25/2019 Time: 10:24 Bed 5 Private MD: Diagnosis: Cystitis, unspecified without hematuria;Altered mental status, unspecified Presentation: 05/25 10:25 Presenting complaint: EMS states: Called out for AMS, last known normal was yesterday hb morning per daughter. SpO2 80s on RA, bilat hands cyanotic, BGL 106, NS 200ml to 20g RAC administered PINMAKER. Transition of care: patient was received from another setting of care (long-term care facility), [facility]. Onset of symptoms was May 25, 2019. Risk Assessment: Do you want to hurt yourself or someone else? Patient reports no desire to harm self or others. Care prior to arrival: IV initiated. 20 GA, in the right antecubital area. 10:25 Method Of Arrival: EMS: [facility] hb 10:25 Acuity: SIMONE 2 hb 10:30 Initial Sepsis Screen: Does the patient meet any 2 criteria? RR > 20 per min. Altered hb Mental Status. Does the patient have a suspected source of infection? No. Patient's initial sepsis screen is negative. Historical: - Allergies: 10:33 Codeine; hb - Home Meds: 10:33 alprazolam 1 mg Oral tab 1 tab nightly [Active]; Clindamycin Oral [Active]; gabapentin hb 300 mg Oral cap 1 cap 3 times per day [Active]; levothyroxine 150 mcg tab 1 tab once daily [Active]; lisinopril-hydrochlorothiazide 20-25 mg Oral tab 1 tab once daily [Active]; Potassium Chloride Oral once daily [Active]; venlafaxine 150 mg Oral cp24 1 cap once daily [Active]; Vitamin D Oral daily [Active]; Xarelto 15 mg Oral tab daily [Active]; metoprolol tartrate 25 mg Oral tab 1 tab 2 times per day [Active]; clopidogrel 75 mg oral tab 1 tab once daily [Active]; lisinopril 20 mg Oral tab 1 tab once daily [Active]; pramipexole 1 mg oral tab [Active]; - PMHx: 10:33 Anxiety; Arthritis; Hypertension; Hypothyroidism; neuropathy; hb - Immunization history:: Adult Immunizations up to date. - Social history:: Smoking status: unknown Patient/guardian denies using alcohol, street drugs, The patient lives with family. - Ebola Screening: : No symptoms or risks identified at this time. - Family history:: not pertinent. Screenin:15 Abuse screen: Denies threats or abuse. Denies injuries from another. Nutritional hb screening: No deficits noted. Tuberculosis screening: No symptoms or risk factors identified. Fall Risk Total Mckeon Fall Scale indicates High Risk Score (45 or more points). Fall prevention measures have been instituted. Side Rails Up X 2 Frequent Obs/Assessments Occuring Family Present and informed to notify staff if the need to leave the bedside As available patient and family educated on Fall Prevention Program and Strategies. Assessment: 10:28 General: Appears distressed, Behavior is cooperative, listless. Pain: Denies pain. hb Neuro: Level of Consciousness is obeys commands, lethargic, Oriented to person, place. Cardiovascular: Heart tones S1 S2 present Capillary refill is > 3 seconds. Respiratory: Airway is patent Respiratory effort is labored, Respiratory pattern is tachypnea Breath sounds are coarse bilaterally. GI: No signs and/or symptoms were reported involving the gastrointestinal system. : No signs and/or symptoms were reported regarding the genitourinary system. EENT: No signs and/or symptoms were reported regarding the EENT system. Derm: Skin is dry, Skin is bilateral hands cyanotic. Musculoskeletal: No signs and/or symptoms reported regarding the musculoskeletal system. 11:30 Reassessment: Patient and/or family updated on plan of care and expected duration. Pain hb level reassessed. Patient is alert, oriented x 3, equal unlabored respirations, skin warm/dry/pink. Daughter at bedside. 12:30 Reassessment: Patient appears in no apparent distress at this time. Patient and/or hb family updated on plan of care and expected duration. Pain level reassessed. Admission ordered, awaiting room assignment at this time. Daughter remains at bedside. 13:17 Reassessment: Patient appears in no apparent distress at this time. Patient and/or hb family updated on plan of care and expected duration. Pain level reassessed. Patient is alert, oriented x 3, equal unlabored respirations, skin warm/dry/pink. 14:00 Reassessment: Patient appears in no apparent distress at this time. Patient and/or hb family updated on plan of care and expected duration. Pain level reassessed. Patient is alert, oriented x 3, equal unlabored respirations, skin warm/dry/pink. Vital Signs: 10:27 BP 143 / 94; Pulse 70; Resp 38; Temp 97.9(A); Pulse Ox 84% on R/A; Weight 120 kg; Pain hb 0/10; 11:30 BP 134 / 78; Pulse 70; Resp 30; Pulse Ox 98% on Nebulizer Mask; hb 12:00 BP 133 / 76; Pulse 70; Resp 26; Pulse Ox 90% on 3 lpm NC; Pain 0/10; hb 13:00 BP 132 / 74; Pulse 70; Resp 28; Pulse Ox 93% on 3 lpm NC; Pain 0/10; hb ED Course: 10:24 Patient arrived in ED. hb 10:26 Triage completed. hb 10:27 Arm band placed on. hb 10:29 Diana Ngo MD is Attending Physician. ma2 10:32 Patient has correct armband on for positive identification. Placed in gown. Bed in low hb position. Call light in reach. Side rails up X2. cheesemaker on. Pulse ox on. NIBP on. 10:50 EKG done, by ED staff, reviewed by Diana Ngo MD. jb1 10:53 Daya Ching, RN is Primary Nurse. hb 10:59 XRAY CXR (1 view) In Process Unspecified. EDMS 11:00 First set of blood cultures drawn by me. hb 11:15 Maintain EMS IV. Dressing intact. Good blood return noted. Site clean \T\ dry. Gauge \T\ hb site: 20g RAC. 11:15 Initial lab(s) drawn, by me, sent to lab. hb 11:15 Second set of blood cultures drawn by me. hb 12:08 Baron cath inserted, using sterile technique, 16 Fr., by me, balloon inflated, to gravity drainage, urine specimen collected. returned cloudy urine. Patient tolerated well. 12:31 Michael Albright MD is Hospitalizing Provider. ma2 12:56 CT Head Brain wo Cont In Process Unspecified. EDMS 14:15 No provider procedures requiring assistance completed. Patient admitted, IV remains in hb place. Administered Medications: 10:45 Drug: AtroVENT Aerosol 0.5 mg Route: Inhalation; hb 10:55 Drug: Albuterol 2.5 mg Route: Inhalation; hb 11:00 Drug: SOLU-Medrol 125 mg Route: IVP; Site: right antecubital; hb 11:30 Follow up: Response: No adverse reaction hb 11:00 Drug: AtroVENT Aerosol 0.5 mg Route: Inhalation; hb 11:00 Drug: Albuterol 2.5 mg Route: Inhalation; hb 11:15 Drug: AtroVENT Aerosol 0.5 mg Route: Inhalation; hb 11:30 Follow up: Response: No adverse reaction hb 11:15 Drug: Albuterol 2.5 mg Route: Inhalation; hb 12:00 Follow up: Response: No adverse reaction hb 11:20 Drug: NS 0.9% 1000 ml Route: IV; Rate: 1 bolus; Site: right antecubital; hb 12:35 Follow up: Response: No adverse reaction; IV Status: Completed infusion; IV Intake: hb 1000ml 11:20 Drug: Rocephin 1 grams Route: IV; Rate: calculated rate; Site: right antecubital; hb 11:22 Follow up: IV Status: Completed infusion; IV Intake: 10ml hb 12:09 Drug: Lasix 40 mg Route: IVP; Site: right antecubital; hb 12:45 Follow up: Response: No adverse reaction hb 12:45 Follow up: Response: No adverse reaction hb 12:10 Drug: AZITHromycin 500 mg Route: IVPB; Infused Over: 1 hrs; Site: right antecubital; hb 13:30 Follow up: Response: No adverse reaction; IV Status: Completed infusion; IV Intake: hb 250ml Intake: 11:22 IV: 10ml; Total: 10ml. hb 12:35 IV: 1000ml; Total: 1010ml. hb 13:30 IV: 250ml; Total: 1260ml. hb Output: 14:13 Urine: 1500ml (Baron); Total: 1500ml. hb Outcome: 12:31 Decision to Hospitalize by Provider. ma2 14:15 Admitted to Tele accompanied by tech, family with patient, via stretcher, room 401, hb Report called to Blane PRATER 14:15 Condition: stable 14:15 Instructed on the need for admit. 14:37 Patient left the ED. hb Signatures: Dispatcher [employer] EDMS Akbar Melara jb1 aDya Ching RN RN Diana Nicole MD MD ma2 Corrections: (The following items were deleted from the chart) 11:37 10:50 Maintain EMS IV. Dressing intact. Good blood return noted. Site clean \T\ dry. hb Gauge \T\ site: 20g RAC. hb 11:38 10:27 BP 143 / 94; Pulse 70bpm; Resp 38bpm; Temp 97.9F Axillary; 120 kg; Pain 0/10; hb hb
--- NOTE | 2019-05-25 12:32 | EDPHYS ---
Physician Documentation [facility] Name: Coco Melton Age: 84 yrs Sex: Female : 1935 Arrival Date: 05/25/2019 Time: 10:24 Bed 5 Private MD: ED Physician Diana Ngo HPI: 05/25 12:26 This 84 yrs old Female presents to ER via EMS with complaints of Altered ma2 Mental Status, Shortness Of Breath. 12:26 The patient presents with confusion. Onset: The symptoms/episode began/occurred ma2 gradually. Associated signs and symptoms: Pertinent negatives: ataxia, combativeness, diaphoresis. Current symptoms: In the emergency department the patient's symptoms are unchanged from the initial presentation. The patient has not experienced similar symptoms in the past. Historical: - Allergies: 10:33 Codeine; hb - Home Meds: :33 alprazolam 1 mg Oral tab 1 tab nightly [Active]; Clindamycin Oral [Active]; gabapentin hb 300 mg Oral cap 1 cap 3 times per day [Active]; levothyroxine 150 mcg tab 1 tab once daily [Active]; lisinopril-hydrochlorothiazide 20-25 mg Oral tab 1 tab once daily [Active]; Potassium Chloride Oral once daily [Active]; venlafaxine 150 mg Oral cp24 1 cap once daily [Active]; Vitamin D Oral daily [Active]; Xarelto 15 mg Oral tab daily [Active]; metoprolol tartrate 25 mg Oral tab 1 tab 2 times per day [Active]; clopidogrel 75 mg oral tab 1 tab once daily [Active]; lisinopril 20 mg Oral tab 1 tab once daily [Active]; pramipexole 1 mg oral tab [Active]; - PMHx: 10:33 Anxiety; Arthritis; Hypertension; Hypothyroidism; neuropathy; hb - Immunization history:: Adult Immunizations up to date. - Social history:: Smoking status: unknown Patient/guardian denies using alcohol, street drugs, The patient lives with family. - Ebola Screening: : No symptoms or risks identified at this time. - Family history:: not pertinent. ROS: 12:26 Constitutional: Negative for fever, chills, and weight loss, Eyes: Negative for injury, ma2 pain, redness, and discharge. 12:26 All other systems are negative. Exam: 12:26 Constitutional: This is a well developed, well nourished patient who is awake, alert, ma2 and in no acute distress. Neck: Trachea midline, no thyromegaly or masses palpated, and no cervical lymphadenopathy. Supple, full range of motion without nuchal rigidity, or vertebral point tenderness. No Meningismus. Chest/axilla: Normal chest wall appearance and motion. Nontender with no deformity. No lesions are appreciated. Cardiovascular: Regular rate and rhythm with a normal S1 and S2. No gallops, murmurs, or rubs. Normal PMI, no JVD. No pulse deficits. Respiratory: Lungs have equal breath sounds bilaterally, clear to auscultation and percussion. No rales, rhonchi or wheezes noted. No increased work of breathing, no retractions or nasal flaring. Abdomen/GI: Soft, non-tender, with normal bowel sounds. No distension or tympany. No guarding or rebound. No evidence of tenderness throughout. MS/ Extremity: Pulses equal, no cyanosis. Neurovascular intact. Full, normal range of motion. Neuro: samnolent yet arousable to verbal stimulus t, GCS 15, oriented to person, place, time, and situation. Cranial nerves II-XII grossly intact. Motor strength 5/5 in all extremities. Sensory grossly intact. Cerebellar exam normal. Normal gait. Vital Signs: 10:27 BP 143 / 94; Pulse 70; Resp 38; Temp 97.9(A); Pulse Ox 84% on R/A; Weight 120 kg; Pain hb 0/10; 11:30 BP 134 / 78; Pulse 70; Resp 30; Pulse Ox 98% on Nebulizer Mask; hb 12:00 BP 133 / 76; Pulse 70; Resp 26; Pulse Ox 90% on 3 lpm NC; Pain 0/10; hb 13:00 BP 132 / 74; Pulse 70; Resp 28; Pulse Ox 93% on 3 lpm NC; Pain 0/10; hb MDM: 10:29 Patient medically screened. ma2 12:26 Differential Diagnosis: electrolyte abnormality, UTI. Data reviewed: vital signs, ma2 nurses notes. Counseling: I had a detailed discussion with the patient and/or guardian regarding: the historical points, exam findings, and any diagnostic results supporting the discharge/admit diagnosis, the presence of at least one elevated blood pressure reading (>120/80) during this emergency department visit. Response to treatment: the patient's symptoms have markedly improved after treatment. 05/25 10:35 Order name: Blood Culture Adult (2) [facility] 05/25 10:35 Order name: BMP; Complete Time: 11:54 [facility] 05/25 10:35 Order name: CBC with Diff; Complete Time: 11:54 [facility] 05/25 10:35 Order name: Ckmb; Complete Time: 11:54 [facility] 05/25 10:35 Order name: CPK; Complete Time: 11:54 [facility] 05/25 10:35 Order name: D-Dimer; Complete Time: 11:54 [facility] 05/25 10:35 Order name: Hepatic Function; Complete Time: :54 [facility] 05/25 10:35 Order name: Lipase; Complete Time: 11:54 ar05/25 10:35 Order name: Magnesium; Complete Time: 11:54 [facility] 05/25 10:35 Order name: NT PRO-BNP; Complete Time: 11:54 [facility] 05/25 10:35 Order name: PT-INR; Complete Time: 11: [facility] 05/25 10:35 Order name: Ptt, Activated; Complete Time: 11:54 [facility] 05/25 10:35 Order name: Troponin (emerg Dept Use Only); Complete Time: 11: [facility] 05/25 10:35 Order name: Lactate; Complete Time: 11:54 [facility] 05/25 10:35 Order name: XRAY CXR (1 view); Complete Time: 11:54 [facility] 05/25 10:35 Order name: Procalcitonin; Complete Time: 12:24 [facility] 05/25 10:35 Order name: Urine Microscopic Only; Complete Time: 12:38 [facility] 05/25 10:35 Order name: Flu; Complete Time: 11:54 [facility] 05/25 12:24 Order name: Urine Dipstick--Ancillary (enter results) eb 05/25 12:30 Order name: Urine Culture [facility] 05/25 12:38 Order name: ABG [facility] 05/25 12:38 Order name: CT Head Brain wo Cont; Complete Time: 13:24 [facility] 05/25 13:32 Order name: Basic Metabolic Panel [facility] 05/25 13:32 Order name: Basic Metabolic Panel [facility] 05/25 13:32 Order name: CBC with Automated Diff [facility] 05/25 13:32 Order name: CBC with Automated Diff ED[facility] 05/25 10:35 Order name: EKG; Complete Time: 10:37 ma2 05/25 10:35 Order name: Cardiac monitoring; Complete Time: 10:53 ma2 05/25 10:35 Order name: EKG - Nurse/Tech; Complete Time: 10:53 ma2 05/25 10:35 Order name: IV Saline Lock; Complete Time: 10:53 ma2 05/25 10:35 Order name: Labs collected and sent; Complete Time: 10:53 ma2 05/25 10:35 Order name: O2 Per Protocol; Complete Time: 10:53 ma2 05/25 10:35 Order name: O2 Sat Monitoring; Complete Time: 10:53 ma2 05/25 10:35 Order name: Accucheck; Complete Time: 11:24 ma2 05/25 10:35 Order name: IV Saline Lock - Large Bore; Complete Time: 10:53 ma2 05/25 10:35 Order name: Urine Dipstick-Ancillary (obtain specimen); Complete Time: 10:53 ma2 05/25 12:10 Order name: Cath; Complete Time: 12:10 hb 05/25 13:32 Order name: CONS Pharmacy Consult EDMS Administered Medications: 10:45 Drug: AtroVENT Aerosol 0.5 mg Route: Inhalation; hb 10:55 Drug: Albuterol 2.5 mg Route: Inhalation; hb 11:00 Drug: SOLU-Medrol 125 mg Route: IVP; Site: right antecubital; hb 11:30 Follow up: Response: No adverse reaction hb 11:00 Drug: AtroVENT Aerosol 0.5 mg Route: Inhalation; hb 11:00 Drug: Albuterol 2.5 mg Route: Inhalation; hb 11:15 Drug: AtroVENT Aerosol 0.5 mg Route: Inhalation; hb 11:30 Follow up: Response: No adverse reaction hb 11:15 Drug: Albuterol 2.5 mg Route: Inhalation; hb 12:00 Follow up: Response: No adverse reaction hb 11:20 Drug: NS 0.9% 1000 ml Route: IV; Rate: 1 bolus; Site: right antecubital; hb 12:35 Follow up: Response: No adverse reaction; IV Status: Completed infusion; IV Intake: hb 1000ml 11:20 Drug: Rocephin 1 grams Route: IV; Rate: calculated rate; Site: right antecubital; hb 11:22 Follow up: IV Status: Completed infusion; IV Intake: 10ml hb 12:09 Drug: Lasix 40 mg Route: IVP; Site: right antecubital; hb 12:45 Follow up: Response: No adverse reaction hb 12:45 Follow up: Response: No adverse reaction hb 12:10 Drug: AZITHromycin 500 mg Route: IVPB; Infused Over: 1 hrs; Site: right antecubital; hb 13:30 Follow up: Response: No adverse reaction; IV Status: Completed infusion; IV Intake: hb 250ml Disposition: 05/25/19 12:31 Hospitalization ordered by Michael Albright for Inpatient Admission. Preliminary diagnosis are Cystitis, unspecified without hematuria, Altered mental status, unspecified. - Bed requested for Telemetry/MedSurg (Inpatient). - Status is Inpatient Admission. hb - Condition is Stable. - Problem is new. - Symptoms are unchanged. UTI on Admission? Yes Signatures: Dispatcher [employer] EDNayely Pope RN RN Daya Ching RN RN Diana Ngo MD MD ma2 Corrections: (The following items were deleted from the chart) 13:47 12:31 Hospitalization Ordered by Michael Albright MD for Inpatient Admission. Preliminary diagnosis is Cystitis, unspecified without hematuria; Altered mental status, unspecified. Bed requested for Telemetry/MedSurg (Inpatient). Status is Inpatient Admission. Condition is Stable. Problem is new. Symptoms are unchanged. UTI on Admission? Yes. ma2 14:37 13:47 05/25/2019 12:31 Hospitalization Ordered by Michael Albright MD for Inpatient hb Admission. Preliminary diagnosis is Cystitis, unspecified without hematuria; Altered mental status, unspecified. Bed requested for Telemetry/MedSurg (Inpatient). Status is Inpatient Admission. Condition is Stable. Problem is new. Symptoms are unchanged. UTI on Admission? Yes. adwoa
--- NOTE | 2019-05-25 13:04 | RAD REPORT ---
EXAM DESCRIPTION: CT - Head Brain Wo Cont - 05/25/2019 12:55 pm CLINICAL HISTORY: CONFUSED Headache, drowsiness COMPARISON: Head Brain Wo Cont dated 11/13/2017 TECHNIQUE: All CT scans are performed using dose optimization technique as appropriate and may inclu de automated exposure control or mA/KV adjustment according to patient size. FINDINGS: No intracranial hemorrhage, hydrocephalus or extra-axial fluid collection.Mild generalized brain atrophy.No areas of brain edema or evidence of midline shift. The paranasal sinuses and mastoids are clear. The calvarium is intact. IMPRESSION: No acute intracranial abnormality.
[2019-05-25 14:12] LABS: Urine Blood 3+ (NEG); Urine Glucose NEGATIVE (NEG); Urine Protein TRACE (NEG)
[2019-05-25] MEDS: Levofloxacin500mg IV 500 MG/100 ML BAG IV SCH (15:48)
[2019-05-25] MEDS: INSULIN -REGULAR HUMAN 50 UNIT/0.5 ML ML SQ SCH ×2 (16:30→21:00)
[2019-05-25] MEDS: RIVAROXABAN 15 MG TABLET PO SCH (17:58)
[2019-05-25] MEDS: METOPROLOL TAR 25 MG TAB PO SCH (17:58)
[2019-05-25] MEDS: GABAPENTIN 300 MG CAP PO SCH (21:39)
[2019-05-25] MEDS: PRAMIPEXOLE 1 MG TAB PO SCH (21:39)
[2019-05-25] MEDS: MELATONIN 5 MG TABLET PO SCH (21:39)
[2019-05-25] MEDS: ROSUVASTATIN 10 MG TAB PO SCH (21:39)
[2019-05-26] MEDS: ACETAMINOPHEN 500 MG TAB PO PRN ×4 (00:14→21:02)
[2019-05-26] MEDS: LEVOTHYROXINE SOD 0.1 MG TAB PO SCH (05:55)
[2019-05-26] MEDS: METOPROLOL TAR 25 MG TAB PO SCH ×2 (05:56→16:20)
[2019-05-26 06:40] LABS: Absolute Lymphocytes (CBC) 0.8 K/uL (0.7-4.9); Basophils % 0.3 % (0-1.3); Hematocrit 33.2 % (36.0-45.0); Lymphocytes % 9.5 % (15.3-44.8); MPV 8.3 fL (7.6-11.3); RBC Red Blood Cell Count 3.46 M/uL (3.86-4.86)
[2019-05-26 07:02] LABS: Magnesium 2.2 mg/dL (1.8-2.4)
[2019-05-26 07:23] LABS: Potassium 5.8 mmol/L (3.5-5.1)
[2019-05-26] MEDS ORDERED: SOD POLYSTYREN SUL 15 GM/60 ML UCUP PO ONE (07:25)
[2019-05-26] MEDS: INSULIN -REGULAR HUMAN 50 UNIT/0.5 ML ML SQ SCH (07:30)
[2019-05-26] MEDS: GABAPENTIN 300 MG CAP PO SCH (08:14)
[2019-05-26] MEDS: CLOPIDOGREL 75 MG TABLET PO SCH (08:15)
[2019-05-26] MEDS ORDERED: FUROSEMIDE 40 MG TABLET PO SCH (09:00)
[2019-05-26] MEDS ORDERED: lisinopriL 20 MG TAB PO SCH (09:00)
[2019-05-26] MEDS ORDERED: BACLOFEN 10 MG TAB PO SCH (09:00)
[2019-05-26] MEDS ORDERED: FUROSEMIDE 40 MG/4 ML VIAL IV ONE (13:00)
--- NOTE | 2019-05-26 13:19 | PN ---
Date of Progress Note: 05/26/2019 Patient is not having much significant change according to her daughter and the patient. Her memory has been impaired as of late. She is falling asleep rather easily and according to the daughter, she has put on at least 30 pounds over the past few months. She does look like a change in fluid compar ed to what she had before anasarca with obvious possibility. Her face is swollen. Her legs are decr eased somewhat. However, she has been in the lymphedema therapy and was lapping up. She also has an area of cellulitis under breasts, which were also quite erythematous upper body and therefore since he increased her potassium level since she has been in the hospital as well. Kayexalate was given. Lasix extra dose will be given and consultation obtained with Nephrology and Cardiology. Discussion with the family. She was a DNR and was so noted. HR/MODL Voice ID: [id number] Report ID: [id number]
[2019-05-26 13:28] LABS: Urine Protein/Creatinine Ratio 0.32 ratio (<0.15)
--- NOTE | 2019-05-26 14:01 | EKG ---
Test Date: 2019-05-25 Test Time: 10:50:17 Stave Jointer: NIDHI MEASUREMENT RESULTS: Intervals: Rate: 70 VT: QRSD: 156 QT: 448 QTc: 483 [place]: P: VT: QRS: -72 T: 95 INTERPRETIVE STATEMENTS: Ventricular-paced rhythm Abnormal ECG Compared to ECG 03/17/2019 10:52:04 No significant changes Electronically Signed On 05-26-19 13:59:08 PIPELINES MANAGER by Luis Sommers
[2019-05-26] MEDS: Levofloxacin500mg IV 500 MG/100 ML BAG IV SCH (14:07)
--- NOTE | 2019-05-26 15:11 | RAD REPORT ---
EXAM DESCRIPTION: US - Renal Ultrasound-Complete - 05/26/2019 2:38 pm CLINICAL HISTORY: Acute kidney injury COMPARISON: CT study March 2019 FINDINGS: The right kidney measures 11.3 x 5.3 x 5.0 cm. The left kidney measures 10.3 x 5.9 x 6.1 cm. Renal cortical thickness and echogenicity are normal. No hydronephrosis or suspicious renal mass. Lower pole of the right kidney is not well visualized due to bowel. Likelihood of an abnormality is felt to be low. Urinary bladder only partially filled and poorly visualized. IMPRESSION: No hydronephrosis or suspicious renal mass. Limited visualization of the lower pole right kidney. Likelihood of abnormality is very low.
--- NOTE | 2019-05-26 16:04 | HP ---
Date of Admission: 05/25/2019 Chief Complaint: Shortness of breath, altered mental status. History Of Present Illness: Most of this history was obtained from the daughter. She states that on Monday, she seem to be usual self being in the [facility] in the past few months since she was dis charged from the hospital in [place] in March with a stent placement. However, on Monday, she w as quite confused and was falling asleep more easily than she had been, although apparently she had b een doing this for a little while. In any event, she also complained of some dyspnea and she was sandee te edematous and was brought to the emergency room. She was admitted for further treatment. Past History: Patient has had significant cardiac problems in the past as well as C and S necessitat ing a pacemaker and stents and various medications. There was some question on after the procedure, whether or not she needed some dialysis at one time. However, apparently this was resolved without d oing that. Social History: Nonsmoker, nondrinker. Family History: Noncontributory. Physical Examination: General: Patient is an elderly, somewhat confused female. Vital Signs: Stable. Head and Neck: Normocephalic. Pupils equal and reactive to light and accommodation. Fundi negative . Trachea midline. Thyroid not palpable. ENT: Negative. Chest: High-pitched rhonchi and rales bilaterally. Left breast normal. Right breast edematous area of cellulitis on the inferior aspect and some fungal dermatitis inferior to this. Cardiovascular: PMI midclavicular line. Heart sounds normal. Peripheral pulses are present and equ al bilaterally. Abdomen: Nontender, edematous appearing. No organomegaly. Bowel sounds hypoactive. Extremities: Significant edema of face and left arm, somewhat less on the right arm. Legs are decre ased. However, as mentioned, they have been wrapped to treatment of edema. Rectal/Pelvic: Deferred. Impression: Altered mental status, possibly secondary to urinary tract infection; coronary artery di sease by history, pacemaker; hypertension, controlled. Plan: Patient will be admitted and placed on IV antibiotics, IV diuretics, and depending on the resu lts of blood tests, further more aggressive treatment may be needed. Consultations were obtained as warranted. HR/MODL Voice ID: [id number]
[2019-05-26] MEDS: RIVAROXABAN 15 MG TABLET PO SCH (16:19)
[2019-05-26] MEDS: FUROSEMIDE 40 MG/4 ML VIAL IV SCH (16:20)
[2019-05-26] MEDS: MELATONIN 5 MG TABLET PO SCH (20:41)
[2019-05-26] MEDS: ROSUVASTATIN 10 MG TAB PO SCH (20:41)
[2019-05-26] MEDS: PRAMIPEXOLE 1 MG TAB PO SCH (20:41)
[2019-05-26] MEDS: GABAPENTIN 400 MG CAP PO SCH (20:41)
[2019-05-26] MEDS ORDERED: TEMAZEPAM 15 MG CAP PO PRN (20:51)
--- NOTE | 2019-05-26 20:54 | CON ---
Date of Consultation: 05/26/2019 Reason For Consultation: Shortness of breath and anasarca. History Of Present Illness: Ms. Melton is 84. She has a history of hypertension, atrial fibrillati on. She has a pacemaker. She has a history of hypothyroidism, anxiety, and arthritis, came in with sepsis, altered mental status, found to have anasarca. Denied any chest pain denied any nausea or vo miting or fevers or chills. Denied any syncope or palpitation, but has had edema, PND, and orthopnea . Allergies: MORPHINE, OPIOIDS, AND CODEINE. Review of Systems: Positive for being a DNR. Social History: Negative. Family History: Negative. Medications: Include Xanax, Xarelto, Neurontin, metoprolol, Plavix, Synthroid, lisinopril with hydro chlorothiazide, and potassium. Physical Examination: General: Ms. Melton was in no acute distress. She was in a sinus rhythm. She has morbid obesity. Vital Signs: Stable, however, she was afebrile. HEENT: Negative. Neck: Supple without any bruit, lymphadenopathy, JVD, or thyromegaly. Chest: Revealed rales in both bases. Abdomen: Obese. Extremities: Reveals 1+ to 2+ edema all the way to the thighs. She had a CT of her head which was negative. A chest x-ray showed mild congestive heart failure. An echocardiogram in 2019 showed a normal ejection fraction with a pacemaker. BNP was 1590. Impression And Plan: 1.Possible acute diastolic congestive heart failure. We will get an echocardiogram, consider renal consultation. Continue her present medication. I would stop the lisinopril with hydrochlorothiazide , use IV Lasix instead. 2.Hypertension, well controlled. 3.Atrial fibrillation, on metoprolol and Xarelto. 4.History of pacemaker, functioning appropriately last checked 11 months ago. Her other problems in clude hypothyroidism, anxiety, and arthritis. We will continue to follow her with Dr. Albright. We w ill see how she does with IV Lasix and see what the echocardiogram shows. HANS/KELLYL Voice ID: [id number] Report ID: [id number]
[2019-05-26] MEDS: CLOTRIMAZ/BETAMETH CREAM 15GM TOP SCH (21:00)
--- NOTE | 2019-05-26 21:10 | CON ---
Reason For Consultation: Anasarca. History Of Present Illness: This is a pleasant 84-year-old female with significant past medical hist ory of hypertension; coronary artery disease, status post PTCA and ICD; chronic kidney disease. christiano jenkins the record, her baseline creatinine around 1.1 to 1.5 back in March 2019 with GFR 31, questi onable of needing renal replacement therapy. AFib, pulmonary hypertension, as by echocardiogram done before. Apparently, patient was in her regular state of health in [facility]. The patient in the last few days starting over the weekend, started to be confused, more sleepy with shortness of breat h and increased leg swelling. For that reason, patient was brought to the hospital. In the hospital , patient was started on diuresis. Patient's lab workup showed elevation in BUN and creatinine. For that reason, we have been consulted and because of the anasarca. According to the family, there is no recent change in her medication. Past Medical History: Includes: 1.Hypertension. 2.AFib. 3.Pulmonary hypertension. 4.Chronic kidney disease. Baseline creatinine 1.5, GFR of 31, as by March 2019. 5.AFib. Social History: Lives in [facility]. Denies smoking. Denies drinking. Denies drug abuse. Family History: Positive for hypertension. Past Surgical History: Noncontributory. Review of Systems: Head and Neck: No red eye. No ear pain. GI: Decreased intake. : No polyuria, no dysuria, no hematuria. RETAIL CLIENT SOLUTIONS ANALYST: No vaginal discharge. Respiratory: Has orthopnea. Has leg swelling. Has shortness of breath. Cardiovascular: Has orthopnea. Has leg swelling. Endocrine: No polydipsia. Skin: No rash. Neuro: Confused. Musculoskeletal: Has low back pain. Physical Examination: Vital Signs: When I saw the patient, blood pressure of 117/73, pulse of 59, afebrile. Chest: Crackles at bilateral base. Heart: S1, S2. Systolic murmur. Abdomen: Soft, nontender. Extremities: +1 edema. Neuro: Alert. No focal. Laboratory Data: The patient's renal ultrasound, 11.3/10.3, bladder partially filled. Chest x-ray; cardiomegaly with congestion with pleural effusion on the left side, compared to old chest x-ray look ed more congested. Sodium 144, potassium 5.8, bicarb 32, BUN 32, creatinine 1.2, GFR of 41, calcium 9.1, magnesium 2.2, albumin of 3.4. WBC 8.1, H and H 10.5/33.2, platelets 253. Current Medications: The patient on include: 1.Z-Isaias. 2.Levaquin 500 daily. 3.Plavix. 4.Xarelto. 5.Metoprolol 25 b.i.d. 6.Crestor. 7.Gabapentin. 8.MiraLax. 9.Lasix 40 p.o. 10.Kayexalate. 11.Levothyroxine. 12.Melatonin. Assessment And Plan: 1.Chronic kidney disease, normal size kidney, secondary to hypertension nephrosclerosis/cardiorenal over-volume. I am going to increase Lasix to 40 mg b.i.d., and we will monitor the patient. 2.Hyperkalemia. I am going to go ahead and send for TSH, anemia workup, and we will follow up. 3.Giving the presence of acute kidney injury, light chain disease need to be ruled out. I am going to go ahead and send for serum protein electrophoresis. 4.Anasarca secondary to pulmonary hypertension, questionable hypothyroidism. Protein/creatinine onl y 0.3, so doubt to be secondary to proteinuria. I am going to go ahead and increase the Lasix to 40 mg b.i.d. and we will decrease her beta-anthony to 12.5 to allow more blood pressure for diuresis and we will follow up the patient. ANALI/GAYLA Voice ID: [id number] Report ID: [id number]
[2019-05-27 05:07] LABS: Absolute Lymphocytes (CBC) 1.2 K/uL (0.7-4.9); Basophils % 0.6 % (0-1.3); Hematocrit 36.1 % (36.0-45.0); Lymphocytes % 11.2 % (15.3-44.8); MPV 7.7 fL (7.6-11.3); RBC Red Blood Cell Count 3.71 M/uL (3.86-4.86)
[2019-05-27 05:41] LABS: Albumin 2.9 g/dL (3.4-5.0); Ferritin 14.3 ng/mL (8-388); Folic Acid, (Folate) 7.9 ng/mL (3.1-17.5); Phosphorus 4.7 mg/dL (2.5-4.9); Potassium 5.4 mmol/L (3.5-5.1)
[2019-05-27 05:45] LABS: Thyroid Stimulating Hormone 10.9 uIU/mL (0.360-3.740)
[2019-05-27] MEDS: LEVOTHYROXINE SOD 0.1 MG TAB PO SCH (06:20)
[2019-05-27] MEDS: METOPROLOL TAR 25 MG TAB PO SCH ×2 (06:21→16:59)
[2019-05-27] MEDS: Meropenem 1,000 MG in NA CHLORIDE 0.9% 100 ML IV SCH ×2 (08:00→20:18)
[2019-05-27] MEDS: GABAPENTIN 400 MG CAP PO SCH (08:33)
[2019-05-27] MEDS: CLOPIDOGREL 75 MG TABLET PO SCH (08:33)
--- NOTE | 2019-05-27 08:49 | EKG ---
Test Date: 2019-05-26 Test Time: 13:04:01 Hospital Admissions Officer: FLASH MEASUREMENT RESULTS: Intervals: Rate: 70 [place]: QRSD: 154 QT: 438 QTc: 473 [place]: P: DE: QRS: -76 T: 99 INTERPRETIVE STATEMENTS: Electronic ventricular pacemaker Compared to ECG 05/25/2019 10:50:17 No significant changes Electronically Signed On 05-27-19 08:48:31 SALES AND MANAGEMENT TRAINEE by Jesse Bentley
[2019-05-27] MEDS ORDERED: Meropenem 1000 MG/VIAL IV SCH (09:00)
[2019-05-27] MEDS: FUROSEMIDE 40 MG/4 ML VIAL IV SCH ×2 (09:00→16:48)
[2019-05-27] MEDS: CLOTRIMAZ/BETAMETH CREAM 15GM TOP SCH ×2 (10:16→20:23)
[2019-05-27] MEDS ORDERED: SOD POLYSTYREN SUL 15 GM/60 ML UCUP PO ONE (12:05)
[2019-05-27] MEDS ORDERED: NA CHLORIDE 0.9% 1,000 ML IV SCH (13:00)
[2019-05-27 13:13] LABS: Arterial Blood Carboxyhemoglob 1.4 % (0-1.5); Blood Gas Oxyhemoglobin 93.6 % (94-97); Blood O2 Saturation 95.7 % (92-98.5)
[2019-05-27 14:53] LABS: Arterial Blood Carboxyhemoglob 1.6 % (0-1.5); Blood Gas Oxyhemoglobin 96.1 % (94-97); Blood O2 Saturation 98.4 % (92-98.5)
--- NOTE | 2019-05-27 16:45 | P.CNS ---
Date of Consult: 05/27/19 Reason for Consult: Resp failure and AMS Chief Complaint: AMS and resp fialure History of Present Illness: Pt is 84 yrs of age AW AMS, renal failure and hyperkalemai. Also has resp failure. PT is able to ambulate and walk to the [facility]. No Hx of dementia or stroke. Recent hx of stent placement. ESCL isolated in urine Allergies codeine Allergy (Verified 03/17/19 20:12) Itching Opioids - Morphine Analogues Adverse Reaction (Verified 03/17/19 20:12) Hypoxia, hallucinations, confusion Home Medications: Baclofen [Lioresal*] 10 mg PO BEDTIME 03/17/19 Cranberry 450 mg PO BID 03/17/19 Gabapentin 600 mg PO BID 03/17/19 Levothyroxine Sodium 150 mcg PO DAILY 03/17/19 Magnesium Oxide 400 mg PO BID 03/17/19 Melatonin 10 mg PO BEDTIME 03/17/19 Metoprolol Succinate [Toprol Xl*] 25 mg PO BID 03/17/19 Potassium Chloride [Klor-Con M10] 20 meq PO DAILY 03/17/19 Pramipexole [Mirapex*] 1 mg PO DAILY 03/17/19 Rosuvastatin [Crestor*] 10 mg PO DAILY 03/17/19 lisinopriL [Prinivil*] 20 mg PO DAILY 03/17/19 Furosemide [Lasix] 40 mg PO DAILY 60 Days #60 tab 03/19/19 Acetaminophen [Tylenol Extra Strength] 2 tab PO Q4H PRN 05/25/19 Clopidogrel Bisulfate [Plavix*] 1 tab PO DAILY 05/25/19 Rivaroxaban [Xarelto*] 1 tab PO BEDTIME 05/25/19 - Past Medical/Surgical History Diabetic: No -: Hypertension -: Atrial fibrillation -: Hypothyroidism -: Depression -: Neuropathy -: RLS -: [place] -: CAD -: Appendectomy -: Cholesystectomy -: Hysterectomy -: Instemi -: fractured femur -: Score is stents - Family History Father Medical History: Heart disease Mother Notes: old age - Social History Smoking Status: Unknown if ever smoked Alcohol use: No CD- Drugs: No Caffeine use: Yes [facility]idence[facility] Review of Systems is unable to be obtained Physical Examination Temp Pulse Resp BP Pulse Ox 96.8 F 66 30 H 97/43 L 96 01/20/20 12:00 05/27/19 12:00 05/27/19 12:00 05/27/19 12:00 05/27/19 12:00 General: Unresponsive Neck: Supple Respiratory: Clear to auscultation bilaterally, Diminished Cardiovascular: Edema (bialteral edema) Gastrointestinal: Normal bowel sounds, Soft and benign Musculoskeletal: No clubbing Integumentary: No rashes, No significant lesion - Problems (1) Respiratory failure Current Visit: Yes Status: Acute Plan: PT admitted with AMS , ESBl sepsis and resp failure. On BIPAP. Ct head. CXRY effusion and ILD. BP low S/B nephrology. Stop Meds that may affect MS, Gabapentin,Requip and Temazepam. Add Thiamine. On Merem. TSH mild elevation REsp failure acute Normal LVEF Cellulitis under breasts Right. fungal .Recent of Stent placement Qualifiers: Chronicity: unspecified Respiratory failure complication: hypoxia and hypercapnia Qualified Code(s): J96.91 - Respiratory failure, unspecified with hypoxia; J96.92 - Respiratory failure, unspecified with hypercapnia
[2019-05-27] MEDS: RIVAROXABAN 15 MG TABLET PO SCH (16:46)
[2019-05-27] MEDS: THIAMINE 200 MG/2 ML INJ IVP SCH (17:57)
[2019-05-27 19:38] LABS: Arterial Blood Carboxyhemoglob 1.5 % (0-1.5); Blood Gas Oxyhemoglobin 93.2 % (94-97); Blood O2 Saturation 95.2 % (92-98.5)
--- NOTE | 2019-05-27 20:08 | PN ---
Date of Progress Note: 05/27/2019 Patient's condition is deteriorated somewhat. As far as her mental status is concerned, quite lethar gic, obviously when sick. Blood gases were done. This was secondary to CO2 retention. Once the BiP AP was utilized, this improved considerably. Pulmonary consultation was also obtained. Urinary trac t revealed E coli with ESBL and meropenem was started for this. Overall condition remained unstable, although her creatinine and potassium are now at normal levels. We will continue to monitor and hav e Infectious Disease consulted for cellulitis of the breast and ESBL if available. HR/MODL Voice ID: [id number] Report ID: [id number]
[2019-05-27] MEDS: ACETAMINOPHEN 500 MG TAB PO PRN (21:23)
[2019-05-28] MEDS ORDERED: NA CHLORIDE 0.9% 1,000 ML IV SCH (01:00)
--- NOTE | 2019-05-28 01:24 | PN ---
Date of Progress Note: 05/27/2019 Chief Complaint: Urinary tract infection. History Of Present Illness: Patient developed altered mental status, was found to have severe respiratory acidosis. The patient has multiple medical problems. She was admitted for altered mental status, was found to have urinary tract infection, is started on antibiotics. Patient had a CT scan done in the emergency room and no acute changes were demonstrated on the CT scan of the brain. Patient is started on antibiotics for urinary tract infection. Blood cultures were obtained today. In view of hypotension, troponin level was checked. The patient became obtunded today and workup showed slightly elevated ammonia, severe respiratory acidosis, so the patient was started on BiPAP. Review of Systems: Patient can open her eyes, but does not answer questions. Physical Examination: Lungs: Coarse breath sounds bilaterally. Heart: S1, S2. No pericardial friction rub. Abdomen: Soft, benign, nontender. Extremities: No edema. Impression: 1. Urinary tract infection. Continue antibiotics. Reevaluate urine culture and blood culture. Adjust antibiotics with broad spectrum and when culture result is available, plan is to adjust antibiotics according to urine culture. 2. Hypotension, borderline. The patient will continue IV fluids with normal saline to prevent renal hypoperfusion. 3. Respiratory acidosis. BiPAP is started to treat respiratory acidosis. Monitor mental status changes. 4. Hypertension. Blood pressure medications on hold due to borderline hypotension. The patient cannot take midodrine due to possible dysphagia. Patient may need a speech therapy clearance. I spent total 35 min including 25 min to coordinate care plan. TEJINDER/GAYLA Voice ID: [id number] Report ID: [id number] ADRIANO
[2019-05-28] MEDS ORDERED: DOPAMINE/D5W 400 MG/250 ML BAG IV PRN (01:30)
[2019-05-28] MEDS: LEVOTHYROXINE SOD 0.1 MG TAB PO SCH (05:46)
[2019-05-28] MEDS: METOPROLOL TAR 25 MG TAB PO SCH ×2 (05:47→17:04)
[2019-05-28 06:40] LABS: Albumin 2.6 g/dL (3.4-5.0); Phosphorus 3.8 mg/dL (2.5-4.9); Potassium 5.1 mmol/L (3.5-5.1)
[2019-05-28 06:41] LABS: Potassium 5.2 mmol/L (3.5-5.1)
[2019-05-28 07:31] LABS: Arterial Blood Carboxyhemoglob 1.5 % (0-1.5); Blood Gas Oxyhemoglobin 90.1 % (94-97); Blood O2 Saturation 92.1 % (92-98.5)
[2019-05-28] MEDS: ACETAMINOPHEN 500 MG TAB PO PRN ×3 (07:43→20:52)
[2019-05-28] MEDS: Meropenem 1,000 MG in NA CHLORIDE 0.9% 100 ML IV SCH ×2 (07:43→20:37)
[2019-05-28] MEDS: CLOPIDOGREL 75 MG TABLET PO SCH (07:43)
[2019-05-28] MEDS: THIAMINE 200 MG/2 ML INJ IVP SCH (07:44)
[2019-05-28] MEDS ORDERED: NA CHLORIDE 0.9% 500 ML IV ONE (08:07)
[2019-05-28] MEDS: FUROSEMIDE 40 MG/4 ML VIAL IV SCH ×3 (08:08→20:37)
--- NOTE | 2019-05-28 08:20 | P.PN ---
Subjective Date of Service: 05/28/19 Chief Complaint: Hypotension respiratory failure Subjective: Improving (Patient is doing well she is more alert responsive cooperative for pressure locally on low-dose dopamine) Patient has a history of chronic respiratory failure apparently she had a hip fracture last seen in [place] and ending to altered mental study respiratory failure patient refuses to wear the a BiPAP has loud snoring excessive daytime somnolence property obesity hypoventilation syndrome has never smoked Review of Systems General: Weakness Physical Examination - Vital Signs Temperature: 97.8 F Blood Pressure: 100/48 Pulse: 70 Respirations: 20 Pulse Ox (%): 98 - Physical Exam General: Alert, In no apparent distress, Oriented x3 Neck: Supple Respiratory: Clear to auscultation bilaterally, Diminished Cardiovascular: Edema (Bilateral edema) Gastrointestinal: Normal bowel sounds, Soft and benign - Studies Microbiology Data (last 24 hrs): 05/25/19 12:16 Clean Catch Urine [place] Count - Final BETWEEN 10,000 & 100,000 CFU/ML 05/25/19 12:16 Clean Catch Urine - Final Escherichia Coli Esbl Assessment & Plan - Problems (Diagnosis) (1) Respiratory failure Current Visit: Yes Status: Acute Plan: The patient has respiratory failure. I suspect chronic she is hypoxic hypercapnic I strongly suspect that she has underlying obstructive sleep apnea loud snoring and excessive daytime somnolence possible apneic spells he has had again I suspect chronic respiratory failure similar episode happened in [place] last year refuses to wear a BiPAP according to the daughter the need an outpatient sleep study reduce dose of gabapentin 300 mg twice a day to prevent withdrawal I have also advised the patient to the good Perch is a BiPAP machine the take awhile to get a sleep study done Qualifiers: Chronicity: unspecified Respiratory failure complication: hypoxia and hypercapnia Qualified Code(s): J96.91 - Respiratory failure, unspecified with hypoxia; J96.92 - Respiratory failure, unspecified with hypercapnia
[2019-05-28] MEDS: GABAPENTIN 300 MG CAP PO SCH ×2 (09:00→20:38)
--- NOTE | 2019-05-28 10:00 | ECHO ---
HEIGHT: 5 ft 9 in WEIGHT: 281 lb 12.8 oz DATE OF STUDY: 05/27/[address]: Michael Albright MD 2-DIMENSIONAL: YES M.MODE: YES DOPPLER: YES COLOR FLOW: YES TDS: YES PORTABLE: NO DEFINITY: NO BUBBLE STUDY: NO DIAGNOSIS: CONGESTIVE HEART FAILURE CARDIAC HISTORY: CATHERIZATION: YES SURGERY: NO PROSTHETIC VALVE: NO PACEMAKER: YES MEASUREMENTS (cm) DIASTOLIC (NORMALS) SYSTOLIC (NORMALS) IVSd 0.9 (0.6-1.2) LA Diam 5.1 (1.9-4.0) LVEF 60-69% LVIDd 5.6 (3.5-5.7) LVIDs 4.1 (2.0-3.5) %FS 27% LVPWd 1.1 (0.6-1.2) Ao Diam 3.0 (2.0-3.7) 2 DIMENSIONAL ASSESSMENT: RIGHT ATRIUM: NORMAL LEFT ATRIUM: DILATED RIGHT VENTRICLE: PACEMAKER IN RIGHT VENTRICULAR LEFT VENTRICLE: NORMAL TRICUSPID VALVE: NORMAL MITRAL VALVE: NORMAL PULMONIC VALVE: NORMAL AORTIC VALVE: NORMAL PERICARDIAL EFFUSION: NONE AORTIC ROOT: NORMAL LEFT VENTRICULAR WALL MOTION: NORMAL. DOPPLER/COLOR FLOW: MILD TRICUSPID REGURGITATION. MILD PULMONARY HYPERTENSION, ESTIMATED RIGHT VENTRICULAR SYSTOLIC PRESSURE 40mmHg. COMMENTS: NORMAL LEFT VENTRICULAR EJECTION FRACTION. DILATED LEFT ATRIUM. MILD TRICUSPID REGURGITATION. MILD PULMONARY HYPERTENSION. PACEMAKER CATHETER NOTED IN RIGHT VENTRICULAR [employer]. TECHNOLOGIST: CESAR KAUFMAN
--- NOTE | 2019-05-28 11:44 | RAD REPORT ---
EXAM DESCRIPTION: RAD - Chest Single View - 05/28/2019 2:25 am CLINICAL HISTORY: PICC Placement COMPARISON: None. TECHNIQUE: XR CHEST 1 VIEW 05/28/2019 2:04 AM LABORATORY TECHNICIAN FINDINGS: The heart is enlarged. Left pacemaker is present. There is mild pulmonary edema. There is a small left pleural effusion. There is no pneumothorax. There are no acute osseous findings. Right P ICC line tip is in the mid SVC. IMPRESSION: Right PICC line tip in appropriate position. Electronically signed by: Cristino Beckett MD 05/28/2019 2:40 AM LABORATORY TECHNICIAN Due to temporary technical issues with the PACS/Fluency reporting system, reports are being signed by the in house radiologist as a courtesy to ensure prompt reporting. The interpreting radiologist is f ully responsible for the content of the report.
[2019-05-28] MEDS: CLOTRIMAZ/BETAMETH CREAM 15GM TOP SCH ×2 (13:10→20:37)
--- NOTE | 2019-05-28 13:20 | P.PN ---
Subjective Date of Service: 05/28/19 Chief Complaint: Hypotension respiratory failure Subjective: No new changes subjective Pt with CKD, CHF, COPD , Afib admitted for SOB Today rales on exam ,CXR with edema, lasix was on hold yesterday , will redume still on Dopamine drip Cr slightly trending up I/o Daily WT Physical exam general: AAOX3, NAD , obese Neck; Supple, No elevated JVD hear: RRR, normal S1,2 no murmur or rub Chest: Basal rales Abdomen: Soft , Nt Extremities Edema +1 with upper extremity +2 Physical Examination - Vital Signs Temperature: 97.8 F Blood Pressure: 100/48 Pulse: 70 Respirations: 20 Pulse Ox (%): 98 - Studies Microbiology Data (last 24 hrs): 05/25/19 12:16 Clean Catch Urine [place] Count - Final BETWEEN 10,000 & 100,000 CFU/ML 05/25/19 12:16 Clean Catch Urine - Final Escherichia Coli Esbl Assessment And Plan - Plan CKD III Cr slightly tending up due to cardiorenal syndrome will resume lasix Anasarca minimal proteinuric will resume lasix CHF cont lasix and dopamine COPD cont inhalers , O2 and biPPA as per pulmomnary
--- NOTE | 2019-05-28 15:29 | PN ---
Date of Progress Note: 05/27/2019 Ms. Melton had came in with UTI, hypertension, congestive heart failure. Echocardiogram has been do ne, but the report is pending. She had done well with antibiotics and diuresis. The blood pressure is better controlled. She remains in sinus rhythm. Afebrile. From our standpoint, she can go home whenever it is okay with Dr. Albright. We will see her in the office as an outpatient. HANS/GAYLA Voice ID: [id number] Report ID: [id number]
--- NOTE | 2019-05-28 16:17 | CON ---
History Of Present Illness: This is an 84-year-old female I was consulted for ESBL urinary tract inf ection and sepsis. Patient is not a good historian. She is on a BiPAP machine at home. She stays w ithout oxygen at the assisted living. Denies any chest pain, abdominal pain, constipation, or diarrh ea. No burning urination at this time. Patient was brought in for confusion and able to fall in sle ep without able to wake up even on pressure. Patient denies any other problems at this time. Past Medical History: Congestive heart failure, pacemaker placement with stent, hypothyroidism, morb id obesity. Social History: Nonsmoker, nondrinker. Family History: Noncontributory. Medications: Meropenem. See MAR for other medications. Allergies: CODEINE, OPIOIDS, AND MORPHINE. Review of Systems: A 10-point review was performed. Physical Examination: General: This is an 84-year-old female, lying in bed, on BiPAP machine. Vital Signs: Temperature 97.8, pulse 70, respirations 20, blood pressure 121/47. HEENT: Unremarkable. Neck: Supple. Lungs: Basal crackles. Heart: S1, S2. Regular. Abdomen: Soft. Bowel sounds present. Obese. Extremities: 3+ edema upper and lower extremity. Laboratory Data: Shows WBC 10.8, hemoglobin 11.2, platelets are 230. Chemistry shows sodium 142, po tassium 5.2, chloride 106, bicarb 32, BUN 50, creatinine 1.7, glucose is 108. Micro data shows urine culture growing E coli ESBL sensitive to meropenem. X-ray shows the patient has mild pulmonary dotty a and left pleural effusions. PICC line in place. Assessment And Plan: 84-year-old female coming in with urosepsis, altered mental status and extended spectrum beta-lactamase Escherichia coli in the urine. No bacteremia noted. No leukocytosis. No f janusz at this time. Most likely secondary to altered immune system because of age. Patient to myke nue antibiotic for at least 5-7 days. Repeat cultures after 5 days. If necessary, continue antibiot ic after that. Otherwise, 5-7 days of antibiotics should be sufficient. We will follow the patient as needed. Thank you Dr. Albright for consult. MARCO/GAYLA Voice ID: [id number] Report ID: [id number]
[2019-05-28] MEDS: RIVAROXABAN 15 MG TABLET PO SCH (17:04)
[2019-05-29 03:30] LABS: HBsAG Nonreactive (Nonreactive)
[2019-05-29] MEDS: ACETAMINOPHEN 500 MG TAB PO PRN ×4 (03:31→18:26)
[2019-05-29 05:27] LABS: Albumin 2.4 g/dL (3.4-5.0); Phosphorus 2.9 mg/dL (2.5-4.9); Potassium 5.1 mmol/L (3.5-5.1)
[2019-05-29 06:20] LABS: Blood O2 Saturation 98.5 % (92-98.5)
[2019-05-29 06:21] LABS: Arterial Blood Carboxyhemoglob 1.6 % (0-1.5); Blood Gas Oxyhemoglobin 96.3 % (94-97)
[2019-05-29] MEDS: METOPROLOL TAR 25 MG TAB PO SCH ×2 (06:27→17:00)
[2019-05-29] MEDS: LEVOTHYROXINE SOD 0.1 MG TAB PO SCH (06:27)
--- NOTE | 2019-05-29 08:16 | P.PN ---
Subjective Date of Service: 05/29/19 Chief Complaint: Respiratory failure Patient is doing much better much more alert responsive oriented cooperative tolerating BiPAP Review of Systems General: Weakness Respiratory: Shortness of Breath Physical Examination - Vital Signs Temperature: 98 F Blood Pressure: 114/54 Pulse: 70 Respirations: 20 Pulse Ox (%): 99 - Physical Exam General: Alert, In no apparent distress, Cooperative Respiratory: Clear to auscultation bilaterally Cardiovascular: Regular rate/rhythm, Normal S1 S2, Edema (2+ edema) Assessment & Plan - Problems (Diagnosis) (1) Respiratory failure Current Visit: Yes Status: Acute Plan: Patient admitted with respiratory failure presume chronic BiPAP has been ordered patient is stable to be transferred to the floor continue with Lasix transfer to the floor antibiotics for maximum 5-7 days as per ID Qualifiers: Chronicity: unspecified Respiratory failure complication: hypoxia and hypercapnia Qualified Code(s): J96.91 - Respiratory failure, unspecified with hypoxia; J96.92 - Respiratory failure, unspecified with hypercapnia
[2019-05-29] MEDS: Meropenem 1,000 MG in NA CHLORIDE 0.9% 100 ML IV SCH ×2 (09:29→21:15)
[2019-05-29] MEDS: THIAMINE 200 MG/2 ML INJ IVP SCH (10:02)
[2019-05-29] MEDS: FUROSEMIDE 40 MG/4 ML VIAL IV SCH ×2 (10:03→17:01)
[2019-05-29] MEDS: GABAPENTIN 300 MG CAP PO SCH ×2 (10:03→21:16)
[2019-05-29] MEDS: acetaZOLAMIDE 250 MG TAB PO SCH (10:03)
[2019-05-29] MEDS: CLOTRIMAZ/BETAMETH CREAM 15GM TOP SCH ×2 (10:03→21:16)
[2019-05-29] MEDS: CLOPIDOGREL 75 MG TABLET PO SCH (10:03)
--- NOTE | 2019-05-29 16:07 | PN ---
Subjective: Patient lying in bed, feeling slightly better. Still short of breath. Denies any heada francy, nausea, vomiting, chest pain, abdominal pain, constipation, or diarrhea. Objective: Vital Signs: Temperature 98, pulse 70, respirations 20, blood pressure 117/60. Lungs: Basal crackles. Heart: S1, S2. Regular. Abdomen: Soft, nontender. Bowel sounds present. Extremities: 2+ edema. Laboratory Data: Reviewed. Assessment And Plan: 1.Urinary tract infection secondary to extended spectrum beta-lactamase Escherichia coli. Continue supportive care and repeat urinalysis and cultures tomorrow. Blood cultures are negative for 24 hour s. 2.Pulmonary edema, possible pneumonitis and chronic obstructive pulmonary disease exacerbation. Con tinue antibiotic and supportive care. We will follow patient as needed. NF/MODL Voice ID: [id number] Report ID: [id number]
[2019-05-29] MEDS: RIVAROXABAN 15 MG TABLET PO SCH (16:59)
[2019-05-29 22:21] LABS: Albumin, (SPE) 2.8 g/dL (3.8-4.8); Alpha-1-Globulins 0.3 g/dL (0.2-0.3); Alpha-2-Globulins 0.8 g/dL (0.5-0.9); Gamma Globulins 1.3 g/dL (0.8-1.7); INTERPRETATION REPORT
--- NOTE | 2019-05-30 00:13 | PN ---
Date of Progress Note: 05/29/2019 History: The patient was admitted with hyperkalemia, acute kidney injury secondary to prerenal. The patient treated, recovered very well. Physical Examination: Vital Signs: Blood pressure of 105/51, pulse of 70. Chest: Clear to auscultation. Heart: S1, S2. Regular. Abdomen: Soft, nontender. Extremities: +1 edema. Laboratory Data: H and H 11.2 and 36.1. Sodium 143, potassium 5.1, bicarb 36, BUN 46, creatinine 1. 4, calcium 8.7, phosphor 2.9, albumin 2.2. Current Medications: The patient is on include, 1.Meropenem. 2.Xarelto. 3.Plavix. 4.Metoprolol. 5.Gabapentin. 6.Pepcid. 7.Levothyroxine. 8.Acetazolamide. 9.Lasix 40 b.i.d. 10.Thiamine. Assessment And Plan: 1.Acute kidney injury secondary to prerenal, recovered, resolved. Currently, slightly on the wet si de. We are going to continue current diuresis dose. 2.Hyperkalemia, resolved. Continue diuresis. 3.Hypercapnic respiratory acidosis. Continue acetazolamide. 4.Congestive heart failure exacerbation. Continue diuresis to establish better volume control. 5.Urinary tract infection secondary to Escherichia coli extended-spectrum beta-lactamases. Continue meropenem. ANALI/GAYLA Voice ID: [id number] Report ID: [id number]
[2019-05-30] MEDS: ACETAMINOPHEN 500 MG TAB PO PRN ×5 (00:16→20:19)
[2019-05-30 04:47] LABS: Absolute Lymphocytes (CBC) 1.2 K/uL (0.7-4.9); Basophils % 0.9 % (0-1.3); Lymphocytes % 13.7 % (15.3-44.8); MPV 7.5 fL (7.6-11.3); RBC Red Blood Cell Count 3.25 M/uL (3.86-4.86)
[2019-05-30 05:20] LABS: Albumin 2.4 g/dL (3.4-5.0); Bilirubin Total 0.5 mg/dL (0.2-1.0); Phosphorus 2.9 mg/dL (2.5-4.9); Potassium 4.8 mmol/L (3.5-5.1); Protein, Total 6.1 g/dL (6.4-8.2)
[2019-05-30] MEDS: LEVOTHYROXINE SOD 0.1 MG TAB PO SCH (06:11)
[2019-05-30] MEDS: METOPROLOL TAR 25 MG TAB PO SCH ×2 (06:11→18:26)
[2019-05-30 06:48] LABS: Urine Appearance CLEAR; Urine Bilirubin NEGATIVE (NEG); Urine Blood 3+ (NEG); Urine Color YELLOW; Urine Glucose NEGATIVE (NEG); Urine Protein NEGATIVE (NEG); Urine Urobilinogen 0.2 mg/dL (0.2-1.0)
[2019-05-30 07:06] LABS: Urine Bacteria <20 /HPF (<20); Urine Culture Reflex Order NOT NEEDED; Urine RBC >50 /HPF (NONE SEEN)
[2019-05-30 07:29] LABS: Vitamin D 1,25-Dihydroxy Total 27 pg/mL (18-72); Vitamin D,1,25-OH2, D2 <8 pg/mL
[2019-05-30] MEDS: THIAMINE 200 MG/2 ML INJ IVP SCH (08:48)
[2019-05-30] MEDS: FUROSEMIDE 40 MG/4 ML VIAL IV SCH (08:48)
[2019-05-30] MEDS: acetaZOLAMIDE 250 MG TAB PO SCH (08:49)
[2019-05-30] MEDS: GABAPENTIN 300 MG CAP PO SCH ×2 (08:49→20:19)
[2019-05-30] MEDS: CLOPIDOGREL 75 MG TABLET PO SCH (08:49)
[2019-05-30] MEDS: CLOTRIMAZ/BETAMETH CREAM 15GM TOP SCH ×2 (08:49→20:19)
[2019-05-30] MEDS: Meropenem 1,000 MG in NA CHLORIDE 0.9% 100 ML IV SCH ×2 (08:50→20:20)
--- NOTE | 2019-05-30 12:16 | P.PN ---
Subjective Date of Service: 05/30/19 Chief Complaint: Respiratory failure Patient is doing well alert oriented responsive cooperative wants to get up have a shower diffusing BiPAP Review of Systems General: Weakness Respiratory: Shortness of Breath Physical Examination - Vital Signs Temperature: 97.9 F Blood Pressure: 103/53 Pulse: 71 Respirations: 18 Pulse Ox (%): 97 - Physical Exam General: Alert, Oriented x3 Respiratory: Clear to auscultation bilaterally Cardiovascular: No edema, Regular rate/rhythm, Normal S1 S2 - Studies Microbiology Data (last 24 hrs): 05/25/19 11:15 Blood - Blood Aerobic Blood Culture - Final No growth in 5 days. 05/25/19 11:15 Blood - Blood Anaerobic Blood Culture - Final No growth in 5 days. 05/25/19 11:00 Blood - Blood Aerobic Blood Culture - Final No growth in 5 days. 05/25/19 11:00 Blood - Blood Anaerobic Blood Culture - Final No growth in 5 days. Assessment & Plan - Problems (Diagnosis) (1) Respiratory failure Current Visit: Yes Status: Acute Plan: Patient admitted with chronic respiratory failure refusing BiPAP prescription of for a BiPAP was given to the relatives change to p.o. Lasix 40 mg and Diamox urine cultures pending if negative will Dc meropenem patient has a rash under the breast continue with topical anti fungal cream labs reviewed renal function is better evaluate for sniff placement physical therapy counseled continue with reduced doses of gabapentin Dc Requip Qualifiers: Chronicity: unspecified Respiratory failure complication: hypoxia and hypercapnia Qualified Code(s): J96.91 - Respiratory failure, unspecified with hypoxia; J96.92 - Respiratory failure, unspecified with hypercapnia
--- NOTE | 2019-05-30 13:14 | PN ---
Date of Progress Note: 05/29/2019 Patient feels somewhat better and looks somewhat better and clinically and lab schwarz is somewhat brianna r today. Discussion of disposition was also made with the family and probability of her requiring fu rther observation and treatment possibly in a SNF. Physical therapy will be instituted. We will dis cuss the case further with Pulmonology. Cardiologically seems to be stable. There was discussion wi th the family about purchasing the BiPAP as well. Continue to monitor and continue on IV antibiotics , seen by Infectious Disease, suggested another day or 2 of the IV antibiotic. Diuresis has been goo d on the Lasix. This too will vary by Pulmonology and Nephrology with the possibility of Diamox as w e cut back on the Lasix will also be considered. Patient's blood pressure is still low, but stabiliz ed to be weaned off the drip and probably could be transferred to floor care. HR/MODL Voice ID: [id number] Report ID: [id number]
--- NOTE | 2019-05-30 15:41 | PN ---
Date of Progress Note: 05/30/2019 Subjective: Patient was admitted with anasarca, acute kidney injury. Patient being on diuresis, res ponding very well. Swelling has been subsided significantly. Patient's altered mental status has be en improved. Physical Examination: Vital Signs: Blood pressure 109/55, pulse of 68. Patient had good urine output of 3800, negative of 2700. Chest: Decreased entry bilateral base. Heart: S1, S2. Regular. Abdomen: Soft, nontender. Extremities: Trace edema. Laboratory Data: WBC 8.5, H and H 9.8/31, platelets of 173. Sodium 143; potassium 4.8; bicarb 37; B UN 42; creatinine 1.1, back to baseline; GFR of 44; calcium 8.6; phosphorus 2.9. Serum protein elect rophoresis showing no monoclonal. P-C ratio 0.3. Current Medications: Meropenem, Xarelto, Plavix, metoprolol 12.5 b.i.d., gabapentin 300 b.i.d., Lasi x 40, levothyroxine, acetazolamide. Assessment And Plan: 1.Acute kidney injury secondary to cardiorenal, recovered, resolved, looked to me normal volume curr ently. I am going to continue current dose of Lasix. Patient can be switched to oral by tomorrow, a nd I think that is going to be the third day of the acetazolamide, so it can be discontinued tomorrow . 2.Hypercapnic respiratory failure, as by Pulmonary. 3.Hyperkalemia. Has been resolved. Continue diuresis. 4.Deconditioning. Continue PT/OT. 5.Altered mental status secondary to hypercapnic respiratory failure, as by primary. MA/MODL Voice ID: [id number] Report ID: [id number]
[2019-05-30] MEDS: RIVAROXABAN 15 MG TABLET PO SCH (16:22)
[2019-05-30 16:32] LABS: Hepatitis C Virus RNA (PCR)log <1.18 log IU/mL
[2019-05-30 21:41] VITALS: O2SAT 100
--- NOTE | 2019-05-30 21:47 | PN ---
Date of Progress Note: 05/30/2019 Patient continues to improve both symptomatically and clinically. A rehab consult was placed and she was accepted. She will be transferred in the morning. Some discussion as to her diuresis. At this time, I will leave her on the Lasix until the transfer, IV to p.o. at the time of transfer 40 b.i.d. , and the medication for her urinary tract infection. Impressed it has done its job as well as these are both much better. HR/MODL Voice ID: [id number] Report ID: [id number]
[2019-05-31] MEDS: ACETAMINOPHEN 500 MG TAB PO PRN ×3 (00:19→08:45)
[2019-05-31 05:21] LABS: Absolute Lymphocytes (CBC) 1.2 K/uL (0.7-4.9); Basophils % 0.6 % (0-1.3); Hematocrit 30.7 % (36.0-45.0); Lymphocytes % 12.4 % (15.3-44.8); MPV 7.6 fL (7.6-11.3); RBC Red Blood Cell Count 3.28 M/uL (3.86-4.86)
[2019-05-31 05:33] VITALS: BMI 41.3
[2019-05-31 05:41] LABS: Albumin 2.5 g/dL (3.4-5.0); Bilirubin Total 0.5 mg/dL (0.2-1.0); Phosphorus 2.5 mg/dL (2.5-4.9); Potassium 4.5 mmol/L (3.5-5.1); Protein, Total 6.5 g/dL (6.4-8.2)
[2019-05-31] MEDS: METOPROLOL TAR 25 MG TAB PO SCH (06:31)
[2019-05-31] MEDS: LEVOTHYROXINE SOD 0.1 MG TAB PO SCH (06:31)
[2019-05-31] MEDS: GABAPENTIN 300 MG CAP PO SCH (08:35)
[2019-05-31] MEDS: CLOPIDOGREL 75 MG TABLET PO SCH (08:35)
[2019-05-31] MEDS: acetaZOLAMIDE 250 MG TAB PO SCH (08:35)
[2019-05-31] MEDS: CLOTRIMAZ/BETAMETH CREAM 15GM TOP SCH (08:36)
[2019-05-31] MEDS: Meropenem 1,000 MG in NA CHLORIDE 0.9% 100 ML IV SCH (08:36)
[2019-05-31] MEDS ORDERED: FUROSEMIDE 40 MG TABLET PO SCH ×2 (09:00→17:00)
[2019-05-31 12:27] VITALS: BP 117/51; TEMP 97.5
--- NOTE | 2019-05-31 12:54 | P.PN ---
Subjective Date of Service: 05/31/19 Chief Complaint: Respiratory failure Subjective: Improving subjective Pt with CKD, CHF, COPD , Afib admitted for SOB HAd Ailyn due to cardiorenl syndrome, Cr improved on lasix Today No overnight events stable VS Cr down to baseline Lasix switched to PO PT/OT , discharge plan to Rehab Physical exam general: AAOX3, NAD , obese Neck; Supple, No elevated JVD hear: RRR, normal S1,2 no murmur or rub Chest: CTAB, no rales or wheezes Abdomen: Soft , Nt Extremities Edema +1 Physical Examination - Vital Signs Temperature: 97.5 F Blood Pressure: 117/51 Pulse: 70 Respirations: 18 Pulse Ox (%): 99 - Studies Microbiology Data (last 24 hrs): 05/25/19 11:15 Blood - Blood Aerobic Blood Culture - Final No growth in 5 days. 05/25/19 11:15 Blood - Blood Anaerobic Blood Culture - Final No growth in 5 days. 05/25/19 11:00 Blood - Blood Aerobic Blood Culture - Final No growth in 5 days. 05/25/19 11:00 Blood - Blood Anaerobic Blood Culture - Final No growth in 5 days. Assessment And Plan - Plan CKD III due to cardiorenal syndrome Cr down to baseline Cont lasix Anasarca imprving minimal proteinuria Cont lasix CHF cont lasix Afib on xarelto
--- NOTE | 2019-05-31 15:40 | PN ---
Subjective: Patient lying in bed, feeling better. Denies any headache, nausea, vomiting, chest pain , abdominal pain, constipation, or diarrhea. Objective: Vital Signs: Temperature 97, pulse 70, respirations 18, blood pressure 121/54. Lungs: Basal crackles. Heart: S1, S2. Regular. Abdomen: Soft, nontender. Bowel sounds present. EXTREMITIES: Trace edema. Laboratory Data: WBC 9.5, hemoglobin 9.8, platelets are 172. Chemistry shows sodium 143, potassium 4.5, chloride 104, bicarb 37, BUN 39, creatinine 1.14, glucose is 109. Micro data showing E coli ESB L in the urine. Blood cultures are negative. Repeat urine culture is negative. Assessment And Plan: Urinary tract infection secondary to Escherichia coli extended spectrum beta-la ctamase. Day 6 of antibiotic. Patient is doing better and going for rehab. We will follow the estee ent as needed. NF/MODL Voice ID: [id number] Report ID: [id number]
--- NOTE | 2019-05-31 17:14 | PN ---
Date of Progress Note: 05/31/2019 Patient seems at baseline. She is much more orientated, although not completely so. Her vital signs are stable. Her creatinine is the best, it has been. She was seen again by Infectious Disease. Di scussed further treatment if necessary. I feel she is stable enough to go to rehab and that she now has her own CPAP, BiPAP according to her and her family and she is encouraged to use this as a necess rosana basis. She will be transferred later on today. HR/MODL Voice ID: [id number] Report ID: [id number]
== END 2019-05-31 13:16 | DRG 291 ==
LOC: ER 10:24 → ERHOLD 13:27 → 4TH 14:11 → 3RD-ICU 05-28 01:15 → 4TH 05-29 11:25
PROVIDERS: ADMIT Family Medicine; ATTEND Family Medicine
PROC: 5A09457 Assistance with Respiratory Ventilation, 24-96 Consecutive Hours, Continuous Positive Airway Pressure (ICD-10-PCS; principal; 2019-05-27)
DX: I13.0 Hypertensive heart and chronic kidney disease with heart failure and stage 1 through stage 4 chronic kidney disease, or unspecified chronic kidney disease (principal); J96.01 Acute respiratory failure with hypoxia; I50.33 Acute on chronic diastolic (congestive) heart failure; G93.41 Metabolic encephalopathy; J96.02 Acute respiratory failure with hypercapnia; R57.8 Other shock; N39.0 Urinary tract infection, site not specified; Z16.12 Extended spectrum beta lactamase (ESBL) resistance; E87.2 Acidosis; N17.9 Acute kidney failure, unspecified; I48.20 Chronic atrial fibrillation, unspecified; J44.1 Chronic obstructive pulmonary disease with (acute) exacerbation; Z66 Do not resuscitate; B96.20 Unspecified Escherichia coli [E. coli] as the cause of diseases classified elsewhere; N18.3 Chronic kidney disease, stage 3 (moderate); N61.0 Mastitis without abscess; I25.10 Atherosclerotic heart disease of native coronary artery without angina pectoris; I27.20 Pulmonary hypertension, unspecified; E03.9 Hypothyroidism, unspecified; E87.5 Hyperkalemia; I25.2 Old myocardial infarction; Z95.0 Presence of cardiac pacemaker
CPT/HCPCS: 36415; 51702; 70450; 71045; 76770; 80048; 80053; 80069; 80076; 81001; 81003; 81015; 82140; 82550; 82553; 82570; 82607; 82652; 82728; 82746; 82805; 82947; 83540; 83605; 83690; 83735; 83880; 83970; 84132; 84145; 84156; 84165; 84439; 84443; 84466; 84484; 85025; 85044; 85379; 85610; 85730; 86317; 86704; 86706; 87040; 87077; 87086; 87088; 87186; 87340; 87522; 87804; 93005; 93306; 94660; 94760; 96361; 96365; 96375; 97116; 97161; 97530; 99285; J0456; J0696; J1265; J1940; J2930; J3411; J7030; J7040

== ENCOUNTER 2019-05-31 13:30 | Inpatient (IN) | payer OTHER ==
--- NOTE | 2019-05-31 11:33 | R.PREADM ---
SCREENING DATE AND TIME 05/31/2019 08:55 (USED EQUIPMENT SALES REPRESENTATIVE) ANTICIPATED REHAB ADMISSION DATE 06/02/2019 REFERRING FACILITY [facility] REFERRAL DATE AND TIME 05/31/2019 08:55 (USED EQUIPMENT SALES REPRESENTATIVE) REFERRAL OFFICE PHONE [phone] REFERRAL ROOM# 404 ACUTE ADMIT DATE 05/25/2019 Previous Rehabilitation(s): No. ACUTE HISTORICAL ARCHEOLOGIST/DC DOCUMENT CONTROL MANAGER Kay Hwang ATTENDING PHYSICIAN REFERRING PHYSICIAN DR [facility] CLINICAL LIAISON [facility] NOLASCO PHYSICIAN REVIEWER Dr. Rambo De La Rosa M.D. MR# [id number] NAME COCO MELTON ADDRESS [address] [place] [address] PHONE [facility] [id number] DATE OF 1935 AGE 84 SSN# [id number] GENDER female MARITAL STATUS RACE white ADMIT FROM 02 - [facility] PRE-HOSPITAL LIVING SETTING 01 - Home (private home/apt. board/care, assisted living, snf, transitional living) HOME TYPE AND DETAILS Type of home: Assisted living # of levels in the residence: 1 # of steps within the residence: 0 # of steps to enter the residence: 0 PRE-HOSPITAL LIVING WITH Attendant FAMILY SUPPORT Yes PRIMARY FAMILY CONTACT NAME AKUA HARRIS PRIMARY FAMILY CONTACT PHONE PRIMARY FAMILY CONTACT RELATIONSHIP Daughter PHONE PRIMARY FAMILY CONTACT ON ADM.? no IS PRIMARY FAMILY CONTACT AUTH. REP.? no 1ST EMERGENCY CONTACT AKUA HARRIS 1ST CONTACT PHONE 1ST CONTACT RELATIONSHIP Daughter PHONE 1ST CONTACT ON ADM. no IS 1ST CONTACT AUTH. REP.? no PHONE 2ND CONTACT ON ADM.? no PATIENT EMPLOYMENT STATUS Retired (for age) PATIENT EMPLOYER No Employer PAYOR INFORMATION: 1ST PAYOR NAME Medicare 1ST PAYOR PHONE 1ST PAYOR INJURY/ILLNESS DUE TO ACCIDENT? No ANOTHER REPUBLICAN RESPONSIBLE? No PRIMARY REHAB/ACUTE DIAGNOSIS: CHF exacerbation ONSET DATE 05/25/2019 REHAB IMPAIRMENT CATEGORY (RAFAEL): 14 Cardiac does NOT meet 60% rule PRIMARY DIAGNOSIS-RELATED SURGERIES: No surgeries related to the primary diagnosis were performed. COMORBID REHAB/ACUTE DIAGNOSES: - N/A Hypertension Atrial Fibrillation Anxiety Hypothyroidism Neuropathy IN INTERVENTIONS: - Hypertension Fluid management Medications VS - Atrial Fibrillation Anticoagulation Medications VS - Neuropathy Education Medications Safety RISK FOR COMPLICATIONS: - Hypertension CVA Hypotension IN TIA - Atrial Fibrillation CVA Heart failure Limb embolus - Neuropathy Falls Sensory Deficits Skin breakdown SUMMARY OF ACUTE HOSPITALIZATION: Pt. is a 84 yo Right-handed white female. On 05/25/2019 she was admitted to [facility] with diagnosis CHF exacerbation. Her impairment category is Cardiac 09 - Cardiac Disorders (09). Pre-morbidly, Pt. was independent/mod-I in Locomotion, Balance, Safety Awareness, Social Cognition, T ransfers Control, Sphincter Control, Self-Care, Communication, and Endurance; and she had good Locomo tion, Safety Awareness, Balance, Social Cognition, Transfers Control, Sphincter Control, Self-Care, C ommunication, and Endurance. Currently, she has deficits of Locomotion, Balance, Safety Awareness, Transfers Control, Sphincter Co ntrol, Self-Care, Communication, Endurance, and Social Cognition. Pt. is now referred to [facility] for acute in-patient rehabilitation in order to maximize patient's functional independence in activities of daily living, strength, ROM, and mobi lity. Patient has realistic goal of being discharged at assistance level 6-Radha to reside at Home with Att endant. Coco Melton is a 84 year old female with significant past medical history of hypertension, coronary artyery disease, status post PTCA and ICD, chronic kidney disease. She lives at [facility] with assistance. Its a single story apartment with no stairs to get into apartment . She came into the hospital feeling weak. Patient in the last few days starting over the weekend, started to be confused, more sleepy with shortness of breath and increased leg swelling. For that reason, patient was brought to hospital. Patient has been admitted at [facility] and tends to have started on diuresis. She is now medically stable but in need of 24 hour nursing, doctor supervision and oversight while reasonably expected to participate in 3 hours of therapy a day/15 hours per week and receive care with intensive interdisciplinary approach. PAST MEDICAL HISTORY Hypertension AFib Pulmonary hypertension Chronic kidney disease. Baseline creatinine 1.5, GFR of 31, as by 2018 heart disease PAST SURGICAL HISTORY: Cholecystectomy APPENDECTOMY Pacemaker Placement MEDICATION ALLERGIES: Morphine Opioids Opiodids Codeine ENVIRONMENTAL ALLERGIES: None Known - Substance Allergies None Known - Other Allergies None Known CODE STATUS: Full code WEIGHT/HEIGHT/BMI: WEIGHT 288 lbs HEIGHT 5' 9" BMI 42.5 DIET: - Diet Type Regular - Diet - Solid Texture Regular - Diet - Liquid Texture Regular - Tube Feed N/A REVIEW OF SYSTEMS: - Gen Alert and awake Lying in bed No apparent distress Oriented to: person, time, and place - Vital Signs Temperature: 96.8 F SBP/DBP: 97/43 Pulse: 66 Resp: 30 Vital signs stable, afebrile - CVS RRR VITAL SIGNS Temperature: 96.8 F SBP/DBP: 97/43 Pulse: 66 Resp: 30 Vital signs stable, afebrile MEDICATIONS/TREATMENT: Other- See attached MAR (Medication Administration Record). CURRENT SPHINCTER CONTROL: Pre-hospital bladder status: continent # of bladder accidents in the last 7 days prior to screenin Pre-hospital bowel status: continent # of bowel accidents in the last 7 days prior to screenin Last Bowel Movement Date: N/A CURRENT LOCOMOTION STATUS: distance walked 30 feet DETAILED CURRENT FUNCTIONAL STATUS: - Bladder accident frequency: Ind - No accidents in the past 7 days - Bowel accident frequency: Ind - No accidents in the past 7 days - Walking score based on distance walked: 0(N/A) - Wheelchair score based on distance traveled: 0(N/A) QI SCORES: - Self-Care A. Eating 06-Independent B. Oral hygiene 03-Partial/moderate assistance C. Toileting hygiene 03-Partial/moderate assistance E. Shower/bathe self 03-Partial/moderate assistance F. Upper body dressing 03-Partial/moderate assistance G. Lower body dressing 02-Substantial/maximal assistance H. Putting on/taking off footwear 03-Partial/moderate assistance - Mobility J. Walk 50 feet with two turns 88-Not attempted due to medical condition or safety concerns B. Sit to lying 03-Partial/moderate assistance C. Lying to sitting on side of bed 04-Supervision or touching assistance D. Sit to stand 03-Partial/moderate assistance E. Chair/ghf-fn-rmrqr transfer 03-Partial/moderate assistance F. Toilet transfer 03-Partial/moderate assistance G. Car transfer 88-Not attempted due to medical condition or safety concerns I. Walk 10 feet 03-Partial/moderate assistance K. Walk 150 feet 88-Not attempted due to medical condition or safety concerns L. Walking 10 feet on uneven surfaces 88-Not attempted due to medical condition or safety concerns M. 1 step (curb) 88-Not attempted due to medical condition or safety concerns N. 4 steps 03-Partial/moderate assistance O. 12 steps 03-Partial/moderate assistance P. Picking up object 06-Independent R. Wheel 50 feet with two turns 88-Not attempted due to medical condition or safety concerns S. Wheel 150 feet 88-Not attempted due to medical condition or safety concerns - Bladder and Bowel Bladder continence 0-Always continent Bowel continence - Endurance Poor - Balance Poor - Safety Awareness Fair CURRENT [facility]. DEFICITS: Endurance, Balance, Safety Awareness, Self-Care, and Mobility CURRENT / PREVIOUS ASSISTIVE DEVICES: 3-in-1 Commode [facility] Hospital Bed Oxygen Raised Toilet Rolling Walker Shower Chair Tub Bench Wheelchair HISTORY OF FALLS. HAS THE PATIENT HAD TWO OR MORE FALLS IN THE PAST YEAR OR ANY FALL WITH INJURY IN T HE PAST YEAR?: No PRIOR SURGERY. DID THE PATIENT HAVE MAJOR SURGERY DURING THE 100 DAYS PRIOR TO ADMISSION?: No THERAPY NOTES FROM ACUTE CARE: Attached. SPECIAL NEEDS: - Safety Concerns Skin breakdown precautions needed due to skin breakdown risk PATIENT NEEDS ACTIVE AND ONGOING THERAPEUTIC INTERVENTION OF MULTIPLE THERAPY DISCIPLINES, INCLUDING: - Dietary and Nutrition Adequate Nutrition. Nutritional Education. Nutritional Supplements. PATIENT NEEDS CLOSE MEDICAL SUPERVISION BY A REHABILITATION PHYSICIAN FOR: Coordination of Treatment Team Medical and Co-Morbidity Management PATIENT REQUIRES 24X7 REHAB NURSING FOR MEDICAL AND FUNCTIONAL MGT. OF THE FOLLOWING DEFICITS: Disease Management Medication Management Patient/Family Education Providing Safe Environment PATIENT REQUIRES INTENSIVE, COORDINATED INTERDISCIPLINARY APPROACH TO REHAB: Arranging Home Equipment/Services Discharge Planning Family Intervention/Training C2 Tactical Analysis Technician/Case Management PATIENT REHAB POTENTIAL: Juaquin MELTON is able and expected to receive 3 hours of individualized therapy daily on at least 5 of e very 7 days Juaquin MELTON's prognosis for significant practical improvement within a reasonable period of time appea rs Good Expected level of measurable improvement will be of a practical value to Juaquin MELTON's functional capa city or adaptations to impairments Has a viable Discharge Plan Medically appropriate; condition is sufficiently stable to participate in intensive rehab program DISCHARGE PLAN: - Estimated Length of Stay (days) 10. - Consensus on plan Discharge plan has been discussed with primary caregiver. Patient/Family is in agreement with the irasema n. Primary caregiver is in agreement with the plan. - Patient/Family Goals Return home with assistance. - Planned Living Setting Upon Discharge Home, to live with Attendant. Transitional Living. Primary caregiver: Attendant. RECOMMENDED CARE LEVEL: IRF RECOMMENDATION DETAILS: Recommended Admission to Comprehensive Rehabilitation Program to Increase Functional [place]ana Diaz SCREENER'S COMPLETENESS CONFIRMATION: - Screening Confirmation The patient data collection on this preadmission screening form is finished PHYSICIANS REVIEW AND ADMISSION DETERMINATION Admit - Based on my review of the Pre-Admission Screening results, in my medical judgment and experie nce, I concur with the findings and recommend admission to [facility], as this patient requires an IRF level of care. SIGNATURE PANEL: Clinical Liaison - [electronically] signed by Raymon Frazier on 05/31/2019 at 11:29 (USED EQUIPMENT SALES REPRESENTATIVE) Clinical Liaison - [electronically] signed by Trinity Nolasco on 05/31/2019 at 11:29 (USED EQUIPMENT SALES REPRESENTATIVE) Physician Reviewer - [electronically] signed by Dr. Rambo De La Rosa M.D. on 05/31/2019 at 11:32 (USED EQUIPMENT SALES REPRESENTATIVE )
[2019-05-31] MEDS ORDERED: ACETAMINOPHEN 500 MG TAB PO PRN (14:29)
[2019-05-31] MEDS: ACETAMINOPHEN 500 MG TAB PO PRN (15:10)
[2019-05-31] MEDS: FUROSEMIDE 40 MG TABLET PO SCH (17:20)
[2019-05-31] MEDS: METOPROLOL TAR 25 MG TAB PO SCH (17:20)
[2019-05-31] MEDS: RIVAROXABAN 15 MG TABLET PO SCH (17:20)
[2019-05-31] MEDS: GABAPENTIN 300 MG CAP PO SCH (19:16)
[2019-05-31] MEDS: CRANBERRY FRUIT EXTRACT 200 MG CAP PO SCH (19:17)
[2019-05-31] MEDS: CLOTRIMAZOLE 1% CREAM 15 GM TOP SCH (19:17)
[2019-05-31] MEDS: MELATONIN 5 MG TABLET PO SCH (20:20)
--- NOTE | 2019-06-01 02:13 | FAST ---
SHIFT START DATE/TIME: 05/31/2019 19:00 (PNEUMATIC TUBE REPAIRER) SHIFT END DATE/TIME: 06/01/2019 07:00 (PNEUMATIC TUBE REPAIRER) NAME LINH SANDS DATE OF : 1935 DATE OF ADMISSION: 05/31/2019 13:30 (PNEUMATIC TUBE REPAIRER) PHONE: AGE: 84 N# [id number] GENDER: Female ENCOUNTER PHYSICIAN: Dr. Rambo De La Rosa M.D. ADMISSION DIAGNOSIS: - Cardiac 09 - Cardiac Disorders () CHF exacerbation. EATING: Not assessed/no information CODE: - ORAL HYGIENE: Not assessed/no information CODE: - TOILETING HYGIENE: TOILETING HYGIENE - STEP 1: Does the patient complete the activity by him/herself with no assistance (physical, verbal/nonverbal cueing, setup/clean-up)? No. TOILETING HYGIENE - STEP 2: Does the patient need only setup/clean-up assistance from one helper? No. TOILETING HYGIENE - STEP 3: Does the patient need only verbal/nonverbal cueing or touching/steadying/contact guard assistance fro m one helper? No. TOILETING HYGIENE - STEP 4: Does the patient need physical assistance - for example lifting or trunk support from one helper - wi th the helper providing less than half of the effort? Yes. 1. [id number] ADMISSION PERFORMANCE: Partial/moderate assistance CODE: 03 BATHING: Not assessed/no information CODE: - DRESSING - UPPER BODY: Not assessed/no information CODE: - DRESSING - LOWER BODY: Not assessed/no information CODE: - PUTTING ON/TAKING OFF FOOTWEAR: Not assessed/no information CODE: - ROLL LEFT AND RIGHT: ROLL LEFT AND RIGHT - STEP 1: Does the patient complete the activity by him/herself with no assistance (physical, verbal/nonverbal cueing, setup/clean-up)? No. ROLL LEFT AND RIGHT - STEP 2: Does the patient need only setup/clean-up assistance from one helper? No. ROLL LEFT AND RIGHT - STEP 3: Does the patient need only verbal/nonverbal cueing or touching/steadying/contact guard assistance fro m one helper? No. ROLL LEFT AND RIGHT - STEP 4: Does the patient need physical assistance - for example lifting or trunk support from one helper - wi th the helper providing less than half of the effort? No. ROLL LEFT AND RIGHT - STEP 5: Does the patient need physical assistance - for example lifting or trunk support from one helper - wi th the helper providing more than half of the effort? No. ROLL LEFT AND RIGHT - STEP 6: Does the helper provide all of the effort? OR Is the assistance of two or more helpers required to co mplete the activity? Yes. 1. [id number] ADMISSION PERFORMANCE: Dependent CODE: 01 SIT TO LYING: SIT TO LYING - STEP 1: Does the patient complete the activity by him/herself with no assistance (physical, verbal/nonverbal cueing, setup/clean-up)? No. SIT TO LYING - STEP 2: Does the patient need only setup/clean-up assistance from one helper? No. SIT TO LYING - STEP 3: Does the patient need only verbal/nonverbal cueing or touching/steadying/contact guard assistance fro m one helper? No. SIT TO LYING - STEP 4: Does the patient need physical assistance - for example lifting or trunk support from one helper - wi th the helper providing less than half of the effort? Yes. 1. [id number] ADMISSION PERFORMANCE: Partial/moderate assistance CODE: 03 LYING TO SITTING: LYING TO SITTING ON SIDE OF BED - STEP 1: Does the patient complete the activity by him/herself with no assistance (physical, verbal/nonverbal cueing, setup/clean-up)? No. LYING TO SITTING ON SIDE OF BED - STEP 2: Does the patient need only setup/clean-up assistance from one helper? No. LYING TO SITTING ON SIDE OF BED - STEP 3: Does the patient need only verbal/nonverbal cueing or touching/steadying/contact guard assistance fro m one helper? No. LYING TO SITTING ON SIDE OF BED - STEP 4: Does the patient need physical assistance - for example lifting or trunk support from one helper - wi th the helper providing less than half of the effort? Yes. 1. [id number] ADMISSION PERFORMANCE: Partial/moderate assistance CODE: 03 SIT TO STAND: SIT TO STAND - STEP 1: Does the patient complete the activity by him/herself with no assistance (physical, verbal/nonverbal cueing, setup/clean-up)? No. SIT TO STAND - STEP 2: Does the patient need only setup/clean-up assistance from one helper? No. SIT TO STAND - STEP 3: Does the patient need only verbal/nonverbal cueing or touching/steadying/contact guard assistance fro m one helper? No. SIT TO STAND - STEP 4: Does the patient need physical assistance - for example lifting or trunk support from one helper - wi th the helper providing less than half of the effort? Yes. 1. [id number] ADMISSION PERFORMANCE: Partial/moderate assistance CODE: 03 TRANSFERS: BED, CHAIR: CHAIR/[id number] TRANSFER - STEP 1: Does the patient complete the activity by him/herself with no assistance (physical, verbal/nonverbal cueing, setup/clean-up)? No. CHAIR/[id number] TRANSFER - STEP 2: Does the patient need only setup/clean-up assistance from one helper? No. CHAIR/[id number] TRANSFER - STEP 3: Does the patient need only verbal/nonverbal cueing or touching/steadying/contact guard assistance fro m one helper? No. CHAIR/[id number] TRANSFER - STEP 4: Does the patient need physical assistance - for example lifting or trunk support from one helper - wi th the helper providing less than half of the effort? Yes. 1. [id number] ADMISSION PERFORMANCE: Partial/moderate assistance CODE: 03 TRANSFER TOILET: TOILET TRANSFER - STEP 1: Does the patient complete the activity by him/herself with no assistance (physical, verbal/nonverbal cueing, setup/clean-up)? No. TOILET TRANSFER - STEP 2: Does the patient need only setup/clean-up assistance from one helper? No. TOILET TRANSFER - STEP 3: Does the patient need only verbal/nonverbal cueing or touching/steadying/contact guard assistance fro m one helper? No. TOILET TRANSFER - STEP 4: Does the patient need physical assistance - for example lifting or trunk support from one helper - wi th the helper providing less than half of the effort? Yes. 1. [id number] ADMISSION PERFORMANCE: Partial/moderate assistance CODE: 03 TRANSFERS: CAR: Not assessed/no information CODE: - WALK 10 FEET: Not assessed/no information CODE: - 1 STEP (CURB): Not assessed/no information CODE: - PICKING UP OBJECT: Not assessed/no information CODE: - DOES THE PATIENT USE A WHEELCHAIR/SCOOTER? CODE: EXPR WHEEL 50 FEET WITH TWO TURNS: Not assessed/no information CODE: - INDICATE THE TYPE OF WHEELCHAIR/SCOOTER USED: CODE: EXPR WHEEL 150 FEET: Not assessed/no information CODE: - INDICATE THE TYPE OF WHEELCHAIR/SCOOTER USED: CODE: EXPR BLADDER AND BOWEL: H350. BLADDER CONTINENCE (3-DAY ASSESSMENT PERIOD): Incontinent less than daily (e.g., once or twice during the 3-day assessment period) CODE: 2 H400. BOWEL CONTINENCE (3-DAY ASSESSMENT PERIOD): Always continent CODE: 0
[2019-06-01] MEDS: ACETAMINOPHEN 500 MG TAB PO PRN ×4 (05:01→18:50)
[2019-06-01] MEDS: METOPROLOL TAR 25 MG TAB PO SCH ×2 (05:03→17:02)
[2019-06-01] MEDS: LEVOTHYROXINE SOD 0.05 MG TABLET PO SCH (06:26)
[2019-06-01 06:33] LABS: Basophils % 0.9 % (0-1.3); Hematocrit 29.7 % (36.0-45.0); Lymphocytes % 11.7 % (15.3-44.8); MPV 8.1 fL (7.6-11.3); RBC Red Blood Cell Count 3.14 M/uL (3.86-4.86)
[2019-06-01 06:55] LABS: Albumin 2.6 g/dL (3.4-5.0); Potassium 4.3 mmol/L (3.5-5.1); Prealbumin 14.5 mg/dL (20-40)
[2019-06-01] MEDS: CLOPIDOGREL 75 MG TABLET PO SCH (08:18)
[2019-06-01] MEDS: FUROSEMIDE 40 MG TABLET PO SCH ×2 (08:18→17:01)
[2019-06-01] MEDS: CRANBERRY FRUIT EXTRACT 200 MG CAP PO SCH ×2 (08:18→18:48)
[2019-06-01] MEDS: PRAMIPEXOLE 1 MG TAB PO SCH (08:19)
[2019-06-01] MEDS: GABAPENTIN 300 MG CAP PO SCH ×2 (08:19→18:49)
[2019-06-01] MEDS: CLOTRIMAZOLE 1% CREAM 15 GM TOP SCH ×2 (08:19→18:48)
--- NOTE | 2019-06-01 13:15 | R.HP ---
FACILITY: [facility] ENCOUNTER DATE AND TIME: 06/01/2019 13:10 (GOAT FARMER) MR#: [id number] NAME COCO MELTON ADDRESS: [address] [place] [address]: [place] [id number] PHONE: DATE OF : 1935 AGE: 84 SSN# [id number] GENDER: Female DEXTERITY Right-handed MARITAL STATUS RACE White PRE-HOSPITAL LIVING SETTING 01 - Home (private home/apt. board/care, assisted living, half-way, transitional living) PRE-HOSPITAL LIVING WITH Attendant ENCOUNTER PHYSICIAN: Dr. Rambo De La Rosa M.D. REFERRING DOCTOR: DR VACA DATE OF ADMISSION: 05/31/2019 13:30 (GOAT FARMER) REFERRING FACILITY [facility] HOME TYPE AND DETAILS: Type of home: Assisted living # of levels in the residence: 1 # of steps within the residence: 0 # of steps to enter the residence: 0 ADMISSION DIAGNOSIS: CHF exacerbation ONSET DATE: 05/25/2019 PRIMARY DIAGNOSIS-RELATED SURGERIES: No surgeries related to the primary diagnosis were performed. SECONDARY/COMORBID DIAGNOSES (TIERED): - N/A Hypertension Atrial Fibrillation Anxiety Hypothyroidism Neuropathy MA HISTORY OF PRESENT ILLNESS (HPI): Pt. is a 84 yo Right-handed white female. On 05/25/2019 [facility] CHF exacerbation. Her impairment category is Cardiac 09 - Cardiac Disorders (09). Pre-morbidly, Pt. was independent/mod-I in Locomotion, Balance, Safety Awareness, Social Cognition, T ransfers Control, Sphincter Control, Self-Care, Communication, and Endurance; and she had good Locomo tion, Safety Awareness, Balance, Social Cognition, Transfers Control, Sphincter Control, Self-Care, C ommunication, and Endurance. Currently, she has deficits of Locomotion, Balance, Safety Awareness, Transfers Control, Sphincter Co ntrol, Self-Care, Communication, Endurance, and Social Cognition. Pt. is now referred to [facility] for acute in-patient rehabilitation in order to maximize patient's functional independence in activities of daily living, strength, ROM, and mobi lity. Patient has realistic goal of being discharged at assistance level 6-Radha to reside at Home with Att endant. Coco Melton is a 84 year old female with significant past medical history of hypertension, coronary artyery disease, status post PTCA and ICD, chronic kidney disease. She lives at [facility] with assistance. Its a single story apartment with no stairs to get into apartment . She came into the hospital feeling weak. Patient in the last few days starting over the weekend, started to be confused, more sleepy with shortness of breath and increased leg swelling. For that reason, patient was brought to hospital. Patient has been admitted at [facility] and tends to have started on diuresis. She is now medically stable but in need of 24 hour nursing, doctor supervision and oversight while reasonably expected to participate in 3 hours of therapy a day/15 hours per week and receive care with intensive interdisciplinary approach. MEDICATION ALLERGIES: Morphine Opioids Opiodids Codeine ENVIRONMENTAL ALLERGIES: None Known - Substance Allergies None Known - Other Allergies None Known PAST MEDICAL HISTORY: Hypertension AFib Pulmonary hypertension Chronic kidney disease. Baseline creatinine 1.5, GFR of 31, as by 2018 heart disease PAST SURGICAL HISTORY: Cholecystectomy APPENDECTOMY Pacemaker Placement FAMILY HISTORY: Family history is not contributory. REVIEW OF SYSTEMS: - Gen No Chills Fatigue No Fever - Eyes No Double Vision No itchiness - ENMT No Difficulty Swallowing - CVS No Chest Discomfort No Chest Pain Fatigue No Weight Gain - Resp No Cough Shortness of Breath - GI Continent No Abdominal Pain No Constipation No Diarrhea - Continent No Kidney Pain No Painful Urination No Urinary Urgency - MSK No Joint Pain No Muscle Cramps Stiffness - Skin No Itching No Rash No Suspicious Lesions - Neuro Coordination Difficulty No Difficulty with Concentration No Memory Loss No Seizures Weakness - Psych No Anxiety No Depression No HIV Exposure No Persistent Infections No Seasonal Allergies - Endo No Cold/Heat Intolerance No Excessive Hunger No Excessive Thirst No Excessive Urination PHYSICAL EXAM - Gen Alert and awake Lying in bed No apparent distress Oriented to: person, time, and place - Skin No skin breakdown. Normacephalic - Eyes No abnormalities - ENMT No abnormalities - Neck No abnormalities - CVS RRR - Chest No abnormalities - Resp Clear to auscultation - Abd Soft - GI Non distended Deferred - No abnormalities - Ext Mild bilateral lower extremity edema. - MSK 4/5 weakness in both lower extremities. - Neuro No focal deficits - Psych No abnormalities VITAL SIGNS Temperature: 97.0 F SBP/DBP: 131/60 Pulse: 70 Resp: 30 NURSING: - Shower allowing shower ACTIVITIES OOB only with supervision QI SCORES: - Self-Care A. Eating 06-Independent B. Oral hygiene 03-Partial/moderate assistance C. Toileting hygiene 03-Partial/moderate assistance E. Shower/bathe self 03-Partial/moderate assistance F. Upper body dressing 03-Partial/moderate assistance G. Lower body dressing 02-Substantial/maximal assistance H. Putting on/taking off footwear 03-Partial/moderate assistance - Mobility J. Walk 50 feet with two turns 88-Not attempted due to medical condition or safety concerns B. Sit to lying 03-Partial/moderate assistance C. Lying to sitting on side of bed 04-Supervision or touching assistance D. Sit to stand 03-Partial/moderate assistance E. Chair/jvd-bi-nwjjc transfer 03-Partial/moderate assistance F. Toilet transfer 03-Partial/moderate assistance G. Car transfer 88-Not attempted due to medical condition or safety concerns I. Walk 10 feet 03-Partial/moderate assistance K. Walk 150 feet 88-Not attempted due to medical condition or safety concerns L. Walking 10 feet on uneven surfaces 88-Not attempted due to medical condition or safety concerns M. 1 step (curb) 88-Not attempted due to medical condition or safety concerns N. 4 steps 03-Partial/moderate assistance O. 12 steps 03-Partial/moderate assistance P. Picking up object 06-Independent R. Wheel 50 feet with two turns 88-Not attempted due to medical condition or safety concerns S. Wheel 150 feet 88-Not attempted due to medical condition or safety concerns - Bladder and Bowel Bladder continence 0-Always continent Bowel continence - Endurance Poor - Balance Poor - Safety Awareness Fair CURRENT FUNC. DEFICITS: Endurance, Balance, Safety Awareness, Self-Care, and Mobility MEDICATIONS: - Other See attached MAR (Medication Administration Record) ASSESSMENT: Pt. is a 84 yo Right-handed white female.On 05/25/2019 she was admitted to [facility] th diagnosis CHF exacerbation.Her impairment category is Cardiac 09 - Cardiac Disorders (09).Pre-mor bidly, Pt. was independent/mod-I in Locomotion, Balance, Safety Awareness, Social Cognition, Transfer s Control, Sphincter Control, Self-Care, Communication, and Endurance; and she had good Locomotion, S afety Awareness, Balance, Social Cognition, Transfers Control, Sphincter Control, Self-Care, Communic ation, and Endurance.Currently, she has deficits of Locomotion, Balance, Safety Awareness, Transfers Control, Sphincter Control, Self-Care, Communication, Endurance, and Social Cognition.Pt. is now refe rred to [facility] for acute in-patient rehabilitation in order to maximize pa osman's functional independence in activities of daily living, strength, ROM, and mobility.- Rehab Go al Patient has realistic goal of being discharged at assistance level 6-Radha to reside at Home with Att endant. Coco Melton is a 84 year old female with significant past medical history of hypertension, coronary artyery disease, status post PTCA and ICD, chronic kidney disease. She lives at [facility] with assistance. Its a single story apartment with no stairs to get into apartment . She came into the hospital feeling weak. Patient in the last few days starting over the weekend, started to be confused, more sleepy with shortness of breath and increased leg swelling. For that reason, patient was brought to hospital. Patient has been admitted at [facility] and tends to have started on diuresis. She is now medically stable but in need of 24 hour nursing, doctor supervision and oversight while reasonably expected to participate in 3 hours of therapy a day/15 hours per week and receive care with intensive interdisciplinary approach.REHAB PLAN: - Physical Therapy Gait dysfunction - to improve, our physical therapists will perform initial evaluation of pt's status upon admission and devise an individualized program for Gait Training, and Wheel Chair mobility Inability to transfer - to improve, our physical therapists will perform initial evaluation of pt's s tatus upon admission and devise an individualized program for Bed mobility Need for home safety evaluation - to improve, our physical therapists will perform initial evaluation of pt's status upon admission and devise an individualized program for Home Evaluation Need in caregiver upon discharge - to improve, our physical therapists will perform initial evaluatio n of pt's status upon admission and devise an individualized program for Caregiver Training New precaution - to improve, our physical therapists will perform initial evaluation of pt's status u johanna admission and devise an individualized program for Patient precaution education Edema - to improve, our physical therapists will perform initial evaluation of pt's status upon admi ssion and devise an individualized program for Elevation Training, and Lymphedema Therapy Poor balance - to improve, our physical therapists will perform initial evaluation of pt's status upo n admission and devise an individualized program for Balance Training Poor endurance - to improve, our physical therapists will perform initial evaluation of pt's status u johanna admission and devise an individualized program for Endurance Training Weakness - to improve, our physical therapists will perform initial evaluation of pt's status upon ad mission and devise an individualized program for Aquatic Therapy, Neuromuscular Reeducation, and Stre ngthening Achieving independence - to improve, our physical therapists will perform initial evaluation of pt's status upon admission and devise an individualized program for Community Reintegration Activities - Occupational Therapy ADL deficits - to improve, our occupation therapists will perform initial evaluation of pt's status u johanna admission and devise an individualized program for Bathing, Bed mobility, Community Reintegration , Cooking, Dressing, Eating, Fine Motor Skills, Grooming, Homemaking, Kitchen Mobility, Laundry, Enma ent Education, Safety Awareness, Splinting - Positioning, Transfers(Toilet, Tub, Shower), and Wheel C hair Management Cognitive deficits - to improve, our occupation therapists will perform initial evaluation of pt's st atus upon admission and devise an individualized program for Cognition - orientation Need for urgent care technician - to improve, our occupation therapists will perform initial evaluation of pt's s tatus upon admission and devise an individualized program for Caregiver Training Weakness - to improve, our occupation therapists will perform initial evaluation of pt's status upon admission and devise an individualized program for Aquatic Therapy, Balance, Endurance, UE ROM, and U E strengthening MEDICAL PLAN: - Diet Type Start Regular - Diet - Liquid Texture Start Regular - Tube Feed Start N/A - Other See attached MAR (Medication Administration Record) - Diet - Solid Texture Regular - Shower shower DISCHARGE PLAN: - Estimated Length of Stay (days) 10. - Consensus on plan Discharge plan has been discussed with primary caregiver. Patient/Family is in agreement with the irasema n. Primary caregiver is in agreement with the plan. - Patient/Family Goals Return home with assistance. - Planned Living Setting Upon Discharge Home, to live with Attendant. Transitional Living. Primary caregiver: Attendant. SIGNATURE PANEL: (GOAT FARMER)
--- NOTE | 2019-06-01 13:16 | PAPE ---
PATIENT: [facility] MR# [id number] REFERRING DOCTOR DR VACA EVALUATION DATE AND TIME 06/01/2019 13:14 (HOME APPRAISER) NAME LINH SANDS DATE OF 1935 AGE 84 PHONE N# [id number] GENDER female EVALUATING PHYSICIAN Dr. Rambo De La Rosa M.D. ADMISSION DIAGNOSIS: CHF exacerbation ONSET DATE 05/25/2019 SECONDARY/COMORBID DIAGNOSES TIERED: - N/A Hypertension Atrial Fibrillation Anxiety Hypothyroidism Neuropathy [place] POST-ADMISSION FUNCTIONAL/MEDICAL STATUS: - Bladder Same accident frequency: Ind - No accidents in the past 7 days - Bowel Same accident frequency: Ind - No accidents in the past 7 days - Walking Same score based on distance walked: 0(N/A) - Wheelchair Same score based on distance traveled: 0(N/A) STATUS CHANGE EVALUATION: No change in Functional or Medical Status is identified compared with Pre-Admission screening. PATIENT NEEDS CLOSE MEDICAL SUPERVISION BY A REHABILITATION PHYSICIAN FOR: Coordination of Treatment Team Medical and Co-Morbidity Management PATIENT REQUIRES 24X7 REHAB NURSING FOR MEDICAL AND FUNCTIONAL MGT. OF THE FOLLOWING DEFICITS: Disease Management Medication Management Patient/Family Education Providing Safe Environment PATIENT REQUIRES INTENSIVE, COORDINATED INTERDISCIPLINARY APPROACH TO REHAB: Arranging Home Equipment/Services Discharge Planning Family Intervention/Training Fermenting Cellars Receiver/Case Management LIST OF IDENTIFIED AND POTENTIAL PROBLEMS: Alteration in leisure activities Bladder, Incontinence Blood Pressure, Hypertension/hypotension Issues Bowel, Incontinence Infection, Actual or Potential Mobility Impaired Pain, Alteration in Comfort Self Care Deficit Skin Integrity, Actual or Potential Urinary Tract Infection (UTI), Actual or Potential RISK FOR COMPLICATIONS - Hypertension CVA. Hypotension. TX. TIA. - Atrial Fibrillation CVA. Heart failure. Limb embolus. - Neuropathy Falls. Sensory Deficits. Skin breakdown. INTERVENTIONS - Hypertension - Atrial Fibrillation Anticoagulation. Medications. VS. - Neuropathy Education. Medications. Safety. PATIENT COULD BE AT RISK FOR COMPLICATIONS FROM ADVERSE MEDICAL CONDITIONS DUE TO HIS/HER COMORBIDITI ES AND THE RIGORS OF THE INTENSIVE REHABILLITATION PROGRAM. METHODS OR INTERVENTIONS TO AVOID COMPLIC ATIONS INCLUDE: - Infection Clinical staff to assess and manage the signs and symptoms of infection including fever, redness, war mth, etc. - Urinary Tract Infection - Falls Patient will be evaluated for Fall Precautions and will be placed on Fall Precautions as indicated pe r protocol. - Skin Breakdown Nursing will assess skin daily using assessment tool and will place on Skin Breakdown Precautions as indicated per protocol. - Pain Clinical staff may employ non-medication methods such as massage, distraction, decrease stimulus, etc . as needed. Clinical staff will assess patient's pain level every shift per protocol to assess and e nsure pain management effectiveness. Medications will be given and the pain level re-assessed. PRELIMINARY PLAN OF CARE: - Physical Therapy Patient needs Physical Therapy for a daily minimum of 1.5 hours at least 5 out of 7 days, to improve: Mobility, Strengthening, Transfers, Stretching, ROM, Endurance, Ability to manage stairs, Gait, and Balance. - Speech Therapy Patient needs Speech Therapy for a daily minimum of 0.5 hours at least 5 out of 7 days, to improve: S wallowing, Cognition, Language Skills, and Compensatory Strategies. - Rehabilitation Nursing Patient requires 24x7 Rehabilitation Nursing for: Pain Issues, Identifying and preventing risk factor s, Monitoring and reporting current medical conditions, Assisting with ambulation and transfer, Naomy ting with all ADL-s, Teaching patients about disease process and medications, Family teaching, Provid ing safe environment, Bowel and Bladder Issues, Skin Integrity, and Medication Management. Patient needs Fermenting Cellars Receiver and/or Case Management for: Discharge Planning, Arranging Home Equipmen t or Services, and Family Interventions. - Dietary and Nutrition Services Patient needs Dietary and Nutrition Services for: Adequate Nutrition, Nutritional Supplements, and Nu tritional Education. - Occupational Therapy Patient needs Occupational Therapy for a daily minimum of 1.5 hours at least 5 out of 7 days, to impr ove Activities of Daily Living, including: Eating, Grooming, Bathing, Dressing, Toileting, Toilet Tra nsfers, Community Reintegration, Higher functional activities, Adaptive Equipment, Splinting, Househo ld Tasks, and Other activities as determined. QI SCORES: - Self-Care A. Eating 06-Independent B. Oral hygiene 03-Partial/moderate assistance C. Toileting hygiene 03-Partial/moderate assistance E. Shower/bathe self 03-Partial/moderate assistance F. Upper body dressing 03-Partial/moderate assistance G. Lower body dressing 02-Substantial/maximal assistance H. Putting on/taking off footwear 03-Partial/moderate assistance - Mobility J. Walk 50 feet with two turns 88-Not attempted due to medical condition or safety concerns B. Sit to lying 03-Partial/moderate assistance C. Lying to sitting on side of bed 04-Supervision or touching assistance D. Sit to stand 03-Partial/moderate assistance E. Chair/dxd-ns-kxyuo transfer 03-Partial/moderate assistance F. Toilet transfer 03-Partial/moderate assistance G. Car transfer 88-Not attempted due to medical condition or safety concerns I. Walk 10 feet 03-Partial/moderate assistance K. Walk 150 feet 88-Not attempted due to medical condition or safety concerns L. Walking 10 feet on uneven surfaces 88-Not attempted due to medical condition or safety concerns M. 1 step (curb) 88-Not attempted due to medical condition or safety concerns N. 4 steps 03-Partial/moderate assistance O. 12 steps 03-Partial/moderate assistance P. Picking up object 06-Independent R. Wheel 50 feet with two turns 88-Not attempted due to medical condition or safety concerns S. Wheel 150 feet 88-Not attempted due to medical condition or safety concerns - Bladder and Bowel Bladder continence 0-Always continent Bowel continence - Endurance Poor - Balance Poor - Safety Awareness Fair POTENTIAL FUNCTIONAL GOALS FOR PATIENT TO ACHIEVE BY DISCHARGE: - Safety Precaution Patient will remain free from falls or injury at time of discharge. - Bed Mobility Patient will perform bed mobility at 4-Maria Isabel level of assistance. - Transfers Patient will complete transfers from bed to chair at 4-Maria Isabel level of assistance. - Mobility Patient will ambulate 150 ft with 4-Maria Isabel level of assistance with RW. PATIENT REHAB POTENTIAL Juaquin SANDS is able and expected to receive 3 hours of individualized therapy daily on at least 5 of e very 7 days Juaquin SANDS's prognosis for significant practical improvement within a reasonable period of time appea rs Good Expected level of measurable improvement will be of a practical value to Juaquin SANDS's functional capa city or adaptations to impairments Has a viable Discharge Plan Medically appropriate; condition is sufficiently stable to participate in intensive rehab program DISCHARGE PLAN: - Estimated Length of Stay (days) 10. - Consensus on plan Discharge plan has been discussed with primary caregiver. Patient/Family is in agreement with the irasema n. Primary caregiver is in agreement with the plan. - Patient/Family Goals Return home with assistance. - Planned Living Setting Upon Discharge Home, to live with Attendant. Transitional Living. Primary caregiver: Attendant. CONCLUSION ON REHABILITATION NECESSITY: I have evaluated patient's pre-admission functional status and, comparing it to the patient's post-ad mission functional status now, I conclude that the pre-admission assessment was accurate. Patient's c ondition on admission supports the medical necessity of admission to [facility]. It is safe to proceed with patient's therapy program. SIGNATURE PANEL: (HOME APPRAISER)
--- NOTE | 2019-06-01 16:43 | FAST ---
ENCOUNTER DATE AND TIME: 06/01/2019 08:00 (DETECTIVE AUTOMOBILE SECTION) NAME LINH SANDS DATE OF : 1935 DATE OF ADMISSION: 05/31/2019 13:30 (DETECTIVE AUTOMOBILE SECTION) PHONE: AGE: 84 N# [id number] GENDER: Female ENCOUNTER PHYSICIAN: Dr. Rambo De La Rosa M.D. ADMISSION DIAGNOSIS: - Cardiac 09 - Cardiac Disorders () CHF exacerbation. EATING: Not assessed/no information CODE: - ORAL HYGIENE: Not assessed/no information CODE: - TOILETING HYGIENE: Not assessed/no information CODE: - BATHING: SHOWER/BATHE SELF - STEP 1: Does the patient complete the activity by him/herself with no assistance (physical, verbal/nonverbal cueing, setup/clean-up)? No. SHOWER/BATHE SELF - STEP 2: Does the patient need only setup/clean-up assistance from one helper? No. SHOWER/BATHE SELF - STEP 3: Does the patient need only verbal/nonverbal cueing or touching/steadying/contact guard assistance fro m one helper? No. SHOWER/BATHE SELF - STEP 4: Does the patient need physical assistance - for example lifting or trunk support from one helper - wi th the helper providing less than half of the effort? No. SHOWER/BATHE SELF - STEP 5: Does the patient need physical assistance - for example lifting or trunk support from one helper - wi th the helper providing more than half of the effort? Yes. 1. [id number] ADMISSION PERFORMANCE: Substantial/maximal assistance CODE: 02 DRESSING - UPPER BODY: DRESSING - UPPER BODY - STEP 1: Does the patient complete the activity by him/herself with no assistance (physical, verbal/nonverbal cueing, setup/clean-up)? No. DRESSING - UPPER BODY - STEP 2: Does the patient need only setup/clean-up assistance from one helper? No. DRESSING - UPPER BODY - STEP 3: Does the patient need only verbal/nonverbal cueing or touching/steadying/contact guard assistance fro m one helper? No. DRESSING - UPPER BODY - STEP 4: Does the patient need physical assistance - for example lifting or trunk support from one helper - wi th the helper providing less than half of the effort? No. DRESSING - UPPER BODY - STEP 5: Does the patient need physical assistance - for example lifting or trunk support from one helper - wi th the helper providing more than half of the effort? Yes. 1. [id number] ADMISSION PERFORMANCE: Substantial/maximal assistance CODE: 02 DRESSING - LOWER BODY: DRESSING - LOWER BODY - STEP 1: Does the patient complete the activity by him/herself with no assistance (physical, verbal/nonverbal cueing, setup/clean-up)? No. DRESSING - LOWER BODY - STEP 2: Does the patient need only setup/clean-up assistance from one helper? No. DRESSING - LOWER BODY - STEP 3: Does the patient need only verbal/nonverbal cueing or touching/steadying/contact guard assistance fro m one helper? No. DRESSING - LOWER BODY - STEP 4: Does the patient need physical assistance - for example lifting or trunk support from one helper - wi th the helper providing less than half of the effort? No. DRESSING - LOWER BODY - STEP 5: Does the patient need physical assistance - for example lifting or trunk support from one helper - wi th the helper providing more than half of the effort? No. DRESSING - LOWER BODY - STEP 6: Does the helper provide all of the effort? OR Is the assistance of two or more helpers required to co mplete the activity? Yes. 1. [id number] ADMISSION PERFORMANCE: Dependent CODE: 01 PUTTING ON/TAKING OFF FOOTWEAR: FOOTWEAR - STEP 1: Does the patient complete the activity by him/herself with no assistance (physical, verbal/nonverbal cueing, setup/clean-up)? No. FOOTWEAR - STEP 2: Does the patient need only setup/clean-up assistance from one helper? No. FOOTWEAR - STEP 3: Does the patient need only verbal/nonverbal cueing or touching/steadying/contact guard assistance fro m one helper? No. FOOTWEAR - STEP 4: Does the patient need physical assistance - for example lifting or trunk support from one helper - wi th the helper providing less than half of the effort? No. FOOTWEAR - STEP 5: Does the patient need physical assistance - for example lifting or trunk support from one helper - wi th the helper providing more than half of the effort? No. FOOTWEAR - STEP 6: Does the helper provide all of the effort? OR Is the assistance of two or more helpers required to co mplete the activity? Yes. 1. [id number] ADMISSION PERFORMANCE: Dependent CODE: 01 DOES THE PATIENT USE A WHEELCHAIR/SCOOTER? CODE: EXPR INDICATE THE TYPE OF WHEELCHAIR/SCOOTER USED: CODE: EXPR INDICATE THE TYPE OF WHEELCHAIR/SCOOTER USED: CODE: EXPR BLADDER AND BOWEL: CODE: EXPR CODE: EXPR SIGNATURE PANEL: The following modified sections: 1. [id number] Admission Performance, 1. [id number] Admission Performance, 1. [id number] Admission Performance, 1. [id number] Admission Performance were [electronically] signed by Dung Gates OT on Sat Jun 01 2019 16:42:40 GMT-0600 (Central Standard Time)
[2019-06-01] MEDS: RIVAROXABAN 15 MG TABLET PO SCH (17:02)
[2019-06-01] MEDS: MELATONIN 5 MG TABLET PO SCH (18:48)
[2019-06-02] MEDS: ACETAMINOPHEN 500 MG TAB PO PRN ×4 (00:55→16:52)
[2019-06-02] MEDS: METOPROLOL TAR 25 MG TAB PO SCH ×2 (05:07→16:54)
[2019-06-02] MEDS: LEVOTHYROXINE SOD 0.05 MG TABLET PO SCH (06:22)
[2019-06-02] MEDS: CRANBERRY FRUIT EXTRACT 200 MG CAP PO SCH ×2 (08:03→18:46)
[2019-06-02] MEDS: PRAMIPEXOLE 1 MG TAB PO SCH (08:04)
[2019-06-02] MEDS: GABAPENTIN 300 MG CAP PO SCH ×2 (08:05→18:47)
[2019-06-02] MEDS: FUROSEMIDE 40 MG TABLET PO SCH ×2 (08:05→16:54)
[2019-06-02] MEDS: CLOTRIMAZOLE 1% CREAM 15 GM TOP SCH ×2 (08:06→18:46)
[2019-06-02] MEDS: CLOPIDOGREL 75 MG TABLET PO SCH (08:06)
[2019-06-02] MEDS ORDERED: DOCUSATE NA/SENNA CONC 1 TAB PO PRN (10:14)
[2019-06-02] MEDS ORDERED: MAGNES/ALUMIN/SIMET 30ML UCUP PO PRN (11:30)
[2019-06-02] MEDS: PANTOPRAZOLE 40MG TABLET PO SCH (11:46)
[2019-06-02] MEDS: RIVAROXABAN 15 MG TABLET PO SCH (16:54)
--- NOTE | 2019-06-02 17:13 | P.PN ---
Subjective Date of Service: 06/02/19 Chief Complaint: Non compliance wiht BIPAP Subjective: Improving (Not tolerating BIPAP. HAs a nasal pillows.) Review of Systems General: Weakness Respiratory: Shortness of Breath Physical Examination - Vital Signs Temperature: 97.2 F Blood Pressure: 130/58 Pulse: 70 Respirations: 16 Pulse Ox (%): 97 - Physical Exam General: Alert, In no apparent distress Neck: Supple Respiratory: Clear to auscultation bilaterally Cardiovascular: Edema (2 plus edema) Assessment & Plan - Problems (Diagnosis) (1) Respiratory failure Current Visit: No Status: Acute Plan: C resp failure. Change to fullface mask for BIPAP. Add Diamox. Reduce lasix. LAbs reviewed Renal function normal Qualifiers: Chronicity: chronic
[2019-06-02] MEDS: MELATONIN 5 MG TABLET PO SCH (18:47)
[2019-06-03] MEDS: ACETAMINOPHEN 500 MG TAB PO PRN ×3 (05:18→17:08)
[2019-06-03] MEDS: METOPROLOL TAR 25 MG TAB PO SCH ×2 (05:18→17:01)
[2019-06-03] MEDS: PANTOPRAZOLE 40MG TABLET PO SCH (07:22)
[2019-06-03] MEDS: LEVOTHYROXINE SOD 0.05 MG TABLET PO SCH (07:22)
[2019-06-03] MEDS: CLOTRIMAZOLE 1% CREAM 15 GM TOP SCH ×2 (08:17→19:32)
[2019-06-03] MEDS: CRANBERRY FRUIT EXTRACT 200 MG CAP PO SCH ×2 (08:17→19:30)
[2019-06-03] MEDS: GABAPENTIN 300 MG CAP PO SCH ×2 (08:17→19:30)
[2019-06-03] MEDS: acetaZOLAMIDE 250 MG TAB PO SCH (08:18)
[2019-06-03] MEDS: FUROSEMIDE 40 MG TABLET PO SCH (08:18)
[2019-06-03] MEDS: CLOPIDOGREL 75 MG TABLET PO SCH (08:18)
[2019-06-03] MEDS: PRAMIPEXOLE 1 MG TAB PO SCH (08:19)
[2019-06-03] MEDS: NYSTATIN 500,000 UNIT/5 ML UDC PO SCH ×3 (09:00→20:18)
[2019-06-03] MEDS: RIVAROXABAN 15 MG TABLET PO SCH (17:05)
--- NOTE | 2019-06-03 17:33 | R.PN ---
ENCOUNTER DATE AND TIME: 06/03/2019 17:22 (LIME KILN OPERATOR) NAME LINH SANDS DATE OF : 1935 DATE OF ADMISSION: 05/31/2019 13:30 (LIME KILN OPERATOR) CHF exacerbationCHIEF COMPLAINT: CHF exacerbation and debility SUBJECTIVE: Pt denied any Shortness of Breath. Pt denied any depression. Ambulated 140' with contact guard assistance using a rolling walker. Blood work reviewed and Hgb is mildly low at 9.4. She is on hemocyte plus. Prealbumin is low at 14.5. Will start Promod. VITAL SIGNS Temperature: 97.0 F SBP/DBP: 131/60 Pulse: 70 Resp: 30 MEDICATION ALLERGIES: Morphine Opioids Opiodids Codeine ENVIRONMENTAL ALLERGIES: None Known - Substance Allergies None Known - Other Allergies None Known NURSING: - Shower allowing shower ACTIVITIES OOB only with supervision THERAPIES: - Dietary and Nutrition Adequate Nutrition. Nutritional Education. Nutritional Supplements. PHYSICAL EXAM - Gen Alert and awake Lying in bed No apparent distress Oriented to: person, time, and place - Skin No skin breakdown. Normacephalic - Eyes No abnormalities - ENMT No abnormalities - Neck No abnormalities - CVS RRR - Chest No abnormalities - Resp Clear to auscultation - Abd Soft - GI Non distended Deferred - No abnormalities - Ext Mild bilateral lower extremity edema. - MSK 4/5 weakness in both lower extremities. - Neuro No focal deficits - Psych No abnormalities ASSESSMENT: Pt. is a 84 yo Right-handed white female.On 05/25/2019 she was admitted to [facility] wi th diagnosis CHF exacerbation.Her impairment category is Cardiac 09 - Cardiac Disorders (09).Pre-mor bidly, Pt. was independent/mod-I in Locomotion, Balance, Safety Awareness, Social Cognition, Transfer s Control, Sphincter Control, Self-Care, Communication, and Endurance; and she had good Locomotion, S afety Awareness, Balance, Social Cognition, Transfers Control, Sphincter Control, Self-Care, Communic ation, and Endurance.Currently, she has deficits of Locomotion, Balance, Safety Awareness, Transfers Control, Sphincter Control, Self-Care, Communication, Endurance, and Social Cognition.Pt. is now refe rred to [facility] for acute in-patient rehabilitation in order to maximize pa elidant's functional independence in activities of daily living, strength, ROM, and mobility.- Rehab Go al Patient has realistic goal of being discharged at assistance level 6-Radha to reside at Home with Att endant. MDM/PLAN: - Physical Therapy Gait dysfunction - to improve, our physical therapists will perform initial evaluation of pt's statu s upon admission and devise an individualized program for Gait Training, and Wheel Chair mobility Inability to transfer - to improve, our physical therapists will perform initial evaluation of pt's status upon admission and devise an individualized program for Bed mobility Need for home safety evaluation - to improve, our physical therapists will perform initial evaluatio n of pt's status upon admission and devise an individualized program for Home Evaluation Need in caregiver upon discharge - to improve, our physical therapists will perform initial evaluati on of pt's status upon admission and devise an individualized program for Caregiver Training New precaution - to improve, our physical therapists will perform initial evaluation of pt's status upon admission and devise an individualized program for Patient precaution education Edema - to improve, our physical therapists will perform initial evaluation of pt's status upon admis ermelinda and devise an individualized program for Elevation Training, and Lymphedema Therapy Poor balance - to improve, our physical therapists will perform initial evaluation of pt's status up on admission and devise an individualized program for Balance Training Poor endurance - to improve, our physical therapists will perform initial evaluation of pt's status upon admission and devise an individualized program for Endurance Training Weakness - to improve, our physical therapists will perform initial evaluation of pt's status upon a dmission and devise an individualized program for Aquatic Therapy, Neuromuscular Reeducation, and Str engthening Achieving independence - to improve, our physical therapists will perform initial evaluation of pt's status upon admission and devise an individualized program for Community Reintegration Activities - Occupational Therapy ADL deficits - to improve, our occupation therapists will perform initial evaluation of pt's status upon admission and devise an individualized program for Bathing, Bed mobility, Community Reintegratio n, Cooking, Dressing, Eating, Fine Motor Skills, Grooming, Homemaking, Kitchen Mobility, Laundry, Pat ient Education, Safety Awareness, Splinting - Positioning, Transfers(Toilet, Tub, Shower), and Wheel Chair Management Cognitive deficits - to improve, our occupation therapists will perform initial evaluation of pt's s tatus upon admission and devise an individualized program for Cognition - orientation Need for care process manager - to improve, our occupation therapists will perform initial evaluation of pt's status upon admission and devise an individualized program for Caregiver Training Weakness - to improve, our occupation therapists will perform initial evaluation of pt's status upon admission and devise an individualized program for Aquatic Therapy, Balance, Endurance, UE ROM, and UE strengthening - Other See attached MAR (Medication Administration Record) - Diet Type Continue Regular - Diet - Liquid Texture Continue Regular - Tube Feed Continue N/A - Diet - Solid Texture Continue Regular - Shower allowing shower FUNCTIONAL STATUS: UPDATED AT WEEKLY TEAM CONFERENCE - Bladder Same accident frequency: 7-Ind - No accidents in the past 7 days - Bowel Same accident frequency: 7-Ind - No accidents in the past 7 days - Walking Same score based on distance walked: 0(N/A) - Wheelchair Same score based on distance traveled: 0(N/A) FUNCTIONAL STATUS: - Self-Care A. Eating Radha B. Grooming Ind C. Bathing sup D. Dressing - Upper sup E. Dressing - Lower maxA F. Toileting Maria Isabel - Sphincter Control G. Bladder control Radha H. Bowel control Radha - Transfers Control I. Bed/Chair/Wheelchair modA J. Toilet modA K. Tub/Shower maxA - Locomotion L. Walk/Wheelchair (B) Maria Isabel M. Stairs ADNO - Communication N. Comprehension (B) sup O. Expression (B) sup - Social Cognition P. Social Interaction Radha Q. Problem Solving Maria Isabel R. Memory Maria Isabel - Endurance Poor - Balance Fair - Safety Awareness Good QI SCORES: - Self-Care A. Eating 06-Independent B. Oral hygiene 03-Partial/moderate assistance C. Toileting hygiene 03-Partial/moderate assistance E. Shower/bathe self 03-Partial/moderate assistance F. Upper body dressing 03-Partial/moderate assistance G. Lower body dressing 02-Substantial/maximal assistance H. Putting on/taking off footwear 03-Partial/moderate assistance - Mobility J. Walk 50 feet with two turns 88-Not attempted due to medical condition or safety concerns B. Sit to lying 03-Partial/moderate assistance C. Lying to sitting on side of bed 04-Supervision or touching assistance D. Sit to stand 03-Partial/moderate assistance E. Chair/fpa-fy-viawa transfer 03-Partial/moderate assistance F. Toilet transfer 03-Partial/moderate assistance G. Car transfer 88-Not attempted due to medical condition or safety concerns I. Walk 10 feet 03-Partial/moderate assistance K. Walk 150 feet 88-Not attempted due to medical condition or safety concerns L. Walking 10 feet on uneven surfaces 88-Not attempted due to medical condition or safety concerns M. 1 step (curb) 88-Not attempted due to medical condition or safety concerns N. 4 steps 03-Partial/moderate assistance O. 12 steps 03-Partial/moderate assistance P. Picking up object 06-Independent R. Wheel 50 feet with two turns 88-Not attempted due to medical condition or safety concerns S. Wheel 150 feet 88-Not attempted due to medical condition or safety concerns - Bladder and Bowel Bladder continence 0-Always continent Bowel continence - Endurance Poor - Balance Poor - Safety Awareness Fair CURRENT FUNC. DEFICITS: Endurance, Balance, Safety Awareness, Self-Care, and Mobility SIGNATURE PANEL: (LIME KILN OPERATOR)
[2019-06-03] MEDS: MELATONIN 5 MG TABLET PO SCH (19:30)
[2019-06-03] MEDS: LIDOCAINE VISCOUS 2% SOLN 15 ML UDC MM SCH (19:31)
[2019-06-04] MEDS: ACETAMINOPHEN 500 MG TAB PO PRN ×4 (04:02→20:09)
[2019-06-04] MEDS: METOPROLOL TAR 25 MG TAB PO SCH ×2 (05:13→16:55)
[2019-06-04] MEDS: LEVOTHYROXINE SOD 0.05 MG TABLET PO SCH (07:05)
[2019-06-04] MEDS: PANTOPRAZOLE 40MG TABLET PO SCH (07:05)
[2019-06-04] MEDS: CLOTRIMAZOLE 1% CREAM 15 GM TOP SCH ×2 (08:00→20:10)
[2019-06-04] MEDS ORDERED: PROMOD 30 ML DOSE PO SCH (08:00)
[2019-06-04 08:07] LABS: Potassium 4.5 mmol/L (3.5-5.1)
[2019-06-04] MEDS: NYSTATIN 500,000 UNIT/5 ML UDC PO SCH ×3 (08:25→20:02)
[2019-06-04] MEDS: CRANBERRY FRUIT EXTRACT 200 MG CAP PO SCH ×2 (08:25→19:59)
[2019-06-04] MEDS: acetaZOLAMIDE 250 MG TAB PO SCH ×2 (08:25→20:02)
[2019-06-04] MEDS: CLOPIDOGREL 75 MG TABLET PO SCH (08:26)
[2019-06-04] MEDS: FE SULF/FA/VIT B COMP & C TAB PO SCH (08:26)
[2019-06-04] MEDS: GABAPENTIN 300 MG CAP PO SCH ×2 (08:28→20:01)
[2019-06-04] MEDS: PRAMIPEXOLE 1 MG TAB PO SCH (08:29)
[2019-06-04] MEDS: PROMOD 30 ML DOSE PO SCH ×2 (08:30→20:11)
[2019-06-04] MEDS: LIDOCAINE VISCOUS 2% SOLN 15 ML UDC MM SCH ×2 (08:30→20:02)
[2019-06-04] MEDS: FUROSEMIDE 40 MG TABLET PO SCH (11:00)
[2019-06-04 11:59] LABS: Arterial Blood Carboxyhemoglob 1.5 % (0-1.5); Blood Gas Oxyhemoglobin 94.9 % (94-97); Blood O2 Saturation 96.9 % (92-98.5)
--- NOTE | 2019-06-04 12:26 | P.PN ---
Subjective Date of Service: 06/04/19 Chief Complaint: Respiratory failure No change patient is non compliant refusing BiPAP she has hypoxic hypercapnic Review of Systems General: Weakness Respiratory: Shortness of Breath Physical Examination - Vital Signs Temperature: 97.5 F Blood Pressure: 127/62 Pulse: 69 Respirations: 18 Pulse Ox (%): 98 - Physical Exam General: Alert, In no apparent distress, Oriented x3 Respiratory: Clear to auscultation bilaterally, Diminished Cardiovascular: Normal S1 S2, Edema - Studies Laboratory Data (last 24 hrs) 06/04/19 07:34: Sodium 141, Potassium 4.5, BUN 25 H, Creatinine 1.07, Glucose 121 H Assessment & Plan - Problems (Diagnosis) (1) Respiratory failure Current Visit: No Status: Acute Plan: Patient has chronic respiratory failure refuses BiPAP increase Diamox to 250 mg p.o. b.i.d. Dc Lasix use a fullface mask patient currently has nasal pillows which is not really going to work with her BiPAP vital signs stable prognosis poor Qualifiers: Chronicity: chronic Respiratory failure complication: hypoxia and hypercapnia Qualified Code(s): J96.11 - Chronic respiratory failure with hypoxia; J96.12 - Chronic respiratory failure with hypercapnia
[2019-06-04] MEDS: RIVAROXABAN 15 MG TABLET PO SCH (16:54)
--- NOTE | 2019-06-04 17:30 | R.PN ---
ENCOUNTER DATE AND TIME: 06/04/2019 17:16 (SOLAR POWER INSTALLER) NAME LINH SANDS DATE OF : 1935 DATE OF ADMISSION: 05/31/2019 13:30 (SOLAR POWER INSTALLER) CHF exacerbationCHIEF COMPLAINT: CHF exacerbation and debility SUBJECTIVE: Pt denied any Shortness of Breath. Pt denied any depression. Ambulated 140' with contact guard assistance using a rolling walker. Blood work reviewed and Hgb is mildly low at 9.4. She is on hemocyte plus. Prealbumin is low at 14.5. Will start Promod. ABG done today shows pH 7.3, pCO2 elevated to 81.9 and pO2 normal at 95.9. The result shows CO2 reten tion secondary to hypoventilation. She now agreed to use her cPAP prescribed by Dr. Lora. She did speech therapy exercises with modified independence. VITAL SIGNS Temperature: 97.5 F SBP/DBP: 126/72 Pulse: 70 Resp: 14 MEDICATION ALLERGIES: Morphine Opioids Opiodids Codeine ENVIRONMENTAL ALLERGIES: None Known - Substance Allergies None Known - Other Allergies None Known NURSING: - Shower allowing shower ACTIVITIES OOB only with supervision THERAPIES: - Dietary and Nutrition Adequate Nutrition. Nutritional Education. Nutritional Supplements. PHYSICAL EXAM - Gen Alert and awake Lying in bed No apparent distress Oriented to: person, time, and place - Skin No skin breakdown. Normacephalic - Eyes No abnormalities - ENMT No abnormalities - Neck No abnormalities - CVS RRR - Chest No abnormalities - Resp Clear to auscultation - Abd Soft - GI Non distended Deferred - No abnormalities - Ext Mild bilateral lower extremity edema. - MSK 4/5 weakness in both lower extremities. - Neuro No focal deficits - Psych No abnormalities ASSESSMENT: Pt. is a 84 yo Right-handed white female.On 05/25/2019 she was admitted to [facility] wi th diagnosis CHF exacerbation.Her impairment category is Cardiac 09 - Cardiac Disorders (09).Pre-mor bidly, Pt. was independent/mod-I in Locomotion, Balance, Safety Awareness, Social Cognition, Transfer s Control, Sphincter Control, Self-Care, Communication, and Endurance; and she had good Locomotion, S afety Awareness, Balance, Social Cognition, Transfers Control, Sphincter Control, Self-Care, Communic ation, and Endurance.Currently, she has deficits of Locomotion, Balance, Safety Awareness, Transfers Control, Sphincter Control, Self-Care, Communication, Endurance, and Social Cognition.Pt. is now refe rred to [facility] for acute in-patient rehabilitation in order to maximize deedee brewer's functional independence in activities of daily living, strength, ROM, and mobility.- Rehab Go al Patient has realistic goal of being discharged at assistance level 6-Radha to reside at Home with Att endant. MDM/PLAN: - Physical Therapy Gait dysfunction - to improve, our physical therapists will perform initial evaluation of pt's statu s upon admission and devise an individualized program for Gait Training, and Wheel Chair mobility Inability to transfer - to improve, our physical therapists will perform initial evaluation of pt's status upon admission and devise an individualized program for Bed mobility Need for home safety evaluation - to improve, our physical therapists will perform initial evaluatio n of pt's status upon admission and devise an individualized program for Home Evaluation Need in caregiver upon discharge - to improve, our physical therapists will perform initial evaluati on of pt's status upon admission and devise an individualized program for Caregiver Training New precaution - to improve, our physical therapists will perform initial evaluation of pt's status upon admission and devise an individualized program for Patient precaution education Edema - to improve, our physical therapists will perform initial evaluation of pt's status upon admi ssion and devise an individualized program for Elevation Training, and Lymphedema Therapy Poor balance - to improve, our physical therapists will perform initial evaluation of pt's status up on admission and devise an individualized program for Balance Training Poor endurance - to improve, our physical therapists will perform initial evaluation of pt's status upon admission and devise an individualized program for Endurance Training Weakness - to improve, our physical therapists will perform initial evaluation of pt's status upon a dmission and devise an individualized program for Aquatic Therapy, Neuromuscular Reeducation, and Str engthening Achieving independence - to improve, our physical therapists will perform initial evaluation of pt's status upon admission and devise an individualized program for Community Reintegration Activities - Occupational Therapy ADL deficits - to improve, our occupation therapists will perform initial evaluation of pt's status upon admission and devise an individualized program for Bathing, Bed mobility, Community Reintegratio n, Cooking, Dressing, Eating, Fine Motor Skills, Grooming, Homemaking, Kitchen Mobility, Laundry, Pat ient Education, Safety Awareness, Splinting - Positioning, Transfers(Toilet, Tub, Shower), and Wheel Chair Management Cognitive deficits - to improve, our occupation therapists will perform initial evaluation of pt's s tatus upon admission and devise an individualized program for Cognition - orientation Need for care transition coordinator - to improve, our occupation therapists will perform initial evaluation of pt's status upon admission and devise an individualized program for Caregiver Training Weakness - to improve, our occupation therapists will perform initial evaluation of pt's status upon admission and devise an individualized program for Aquatic Therapy, Balance, Endurance, UE ROM, and UE strengthening - Other See attached MAR (Medication Administration Record) - Diet Type Continue Regular - Diet - Liquid Texture Continue Regular - Tube Feed Continue N/A - Diet - Solid Texture Continue Regular - Shower allowing shower FUNCTIONAL STATUS: UPDATED AT WEEKLY TEAM CONFERENCE - Bladder Same accident frequency: 7-Ind - No accidents in the past 7 days - Bowel Same accident frequency: 7-Ind - No accidents in the past 7 days - Walking Same score based on distance walked: 0(N/A) - Wheelchair Same score based on distance traveled: 0(N/A) FUNCTIONAL STATUS: - Self-Care A. Eating Radha B. Grooming Ind C. Bathing sup D. Dressing - Upper sup E. Dressing - Lower maxA F. Toileting Maria Isabel - Sphincter Control G. Bladder control Radha H. Bowel control Radha - Transfers Control I. Bed/Chair/Wheelchair modA J. Toilet modA K. Tub/Shower maxA - Locomotion L. Walk/Wheelchair (B) Maria Isabel M. Stairs ADNO - Communication N. Comprehension (B) sup O. Expression (B) sup - Social Cognition P. Social Interaction Radha Q. Problem Solving Maria Isabel R. Memory Maria Isabel - Endurance Poor - Balance Fair - Safety Awareness Good QI SCORES: - Self-Care A. Eating 06-Independent B. Oral hygiene 03-Partial/moderate assistance C. Toileting hygiene 03-Partial/moderate assistance E. Shower/bathe self 03-Partial/moderate assistance F. Upper body dressing 03-Partial/moderate assistance G. Lower body dressing 02-Substantial/maximal assistance H. Putting on/taking off footwear 03-Partial/moderate assistance - Mobility J. Walk 50 feet with two turns 88-Not attempted due to medical condition or safety concerns B. Sit to lying 03-Partial/moderate assistance C. Lying to sitting on side of bed 04-Supervision or touching assistance D. Sit to stand 03-Partial/moderate assistance E. Chair/[id number] transfer 03-Partial/moderate assistance F. Toilet transfer 03-Partial/moderate assistance G. Car transfer 88-Not attempted due to medical condition or safety concerns I. Walk 10 feet 03-Partial/moderate assistance K. Walk 150 feet 88-Not attempted due to medical condition or safety concerns L. Walking 10 feet on uneven surfaces 88-Not attempted due to medical condition or safety concerns M. 1 step (curb) 88-Not attempted due to medical condition or safety concerns N. 4 steps 03-Partial/moderate assistance O. 12 steps 03-Partial/moderate assistance P. Picking up object 06-Independent R. Wheel 50 feet with two turns 88-Not attempted due to medical condition or safety concerns S. Wheel 150 feet 88-Not attempted due to medical condition or safety concerns - Bladder and Bowel Bladder continence 0-Always continent Bowel continence - Endurance Poor - Balance Poor - Safety Awareness Fair CURRENT FUNC. DEFICITS: Endurance, Balance, Safety Awareness, Self-Care, and Mobility SIGNATURE PANEL: (SOLAR POWER INSTALLER)
[2019-06-04] MEDS: MELATONIN 5 MG TABLET PO SCH (20:02)
[2019-06-05] MEDS: ACETAMINOPHEN 500 MG TAB PO PRN ×4 (00:05→20:26)
[2019-06-05] MEDS: METOPROLOL TAR 25 MG TAB PO SCH ×2 (05:10→17:02)
[2019-06-05 05:33] VITALS: BMI 39.8
[2019-06-05] MEDS: LEVOTHYROXINE SOD 0.05 MG TABLET PO SCH (06:57)
[2019-06-05] MEDS: PANTOPRAZOLE 40MG TABLET PO SCH (06:57)
[2019-06-05] MEDS: PRAMIPEXOLE 1 MG TAB PO SCH (08:19)
[2019-06-05] MEDS: acetaZOLAMIDE 250 MG TAB PO SCH ×2 (08:19→20:25)
[2019-06-05] MEDS: GABAPENTIN 300 MG CAP PO SCH ×2 (08:19→20:25)
[2019-06-05] MEDS: NYSTATIN 500,000 UNIT/5 ML UDC PO SCH ×3 (08:19→20:26)
[2019-06-05] MEDS: CRANBERRY FRUIT EXTRACT 200 MG CAP PO SCH ×2 (08:20→20:25)
[2019-06-05] MEDS: LIDOCAINE VISCOUS 2% SOLN 15 ML UDC MM SCH ×2 (08:20→20:25)
[2019-06-05] MEDS: CLOTRIMAZOLE 1% CREAM 15 GM TOP SCH ×2 (08:20→20:25)
[2019-06-05] MEDS: CLOPIDOGREL 75 MG TABLET PO SCH (08:20)
[2019-06-05] MEDS: FE SULF/FA/VIT B COMP & C TAB PO SCH (08:20)
[2019-06-05] MEDS: PROMOD 30 ML DOSE PO SCH ×2 (08:26→20:27)
--- NOTE | 2019-06-05 14:45 | FAST ---
ENCOUNTER DATE AND TIME: 06/05/2019 08:00 (DUPLICATION SPECIALIST) NAME LINH SANDS DATE OF : 1935 DATE OF ADMISSION: 05/31/2019 13:30 (DUPLICATION SPECIALIST) PHONE: AGE: 84 N# [id number] GENDER: Female ENCOUNTER PHYSICIAN: Dr. Rambo De La Rosa M.D. ADMISSION DIAGNOSIS: - Cardiac 09 - Cardiac Disorders () CHF exacerbation. EATING: Not assessed/no information CODE: - ORAL HYGIENE: ORAL HYGIENE - STEP 1: Does the patient complete the activity by him/herself with no assistance (physical, verbal/nonverbal cueing, setup/clean-up)? No. ORAL HYGIENE - STEP 2: Does the patient need only setup/clean-up assistance from one helper? Yes. 1. [id number] ADMISSION PERFORMANCE: Setup or clean-up assistance CODE: 05 TOILETING HYGIENE: Not assessed/no information CODE: - BATHING: SHOWER/BATHE SELF - STEP 1: Does the patient complete the activity by him/herself with no assistance (physical, verbal/nonverbal cueing, setup/clean-up)? No. SHOWER/BATHE SELF - STEP 2: Does the patient need only setup/clean-up assistance from one helper? No. SHOWER/BATHE SELF - STEP 3: Does the patient need only verbal/nonverbal cueing or touching/steadying/contact guard assistance fro m one helper? No. SHOWER/BATHE SELF - STEP 4: Does the patient need physical assistance - for example lifting or trunk support from one helper - wi th the helper providing less than half of the effort? Yes. 1. [id number] ADMISSION PERFORMANCE: Partial/moderate assistance CODE: 03 DRESSING - UPPER BODY: DRESSING - UPPER BODY - STEP 1: Does the patient complete the activity by him/herself with no assistance (physical, verbal/nonverbal cueing, setup/clean-up)? No. DRESSING - UPPER BODY - STEP 2: Does the patient need only setup/clean-up assistance from one helper? No. DRESSING - UPPER BODY - STEP 3: Does the patient need only verbal/nonverbal cueing or touching/steadying/contact guard assistance fro m one helper? No. DRESSING - UPPER BODY - STEP 4: Does the patient need physical assistance - for example lifting or trunk support from one helper - wi th the helper providing less than half of the effort? Yes. 1. [id number] ADMISSION PERFORMANCE: Partial/moderate assistance CODE: 03 DRESSING - LOWER BODY: DRESSING - LOWER BODY - STEP 1: Does the patient complete the activity by him/herself with no assistance (physical, verbal/nonverbal cueing, setup/clean-up)? No. DRESSING - LOWER BODY - STEP 2: Does the patient need only setup/clean-up assistance from one helper? No. DRESSING - LOWER BODY - STEP 3: Does the patient need only verbal/nonverbal cueing or touching/steadying/contact guard assistance fro m one helper? No. DRESSING - LOWER BODY - STEP 4: Does the patient need physical assistance - for example lifting or trunk support from one helper - wi th the helper providing less than half of the effort? Yes. 1. [id number] ADMISSION PERFORMANCE: Partial/moderate assistance CODE: 03 PUTTING ON/TAKING OFF FOOTWEAR: FOOTWEAR - STEP 1: Does the patient complete the activity by him/herself with no assistance (physical, verbal/nonverbal cueing, setup/clean-up)? No. FOOTWEAR - STEP 2: Does the patient need only setup/clean-up assistance from one helper? No. FOOTWEAR - STEP 3: Does the patient need only verbal/nonverbal cueing or touching/steadying/contact guard assistance fro m one helper? No. FOOTWEAR - STEP 4: Does the patient need physical assistance - for example lifting or trunk support from one helper - wi th the helper providing less than half of the effort? No. FOOTWEAR - STEP 5: Does the patient need physical assistance - for example lifting or trunk support from one helper - wi th the helper providing more than half of the effort? Yes. 1. [id number] ADMISSION PERFORMANCE: Substantial/maximal assistance CODE: 02 DOES THE PATIENT USE A WHEELCHAIR/SCOOTER? CODE: EXPR INDICATE THE TYPE OF WHEELCHAIR/SCOOTER USED: CODE: EXPR INDICATE THE TYPE OF WHEELCHAIR/SCOOTER USED: CODE: EXPR BLADDER AND BOWEL: CODE: EXPR CODE: EXPR SIGNATURE PANEL: The following modified sections: 1. [id number] Admission Performance, 1. [id number] Admission Performance, 1. [id number] Admission Performance, 1. [id number] Admission Performance, 1. [id number] Admission Performance, 1. [id number] Admission Performance were [electronically] signed by MAXIMO Looney on MonJun 05 2019 14:44:56 GMT-0600 (Central Standard Time)
--- NOTE | 2019-06-05 14:51 | RAD REPORT ---
EXAM DESCRIPTION: RAD - Chest Single View - 06/05/2019 2:43 pm CLINICAL HISTORY: Shortness of breath COMPARISON: May 28, 2019 FINDINGS: Bibasilar lung opacities probably a combination pleural effusions and atelectasis. Mild bilateral in terstitial lung opacities. The heart remains enlarged. Pacemaker leads in place IMPRESSION: These findings probably indicate mild to moderate CHF
[2019-06-05] MEDS: RIVAROXABAN 15 MG TABLET PO SCH (17:02)
--- NOTE | 2019-06-05 17:43 | R.PN ---
ENCOUNTER DATE AND TIME: 06/05/2019 17:36 (SUPERVISOR STOCK RANCH) NAME LINH SANDS DATE OF : 1935 DATE OF ADMISSION: 05/31/2019 13:30 (SUPERVISOR STOCK RANCH) CHF exacerbationCHIEF COMPLAINT: CHF exacerbation and debility SUBJECTIVE: Pt denied any Shortness of Breath. Pt denied any depression. Ambulated 129' with contact guard assistance using a rolling walker. Blood work reviewed and Hgb is mildly low at 9.4. She is on hemocyte plus. Prealbumin is low at 14.5. Will start Promod. ABG done today shows pH 7.3, pCO2 elevated to 81.9 and pO2 normal at 95.9. The result shows CO2 reten tion secondary to hypoventilation. She now agreed to use her cPAP prescribed by Dr. Lora. She did speech therapy exercises with modified independence. Chest x-ray show mild to moderate CHF. She cannot tolerate auto-bipap. Will encourage incentive oneida metry. VITAL SIGNS Temperature: 97.5 F SBP/DBP: 126/78 Pulse: 70 Resp: 16 MEDICATION ALLERGIES: Morphine Opioids Opiodids Codeine ENVIRONMENTAL ALLERGIES: None Known - Substance Allergies None Known - Other Allergies None Known NURSING: - Shower allowing shower ACTIVITIES OOB only with supervision THERAPIES: - Dietary and Nutrition Adequate Nutrition. Nutritional Education. Nutritional Supplements. PHYSICAL EXAM - Gen Alert and awake Lying in bed No apparent distress Oriented to: person, time, and place - Skin No skin breakdown. Normacephalic - Eyes No abnormalities - ENMT No abnormalities - Neck No abnormalities - CVS RRR - Chest No abnormalities - Resp Clear to auscultation - Abd Soft - GI Non distended Deferred - No abnormalities - Ext Mild bilateral lower extremity edema. - MSK 4/5 weakness in both lower extremities. - Neuro No focal deficits - Psych No abnormalities ASSESSMENT: Pt. is a 84 yo Right-handed white female.On 05/25/2019 she was admitted to [facility] wi th diagnosis CHF exacerbation.Her impairment category is Cardiac 09 - Cardiac Disorders (09).Pre-mor bidly, Pt. was independent/mod-I in Locomotion, Balance, Safety Awareness, Social Cognition, Transfer s Control, Sphincter Control, Self-Care, Communication, and Endurance; and she had good Locomotion, S afety Awareness, Balance, Social Cognition, Transfers Control, Sphincter Control, Self-Care, Communic ation, and Endurance.Currently, she has deficits of Locomotion, Balance, Safety Awareness, Transfers Control, Sphincter Control, Self-Care, Communication, Endurance, and Social Cognition.Pt. is now refe rred to [facility] for acute in-patient rehabilitation in order to maximize deedee brewer's functional independence in activities of daily living, strength, ROM, and mobility.- Rehab Go al Patient has realistic goal of being discharged at assistance level 6-Radha to reside at Home with Att endant. MDM/PLAN: - Physical Therapy Gait dysfunction - to improve, our physical therapists will perform initial evaluation of pt's statu s upon admission and devise an individualized program for Gait Training, and Wheel Chair mobility Inability to transfer - to improve, our physical therapists will perform initial evaluation of pt's status upon admission and devise an individualized program for Bed mobility Need for home safety evaluation - to improve, our physical therapists will perform initial evaluatio n of pt's status upon admission and devise an individualized program for Home Evaluation Need in caregiver upon discharge - to improve, our physical therapists will perform initial evaluati on of pt's status upon admission and devise an individualized program for Caregiver Training New precaution - to improve, our physical therapists will perform initial evaluation of pt's status upon admission and devise an individualized program for Patient precaution education Edema - to improve, our physical therapists will perform initial evaluation of pt's status upon admi ssion and devise an individualized program for Elevation Training, and Lymphedema Therapy Poor balance - to improve, our physical therapists will perform initial evaluation of pt's status up on admission and devise an individualized program for Balance Training Poor endurance - to improve, our physical therapists will perform initial evaluation of pt's status upon admission and devise an individualized program for Endurance Training Weakness - to improve, our physical therapists will perform initial evaluation of pt's status upon a dmission and devise an individualized program for Aquatic Therapy, Neuromuscular Reeducation, and Str engthening Achieving independence - to improve, our physical therapists will perform initial evaluation of pt's status upon admission and devise an individualized program for Community Reintegration Activities - Occupational Therapy ADL deficits - to improve, our occupation therapists will perform initial evaluation of pt's status upon admission and devise an individualized program for Bathing, Bed mobility, Community Reintegratio n, Cooking, Dressing, Eating, Fine Motor Skills, Grooming, Homemaking, Kitchen Mobility, Laundry, Pat ient Education, Safety Awareness, Splinting - Positioning, Transfers(Toilet, Tub, Shower), and Wheel Chair Management Cognitive deficits - to improve, our occupation therapists will perform initial evaluation of pt's s tatus upon admission and devise an individualized program for Cognition - orientation Need for patient care specialist - to improve, our occupation therapists will perform initial evaluation of pt's status upon admission and devise an individualized program for Caregiver Training Weakness - to improve, our occupation therapists will perform initial evaluation of pt's status upon admission and devise an individualized program for Aquatic Therapy, Balance, Endurance, UE ROM, and UE strengthening - Other See attached MAR (Medication Administration Record) - Diet Type Continue Regular - Diet - Liquid Texture Continue Regular - Tube Feed Continue N/A - Diet - Solid Texture Continue Regular - Shower allowing shower FUNCTIONAL STATUS: UPDATED AT WEEKLY TEAM CONFERENCE - Bladder Same accident frequency: 7-Ind - No accidents in the past 7 days - Bowel Same accident frequency: 7-Ind - No accidents in the past 7 days - Walking Same score based on distance walked: 0(N/A) - Wheelchair Same score based on distance traveled: 0(N/A) FUNCTIONAL STATUS: - Self-Care A. Eating Radha B. Grooming Ind C. Bathing sup D. Dressing - Upper sup E. Dressing - Lower maxA F. Toileting Maria Isabel - Sphincter Control G. Bladder control Radha H. Bowel control Radha - Transfers Control I. Bed/Chair/Wheelchair modA J. Toilet modA K. Tub/Shower maxA - Locomotion L. Walk/Wheelchair (B) Maria Isabel M. Stairs ADNO - Communication N. Comprehension (B) sup O. Expression (B) sup - Social Cognition P. Social Interaction Radha Q. Problem Solving Maria Isabel R. Memory Maria Isabel - Endurance Poor - Balance Fair - Safety Awareness Good QI SCORES: - Self-Care A. Eating 06-Independent B. Oral hygiene 03-Partial/moderate assistance C. Toileting hygiene 03-Partial/moderate assistance E. Shower/bathe self 03-Partial/moderate assistance F. Upper body dressing 03-Partial/moderate assistance G. Lower body dressing 02-Substantial/maximal assistance H. Putting on/taking off footwear 03-Partial/moderate assistance - Mobility J. Walk 50 feet with two turns 88-Not attempted due to medical condition or safety concerns B. Sit to lying 03-Partial/moderate assistance C. Lying to sitting on side of bed 04-Supervision or touching assistance D. Sit to stand 03-Partial/moderate assistance E. Chair/pyn-ik-bcilm transfer 03-Partial/moderate assistance F. Toilet transfer 03-Partial/moderate assistance G. Car transfer 88-Not attempted due to medical condition or safety concerns I. Walk 10 feet 03-Partial/moderate assistance K. Walk 150 feet 88-Not attempted due to medical condition or safety concerns L. Walking 10 feet on uneven surfaces 88-Not attempted due to medical condition or safety concerns M. 1 step (curb) 88-Not attempted due to medical condition or safety concerns N. 4 steps 03-Partial/moderate assistance O. 12 steps 03-Partial/moderate assistance P. Picking up object 06-Independent R. Wheel 50 feet with two turns 88-Not attempted due to medical condition or safety concerns S. Wheel 150 feet 88-Not attempted due to medical condition or safety concerns - Bladder and Bowel Bladder continence 0-Always continent Bowel continence - Endurance Poor - Balance Poor - Safety Awareness Fair CURRENT FUNC. DEFICITS: Endurance, Balance, Safety Awareness, Self-Care, and Mobility SIGNATURE PANEL: (SUPERVISOR STOCK RANCH)
[2019-06-05] MEDS ORDERED: MELATONIN 3 MG TABLET PO SCH (21:00)
[2019-06-06] MEDS: ACETAMINOPHEN 500 MG TAB PO PRN ×2 (00:19→07:31)
[2019-06-06] MEDS: METOPROLOL TAR 25 MG TAB PO SCH ×2 (05:07→17:16)
[2019-06-06 06:03] LABS: Absolute Lymphocytes (CBC) 1.1 K/uL (0.7-4.9); Hematocrit 30.4 % (36.0-45.0); Lymphocytes % 12.9 % (15.3-44.8); MPV 8.9 fL (7.6-11.3); RBC Red Blood Cell Count 3.13 M/uL (3.86-4.86)
[2019-06-06] MEDS: PANTOPRAZOLE 40MG TABLET PO SCH (06:25)
[2019-06-06] MEDS: LEVOTHYROXINE SOD 0.05 MG TABLET PO SCH (06:25)
[2019-06-06 06:57] VITALS: TEMP 96.6
[2019-06-06 07:17] LABS: Albumin 2.8 g/dL (3.4-5.0); Magnesium 2.2 mg/dL (1.8-2.4); Prealbumin 15.3 mg/dL (20-40)
[2019-06-06] MEDS: LIDOCAINE VISCOUS 2% SOLN 15 ML UDC MM SCH (07:28)
[2019-06-06] MEDS: CLOPIDOGREL 75 MG TABLET PO SCH (07:28)
[2019-06-06] MEDS: GABAPENTIN 300 MG CAP PO SCH (07:29)
[2019-06-06] MEDS: PRAMIPEXOLE 1 MG TAB PO SCH (07:29)
[2019-06-06] MEDS: FE SULF/FA/VIT B COMP & C TAB PO SCH (07:29)
[2019-06-06] MEDS: CLOTRIMAZOLE 1% CREAM 15 GM TOP SCH (07:29)
[2019-06-06] MEDS: CRANBERRY FRUIT EXTRACT 200 MG CAP PO SCH (07:29)
[2019-06-06] MEDS: acetaZOLAMIDE 250 MG TAB PO SCH (07:29)
[2019-06-06] MEDS: PROMOD 30 ML DOSE PO SCH (07:31)
[2019-06-06] MEDS: NYSTATIN 500,000 UNIT/5 ML UDC PO SCH ×2 (08:47→13:16)
[2019-06-06] MEDS ORDERED: TRAMADOL HCL 50 MG TAB PO PRN (10:16)
[2019-06-06 12:54] VITALS: O2SAT 98
[2019-06-06 15:45] LABS: Arterial Blood Carboxyhemoglob 1.5 % (0-1.5); Blood Gas Oxyhemoglobin 87.9 % (94-97); Blood O2 Saturation 90.2 % (92-98.5)
[2019-06-06] MEDS: RIVAROXABAN 15 MG TABLET PO SCH (17:16)
[2019-06-06 17:18] VITALS: BP 136/63
[2019-06-06 17:54] LABS: Arterial Blood Carboxyhemoglob 1.5 % (0-1.5); Blood Gas Oxyhemoglobin 92.8 % (94-97)
--- NOTE | 2019-06-06 18:21 | R.PN ---
ENCOUNTER DATE AND TIME: 06/06/2019 18:14 (PORCELAIN FINISHER) NAME LINH SANDS DATE OF : 1935 DATE OF ADMISSION: 05/31/2019 13:30 (PORCELAIN FINISHER) CHF exacerbationCHIEF COMPLAINT: CHF exacerbation and debility SUBJECTIVE: Pt denied any Shortness of Breath. Pt denied any depression. Ambulated 129' with contact guard assistance using a rolling walker. Blood work reviewed and Hgb is mildly low at 9.4. She is on hemocyte plus. Prealbumin is low at 14.5. Will start Promod. ABG done today shows pH 7.3, pCO2 elevated to 81.9 and pO2 normal at 95.9. The result shows CO2 reten tion secondary to hypoventilation. She now agreed to use her cPAP prescribed by Dr. Lora. She did speech therapy exercises with modified independence. Chest x-ray show mild to moderate CHF. She cannot tolerate auto-bipap. Will encourage incentive oneida metry. Her repeat ABG x 2 show worsening hypercapnia and hypoxia despite intermittent use of auto bipap. pCO 2 increased from 81.9 to 106.0 and pH decreased from 7.3 to 7.19 over two days with 30% inspired O2. Her chest x-ray show mild to moderate CHF. She is becoming increasingly confused and is following com mands partially. She will be transferred to the ICU or at least telemetry for a higher level of care. VITAL SIGNS Temperature: 97.5 F SBP/DBP: 126/78 Pulse: 70 Resp: 16 MEDICATION ALLERGIES: Morphine Opioids Opiodids Codeine ENVIRONMENTAL ALLERGIES: None Known - Substance Allergies None Known - Other Allergies None Known NURSING: - Shower allowing shower ACTIVITIES OOB only with supervision THERAPIES: - Dietary and Nutrition Adequate Nutrition. Nutritional Education. Nutritional Supplements. PHYSICAL EXAM - Gen Alert and awake Lying in bed No apparent distress Oriented to: person, time, and place - Skin No skin breakdown. Normacephalic - Eyes No abnormalities - ENMT No abnormalities - Neck No abnormalities - CVS RRR - Chest No abnormalities - Resp Clear to auscultation - Abd Soft - GI Non distended Deferred - No abnormalities - Ext Mild bilateral lower extremity edema. - MSK 4/5 weakness in both lower extremities. - Neuro No focal deficits - Psych No abnormalities ASSESSMENT: Pt. is a 84 yo Right-handed white female.On 05/25/2019 she was admitted to [facility] wi th diagnosis CHF exacerbation.Her impairment category is Cardiac 09 - Cardiac Disorders (09).Pre-mor bidly, Pt. was independent/mod-I in Locomotion, Balance, Safety Awareness, Social Cognition, Transfer s Control, Sphincter Control, Self-Care, Communication, and Endurance; and she had good Locomotion, S afety Awareness, Balance, Social Cognition, Transfers Control, Sphincter Control, Self-Care, Communic ation, and Endurance.Currently, she has deficits of Locomotion, Balance, Safety Awareness, Transfers Control, Sphincter Control, Self-Care, Communication, Endurance, and Social Cognition.Pt. is now refe rred to [facility] for acute in-patient rehabilitation in order to maximize deedee brewer's functional independence in activities of daily living, strength, ROM, and mobility.- Rehab Go al Patient has realistic goal of being discharged at assistance level 6-Radha to reside at Home with Att endant. MDM/PLAN: - Physical Therapy Gait dysfunction - to improve, our physical therapists will perform initial evaluation of pt's statu s upon admission and devise an individualized program for Gait Training, and Wheel Chair mobility Inability to transfer - to improve, our physical therapists will perform initial evaluation of pt's status upon admission and devise an individualized program for Bed mobility Need for home safety evaluation - to improve, our physical therapists will perform initial evaluatio n of pt's status upon admission and devise an individualized program for Home Evaluation Need in caregiver upon discharge - to improve, our physical therapists will perform initial evaluati on of pt's status upon admission and devise an individualized program for Caregiver Training New precaution - to improve, our physical therapists will perform initial evaluation of pt's status upon admission and devise an individualized program for Patient precaution education Edema - to improve, our physical therapists will perform initial evaluation of pt's status upon admi ssion and devise an individualized program for Elevation Training, and Lymphedema Therapy Poor balance - to improve, our physical therapists will perform initial evaluation of pt's status up on admission and devise an individualized program for Balance Training Poor endurance - to improve, our physical therapists will perform initial evaluation of pt's status upon admission and devise an individualized program for Endurance Training Weakness - to improve, our physical therapists will perform initial evaluation of pt's status upon a dmission and devise an individualized program for Aquatic Therapy, Neuromuscular Reeducation, and Str engthening Achieving independence - to improve, our physical therapists will perform initial evaluation of pt's status upon admission and devise an individualized program for Community Reintegration Activities - Occupational Therapy ADL deficits - to improve, our occupation therapists will perform initial evaluation of pt's status upon admission and devise an individualized program for Bathing, Bed mobility, Community Reintegratio n, Cooking, Dressing, Eating, Fine Motor Skills, Grooming, Homemaking, Kitchen Mobility, Laundry, Pat ient Education, Safety Awareness, Splinting - Positioning, Transfers(Toilet, Tub, Shower), and Wheel Chair Management Cognitive deficits - to improve, our occupation therapists will perform initial evaluation of pt's s tatus upon admission and devise an individualized program for Cognition - orientation Need for direct support professional caregiver - to improve, our occupation therapists will perform initial evaluation of pt's status upon admission and devise an individualized program for Caregiver Training Weakness - to improve, our occupation therapists will perform initial evaluation of pt's status upon admission and devise an individualized program for Aquatic Therapy, Balance, Endurance, UE ROM, and UE strengthening - Other See attached MAR (Medication Administration Record) - Diet Type Continue Regular - Diet - Liquid Texture Continue Regular - Tube Feed Continue N/A - Diet - Solid Texture Continue Regular - Shower allowing shower FUNCTIONAL STATUS: UPDATED AT WEEKLY TEAM CONFERENCE - Bladder Same accident frequency: 7-Ind - No accidents in the past 7 days - Bowel Same accident frequency: 7-Ind - No accidents in the past 7 days - Walking Same score based on distance walked: 0(N/A) - Wheelchair Same score based on distance traveled: 0(N/A) FUNCTIONAL STATUS: - Self-Care A. Eating Radha B. Grooming Ind C. Bathing sup D. Dressing - Upper sup E. Dressing - Lower maxA F. Toileting Maria Isabel - Sphincter Control G. Bladder control Radha H. Bowel control Radha - Transfers Control I. Bed/Chair/Wheelchair modA J. Toilet modA K. Tub/Shower maxA - Locomotion L. Walk/Wheelchair (B) Maria Isabel M. Stairs ADNO - Communication N. Comprehension (B) sup O. Expression (B) sup - Social Cognition P. Social Interaction Radha Q. Problem Solving Maria Isabel R. Memory Maria Isabel - Endurance Poor - Balance Fair - Safety Awareness Good QI SCORES: - Self-Care A. Eating 06-Independent B. Oral hygiene 03-Partial/moderate assistance C. Toileting hygiene 03-Partial/moderate assistance E. Shower/bathe self 03-Partial/moderate assistance F. Upper body dressing 03-Partial/moderate assistance G. Lower body dressing 02-Substantial/maximal assistance H. Putting on/taking off footwear 03-Partial/moderate assistance - Mobility J. Walk 50 feet with two turns 88-Not attempted due to medical condition or safety concerns B. Sit to lying 03-Partial/moderate assistance C. Lying to sitting on side of bed 04-Supervision or touching assistance D. Sit to stand 03-Partial/moderate assistance E. Chair/ezx-kg-hjvro transfer 03-Partial/moderate assistance F. Toilet transfer 03-Partial/moderate assistance G. Car transfer 88-Not attempted due to medical condition or safety concerns I. Walk 10 feet 03-Partial/moderate assistance K. Walk 150 feet 88-Not attempted due to medical condition or safety concerns L. Walking 10 feet on uneven surfaces 88-Not attempted due to medical condition or safety concerns M. 1 step (curb) 88-Not attempted due to medical condition or safety concerns N. 4 steps 03-Partial/moderate assistance O. 12 steps 03-Partial/moderate assistance P. Picking up object 06-Independent R. Wheel 50 feet with two turns 88-Not attempted due to medical condition or safety concerns S. Wheel 150 feet 88-Not attempted due to medical condition or safety concerns - Bladder and Bowel Bladder continence 0-Always continent Bowel continence - Endurance Poor - Balance Poor - Safety Awareness Fair [facility] DEFICITS: Endurance, Balance, Safety Awareness, Self-Care, and Mobility SIGNATURE PANEL: (PORCELAIN FINISHER)
--- NOTE | 2019-06-07 15:43 | FAST ---
ENCOUNTER DATE AND TIME: 06/06/2019 08:00 (RECTIFICATION PRINTER) NAME LINH SANDS DATE OF : 1935 DATE OF ADMISSION: 05/31/2019 13:30 (RECTIFICATION PRINTER) PHONE: AGE: 84 N# [id number] GENDER: Female ENCOUNTER PHYSICIAN: Dr. Rambo De La Rosa M.D. ADMISSION DIAGNOSIS: - Cardiac 09 - Cardiac Disorders () CHF exacerbation. ROLL LEFT AND RIGHT: ROLL LEFT AND RIGHT - STEP 1: Does the patient complete the activity by him/herself with no assistance (physical, verbal/nonverbal cueing, setup/clean-up)? No. ROLL LEFT AND RIGHT - STEP 2: Does the patient need only setup/clean-up assistance from one helper? No. ROLL LEFT AND RIGHT - STEP 3: Does the patient need only verbal/nonverbal cueing or touching/steadying/contact guard assistance fro m one helper? No. ROLL LEFT AND RIGHT - STEP 4: Does the patient need physical assistance - for example lifting or trunk support from one helper - wi th the helper providing less than half of the effort? Yes. 1. [id number] ADMISSION PERFORMANCE: Partial/moderate assistance CODE: 03 SIT TO LYING: SIT TO LYING - STEP 1: Does the patient complete the activity by him/herself with no assistance (physical, verbal/nonverbal cueing, setup/clean-up)? No. SIT TO LYING - STEP 2: Does the patient need only setup/clean-up assistance from one helper? No. SIT TO LYING - STEP 3: Does the patient need only verbal/nonverbal cueing or touching/steadying/contact guard assistance fro m one helper? No. SIT TO LYING - STEP 4: Does the patient need physical assistance - for example lifting or trunk support from one helper - wi th the helper providing less than half of the effort? Yes. 1. [id number] ADMISSION PERFORMANCE: Partial/moderate assistance CODE: 03 LYING TO SITTING: LYING TO SITTING ON SIDE OF BED - STEP 1: Does the patient complete the activity by him/herself with no assistance (physical, verbal/nonverbal cueing, setup/clean-up)? No. LYING TO SITTING ON SIDE OF BED - STEP 2: Does the patient need only setup/clean-up assistance from one helper? No. LYING TO SITTING ON SIDE OF BED - STEP 3: Does the patient need only verbal/nonverbal cueing or touching/steadying/contact guard assistance fro m one helper? No. LYING TO SITTING ON SIDE OF BED - STEP 4: Does the patient need physical assistance - for example lifting or trunk support from one helper - wi th the helper providing less than half of the effort? Yes. 1. [id number] ADMISSION PERFORMANCE: Partial/moderate assistance CODE: 03 SIT TO STAND: SIT TO STAND - STEP 1: Does the patient complete the activity by him/herself with no assistance (physical, verbal/nonverbal cueing, setup/clean-up)? No. SIT TO STAND - STEP 2: Does the patient need only setup/clean-up assistance from one helper? No. SIT TO STAND - STEP 3: Does the patient need only verbal/nonverbal cueing or touching/steadying/contact guard assistance fro m one helper? No. SIT TO STAND - STEP 4: Does the patient need physical assistance - for example lifting or trunk support from one helper - wi th the helper providing less than half of the effort? Yes. 1. [id number] ADMISSION PERFORMANCE: Partial/moderate assistance CODE: 03 TRANSFERS: BED, CHAIR: CHAIR/[id number] TRANSFER - STEP 1: Does the patient complete the activity by him/herself with no assistance (physical, verbal/nonverbal cueing, setup/clean-up)? No. CHAIR/[id number] TRANSFER - STEP 2: Does the patient need only setup/clean-up assistance from one helper? No. CHAIR/CLI-KQ-LMYLF TRANSFER - STEP 3: Does the patient need only verbal/nonverbal cueing or touching/steadying/contact guard assistance fro m one helper? No. CHAIR/[id number]-[id number] TRANSFER - STEP 4: Does the patient need physical assistance - for example lifting or trunk support from one helper - wi th the helper providing less than half of the effort? Yes. 1. [id number] ADMISSION PERFORMANCE: Partial/moderate assistance CODE: 03 TRANSFER TOILET: TOILET TRANSFER - STEP 1: Does the patient complete the activity by him/herself with no assistance (physical, verbal/nonverbal cueing, setup/clean-up)? No. TOILET TRANSFER - STEP 2: Does the patient need only setup/clean-up assistance from one helper? No. TOILET TRANSFER - STEP 3: Does the patient need only verbal/nonverbal cueing or touching/steadying/contact guard assistance fro m one helper? No. TOILET TRANSFER - STEP 4: Does the patient need physical assistance - for example lifting or trunk support from one helper - wi th the helper providing less than half of the effort? Yes. 1. [id number] ADMISSION PERFORMANCE: Partial/moderate assistance CODE: 03 TRANSFERS: CAR: Not attempted due to environmental limitations (e.g., lack of equipment, weather constraints) CODE: 10 WALK 10 FEET: WALK 10 FEET - STEP 1: Does the patient complete the activity by him/herself with no assistance (physical, verbal/nonverbal cueing, setup/clean-up)? No. WALK 10 FEET - STEP 2: Does the patient need only setup/clean-up assistance from one helper? No. WALK 10 FEET - STEP 3: Does the patient need only verbal/nonverbal cueing or touching/steadying/contact guard assistance fro m one helper? Yes. 1. [id number] ADMISSION PERFORMANCE: Supervision or touching assistance CODE: 04 WALK 50 FEET: Not attempted due to medical condition or safety concerns CODE: 88 WALK 150 FEET: Not attempted due to medical condition or safety concerns CODE: 88 WALK 10 FEET UNEVEN: Not attempted due to medical condition or safety concerns CODE: 88 1 STEP (CURB): Not attempted due to medical condition or safety concerns CODE: 88 PICKING UP OBJECT: Not attempted due to medical condition or safety concerns CODE: 88 DOES THE PATIENT USE A WHEELCHAIR/SCOOTER? Q1. DOES THE PATIENT USE A WHEELCHAIR/SCOOTER?: Yes CODE: 1 INDICATE THE TYPE OF WHEELCHAIR/SCOOTER USED: RR1. INDICATE THE TYPE OF WHEELCHAIR/SCOOTER USED.: Manual CODE: 1 WHEEL 150 FEET: Not attempted due to medical condition or safety concerns CODE: 88 INDICATE THE TYPE OF WHEELCHAIR/SCOOTER USED: CODE: EXPR BLADDER AND BOWEL: CODE: EXPR CODE: EXPR SIGNATURE PANEL: The following modified sections: 1. [id number] Admission Performance, 1. [id number] Admission Performance, 1. [id number] Admission Performance, 1. [id number] Admission Performance, 1. [id number] Admission Performance, 1. [id number] Admission Performance, 1. [id number] Admission Performance, Q1. Does the patient use a wheel chair/scooter?, 1. [id number] Admission Performance, RR1. Indicate the type of wheelchair/scooter used., Code were [electronically] signed by Roberto Sumner PTA on MonJun 07 2019 15:41:59 GMT-0600 ([facility] tandard Time)
--- NOTE | 2019-06-20 18:54 | R.DS ---
FACILITY [facility] MR# [id number] NAME COCO MELTON ADDRESS [address] [place] [address] [address] [address] PHONE DATE OF 1935 AGE 84 SSN# [id number] GENDER Female DEXTERITY Right-handed MARITAL STATUS RACE White ENCOUNTER PHYSICIAN Dr. Rambo De La Rosa M.D. REFERRING DOCTOR DR VACA REFERRING FACILITY [facility] DISCHARGE DIAGNOSIS: - Cardiac 09 - Cardiac Disorders () CHF exacerbation. 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 NURSING: - Shower allowing shower RESPIRATORY THERAPY: - She is discharge to the acute care floor with CHF exacerbation and acute respiratory distress. RESPIRATORY THERAPY: - She is discharge to the acute care floor with CHF exacerbation and acute respiratory distress. ACTIVITIES OOB only with supervision THERAPIES: - Dietary and Nutrition Adequate Nutrition Nutritional Education Nutritional Supplements HISTORY OF PRESENT ILLNESS: Pt. is a 84 yo Right-handed white female.On 05/25/2019 she was admitted to [facility] wi th diagnosis CHF exacerbation.Her impairment category is Cardiac 09 - Cardiac Disorders ().Pre-mor bidly, Pt. was independent/mod-I in Locomotion, Balance, Safety Awareness, Social Cognition, Transfer s Control, Sphincter Control, Self-Care, Communication, and Endurance; and she had good Locomotion, S afety Awareness, Balance, Social Cognition, Transfers Control, Sphincter Control, Self-Care, Communic ation, and Endurance.Currently, she has deficits of Locomotion, Balance, Safety Awareness, Transfers Control, Sphincter Control, Self-Care, Communication, Endurance, and Social Cognition.Pt. is now refe rred to [facility] for acute in-patient rehabilitation in order to maximize pa tient's functional independence in activities of daily living, strength, ROM, and mobility.- Rehab Go al Patient has realistic goal of being discharged at assistance level 6-Radha to reside at Home with Att endant. Coco Melton is a 84 year old female with significant past medical history of hypertension, coronary artyery disease, status post PTCA and ICD, chronic kidney disease. She lives at [facility] with assistance. Its a single story apartment with no stairs to get into apartment . She came into the hospital feeling weak. Patient in the last few days starting over the weekend, started to be confused, more sleepy with shortness of breath and increased leg swelling. For that reason, patient was brought to hospital. Patient has been admitted at [facility] and tends to have started on diuresis. She is now medically stable but in need of 24 hour nursing, doctor supervision and oversight while reasonably expected to participate in 3 hours of therapy a day/15 hours per week and receive care with intensive interdisciplinary approach.She developed worsening CO2 retention , CHF exacerbation and respiratory distress. She was discharged to the acute care floor with CHF exac erbation and acute respiratory distress.HOSPITAL COURSE: DIET - LIQUID TEXTURE: On 05/31/2019 Pt was upgraded to Regular Diet - Liquid Texture. DIET - SOLID TEXTURE: On 05/31/2019 Pt was upgraded to Regular Diet - Solid Texture. DIET TYPE: On 05/31/2019 Pt was upgraded to Regular Diet Type. TUBE FEED: On 05/31/2019 Pt was changed to N/A Tube Feed. DISCHARGE PHYSICAL EXAM - Gen Alert and awake Lying in bed No apparent distress Oriented to: person, time, and place - Skin No skin breakdown. Normacephalic - Eyes No abnormalities - ENMT No abnormalities - Neck No abnormalities - CVS RRR - Chest No abnormalities - Resp Clear to auscultation - Abd Soft - GI Non distended Deferred - No abnormalities - Ext Mild bilateral lower extremity edema. - MSK 4/5 weakness in both lower extremities. - Neuro No focal deficits - Psych No abnormalities FUNCTIONAL STATUS: - Self-Care A. Eating 5-sup B. Grooming 4-Maria Isabel C. Bathing 5-sup D. Dressing - Upper 4-Maria Isabel E. Dressing - Lower 2-maxA F. Toileting 4-Maria Isabel - Sphincter Control G. Bladder control 6-Radha H. Bowel control 6-Radha - Transfers Control I. Bed/Chair/Wheelchair 3-modA J. Toilet 3-modA K. Tub/Shower 2-maxA - Locomotion L. Walk/Wheelchair (B) 3-modA M. Stairs 0-ADNO - Communication N. Comprehension (B) 5-sup O. Expression (B) 5-sup - Social Cognition P. Social Interaction 6-Radha Q. Problem Solving 4-Maria Isabel R. Memory 4-Maria Isabel - Endurance Poor - Balance Fair - Safety Awareness Good QI SCORES: - Self-Care A. Eating 06-Independent B. Oral hygiene 03-Partial/moderate assistance C. Toileting hygiene 03-Partial/moderate assistance E. Shower/bathe self 03-Partial/moderate assistance F. Upper body dressing 03-Partial/moderate assistance G. Lower body dressing 02-Substantial/maximal assistance H. Putting on/taking off footwear 03-Partial/moderate assistance - Mobility J. Walk 50 feet with two turns 88-Not attempted due to medical condition or safety concerns B. Sit to lying 03-Partial/moderate assistance C. Lying to sitting on side of bed 04-Supervision or touching assistance D. Sit to stand 03-Partial/moderate assistance E. Chair/udt-by-kjsjg transfer 03-Partial/moderate assistance F. Toilet transfer 03-Partial/moderate assistance G. Car transfer 88-Not attempted due to medical condition or safety concerns I. Walk 10 feet 03-Partial/moderate assistance K. Walk 150 feet 88-Not attempted due to medical condition or safety concerns L. Walking 10 feet on uneven surfaces 88-Not attempted due to medical condition or safety concerns M. 1 step (curb) 88-Not attempted due to medical condition or safety concerns N. 4 steps 03-Partial/moderate assistance O. 12 steps 03-Partial/moderate assistance P. Picking up object 06-Independent R. Wheel 50 feet with two turns 88-Not attempted due to medical condition or safety concerns S. Wheel 150 feet 88-Not attempted due to medical condition or safety concerns - Bladder and Bowel Bladder continence 0-Always continent Bowel continence - Endurance Poor - Balance Poor - Safety Awareness Fair DISCHARGE INSTRUCTIONS: - N/A Xarelto 15 mg daily. DISCHARGE PLAN, FOLLOW UP CARE PROVISIONS: - Estimated Length of Stay (days) 10. - Consensus on plan Discharge plan has been discussed with primary caregiver. Patient/Family is in agreement with the irasema n. Primary caregiver is in agreement with the plan. - Patient/Family Goals Return home with assistance. - Planned Living Setting Upon Discharge Home, to live with Attendant. Transitional Living. Primary caregiver: Attendant. 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
== END 2019-06-06 19:45 | disposition short-term general hospital (02) | DRG 291 ==
LOC: 5TH 13:30
PROVIDERS: ADMIT Psychiatry & Neurology Neurology with Special Qualifications in Child Neurology; ATTEND Psychiatry & Neurology Neurology with Special Qualifications in Child Neurology
DX: I13.0 Hypertensive heart and chronic kidney disease with heart failure and stage 1 through stage 4 chronic kidney disease, or unspecified chronic kidney disease (principal); J96.21 Acute and chronic respiratory failure with hypoxia; J96.22 Acute and chronic respiratory failure with hypercapnia; I48.20 Chronic atrial fibrillation, unspecified; I50.9 Heart failure, unspecified; N18.3 Chronic kidney disease, stage 3 (moderate); E03.9 Hypothyroidism, unspecified; R53.81 Other malaise; G62.9 Polyneuropathy, unspecified; F41.9 Anxiety disorder, unspecified; I25.2 Old myocardial infarction; Z91.19 Patient's noncompliance with other medical treatment and regimen
CPT/HCPCS: 36415; 71045; 80048; 82040; 82805; 83735; 84134; 85025; 92523; 97110; 97116; 97127; 97161; 97167; 97530; 97542

== ENCOUNTER 2019-06-13 10:46 | Inpatient (IN) | payer OTHER ==
--- NOTE | 2019-06-13 13:44 | R.PREADM ---
SCREENING DATE AND TIME 06/13/2019 11:15 (MRI MANAGER) ANTICIPATED REHAB ADMISSION DATE 06/15/2019 REFERRING FACILITY [facility] REFERRAL DATE AND TIME 06/13/2019 11:15 (MRI MANAGER) REFERRAL OFFICE PHONE [phone] REFERRAL ROOM# [id number] ACUTE ADMIT DATE 06/06/2019 Previous Rehabilitation(s): No. 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 VIET LAFLEUR REHAB FACILITY [facility] CLINICAL LIAISON Rebeca Nolasco PHYSICIAN REVIEWER Dr. Rambo De La Rosa M.D. MR# [id number] NAME COCO MELTON ADDRESS [address] [facility] [id number] DATE OF 1935 AGE 84 SSN# [id number] GENDER female MARITAL STATUS RACE white ADMIT FROM 02 - [facility] PRE-HOSPITAL LIVING SETTING 01 - Home (private home/apt. board/care, assisted living, long term, transitional living) HOME TYPE AND DETAILS Type of home: Assisted living # of steps within the residence: 0 # of levels in the residence: 1 # of steps to enter the residence: 0 PRE-HOSPITAL LIVING WITH Attendant FAMILY SUPPORT Yes PRIMARY FAMILY CONTACT NAME Padmaja Ramirez PRIMARY FAMILY CONTACT PHONE PHONE PRIMARY FAMILY CONTACT ON ADM.? no IS PRIMARY FAMILY CONTACT AUTH. REP.? no 1ST EMERGENCY CONTACT Padmaja Ramirez 1ST CONTACT PHONE PHONE 1ST CONTACT ON ADM. no IS 1ST CONTACT AUTH. REP.? no PHONE 2ND CONTACT ON ADM.? no PATIENT EMPLOYMENT STATUS Retired (for age) PATIENT EMPLOYER No Employer PAYOR INFORMATION: 1ST PAYOR NAME MEDICARE 1ST PAYOR PHONE [phone] 1ST PAYOR INJURY/ILLNESS DUE TO ACCIDENT? No ANOTHER REPUBLICAN RESPONSIBLE? No PRIMARY REHAB/ACUTE DIAGNOSIS: CHF Exacerbation ONSET DATE 06/06/2019 REHAB IMPAIRMENT CATEGORY (RAFAEL): 14 Cardiac does NOT meet 60% rule PRIMARY DIAGNOSIS-RELATED SURGERIES: No surgeries related to the primary diagnosis were performed. 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 is a 84 yo Right-handed white female. On 06/06/2019 she was admitted to [facility] with diagnosis CHF Exacerbation. Her impairment category is Cardiac 09 - Cardiac Disorders (09). Pre-morbidly, Pt. was independent/mod-I in Locomotion, Safety Awareness, Balance, Social Cognition, T ransfers Control, Sphincter Control, Self-Care, Communication, and Endurance; and she had good Locomo tion, Safety Awareness, Balance, Social Cognition, Transfers Control, Sphincter Control, Self-Care, C ommunication, and Endurance. Currently, she has deficits of Locomotion, Safety Awareness, Balance, Social Cognition, Transfers Con trol, Self-Care, Communication, and Endurance. Pt. is now referred to [facility] for acute in-patient rehabilitation in order to maximize patient's functional independence in activities of daily living, strength, ROM, and mobi lity. Patient has realistic goal of being discharged at assistance level 6-Radha to reside at Home with Att endant. Coco Melton is an 84 year old female that lives in an assisted living. She was independent with ADLs and IADLs and ambulatory with RW. On 06/06/2019, patient was transferred back to acute floor due to severe hypercapnic and altered mental status and was admitted to [facility] and treated. She is now medically sta ble but in need of 24-hour nursing, doctor supervision and oversite while receiving participate in 3hours of therapy a day/15 hours per week and receive care with an intensive interdisciplinary approach. Her repeat ABG pH 7.48, pCO2 42.7, pO2 74.8, HCO3 31.9, FIO2 21. She is doing better with cognition s brook her oxygen was removed and she is ventilating better. PAST MEDICAL HISTORY Atrial Fibrillation Autonomic neuropathy in diseases classified elsewhere (G99.0) CAD Depression Hypertension Hypothyroidism TX NSTEMI RLS PAST SURGICAL HISTORY: APPENDECTOMY CHOLECYSTECTOMY Hysterectomy Fractured Femur Heart Stent MEDICATION ALLERGIES: Codeine Opioids ENVIRONMENTAL ALLERGIES: None Known - Substance Allergies None Known - Other Allergies None Known CODE STATUS: Full code WEIGHT/HEIGHT/BMI: WEIGHT 264 lbs HEIGHT 5' 8" BMI 40.1 DIET: - Diet Type Regular - Diet - Solid Texture Mechanical Soft - Diet - Liquid Texture Regular - Tube Feed N/A REVIEW OF SYSTEMS: - Gen Alert and awake Lying in bed No apparent distress Oriented to: person, time, and place - Vital Signs Temperature: 98 F SBP/DBP: 132/61 Pulse: 70 Resp: 16 Vital signs stable, afebrile - CVS RRR VITAL SIGNS Temperature: 98 F SBP/DBP: 132/61 Pulse: 70 Resp: 16 Vital signs stable, afebrile MEDICATIONS/TREATMENT: Other- See attached MAR (Medication Administration Record). CURRENT SPHINCTER CONTROL: Pre-hospital bladder status: unspecified # of bladder accidents in the last 7 days prior to screenin Pre-hospital bowel status: unspecified # of bowel accidents in the last 7 days prior to screenin Last Bowel Movement Date: 06/13/2019 CURRENT LOCOMOTION STATUS: distance traveled in wheelchair 70 feet distance walked 70 feet DETAILED CURRENT FUNCTIONAL STATUS: - Bladder accident frequency: Ind - No accidents in the past 7 days - Bowel accident frequency: Ind - No accidents in the past 7 days - Walking score based on distance walked: 0(N/A) score based on distance walked: 2(5149ft) - Wheelchair score based on distance traveled: 0(N/A) score based on distance traveled: 2(5149ft) QI SCORES: - Self-Care A. Eating 05-Setup or clean-up assistance B. Oral hygiene 05-Setup or clean-up assistance C. Toileting hygiene 02-Substantial/maximal assistance E. Shower/bathe self 03-Partial/moderate assistance F. Upper body dressing 03-Partial/moderate assistance G. Lower body dressing 02-Substantial/maximal assistance H. Putting on/taking off footwear 02-Substantial/maximal assistance - Mobility C. Lying to sitting on side of bed 03-Partial/moderate assistance B. Sit to lying 03-Partial/moderate assistance D. Sit to stand 03-Partial/moderate assistance E. Chair/myz-eo-oviqe transfer 03-Partial/moderate assistance F. Toilet transfer 03-Partial/moderate assistance G. Car transfer 10-Not attempted due to environmental limitations I. Walk 10 feet 04-Supervision or touching assistance J. Walk 50 feet with two turns 88-Not attempted due to medical condition or safety concerns K. Walk 150 feet 88-Not attempted due to medical condition or safety concerns L. Walking 10 feet on uneven surfaces 88-Not attempted due to medical condition or safety concerns M. 1 step (curb) 88-Not attempted due to medical condition or safety concerns N. 4 steps 88-Not attempted due to medical condition or safety concerns O. 12 steps 88-Not attempted due to medical condition or safety concerns P. Picking up object 88-Not attempted due to medical condition or safety concerns R. Wheel 50 feet with two turns 88-Not attempted due to medical condition or safety concerns S. Wheel 150 feet 02-Substantial/maximal assistance - Bladder and Bowel Bladder continence 3-Incontinent daily Bowel continence 0-Always continent - Endurance Poor - Balance Fair - Safety Awareness Fair CURRENT FUNC. DEFICITS: Self-Care, Mobility, Endurance, Balance, and Safety Awareness CURRENT / PREVIOUS ASSISTIVE DEVICES: 3-in-1 Commode BSC Dentures Glasses Hospital Bed Oxygen Raised Toilet Rolling Walker Shower Chair Tub Bench Wheelchair CURRENT USE ASSISTIVE DEVICES: CPAP SCDs TEDs HISTORY OF FALLS. HAS THE PATIENT HAD TWO OR MORE FALLS IN THE PAST YEAR OR ANY FALL WITH INJURY IN T HE PAST YEAR?: No PRIOR SURGERY. DID THE PATIENT HAVE MAJOR SURGERY DURING THE 100 DAYS PRIOR TO ADMISSION?: No THERAPY NOTES FROM ACUTE CARE: Attached. SPECIAL NEEDS: - Safety Concerns Skin breakdown precautions needed due to skin breakdown risk PATIENT NEEDS ACTIVE AND ONGOING THERAPEUTIC INTERVENTION OF MULTIPLE THERAPY DISCIPLINES, INCLUDING: - Dietary and Nutrition Adequate Nutrition. Nutritional Education. Nutritional Supplements. PATIENT NEEDS CLOSE MEDICAL SUPERVISION BY A REHABILITATION PHYSICIAN FOR: Coordination of Treatment Team Medical and Co-Morbidity Management PATIENT REQUIRES 24X7 REHAB NURSING FOR MEDICAL AND FUNCTIONAL MGT. OF THE FOLLOWING DEFICITS: Disease Management Medication Management Patient/Family Education Providing Safe Environment PATIENT REQUIRES INTENSIVE, COORDINATED INTERDISCIPLINARY APPROACH TO REHAB: Arranging Home Equipment/Services Discharge Planning Family Intervention/Training Thermal Molder/Case Management PATIENT REHAB POTENTIAL: Juaquin MELTON is able and expected to receive 3 hours of individualized therapy daily on at least 5 of e very 7 days Juaquin MELTON's prognosis for significant practical improvement within a reasonable period of time appea rs Good Expected level of measurable improvement will be of a practical value to Juaquin MELTON's functional capa city or adaptations to impairments Has a viable Discharge Plan Medically appropriate; condition is sufficiently stable to participate in intensive rehab program DISCHARGE PLAN: - Estimated Length of Stay (days) 10. - Consensus on plan Discharge plan has been discussed with primary caregiver. Patient/Family is in agreement with the irasema n. Primary caregiver is in agreement with the plan. - Patient/Family Goals Return home with assistance. - Planned Living Setting Upon Discharge Home, to live with Attendant. Transitional Living. Primary caregiver: Attendant. RECOMMENDED CARE LEVEL: IRF RECOMMENDATION DETAILS: Recommended Admission to Comprehensive Rehabilitation Program to Increase Functional Craig SCREENER'S COMPLETENESS CONFIRMATION: - Screening Confirmation The patient data collection on this preadmission screening form is finished PHYSICIANS REVIEW AND ADMISSION DETERMINATION Admit - Based on my review of the Pre-Admission Screening results, in my medical judgment and experie nce, I concur with the findings and recommend admission to [facility], as this patient requires an IRF level of care. SIGNATURE PANEL: Clinical Liaison - [electronically] signed by Rebeca Nolasco on 06/13/2019 at 11:52 (MRI MANAGER) Physician Reviewer - [electronically] signed by Dr. Rambo De La Rosa M.D. on 06/13/2019 at 13:44 (MRI MANAGER )
[2019-06-13] MEDS ORDERED: ALBUTEROL 2.5 MG/3 ML NEB SOL NEB PRN (15:42)
[2019-06-13] MEDS: ACETAMINOPHEN 500 MG TAB PO PRN ×2 (16:53→20:58)
[2019-06-13] MEDS: FUROSEMIDE 40 MG TABLET PO SCH (16:53)
[2019-06-13] MEDS: RIVAROXABAN 15 MG TABLET PO SCH (16:53)
[2019-06-13] MEDS: METOPROLOL TAR 25 MG TAB PO SCH (16:59)
[2019-06-13] MEDS: CLOTRIMAZOLE 1% CREAM 15 GM TOP SCH (19:14)
[2019-06-13] MEDS: LIDOCAINE 4% PATCH TOP SCH (19:15)
[2019-06-13] MEDS: LIDOCAINE VISCOUS 2% SOLN 15 ML UDC MM SCH (19:17)
[2019-06-13] MEDS: MELATONIN 3 MG TABLET PO PRN (19:17)
[2019-06-13] MEDS: CRANBERRY FRUIT EXTRACT 200 MG CAP PO SCH (19:17)
[2019-06-13] MEDS: ARFORMOTEROL TARTRATE 15 MCG/2 ML VIAL.NEB NEB SCH (21:00)
[2019-06-14] MEDS: ACETAMINOPHEN 500 MG TAB PO PRN ×5 (00:56→21:42)
[2019-06-14] MEDS: METOPROLOL TAR 25 MG TAB PO SCH ×2 (05:18→17:35)
[2019-06-14] MEDS: LEVOTHYROXINE SOD 0.075 MG TAB PO SCH (06:36)
[2019-06-14] MEDS: PANTOPRAZOLE 40MG TABLET PO SCH (06:36)
[2019-06-14 07:05] LABS: Absolute Lymphocytes (CBC) 1.1 K/uL (0.7-4.9); Basophils % 1.2 % (0-1.3); Hematocrit 30.5 % (36.0-45.0); Lymphocytes % 14.5 % (15.3-44.8); MPV 8.5 fL (7.6-11.3); RBC Red Blood Cell Count 3.22 M/uL (3.86-4.86)
[2019-06-14 07:12] LABS: Albumin 2.8 g/dL (3.4-5.0); Magnesium 1.9 mg/dL (1.8-2.4); Potassium 3.4 mmol/L (3.5-5.1); Prealbumin 15.6 mg/dL (20-40)
[2019-06-14] MEDS: ARFORMOTEROL TARTRATE 15 MCG/2 ML VIAL.NEB NEB SCH ×2 (07:29→20:30)
[2019-06-14] MEDS: acetaZOLAMIDE 250 MG TAB PO SCH (08:51)
[2019-06-14] MEDS: PRAMIPEXOLE 1 MG TAB PO SCH (08:51)
[2019-06-14] MEDS: CLOPIDOGREL 75 MG TABLET PO SCH (08:52)
[2019-06-14] MEDS: CRANBERRY FRUIT EXTRACT 200 MG CAP PO SCH ×2 (08:52→19:13)
[2019-06-14] MEDS: FE SULF/FA/VIT B COMP & C TAB PO SCH (08:52)
[2019-06-14] MEDS: FUROSEMIDE 40 MG TABLET PO SCH ×2 (08:52→17:36)
[2019-06-14] MEDS: LIDOCAINE VISCOUS 2% SOLN 15 ML UDC MM SCH ×3 (09:11→20:00)
[2019-06-14] MEDS: LIDOCAINE 4% PATCH TOP SCH (09:15)
[2019-06-14] MEDS ORDERED: TRAZODONE 50 MG TABLET PO PRN (09:27)
--- NOTE | 2019-06-14 09:42 | P.RH.PN ---
Estimated Length of Stay: 14 Expected Discharge Date: 06/26/19 Discharge Disposition Plan: Home Family Support: Yes [facility] Goal: Mobility, Transfers, Self Care Vital Signs: Last Vital Signs Temp 98 F 06/14/19 07:43 Pulse 70 06/14/19 08:52 Resp 16 06/14/19 07:43 BP 108/50 L 06/14/19 08:52 Pulse Ox 96 06/14/19 07:43 Laboratory: Laboratory Last Values WBC 7.8 K/uL (4.3-10.9) 06/14/19 06:07 RBC 3.22 M/uL (3.86-4.86) L 06/14/19 06:07 Hgb 9.7 g/dL (12.0-15.0) L 06/14/19 06:07 Hct 30.5 % (36.0-45.0) L 06/14/19 06:07 MCV 94.7 fL (80-100) 06/14/19 06:07 MCH 30.0 pg (27.0-35.0) 06/14/19 06:07 MCHC 31.7 g/dL (32.0-36.0) L 06/14/19 06:07 RDW 19.1 % (12.1-15.2) H 06/14/19 06:07 Plt Count 270 K/uL (152-406) 06/14/19 06:07 MPV 8.5 fL (7.6-11.3) 06/14/19 06:07 Neutrophils % 74.4 % (41.7-73.7) H 06/14/19 06:07 Lymphocytes % 14.5 % (15.3-44.8) L 06/14/19 06:07 Monocytes % 7.3 % (3.3-12.3) 06/14/19 06:07 Eosinophils % 2.6 % (0-4.4) 06/14/19 06:07 Basophils % 1.2 % (0-1.3) 06/14/19 06:07 Absolute Neutrophils 5.8 K/uL (1.8-8.0) 06/14/19 06:07 Absolute Lymphocytes 1.1 K/uL (0.7-4.9) 06/14/19 06:07 Absolute Monocytes 0.6 K/uL (0.1-1.3) 06/14/19 06:07 Absolute Eosinophils 0.2 K/uL (0-0.5) 06/14/19 06:07 Absolute Basophils 0.1 K/uL (0-0.5) 06/14/19 06:07 Sodium 142 mmol/L (136-145) 06/14/19 06:17 Potassium 3.4 mmol/L (3.5-5.1) L 06/14/19 06:17 Chloride 107 mmol/L (98-107) 06/14/19 06:17 Carbon Dioxide 30 mmol/L (21-32) 06/14/19 06:17 BUN 14 mg/dL (7-18) 06/14/19 06:17 Creatinine 1.33 mg/dL (0.55-1.3) H 06/14/19 06:17 Estimated GFR 38 mL/min (=/>90) L 06/14/19 06:17 Glucose 135 mg/dL (74-106) H 06/14/19 06:17 Calcium 8.9 mg/dL (8.5-10.1) 06/14/19 06:17 Magnesium 1.9 mg/dL (1.8-2.4) 06/14/19 06:17 Albumin 2.8 g/dL (3.4-5.0) L 06/14/19 06:17 Prealbumin 15.6 mg/dL (20-40) L 06/14/19 06:17 Weight: 239 lb Physician Update: Labs reviewed and are stable. She did well with physical and occupational therapy. She did not sleep well last night on just melatonin. Will add Trazadone 25 mg at night. Summary: Patient's care plan and residential goals have been reviewed and revised as necessary. Please see the Rehabilitation Signature page for all necessary signatures.
[2019-06-14] MEDS: CLOTRIMAZOLE 1% CREAM 15 GM TOP SCH ×2 (10:13→20:00)
--- NOTE | 2019-06-14 14:58 | R.HP ---
FACILITY: [facility] ENCOUNTER DATE AND TIME: 06/14/2019 14:55 (TRANSPORTATION TECHNICIAN) MR#: [id number] NAME COCO MELTON ADDRESS: [address] [place] [address]: [place]IP [id number] PHONE: DATE OF : 1935 AGE: 84 SSN# [id number] GENDER: Female DEXTERITY Right-handed MARITAL STATUS RACE White PRE-HOSPITAL LIVING SETTING 01 - Home (private home/apt. board/care, assisted living, skilled nursing, transitional living) PRE-HOSPITAL LIVING WITH Attendant ENCOUNTER PHYSICIAN: Dr. Rambo De La Rosa M.D. REFERRING DOCTOR: DR. VIET LAFLEUR DATE OF ADMISSION: 06/13/2019 15:01 (TRANSPORTATION TECHNICIAN) REFERRING FACILITY [facility] HOME TYPE AND DETAILS: Type of home: Assisted living # of steps within the residence: 0 # of levels in the residence: 1 # of steps to enter the residence: 0 ADMISSION DIAGNOSIS: CHF Exacerbation ONSET DATE: 06/06/2019 PRIMARY DIAGNOSIS-RELATED SURGERIES: No surgeries related to the primary diagnosis were performed. 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 is a 84 yo Right-handed white female. On 06/06/2019 she was admitted to [facility] with diagnosis CHF Exacerbation. Her impairment category is Cardiac 09 - Cardiac Disorders (09). Pre-morbidly, Pt. was independent/mod-I in Locomotion, Safety Awareness, Balance, Social Cognition, T ransfers Control, Sphincter Control, Self-Care, Communication, and Endurance; and she had good Locomo tion, Safety Awareness, Balance, Social Cognition, Transfers Control, Sphincter Control, Self-Care, C ommunication, and Endurance. Currently, she has deficits of Locomotion, Safety Awareness, Balance, Social Cognition, Transfers Con trol, Self-Care, Communication, and Endurance. Pt. is now referred to [facility] for acute in-patient rehabilitation in order to maximize patient's functional independence in activities of daily living, strength, ROM, and mobi lity. Patient has realistic goal of being discharged at assistance level 6-Radha to reside at Home with Att endant. Coco Melton is an 84 year old female that lives in an assisted living. She was independent with ADLs and IADLs and ambulatory with RW. On 06/06/2019, patient was transferred back to acute floor due to severe hypercapnic and altered mental status and was admitted to [facility] and treated. She is now medically sta ble but in need of 24-hour nursing, doctor supervision and oversite while receiving participate in 3hours of therapy a day/15 hours per week and receive care with an intensive interdisciplinary approach. Her repeat ABG pH 7.48, pCO2 42.7, pO2 74.8, HCO3 31.9, FIO2 21. She is doing better with cognition s brook her oxygen was removed and she is ventilating better. 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 REVIEW OF SYSTEMS: - Gen No Chills No Fatigue No Fever - Eyes No Double Vision No itchiness - ENMT No Difficulty Swallowing - CVS No Chest Discomfort No Chest Pain No Fatigue No Weight Gain - Resp No Cough No Shortness of Breath - GI Continent No Abdominal Pain No Constipation No Diarrhea - Continent No Kidney Pain No Painful Urination No Urinary Urgency - MSK No Joint Pain No Muscle Cramps No Stiffness - Skin No Itching No Rash No Suspicious Lesions - Neuro No Coordination Difficulty No Difficulty with Concentration No Memory Loss No Seizures No Weakness - Psych No Anxiety No Depression No HIV Exposure No Persistent Infections No Seasonal Allergies - Endo No Cold/Heat Intolerance No Excessive Hunger No Excessive Thirst No Excessive Urination PHYSICAL EXAM - Gen Alert and awake Lying in bed No apparent distress Oriented to: person, time, and place - Skin No skin breakdown. Normacephalic - Eyes No abnormalities - ENMT No abnormalities - Neck No abnormalities - CVS RRR - Chest No abnormalities - Resp No wheezing - Abd Soft - GI Non distended Deferred - No abnormalities - Ext Mild bilateral lower extremity edema. - MSK 4+/5 weakness in both lower extremities. - Neuro No focal deficits - Psych No abnormalities VITAL SIGNS Temperature: 98 F SBP/DBP: 108/50 Pulse: 70 Resp: 16 NURSING: - Shower allowing shower ACTIVITIES OOB only with supervision QI SCORES: - Self-Care A. Eating 05-Setup or clean-up assistance B. Oral hygiene 05-Setup or clean-up assistance C. Toileting hygiene 02-Substantial/maximal assistance E. Shower/bathe self 03-Partial/moderate assistance F. Upper body dressing 03-Partial/moderate assistance G. Lower body dressing 02-Substantial/maximal assistance H. Putting on/taking off footwear 02-Substantial/maximal assistance - Mobility C. Lying to sitting on side of bed 03-Partial/moderate assistance B. Sit to lying 03-Partial/moderate assistance D. Sit to stand 03-Partial/moderate assistance E. Chair/obo-jt-ffzoi transfer 03-Partial/moderate assistance F. Toilet transfer 03-Partial/moderate assistance G. Car transfer 10-Not attempted due to environmental limitations I. Walk 10 feet 04-Supervision or touching assistance J. Walk 50 feet with two turns 88-Not attempted due to medical condition or safety concerns K. Walk 150 feet 88-Not attempted due to medical condition or safety concerns L. Walking 10 feet on uneven surfaces 88-Not attempted due to medical condition or safety concerns M. 1 step (curb) 88-Not attempted due to medical condition or safety concerns N. 4 steps 88-Not attempted due to medical condition or safety concerns O. 12 steps 88-Not attempted due to medical condition or safety concerns P. Picking up object 88-Not attempted due to medical condition or safety concerns R. Wheel 50 feet with two turns 88-Not attempted due to medical condition or safety concerns S. Wheel 150 feet 02-Substantial/maximal assistance - Bladder and Bowel Bladder continence 3-Incontinent daily Bowel continence 0-Always continent - Endurance Poor - Balance Fair - Safety Awareness Fair CURRENT FUNC. DEFICITS: Self-Care, Mobility, Endurance, Balance, and Safety Awareness MEDICATIONS: - Other See attached MAR (Medication Administration Record) ASSESSMENT: Pt. is a 84 yo Right-handed white female.On 06/06/2019 she was admitted to [facility] with diagnosis CHF Exacerbation.Her impairment category is Cardiac 09 - Cardiac Disorders (09 ).Pre-morbidly, Pt. was independent/mod-I in Locomotion, Safety Awareness, Balance, Social Cognition, Transfers Control, Sphincter Control, Self-Care, Communication, and Endurance; and she had good Velarde motion, Safety Awareness, Balance, Social Cognition, Transfers Control, Sphincter Control, Self-Care, Communication, and Endurance.Currently, she has deficits of Locomotion, Safety Awareness, Balance, S ocial Cognition, Transfers Control, Self-Care, Communication, and Endurance.Pt. is now referred to [facility] for acute in-patient rehabilitation in order to maximize patient's fu nctional independence in activities of daily living, strength, ROM, and mobility.- Rehab Goal Patient has realistic goal of being discharged at assistance level 6-Radha to reside at Home with Att endant. Coco Melton is an 84 year old female that lives in an assisted living. She was independent with ADLs and IADLs and ambulatory with RW. On 06/06/2019, patient was transferred back to acute floor due to severe hypercapnic and altered mental status and was admitted to [facility] and treated. She is now medically sta ble but in need of 24-hour nursing, doctor supervision and oversite while receiving participate in 3hours of therapy a day/15 hours per week and receive care with an intensive interdisciplinary approach.Her repeat ABG pH 7.48, pCO2 42.7, pO2 74.8, HCO3 31.9, FIO2 21. She is doing better with cognition since her oxygen was removed and she is ventilating better.ASA AB PLAN: - Physical Therapy Gait dysfunction - to improve, our physical therapists will perform initial evaluation of pt's status upon admission and devise an individualized program for Gait Training, and Wheel Chair mobility Inability to transfer - to improve, our physical therapists will perform initial evaluation of pt's s tatus upon admission and devise an individualized program for Bed mobility Need for home safety evaluation - to improve, our physical therapists will perform initial evaluation of pt's status upon admission and devise an individualized program for Home Evaluation Need in caregiver upon discharge - to improve, our physical therapists will perform initial evaluatio n of pt's status upon admission and devise an individualized program for Caregiver Training New precaution - to improve, our physical therapists will perform initial evaluation of pt's status u johanna admission and devise an individualized program for Patient precaution education Edema - to improve, our physical therapists will perform initial evaluation of pt's status upon admi ssion and devise an individualized program for Elevation Training, and Lymphedema Therapy Poor balance - to improve, our physical therapists will perform initial evaluation of pt's status upo n admission and devise an individualized program for Balance Training Poor endurance - to improve, our physical therapists will perform initial evaluation of pt's status u johanna admission and devise an individualized program for Endurance Training Weakness - to improve, our physical therapists will perform initial evaluation of pt's status upon ad mission and devise an individualized program for Aquatic Therapy, Neuromuscular Reeducation, and Stre ngthening Achieving independence - to improve, our physical therapists will perform initial evaluation of pt's status upon admission and devise an individualized program for Community Reintegration Activities - Occupational Therapy ADL deficits - to improve, our occupation therapists will perform initial evaluation of pt's status u johanna admission and devise an individualized program for Bathing, Bed mobility, Community Reintegration , Cooking, Dressing, Eating, Fine Motor Skills, Grooming, Homemaking, Kitchen Mobility, Laundry, Enma ent Education, Safety Awareness, Splinting - Positioning, Transfers(Toilet, Tub, Shower), and Wheel C hair Management Cognitive deficits - to improve, our occupation therapists will perform initial evaluation of pt's st atus upon admission and devise an individualized program for Cognition - orientation Need for interior plant caretaker - to improve, our occupation therapists will perform initial evaluation of pt's s tatus upon admission and devise an individualized program for Caregiver Training Weakness - to improve, our occupation therapists will perform initial evaluation of pt's status upon admission and devise an individualized program for Aquatic Therapy, Balance, Endurance, UE ROM, and U E strengthening MEDICAL PLAN: - Diet Type Start Regular - Diet - Liquid Texture Start Regular - Tube Feed Start N/A - Other See attached MAR (Medication Administration Record) - Diet - Solid Texture Start Regular Start Mechanical Soft - Shower shower DISCHARGE PLAN: - Estimated Length of Stay (days) 10. - Consensus on plan Discharge plan has been discussed with primary caregiver. Patient/Family is in agreement with the irasema n. Primary caregiver is in agreement with the plan. - Patient/Family Goals Return home with assistance. - Planned Living Setting Upon Discharge Home, to live with Attendant. Transitional Living. Primary caregiver: Attendant. SIGNATURE PANEL: ([facility])
--- NOTE | 2019-06-14 15:01 | PAPE ---
PATIENT: [facility] MR# [id number] REFERRING DOCTOR DR. VIET LAFLEUR EVALUATION DATE AND TIME 06/14/2019 14:59 (CERTIFIED MEDICAL TRANSCRIPTIONIST) NAME LINH SANDS DATE OF 1935 AGE 84 PHONE SSN# [id number] GENDER female EVALUATING PHYSICIAN Dr. Rambo De La Rosa M.D. 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 PATIENT NEEDS CLOSE MEDICAL SUPERVISION BY A REHABILITATION PHYSICIAN FOR: Coordination of Treatment Team Medical and Co-Morbidity Management PATIENT REQUIRES 24X7 REHAB NURSING FOR MEDICAL AND FUNCTIONAL MGT. OF THE FOLLOWING DEFICITS: Disease Management Medication Management Patient/Family Education Providing Safe Environment PATIENT REQUIRES INTENSIVE, COORDINATED INTERDISCIPLINARY APPROACH TO REHAB: Arranging Home Equipment/Services Discharge Planning Family Intervention/Training Casino Runner/Case Management LIST OF IDENTIFIED AND POTENTIAL PROBLEMS: Alteration in leisure activities Bladder, Incontinence Blood Pressure, Hypertension/hypotension Issues Bowel, Incontinence Depression, Actual or Potential Infection, Actual or Potential Mobility Impaired Pain, Alteration in Comfort Self Care Deficit Skin Integrity, Actual or Potential Urinary Tract Infection (UTI), Actual or Potential RISK FOR COMPLICATIONS - Hypertension CVA. Hypotension. GA. TIA. - Atrial Fibrillation CVA. Heart failure. Limb embolus. - Depression Serotonin side effects. - CAD CHF. Cardiac Arrest. GA. Pain. INTERVENTIONS - Hypertension - Atrial Fibrillation Anticoagulation. Medications. VS. - Depression Medications. Psycho/social. Safety. - CAD 02 sats. Activity management. Medications. VS. PATIENT COULD BE AT RISK FOR COMPLICATIONS FROM ADVERSE MEDICAL CONDITIONS DUE TO HIS/HER COMORBIDITI ES AND THE RIGORS OF THE INTENSIVE REHABILLITATION PROGRAM. METHODS OR INTERVENTIONS TO AVOID COMPLIC ATIONS INCLUDE: - Infection Clinical staff to assess and manage the signs and symptoms of infection including fever, redness, war mth, etc. - Urinary Tract Infection - Falls Patient will be evaluated for Fall Precautions and will be placed on Fall Precautions as indicated pe r protocol. - Skin Breakdown Nursing will assess skin daily using assessment tool and will place on Skin Breakdown Precautions as indicated per protocol. - Pain Clinical staff may employ non-medication methods such as massage, distraction, decrease stimulus, etc . as needed. Clinical staff will assess patient's pain level every shift per protocol to assess and e nsure pain management effectiveness. Medications will be given and the pain level re-assessed. PRELIMINARY PLAN OF CARE: - Physical Therapy Patient needs Physical Therapy for a daily minimum of 1.5 hours at least 5 out of 7 days, to improve: Mobility, Strengthening, Transfers, Stretching, ROM, Endurance, Ability to manage stairs, Gait, and Balance. - Speech Therapy Patient needs Speech Therapy for a daily minimum of 0.5 hours at least 5 out of 7 days, to improve: S wallowing, Cognition, Language Skills, and Compensatory Strategies. - Rehabilitation Nursing Patient requires 24x7 Rehabilitation Nursing for: Pain Issues, Identifying and preventing risk factor s, Monitoring and reporting current medical conditions, Assisting with ambulation and transfer, Naomy ting with all ADL-s, Teaching patients about disease process and medications, Family teaching, Provid ing safe environment, Bowel and Bladder Issues, Skin Integrity, and Medication Management. Patient needs Casino Runner and/or Case Management for: Discharge Planning, Arranging Home Equipmen t or Services, and Family Interventions. - Dietary and Nutrition Services Patient needs Dietary and Nutrition Services for: Adequate Nutrition, Nutritional Supplements, and Nu tritional Education. - Occupational Therapy Patient needs Occupational Therapy for a daily minimum of 1.5 hours at least 5 out of 7 days, to impr ove Activities of Daily Living, including: Eating, Grooming, Bathing, Dressing, Toileting, Toilet Tra nsfers, Community Reintegration, Higher functional activities, Adaptive Equipment, Splinting, Househo ld Tasks, and Other activities as determined. QI SCORES: - Self-Care A. Eating 05-Setup or clean-up assistance B. Oral hygiene 05-Setup or clean-up assistance C. Toileting hygiene 02-Substantial/maximal assistance E. Shower/bathe self 03-Partial/moderate assistance F. Upper body dressing 03-Partial/moderate assistance G. Lower body dressing 02-Substantial/maximal assistance H. Putting on/taking off footwear 02-Substantial/maximal assistance - Mobility C. Lying to sitting on side of bed 03-Partial/moderate assistance B. Sit to lying 03-Partial/moderate assistance D. Sit to stand 03-Partial/moderate assistance E. Chair/mnk-it-hhyfy transfer 03-Partial/moderate assistance F. Toilet transfer 03-Partial/moderate assistance G. Car transfer 10-Not attempted due to environmental limitations I. Walk 10 feet 04-Supervision or touching assistance J. Walk 50 feet with two turns 88-Not attempted due to medical condition or safety concerns K. Walk 150 feet 88-Not attempted due to medical condition or safety concerns L. Walking 10 feet on uneven surfaces 88-Not attempted due to medical condition or safety concerns M. 1 step (curb) 88-Not attempted due to medical condition or safety concerns N. 4 steps 88-Not attempted due to medical condition or safety concerns O. 12 steps 88-Not attempted due to medical condition or safety concerns P. Picking up object 88-Not attempted due to medical condition or safety concerns R. Wheel 50 feet with two turns 88-Not attempted due to medical condition or safety concerns S. Wheel 150 feet 02-Substantial/maximal assistance - Bladder and Bowel Bladder continence 3-Incontinent daily Bowel continence 0-Always continent - Endurance Poor - Balance Fair - Safety Awareness Fair POTENTIAL FUNCTIONAL GOALS FOR PATIENT TO ACHIEVE BY DISCHARGE: - Safety Precaution Patient will remain free from falls or injury at time of discharge. - Bed Mobility Patient will perform bed mobility at 4-Maria Isabel level of assistance. - Transfers Patient will complete transfers from bed to chair at 4-Maria Isabel level of assistance. - Mobility Patient will ambulate 150 ft with 4-Mari aIsabel level of assistance with RW. PATIENT REHAB POTENTIAL Juaquin SANDS is able and expected to receive 3 hours of individualized therapy daily on at least 5 of e very 7 days Juaquin SANDS's prognosis for significant practical improvement within a reasonable period of time appea rs Good Expected level of measurable improvement will be of a practical value to Juaquin SANDS's functional capa city or adaptations to impairments Has a viable Discharge Plan Medically appropriate; condition is sufficiently stable to participate in intensive rehab program DISCHARGE PLAN: - Estimated Length of Stay (days) 10. - Consensus on plan Discharge plan has been discussed with primary caregiver. Patient/Family is in agreement with the irasema n. Primary caregiver is in agreement with the plan. - Patient/Family Goals Return home with assistance. - Planned Living Setting Upon Discharge Home, to live with Attendant. Transitional Living. Primary caregiver: Attendant. CONCLUSION ON REHABILITATION NECESSITY: I have evaluated patient's pre-admission functional status and, comparing it to the patient's post-ad mission functional status now, I conclude that the pre-admission assessment was accurate. Patient's c ondition on admission supports the medical necessity of admission to [facility]. It is safe to proceed with patient's therapy program. SIGNATURE PANEL: (CERTIFIED MEDICAL TRANSCRIPTIONIST)
--- NOTE | 2019-06-14 16:40 | FAST ---
ENCOUNTER DATE AND TIME: 06/14/2019 08:00 (SMOKING PIPES CLEANER) NAME LINH SANDS DATE OF : 1935 DATE OF ADMISSION: 06/13/2019 15:01 (SMOKING PIPES CLEANER) PHONE: AGE: 84 N# [id number] GENDER: Female ENCOUNTER PHYSICIAN: Dr. Rambo De La Rosa M.D. ADMISSION DIAGNOSIS: - Cardiac 09 - Cardiac Disorders () CHF Exacerbation. EATING: Not assessed/no information CODE: - ORAL HYGIENE: Not assessed/no information CODE: - TOILETING HYGIENE: TOILETING HYGIENE - STEP 1: Does the patient complete the activity by him/herself with no assistance (physical, verbal/nonverbal cueing, setup/clean-up)? No. TOILETING HYGIENE - STEP 2: Does the patient need only setup/clean-up assistance from one helper? No. TOILETING HYGIENE - STEP 3: Does the patient need only verbal/nonverbal cueing or touching/steadying/contact guard assistance fro m one helper? No. TOILETING HYGIENE - STEP 4: Does the patient need physical assistance - for example lifting or trunk support from one helper - wi th the helper providing less than half of the effort? No. TOILETING HYGIENE - STEP 5: Does the patient need physical assistance - for example lifting or trunk support from one helper - wi th the helper providing more than half of the effort? Yes. 1. [id number] ADMISSION PERFORMANCE: Substantial/maximal assistance CODE: 02 BATHING: SHOWER/BATHE SELF - STEP 1: Does the patient complete the activity by him/herself with no assistance (physical, verbal/nonverbal cueing, setup/clean-up)? No. SHOWER/BATHE SELF - STEP 2: Does the patient need only setup/clean-up assistance from one helper? No. SHOWER/BATHE SELF - STEP 3: Does the patient need only verbal/nonverbal cueing or touching/steadying/contact guard assistance fro m one helper? No. SHOWER/BATHE SELF - STEP 4: Does the patient need physical assistance - for example lifting or trunk support from one helper - wi th the helper providing less than half of the effort? Yes. 1. [id number] ADMISSION PERFORMANCE: Partial/moderate assistance CODE: 03 DRESSING - UPPER BODY: DRESSING - UPPER BODY - STEP 1: Does the patient complete the activity by him/herself with no assistance (physical, verbal/nonverbal cueing, setup/clean-up)? No. DRESSING - UPPER BODY - STEP 2: Does the patient need only setup/clean-up assistance from one helper? No. DRESSING - UPPER BODY - STEP 3: Does the patient need only verbal/nonverbal cueing or touching/steadying/contact guard assistance fro m one helper? Yes. 1. [id number] ADMISSION PERFORMANCE: Supervision or touching assistance CODE: 04 DRESSING - LOWER BODY: DRESSING - LOWER BODY - STEP 1: Does the patient complete the activity by him/herself with no assistance (physical, verbal/nonverbal cueing, setup/clean-up)? No. DRESSING - LOWER BODY - STEP 2: Does the patient need only setup/clean-up assistance from one helper? No. DRESSING - LOWER BODY - STEP 3: Does the patient need only verbal/nonverbal cueing or touching/steadying/contact guard assistance fro m one helper? No. DRESSING - LOWER BODY - STEP 4: Does the patient need physical assistance - for example lifting or trunk support from one helper - wi th the helper providing less than half of the effort? Yes. 1. [id number] ADMISSION PERFORMANCE: Partial/moderate assistance CODE: 03 PUTTING ON/TAKING OFF FOOTWEAR: FOOTWEAR - STEP 1: Does the patient complete the activity by him/herself with no assistance (physical, verbal/nonverbal cueing, setup/clean-up)? No. FOOTWEAR - STEP 2: Does the patient need only setup/clean-up assistance from one helper? No. FOOTWEAR - STEP 3: Does the patient need only verbal/nonverbal cueing or touching/steadying/contact guard assistance fro m one helper? No. FOOTWEAR - STEP 4: Does the patient need physical assistance - for example lifting or trunk support from one helper - wi th the helper providing less than half of the effort? No. FOOTWEAR - STEP 5: Does the patient need physical assistance - for example lifting or trunk support from one helper - wi th the helper providing more than half of the effort? Yes. 1. [id number] ADMISSION PERFORMANCE: Substantial/maximal assistance CODE: 02 DOES THE PATIENT USE A WHEELCHAIR/SCOOTER? CODE: EXPR INDICATE THE TYPE OF WHEELCHAIR/SCOOTER USED: CODE: EXPR INDICATE THE TYPE OF WHEELCHAIR/SCOOTER USED: CODE: EXPR BLADDER AND BOWEL: CODE: EXPR CODE: EXPR SIGNATURE PANEL: The following modified sections: 1. [id number] Admission Performance, 1. [id number] Admission Performance, 1. [id number] Admission Performance, 1. [id number] Admission Performance, 1. [id number] Admission Performance were [electronically] signed by Giselle Collazo OT on MonJun 14 2019 16:39:18 GMT-0600 ([facility] tra Standard Time)
[2019-06-14] MEDS: RIVAROXABAN 15 MG TABLET PO SCH (17:37)
[2019-06-14] MEDS: DOCUSATE NA/SENNA CONC 1 TAB PO PRN (19:12)
[2019-06-14] MEDS: MELATONIN 3 MG TABLET PO PRN (19:12)
--- NOTE | 2019-06-15 02:06 | FAST ---
SHIFT START DATE/TIME: 06/14/2019 19:00 (MANAGER TRAINEE) SHIFT END DATE/TIME: 06/15/2019 07:00 (MANAGER TRAINEE) NAME LINH SANDS DATE OF : 1935 DATE OF ADMISSION: 06/13/2019 15:01 (MANAGER TRAINEE) PHONE: AGE: 84 N# [id number] GENDER: Female ENCOUNTER PHYSICIAN: Dr. Rambo De La Rosa M.D. ADMISSION DIAGNOSIS: - Cardiac 09 - Cardiac Disorders () CHF Exacerbation. EATING: Not assessed/no information CODE: - ORAL HYGIENE: Not assessed/no information CODE: - TOILETING HYGIENE: TOILETING HYGIENE - STEP 1: Does the patient complete the activity by him/herself with no assistance (physical, verbal/nonverbal cueing, setup/clean-up)? No. TOILETING HYGIENE - STEP 2: Does the patient need only setup/clean-up assistance from one helper? No. TOILETING HYGIENE - STEP 3: Does the patient need only verbal/nonverbal cueing or touching/steadying/contact guard assistance fro m one helper? No. TOILETING HYGIENE - STEP 4: Does the patient need physical assistance - for example lifting or trunk support from one helper - wi th the helper providing less than half of the effort? Yes. 1. [id number] ADMISSION PERFORMANCE: Partial/moderate assistance CODE: 03 BATHING: Not assessed/no information CODE: - DRESSING - UPPER BODY: Not assessed/no information CODE: - DRESSING - LOWER BODY: Not assessed/no information CODE: - PUTTING ON/TAKING OFF FOOTWEAR: Not assessed/no information CODE: - ROLL LEFT AND RIGHT: ROLL LEFT AND RIGHT - STEP 1: Does the patient complete the activity by him/herself with no assistance (physical, verbal/nonverbal cueing, setup/clean-up)? No. ROLL LEFT AND RIGHT - STEP 2: Does the patient need only setup/clean-up assistance from one helper? No. ROLL LEFT AND RIGHT - STEP 3: Does the patient need only verbal/nonverbal cueing or touching/steadying/contact guard assistance fro m one helper? No. ROLL LEFT AND RIGHT - STEP 4: Does the patient need physical assistance - for example lifting or trunk support from one helper - wi th the helper providing less than half of the effort? Yes. 1. [id number] ADMISSION PERFORMANCE: Partial/moderate assistance CODE: 03 SIT TO LYING: SIT TO LYING - STEP 1: Does the patient complete the activity by him/herself with no assistance (physical, verbal/nonverbal cueing, setup/clean-up)? No. SIT TO LYING - STEP 2: Does the patient need only setup/clean-up assistance from one helper? No. SIT TO LYING - STEP 3: Does the patient need only verbal/nonverbal cueing or touching/steadying/contact guard assistance fro m one helper? No. SIT TO LYING - STEP 4: Does the patient need physical assistance - for example lifting or trunk support from one helper - wi th the helper providing less than half of the effort? Yes. 1. [id number] ADMISSION PERFORMANCE: Partial/moderate assistance CODE: 03 LYING TO SITTING: LYING TO SITTING ON SIDE OF BED - STEP 1: Does the patient complete the activity by him/herself with no assistance (physical, verbal/nonverbal cueing, setup/clean-up)? No. LYING TO SITTING ON SIDE OF BED - STEP 2: Does the patient need only setup/clean-up assistance from one helper? No. LYING TO SITTING ON SIDE OF BED - STEP 3: Does the patient need only verbal/nonverbal cueing or touching/steadying/contact guard assistance fro m one helper? No. LYING TO SITTING ON SIDE OF BED - STEP 4: Does the patient need physical assistance - for example lifting or trunk support from one helper - wi th the helper providing less than half of the effort? Yes. 1. [id number] ADMISSION PERFORMANCE: Partial/moderate assistance CODE: 03 SIT TO STAND: SIT TO STAND - STEP 1: Does the patient complete the activity by him/herself with no assistance (physical, verbal/nonverbal cueing, setup/clean-up)? No. SIT TO STAND - STEP 2: Does the patient need only setup/clean-up assistance from one helper? No. SIT TO STAND - STEP 3: Does the patient need only verbal/nonverbal cueing or touching/steadying/contact guard assistance fro m one helper? No. SIT TO STAND - STEP 4: Does the patient need physical assistance - for example lifting or trunk support from one helper - wi th the helper providing less than half of the effort? Yes. 1. [id number] ADMISSION PERFORMANCE: Partial/moderate assistance CODE: 03 TRANSFERS: BED, CHAIR: CHAIR/[id number] TRANSFER - STEP 1: Does the patient complete the activity by him/herself with no assistance (physical, verbal/nonverbal cueing, setup/clean-up)? No. CHAIR/[id number] TRANSFER - STEP 2: Does the patient need only setup/clean-up assistance from one helper? No. CHAIR/[id number] TRANSFER - STEP 3: Does the patient need only verbal/nonverbal cueing or touching/steadying/contact guard assistance fro m one helper? No. CHAIR/[id number] TRANSFER - STEP 4: Does the patient need physical assistance - for example lifting or trunk support from one helper - wi th the helper providing less than half of the effort? Yes. 1. [id number] ADMISSION PERFORMANCE: Partial/moderate assistance CODE: 03 TRANSFER TOILET: TOILET TRANSFER - STEP 1: Does the patient complete the activity by him/herself with no assistance (physical, verbal/nonverbal cueing, setup/clean-up)? No. TOILET TRANSFER - STEP 2: Does the patient need only setup/clean-up assistance from one helper? No. TOILET TRANSFER - STEP 3: Does the patient need only verbal/nonverbal cueing or touching/steadying/contact guard assistance fro m one helper? No. TOILET TRANSFER - STEP 4: Does the patient need physical assistance - for example lifting or trunk support from one helper - wi th the helper providing less than half of the effort? Yes. 1. [id number] ADMISSION PERFORMANCE: Partial/moderate assistance CODE: 03 TRANSFERS: CAR: Not assessed/no information CODE: - WALK 10 FEET: Not assessed/no information CODE: - 1 STEP (CURB): Not assessed/no information CODE: - PICKING UP OBJECT: Not assessed/no information CODE: - DOES THE PATIENT USE A WHEELCHAIR/SCOOTER? CODE: EXPR WHEEL 50 FEET WITH TWO TURNS: Not assessed/no information CODE: - INDICATE THE TYPE OF WHEELCHAIR/SCOOTER USED: CODE: EXPR WHEEL 150 FEET: Not assessed/no information CODE: - INDICATE THE TYPE OF WHEELCHAIR/SCOOTER USED: CODE: EXPR BLADDER AND BOWEL: H350. BLADDER CONTINENCE (3-DAY ASSESSMENT PERIOD): Stress incontinence only CODE: 1 H400. BOWEL CONTINENCE (3-DAY ASSESSMENT PERIOD): Always continent CODE: 0
[2019-06-15] MEDS: ACETAMINOPHEN 500 MG TAB PO PRN ×5 (02:14→23:58)
[2019-06-15 03:23] LABS: Urine Appearance TURBID; Urine Bilirubin NEGATIVE (NEG); Urine Blood 3+ (NEG); Urine Color YELLOW; Urine Glucose NEGATIVE (NEG); Urine Protein TRACE (NEG); Urine pH 7.5 (5.0-7.0)
[2019-06-15 04:03] LABS: Urine RBC TNTC /HPF (NONE SEEN)
[2019-06-15 04:04] LABS: Urine Bacteria >50 /HPF (<20); Urine Culture Reflex Order NOT NEEDED; Urine Mucus 1+ /HPF (NONE SEEN)
[2019-06-15] MEDS: METOPROLOL TAR 25 MG TAB PO SCH ×2 (05:21→16:32)
[2019-06-15] MEDS: LEVOTHYROXINE SOD 0.075 MG TAB PO SCH (06:21)
[2019-06-15] MEDS: PANTOPRAZOLE 40MG TABLET PO SCH (06:21)
[2019-06-15] MEDS: ARFORMOTEROL TARTRATE 15 MCG/2 ML VIAL.NEB NEB SCH ×2 (07:41→21:20)
[2019-06-15] MEDS: LIDOCAINE 4% PATCH TOP SCH (07:47)
[2019-06-15] MEDS: LIDOCAINE VISCOUS 2% SOLN 15 ML UDC MM SCH ×2 (08:32→20:01)
[2019-06-15] MEDS: CRANBERRY FRUIT EXTRACT 200 MG CAP PO SCH ×2 (08:33→20:00)
[2019-06-15] MEDS: PRAMIPEXOLE 1 MG TAB PO SCH (08:33)
[2019-06-15] MEDS: FE SULF/FA/VIT B COMP & C TAB PO SCH (08:34)
[2019-06-15] MEDS: CLOTRIMAZOLE 1% CREAM 15 GM TOP SCH ×2 (08:34→20:01)
[2019-06-15] MEDS: CLOPIDOGREL 75 MG TABLET PO SCH (08:34)
[2019-06-15] MEDS: FUROSEMIDE 40 MG TABLET PO SCH ×2 (08:34→16:33)
[2019-06-15] MEDS: acetaZOLAMIDE 250 MG TAB PO SCH (08:34)
[2019-06-15] MEDS ORDERED: POTASSIUM CL SA 10 MEQ TAB PO ONE (09:51)
[2019-06-15] MEDS: RIVAROXABAN 15 MG TABLET PO SCH (16:32)
[2019-06-15] MEDS: POTASSIUM CL SA 10 MEQ TAB PO SCH (20:00)
[2019-06-15] MEDS: MELATONIN 3 MG TABLET PO PRN (20:02)
[2019-06-16] MEDS: ACETAMINOPHEN 500 MG TAB PO PRN ×5 (04:34→23:59)
[2019-06-16] MEDS: METOPROLOL TAR 25 MG TAB PO SCH ×2 (05:13→17:06)
[2019-06-16] MEDS: LEVOTHYROXINE SOD 0.075 MG TAB PO SCH (06:30)
[2019-06-16] MEDS: PANTOPRAZOLE 40MG TABLET PO SCH (06:30)
[2019-06-16] MEDS: LIDOCAINE 4% PATCH TOP SCH (08:20)
[2019-06-16] MEDS: CLOPIDOGREL 75 MG TABLET PO SCH (08:21)
[2019-06-16] MEDS: CRANBERRY FRUIT EXTRACT 200 MG CAP PO SCH ×2 (08:21→20:02)
[2019-06-16] MEDS: acetaZOLAMIDE 250 MG TAB PO SCH (08:21)
[2019-06-16] MEDS: LIDOCAINE VISCOUS 2% SOLN 15 ML UDC MM SCH ×2 (08:21→20:00)
[2019-06-16] MEDS: POTASSIUM CL SA 10 MEQ TAB PO SCH ×2 (08:21→20:03)
[2019-06-16] MEDS: CLOTRIMAZOLE 1% CREAM 15 GM TOP SCH ×2 (08:21→20:02)
[2019-06-16] MEDS: PRAMIPEXOLE 1 MG TAB PO SCH (08:21)
[2019-06-16] MEDS: FE SULF/FA/VIT B COMP & C TAB PO SCH (08:22)
[2019-06-16] MEDS: FUROSEMIDE 40 MG TABLET PO SCH ×2 (08:22→17:07)
[2019-06-16] MEDS: ARFORMOTEROL TARTRATE 15 MCG/2 ML VIAL.NEB NEB SCH ×2 (10:16→20:15)
[2019-06-16] MEDS ORDERED: ZOLPIDEM TARTRATE 5 MG TABLET PO PRN (11:47)
[2019-06-16] MEDS ORDERED: ACETAMINOPHEN 500 MG TAB PO SCH (12:00)
[2019-06-16] MEDS: RIVAROXABAN 15 MG TABLET PO SCH ×2 (17:06→17:07)
[2019-06-16] MEDS: DIPHENHYDRAMINE 25 MG TAB/CAP PO PRN ×2 (20:02→20:48)
[2019-06-16] MEDS: MELATONIN 3 MG TABLET PO PRN (23:59)
[2019-06-17] MEDS: ACETAMINOPHEN 500 MG TAB PO PRN ×3 (04:45→19:57)
[2019-06-17] MEDS: METOPROLOL TAR 25 MG TAB PO SCH ×2 (05:31→17:10)
[2019-06-17] MEDS: LEVOTHYROXINE SOD 0.075 MG TAB PO SCH (07:31)
[2019-06-17] MEDS: LIDOCAINE VISCOUS 2% SOLN 15 ML UDC MM SCH ×2 (08:00→19:58)
[2019-06-17] MEDS: LIDOCAINE 4% PATCH TOP SCH ×2 (08:00→08:46)
[2019-06-17] MEDS: CLOTRIMAZOLE 1% CREAM 15 GM TOP SCH ×2 (08:46→19:57)
[2019-06-17] MEDS: PRAMIPEXOLE 1 MG TAB PO SCH (08:47)
[2019-06-17] MEDS: PANTOPRAZOLE 40MG TABLET PO SCH (08:47)
[2019-06-17] MEDS: CRANBERRY FRUIT EXTRACT 200 MG CAP PO SCH ×2 (08:47→19:56)
[2019-06-17] MEDS: POTASSIUM CL SA 10 MEQ TAB PO SCH ×2 (08:47→19:57)
[2019-06-17] MEDS: CLOPIDOGREL 75 MG TABLET PO SCH (08:47)
[2019-06-17] MEDS: FE SULF/FA/VIT B COMP & C TAB PO SCH (08:47)
[2019-06-17] MEDS: acetaZOLAMIDE 250 MG TAB PO SCH (08:47)
[2019-06-17] MEDS: FUROSEMIDE 40 MG TABLET PO SCH ×2 (08:47→17:11)
[2019-06-17] MEDS: ARFORMOTEROL TARTRATE 15 MCG/2 ML VIAL.NEB NEB SCH ×2 (09:00→20:25)
--- NOTE | 2019-06-17 14:57 | FAST ---
SHIFT START DATE/TIME: 06/17/2019 07:00 (CRIME SCENE SPECIALIST) SHIFT END DATE/TIME: 06/17/2019 19:00 (CRIME SCENE SPECIALIST) NAME LINH SANDS DATE OF : 1935 DATE OF ADMISSION: 06/13/2019 15:01 (CRIME SCENE SPECIALIST) PHONE: AGE: 84 N# [id number] GENDER: Female ENCOUNTER PHYSICIAN: Dr. Rambo De La Rosa M.D. ADMISSION DIAGNOSIS: - Cardiac 09 - Cardiac Disorders () CHF Exacerbation. EATING: EATING - STEP 1: Does the patient complete the activity by him/herself with no assistance (physical, verbal/nonverbal cueing, setup/clean-up)? No. EATING - STEP 2: Does the patient need only setup/clean-up assistance from one helper? Yes. 1. [id number] ADMISSION PERFORMANCE: Setup or clean-up assistance CODE: 05 ORAL HYGIENE: ORAL HYGIENE - STEP 1: Does the patient complete the activity by him/herself with no assistance (physical, verbal/nonverbal cueing, setup/clean-up)? No. ORAL HYGIENE - STEP 2: Does the patient need only setup/clean-up assistance from one helper? Yes. 1. [id number] ADMISSION PERFORMANCE: Setup or clean-up assistance CODE: 05 TOILETING HYGIENE: TOILETING HYGIENE - STEP 1: Does the patient complete the activity by him/herself with no assistance (physical, verbal/nonverbal cueing, setup/clean-up)? No. TOILETING HYGIENE - STEP 2: Does the patient need only setup/clean-up assistance from one helper? Yes. 1. [id number] ADMISSION PERFORMANCE: Setup or clean-up assistance CODE: 05 BATHING: Not assessed/no information CODE: - DRESSING - UPPER BODY: DRESSING - UPPER BODY - STEP 1: Does the patient complete the activity by him/herself with no assistance (physical, verbal/nonverbal cueing, setup/clean-up)? No. DRESSING - UPPER BODY - STEP 2: Does the patient need only setup/clean-up assistance from one helper? Yes. 1. [id number] ADMISSION PERFORMANCE: Setup or clean-up assistance CODE: 05 DRESSING - LOWER BODY: DRESSING - LOWER BODY - STEP 1: Does the patient complete the activity by him/herself with no assistance (physical, verbal/nonverbal cueing, setup/clean-up)? No. DRESSING - LOWER BODY - STEP 2: Does the patient need only setup/clean-up assistance from one helper? No. DRESSING - LOWER BODY - STEP 3: Does the patient need only verbal/nonverbal cueing or touching/steadying/contact guard assistance fro m one helper? Yes. 1. [id number] ADMISSION PERFORMANCE: Supervision or touching assistance CODE: 04 PUTTING ON/TAKING OFF FOOTWEAR: FOOTWEAR - STEP 1: Does the patient complete the activity by him/herself with no assistance (physical, verbal/nonverbal cueing, setup/clean-up)? No. FOOTWEAR - STEP 2: Does the patient need only setup/clean-up assistance from one helper? No. FOOTWEAR - STEP 3: Does the patient need only verbal/nonverbal cueing or touching/steadying/contact guard assistance fro m one helper? No. FOOTWEAR - STEP 4: Does the patient need physical assistance - for example lifting or trunk support from one helper - wi th the helper providing less than half of the effort? Yes. 1. [id number] ADMISSION PERFORMANCE: Partial/moderate assistance CODE: 03 SIT TO STAND: SIT TO STAND - STEP 1: Does the patient complete the activity by him/herself with no assistance (physical, verbal/nonverbal cueing, setup/clean-up)? No. SIT TO STAND - STEP 2: Does the patient need only setup/clean-up assistance from one helper? No. SIT TO STAND - STEP 3: Does the patient need only verbal/nonverbal cueing or touching/steadying/contact guard assistance fro m one helper? No. SIT TO STAND - STEP 4: Does the patient need physical assistance - for example lifting or trunk support from one helper - wi th the helper providing less than half of the effort? Yes. 1. [id number] ADMISSION PERFORMANCE: Partial/moderate assistance CODE: 03 TRANSFERS: BED, CHAIR: CHAIR/[id number] TRANSFER - STEP 1: Does the patient complete the activity by him/herself with no assistance (physical, verbal/nonverbal cueing, setup/clean-up)? No. CHAIR/[id number] TRANSFER - STEP 2: Does the patient need only setup/clean-up assistance from one helper? No. CHAIR/[id number]-[id number] TRANSFER - STEP 3: Does the patient need only verbal/nonverbal cueing or touching/steadying/contact guard assistance fro m one helper? No. CHAIR/[id number] TRANSFER - STEP 4: Does the patient need physical assistance - for example lifting or trunk support from one helper - wi th the helper providing less than half of the effort? Yes. 1. [id number] ADMISSION PERFORMANCE: Partial/moderate assistance CODE: 03 TRANSFER TOILET: TOILET TRANSFER - STEP 1: Does the patient complete the activity by him/herself with no assistance (physical, verbal/nonverbal cueing, setup/clean-up)? No. TOILET TRANSFER - STEP 2: Does the patient need only setup/clean-up assistance from one helper? No. TOILET TRANSFER - STEP 3: Does the patient need only verbal/nonverbal cueing or touching/steadying/contact guard assistance fro m one helper? Yes. 1. [id number] ADMISSION PERFORMANCE: Supervision or touching assistance CODE: 04 TRANSFERS: CAR: Not assessed/no information CODE: - WALK 10 FEET: Not assessed/no information CODE: - 1 STEP (CURB): Not assessed/no information CODE: - PICKING UP OBJECT: Not assessed/no information CODE: - DOES THE PATIENT USE A WHEELCHAIR/SCOOTER? Q1. DOES THE PATIENT USE A WHEELCHAIR/SCOOTER?: Yes CODE: 1 WHEEL 50 FEET WITH TWO TURNS: WHEEL 50 FEET WITH TWO TURNS - STEP 1: Does the patient complete the activity by him/herself with no assistance (physical, verbal/nonverbal cueing, setup/clean-up)? Yes. 1. [id number] ADMISSION PERFORMANCE: Independent CODE: 06 INDICATE THE TYPE OF WHEELCHAIR/SCOOTER USED: RR1. INDICATE THE TYPE OF WHEELCHAIR/SCOOTER USED.: Manual CODE: 1 WHEEL 150 FEET: WHEEL 150 FEET - STEP 1: Does the patient complete the activity by him/herself with no assistance (physical, verbal/nonverbal cueing, setup/clean-up)? No. WHEEL 150 FEET - STEP 2: Does the patient need only setup/clean-up assistance from one helper? Yes. 1. [id number] ADMISSION PERFORMANCE: Setup or clean-up assistance CODE: 05 INDICATE THE TYPE OF WHEELCHAIR/SCOOTER USED: SS1. INDICATE THE TYPE OF WHEELCHAIR/SCOOTER USED.: Manual CODE: 1 BLADDER AND BOWEL: H350. BLADDER CONTINENCE (3-DAY ASSESSMENT PERIOD): Always continent (no documented incontinence) CODE: 0 H400. BOWEL CONTINENCE (3-DAY ASSESSMENT PERIOD): Always continent CODE: 0 SIGNATURE PANEL: The following modified sections: 1. [id number] Admission Performance, 1. [id number] Admission Performance, 1. [id number] Admission Performance, 1. WS2802h Admission Performance, 1. [id number] Admission Performance, 1. [id number] Admission Performance, 1. PW6078a Admission Performance, 1. [id number] Admission Performance , 1. [id number] Admission Performance, 1. [id number] Admission Performance, 1. [id number] Admission Performanc e, Q1. Does the patient use a wheelchair/scooter?, 1. [id number] Admission Performance, RR1. Indicate th e type of wheelchair/scooter used., 1. [id number] Admission Performance, Code, SS1. Indicate the type of wheelchair/scooter used., H350. Bladder Continence (3-day assessment period), H400. Bowel Continence (3-day assessment period) were [electronically] signed by Fina RussellNRoberto Carlos on MonJun 17 2019 14 :56:33 GMT-0600 (Central Standard Time)
[2019-06-17] MEDS: levoFLOXacin 500 MG TAB PO SCH (17:10)
--- NOTE | 2019-06-17 17:47 | R.PN ---
ENCOUNTER DATE AND TIME: 06/17/2019 17:23 (OUTBOARD SYSTEM OPERATOR) NAME LINH SANDS DATE OF : 1935 DATE OF ADMISSION: 06/13/2019 15:01 (OUTBOARD SYSTEM OPERATOR) CHF ExacerbationCHIEF COMPLAINT: Debility and CHF exacerbation SUBJECTIVE: Pt denied any depression. Pt denied any Shortness of Breath. Ambulated 100' with standby assistance using a rolling walker. Self-propelled wheelchair 150' with st andby assistance. VITAL SIGNS Temperature: 98 F SBP/DBP: 120/54 Pulse: 70 Resp: 16 MEDICATION ALLERGIES: Codeine Opioids ENVIRONMENTAL ALLERGIES: None Known - Substance Allergies None Known - Other Allergies None Known NURSING: - Shower allowing shower ACTIVITIES OOB only with supervision THERAPIES: - Dietary and Nutrition Adequate Nutrition. Nutritional Education. Nutritional Supplements. PHYSICAL EXAM - Gen Alert and awake Lying in bed No apparent distress Oriented to: person, time, and place - Skin No skin breakdown. Normacephalic - Eyes No abnormalities - ENMT No abnormalities - Neck No abnormalities - CVS RRR - Chest No abnormalities - Resp No wheezing - Abd Soft - GI Non distended Deferred - No abnormalities - Ext Mild bilateral lower extremity edema. - MSK 4+/5 weakness in both lower extremities. - Neuro No focal deficits - Psych No abnormalities ASSESSMENT: Pt. is a 84 yo Right-handed white female.On 06/06/2019 she was admitted to [facility] with diagnosis CHF Exacerbation.Her impairment category is Cardiac 09 - Cardiac Disorders (09 ).Pre-morbidly, Pt. was independent/mod-I in Locomotion, Safety Awareness, Balance, Social Cognition, Transfers Control, Sphincter Control, Self-Care, Communication, and Endurance; and she had good [place] motion, Safety Awareness, Balance, Social Cognition, Transfers Control, Sphincter Control, Self-Care, Communication, and Endurance.Currently, she has deficits of Locomotion, Safety Awareness, Balance, S ocial Cognition, Transfers Control, Self-Care, Communication, and Endurance.Pt. is now referred to [facility] for acute in-patient rehabilitation in order to maximize patient's fu nctional independence in activities of daily living, strength, ROM, and mobility.- Rehab Goal Patient has realistic goal of being discharged at assistance level 6-Radha to reside at Home with Att endant. MDM/PLAN: - Physical Therapy Gait dysfunction - to improve, our physical therapists will perform initial evaluation of pt's statu s upon admission and devise an individualized program for Gait Training, and Wheel Chair mobility Inability to transfer - to improve, our physical therapists will perform initial evaluation of pt's status upon admission and devise an individualized program for Bed mobility Need for home safety evaluation - to improve, our physical therapists will perform initial evaluatio n of pt's status upon admission and devise an individualized program for Home Evaluation Need in caregiver upon discharge - to improve, our physical therapists will perform initial evaluati on of pt's status upon admission and devise an individualized program for Caregiver Training Edema - to improve, our physical therapists will perform initial evaluation of pt's status upon admis ermelinda and devise an individualized program for Elevation Training, and Lymphedema Therapy New precaution - to improve, our physical therapists will perform initial evaluation of pt's status upon admission and devise an individualized program for Patient precaution education Poor balance - to improve, our physical therapists will perform initial evaluation of pt's status up on admission and devise an individualized program for Balance Training Poor endurance - to improve, our physical therapists will perform initial evaluation of pt's status upon admission and devise an individualized program for Endurance Training Weakness - to improve, our physical therapists will perform initial evaluation of pt's status upon a dmission and devise an individualized program for Aquatic Therapy, Neuromuscular Reeducation, and Str engthening Achieving independence - to improve, our physical therapists will perform initial evaluation of pt's status upon admission and devise an individualized program for Community Reintegration Activities - Occupational Therapy ADL deficits - to improve, our occupation therapists will perform initial evaluation of pt's status upon admission and devise an individualized program for Bathing, Bed mobility, Community Reintegratio n, Cooking, Dressing, Eating, Fine Motor Skills, Grooming, Homemaking, Kitchen Mobility, Laundry, Pat ient Education, Safety Awareness, Splinting - Positioning, Transfers(Toilet, Tub, Shower), and Wheel Chair Management Cognitive deficits - to improve, our occupation therapists will perform initial evaluation of pt's s tatus upon admission and devise an individualized program for Cognition - orientation Need for early breastfeeding care specialist - to improve, our occupation therapists will perform initial evaluation of pt's status upon admission and devise an individualized program for Caregiver Training Weakness - to improve, our occupation therapists will perform initial evaluation of pt's status upon admission and devise an individualized program for Aquatic Therapy, Balance, Endurance, UE ROM, and UE strengthening - Other See attached MAR (Medication Administration Record) - Diet Type Continue Regular - Diet - Liquid Texture Continue Regular - Tube Feed Continue N/A - Diet - Solid Texture Continue Regular Continue Mechanical Soft - Shower allowing shower FUNCTIONAL STATUS: UPDATED AT WEEKLY TEAM CONFERENCE - Bladder Same accident frequency: 7-Ind - No accidents in the past 7 days - Bowel Same accident frequency: 7-Ind - No accidents in the past 7 days - Walking Same score based on distance walked: 0(N/A) Same score based on distance walked: 2(50-149ft) - Wheelchair Same score based on distance traveled: 0(N/A) Same score based on distance traveled: 2(50-149ft) FUNCTIONAL STATUS: - Self-Care A. Eating Ind B. Grooming Radha C. Bathing modA D. Dressing - Upper modA E. Dressing - Lower modA F. Toileting Maria Isabel - Sphincter Control G. Bladder control Maria Isabel H. Bowel control Maria Isabel - Transfers Control I. Bed/Chair/Wheelchair modA J. Toilet modA K. Tub/Shower maxA - Locomotion L. Walk/Wheelchair (B) modA M. Stairs maxA - Communication N. Comprehension (B) sup O. Expression (B) sup - Social Cognition P. Social Interaction Radha Q. Problem Solving sup R. Memory sup - Endurance Fair - Balance Fair - Safety Awareness Good QI SCORES: - Self-Care A. Eating 05-Setup or clean-up assistance B. Oral hygiene 05-Setup or clean-up assistance C. Toileting hygiene 02-Substantial/maximal assistance E. Shower/bathe self 03-Partial/moderate assistance F. Upper body dressing 03-Partial/moderate assistance G. Lower body dressing 02-Substantial/maximal assistance H. Putting on/taking off footwear 02-Substantial/maximal assistance - Mobility C. Lying to sitting on side of bed 03-Partial/moderate assistance B. Sit to lying 03-Partial/moderate assistance D. Sit to stand 03-Partial/moderate assistance E. Chair/png-wu-unmnp transfer 03-Partial/moderate assistance F. Toilet transfer 03-Partial/moderate assistance G. Car transfer 10-Not attempted due to environmental limitations I. Walk 10 feet 04-Supervision or touching assistance J. Walk 50 feet with two turns 88-Not attempted due to medical condition or safety concerns K. Walk 150 feet 88-Not attempted due to medical condition or safety concerns L. Walking 10 feet on uneven surfaces 88-Not attempted due to medical condition or safety concerns M. 1 step (curb) 88-Not attempted due to medical condition or safety concerns N. 4 steps 88-Not attempted due to medical condition or safety concerns O. 12 steps 88-Not attempted due to medical condition or safety concerns P. Picking up object 88-Not attempted due to medical condition or safety concerns R. Wheel 50 feet with two turns 88-Not attempted due to medical condition or safety concerns S. Wheel 150 feet 02-Substantial/maximal assistance - Bladder and Bowel Bladder continence 3-Incontinent daily Bowel continence 0-Always continent - Endurance Poor - Balance Fair - Safety Awareness Fair [facility]IC[facility]: Self-Care, Mobility, Endurance, Balance, and Safety Awareness SIGNATURE PANEL: (OUTBOARD SYSTEM OPERATOR)
[2019-06-17] MEDS: DIPHENHYDRAMINE 25 MG TAB/CAP PO PRN (19:58)
[2019-06-17] MEDS: MELATONIN 3 MG TABLET PO PRN (19:58)
[2019-06-18] MEDS: ACETAMINOPHEN 500 MG TAB PO PRN ×2 (00:24→04:24)
[2019-06-18] MEDS: METOPROLOL TAR 25 MG TAB PO SCH ×2 (05:28→17:34)
[2019-06-18] MEDS: PANTOPRAZOLE 40MG TABLET PO SCH (06:58)
[2019-06-18] MEDS: LEVOTHYROXINE SOD 0.075 MG TAB PO SCH (06:58)
[2019-06-18] MEDS: LIDOCAINE 4% PATCH TOP SCH (08:00)
[2019-06-18] MEDS: CLOTRIMAZOLE 1% CREAM 15 GM TOP SCH ×2 (08:00→19:06)
[2019-06-18] MEDS: LIDOCAINE VISCOUS 2% SOLN 15 ML UDC MM SCH ×2 (08:00→19:07)
[2019-06-18] MEDS: FE SULF/FA/VIT B COMP & C TAB PO SCH (09:00)
[2019-06-18] MEDS: POTASSIUM CL SA 10 MEQ TAB PO SCH ×2 (09:01→19:07)
[2019-06-18] MEDS: levoFLOXacin 500 MG TAB PO SCH (09:01)
[2019-06-18] MEDS: CRANBERRY FRUIT EXTRACT 200 MG CAP PO SCH ×2 (09:02→19:07)
[2019-06-18] MEDS: PRAMIPEXOLE 1 MG TAB PO SCH (09:02)
[2019-06-18] MEDS: CLOPIDOGREL 75 MG TABLET PO SCH (09:03)
[2019-06-18] MEDS: acetaZOLAMIDE 250 MG TAB PO SCH (09:03)
[2019-06-18] MEDS: FUROSEMIDE 40 MG TABLET PO SCH ×2 (09:03→16:18)
[2019-06-18] MEDS: ARFORMOTEROL TARTRATE 15 MCG/2 ML VIAL.NEB NEB SCH ×2 (09:40→22:40)
[2019-06-18] MEDS: ACETAMINOPHEN 325 MG TABLET PO PRN ×3 (13:08→22:48)
[2019-06-18] MEDS: RIVAROXABAN 15 MG TABLET PO SCH (16:11)
[2019-06-18] MEDS: MELATONIN 5 MG TABLET PO SCH (19:07)
[2019-06-18] MEDS ORDERED: TRAZODONE 50 MG TABLET PO SCH (21:00)
--- NOTE | 2019-06-18 21:58 | PN ---
Subjective: Ms. Melton reports not sleeping well over the last 3 nights and she had difficulty main taining her CPAP and she did receive melatonin, Benadryl, but still has not been able to sleep. As a consequence, she has not participated in physical therapy, sitting in her chair, mostly throughout t he day. Her case was discussed with the patient's daughter and the psychiatrist available and the deedee brewer's daughter indicated that there was a miscommunication regarding the possible use of trazodone to help her sleep and she is now in agreement with that and also she may restart Effexor which she wa s on previously and that will be discussed with Psychiatry. Objective: Vital Signs: Blood pressure 133/61, pulse of 70, respiratory rate of 16, temperature 97. 8. Pain level of 0. Weight 270 pounds, height 5 feet 8 inches, BMI 33. General: Ms. Melton was resting in a chair with her CPAP on when I came into the room. Neuro: She was awake, alert, and interacted normally. Her examination reveals no focal deficits in the face, arm, or leg. She has good air movement bilaterally. She does have diffuse weakness in the upper and lower extremities and mild edema in the lower extremities. Laboratory Data: Her blood work today revealed a potassium level of 3.4, yesterday was 3.5, the day before that 3.6. She is on potassium replacement plus she is on furosemide 40 mg twice daily. She i s also on Levaquin 500 mg twice daily for a potential urinary tract infection with E coli along with a contaminant Enterococcus faecalis. The patient reportedly had increased frequency, urgency, and dy suria. Furthermore, the patient's urine showed ESBL E coli and she was felt to be colonized as this was seen in the previous urinalysis prior to coming up in the rehabilitation unit then it became nega tive and now positive again. She is sensitive to Levaquin and she is on Levaquin started on 06/17 to go to 06/21. Assessment: Ms. Melton is an 84-year-old patient with congestive heart failure exacerbation, likely urinary tract infection with extended-spectrum beta-lactamases Escherichia coli and possible contami nant with enterococcus faecalis. She has obstructive sleep apnea and has difficulty sleeping at [facility]. She also has history of depression and she was seen now by our psychiatrist. Plan: We will use trazodone 25 mg at night, melatonin 5 mg at night. May restart Effexor per Psychi atry. Also use CPAP as much as possible and we will continue with Lasix at low dose for lower extrem ity edema. We will continue with potassium replacement given her low potassium. Continue with Levaq uin for 5 days. Next, we will restart physical and occupational therapy as tolerated tomorrow. LB/MODL Voice ID: [id number] Report ID: [id number]
[2019-06-19] MEDS: ACETAMINOPHEN 325 MG TABLET PO PRN ×4 (03:22→23:23)
[2019-06-19 06:07] LABS: Absolute Lymphocytes (CBC) 1.1 K/uL (0.7-4.9); Basophils % 1.2 % (0-1.3); Hematocrit 31.2 % (36.0-45.0); Lymphocytes % 17.6 % (15.3-44.8); MPV 7.8 fL (7.6-11.3); RBC Red Blood Cell Count 3.29 M/uL (3.86-4.86)
[2019-06-19 06:22] LABS: Potassium 3.4 mmol/L (3.5-5.1)
[2019-06-19 06:28] LABS: Albumin 2.8 g/dL (3.4-5.0); Magnesium 2.1 mg/dL (1.8-2.4); Prealbumin 22.5 mg/dL (20-40)
[2019-06-19] MEDS: LEVOTHYROXINE SOD 0.075 MG TAB PO SCH (06:34)
[2019-06-19] MEDS: LIDOCAINE 4% PATCH TOP SCH (06:34)
[2019-06-19] MEDS: METOPROLOL TAR 25 MG TAB PO SCH ×2 (06:35→17:11)
[2019-06-19] MEDS: PANTOPRAZOLE 40MG TABLET PO SCH (06:35)
[2019-06-19] MEDS: ARFORMOTEROL TARTRATE 15 MCG/2 ML VIAL.NEB NEB SCH ×2 (07:25→19:57)
[2019-06-19 07:37] LABS: Anisocytosis 1+; Blood Morphology Comment NOTED (NOT SEEN); Platelet Estimate ADEQ
[2019-06-19] MEDS: LIDOCAINE VISCOUS 2% SOLN 15 ML UDC MM SCH ×2 (08:00→19:22)
[2019-06-19] MEDS: CLOTRIMAZOLE 1% CREAM 15 GM TOP SCH ×2 (08:55→19:21)
[2019-06-19] MEDS: CRANBERRY FRUIT EXTRACT 200 MG CAP PO SCH ×2 (08:55→19:22)
[2019-06-19] MEDS: PRAMIPEXOLE 1 MG TAB PO SCH (08:56)
[2019-06-19] MEDS: POTASSIUM CL SA 10 MEQ TAB PO SCH ×2 (08:56→19:22)
[2019-06-19] MEDS: acetaZOLAMIDE 250 MG TAB PO SCH (08:56)
[2019-06-19] MEDS: FE SULF/FA/VIT B COMP & C TAB PO SCH (08:56)
[2019-06-19] MEDS: levoFLOXacin 500 MG TAB PO SCH (08:57)
[2019-06-19] MEDS: CLOPIDOGREL 75 MG TABLET PO SCH (08:57)
[2019-06-19] MEDS: FUROSEMIDE 40 MG TABLET PO SCH ×2 (09:00→16:30)
[2019-06-19] MEDS: GABAPENTIN 100 MG CAP PO SCH ×2 (12:20→19:22)
[2019-06-19] MEDS: VENLAFAXINE HCL 37.5 MG TAB PO SCH (12:22)
--- NOTE | 2019-06-19 13:42 | CON ---
Date of Consultation: 06/14/2019 Chief Complaint: Psychiatry is consulted to evaluate patient with anxiety and difficulty in staying asleep and provide recommendation to treatment team. History Of Present Illness: On evaluation, Ms. Melton is an 84-year-old female. She was met in her room, sitting in chair, not in any acute distress. She reports a chronic history of anxiety and insomnia. Patient describes anxiety as excessive worrying, feeling nervous. There is no associated panic attacks. Patient identify wearing a BiPAP, facemask. Patient states that she is also restless at night, twisting and turning in bed. She states she sleeps in a reclined chair. Denies having a suicidal or homicidal ideation. Patient states she is tired been in the hospital where she has been admitted for close to 3 weeks for acute inpatient rehab. Denies any history of psychosis. Denies past history of acute psychiatric inpatient admission. She is a . She states her was very self-centered, never helped raise the kids or indulge himself in drinking. States she had to walk to pay all the bills and take care of the kids. States she feels resentful that her mistreated her. 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 Objective: Vital Signs: Blood pressure 120/54, respiratory rate is 16, pulse rate is 70, temp is . Mental Status Examination: Patient is an obese built female, appropriately dressed in hospital gown with fair grooming and hygiene. She is alert and oriented x3. She is cooperative with interview. She has slight bilateral tremors otherwise no other stereotypic movement noted. Concentration and memory is suboptimal. Speech is essentially normal. Mood, she is described as anxious. Affect is mood congruent. Thought process is linear, at times circumstantial. Thought content, no delusional thinking, no suicidal or homicidal ideation, no AVH. Patient is not internally preoccupied. Insight and judgment, impulse control is fair. Diagnoses: 1. Generalized anxiety disorder. 2. Adjustment disorder with anxious distress. Plan: Recommend Trazodone 50 mg PO qhs for sleep. Recommend Venlafaxine 37.5 mg PO Daily for anxiety Discussed recommendation with patient's daughter who consented to the above treatment recommendation. Discussed recommendation with patient's Physician Thank you for the consult. JEN Voice ID: [id number] Report ID: [id number] ADRIANO
[2019-06-19] MEDS ORDERED: POTASSIUM CL SA 10 MEQ TAB PO ONE (14:21)
--- NOTE | 2019-06-19 14:22 | FAST ---
ENCOUNTER DATE AND TIME: 06/19/2019 08:00 (AIR GUN OPERATOR) NAME LINH SANDS DATE OF : 1935 DATE OF ADMISSION: 06/13/2019 15:01 (AIR GUN OPERATOR) PHONE: AGE: 84 N# [id number] GENDER: Female ENCOUNTER PHYSICIAN: Dr. Rambo De La Rosa M.D. ADMISSION DIAGNOSIS: - Cardiac 09 - Cardiac Disorders () CHF Exacerbation. EATING: Not assessed/no information CODE: - ORAL HYGIENE: ORAL HYGIENE - STEP 1: Does the patient complete the activity by him/herself with no assistance (physical, verbal/nonverbal cueing, setup/clean-up)? Yes. 1. [id number] ADMISSION PERFORMANCE: Independent CODE: 06 TOILETING HYGIENE: Not assessed/no information CODE: - BATHING: SHOWER/BATHE SELF - STEP 1: Does the patient complete the activity by him/herself with no assistance (physical, verbal/nonverbal cueing, setup/clean-up)? No. SHOWER/BATHE SELF - STEP 2: Does the patient need only setup/clean-up assistance from one helper? No. SHOWER/BATHE SELF - STEP 3: Does the patient need only verbal/nonverbal cueing or touching/steadying/contact guard assistance fro m one helper? Yes. 1. [id number] ADMISSION PERFORMANCE: Supervision or touching assistance CODE: 04 DRESSING - UPPER BODY: DRESSING - UPPER BODY - STEP 1: Does the patient complete the activity by him/herself with no assistance (physical, verbal/nonverbal cueing, setup/clean-up)? No. DRESSING - UPPER BODY - STEP 2: Does the patient need only setup/clean-up assistance from one helper? No. DRESSING - UPPER BODY - STEP 3: Does the patient need only verbal/nonverbal cueing or touching/steadying/contact guard assistance fro m one helper? Yes. 1. [id number] ADMISSION PERFORMANCE: Supervision or touching assistance CODE: 04 DRESSING - LOWER BODY: DRESSING - LOWER BODY - STEP 1: Does the patient complete the activity by him/herself with no assistance (physical, verbal/nonverbal cueing, setup/clean-up)? No. DRESSING - LOWER BODY - STEP 2: Does the patient need only setup/clean-up assistance from one helper? No. DRESSING - LOWER BODY - STEP 3: Does the patient need only verbal/nonverbal cueing or touching/steadying/contact guard assistance fro m one helper? Yes. 1. [id number] ADMISSION PERFORMANCE: Supervision or touching assistance CODE: 04 PUTTING ON/TAKING OFF FOOTWEAR: FOOTWEAR - STEP 1: Does the patient complete the activity by him/herself with no assistance (physical, verbal/nonverbal cueing, setup/clean-up)? No. FOOTWEAR - STEP 2: Does the patient need only setup/clean-up assistance from one helper? No. FOOTWEAR - STEP 3: Does the patient need only verbal/nonverbal cueing or touching/steadying/contact guard assistance fro m one helper? No. FOOTWEAR - STEP 4: Does the patient need physical assistance - for example lifting or trunk support from one helper - wi th the helper providing less than half of the effort? Yes. 1. [id number] ADMISSION PERFORMANCE: Partial/moderate assistance CODE: 03 DOES THE PATIENT USE A WHEELCHAIR/SCOOTER? CODE: EXPR INDICATE THE TYPE OF WHEELCHAIR/SCOOTER USED: CODE: EXPR INDICATE THE TYPE OF WHEELCHAIR/SCOOTER USED: CODE: EXPR BLADDER AND BOWEL: CODE: EXPR CODE: EXPR SIGNATURE PANEL: The following modified sections: 1. [id number] Admission Performance, 1. [id number] Admission Performance, 1. [id number] Admission Performance, 1. [id number] Admission Performance, 1. [id number] Admission Performance were [electronically] signed by MAXIMO Looney on MonJun 19 2019 14:21:16 T-0600 (Central Standard Time)
--- NOTE | 2019-06-19 15:02 | FAST ---
SHIFT START DATE/TIME: 06/19/2019 07:00 (WHITTLING ROOM OPERATOR) SHIFT END DATE/TIME: 06/19/2019 19:00 (WHITTLING ROOM OPERATOR) NAME LINH SANDS DATE OF : 1935 DATE OF ADMISSION: 06/13/2019 15:01 (WHITTLING ROOM OPERATOR) PHONE: AGE: 84 N# [id number] GENDER: Female ENCOUNTER PHYSICIAN: Dr. Rambo De La Rosa M.D. ADMISSION DIAGNOSIS: - Cardiac 09 - Cardiac Disorders () CHF Exacerbation. EATING: EATING - STEP 1: Does the patient complete the activity by him/herself with no assistance (physical, verbal/nonverbal cueing, setup/clean-up)? Yes. 1. [id number] ADMISSION PERFORMANCE: Independent CODE: 06 ORAL HYGIENE: ORAL HYGIENE - STEP 1: Does the patient complete the activity by him/herself with no assistance (physical, verbal/nonverbal cueing, setup/clean-up)? Yes. 1. [id number] ADMISSION PERFORMANCE: Independent CODE: 06 TOILETING HYGIENE: TOILETING HYGIENE - STEP 1: Does the patient complete the activity by him/herself with no assistance (physical, verbal/nonverbal cueing, setup/clean-up)? No. TOILETING HYGIENE - STEP 2: Does the patient need only setup/clean-up assistance from one helper? Yes. 1. [id number] ADMISSION PERFORMANCE: Setup or clean-up assistance CODE: 05 BATHING: Not assessed/no information CODE: - DRESSING - UPPER BODY: DRESSING - UPPER BODY - STEP 1: Does the patient complete the activity by him/herself with no assistance (physical, verbal/nonverbal cueing, setup/clean-up)? No. DRESSING - UPPER BODY - STEP 2: Does the patient need only setup/clean-up assistance from one helper? No. DRESSING - UPPER BODY - STEP 3: Does the patient need only verbal/nonverbal cueing or touching/steadying/contact guard assistance fro m one helper? Yes. 1. [id number] ADMISSION PERFORMANCE: Supervision or touching assistance CODE: 04 DRESSING - LOWER BODY: DRESSING - LOWER BODY - STEP 1: Does the patient complete the activity by him/herself with no assistance (physical, verbal/nonverbal cueing, setup/clean-up)? No. DRESSING - LOWER BODY - STEP 2: Does the patient need only setup/clean-up assistance from one helper? No. DRESSING - LOWER BODY - STEP 3: Does the patient need only verbal/nonverbal cueing or touching/steadying/contact guard assistance fro m one helper? Yes. 1. [id number] ADMISSION PERFORMANCE: Supervision or touching assistance CODE: 04 PUTTING ON/TAKING OFF FOOTWEAR: FOOTWEAR - STEP 1: Does the patient complete the activity by him/herself with no assistance (physical, verbal/nonverbal cueing, setup/clean-up)? No. FOOTWEAR - STEP 2: Does the patient need only setup/clean-up assistance from one helper? No. FOOTWEAR - STEP 3: Does the patient need only verbal/nonverbal cueing or touching/steadying/contact guard assistance fro m one helper? No. FOOTWEAR - STEP 4: Does the patient need physical assistance - for example lifting or trunk support from one helper - wi th the helper providing less than half of the effort? Yes. 1. [id number] ADMISSION PERFORMANCE: Partial/moderate assistance CODE: 03 DOES THE PATIENT USE A WHEELCHAIR/SCOOTER? CODE: EXPR INDICATE THE TYPE OF WHEELCHAIR/SCOOTER USED: CODE: EXPR INDICATE THE TYPE OF WHEELCHAIR/SCOOTER USED: CODE: EXPR BLADDER AND BOWEL: H350. BLADDER CONTINENCE (3-DAY ASSESSMENT PERIOD): Always continent (no documented incontinence) CODE: 0 H400. BOWEL CONTINENCE (3-DAY ASSESSMENT PERIOD): Always continent CODE: 0 SIGNATURE PANEL: The following modified sections: 1. [id number] Admission Performance, 1. [id number] Admission Performance, 1. [id number] Admission Performance, 1. [id number] Admission Performance, 1. [id number] Admission Performance, 1. NL7700c Admission Performance, 1. [id number] Admission Performance, H350. Bladder Continence (3-day assessment period), H400. Bowel Continence (3-day assessment period) were [electronically] signed by Fina RussellNRoberto Carlos on MonJun 19 2019 15:02:23 GMT-0600 (Central Standard Time)
[2019-06-19] MEDS: RIVAROXABAN 15 MG TABLET PO SCH (16:30)
[2019-06-19] MEDS: TRAZODONE 50 MG TABLET PO SCH (19:21)
[2019-06-19] MEDS: ONDANSETRON 4 MG (ODT) TAB PO PRN (19:21)
[2019-06-19] MEDS: MELATONIN 5 MG TABLET PO SCH (19:22)
[2019-06-19] MEDS: PROMOD 30 ML DOSE PO SCH (19:23)
[2019-06-19] MEDS: DOCUSATE NA/SENNA CONC 1 TAB PO PRN (19:52)
[2019-06-19] MEDS ORDERED: GABAPENTIN 100 MG CAP PO SCH (20:00)
[2019-06-20] MEDS: ACETAMINOPHEN 325 MG TABLET PO PRN ×4 (03:36→18:46)
[2019-06-20] MEDS: METOPROLOL TAR 25 MG TAB PO SCH ×2 (05:13→17:17)
[2019-06-20] MEDS: PANTOPRAZOLE 40MG TABLET PO SCH (06:31)
[2019-06-20] MEDS: LEVOTHYROXINE SOD 0.075 MG TAB PO SCH (06:31)
[2019-06-20] MEDS: VENLAFAXINE HCL 37.5 MG TAB PO SCH (08:00)
[2019-06-20] MEDS: ARFORMOTEROL TARTRATE 15 MCG/2 ML VIAL.NEB NEB SCH ×2 (08:21→20:00)
[2019-06-20] MEDS: LIDOCAINE VISCOUS 2% SOLN 15 ML UDC MM SCH ×2 (08:53→18:47)
[2019-06-20] MEDS: levoFLOXacin 500 MG TAB PO SCH (08:54)
[2019-06-20] MEDS: POTASSIUM CL SA 10 MEQ TAB PO SCH ×3 (08:54→18:46)
[2019-06-20] MEDS: CRANBERRY FRUIT EXTRACT 200 MG CAP PO SCH ×2 (08:54→18:45)
[2019-06-20] MEDS: PRAMIPEXOLE 1 MG TAB PO SCH (08:54)
[2019-06-20] MEDS: FUROSEMIDE 40 MG TABLET PO SCH ×2 (08:54→17:18)
[2019-06-20] MEDS: acetaZOLAMIDE 250 MG TAB PO SCH (08:55)
[2019-06-20] MEDS: FE SULF/FA/VIT B COMP & C TAB PO SCH (08:55)
[2019-06-20] MEDS: CLOTRIMAZOLE 1% CREAM 15 GM TOP SCH ×2 (08:55→18:45)
[2019-06-20] MEDS: GABAPENTIN 100 MG CAP PO SCH ×2 (08:55→18:46)
[2019-06-20] MEDS: CLOPIDOGREL 75 MG TABLET PO SCH (08:55)
[2019-06-20] MEDS: PROMOD 30 ML DOSE PO SCH ×2 (08:56→18:47)
--- NOTE | 2019-06-20 09:30 | FAST ---
SHIFT START DATE/TIME: 06/20/2019 07:00 (EMBROIDERER HAND) SHIFT END DATE/TIME: 06/20/2019 19:00 (EMBROIDERER HAND) NAME LINH SANDS DATE OF : 1935 DATE OF ADMISSION: 06/13/2019 15:01 (EMBROIDERER HAND) PHONE: AGE: 84 N# [id number] GENDER: Female ENCOUNTER PHYSICIAN: Dr. Rambo De La Rosa M.D. ADMISSION DIAGNOSIS: - Cardiac 09 - Cardiac Disorders () CHF Exacerbation. EATING: EATING - STEP 1: Does the patient complete the activity by him/herself with no assistance (physical, verbal/nonverbal cueing, setup/clean-up)? No. EATING - STEP 2: Does the patient need only setup/clean-up assistance from one helper? No. EATING - STEP 3: Does the patient need only verbal/nonverbal cueing or touching/steadying/contact guard assistance fro m one helper? Yes. 1. [id number] ADMISSION PERFORMANCE: Supervision or touching assistance CODE: 04 ORAL HYGIENE: ORAL HYGIENE - STEP 1: Does the patient complete the activity by him/herself with no assistance (physical, verbal/nonverbal cueing, setup/clean-up)? No. ORAL HYGIENE - STEP 2: Does the patient need only setup/clean-up assistance from one helper? No. ORAL HYGIENE - STEP 3: Does the patient need only verbal/nonverbal cueing or touching/steadying/contact guard assistance fro m one helper? Yes. 1. [id number] ADMISSION PERFORMANCE: Supervision or touching assistance CODE: 04 TOILETING HYGIENE: TOILETING HYGIENE - STEP 1: Does the patient complete the activity by him/herself with no assistance (physical, verbal/nonverbal cueing, setup/clean-up)? No. TOILETING HYGIENE - STEP 2: Does the patient need only setup/clean-up assistance from one helper? No. TOILETING HYGIENE - STEP 3: Does the patient need only verbal/nonverbal cueing or touching/steadying/contact guard assistance fro m one helper? Yes. 1. [id number] ADMISSION PERFORMANCE: Supervision or touching assistance CODE: 04 BATHING: Not assessed/no information CODE: - DRESSING - UPPER BODY: DRESSING - UPPER BODY - STEP 1: Does the patient complete the activity by him/herself with no assistance (physical, verbal/nonverbal cueing, setup/clean-up)? No. DRESSING - UPPER BODY - STEP 2: Does the patient need only setup/clean-up assistance from one helper? No. DRESSING - UPPER BODY - STEP 3: Does the patient need only verbal/nonverbal cueing or touching/steadying/contact guard assistance fro m one helper? Yes. 1. [id number] ADMISSION PERFORMANCE: Supervision or touching assistance CODE: 04 DRESSING - LOWER BODY: DRESSING - LOWER BODY - STEP 1: Does the patient complete the activity by him/herself with no assistance (physical, verbal/nonverbal cueing, setup/clean-up)? No. DRESSING - LOWER BODY - STEP 2: Does the patient need only setup/clean-up assistance from one helper? No. DRESSING - LOWER BODY - STEP 3: Does the patient need only verbal/nonverbal cueing or touching/steadying/contact guard assistance fro m one helper? Yes. 1. [id number] ADMISSION PERFORMANCE: Supervision or touching assistance CODE: 04 PUTTING ON/TAKING OFF FOOTWEAR: Not assessed/no information CODE: - ROLL LEFT AND RIGHT: Not assessed/no information CODE: - SIT TO LYING: Not assessed/no information CODE: - LYING TO SITTING: LYING TO SITTING ON SIDE OF BED - STEP 1: Does the patient complete the activity by him/herself with no assistance (physical, verbal/nonverbal cueing, setup/clean-up)? No. LYING TO SITTING ON SIDE OF BED - STEP 2: Does the patient need only setup/clean-up assistance from one helper? No. LYING TO SITTING ON SIDE OF BED - STEP 3: Does the patient need only verbal/nonverbal cueing or touching/steadying/contact guard assistance fro m one helper? No. LYING TO SITTING ON SIDE OF BED - STEP 4: Does the patient need physical assistance - for example lifting or trunk support from one helper - wi th the helper providing less than half of the effort? Yes. 1. [id number] ADMISSION PERFORMANCE: Partial/moderate assistance CODE: 03 SIT TO STAND: SIT TO STAND - STEP 1: Does the patient complete the activity by him/herself with no assistance (physical, verbal/nonverbal cueing, setup/clean-up)? No. SIT TO STAND - STEP 2: Does the patient need only setup/clean-up assistance from one helper? No. SIT TO STAND - STEP 3: Does the patient need only verbal/nonverbal cueing or touching/steadying/contact guard assistance fro m one helper? No. SIT TO STAND - STEP 4: Does the patient need physical assistance - for example lifting or trunk support from one helper - wi th the helper providing less than half of the effort? Yes. 1. [id number] ADMISSION PERFORMANCE: Partial/moderate assistance CODE: 03 TRANSFERS: BED, CHAIR: CHAIR/[id number] TRANSFER - STEP 1: Does the patient complete the activity by him/herself with no assistance (physical, verbal/nonverbal cueing, setup/clean-up)? No. CHAIR/[id number] TRANSFER - STEP 2: Does the patient need only setup/clean-up assistance from one helper? No. CHAIR/[id number] TRANSFER - STEP 3: Does the patient need only verbal/nonverbal cueing or touching/steadying/contact guard assistance fro m one helper? No. CHAIR/[id number] TRANSFER - STEP 4: Does the patient need physical assistance - for example lifting or trunk support from one helper - wi th the helper providing less than half of the effort? Yes. 1. [id number] ADMISSION PERFORMANCE: Partial/moderate assistance CODE: 03 TRANSFER TOILET: TOILET TRANSFER - STEP 1: Does the patient complete the activity by him/herself with no assistance (physical, verbal/nonverbal cueing, setup/clean-up)? No. TOILET TRANSFER - STEP 2: Does the patient need only setup/clean-up assistance from one helper? No. TOILET TRANSFER - STEP 3: Does the patient need only verbal/nonverbal cueing or touching/steadying/contact guard assistance fro m one helper? Yes. 1. [id number] ADMISSION PERFORMANCE: Supervision or touching assistance CODE: 04 TRANSFERS: CAR: Not assessed/no information CODE: - WALK 10 FEET: Not assessed/no information CODE: - 1 STEP (CURB): Not assessed/no information CODE: - PICKING UP OBJECT: Not assessed/no information CODE: - DOES THE PATIENT USE A WHEELCHAIR/SCOOTER? CODE: EXPR WHEEL 50 FEET WITH TWO TURNS: Not assessed/no information CODE: - INDICATE THE TYPE OF WHEELCHAIR/SCOOTER USED: CODE: EXPR WHEEL 150 FEET: Not assessed/no information CODE: - INDICATE THE TYPE OF WHEELCHAIR/SCOOTER USED: CODE: EXPR BLADDER AND BOWEL: H350. BLADDER CONTINENCE (3-DAY ASSESSMENT PERIOD): Always continent (no documented incontinence) CODE: 0 H400. BOWEL CONTINENCE (3-DAY ASSESSMENT PERIOD): Always continent CODE: 0 SIGNATURE PANEL: The following modified sections: 1. [id number] Admission Performance, 1. [id number] Admission Performance, 1. WA3078L Admission Performance, 1. [id number] Admission Performance, 1. [id number] Admission Performance, 1. EN7677E Admission Performance, 1. NL0838V Admission Performance, 1. [id number] Admission Performance , 1. [id number] Admission Performance, 1. [id number] Admission Performance, Code, H350. Bladder Continence (3-day assessment period), H400. Bowel Continence (3-day assessment period) were [electronically] sig will by Julio Marin on MonJun 20 2019 09:29:29 T-0600 (Central Standard Time)
[2019-06-20] MEDS: LIDOCAINE 4% PATCH TOP SCH (09:37)
[2019-06-20] MEDS: RIVAROXABAN 15 MG TABLET PO SCH (17:18)
--- NOTE | 2019-06-20 17:21 | R.PN ---
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 Pt denied any Shortness of Breath. Ambulated 300' with standby assistance using a rolling walker. Self-propelled wheelchair 300' with st andby assistance. WBC 6.4, Hgb 10.1, prealbumin 22.5, K+ 3.4. Will increase K+ to 10 meq TID. VITAL SIGNS Temperature: 98 F SBP/DBP: 120/64 Pulse: 74 Resp: 14 MEDICATION ALLERGIES: Codeine Opioids ENVIRONMENTAL ALLERGIES: None Known - Substance Allergies None Known - Other Allergies None Known NURSING: - Shower allowing shower ACTIVITIES OOB only with supervision THERAPIES: - Dietary and Nutrition Adequate Nutrition. Nutritional Education. Nutritional Supplements. PHYSICAL EXAM - Gen Alert and awake Lying in bed No apparent distress Oriented to: person, time, and place - Skin No skin breakdown. Normacephalic - Eyes No abnormalities - ENMT No abnormalities - Neck No abnormalities - CVS RRR - Chest No abnormalities - Resp No wheezing - Abd Soft - GI Non distended Deferred - No abnormalities - Ext Mild bilateral lower extremity edema. - MSK 4+/5 weakness in both lower extremities. - Neuro No focal deficits - Psych No abnormalities ASSESSMENT: Pt. is a 84 yo Right-handed white female.On 06/06/2019 she was admitted to [facility] with diagnosis CHF Exacerbation.Her impairment category is Cardiac 09 - Cardiac Disorders (09 ).Pre-morbidly, Pt. was independent/mod-I in Locomotion, Safety Awareness, Balance, Social Cognition, Transfers Control, Sphincter Control, Self-Care, Communication, and Endurance; and she had good [place] motion, Safety Awareness, Balance, Social Cognition, Transfers Control, Sphincter Control, Self-Care, Communication, and Endurance.Currently, she has deficits of Locomotion, Safety Awareness, Balance, S ocial Cognition, Transfers Control, Self-Care, Communication, and Endurance.Pt. is now referred to [facility] for acute in-patient rehabilitation in order to maximize patient's fu nctional independence in activities of daily living, strength, ROM, and mobility.- Rehab Goal Patient has realistic goal of being discharged at assistance level 6-Radha to reside at Home with Att endant. MDM/PLAN: - Physical Therapy Gait dysfunction - to improve, our physical therapists will perform initial evaluation of pt's statu s upon admission and devise an individualized program for Gait Training, and Wheel Chair mobility Inability to transfer - to improve, our physical therapists will perform initial evaluation of pt's status upon admission and devise an individualized program for Bed mobility Need for home safety evaluation - to improve, our physical therapists will perform initial evaluatio n of pt's status upon admission and devise an individualized program for Home Evaluation Need in caregiver upon discharge - to improve, our physical therapists will perform initial evaluati on of pt's status upon admission and devise an individualized program for Caregiver Training Edema - to improve, our physical therapists will perform initial evaluation of pt's status upon admi ssion and devise an individualized program for Elevation Training, and Lymphedema Therapy New precaution - to improve, our physical therapists will perform initial evaluation of pt's status upon admission and devise an individualized program for Patient precaution education Poor balance - to improve, our physical therapists will perform initial evaluation of pt's status up on admission and devise an individualized program for Balance Training Poor endurance - to improve, our physical therapists will perform initial evaluation of pt's status upon admission and devise an individualized program for Endurance Training Weakness - to improve, our physical therapists will perform initial evaluation of pt's status upon a dmission and devise an individualized program for Aquatic Therapy, Neuromuscular Reeducation, and Str engthening Achieving independence - to improve, our physical therapists will perform initial evaluation of pt's status upon admission and devise an individualized program for Community Reintegration Activities - Occupational Therapy ADL deficits - to improve, our occupation therapists will perform initial evaluation of pt's status upon admission and devise an individualized program for Bathing, Bed mobility, Community Reintegratio n, Cooking, Dressing, Eating, Fine Motor Skills, Grooming, Homemaking, Kitchen Mobility, Laundry, Pat ient Education, Safety Awareness, Splinting - Positioning, Transfers(Toilet, Tub, Shower), and Wheel Chair Management Cognitive deficits - to improve, our occupation therapists will perform initial evaluation of pt's s tatus upon admission and devise an individualized program for Cognition - orientation Need for healthcare social worker - to improve, our occupation therapists will perform initial evaluation of pt's status upon admission and devise an individualized program for Caregiver Training Weakness - to improve, our occupation therapists will perform initial evaluation of pt's status upon admission and devise an individualized program for Aquatic Therapy, Balance, Endurance, UE ROM, and UE strengthening - Other See attached MAR (Medication Administration Record) - Diet Type Continue Regular - Diet - Liquid Texture Continue Regular - Tube Feed Continue N/A - Diet - Solid Texture Continue Regular Continue Mechanical Soft - Shower allowing shower FUNCTIONAL STATUS: UPDATED AT WEEKLY TEAM CONFERENCE - Bladder Same accident frequency: 7-Ind - No accidents in the past 7 days - Bowel Same accident frequency: 7-Ind - No accidents in the past 7 days - Walking Same score based on distance walked: 0(N/A) Same score based on distance walked: 2(50-149ft) - Wheelchair Same score based on distance traveled: 0(N/A) Same score based on distance traveled: 2(50-149ft) FUNCTIONAL STATUS: - Self-Care A. Eating Ind B. Grooming Radha C. Bathing modA D. Dressing - Upper modA E. Dressing - Lower modA F. Toileting Maria Isabel - Sphincter Control G. Bladder control Maria Isabel H. Bowel control Maria Isabel - Transfers Control I. Bed/Chair/Wheelchair modA J. Toilet modA K. Tub/Shower maxA - Locomotion L. Walk/Wheelchair (B) modA M. Stairs maxA - Communication N. Comprehension (B) sup O. Expression (B) sup - Social Cognition P. Social Interaction Radha Q. Problem Solving sup R. Memory sup - Endurance Fair - Balance Fair - Safety Awareness Good QI SCORES: - Self-Care A. Eating 05-Setup or clean-up assistance B. Oral hygiene 05-Setup or clean-up assistance C. Toileting hygiene 02-Substantial/maximal assistance E. Shower/bathe self 03-Partial/moderate assistance F. Upper body dressing 03-Partial/moderate assistance G. Lower body dressing 02-Substantial/maximal assistance H. Putting on/taking off footwear 02-Substantial/maximal assistance - Mobility C. Lying to sitting on side of bed 03-Partial/moderate assistance B. Sit to lying 03-Partial/moderate assistance D. Sit to stand 03-Partial/moderate assistance E. Chair/eyo-rc-rwlng transfer 03-Partial/moderate assistance F. Toilet transfer 03-Partial/moderate assistance G. Car transfer 10-Not attempted due to environmental limitations I. Walk 10 feet 04-Supervision or touching assistance J. Walk 50 feet with two turns 88-Not attempted due to medical condition or safety concerns K. Walk 150 feet 88-Not attempted due to medical condition or safety concerns L. Walking 10 feet on uneven surfaces 88-Not attempted due to medical condition or safety concerns M. 1 step (curb) 88-Not attempted due to medical condition or safety concerns N. 4 steps 88-Not attempted due to medical condition or safety concerns O. 12 steps 88-Not attempted due to medical condition or safety concerns P. Picking up object 88-Not attempted due to medical condition or safety concerns R. Wheel 50 feet with two turns 88-Not attempted due to medical condition or safety concerns S. Wheel 150 feet 02-Substantial/maximal assistance - Bladder and Bowel Bladder continence 3-Incontinent daily Bowel continence 0-Always continent - Endurance Poor - Balance Fair - Safety Awareness Fair CURRENT FUNC. 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
[2019-06-20] MEDS: ONDANSETRON 4 MG (ODT) TAB PO PRN (18:45)
[2019-06-20] MEDS: MELATONIN 5 MG TABLET PO SCH (18:46)
[2019-06-20] MEDS: TRAZODONE 50 MG TABLET PO SCH (18:46)
[2019-06-20] MEDS: DOCUSATE NA/SENNA CONC 1 TAB PO PRN (18:46)
[2019-06-21] MEDS: ACETAMINOPHEN 325 MG TABLET PO PRN ×4 (01:49→20:05)
[2019-06-21] MEDS: METOPROLOL TAR 25 MG TAB PO SCH ×2 (05:43→17:14)
[2019-06-21] MEDS: LEVOTHYROXINE SOD 0.075 MG TAB PO SCH (06:32)
[2019-06-21] MEDS: PANTOPRAZOLE 40MG TABLET PO SCH (06:33)
[2019-06-21] MEDS: LIDOCAINE 4% PATCH TOP SCH (07:13)
[2019-06-21] MEDS: ARFORMOTEROL TARTRATE 15 MCG/2 ML VIAL.NEB NEB SCH ×2 (07:55→20:45)
[2019-06-21] MEDS: CRANBERRY FRUIT EXTRACT 200 MG CAP PO SCH ×2 (08:21→20:01)
[2019-06-21] MEDS: LIDOCAINE VISCOUS 2% SOLN 15 ML UDC MM SCH ×3 (08:21→20:04)
[2019-06-21] MEDS: acetaZOLAMIDE 250 MG TAB PO SCH (08:21)
[2019-06-21] MEDS: PRAMIPEXOLE 1 MG TAB PO SCH (08:21)
[2019-06-21] MEDS: FUROSEMIDE 40 MG TABLET PO SCH ×2 (08:22→17:15)
[2019-06-21] MEDS: POTASSIUM CL SA 10 MEQ TAB PO SCH ×3 (08:22→20:01)
[2019-06-21] MEDS: FE SULF/FA/VIT B COMP & C TAB PO SCH (08:22)
[2019-06-21] MEDS: GABAPENTIN 100 MG CAP PO SCH ×2 (08:22→20:01)
[2019-06-21] MEDS: VENLAFAXINE HCL 37.5 MG TAB PO SCH (08:22)
[2019-06-21] MEDS: levoFLOXacin 500 MG TAB PO SCH (08:22)
[2019-06-21] MEDS: CLOTRIMAZOLE 1% CREAM 15 GM TOP SCH ×2 (08:23→20:05)
[2019-06-21] MEDS: CLOPIDOGREL 75 MG TABLET PO SCH (08:23)
[2019-06-21] MEDS: PROMOD 30 ML DOSE PO SCH ×2 (08:24→20:04)
--- NOTE | 2019-06-21 09:18 | P.RH.PN ---
Estimated Length of Stay: 11 Expected Discharge Date: 06/23/19 Discharge Disposition Plan: Home Family Support: Yes Nursing Home Goal: Mobility, Transfers, Self Care Vital Signs: Last Vital Signs Temp 96.8 F 06/21/19 06:50 Pulse 70 06/21/19 08:22 Resp 16 06/21/19 06:50 BP 125/58 L 06/21/19 08:22 Pulse Ox 94 06/21/19 06:50 Laboratory: Laboratory Last Values WBC 6.4 K/uL (4.3-10.9) D 06/19/19 05:48 RBC 3.29 M/uL (3.86-4.86) L 06/19/19 05:48 Hgb 10.1 g/dL (12.0-15.0) L 06/19/19 05:48 Hct 31.2 % (36.0-45.0) L 06/19/19 05:48 MCV 94.9 fL (80-100) 06/19/19 05:48 MCH 30.6 pg (27.0-35.0) 06/19/19 05:48 MCHC 32.2 g/dL (32.0-36.0) 06/19/19 05:48 RDW 20.1 % (12.1-15.2) H 06/19/19 05:48 Plt Count 296 K/uL (152-406) 06/19/19 05:48 MPV 7.8 fL (7.6-11.3) 06/19/19 05:48 Neutrophils % 71.4 % (41.7-73.7) 06/19/19 05:48 Lymphocytes % 17.6 % (15.3-44.8) 06/19/19 05:48 Monocytes % 8.5 % (3.3-12.3) 06/19/19 05:48 Eosinophils % 1.3 % (0-4.4) 06/19/19 05:48 Basophils % 1.2 % (0-1.3) 06/19/19 05:48 Absolute Neutrophils 4.6 K/uL (1.8-8.0) 06/19/19 05:48 Segmented Neutrophils 73 % (40-80) 06/19/19 05:48 Absolute Lymphocytes 1.1 K/uL (0.7-4.9) 06/19/19 05:48 Lymphocytes 18 % (15-42) 06/19/19 05:48 Monocytes 9 % (0-10) 06/19/19 05:48 Absolute Monocytes 0.5 K/uL (0.1-1.3) 06/19/19 05:48 Absolute Eosinophils 0.1 K/uL (0-0.5) 06/19/19 05:48 Absolute Basophils 0.1 K/uL (0-0.5) 06/19/19 05:48 Anisocytosis 1+ 06/19/19 05:48 Morphology Comment Noted (NOT SEEN) 06/19/19 05:48 Sodium 142 mmol/L (136-145) 06/19/19 05:48 Potassium 3.4 mmol/L (3.5-5.1) L 06/19/19 05:48 Chloride 106 mmol/L (98-107) 06/19/19 05:48 Carbon Dioxide 29 mmol/L (21-32) 06/19/19 05:48 BUN 17 mg/dL (7-18) 06/19/19 05:48 Creatinine 1.45 mg/dL (0.55-1.3) H 06/19/19 05:48 Estimated GFR 34 mL/min (=/>90) L 06/19/19 05:48 Glucose 138 mg/dL (74-106) H 06/19/19 05:48 Calcium 9.1 mg/dL (8.5-10.1) 06/19/19 05:48 Magnesium 2.1 mg/dL (1.8-2.4) 06/19/19 05:48 Albumin 2.8 g/dL (3.4-5.0) L 06/19/19 05:48 Prealbumin 22.5 mg/dL (20-40) 06/19/19 05:48 Urine Color Yellow 06/15/19 02:50 Urine Appearance Turbid 06/15/19 02:50 Urine pH 7.5 (5.0-7.0) H 06/15/19 02:50 Ur Specific [place] 1.010 (1.005-1.030) 06/15/19 02:50 Glucose (UA)(Auto) Negative (NEG) 06/15/19 02:50 Urine Ketones Negative (NEG) 06/15/19 02:50 Urine Blood 3+ (NEG) H 06/15/19 02:50 Urine Nitrite Positive (NEG) H 06/15/19 02:50 Urine Bilirubin Negative (NEG) 06/15/19 02:50 Urine Urobilinogen 1.0 mg/dL (0.2-1.0) 06/15/19 02:50 Ur Leukocyte Esterase 3+ (NEG) H 06/15/19 02:50 Urine RBC Tntc /HPF (NONE SEEN) H 06/15/19 02:50 Urine WBC Tntc /HPF (<5) H 06/15/19 02:50 Ur Squamous Epith Cells <5 /HPF (NONE SEEN) 06/15/19 02:50 Urine Bacteria >50 /HPF (<20) H 06/15/19 02:50 Urine Mucus 1+ /HPF (NONE SEEN) 06/15/19 02:50 Urine Culture Reflexed Not needed 06/15/19 02:50 Urine Total Protein Trace (NEG) 06/15/19 02:50 Weight: 217 lb 11.2 oz Wound Present: No Closed Surgical Incision Present: No Negative Pressure Wound Therapy Present: No Physician Update: She is sleeping better. She walked 500' with minimum assistance using a rolling walker. K+ was low at 3.4. She is on K + 10 meq tid. Medical Issues: Patient is always incontinent with bladder and always continent with bowel. Pain Issues: Patient is taking tylenol 650mg Q4H PO PRN for pain Functional Improvement: pt presents with moderate strength deficits globally. pt exhibits poor balance and stability during ambulation and functional mobility. pt demonstrates poor trunk strength as well. pt experiences poor tolerance to functional activity due to pain, weakness, and fatigue. Skilled PT services are necessary to address the above mentioned impairments and functional limitations. Summary: Patient's care plan and group home goals have been reviewed and revised as necessary. Please see the Rehabilitation Signature page for all necessary signatures.
--- NOTE | 2019-06-21 13:23 | FAST ---
ENCOUNTER DATE AND TIME: 06/20/2019 08:00 (INSURANCE FOLLOW UP REP) NAME LINH SANDS DATE OF : 1935 DATE OF ADMISSION: 06/13/2019 15:01 (INSURANCE FOLLOW UP REP) PHONE: AGE: 84 N# [id number] GENDER: Female ENCOUNTER PHYSICIAN: Dr. Rambo De La Rosa M.D. ADMISSION DIAGNOSIS: - Cardiac 09 - Cardiac Disorders () CHF Exacerbation. ROLL LEFT AND RIGHT: Not applicable - Not attempted and the patient did not perform this activity prior to the current ill ness, exacerbation, or injury. CODE: 09 SIT TO LYING: Not applicable - Not attempted and the patient did not perform this activity prior to the current ill ness, exacerbation, or injury. CODE: 09 LYING TO SITTING: Not applicable - Not attempted and the patient did not perform this activity prior to the current ill ness, exacerbation, or injury. CODE: 09 SIT TO STAND: SIT TO STAND - STEP 1: Does the patient complete the activity by him/herself with no assistance (physical, verbal/nonverbal cueing, setup/clean-up)? No. SIT TO STAND - STEP 2: Does the patient need only setup/clean-up assistance from one helper? Yes. 1. [id number] ADMISSION PERFORMANCE: Setup or clean-up assistance CODE: 05 TRANSFERS: BED, CHAIR: CHAIR/CKD-MF-PIRAT TRANSFER - STEP 1: Does the patient complete the activity by him/herself with no assistance (physical, verbal/nonverbal cueing, setup/clean-up)? No. CHAIR/BYT-TH-FBOIA TRANSFER - STEP 2: Does the patient need only setup/clean-up assistance from one helper? Yes. 1. [id number] ADMISSION PERFORMANCE: Setup or clean-up assistance CODE: 05 TRANSFER TOILET: TOILET TRANSFER - STEP 1: Does the patient complete the activity by him/herself with no assistance (physical, verbal/nonverbal cueing, setup/clean-up)? Yes. 1. [id number] ADMISSION PERFORMANCE: Independent CODE: 06 TRANSFERS: CAR: Not assessed/no information CODE: - WALK 10 FEET: WALK 10 FEET - STEP 1: Does the patient complete the activity by him/herself with no assistance (physical, verbal/nonverbal cueing, setup/clean-up)? No. WALK 10 FEET - STEP 2: Does the patient need only setup/clean-up assistance from one helper? Yes. 1. [id number] ADMISSION PERFORMANCE: Setup or clean-up assistance CODE: 05 WALK 50 FEET: WALK 50 FEET - STEP 1: Does the patient complete the activity by him/herself with no assistance (physical, verbal/nonverbal cueing, setup/clean-up)? No. WALK 50 FEET - STEP 2: Does the patient need only setup/clean-up assistance from one helper? Yes. 1. [id number] ADMISSION PERFORMANCE: Setup or clean-up assistance CODE: 05 WALK 150 FEET: WALK 150 FEET - STEP 1: Does the patient complete the activity by him/herself with no assistance (physical, verbal/nonverbal cueing, setup/clean-up)? No. WALK 150 FEET - STEP 2: Does the patient need only setup/clean-up assistance from one helper? Yes. 1. [id number] ADMISSION PERFORMANCE: Setup or clean-up assistance CODE: 05 WALK 10 FEET UNEVEN: Not assessed/no information CODE: - 1 STEP (CURB): Not assessed/no information CODE: - PICKING UP OBJECT: Not attempted due to medical condition or safety concerns CODE: 88 DOES THE PATIENT USE A WHEELCHAIR/SCOOTER? Q1. DOES THE PATIENT USE A WHEELCHAIR/SCOOTER?: Yes CODE: 1 WHEEL 50 FEET WITH TWO TURNS: WHEEL 50 FEET WITH TWO TURNS - STEP 1: Does the patient complete the activity by him/herself with no assistance (physical, verbal/nonverbal cueing, setup/clean-up)? No. WHEEL 50 FEET WITH TWO TURNS - STEP 2: Does the patient need only setup/clean-up assistance from one helper? Yes. 1. [id number] ADMISSION PERFORMANCE: Setup or clean-up assistance CODE: 05 INDICATE THE TYPE OF WHEELCHAIR/SCOOTER USED: RR1. INDICATE THE TYPE OF WHEELCHAIR/SCOOTER USED.: Manual CODE: 1 WHEEL 150 FEET: WHEEL 150 FEET - STEP 1: Does the patient complete the activity by him/herself with no assistance (physical, verbal/nonverbal cueing, setup/clean-up)? No. WHEEL 150 FEET - STEP 2: Does the patient need only setup/clean-up assistance from one helper? Yes. 1. [id number] ADMISSION PERFORMANCE: Setup or clean-up assistance CODE: 05 INDICATE THE TYPE OF WHEELCHAIR/SCOOTER USED: SS1. INDICATE THE TYPE OF WHEELCHAIR/SCOOTER USED.: Manual CODE: 1 BLADDER AND BOWEL: CODE: EXPR CODE: EXPR SIGNATURE PANEL: The following modified sections: 1. [id number] Admission Performance, 1. [id number] Admission Performance, 1. [id number] Admission Performance, 1. [id number] Admission Performance, 1. [id number] Admission Performance, 1. [id number] Admission Performance, 1. [id number] Admission Performance, 1. [id number] Admission Performance , 1. [id number] Admission Performance, 1. [id number] Admission Performance, Q1. Does the patient use a whee lchair/scooter?, 1. [id number] Admission Performance, RR1. Indicate the type of wheelchair/scooter used. , 1. [id number] Admission Performance, Code, SS1. Indicate the type of wheelchair/scooter used. were [el ectronically] signed by Giselle Spencer PTA on MonJun 21 2019 13:23:00 T-0600 (Central Standard Time)
--- NOTE | 2019-06-21 15:24 | FAST ---
ENCOUNTER DATE AND TIME: 06/21/2019 08:00 (SALES FACILITATOR) NAME LINH SANDS DATE OF : 1935 DATE OF ADMISSION: 06/13/2019 15:01 (SALES FACILITATOR) PHONE: AGE: 84 N# [id number] GENDER: Female ENCOUNTER PHYSICIAN: Dr. Rambo De La Rosa M.D. ADMISSION DIAGNOSIS: - Cardiac 09 - Cardiac Disorders () CHF Exacerbation. EATING: Not assessed/no information CODE: - ORAL HYGIENE: ORAL HYGIENE - STEP 1: Does the patient complete the activity by him/herself with no assistance (physical, verbal/nonverbal cueing, setup/clean-up)? Yes. 1. [id number] ADMISSION PERFORMANCE: Independent CODE: 06 TOILETING HYGIENE: Not assessed/no information CODE: - BATHING: SHOWER/BATHE SELF - STEP 1: Does the patient complete the activity by him/herself with no assistance (physical, verbal/nonverbal cueing, setup/clean-up)? No. SHOWER/BATHE SELF - STEP 2: Does the patient need only setup/clean-up assistance from one helper? No. SHOWER/BATHE SELF - STEP 3: Does the patient need only verbal/nonverbal cueing or touching/steadying/contact guard assistance fro m one helper? Yes. 1. [id number] ADMISSION PERFORMANCE: Supervision or touching assistance CODE: 04 DRESSING - UPPER BODY: DRESSING - UPPER BODY - STEP 1: Does the patient complete the activity by him/herself with no assistance (physical, verbal/nonverbal cueing, setup/clean-up)? Yes. 1. [id number] ADMISSION PERFORMANCE: Independent CODE: 06 DRESSING - LOWER BODY: DRESSING - LOWER BODY - STEP 1: Does the patient complete the activity by him/herself with no assistance (physical, verbal/nonverbal cueing, setup/clean-up)? No. DRESSING - LOWER BODY - STEP 2: Does the patient need only setup/clean-up assistance from one helper? No. DRESSING - LOWER BODY - STEP 3: Does the patient need only verbal/nonverbal cueing or touching/steadying/contact guard assistance fro m one helper? Yes. 1. [id number] ADMISSION PERFORMANCE: Supervision or touching assistance CODE: 04 PUTTING ON/TAKING OFF FOOTWEAR: FOOTWEAR - STEP 1: Does the patient complete the activity by him/herself with no assistance (physical, verbal/nonverbal cueing, setup/clean-up)? No. FOOTWEAR - STEP 2: Does the patient need only setup/clean-up assistance from one helper? No. FOOTWEAR - STEP 3: Does the patient need only verbal/nonverbal cueing or touching/steadying/contact guard assistance fro m one helper? Yes. 1. [id number] ADMISSION PERFORMANCE: Supervision or touching assistance CODE: 04 DOES THE PATIENT USE A WHEELCHAIR/SCOOTER? CODE: EXPR INDICATE THE TYPE OF WHEELCHAIR/SCOOTER USED: CODE: EXPR INDICATE THE TYPE OF WHEELCHAIR/SCOOTER USED: CODE: EXPR BLADDER AND BOWEL: CODE: EXPR CODE: EXPR SIGNATURE PANEL: The following modified sections: 1. [id number] Admission Performance, 1. [id number] Admission Performance, 1. GP5276e Admission Performance, 1. FT5347a Admission Performance, 1. [id number] Admission Performance were [electronically] signed by MAXIMO Looney on MonJun 21 2019 15:23:10 GMT-0600 (Central Standard Time)
[2019-06-21] MEDS: RIVAROXABAN 15 MG TABLET PO SCH (17:15)
[2019-06-21] MEDS: MELATONIN 5 MG TABLET PO SCH ×2 (20:01→21:00)
[2019-06-21] MEDS: TRAZODONE 50 MG TABLET PO SCH (20:02)
[2019-06-21] MEDS: DOCUSATE NA/SENNA CONC 1 TAB PO SCH (20:02)
[2019-06-22] MEDS: METOPROLOL TAR 25 MG TAB PO SCH ×2 (05:36→16:56)
[2019-06-22] MEDS: PANTOPRAZOLE 40MG TABLET PO SCH (06:41)
[2019-06-22] MEDS: LEVOTHYROXINE SOD 0.075 MG TAB PO SCH (06:42)
[2019-06-22] MEDS: LIDOCAINE 4% PATCH TOP SCH (06:42)
[2019-06-22] MEDS: CLOTRIMAZOLE 1% CREAM 15 GM TOP SCH ×2 (06:45→19:33)
[2019-06-22] MEDS: ARFORMOTEROL TARTRATE 15 MCG/2 ML VIAL.NEB NEB SCH ×2 (07:36→20:55)
[2019-06-22] MEDS: ACETAMINOPHEN 325 MG TABLET PO PRN ×2 (08:04→19:45)
[2019-06-22] MEDS: LIDOCAINE VISCOUS 2% SOLN 15 ML UDC MM SCH ×2 (08:04→19:34)
[2019-06-22] MEDS: POTASSIUM CL SA 10 MEQ TAB PO SCH ×3 (08:05→20:53)
[2019-06-22] MEDS: VENLAFAXINE HCL 37.5 MG TAB PO SCH (08:05)
[2019-06-22] MEDS: PRAMIPEXOLE 1 MG TAB PO SCH (08:05)
[2019-06-22] MEDS: CLOPIDOGREL 75 MG TABLET PO SCH (08:05)
[2019-06-22] MEDS: GABAPENTIN 100 MG CAP PO SCH ×2 (08:05→19:33)
[2019-06-22] MEDS: CRANBERRY FRUIT EXTRACT 200 MG CAP PO SCH ×2 (08:05→19:33)
[2019-06-22] MEDS: acetaZOLAMIDE 250 MG TAB PO SCH (08:05)
[2019-06-22] MEDS: FE SULF/FA/VIT B COMP & C TAB PO SCH (08:05)
[2019-06-22] MEDS: PROMOD 30 ML DOSE PO SCH ×2 (08:06→19:34)
[2019-06-22] MEDS: FUROSEMIDE 40 MG TABLET PO SCH ×2 (08:06→16:55)
[2019-06-22] MEDS: AYR NASAL SALINE DROPS NAS PRN (13:00)
[2019-06-22] MEDS: RIVAROXABAN 15 MG TABLET PO SCH (16:56)
[2019-06-22] MEDS ORDERED: clonazePAM 0.5 MG TAB PO PRN (17:08)
[2019-06-22] MEDS: DOCUSATE NA/SENNA CONC 1 TAB PO SCH (20:54)
[2019-06-22] MEDS: TRAZODONE 50 MG TABLET PO SCH (20:54)
[2019-06-22] MEDS: MELATONIN 5 MG TABLET PO SCH (22:39)
[2019-06-23] MEDS: ACETAMINOPHEN 325 MG TABLET PO PRN ×2 (03:29→08:11)
[2019-06-23] MEDS: AYR NASAL SALINE DROPS NAS PRN (03:30)
[2019-06-23] MEDS: METOPROLOL TAR 25 MG TAB PO SCH (05:45)
[2019-06-23] MEDS: LEVOTHYROXINE SOD 0.075 MG TAB PO SCH (05:45)
[2019-06-23 06:10] VITALS: BMI 34.9
[2019-06-23] MEDS: LIDOCAINE 4% PATCH TOP SCH (06:39)
[2019-06-23] MEDS: PANTOPRAZOLE 40MG TABLET PO SCH (06:39)
[2019-06-23] MEDS: CLOTRIMAZOLE 1% CREAM 15 GM TOP SCH (07:01)
[2019-06-23] MEDS: LIDOCAINE VISCOUS 2% SOLN 15 ML UDC MM SCH (08:09)
[2019-06-23] MEDS: CRANBERRY FRUIT EXTRACT 200 MG CAP PO SCH (08:09)
[2019-06-23] MEDS: PRAMIPEXOLE 1 MG TAB PO SCH (08:10)
[2019-06-23] MEDS: VENLAFAXINE HCL 37.5 MG TAB PO SCH (08:10)
[2019-06-23] MEDS: FUROSEMIDE 40 MG TABLET PO SCH (08:11)
[2019-06-23] MEDS: POTASSIUM CL SA 10 MEQ TAB PO SCH ×2 (08:11→13:00)
[2019-06-23] MEDS: acetaZOLAMIDE 250 MG TAB PO SCH (08:11)
[2019-06-23] MEDS: CLOPIDOGREL 75 MG TABLET PO SCH (08:12)
[2019-06-23] MEDS: GABAPENTIN 100 MG CAP PO SCH (08:12)
[2019-06-23] MEDS: FE SULF/FA/VIT B COMP & C TAB PO SCH (08:12)
[2019-06-23 08:13] VITALS: BP 121/58
[2019-06-23] MEDS: PROMOD 30 ML DOSE PO SCH (08:13)
[2019-06-23 08:31] VITALS: TEMP 97
[2019-06-23] MEDS ORDERED: MAGNESIUM CITRATE 300 ML BOT PO PRN (08:38)
[2019-06-23] MEDS: ARFORMOTEROL TARTRATE 15 MCG/2 ML VIAL.NEB NEB SCH (09:12)
[2019-06-23 09:36] VITALS: O2SAT 96
== END 2019-06-23 14:10 | DRG 292 ==
LOC: 5TH 15:01
PROVIDERS: ADMIT Psychiatry & Neurology Neurology with Special Qualifications in Child Neurology; ATTEND Psychiatry & Neurology Neurology with Special Qualifications in Child Neurology
DX: I50.33 Acute on chronic diastolic (congestive) heart failure (principal); I48.20 Chronic atrial fibrillation, unspecified; G99.0 Autonomic neuropathy in diseases classified elsewhere; I11.0 Hypertensive heart disease with heart failure; G25.81 Restless legs syndrome; I25.10 Atherosclerotic heart disease of native coronary artery without angina pectoris; E03.9 Hypothyroidism, unspecified; F32.89 Other specified depressive episodes; R53.81 Other malaise; I25.2 Old myocardial infarction
CPT/HCPCS: 36415; 80048; 81001; 82040; 83735; 84132; 84134; 85025; 87077; 87086; 87088; 87186; 92523; 94660; 97110; 97116; 97127; 97161; 97165; 97530; 97542; J7605

== ENCOUNTER 2019-11-29 11:21 | Observation (INO) | payer OTHER ==
--- OUTSIDE RECORDS SUMMARY | 2019-11-29 11:23 | XMS REPORT | Clinical Summary ---
:1935 Author Organization [facility] Address [address] [place] [address] Care Team Providers Name Role Phone MD Jose Ramon Primary Care Provider Allergies Active Allergy Reactions Severity Noted Date Comments Codeine Rash Medium 06/29/2018 Medications Medication Sig Dispensed Refills Start Date End Date Status lisinopril-hydrochlorot Take 1 tablet by 0 Active hiazide mouth daily. (PRINZIDE,ZESTORETIC) 20-25 mg per tablet pramipexole (MIRAPEX) Take 0.5 mg by 0 Active 0.5 MG tablet mouth nightly. rivaroxaban (XARELTO) Take 15 mg by 0 Active 15 mg tablet mouth every morning. venlafaxine XR Take 150 mg by 0 Active (EFFEXOR-XR) 150 MG 24 mouth every hr capsule morning. levothyroxine Take 150 mcg by 0 Active (SYNTHROID, LEVOXYL) mouth every 150 mcg tablet morning. furosemide (LASIX) 40 Take 40 mg by 0 Active mg tablet mouth daily as needed. traMADol (ULTRAM) 50 mg Take 50 mg by 0 Active tablet mouth every 6 (six) hours as needed for moderate pain. Active Problems Problem Noted Date Complication of internal left hip prosthesis 9 Closed fracture of left hip 06/29/2018 Encounters Date Type Specialty Care Team Description 01/14/2019 Intake Access after 11/28/2018 Social History Tobacco Use Types Packs/Day Years [...] six or more drinks on one occasion? No t asked Sex Assigned at Date Recorded Not on file Job Start Date Occupation Industry Not on file Not on file Not on file Travel History Travel Start Travel End No recent travel history available. Last Filed Vital Signs Not on file Plan of Treatment Health Maintenance Due Date Last Done Comments SHINGLES VACCINES (#1) 1985 65+ PNEUMOCOCCAL VACCINE (1 of 2 - PCV13) 02/25/2000 INFLUENZA VACCINE 12/07/2019 Implants Implanted Type Area Recruitment Specialist Device Shelf Model / Identifier Expiration Serial / Date Lot Kit Scr Intrlkng 90mm Lag 85mm Comp Intertan - [id number] Hip Delmis int Left: EDIL CABRALES [id number] / Implanted: Qty: 1 on 06/30/2018 by Jason Harrington MD at [facility] Implants Hip NEPHEW / ORTHOPEDICS Trigen Low Profile Screw 5.0mm X 40mm - [id number] IPM IMPLANT Left: [employer] NEPHSUKUMAR [id number] / Implanted: Qty: 1 on 06/30/2018 by Jason Harrington MD at [facility] DEVICES Hip ORTHOPAEDICS / Intertan 1.5 [id number] 125d Lt - [id number] IPM IMPLANT Left: SOL[employer] NEPHSUKUMAR 08/19/2024 [id number] / Implanted: Qty: 1 on 06/30/2018 by Jason Harrington MD at [facility] DEVICES Hip ORTHOPAEDICS / [id number] Results Not on fileafter 11/28/2018 Insurance Payer Benefit Plan / Subscriber ID Effective Dates Phone Addre ss Type Group MEDICARE MEDICARE PART A AND xxxxxxxxxxx 2000-Ryan [place] Medicare B nt AETNA [facility] 2013-Nat wu Advance Directives For more information, please contact: [phone] Type Date Recorded 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
--- NOTE | 2019-11-29 13:11 | RAD REPORT ---
EXAM DESCRIPTION: Bab[place] Single View11/29/2019 12:53 pm CLINICAL HISTORY: Chest pain COMPARISON: June 2019 FINDINGS: The lungs appear clear of acute infiltrate. The heart is mildly to moderately enlarged. Pacemaker leads are in place. IMPRESSION: No acute abnormalities displayed
[2019-11-29 13:30] LABS: Protime INR 1.66
[2019-11-29 13:31] LABS: Absolute Lymphocytes (CBC) 0.9 K/uL (0.7-4.9); Basophils % 0.9 % (0-1.3); Hematocrit 34.2 % (36.0-45.0); Lymphocytes % 10.3 % (15.3-44.8); RBC Red Blood Cell Count 3.27 M/uL (3.86-4.86)
[2019-11-29 13:57] LABS: ALT/SGPT 30 U/L (12-78); AST/SGOT 32 U/L (15-37); Albumin 3.3 g/dL (3.4-5.0); Alkaline Phosphatase 159 U/L (45-117); BUN Blood Urea Nitrogen 29 mg/dL (7-18); Bicarbonate 30 mmol/L (21-32); Bilirubin Direct 0.3 mg/dL (0-0.2); Bilirubin Total 0.6 mg/dL (0.2-1.0); Glucose Level 128 mg/dL (74-106); Magnesium 2.5 mg/dL (1.8-2.4); NT PRO-BNP 4170 pg/mL (<450); Potassium 3.9 mmol/L (3.5-5.1); Protein, Total 8.5 g/dL (6.4-8.2); Sodium Level 143 mmol/L (136-145); Troponin (Emerg Dept Use Only) < 0.02 ng/mL (0.0-0.045)
--- NOTE | 2019-11-29 15:46 | RAD REPORT ---
EXAM DESCRIPTION: CT - Chest Abd Pelvis Wo Con - 11/29/2019 3:22 pm CLINICAL HISTORY: Shortness of breath/abdominal pain/back pain COMPARISON: CT abdomen 2019 TECHNIQUE: Computed axial tomography of the chest, abdomen and pelvis was obtained. Oral contrast wa s given. IV contrast was not requested. All CT scans are performed using dose optimization technique as appropriate and may include automated exposure control or mA/KV adjustment according to patient size. FINDINGS: The evaluation of mediastinum, bakari, vessels and solid organs is limited secondary to the lack of IV contrast administration Calcified mediastinal and calcified hilar lymph nodes Minimal right pleural effusion. . A pericardial effusion is not seen. A 6 millimeter left lower lobe nodule is unchanged. Calcified granuloma right lung. Mild areas of sca rring within the lungs. Hepatic and splenic granulomata. Cholecystectomy There is no evidence of diverticulitis Minimal ascites Pancreas, adrenals and kidneys appear grossly normal There is no evidence of diverticulitis. Mild spondylosis involves the lumbar spine IMPRESSION: 6 millimeter left lower lobe nodule stable from the prior exam Minimal ascites
--- NOTE | 2019-11-29 16:12 | EDPHYS ---
Physician Documentation [facility] Name: Coco Melton Age: 84 yrs Sex: Female : 1935 Arrival Date: 11/29/2019 Time: 11:38 Bed 8 Private MD: ED Physician Ezequiel Soto HPI: 11/28 19:35 This 84 yrs old Female presents to ER via EMS with complaints of Shortness Of kdr Breath \T\ low back pain. 19:35 The patient has shortness of breath at rest. Onset: The symptoms/episode began/occurred kdr at an unknown time. Duration: The symptoms are continuous, and are steadily getting worse. The patient's shortness of breath is aggravated by exertion, light activity, Movement. Associated signs and symptoms: Pertinent positives: SOB and Low back pain. Severity of symptoms: At their worst the symptoms were moderate in the emergency department the symptoms are unchanged. It is unknown whether or not the patient has had similar symptoms in the past. The patient was sent fro the assisted after they had called Dr. Albright. He instructed them to come to the ED for evaluation. The reported cc was SOB. The patient, though appearing SOB and tachypneic denies difficulty breathing. Her only c/o is worsening low back pain which is made worse by her breathing. Historical: - Allergies: 11:40 Codeine; bp - PMHx: 11:40 Anxiety; Arthritis; Hypertension; Hypothyroidism; neuropathy; bp - Immunization history:: Adult Immunizations up to date. - Social history:: Smoking status: Patient denies any tobacco usage or history of. ROS: 19:35 Constitutional: Negative for fever, chills, and weight loss, Eyes: Negative for injury, kdr pain, redness, and discharge, Neck: Negative for injury, pain, and swelling, Cardiovascular: Negative for chest pain, palpitations, and edema, Respiratory: Negative for shortness of breath, cough, wheezing, and pleuritic chest pain, Abdomen/GI: Negative for abdominal pain, nausea, vomiting, diarrhea, and constipation, : Negative for injury, bleeding, discharge, and swelling, MS/Extremity: Negative for injury and deformity, Skin: Negative for injury, rash, and discoloration, Psych: Negative for depression, anxiety, suicide ideation, homicidal ideation, and hallucinations, Allergy/Immunology: Negative for hives, rash, and allergies, Endocrine: Negative for neck swelling, polydipsia, polyuria, polyphagia, and marked weight changes, Hematologic/Lymphatic: Negative for swollen nodes, abnormal bleeding, and unusual bruising. 19:35 Back: Positive for pain at rest, pain with movement, of the low back area and left low back. 19:35 Neuro: Positive for altered mental status, dizziness, weakness, Confusion. Exam: 19:35 Constitutional: This is a well developed, well nourished patient who is awake, alert, kdr and in no acute distress. Head/Face: Normocephalic, atraumatic. Eyes: Pupils equal round and reactive to light, extra-ocular motions intact. Lids and lashes normal. Conjunctiva and sclera are non-icteric and not injected. Cornea within normal limits. Periorbital areas with no swelling, redness, or edema. Neck: Trachea midline, no thyromegaly or masses palpated, and no cervical lymphadenopathy. Supple, full range of motion without nuchal rigidity, or vertebral point tenderness. No Meningismus. Chest/axilla: Normal chest wall appearance and motion. Nontender with no deformity. No lesions are appreciated. Cardiovascular: Regular rate and rhythm with a normal S1 and S2. No gallops, murmurs, or rubs. Normal PMI, no JVD. No pulse deficits. 19:35 Respiratory: mild respiratory distress is noted, Respirations: labored breathing, that is mild, tachypnea, Breath sounds: rales, that are mild, are scattered, are located in both bases, are heard diffusely. 19:35 Abdomen/GI: Inspection: obese Bowel sounds: active, Palpation: soft, nontender. 19:35 Back: pain, that is mild, that is moderate, of the low back area, ROM is painful, normal spinal alignment noted, CVA tenderness, is absent. Vital Signs: 11:38 BP 147 / 83; Pulse 70; Resp 22; Temp 98.1; Pulse Ox 96% on 2 lpm NC; bp 12:00 BP 172 / 81; Pulse 70; Resp 17; Pulse Ox 100% on 2 lpm NC; bp 12:54 BP 166 / 96; Pulse 71; Resp 16; Pulse Ox 100% ; bp 14:26 BP 142 / 71; Pulse 70; Resp 17; Pulse Ox 91% on R/A; bp 15:05 BP 157 / 92; Pulse 70; Resp 20; Pulse Ox 97% on 2 lpm NC; jr10 16:00 BP 167 / 100; Pulse 70; Resp 16; Pulse Ox 100% ; bp 17:00 BP 168 / 84; Pulse 71; Resp 15; Pulse Ox 98% 2 lpm ; bp 18:00 BP 127 / 84; Pulse 70; Resp 16; Temp 98.1; Pulse Ox 97% on 2 lpm NC; bp MDM: 16:10 Patient medically screened. kdr 19:35 Data reviewed: vital signs, nurses notes, lab test result(s), radiologic studies. kdr Counseling: I had a detailed discussion with the patient and/or guardian regarding: the historical points, exam findings, and any diagnostic results supporting the discharge/admit diagnosis, lab results, radiology results, the need for further work-up and treatment in the hospital. 11/28 12:15 Order name: Basic Metabolic Panel; Complete Time: 14:47 [facility] 11/28 12:15 Order name: CBC with Diff; Complete Time: 14:47 [facility] 11/28 12:15 Order name: LFT's; Complete Time: 14:47 [facility] 11/28 12:15 Order name: Magnesium; Complete Time: 14:47 [facility] 11/28 12:15 Order name: NT PRO-BNP; Complete Time: 14:47 [facility] 11/28 12:15 Order name: PT-INR; Complete Time: 14:47 [facility] 11/28 12:15 Order name: Troponin (emerg Dept Use Only); Complete Time: 14:47 [facility] 11/28 12:15 Order name: XRAY Chest (1 view); Complete Time: 14:47 [facility] 11/28 12:15 Order name: EKG; Complete Time: 12:15 [facility] 11/28 12:15 Order name: Cardiac monitoring; Complete Time: 13:18 [facility] 11/28 12:15 Order name: EKG - Nurse/Tech; Complete Time: 13:18 [facility] 11/28 14:50 Order name: CT Chest Abdomen Pelvis W/O Contrast; Complete Time: 15:57 [facility] 11/28 17:21 Order name: CONS Physician Consult [facility] 11/28 12:15 Order name: IV Saline Lock; Complete Time: 12:53 [facility] 11/28 12:15 Order name: Labs collected and sent; Complete Time: 12:53 [facility] 11/28 12:15 Order name: O2 Per Protocol; Complete Time: 12:17 kdr 11/28 12:15 Order name: O2 Sat Monitoring; Complete Time: 12:17 kdr Administered Medications: 17:15 Drug: Tylenol 500 mg Route: PO; bp 17:48 Follow up: Response: Pain is decreased bp Disposition: 11/29/19 16:10 Hospitalization ordered by Bradley Peña for Observation. Preliminary diagnosis are Unspecified combined systolic (congestive) and diastolic (congestive) heart failure, Shortness of breath, Low back pain. - Bed requested for Telemetry/MedSurg (observation). - Status is Observation. rr5 - Condition is Fair. - Problem is an ongoing problem. - Symptoms are unchanged. Signatures: Dispatcher [employer] EDMS Ezequiel Soto MD MD [facility] Dawson Valdes, BUYER LIAISON-C BUYER LIAISON-Cla1 Ralph Luque, RN RN Patrizia Delgado Raymond, RN RN rr5 Corrections: (The following items were deleted from the chart) 17:39 16:10 Hospitalization Ordered by Bradley Peña MD for Observation. Preliminary eb diagnosis is Unspecified combined systolic (congestive) and diastolic (congestive) heart failure; Shortness of breath; Low back pain. Bed requested for Telemetry/MedSurg (observation). Status is Observation. Condition is Fair. Problem is an ongoing problem. Symptoms are unchanged. kdr 19:50 17:39 11/29/2019 16:10 Hospitalization Ordered by Bradley Peña MD for Observation. rr5 Preliminary diagnosis is Unspecified combined systolic (congestive) and diastolic (congestive) heart failure; Shortness of breath; Low back pain. Bed requested for Telemetry/MedSurg (observation). Status is Observation. Condition is Fair. Problem is an ongoing problem. Symptoms are unchanged. eb
--- NOTE | 2019-11-29 16:12 | ER ---
Nurse's Notes [facility] Name: Coco Melton Age: 84 yrs Sex: Female : 1935 Arrival Date: 11/29/2019 Time: 11:38 Bed 8 Private MD: Diagnosis: Unspecified combined systolic (congestive) and diastolic (congestive) heart failure;Shortness of breath;Low back pain Presentation: 11/28 11:38 Chief complaint: EMS states: SHORTNESS OF BREATH ON ROOM AIR AND VISUAL HALLUCINATIONS. bp Coronavirus screen: Patient denies a cough. Patient reports shortness of breath or difficulty breathing. Patient denies measured and/or subjective temperature greater than 100.4F prior to today's visit. Patient denies travel on a cruise ship or to a country the [facility] currently lists as an affected area. Patient denies contact with known and/or suspected case of COVID-19. Ebola Screen: No symptoms or risks identified at this time. Initial Sepsis Screen: Does the patient meet any 2 criteria? Altered Mental Status. No. Patient's initial sepsis screen is negative. Does the patient have a suspected source of infection? No. Patient's initial sepsis screen is negative. Risk Assessment: Do you want to hurt yourself or someone else? Patient reports no desire to harm self or others. Onset of symptoms was November 28, 2019 at 21:00. Care prior to arrival: Glucose check: 151. 11:38 Method Of Arrival: EMS: [facility] bp 11:38 Acuity: SIMONE 3 bp Triage Assessment: 11:40 General: Appears distressed, uncomfortable, Behavior is cooperative, agitated, anxious. bp Pain: Complains of pain in back. EENT: No deficits noted. Neuro: No deficits noted. Cardiovascular: No deficits noted. Respiratory: Reports shortness of breath Onset: The symptoms/episode began/occurred at an unknown time. the patient has mild shortness of breath. GI: No signs and/or symptoms were reported involving the gastrointestinal system. : No signs and/or symptoms were reported regarding the genitourinary system. Derm: No deficits noted. Musculoskeletal: No deficits noted. Historical: - Allergies: 11:40 Codeine; bp - PMHx: 11:40 Anxiety; Arthritis; Hypertension; Hypothyroidism; neuropathy; bp - Immunization history:: Adult Immunizations up to date. - Social history:: Smoking status: Patient denies any tobacco usage or history of. Screenin:46 Abuse screen: Denies threats or abuse. Denies injuries from another. Nutritional bp screening: No deficits noted. Tuberculosis screening: No symptoms or risk factors identified. Fall Risk None identified. Assessment: 11:40 General: SEE TRIAGE NOTE. Pain: Complains of pain in back. Neuro: Level of bp Consciousness is awake, alert, obeys commands, confused, Oriented to person, place, situation. Cardiovascular: Rhythm is sinus rhythm. Respiratory: Airway is patent Respiratory effort is even, unlabored, Breath sounds are coarse bilaterally. GI: No signs and/or symptoms were reported involving the gastrointestinal system. : No signs and/or symptoms were reported regarding the genitourinary system. EENT: No deficits noted. Derm: No deficits noted. Musculoskeletal: No deficits noted. 12:00 Reassessment: PT DENIES SOB AT [employer]. STATES ONLY MEDICAL CONCERN CHRONIC bp BACK PAIN. 12:54 Reassessment: ALL CURRENT ORDERS COMPLETED, RESULTS PENDING. VS STABLE ON MONITOR. bp 14:25 Reassessment: ALL CURRENT ORDERS COMPLETE, SPOKE WITH DAUGHTER. INITIAL RESULTS bp UNREMARKABLE. 15:04 Reassessment: pt noted to desat to 85% when moving around and talking, pt placed on jr10 supplemental O2 via NC at 2L at this time, denies any increased sob. Pt appears in NAD. Will continue to monitor and assess. 15:23 Reassessment: DAUGHTER, AKUA PHILLIPS [phone]. bp 16:00 Reassessment: PT REFUSING ADMIT. HOSPITALIST AT B/S TO AIRPLANE DESIGNER. bp 17:00 Reassessment: PT NOW AGREEABLE TO ADMIT. ADMIT IN PROCESS. VS STABLE. bp 18:09 Reassessment: ADMIT COMPLETE, REPORT TO ESA PRATER FOR RM 403. TRANSPORT PENDING. bp Vital Signs: 11:38 BP 147 / 83; Pulse 70; Resp 22; Temp 98.1; Pulse Ox 96% on 2 lpm NC; bp 12:00 BP 172 / 81; Pulse 70; Resp 17; Pulse Ox 100% on 2 lpm NC; bp 12:54 BP 166 / 96; Pulse 71; Resp 16; Pulse Ox 100% ; bp 14:26 BP 142 / 71; Pulse 70; Resp 17; Pulse Ox 91% on R/A; bp 15:05 BP 157 / 92; Pulse 70; Resp 20; Pulse Ox 97% on 2 lpm NC; jr10 16:00 BP 167 / 100; Pulse 70; Resp 16; Pulse Ox 100% ; bp 17:00 BP 168 / 84; Pulse 71; Resp 15; Pulse Ox 98% 2 lpm ; bp 18:00 BP 127 / 84; Pulse 70; Resp 16; Temp 98.1; Pulse Ox 97% on 2 lpm NC; bp ED Course: 11:38 Patient arrived in ED. bp 11:38 Ezequiel Soto MD is Attending Physician. kdr 11:40 Triage completed. bp 11:40 Arm band placed on. bp 11:46 Patient has correct armband on for positive identification. Bed in low position. Call bp light in reach. Side rails up X2. 11:54 Ralph Luque, RN is Primary Nurse. bp 12:50 Inserted saline lock: 22 gauge in right forearm, using aseptic technique. Blood bp collected. 12:53 XRAY Chest (1 view) In Process Unspecified. EDMS 15:24 CT Chest Abdomen Pelvis W/O Contrast In Process Unspecified. EDMS 16:09 Bradley Peña MD is Hospitalizing Provider. kdr 18:09 No provider procedures requiring assistance completed. Patient admitted, IV remains in bp place. Administered Medications: 17:15 Drug: Tylenol 500 mg Route: PO; bp 17:48 Follow up: Response: Pain is decreased bp Outcome: 16:10 Decision to Hospitalize by Provider. kdr 18:10 Admitted to Med/surg accompanied by tech, via wheelchair, room 403, with oxygen, with bp chart, Report called to ESA PRATER 18:10 Condition: stable 18:10 Instructed on the need for admit. 19:50 Patient left the ED. rr5 Signatures: Dispatcher [employer] EDMS Ezequiel Soto MD MD kdr Ralph Luque, RN RN bp Rayshawn Valdez RN RN rr5 Zaira Melchor, JOSI RN jr10 Corrections: (The following items were deleted from the chart) 19:03 18:09 Reassessment: ADMIT COMPLETE, REPORT TO ESA PRATER FOR RM 403 bp bp
[2019-11-29] MEDS ORDERED: ONDANSETRON 4 MG/2 ML VIAL IV PRN (17:12)
--- NOTE | 2019-11-29 17:25 | P.HP ---
Certification for Inpatient Patient admitted to: Observation With expected LOS: <2 Midnights Patient will require the following post-hospital care: None Practitioner: I am a practitioner with admitting privileges, knowledge of patient current condition, hospital course, and medical plan of care. Services: Services provided to patient in accordance with Admission requirements found in Title 42 Section 412.3 of the Code of Federal Regulations <Dawson Valdes - Last Filed: 11/29/19 17:26> Patient History Date of Service: 11/29/19 Reason for admission: CHF exacerbation, hypoxia History of Present Illness: 84-year-old female with medical history of atrial fibrillation, hypertension, chronic kidney disease, hyperlipidemia, CHF, CAD presents emergency department for hypoxia. Patient stated assisted-living facility was reported to be hypoxic in the 70s to 80s at the assisted living facility. Patient brought in by EMS and assessed in the emergency department. During her evaluation in the emergency department patient was found to desaturate into the high 80s when speaking or exerting herself out. Patient does have history of CHF, takes 40 mg of Lasix p.o. daily. Patient's workup in the emergency room was otherwise unremarkable. Patient's kidney function is slightly elevated and her baseline creatinine as this to today and previously around 1.4 1.5. Spoke with daughter who is power of assistant district attorney on the phone. She states that this happens when she has exacerbation from her CHF and also sometimes when she had urinary tract infection. Patient be admitted for further evaluation and management. - Past Medical/Surgical History Diabetic: No -: Hypertension -: Atrial fibrillation -: Hypothyroidism -: Depression -: Neuropathy -: RLS -: [place] -: CAD -: Appendectomy -: Cholesystectomy -: Hysterectomy -: nstemi -: fractured femur -: heart stents Psychosocial/ Personal History: Patient currently lives at assisted living facility. - Family History Father -: Heart disease Mother Notes: old age - Social History Alcohol use: No CD- Drugs: No Caffeine use: Yes [facility] <Dawson Valdes - Last Filed: 11/29/19 17:26> Date of Service: 11/30/19 <Roverto Peña - Last Filed: 11/30/19 13:13> Allergies codeine Allergy (Verified 06/19/19 06:31) Itching Opioids - Morphine Analogues Adverse Reaction (Verified 06/19/19 06:31) Hypoxia, hallucinations, confusion Home Medications: Clopidogrel Bisulfate [Plavix*] 75 mg PO DAILY tablet 06/06/19 Clotrimazole [Lotrimin 1% Cream*] 1 litzy TOP BID tube 06/06/19 Docusate/Senna [Senokot-S*] 2 tab PO BEDTIME PRN tab 06/06/19 Iron/FA/Vit B-Com W/C [Hemocyte Plus*] 1 tab PO DAILY WITH BREAKFAST tab 06/06/19 Levothyroxine [Synthroid*] 0.15 mg PO DAILYAC tablet 06/06/19 Metoprolol Tartrate [Lopressor*] 12.5 mg PO BID 6AM 6PM tab 06/06/19 Pantoprazole [Protonix Tab*] 40 mg PO DAILYAC tab 06/06/19 Pramipexole [Mirapex*] 1 mg PO DAILY tab 06/06/19 Rivaroxaban [Xarelto*] 15 mg PO DAILY AT SUPPER tablet 06/06/19 acetaZOLAMIDE [Diamox*] 250 mg PO DAILY 06/13/19 Furosemide [Lasix*] 40 mg PO BIDL #60 tab 06/23/19 Melatonin 5 mg PO BEDTIME tablet 06/23/19 Potassium Oral Tab [Klor-Con 10 mEq Tab*] 10 meq PO TID #90 tab 06/23/19 Venlafaxine HCl [Effexor*] 37.5 mg PO DAILY #30 tab 06/23/19 Acetaminophen [Tylenol Extra Strength] 1,000 mg PO TIDP PRN 11/29/19 Cranberry Fruit Extract 450 mg PO BID 11/29/19 Gabapentin [Neurontin*] 100 mg PO BID 11/29/19 Lidocaine 1 patch TOP DAILY 11/29/19 Rosuvastatin [Crestor*] 10 mg PO BEDTIME 11/29/19 Trazodone [Desyrel*] 75 mg PO BEDTIME 11/29/19 Review of Systems 10-point ROS is otherwise unremarkable Respiratory: Shortness of Breath Musculoskeletal: Back Pain <Dawson Valdes - Last Filed: 11/29/19 17:26> Physical Examination - Physical Exam General: Alert, In no apparent distress, Oriented x3 HEENT: Atraumatic, Normocephalic Neck: Supple Respiratory: Clear to auscultation bilaterally, Normal air movement Cardiovascular: Edema Capillary refill: <2 Seconds Gastrointestinal: Normal bowel sounds Musculoskeletal: No contractures, No erythema, No tenderness Integumentary: No tenderness/swelling, No erythema Neurological: Normal speech, Normal tone - Studies Laboratory Data (last 24 hrs) 11/29/19 12:50: PT 19.4 H, INR 1.66 11/29/19 12:50: WBC 8.9, Hgb 10.9 L, Hct 34.2 L, Plt Count 251 11/29/19 12:50: Sodium 143, Potassium 3.9, BUN 29 H, Creatinine 2.04 H, Glucose 128 H, Magnesium 2.5 H, Total Bilirubin 0.6, AST 32, ALT 30, Alkaline Phosphatase 159 H <Dawson Valdes - Last Filed: 11/29/19 17:26> - Studies Laboratory Data (last 24 hrs) 11/29/19 12:50: PT 19.4 H, INR 1.66 11/29/19 12:50: WBC 8.9, Hgb 10.9 L, Hct 34.2 L, Plt Count 251 11/29/19 12:50: Sodium 143, Potassium 3.9, BUN 29 H, Creatinine 2.04 H, Glucose 128 H, Magnesium 2.5 H, Total Bilirubin 0.6, AST 32, ALT 30, Alkaline Phosphatase 159 H <Roverto Peña - Last Filed: 11/30/19 13:13> Assessment and Plan - Plan Assessment Acute on chronic diastolic congestive heart failure with volume overload Atrial fibrillation on chronic anticoagulation therapy Acute on chronic chronic kidney disease Hypertension Hyperlipidemia Insomnia Hypothyroidism Plan Acute on chronic diastolic congestive heart failure with volume overload: Will be Lasix 40 mg IV twice daily. Cardiology consult in place. Will continue with daily weights and 1500 cc per day fluid restriction. Patient had echocardiogram in May that showed ejection fraction of approximately 60%. Appreciate further input from cardiology. Atrial fibrillation on chronic anticoagulation therapy: Rate controlled, continue with patient's Xarelto, Plavix. Acute on chronic chronic kidney disease: Nephrology has been consulted on this case. Will check kidney function and morning labs. Hypertension: Continue home medications Hyperlipidemia: Continue home medications Insomnia: Continue home medications Hypothyroidism: Continue home medications [facility]charge [facility]: [facility] Plan to discharge in: 24 Hours - Advance Directives Does patient have a Living Will: Yes Does patient have a Durable POA for Healthcare: Yes Critical Care: No Time Spent Managing Pts Care (In Minutes): 55 <Dawson Valdes - Last Filed: 11/29/19 17:26> Physician Review: Patient Assessed, Agree with Above Assessment and Plan Physician Review Additional Text: The patient was seen and examined Agree with the assessment and plan as documented by the LITZY <Roverto Peña - Last Filed: 11/30/19 13:13>
[2019-11-29] MEDS ORDERED: ACETAMINOPHEN 500 MG TAB ONE (17:45)
[2019-11-29 20:28] VITALS: BMI 44.9
[2019-11-29] MEDS ORDERED: MELATONIN 3 MG TABLET PO SCH (21:00)
[2019-11-29] MEDS ORDERED: GABAPENTIN 100 MG CAP PO SCH (21:00)
[2019-11-29] MEDS ORDERED: ROSUVASTATIN 10 MG TAB PO SCH (21:00)
[2019-11-29] MEDS ORDERED: TRAZODONE 50 MG TABLET PO SCH (21:00)
[2019-11-29] MEDS: METOPROLOL TAR 25 MG TAB PO SCH (21:48)
[2019-11-30 05:41] VITALS: TEMP 98.7
[2019-11-30] MEDS: METOPROLOL TAR 25 MG TAB PO SCH (05:43)
[2019-11-30] MEDS: ACETAMINOPHEN 500 MG TAB PO PRN ×2 (05:43→12:22)
[2019-11-30 06:22] LABS: Magnesium 2.4 mg/dL (1.8-2.4); Potassium 4.2 mmol/L (3.5-5.1)
[2019-11-30 06:27] LABS: Basophils % 0.7 % (0-1.3); Hematocrit 32.1 % (36.0-45.0); Lymphocytes % 10.5 % (15.3-44.8); RBC Red Blood Cell Count 3.09 M/uL (3.86-4.86)
[2019-11-30] MEDS ORDERED: LEVOTHYROXINE SOD 0.125 MG TAB PO SCH (06:30)
--- NOTE | 2019-11-30 07:30 | EKG ---
Test Date: 2019-11-29 Test Time: 13:27:44 Threat Monitoring Analyst: CUATE MEASUREMENT RESULTS: Intervals: Rate: 70 ME: QRSD: 164 QT: 496 QTc: 535 [place]: P: ME: QRS: -69 T: 98 INTERPRETIVE STATEMENTS: Electronic ventricular pacemaker Compared to ECG 05/26/2019 13:04:01 No significant changes Electronically Signed On 11-30-19 07:29:00 CDT by Luis Sommers
[2019-11-30] MEDS ORDERED: CLOPIDOGREL 75 MG TABLET PO SCH (09:00)
[2019-11-30 09:27] VITALS: BP 122/78
--- NOTE | 2019-11-30 09:56 | CON ---
Date of Consultation: 11/30/2019 Reason For Consultation: Congestive heart failure. History Of Present Illness: Ms. Melton is an 84-year-old white woman, has had a history of hyperten ermelinda, anxiety, and neuropathy. She has had a history of pacemaker placement. She came in with short ness of breath. However, she had a negative chest x-ray, negative troponin, does have renal insuffic iency, creatinine is 2.04. Her BNP was 4170. Echocardiogram in May of 2019 is normal. She does have a pacemaker. She denied chest pain per se, but had body aches all over. Denies nausea, vomiti ng, diaphoresis, PND, orthopnea, pedal edema, palpitations, or syncope. Allergies: SHE IS ALLERGIC TO MORPHINE, CODEINE, AND OPIOID. Past Medical History: As stated above. Review of Systems: Negative. Social History: Negative. Family History: Noncontributory. Medications: At home include metoprolol, Plavix, Synthroid, Xarelto, and Crestor. She also takes Pr otonix, Diamox, and Effexor. Physical Examination: General: Ms. Melton this morning was feeling much better. She does not have any more aches or pain . Vital Signs: Stable she is afebrile. She is in a paced rhythm. HEENT: Negative. Neck: Supple without any bruit, lymphadenopathy, JVD, or thyromegaly. Chest: Clear to auscultation and percussion. Cardiac: Revealed a paced rhythm. No murmurs, gallops, or rubs. Abdomen: Benign. Extremities: Revealed trace edema. Skin: Dry and intact. Neurological: She was nonfocal. Pulses were present distally bilaterally. Diagnostic Data: Stated earlier. Impression And Plan: 1.Overall body aches that are nonspecific, I doubt this is cardiac in nature, she may have had some kind of viral syndrome. 2.I think her shortness of breath and elevated BNP may be secondary to a mild anemia and renal insuf ficiency. I am comfortable with her going home today. I think it would be reasonable for her to hav e another echocardiogram in the near future. I can make arrangements for that as an outpatient. 3.History of pacemaker, stable. 4.Renal insufficiency, acute. 5.Hypertension, well controlled. 6.Dyslipidemia, on Crestor. 7.Anxiety. 8.Neuropathy. 9.History of atrial fibrillation, status post pacemaker, on Xarelto. She is also on Plavix. She is on metoprolol as well. When she goes home, I will prefer that we switch her Diamox to Lasix 40 mg d aily. Continue present regimen otherwise. HANS/GAYLA Voice ID: [id number] Report ID: [id number]
--- NOTE | 2019-11-30 11:00 | P.CNS ---
Date of Consult: 11/30/19 Reason for Consult: IZAIAH Chief Complaint: CHF exacerbation, hypoxia History of Present Illness: An 84-year-old woman legally blind with medical history of atrial fibrillation, hypertension, chronic kidney disease baseline Cr ~1.4 , hyperlipidemia, CHF, CAD Pt lives in assisted living , sent for hypoxia , in ER noticed to have hypoxia when speaking, CXR with possible trace pleural effusion currently on RA , no chest pain, palpitation, diarrhea or constipation pt was on lasix 40mg daily Nephrology consulted for Cr of 2.0 deneid NSAID intake or recent contrast exposure Physical exam general: AAOX3, NAD Neck; Supple, No elevated JVD hear: RRR, normal S1,2 no murmur or rub Chest: CTAB, no rlaes or wheezes Abdomen: Soft , Nt Extremities trace edema , leg wrapped Assessment And Plan: IZAIAH on CKD possibly due to cardiorenal syndrome cont current dose of lasix will do US today if no hydronephrosis , then pt can be discharged today and rpeat results in 7-10 days avoid NAID and contrast HTN controlled CHF slightly hypervolemic cont lasix Afib rate controlled now Allergies codeine Allergy (Verified 06/19/19 06:31) Itching Opioids - Morphine Analogues Adverse Reaction (Verified 06/19/19 06:31) Hypoxia, hallucinations, confusion Home Medications: Clopidogrel Bisulfate [Plavix*] 75 mg PO DAILY tablet 06/06/19 Clotrimazole [Lotrimin 1% Cream*] 1 avinash TOP BID tube 06/06/19 Docusate/Senna [Senokot-S*] 2 tab PO BEDTIME PRN tab 06/06/19 Iron/FA/Vit B-Com W/C [Hemocyte Plus*] 1 tab PO DAILY WITH BREAKFAST tab 06/06/19 Levothyroxine [Synthroid*] 0.15 mg PO DAILYAC tablet 06/06/19 Metoprolol Tartrate [Lopressor*] 12.5 mg PO BID 6AM 6PM tab 06/06/19 Pantoprazole [Protonix Tab*] 40 mg PO DAILYAC tab 06/06/19 Pramipexole [Mirapex*] 1 mg PO DAILY tab 06/06/19 Rivaroxaban [Xarelto*] 15 mg PO DAILY AT SUPPER tablet 06/06/19 acetaZOLAMIDE [Diamox*] 250 mg PO DAILY 06/13/19 Furosemide [Lasix*] 40 mg PO BIDL #60 tab 06/23/19 Melatonin 5 mg PO BEDTIME tablet 06/23/19 Potassium Oral Tab [Klor-Con 10 mEq Tab*] 10 meq PO TID #90 tab 06/23/19 Venlafaxine HCl [Effexor*] 37.5 mg PO DAILY #30 tab 06/23/19 Acetaminophen [Tylenol Extra Strength] 1,000 mg PO TIDP PRN 11/29/19 Cranberry Fruit Extract 450 mg PO BID 11/29/19 Gabapentin [Neurontin*] 100 mg PO BID 11/29/19 Lidocaine 1 patch TOP DAILY 11/29/19 Rosuvastatin [Crestor*] 10 mg PO BEDTIME 11/29/19 Trazodone [Desyrel*] 75 mg PO BEDTIME 11/29/19 - Past Medical/Surgical History Diabetic: No -: Hypertension -: Atrial fibrillation -: Hypothyroidism -: Depression -: Neuropathy -: RLS -: [place] -: CAD -: Appendectomy -: Cholesystectomy -: Hysterectomy -: nstemi -: fractured femur -: heart stents Psychosocial/ Personal History: Patient currently lives at assisted living facility. - Family History Father Medical History: Heart disease Mother Notes: old age - Social History Smoking Status: Unknown if ever smoked Alcohol use: No CD- Drugs: No Caffeine use: Yes Place [facility] Residence: [facility] Physical Examination Temp Pulse Resp BP Pulse Ox 98.7 F 70 20 122/78 100 11/30/19 08:00 11/30/19 08:00 11/30/19 08:00 11/30/19 08:00 11/30/19 08:00 Laboratory Data (last 24 hrs) 11/29/19 12:50: PT 19.4 H, INR 1.66 11/29/19 12:50: WBC 8.9, Hgb 10.9 L, Hct 34.2 L, Plt Count 251 11/29/19 12:50: Sodium 143, Potassium 3.9, BUN 29 H, Creatinine 2.04 H, Glucose 128 H, Magnesium 2.5 H, Total Bilirubin 0.6, AST 32, ALT 30, Alkaline Phosphatase 159 H
--- NOTE | 2019-11-30 13:14 | P.PN ---
Subjective Date of Service: 11/30/19 Chief Complaint: CHF exacerbation, hypoxia Subjective: No new changes, Improving Review of Systems 10-point ROS is otherwise unremarkable Physical Examination - Vital Signs Temperature: 98.7 F Blood Pressure: 122/78 Pulse: 70 Respirations: 20 Pulse Ox (%): 100 - Physical Exam General: Alert, In no apparent distress, Obese HEENT: Atraumatic, Normocephalic Neck: Supple Respiratory: Clear to auscultation bilaterally Cardiovascular: Regular rate/rhythm, Normal S1 S2 Capillary refill: <2 Seconds Gastrointestinal: Soft and benign, Tenderness (Right flank tenderness ) Musculoskeletal: No clubbing, No swelling Integumentary: No rashes Neurological: Normal speech, Other (Alert , Awake ) Lymphatics: No axilla or inguinal lymphadenopathy - Studies Laboratory Data (last 24 hrs) 11/29/19 12:50: PT 19.4 H, INR 1.66 11/29/19 12:50: WBC 8.9, Hgb 10.9 L, Hct 34.2 L, Plt Count 251 11/29/19 12:50: Sodium 143, Potassium 3.9, BUN 29 H, Creatinine 2.04 H, Glucose 128 H, Magnesium 2.5 H, Total Bilirubin 0.6, AST 32, ALT 30, Alkaline Phosphatase 159 H Assessment & Plan Physician Review: Patient Assessed, Agree with Above Assessment and Plan Physician Review Additional Text: Assessment Acute on chronic diastolic congestive heart failure with volume overload Atrial fibrillation on chronic anticoagulation therapy Acute on chronic chronic kidney disease Hypertension Hyperlipidemia Insomnia Hypothyroidism Plan Acute on chronic diastolic congestive heart failure with volume overload: Lasix 40 mg IV twice daily. Cardiology consult iAppreciated . Will continue with daily weights and 1500 cc per day fluid restriction. Echocardiogram in May that showed ejection fraction of approximately 60%. Atrial fibrillation on chronic anticoagulation therapy: Rate controlled, continue with patient's Xarelto, Plavix. Acute on chronic chronic kidney disease: Nephrology has been consulted Will check kidney function and morning labs. Getting a renal ultrasound Hypertension: Continue home medications Hyperlipidemia: Continue home medications Insomnia: Continue home medications Hypothyroidism: Continue home medications Discharge Plan: Getting a renal ultrasound as ordered by nephrology Appreciate help from cardiology and nephrology Was will be seen back to group home with ultrasound negative Time Spent Managing Pts Care (In Minutes): 42
[2019-11-30 13:31] VITALS: O2SAT 96
--- NOTE | 2019-11-30 15:50 | RAD REPORT ---
EXAM DESCRIPTION: US - Renal Ultrasound-Complete - 11/30/2019 2:33 pm CLINICAL HISTORY: IZAIAH COMPARISON: Renal ultrasound May 2019 FINDINGS: The right kidney measures 11.5 x 5.1 x 4.9 cm. The left kidney measures 11.0 x 5.4 x 6.0 cm. Renal cortical thickness and echogenicity are normal. No hydronephrosis or suspicious renal mass. Bladder is mostly contracted limiting assessment. No gross abnormality seen. IMPRESSION: No hydronephrosis or suspicious renal mass. No other significant findings. No significant change from May 2019 ultrasound study.
--- NOTE | 2019-11-30 16:36 | P.DS ---
Admission Date: 11/29/19 Discharge Date: 11/30/19 Disposition: ROUTINE DISCHARGE Discharge Condition: FAIR Reason for Admission: CHF exacerbation, hypoxia Brief History of Present Illness: 84-year-old female with medical history of atrial fibrillation, hypertension, chronic kidney disease, hyperlipidemia, CHF, CAD presents emergency department for hypoxia. Patient stated assisted-living facility was reported to be hypoxic in the 70s to 80s at the assisted living facility. Patient brought in by EMS and assessed in the emergency department. During her evaluation in the emergency department patient was found to desaturate into the high 80s when speaking or exerting herself out. Patient does have history of CHF, takes 40 mg of Lasix p.o. daily. Patient's workup in the emergency room was otherwise unremarkable. Patient's kidney function is slightly elevated and her baseline creatinine as this to today and previously around 1.4 1.5. Spoke with daughter who is power of estate attorney on the phone. She states that this happens when she has exacerbation from her CHF and also sometimes when she had urinary tract infection. Patient be admitted for further evaluation and management. Hospital Course: Acute on chronic diastolic congestive heart failure with volume overload: Atrial fibrillation on chronic anticoagulation therapy: Acute on chronic chronic kidney disease: Hypertension: Hyperlipidemia: Insomnia: Hypothyroidism: Course The patient was admitted and was started on IV diuretics with Lasix 40 mg IV twice daily. Cardiology consult appreciated and recommended conservative management with continuation of Lasix and follow up as an outpatient Advised to continue with daily weights and 1500 cc per day fluid restriction. Echocardiogram in May that showed ejection fraction of approximately 60%. Atrial fibrillation : Rate controlled, continue with patient's Xarelto, Plavix. Nephrology has been consulted And renal parameters were monitored underwent a renal ultrasound which did not show any hydronephrosis Discharge Plan: Getting a renal ultrasound as ordered by nephrology Appreciate help from cardiology and nephrology Was will be seen back to [facility] if ultrasound negative Vital Signs/Physical Exam: Temp Pulse Resp BP Pulse Ox 98.7 F 70 20 122/78 100 11/30/19 13:57 11/30/19 13:57 11/30/19 13:57 11/30/19 13:57 11/30/19 13:57 General: Alert, In no apparent distress HEENT: Atraumatic, Normocephalic Neck: Supple Respiratory: Clear to auscultation bilaterally Cardiovascular: Regular rate/rhythm, Normal S1 S2 Capillary refill: <2 Seconds Gastrointestinal: Soft and benign, W/out hepatosplenomegaly Musculoskeletal: No clubbing, No swelling Integumentary: No rashes Neurological: Normal strength at 5/5 x4 extr Laboratory Data at Discharge: WBC 9.1 K/uL (4.3-10.9) 11/30/19 05:30 Hgb 10.3 g/dL (12.0-15.0) L 11/30/19 05:30 Hct 32.1 % (36.0-45.0) L 11/30/19 05:30 Plt Count 226 K/uL (152-406) 11/30/19 05:30 PT 19.4 SECONDS (9.5-12.5) H 11/29/19 12:50 INR 1.66 11/29/19 12:50 Sodium 145 mmol/L (136-145) 11/30/19 05:30 Potassium 4.2 mmol/L (3.5-5.1) 11/30/19 05:30 BUN 31 mg/dL (7-18) H 11/30/19 05:30 Creatinine 2.01 mg/dL (0.55-1.3) H 11/30/19 05:30 Glucose 105 mg/dL (74-106) 11/30/19 05:30 Magnesium 2.4 mg/dL (1.8-2.4) 11/30/19 05:30 Total Bilirubin 0.6 mg/dL (0.2-1.0) 11/29/19 12:50 AST 32 U/L (15-37) 11/29/19 12:50 ALT 30 U/L (12-78) 11/29/19 12:50 Alkaline Phosphatase 159 U/L (45-117) H 11/29/19 12:50 Home Medications: Clopidogrel Bisulfate [Plavix*] 75 mg PO DAILY tablet 06/06/19 Clotrimazole [Lotrimin 1% Cream*] 1 avinash TOP BID tube 06/06/19 Docusate/Senna [Senokot-S*] 2 tab PO BEDTIME PRN tab 06/06/19 Iron/FA/Vit B-Com W/C [Hemocyte Plus*] 1 tab PO DAILY WITH BREAKFAST tab 06/06/19 Levothyroxine [Synthroid*] 0.15 mg PO DAILYAC tablet 06/06/19 Metoprolol Tartrate [Lopressor*] 12.5 mg PO BID 6AM 6PM tab 06/06/19 Pantoprazole [Protonix Tab*] 40 mg PO DAILYAC tab 06/06/19 Pramipexole [Mirapex*] 1 mg PO DAILY tab 06/06/19 Rivaroxaban [Xarelto*] 15 mg PO DAILY AT SUPPER tablet 06/06/19 Furosemide [Lasix*] 40 mg PO BIDL #60 tab 06/23/19 Melatonin 5 mg PO BEDTIME tablet 06/23/19 Potassium Oral Tab [Klor-Con 10 mEq Tab*] 10 meq PO TID #90 tab 06/23/19 Venlafaxine HCl [Effexor*] 37.5 mg PO DAILY #30 tab 06/23/19 Acetaminophen [Tylenol Extra Strength] 1,000 mg PO TIDP PRN 11/29/19 Cranberry Fruit Extract 450 mg PO BID 11/29/19 Gabapentin [Neurontin*] 100 mg PO BID 11/29/19 Lidocaine 1 patch TOP DAILY 11/29/19 Rosuvastatin [Crestor*] 10 mg PO BEDTIME 11/29/19 Trazodone [Desyrel*] 75 mg PO BEDTIME 11/29/19 Furosemide [Lasix] 40 mg PO BID #60 tablet 11/30/19 New Medications: Furosemide [Lasix] 40 mg PO BID #60 tablet Followup: Mario Pope MD [ACTIVE - CAN ADMIT] - Luis Sommers MD [ACTIVE - CAN ADMIT] - Time spent managing pt's care (in minutes): 45
[2019-11-30] MEDS ORDERED: RIVAROXABAN 15 MG TABLET PO SCH (17:45)
[2019-11-30] MEDS ORDERED: FUROSEMIDE 40 MG/4 ML VIAL IV SCH (18:00)
== END 2019-11-30 17:00 | disposition home or self-care (01) ==
LOC: ER 11:21 → ERHOLD 17:12 → 4TH 18:10
PROVIDERS: ADMIT Family Medicine; ATTEND Family Medicine
DX: I13.0 Hypertensive heart and chronic kidney disease with heart failure and stage 1 through stage 4 chronic kidney disease, or unspecified chronic kidney disease (principal); I50.33 Acute on chronic diastolic (congestive) heart failure; I48.91 Unspecified atrial fibrillation; N17.9 Acute kidney failure, unspecified; N18.9 Chronic kidney disease, unspecified; E78.5 Hyperlipidemia, unspecified; G47.00 Insomnia, unspecified; E03.9 Hypothyroidism, unspecified; R91.8 Other nonspecific abnormal finding of lung field; R06.02 Shortness of breath; Z20.828 Contact with and (suspected) exposure to other viral communicable diseases; M54.5 Low back pain; I25.10 Atherosclerotic heart disease of native coronary artery without angina pectoris; I25.2 Old myocardial infarction; G25.81 Restless legs syndrome; G62.9 Polyneuropathy, unspecified; F41.9 Anxiety disorder, unspecified; H54.8 Legal blindness, as defined in USA; Z79.02 Long term (current) use of antithrombotics/antiplatelets; Z79.01 Long term (current) use of anticoagulants; Z79.899 Other long term (current) drug therapy; Z95.5 Presence of coronary angioplasty implant and graft; Z95.0 Presence of cardiac pacemaker
CPT/HCPCS: 93005; 85025 ×2; 80048 ×2; 36415 ×2; 83735 ×2; 85610; 80076; 84484; 83880; 71250; 74176; 71045; 76770; 99285; U0002; G0378 ×3

== ENCOUNTER 2020-03-30 12:50 | Emergency (ER) | payer OTHER ==
--- OUTSIDE RECORDS SUMMARY | 2020-03-30 12:52 | XMS REPORT | Clinical Summary ---
:1935 Author Organization [facility] Address [address] [place] [address] Care Team Providers Name Role Phone MD [...] 9 Closed fracture of left hip 06/29/2018 Surgical History Surgery Date Site/Laterality Comments INTRAMEDULLARY RODDING, FEMUR 06/30/2018 Thigh/Left Pr ocedure: INTRAMEDULLARY RODDING, FEMUR; Surgeon: Jason Harrington MD; Location: [facility] OR; Service: Orthope dics; Laterality: Left ; Medical devices from this surgery are in t he Implants section. Medical History Medical History Date Comments Hypertension Hypothyroidism Restless leg syndrome Social History Tobacco Use Types Packs/Day Years [...] Assigned at Date Recorded Not on file Last Filed Vital Signs Not on file Plan of Treatment Health Maintenance Due Date Last Done Comments SHINGLES VACCINES (#1) 1985 65+ PNEUMOCOCCAL VACCINE (1 of - PPSV23) 02/25/2000 INFLUENZA VACCINE 12/07/2019 Implants Implanted Type Area Electric Deicer Assembler Device Shelf Model / Identifier Expiration Serial / Date Lot Kit Scr Intrlkng 90mm Lag 85mm Comp Intertan - [id number] Hip Delmis int Left: EDIL CABRALES [id number] / Implanted: Qty: 1 on 06/30/2018 by Jason Harrington MD at [facility] Implants Hip NEPHEW / ORTHOPEDICS Trigen Low Profile Screw 5.0mm X 40mm - [id number] IMPLANT Left: [employer]SUKUMAR [id number] / Implanted: Qty: 1 on 06/30/2018 by Jason Harrington MD at [facility] Hip ORTHOPAEDICS / Intertan 1.5 [id number] 125d Lt - [id number] IMPLANT Left: [employer] 08/19/2024 [id number] / Implanted: Qty: 1 on 06/30/2018 by Jason Harrington MD at [facility] Hip ORTHOPAEDICS / [id number] Results Not on fileafter 03/30/2019 Insurance Payer Benefit Plan / Subscriber ID Effective Dates Phone Addre ss Type Group MEDICARE MEDICARE PART A AND [id number] 2000-Ryan [facility] [place] Medicare B nt AETNA AETNA [facility] [id number] 2013-Nat wu Advance Directives For more information, please contact: [phone] Type Date Recorded Patient [employer] Expedition Guide Explanati on Advance Directives, Living Will and Medical Power of Dry Pan Charger Advance Directives, Living Will 07/18/2018 4:52 AM and Medical Power of Dry Pan Charger Code Status Date Activated Date Inactivated Comments DNR 06/30/2018 5:18 AM 07/09/2018 8:13 PM Code Status decision reached by: Patient
[2020-03-30] MEDS ORDERED: TOBRAMYCIN SULF 0.3% OPTH OINT ONE (14:21)
[2020-03-30] MEDS ORDERED: TETRACAINE HCL 0.5% 4ML OPTH ONE (14:22)
[2020-03-30] MEDS ORDERED: SILVER NITRATE 1 APPL TOP ONE (14:22)
--- NOTE | 2020-03-30 14:46 | ER ---
Nurse's Notes [facility] Name[facility] Coco Mel[facility] Age: 85 yrs Sex: Female : 1935 Arrival Date: 03/30/2020 Time: 12:53 Bed 18 Private MD: Michael Albright Diagnosis: Cutaneous abscess of other sites-left upper eyelid Presentation: 03/30 13:27 Chief complaint: Patient's son or daughter states: pt lives at [facility], got a call iw from Home Health nurse on Monday that she had a stye, now her left eyelid is red, swollen, draining, itchy. Coronavirus screen: At this time, the client does not indicate any symptoms associated with coronavirus-19. Ebola Screen: Patient negative for fever greater than or equal to 101.5 degrees Fahrenheit, and additional compatible Ebola Virus Disease symptoms Patient denies exposure to infectious person. Patient denies travel to an Ebola-affected area in the 21 days before illness onset. No symptoms or risks identified at this time. Initial Sepsis Screen: Does the patient meet any 2 criteria? No. Patient's initial sepsis screen is negative. Does the patient have a suspected source of infection? No. Patient's initial sepsis screen is negative. Risk Assessment: Do you want to hurt yourself or someone else? Patient reports no desire to harm self or others. Onset of symptoms was March 27, 2020. 13:27 Method Of Arrival: Wheelchair iw 13:27 Acuity: SIMONE 3 iw Historical: - Allergies: 13:31 Codeine; iw - Home Meds: 13:38 cephalexin 500 mg Oral cap three times a day [Active]; acetazolamide 250 mg Oral tab 1 iw tab once daily [Active]; clopidogrel 75 mg oral tab 1 tab once daily [Active]; levothyroxine 150 mcg tab 1 tab once daily [Active]; melatonin 5 mg Oral tab daily [Active]; pantoprazole 40 mg oral TbEC 1 tab once daily [Active]; pramipexole 1 mg oral tab nightly [Active]; rosuvastatin 10 mg oral tab MWF, Sun [Active]; trazodone 50 mg Oral tab nightly [Active]; venlafaxine 37.5 mg oral tab daily [Active]; Xarelto 15 mg oral tab daily [Active]; furosemide 40 mg Oral tab 1 tab 2 times per day [Active]; gabapentin 100 mg oral cap twice a day [Active]; metoprolol tartrate 25 mg oral tab 0.5 tab 2 times per day [Active]; Klor-Con 10 10 mEq Oral TbER 3 times per day [Active]; - PMHx: 13:31 Anxiety; Arthritis; Hypertension; Hypothyroidism; neuropathy; iw - Immunization history:: Adult Immunizations up to date. - Social history:: Smoking status: Patient denies any tobacco usage or history of. Screenin:17 Abuse screen: Denies threats or abuse. Denies injuries from another. Nutritional ph screening: No deficits noted. Tuberculosis screening: No symptoms or risk factors identified. Fall Risk None identified. Assessment: 14:15 General: Appears in no apparent distress. uncomfortable, well groomed, Behavior is ph calm, cooperative, appropriate for age, Denies fever. Pain: Complains of pain in left upper eyelid. Neuro: Level of Consciousness is awake, alert, obeys commands, Oriented to person, place, time, situation. Cardiovascular: Capillary refill < 3 seconds in bilateral fingers Patient's skin is warm and dry. Respiratory: Airway is patent Respiratory effort is even, unlabored. EENT: Lid(s) w/ stye noted left upper eyelid red and swollen w/ bleeding noted. Derm: Skin is healthy with good turgor, Skin is pink, warm \T\ dry. Musculoskeletal: Circulation, motion, and sensation intact. Range of motion: intact in all extremities. Vital Signs: 14:09 BP 111 / 94; Pulse 66; Resp 18; Pulse Ox 95% on R/A; ph 14:11 Temp 97.3; mt 15:00 BP 118 / 89; Pulse 64; Resp 16; Temp 97.4; Pulse Ox 96% on R/A; ph ED Course: 12:53 Patient arrived in ED. as 12:53 Michael Albright MD is Private Physician. as 13:30 Triage completed. iw 13:30 Arm band placed on. iw 13:35 Verónica Anaya, JOSI is Primary Nurse. ph 13:36 Shellie August FNP-C is PHCP. snw 13:36 Rafita Cardoso MD is Attending Physician. snw 14:17 Patient has correct armband on for positive identification. Bed in low position. Call ph light in reach. Side rails up X2. Pulse ox on. NIBP on. Door closed. Noise minimized. Warm blanket given. 14:45 Michael Albright MD is Referral Physician. snw 15:04 No provider procedures requiring assistance completed. Patient did not have IV access ph during this emergency room visit. Administered Medications: 14:17 Drug: Tetracaine Solution (0.5 %) 1 vials Route: Topical; Site: left eye; ph 15:03 Follow up: Response: No adverse reaction ph 14:20 Drug: Tobrex 0.3 % 1 application Route: Ophthalmic; Site: left eye; ph 15:03 Follow up: Response: No adverse reaction ph 14:45 Not Given (Physician Discretion): Silver Nitrate Applicators 1 application Topical once ph 15:02 Drug: Tylenol 1000 mg Route: PO; ph 15:02 Follow up: Response: No adverse reaction; Medication administered at discharge. ph 15:02 Drug: KeFLEX 500 mg Route: PO; ph 15:02 Follow up: Response: No adverse reaction; Medication administered at discharge. ph Outcome: 14:45 Discharge ordered by . snw 15:04 Discharged to home with family. ph 15:04 Condition: good 15:04 Discharge instructions given to patient, family, Instructed on discharge instructions, follow up and referral plans. medication usage, Demonstrated understanding of instructions, follow-up care, medications, Prescriptions given X 2. 15:06 Patient left the ED. ph Signatures: Shellie August FNP-C [employer] Ibis Fuller Irene, RN RN Verónica Anaya RN RN Pratibha Jj in
--- NOTE | 2020-03-30 14:46 | EDPHYS ---
Physician Documentation [facility] Name: Coco Melton Age: 85 yrs Sex: Female : 1935 Arrival Date: 03/30/2020 Time: 12:53 Bed 18 Private MD: Michael Albright ED Physician Rafita Cardoso HPI: 03/30 14:07 This 85 yrs old Female presents to ER via Wheelchair with complaints of Eye snw Problem. 14:07 The patient is experiencing redness, abscess/swelling to left upper eyelid, to the left snw eye. Onset: The symptoms/episode began/occurred suddenly, 4 day(s) ago, and became persistent. Duration: the symptoms are continuous. Associated signs and symptoms: Pertinent positives: None. Severity of symptoms: At their worst the symptoms were moderate. The patient has not experienced similar symptoms in the past. It is unknown whether or not the patient has recently seen a physician. pt lives at [facility]. Historical: - Allergies: 13:31 Codeine; iw - Home Meds: 13:38 cephalexin 500 mg Oral cap three times a day [Active]; acetazolamide 250 mg Oral tab 1 iw tab once daily [Active]; clopidogrel 75 mg oral tab 1 tab once daily [Active]; levothyroxine 150 mcg tab 1 tab once daily [Active]; melatonin 5 mg Oral tab daily [Active]; pantoprazole 40 mg oral TbEC 1 tab once daily [Active]; pramipexole 1 mg oral tab nightly [Active]; rosuvastatin 10 mg oral tab MWF, Sun [Active]; trazodone 50 mg Oral tab nightly [Active]; venlafaxine 37.5 mg oral tab daily [Active]; Xarelto 15 mg oral tab daily [Active]; furosemide 40 mg Oral tab 1 tab 2 times per day [Active]; gabapentin 100 mg oral cap twice a day [Active]; metoprolol tartrate 25 mg oral tab 0.5 tab 2 times per day [Active]; Klor-Con 10 10 mEq Oral TbER 3 times per day [Active]; - PMHx: 13:31 Anxiety; Arthritis; Hypertension; Hypothyroidism; neuropathy; iw - Immunization history:: Adult Immunizations up to date. - Social history:: Smoking status: Patient denies any tobacco usage or history of. ROS: 14:07 Constitutional: Negative for fever, chills, and weight loss, ENT: Negative for injury, snw pain, and discharge, Neck: Negative for injury, pain, and swelling, Cardiovascular: Negative for chest pain, palpitations, and edema, Respiratory: Negative for shortness of breath, cough, wheezing, and pleuritic chest pain, Abdomen/GI: Negative for abdominal pain, nausea, vomiting, diarrhea, and constipation, Back: Negative for injury and pain, : Negative for injury, bleeding, discharge, and swelling, MS/Extremity: Negative for injury and deformity, Skin: Negative for injury, rash, and discoloration, Neuro: Negative for headache, weakness, numbness, tingling, and seizure, Psych: Negative for depression, anxiety, suicide ideation, homicidal ideation, and hallucinations. 14:07 Eyes: Positive for discharge, redness, swelling, of the left upper eyelid. Exam: 14:06 Constitutional: This is a well developed, well nourished patient who is awake, alert, snw and in no acute distress. Head/Face: Normocephalic, atraumatic. ENT: Nares patent. No nasal discharge, no septal abnormalities noted. Tympanic membranes are normal and external auditory canals are clear. Oropharynx with no redness, swelling, or masses, exudates, or evidence of obstruction, uvula midline. Mucous membranes moist. Neck: Trachea midline, no thyromegaly or masses palpated, and no cervical lymphadenopathy. Supple, full range of motion without nuchal rigidity, or vertebral point tenderness. No Meningismus. Chest/axilla: Normal chest wall appearance and motion. Nontender with no deformity. No lesions are appreciated. Cardiovascular: Regular rate and rhythm with a normal S1 and S2. No gallops, murmurs, or rubs. Normal PMI, no JVD. No pulse deficits. Respiratory: Lungs have equal breath sounds bilaterally, clear to auscultation and percussion. No rales, rhonchi or wheezes noted. No increased work of breathing, no retractions or nasal flaring. Abdomen/GI: Soft, non-tender, with normal bowel sounds. No distension or tympany. No guarding or rebound. No evidence of tenderness throughout. Back: No spinal tenderness. No costovertebral tenderness. Full range of motion. Skin: Warm, dry with normal turgor. Normal color with no rashes, no lesions, and no evidence of cellulitis. MS/ Extremity: Pulses equal, no cyanosis. Neurovascular intact. Full, normal range of motion. Neuro: Awake and alert, GCS 15, oriented to person, place, time, and situation. Cranial nerves II-XII grossly intact. Motor strength 5/5 in all extremities. Sensory grossly intact. Cerebellar exam normal. Normal gait. Psych: Awake, alert, with orientation to person, place and time. Behavior, mood, and affect are within normal limits. 14:06 Eyes: Periorbital structures: cellulitis, that is mild, on the left upper eyelid, erythema, that is moderate, on the left upper eyelid, medial aspect of conjunctiva of left eye and lateral aspect of conjunctiva of left eye, large medial upper lid abscess, crusted wound, swelling, that is mild, on the left upper eyelid. Vital Signs: 14:09 BP 111 / 94; Pulse 66; Resp 18; Pulse Ox 95% on R/A; ph 14:11 Temp 97.3; mt 15:00 BP 118 / 89; Pulse 64; Resp 16; Temp 97.4; Pulse Ox 96% on R/A; ph Procedures: 14:43 I \T\ D: Incision and drainage was performed for an abscess of the left left upper eyelid snw Prepped with hibiclens. Anesthetized with tetracaine. Incised with needle. Drained moderate amount serosanguinous fluid. Loculations removed. Abscess cavity explored. Dressing: tobramycin oint the patient tolerated the procedure well. MDM: 13:40 Patient medically screened. snw 14:44 Data reviewed: vital signs, nurses notes. Data interpreted: Pulse oximetry: on room air snw is 95 %. Interpretation: acceptable. Counseling: I had a detailed discussion with the patient and/or guardian regarding: the historical points, exam findings, and any diagnostic results supporting the discharge/admit diagnosis, the presence of at least one elevated blood pressure reading (>120/80) during this emergency department visit, the need for outpatient follow up, to return to the emergency department if symptoms worsen or persist or if there are any questions or concerns that arise at home. Special discussion: I have referred the patient to see his PCP for further evaluation of high blood pressure. I discussed in detail with the patient the higher chance of wound infection based on his presenting history. Based on the history and exam findings, there is no indication for further emergent testing or inpatient evaluation. I discussed with the patient/guardian the need to see the primary care provider for further evaluation of the symptoms. Administered Medications: 14:17 Drug: Tetracaine Solution (0.5 %) 1 vials Route: Topical; Site: left eye; ph 15:03 Follow up: Response: No adverse reaction ph 14:20 Drug: Tobrex 0.3 % 1 application Route: Ophthalmic; Site: left eye; ph 15:03 Follow up: Response: No adverse reaction ph 14:45 Not Given (Physician Discretion): Silver Nitrate Applicators 1 application Topical once ph 15:02 Drug: Tylenol 1000 mg Route: PO; ph 15:02 Follow up: Response: No adverse reaction; Medication administered at discharge. ph 15:02 Drug: KeFLEX 500 mg Route: PO; ph 15:02 Follow up: Response: No adverse reaction; Medication administered at discharge. ph Disposition: 03/31 09:24 Co-signature as Attending Physician, Rafita Cardoso MD I agree with the assessment and mary plan of care. Disposition: 03/30/20 14:45 Discharged to Home. Impression: Cutaneous abscess of other sites - left upper eyelid. - Condition is Stable. - Discharge Instructions: Skin Abscess, Incision and Drainage, Preseptal Cellulitis, Adult. - Prescriptions for TOBRAMYCIN opthalmic ointment - Apply to affected area 1 application by TOPICAL route 3 times per day for 7 days; 1 tube. Keflex 500 mg Oral Capsule - take 1 capsule by ORAL route every 8 hours for 10 days; 30 capsule. - Medication Reconciliation Form, Thank You Letter, Antibiotic Education, Prescription Opioid Use form. - Follow up: Michael Albright MD; When: 2 - 3 days; Reason: Recheck today's complaints, Continuance of care, Re-evaluation by your physician. Signatures: Rafita Cardoso MD MD cha Waters, Shelly, MARY-C HASSOCK MAKER-Anniaw Marlene Rasheed RN RN iw Hall, Patricia, RN RN ph Corrections: (The following items were deleted from the chart) 03/30 15:06 14:45 03/30/2020 14:45 Discharged to Home. Impression: Cutaneous abscess of other sites ph - left upper eyelid. Condition is Stable. Forms are Medication Reconciliation Form, Thank You Letter, Antibiotic Education, Prescription Opioid Use. Follow up: Michael Albright; When: 2 - 3 days; Reason: Recheck today's complaints, Continuance of care, Re-evaluation by your physician. snw
[2020-03-30] MEDS ORDERED: CEPHALEXIN 250 MG CAP ONE (15:08)
[2020-03-30] MEDS ORDERED: ACETAMINOPHEN 500 MG TAB ONE (15:09)
[2020-03-30 18:30] VITALS: BP 111/94; O2SAT 95
[2020-03-30 18:31] VITALS: TEMP 97.3
== END 2020-03-30 15:06 | disposition home or self-care (01) ==
LOC: ER 12:50
PROC: 089PXZZ Drainage of Left Upper Eyelid, External Approach (ICD-10-PCS; principal; 2020-03-30)
DX: H00.034 Abscess of left upper eyelid (principal); I10 Essential (primary) hypertension; E03.9 Hypothyroidism, unspecified; F41.9 Anxiety disorder, unspecified; Z79.01 Long term (current) use of anticoagulants; Z88.5 Allergy status to narcotic agent
CPT/HCPCS: 99283

== ENCOUNTER 2020-04-10 17:57 | Inpatient (IN) | payer OTHER ==
--- OUTSIDE RECORDS SUMMARY | 2020-04-10 18:00 | XMS REPORT | Clinical Summary ---
:1935 Author Organization [facility] Address [address] [place] [address] Care Team Providers Name Role Phone MD [...] RODDING, FEMUR; Surgeon: Jason Harrington MD; Location: [facility] OP C 19 OR; Service: Orthope [...] INFLUENZA VACCINE 12/07/2019 Implants Implanted Type Area Painter Supervisor Device Shelf Model / Identifier Expiration Serial / Date Lot Kit Scr Intrlkng 90mm Lag 85mm Comp Intertan - [id number] Hip Delmis int Left: EDIL CABRALES [id number] / Implanted: Qty: 1 on 06/30/2018 by Jason Harrington MD at [facility] Implants Hip NEPHEW / ORTHOPEDICS Trigen Low Profile Screw 5.0mm X 40mm - [id number] IMPLANT Left: SOLO & NEPHSUKUMAR [id number] / Implanted: Qty: 1 on 06/30/2018 by Jason Harrington MD at [facility] DEVICES Hip ORTHOPAEDICS / Intertan 1.5 [id number] 125d Lt - [id number] [id number] IMPLANT Left: [employer] NEPHEW 08/19/2024 [id number] / Implanted: Qty: 1 on 06/30/2018 by Jason Harrington MD at [facility] DEVICES Hip ORTHOPAEDICS / [id number] Results Not on fileafter 04/10/2019 Insurance Payer Benefit Plan / Subscriber ID Effective Dates Phone Addre ss Type Group MEDICARE MEDICARE PART A AND [id number] 2000-Ryan [facility] [place] Medicare B nt AETNA AETNA [facility] [id number] 2013-Nat wu Advance Directives For more information, please contact: [phone] Type Date Recorded Patient Case Specialist Explanati on Advance Directives, Living Will and Medical Power of Manager Drive Advance Directives, Living Will 07/18/2018 4:52 AM and Medical Power of Manager [address] Code Status Date Activated Date Inactivated Comments DNR 06/30/2018 5:18 AM 07/09/2018 8:13 PM Code Status decision reached by: Patient
[2020-04-10] MEDS ORDERED: NA CHLORIDE 0.9% 1,000 ML ONE (20:10)
[2020-04-10 20:31] LABS: Absolute Lymphocytes (CBC) 0.7 K/uL (0.7-4.9); Basophils % 0.2 % (0-1.3); Hematocrit 30.7 % (36.0-45.0); Lymphocytes % 7.1 % (15.3-44.8); MPV 7.8 fL (7.6-11.3); RBC Red Blood Cell Count 2.96 M/uL (3.86-4.86)
[2020-04-10 20:32] LABS: Protime INR 1.71
--- NOTE | 2020-04-10 20:48 | RAD REPORT ---
EXAM DESCRIPTION: RAD - Chest Single View - 04/10/2020 7:52 pm CLINICAL HISTORY: confusion Chest pain. COMPARISON: Chest Single View dated 11/29/2019; Chest Single View dated 06/10/2019; Chest Single View d ated 06/08/2019; Chest Single View dated 06/07/2019 FINDINGS: Portable technique limits examination quality. Mild interstitial pulmonary edema seen. Small left pleural effusion. The heart is significantly enlar ged with a multi lead pacer/defibrillator device.
[2020-04-10 20:52] LABS: ALT/SGPT 90 U/L (12-78); AST/SGOT 141 U/L (15-37); Albumin 2.5 g/dL (3.4-5.0); Alkaline Phosphatase 241 U/L (45-117); BUN Blood Urea Nitrogen 26 mg/dL (7-18); Bicarbonate 28 mmol/L (21-32); Bilirubin Direct 0.2 mg/dL (0-0.2); Bilirubin Total 0.4 mg/dL (0.2-1.0); Glucose Level 106 mg/dL (74-106); Magnesium 2.3 mg/dL (1.8-2.4); NT PRO-BNP 2607 pg/mL (<450); Potassium 3.9 mmol/L (3.5-5.1); Protein, Total 7.3 g/dL (6.4-8.2); Sodium Level 145 mmol/L (136-145); Troponin (Emerg Dept Use Only) < 0.02 ng/mL (0.0-0.045)
[2020-04-10] MEDS ORDERED: SILVER NITRATE 1 APPL TOP ONE ×2 (21:02→21:03)
[2020-04-10] MEDS ORDERED: LIDOCAINE 1% W/EPI 1:100,000 MDV 20 ML VIAL ONE (21:07)
[2020-04-10 21:56] LABS: Urine Blood 1+ (NEG); Urine Glucose NEGATIVE (NEG); Urine Protein NEGATIVE (NEG)
--- NOTE | 2020-04-10 22:45 | EDPHYS ---
Physician Documentation [facility] Name: Coco Melton Age: 85 yrs Sex: Female : 1935 Arrival Date: 04/10/2020 Time: 17:59 Bed 25 Private MD: ED Physician Jeffrey Patrick HPI: 04/10 19:37 This 85 yrs old Female presents to ER via Wheelchair with complaints of Dark pkl Urine, Confusion. 19:37 The patient presents with urinary symptoms, urine dark and foul smelling. Onset: The pkl symptoms/episode began/occurred 3 day(s) ago. Associated signs and symptoms: Pertinent positives: confusion, dark tarry diarrhea. Historical: - Allergies: 18:45 Codeine; ss 18:45 tramadol; ss 18:45 Opioids - Morphine Analogues; ss - PMHx: 18:45 Anxiety; neuropathy; Hypothyroidism; Hypertension; Arthritis; ss - Immunization history:: Adult Immunizations up to date. - Social history:: Smoking status: Patient denies any tobacco usage or history of. ROS: 19:40 Positive for foul smelling urine, dark urine. pkl 19:40 Eyes: Negative for injury, pain, redness, and discharge, ENT: Negative for injury, pain, and discharge, Neck: Negative for injury, pain, and swelling, Cardiovascular: Negative for chest pain, palpitations, and edema, Respiratory: Negative for shortness of breath, cough, wheezing, and pleuritic chest pain. 19:40 Abdomen/GI: Positive for diarrhea. 19:40 Back: Negative for acute changes. 19:40 MS/extremity: Negative for acute changes. 19:40 Skin: Negative for rash. 19:40 Neuro: Positive for confusion. Exam: 19:40 Head/Face: Normocephalic, atraumatic. Eyes: Pupils equal round and reactive to light, pkl extra-ocular motions intact. Lids and lashes normal. Conjunctiva and sclera are non-icteric and not injected. Cornea within normal limits. Periorbital areas with no swelling, redness, or edema. ENT: Nares patent. No nasal discharge, no septal abnormalities noted. Tympanic membranes are normal and external auditory canals are clear. Oropharynx with no redness, swelling, or masses, exudates, or evidence of obstruction, uvula midline. Mucous membranes moist. Neck: Trachea midline, no thyromegaly or masses palpated, and no cervical lymphadenopathy. Supple, full range of motion without nuchal rigidity, or vertebral point tenderness. No Meningismus. Chest/axilla: Normal chest wall appearance and motion. Nontender with no deformity. No lesions are appreciated. Cardiovascular: Regular rate and rhythm with a normal S1 and S2. No gallops, murmurs, or rubs. Normal PMI, no JVD. No pulse deficits. Respiratory: Lungs have equal breath sounds bilaterally, clear to auscultation and percussion. No rales, rhonchi or wheezes noted. No increased work of breathing, no retractions or nasal flaring. 19:40 Abdomen/GI: Bowel sounds: normal, Palpation: abdomen is soft and non-tender, in all quadrants. 19:40 Back: Exam negative for acute changes. 19:40 : dark foul smelling urine. 19:40 Musculoskeletal/extremity: Exam is negative for acute changes. 19:40 Skin: Exam negative for rash. 19:40 Neuro: Orientation: appropriate for stated age, Mentation: responsive to voice able to follow commands, confused, Cranial nerves: grossly normal, Motor: moves all fours. 20:32 Abdomen/GI: Rectal exam: Stool: grossly bloody, guaiac positive, black, the exam is pkl chaperoned by the nurse. Vital Signs: 18:42 BP 108 / 52; Pulse 82; Resp 15; Temp 96.7(TE); Pulse Ox 86% on R/A; Weight 88.45 kg; ss Pain 0/10; 20:00 BP 104 / 60; Pulse 68; Resp 16; Pulse Ox 95% on R/A; jb4 21:00 BP 112 / 53; Pulse 71; Resp 18; Pulse Ox 95% on R/A; jb4 22:00 BP 122 / 51; Pulse 70; Resp 16; Pulse Ox 98% on R/A; jb4 23:30 BP 118 / 56; Pulse 70; Resp 16; Pulse Ox 99% on R/A; jb4 1205 00:30 BP 118 / 59; Pulse 70; Resp 16; Pulse Ox 96% on R/A; jb4 12 18:42 Daughter reports that baseline O2 is anywhere from 87- 95% ss MDM: 19:13 Patient medically screened. pkl 20:33 Data reviewed: vital signs, nurses notes. pkl 21:10 ED course: Bleeding noted from blister right buttock. Unable to stop bleeding with pkl silver nitrate sticks and cautery. Bleeding controlled with 2 4-0 Prolene sutures. 22:42 ED course: Talked to Dr. Albright, admit. pkl 04/10 19:32 Order name: Basic Metabolic Panel; Complete Time: 21:25 pkl /04 19:32 Order name: CBC with Diff; Complete Time: 21:25 pkl 04/10 19:32 Order name: LFT's; Complete Time: 21:25 pkl 04 19:32 Order name: Magnesium; Complete Time: 21:25 pkl /04 19:32 Order name: NT PRO-BNP; Complete Time: 21:25 pkl 04 19:32 Order name: PT-INR; Complete Time: 21:25 pkl 04/10 19:32 Order name: Troponin (emerg Dept Use Only); Complete Time: 21:25 pkl 04/10 19:32 Order name: D-Dimer; Complete Time: 21:25 pkl 04 19:32 Order name: ABG; Complete Time: 02:14 pkl 04 19:32 Order name: Stool Culture pkl 04/10 19:32 Order name: TSH; Complete Time: 21:25 pkl /04 19:35 Order name: Blood Culture Adult (2) pkl 04 19:40 Order name: Lactate; Complete Time: 21:25 pkl 04 19:32 Order name: XRAY Chest (1 view); Complete Time: 21:25 pkl /04 21:00 Order name: T4 Free; Complete Time: 21:25 EDMS 04 21:29 Order name: Urine Dipstick--Ancillary (enter results); Complete Time: 22:16 mw2 04/10 22:40 Order name: Type And Screen pkl 04/10 23:43 Order name: Basic Metabolic Panel EDMS 04/10 23:43 Order name: Basic Metabolic Panel EDMS 04/10 23:43 Order name: CBC with Automated Diff EDMS 04/10 23:43 Order name: CBC with Automated Diff EDMS 04/11 00:55 Order name: SARS-COV-2 RT PCR; Complete Time: 02:14 EDMS 04/11 01:01 Order name: CBC with Diff sg 04/11 01:01 Order name: CDIFF sg 04/11 01:42 Order name: CBC with Automated Diff; Complete Time: 02:14 EDMS 04/11 09:18 Order name: CBC Smear Scan EDMS 04/11 12:10 Order name: Hemoglobin EDMS 04/11 12:10 Order name: Hematocrit EDMS 04/11 12:19 Order name: C.difficile GDH Ag EDMS 04/10 19:32 Order name: EKG; Complete Time: 19:33 pkl 04/10 19:32 Order name: Cardiac monitoring; Complete Time: 20:21 pkl 04/10 19:32 Order name: EKG - Nurse/Tech; Complete Time: 20:21 pkl 04/10 19:32 Order name: IV Saline Lock; Complete Time: 20:21 pkl 04/10 19:32 Order name: Labs collected and sent; Complete Time: 20:21 pkl 04/10 19:32 Order name: O2 Per Protocol; Complete Time: 19:37 pkl 04/10 19:32 Order name: O2 Sat Monitoring; Complete Time: 19:37 pkl 04/10 19:32 Order name: Baron; Complete Time: 21:39 pkl 04/10 22:23 Order name: Dressing - Wound; Complete Time: 22:23 jb4 04/10 22:23 Order name: Gloves, Sterile; Complete Time: 22:23 jb4 04/10 22:23 Order name: Setup Suture Tray; Complete Time: 22:23 jb4 04/10 22:40 Order name: CT Abd/Pelvis - Without Cont (PO Contrast Only) pkl 04/10 23:43 Order name: Clear Liquid EDWA 04/11 09:14 Order name: CT EDMS Administered Medications: 20:00 Drug: NS 0.9% 500 ml Route: IV; Rate: bolus; Site: right forearm; jb4 20:21 Not Given (Duplicate Order): NS 0.9% 500 ml IV at bolus once jb4 20:30 Drug: NS 0.9% 1000 ml Route: IV; Rate: 100 ml/hr; Site: right forearm; jb4 20:50 Drug: Silver Nitrate Applicators 1 application {Note: Administered by Dr. Julio} Route: jb4 Topical; Site: affected area; 20:55 Drug: Lidocaine-Epinephrine -1%: (1:100,000) 1 application {Note: Administered by Dr. ryan Patrick .} Volume: 20 ml; Route: Infiltration; 23:17 Drug: Rocephin - (cefTRIAXone) 1 grams {Note: given IVP per pharmacy protocol..} Route: jb4 IVPB; Infused Over: 30 mins; Site: right forearm; Disposition: 04/10/20 22:44 Hospitalization ordered by Michael Albright for Inpatient Admission. Preliminary diagnosis is Bloody diarrhea. - Bed requested for Telemetry/MedSurg (Inpatient). - Status is Inpatient Admission. 3 - Condition is Stable. - Problem is new. - Symptoms are unchanged. Signatures: Dispatcher [employer] [facility] Nayely Love RN RN dw Lam, Pin, MD MD pkl Trice Adame RN RN Srini Lozoya RN RN jb4 Herrera, Deanna [facility] Patrizia Delgado Corrections: (The following items were deleted from the chart) 23:25 22:44 Hospitalization Ordered by Michael Albright MD for Inpatient Admission. Preliminary diagnosis is Bloody diarrhea. Bed requested for Telemetry/MedSurg (Inpatient). Status is Inpatient Admission. Condition is Stable. Problem is new. Symptoms are unchanged. pkl 23:28 19:36 CORONAVIRUS+MR.LAB.BRZ ordered. [facility] 04/11 11:59 12/04 23:25 04/10/2020 22:44 Hospitalization Ordered by Michael Albright MD for Inpatient eb Admission. Preliminary diagnosis is Bloody diarrhea. Bed requested for [facility] ER HOLD. Status is Inpatient Admission. Condition is Stable. Problem is new. Symptoms are unchanged. 04/11 12:41 11:59 04/10/2020 22:44 Hospitalization Ordered by Michael Albright MD for Inpatient dh3 Admission. Preliminary diagnosis is Bloody diarrhea. Bed requested for Telemetry/MedSurg (Inpatient). Status is Inpatient Admission. Condition is Stable. Problem is new. Symptoms are unchanged. eb
--- NOTE | 2020-04-10 22:45 | ER ---
Nurse's Notes [facility] Name: Coco Melton Age: 85 yrs Sex: Female : 1935 Arrival Date: 04/10/2020 Time: 17:59 Bed 25 Private MD: Diagnosis: Bloody diarrhea Presentation: 04/10 18:42 Chief complaint: Patient's son or daughter states: confusion, dark/ foul smelling urine ss and back/ tarry diarrhea that began 2-3 days ago. Pt is on iron supplements, but daughter is concerned because she appears a little pale. Coronavirus screen: Client denies travel out of the [place] in the last 14 days. Ebola Screen: Patient denies exposure to infectious person. Patient denies travel to an Ebola-affected area in the 21 days before illness onset. Initial Sepsis Screen: Does the patient meet any 2 criteria? No. Patient's initial sepsis screen is negative. Does the patient have a suspected source of infection? Yes: Dysuria/Frequency/Urgency/UTI. Risk Assessment: Do you want to hurt yourself or someone else? Patient reports no desire to harm self or others. Onset of symptoms was April 07, 2020. 18:42 Method Of Arrival: Wheelchair ss 18:42 Acuity: SIMONE 3 ss Historical: - Allergies: 18:45 Codeine; ss 18:45 tramadol; ss 18:45 Opioids - Morphine Analogues; ss - PMHx: 18:45 Anxiety; neuropathy; Hypothyroidism; Hypertension; Arthritis; ss - Immunization history:: Adult Immunizations up to date. - Social history:: Smoking status: Patient denies any tobacco usage or history of. Screenin:00 Abuse screen: Denies threats or abuse. Nutritional screening: No deficits noted. jb4 Tuberculosis screening: No symptoms or risk factors identified. Fall Risk Gait- Impaired (20 pts.). Mental Status- Overestimates/Forgets Limitations (15 pts.). Total Mckeon Fall Scale indicates Low Risk Score (25-44 pts). Fall prevention measures have been instituted. Side Rails Up X 2 Placed close to Nursing Station Frequent Obs/Assesments occuring Family Present and informed to notify staff if they need to leave bedside As available Patient and Family Educated on Fall Prevention Program and strategies. Assessment: 19:00 General: Appears in no apparent distress. uncomfortable, Behavior is calm, cooperative, jb4 appropriate for age. Pain: Denies pain. Neuro: Level of Consciousness is awake, alert, obeys commands, Oriented to person, place, situation. Cardiovascular: Patient's skin is warm and dry. Respiratory: Airway is patent Respiratory effort is even, unlabored, Respiratory pattern is regular, symmetrical. GI: No signs and/or symptoms were reported involving the gastrointestinal system. : Parent/caregiver report the patient having Darker foul smelling urine. EENT: No signs and/or symptoms were reported regarding the EENT system. Derm: Skin is pink, warm \T\ dry. Wound noted right gluteus xavier Wound is Pt appears to have a stage one decubitus ulcer with a skin tear. Decubitus located on sacrum approximately 1.5 cm to 2.5 cm is stage II is draining none noted. 19:00 Musculoskeletal: Circulation, motion, and sensation intact. Range of motion: intact in jb4 all extremities. 20:00 Reassessment: Patient appears in no apparent distress at this time. Patient and/or jb4 family updated on plan of care and expected duration. Pain level reassessed. Patient is alert, oriented x 3, equal unlabored respirations, skin warm/dry/pink. 20:50 Reassessment: Verbal order received from Dr. Patrick for 4 silver nitrate applicators. jb4 20:55 Reassessment: Verbal order received from Dr. Patrick for laceration repair setup and 20ml jb4 of 1% lidocaine with epi. 21:00 Reassessment: Patient appears in no apparent distress at this time. Patient and/or jb4 family updated on plan of care and expected duration. Pain level reassessed. Patient is alert, oriented x 3, equal unlabored respirations, skin warm/dry/pink. 22:00 Reassessment: Patient appears in no apparent distress at this time. Patient and/or jb4 family updated on plan of care and expected duration. Pain level reassessed. Patient is alert, oriented x 3, equal unlabored respirations, skin warm/dry/pink. 23:00 Reassessment: Patient appears in no apparent distress at this time. Patient and/or jb4 family updated on plan of care and expected duration. Pain level reassessed. Patient is alert, oriented x 3, equal unlabored respirations, skin warm/dry/pink. 04/11 00:00 Reassessment: Patient appears in no apparent distress at this time. Patient and/or jb4 family updated on plan of care and expected duration. Pain level reassessed. Patient is alert, oriented x 3, equal unlabored respirations, skin warm/dry/pink. 00:30 Reassessment: Patient appears in no apparent distress at this time. Patient and/or jb4 family updated on plan of care and expected duration. Pain level reassessed. Patient is alert, oriented x 3, equal unlabored respirations, skin warm/dry/pink. PT having constant diarrhea, without stopping, provider notified, given verbal order to insert Stool Management System. 01:30 Reassessment: Patient appears in no apparent distress at this time. Patient and/or jb4 family updated on plan of care and expected duration. Pain level reassessed. Patient is alert, oriented x 3, equal unlabored respirations, skin warm/dry/pink. Report given to JOSI Gan. Pt admitted to ER hold. Vital Signs: 04/10 18:42 BP 108 / 52; Pulse 82; Resp 15; Temp 96.7(TE); Pulse Ox 86% on R/A; Weight 88.45 kg; ss Pain 0/10; 20:00 BP 104 / 60; Pulse 68; Resp 16; Pulse Ox 95% on R/A; jb4 21:00 BP 112 / 53; Pulse 71; Resp 18; Pulse Ox 95% on R/A; jb4 22:00 BP 122 / 51; Pulse 70; Resp 16; Pulse Ox 98% on R/A; jb4 23:30 BP 118 / 56; Pulse 70; Resp 16; Pulse Ox 99% on R/A; jb4 04/11 00:30 BP 118 / 59; Pulse 70; Resp 16; Pulse Ox 96% on R/A; jb4 04/10 18:42 Daughter reports that baseline O2 is anywhere from 87- 95% ss ED Course: 17:59 Patient arrived in ED. ds1 18:44 Triage completed. ss 18:45 Arm band placed on right wrist. ss 19:00 Patient has correct armband on for positive identification. Placed in gown. Bed in low jb4 position. Call light in reach. Side rails up X2. pvc monitor on. Pulse ox on. NIBP on. 19:06 Srini Lozoya, RN is Primary Nurse. jb4 19:13 Jeffrey Patrick MD is Attending Physician. pkl 19:52 XRAY Chest (1 view) In Process Unspecified. EDMS 20:00 Initial lab(s) drawn, by ED staff, sent to lab. Inserted saline lock: 20 gauge in right jb4 forearm, using aseptic technique. ,using aseptic technique. performed by JACKIE Hughes. Blood collected. 20:44 Notified ED physician of a critical lab result(s). D dimer 549. ll1 21:00 Assist provider with laceration repair on right gluteus xavier that was 2.5 cm. or jb4 less using sutures. Set up tray. Performed by Jeffrey Patrick MD Dressed with 4X4s, Neosporin, Patient tolerated well. 21:17 Baron cath inserted, using sterile technique, 18 Fr., by mi, balloon inflated, to jb4 gravity drainage, urine specimen collected. Patient tolerated well. 22:43 Michael Albright MD is Hospitalizing Provider. pkl 04/11 01:30 Patient admitted, IV remains in place. jb4 Administered Medications: 04/10 20:00 Drug: NS 0.9% 500 ml Route: IV; Rate: bolus; Site: right forearm; jb4 20:21 Not Given (Duplicate Order): NS 0.9% 500 ml IV at bolus once jb4 20:30 Drug: NS 0.9% 1000 ml Route: IV; Rate: 100 ml/hr; Site: right forearm; jb4 20:50 Drug: Silver Nitrate Applicators 1 application {Note: Administered by Dr. Patrick.} Route: jb4 Topical; Site: affected area; 20:55 Drug: Lidocaine-Epinephrine -1%: (1:100,000) 1 application {Note: Administered by Dr. ryan Patrick .} Volume: 20 ml; Route: Infiltration; 23:17 Drug: Rocephin - (cefTRIAXone) 1 grams {Note: given IVP per pharmacy protocol..} Route: jb4 IVPB; Infused Over: 30 mins; Site: right forearm; Outcome: 22:44 Decision to Hospitalize by Provider. pkl 04/11 01:30 Admitted to ER Hold. Please see [facility] for further documentation. jb4 Condition: stable Discharge instructions given to patient, family, Instructed on the need for admit, Demonstrated understanding of instructions. 12:41 Patient left the ED. 3 Signatures: Dispatcher [employer] EDJeffrey Joy MD MD pkl Sanford, Demi ds1 Trice Adame RN RN ss Srini Lozoya RN RN jb4 Steph Tolbert 3 Albin Miramontes RN RN ll1
[2020-04-10 23:03] LABS: Arterial Blood Carboxyhemoglob 1.5 % (0-1.5); Blood Gas Oxyhemoglobin 92.5 % (94-97); Blood O2 Saturation 94.7 % (92-98.5)
[2020-04-10] MEDS ORDERED: CEFTRIAXONE/SWI 1gm 1 GM/10 ML SYR ONE (23:29)
[2020-04-11 01:26] LABS: Absolute Lymphocytes (CBC) 0.6 K/uL (0.7-4.9); Basophils % 0.4 % (0-1.3); Lymphocytes % 5.7 % (15.3-44.8); MPV 8.1 fL (7.6-11.3); RBC Red Blood Cell Count 2.86 M/uL (3.86-4.86)
[2020-04-11] MEDS: NA CHLORIDE 0.9% 1,000 ML IV SCH ×2 (02:58→13:33)
[2020-04-11] MEDS ORDERED: NA CHLORIDE 0.9% 1,000 ML ONE (03:11)
[2020-04-11 05:14] VITALS: BMI 32.3
[2020-04-11 05:55] LABS: Absolute Lymphocytes (CBC) 0.6 K/uL (0.7-4.9)
[2020-04-11 05:59] LABS: Basophils % 0.3 % (0-1.3); Hematocrit 29.4 % (36.0-45.0); Lymphocytes % 6.1 % (15.3-44.8); MPV 8.3 fL (7.6-11.3); RBC Red Blood Cell Count 2.82 M/uL (3.86-4.86)
[2020-04-11] MEDS ORDERED: CEFTRIAXONE/SWI 1gm 1 GM/10 ML SYR ONE (08:29)
[2020-04-11] MEDS ORDERED: NA CHLORIDE 0.9% 500 ML IV ONE (08:54)
[2020-04-11] MEDS ORDERED: CEFTRIAXONE 1 GM/NS 50 ML 1 GM/50 ML BAG IV SCH (09:00)
[2020-04-11] MEDS ORDERED: METOPROLOL TAR 25 MG TAB PO SCH (09:00)
--- NOTE | 2020-04-11 09:13 | RAD REPORT ---
EXAM DESCRIPTION: CT - Abdomen Pelvis Wo Contrast - 04/11/2020 6:25 am CLINICAL HISTORY: The patient is 85 years old and is Female; bloody diarrhea TECHNIQUE: Axial computed tomography images of the abdomen and pelvis without intravenous contrast. Sagittal and coronal reformatted images were created and reviewed. This CT exam was performed usi ng one or more of the following dose reduction techniques: automated exposure control, adjustment o f the mA and/or kV according to patient size, and/or use of iterative reconstruction technique. COMPARISON: CT of the chest, abdomen, and pelvis November 29, 2019. FINDINGS: LUNG BASES: Calcified granuloma within the right lower lobe is present. Atelectasis/cons olidation within left lower lobe is noted. PLEURAL SPACE: Small bilateral pleural effusions are present. HEART: The heart is enlarged. ABDOMEN: LIVER: Multiple hepatic granuloma are present. GALLBLADDER AND BILE DUCTS: Surgical clips are present in the right upper quadrant, consistent wi th previous cholecystectomy. PANCREAS: The pancreas is atrophic. No ductal dilation. SPLEEN: Multiple splenic granuloma are present. ADRENALS: Unremarkable. No mass. KIDNEYS AND URETERS: No obstructing stones. No hydronephrosis. No perinephric fluid. STOMACH AND BOWEL: The stomach is decompressed. Small amount of contrast is present within the st omach. Oral contrast is noted throughout the small bowel is normal in caliber. Contrast and stool i s noted throughout the colon. Suggestion of minimal mucosal thickening of the colon is present. There is no bowel obstruction. A rectal tube is present. PELVIS: APPENDIX: No findings to suggest acute appendicitis. BLADDER: A Baron catheter is present within the decompressed urinary bladder. No stones. REPRODUCTIVE: Unremarkable as visualized. ABDOMEN and PELVIS: INTRAPERITONEAL SPACE: Trace free fluid is present within the pelvis. No free air. BONES/JOINTS: Postsurgical change of the proximal left femur is present. There are degenerative c hanges of the spine. Vertebral plana of L2 is noted with mild retropulsion. SOFT TISSUES: The soft tissues are normal. VASCULATURE: Atherosclerosis of the vasculature is present. The vessels are normal in caliber. No abdominal aortic aneurysm. LYMPH NODES: Unremarkable. No enlarged lymph nodes. IMPRESSION: 1. Findings suggestive of a mild diffuse colitis. There is no evidence of obstruction. 2. Small bilateral pleural effusions with atelectasis/consolidation in the left lower lobe. Electronically signed by: Sri Mullen MD 04/11/2020 1:22 AM PARTY CHIEF Due to temporary technical issues with the PACS/Fluency reporting system, reports are being signed by the in house radiologists without review as a courtesy to insure prompt reporting. The interpreting radiologist is fully responsible for the content of the report.
[2020-04-11 09:18] LABS: Blood Morphology Comment NOT SEEN (NOT SEEN); Platelet Estimate ADEQ; White Blood Cell Scan OK (OK)
[2020-04-11] MEDS: CEFTRIAXONE/SWI 1gm 1 GM/10 ML SYR IVP SCH ×2 (09:26→21:52)
[2020-04-11] MEDS ORDERED: NA CHLORIDE 0.9% 500 ML ONE (09:40)
[2020-04-11 12:09] LABS: Hematocrit 29.6 % (36.0-45.0)
[2020-04-11 12:18] LABS: C.diff Antigen/Toxin Ag pos : Tox neg (NEG : NEG)
[2020-04-11] MEDS ORDERED: METOPROLOL TAR 25 MG TAB PO ONE (14:06)
[2020-04-11] MEDS ORDERED: NYSTATIN PWDR 100000 UNIT/GM TOP PRN (14:10)
[2020-04-11] MEDS ORDERED: SILVER SULFADIAZINE 1% 50 GM TOP PRN (14:10)
[2020-04-11] MEDS ORDERED: DOCUSATE NA/SENNA CONC 1 TAB PO PRN (14:10)
[2020-04-11] MEDS: METOPROLOL TAR 25 MG TAB PO SCH (17:36)
--- NOTE | 2020-04-11 20:01 | EKG ---
Test Date: 2020-04-10 Test Time: 19:58:56 Diver Pumper: CUATE MEASUREMENT RESULTS: Intervals: Rate: 70 RI: QRSD: 182 QT: 532 QTc: 574 [place]: P: RI: QRS: -68 T: 106 INTERPRETIVE STATEMENTS: Electronic ventricular pacemaker Compared to ECG 11/29/2019 13:27:44 No significant changes Electronically Signed On 04-11-20 20:01:08 FAGOT MAKER by Luis Sommers
[2020-04-11] MEDS: PRAMIPEXOLE 1 MG TAB PO SCH (21:52)
[2020-04-11] MEDS: FUROSEMIDE 40 MG TABLET PO SCH (21:52)
[2020-04-12 00:13] LABS: Hematocrit 28.3 % (36.0-45.0)
[2020-04-12 05:27] LABS: Thyroid Stimulating Hormone 64.6 uIU/mL (0.360-3.740)
[2020-04-12] MEDS ORDERED: LEVOTHYROXINE SOD 0.075 MG TAB PO SCH (06:00)
[2020-04-12] MEDS: METOPROLOL TAR 25 MG TAB PO SCH ×3 (06:04→17:32)
[2020-04-12] MEDS: FE SULF/FA/VIT B COMP & C TAB PO SCH (09:37)
[2020-04-12] MEDS: CEFTRIAXONE/SWI 1gm 1 GM/10 ML SYR IVP SCH ×2 (09:37→20:46)
[2020-04-12] MEDS: PANTOPRAZOLE 40MG TABLET PO SCH (09:37)
[2020-04-12] MEDS: FUROSEMIDE 40 MG TABLET PO SCH ×2 (09:37→20:46)
[2020-04-12] MEDS: CRANBERRY FRUIT EXTRACT 200 MG CAP PO SCH (09:38)
[2020-04-12] MEDS ORDERED: NA CHLORIDE 0.9% 250 ML IV PRN (11:57)
[2020-04-12 12:05] LABS: Hematocrit 30.1 % (36.0-45.0)
[2020-04-12] MEDS: NA CHLORIDE 0.9% 1,000 ML IV SCH (12:44)
[2020-04-12 13:14] LABS: Protime INR 1.34
[2020-04-12] MEDS: METRONIDAZOLE 500mg IVPB 500 MG/100 ML BAG IV SCH (17:34)
[2020-04-12] MEDS ORDERED: CHOLESTYRAMINE/ASP 4 GM/PKT PO ONE (18:00)
--- NOTE | 2020-04-12 20:01 | CON ---
Date of Consultation: 04/12/2020 Reason For Consultation: Bloody diarrhea and altered mental status. History Of Present Illness: The patient is an 85-year-old white female with history of hypertension, atrial fibrillation, pacemaker, depression, neuropathy, stage II decubitus ulcer. The patient prese nted to the hospital with 3 days of bloody diarrhea. The daughter says it looks black like melena. She is on Eliquis and Plavix due to her atrial fibrillation. Stool in the ER was heme positive. Kenneth mendes notes that the stool is also foul smelling. Of note, the patient was in her usual state of [facility] until she went to daughter's house for Thanksgiving, a number of family members were present incl uding a 6-year-old great granddaughter. Since that time over the past 5 weeks, the patient has lost approximately 30 pounds going from 225 to 195 pounds. Currently in the hospital, she is saturating a round 89% on room air and about 100% on 2 L O2, somewhat short of breath at rest, some mildly labored breathing. Daughter also states that her mental status is somewhat altered with mild confusion. Past Medical History: Significant for hypertension; atrial fibrillation with a pacemaker; depression ; neuropathy in feet and hands, for which she takes gabapentin; congestive heart failure; stage II de cubitus ulcer; chronic lower extremity edema, she thinks may be lymphedema; left hip fracture with blanca rgery, which resulted in renal failure and respiratory arrest, but she survived all that according to the daughter. Medications: Home medicines include Senexon, nystatin, dicyclomine, Tylenol, potassium, Keflex, Lopr essor, Neurontin, Effexor, Xarelto, Lasix, trazodone, rosuvastatin, pramipexole, Protonix, melatonin, levothyroxine, Hemocyte Plus, Cranberry Bacillus tablet, silver sulfadiazine cream. Currently in hospital, the patient has ceftriaxone, cranberry fruit extract, docusate, Senokot, Lasix 20 mg twice a day, iron, folate, vitamin B complex, multivitamin, levothyroxine, metoprolol, saline, Protonix, Mirapex, and silver sulfadiazine cream. Allergies: CODEINE, OPIATES, AND MORPHINE AND MORPHINE TYPE MEDICINES. Social History: She is a . She lives at [facility]. She has 4 children. Her daughter is at bedside now. No tobacco. Positive for alcohol, drinking 2 margaritas a month. Family History: Father of myocardial infarction. He had exposure to a lot of chemicals. We do ubt that effected his health as well. Mother of Alzheimer disease. Review of Systems: The patient has bloody diarrhea, change in altered mental status, heme-positive stool, black stools, melena, decubitus ulcer, and getting lot of debris from the diarrhea. She denies any fevers, chills, night sweats, or abdominal pain. No significant hematochezia. No hematemesis, coffee-grounds emesi s, hemoptysis, hematuria, dysuria, polydipsia, chest pain, shortness of breath, cough even though she does look sort of short of breath when I looked at her sitting in bed. No cough. No dysuria noted. No fevers, chills, or night sweats. She does have lower extremity edema, but no cyanosis or clubbi ng. No depression or anxiety. Physical Examination: Vital Signs: The patient is 5 foot 5 inches, 194 pounds, BMI of 32.3 kg/sq m. Temperature 97.4 degr ees Fahrenheit, pulse 70, respirations 24, blood pressure 116/58, O2 saturation 99%. HEENT: Normocephalic, atraumatic. Anicteric. Pupils equal, round, and reactive to light. Extraocu lar movements are intact. Oropharynx is clear. Neck: Supple. No masses. Respirations: Clear to auscultation bilaterally. Cardiac: Regular rate and rhythm. No gallops or rubs. Abdomen: Positive bowel sounds. Soft, nontender, nondistended. No hepatosplenomegaly. Obese. No peritoneal or Deal sign. No rebound. Extremities: No clubbing or cyanosis. She does have lower extremity edema, approximately 1 to 2+. Neurologic: Alert and oriented x3, though somewhat easily somnolent, but easily arousable and answer s questions appropriately. Laboratory Data: The patient has a white count of 10.5, up from 9.8 yesterday; hemoglobin of 9.2; he matocrit 29.4; MCV of 104; platelet count of 207; polys 89%; lymphocytes 6%; monocytes 4%; hemoglobin 9.6, last checked tonight. PT of 15.7, INR of 1.34, but on admission PT of 20, INR of 1.7, PTT of 4 5.2. D-dimer 449. She is on Plavix and Eliquis as an outpatient. Blood gas showed a pH of 7.24, li ttle low, acidotic; pCO2 of 57, little high; PaO2 of 79; bicarb 24; O2 saturation 95% on room air. T franca, the patient had a sodium of 144, potassium 4.0, chloride 111, bicarb 24, BUN of 25, creatinine of 1.85, glucose 105, calcium 8.8, total bilirubin 0.4, direct bilirubin 0.2, AST of 182, ALT of 110, alkaline phosphatase 241. Troponin I of less than 0.02. B-type natriuretic peptide 2607. Total pr otein 7.3, albumin 2.5, TSH of 65.2, free T4 little low at 0.28, so I think this is from levothyroxin e probably increased. UA showed 1+ blood, otherwise negative urinalysis. C diff toxin was positive. COVID PCR testing negative. CT abdomen and pelvis reveals mild diffuse colitis, small bilateral pl eural effusions with atelectasis and consolidation in the left lower lobe, possible pneumonia. Chest x-ray shows mild interstitial pneumonia, left pleural effusion, heart is significantly enlarged. Impression: 1.Bloody diarrhea x3 days, foul smell with melena according to daughter, also on the rectal bag bein g positive. No fevers, chills, night sweats, abdominal pain. The patient is on Eliquis and Plavix. Ate Thanksgiving meal with family with a 6-year-old granddaughter present. Daughter present said th ere were no sick people there. Last colonoscopy was about 10+ years ago. Clostridium difficile toxi n is positive on testing; therefore, this is probably Clostridium difficile colitis plus or minus oth er possibilities. We will await further stool cultures as well. We will start therapy on Clostridiu m difficile. 2.Clostridium difficile colitis. We will start vancomycin 125 mg p.o. q.i.d. and we will continue p .o. Lactinex if restarted prior to seeing the patient. 3.Altered mental status, probably secondary to sepsis. The patient is able to answer questions appr opriately, though daughter thinks her mental status is somewhat decreased compared to normal, probabl y due to sepsis. 4.Sepsis. White count 10.5, polys 88.9%, probably due to Clostridium difficile colitis, but also wi th chest x-ray revealing bilateral pleural effusions and left lower lobe infiltrate, possibly consist ent with infection/pneumonia with the patient somewhat short of breath, O2 saturation 89% on room air and on 2 L tonight, though the oxygen saturation on blood gas last night in the emergency room was a pproximately 94% on room air. She is doing worse as far as her lungs are concerned over the past 12 to 24 hours. 5.Possible left lower lobe pneumonia with bilateral pleural effusions by CT scan results and also cl inically with decrease in oxygen saturation recently stated above. 6.History of hypertension, atrial fibrillation, pacemaker, depression, neuropathy in feet and hands, congestive heart failure, stage II decubitus ulcer, lower extremity edema bilaterally, left hip frac ture surgery with renal failure and acute respiratory arrest at that time and she recovered. Recommendations: 1.Continue to check other stool studies that are pending including stool culture. 2.Start Questran. 3.Add Flagyl and Levaquin. 4.We will also add vancomycin 125 mg p.o. q.i.d., Lactinex if even been added when recalled by the p robertient. 5.Await blood cultures. 6.Consider colonoscopy after sepsis control. 7.Respiratory therapy for pulmonary toilet and precaution for the patient to help with resolving of this infiltrate in the left lower lung field. The patient will also need physical therapy inpatient and outpatient to help with her recovery as well. CHAD/GAYLA Voice ID: [id number] Report ID: [id number]
[2020-04-12] MEDS: PRAMIPEXOLE 1 MG TAB PO SCH (20:46)
[2020-04-12] MEDS: LACTOBACILLUS/ACIDOPHILUS TAB PO SCH (20:46)
[2020-04-12] MEDS ORDERED: Levofloxacin500mg IV 500 MG/100 ML BAG IV SCH (21:00)
[2020-04-12] MEDS ORDERED: CHOLESTYRAMINE/ASP 4 GM/PKT PO SCH (21:00)
--- NOTE | 2020-04-12 22:01 | HP ---
Date of Admission: 04/11/2020 Entrance Complaint: Altered mental status, diarrhea. History Of Present Illness: Patient presented to the emergency room with the above outlined symptoms . The history was obtained mainly from the daughter. She is in the snf. She states over t he past few days, she began having some black liquidy type stools, even though she was on iron. She has not had a and apparently, she also had some altered mental status over the last day or 2 associated with this and has made some foul smelling urine in the past. She has had altered menta l status with UTIs, was hospitalized on numerous occasions for this. There was no vomiting. Patient has been her usual self which has been rather inactive over the past few months secondary to the COV ID situation over the past few days, significantly decreased as well. Past Medical History: Patient has a long history of multiple hospitalizations for problems ranging f rom: 1.Coronary artery disease. 2.UTIs with septicemia. 3.Cellulitis of the legs. 4.Episodes of . Family History: Noncontributory. Social History: Nonsmoker, nondrinker. Physical Examination: General: Patient is elderly female, who is somewhat disoriented and confused. Vital Signs: Stable. HEENT: Head and neck, normocephalic. Pupils are equal to light and accommodation. Fundi negative. Trachea midline. Thyroid not palpable. ENT negative. Chest: Clear to P and A. Cardiovascular: PMI midclavicular line. Cardiovascular: Heart sounds normal. Peripheral pulses are present and equal bilaterally. Abdomen: Slightly tender in the paraumbilical midepigastric area. No guarding, rebound, tenderness, or rigidity. Bowel sounds hyperactive. Extremities: Moderately dehydrated. Good tone and movement bilaterally. Reflexes physiologic. Rectal: Deferred. Impression: Altered mental status, urinary tract infection, acute enteritis. Plan: Patient will be admitted and placed on IV fluids. Monitored IV antibiotics. Saturnino elliott on the workup, further treatment will be undertaken. Patient is a DNR, which is based on her [facility] admission. HR/MODL Voice ID: [id number]
--- NOTE | 2020-04-12 22:10 | PN ---
Date of Progress Note: 04/11/2020 Patient when seen rozina was somewhat more orientated, responsive, but quite lethargic. She had a f ew more stools. Her hemoglobin has basically stabilized compatible, which she has been running in past. A GI workup was considered in her last hospitalization, but since she stabilized, I felt it would not contribute much. However, this time, the CT scan did show some colitis and if there is in fact an H and H problem, this may need to be considered. The other issue for the first time her LFTs were abnormal. This could be secondary to medication, but according to her daughter, she has been t aking a significant amount of Tylenol on a regular basis. This also obviously is a factor. Continue to monitor and take appropriate measures. The patient was bolused with fluids as she became hypoten sive and her medication was varied with holding her Lasix, decreasing her beta-anthony frequency and depending on further implementation. HR/MODL Voice ID: [id number] Report ID: [id number]
[2020-04-13] MEDS: METRONIDAZOLE 500mg IVPB 500 MG/100 ML BAG IV SCH ×5 (00:19→23:21)
[2020-04-13 01:10] LABS: Hematocrit 27.9 % (36.0-45.0)
[2020-04-13] MEDS: LEVOTHYROXINE SOD 0.05 MG TABLET PO SCH (05:08)
[2020-04-13] MEDS: LEVOTHYROXINE SOD 0.125 MG TAB PO SCH (05:08)
[2020-04-13] MEDS: METOPROLOL TAR 25 MG TAB PO SCH ×2 (05:09→17:19)
[2020-04-13 05:10] LABS: Bilirubin Direct 0.2 mg/dL (0-0.2); Bilirubin Total 0.3 mg/dL (0.2-1.0); Potassium 3.7 mmol/L (3.5-5.1); Protein, Total 6.7 g/dL (6.4-8.2)
[2020-04-13] MEDS: VANCOMYCIN ORAL SOLN 250 MG/5 ML OSYR PO SCH ×5 (05:13→23:21)
[2020-04-13] MEDS: LACTOBACILLUS/ACIDOPHILUS TAB PO SCH ×2 (09:36→21:20)
[2020-04-13] MEDS: FUROSEMIDE 40 MG TABLET PO SCH ×2 (09:36→21:20)
[2020-04-13] MEDS: CRANBERRY FRUIT EXTRACT 200 MG CAP PO SCH (09:37)
[2020-04-13] MEDS: CEFTRIAXONE/SWI 1gm 1 GM/10 ML SYR IVP SCH (09:37)
[2020-04-13] MEDS: FE SULF/FA/VIT B COMP & C TAB PO SCH (09:37)
[2020-04-13] MEDS: PANTOPRAZOLE 40MG TABLET PO SCH (09:37)
[2020-04-13] MEDS: Levofloxacin 250mg IV 250 MG/50 ML BAG IV SCH (18:11)
[2020-04-13] MEDS: ENSURE HIGH PROTEIN 237 ML CAN PO SCH (21:19)
[2020-04-13] MEDS: JUVEN PACKET PO SCH (21:19)
[2020-04-13] MEDS: PRAMIPEXOLE 1 MG TAB PO SCH (21:20)
[2020-04-13] MEDS: CHOLESTYRAMINE/ASP 4 GM/PKT PO SCH (21:21)
[2020-04-14] MEDS: METOPROLOL TAR 25 MG TAB PO SCH ×2 (05:40→17:45)
[2020-04-14] MEDS: METRONIDAZOLE 500mg IVPB 500 MG/100 ML BAG IV SCH ×3 (05:40→17:44)
[2020-04-14] MEDS: VANCOMYCIN ORAL SOLN 250 MG/5 ML OSYR PO SCH ×3 (05:41→17:44)
[2020-04-14] MEDS: LEVOTHYROXINE SOD 0.125 MG TAB PO SCH (05:41)
[2020-04-14] MEDS: LEVOTHYROXINE SOD 0.05 MG TABLET PO SCH (05:42)
[2020-04-14] MEDS: LACTOBACILLUS/ACIDOPHILUS TAB PO SCH ×2 (08:56→22:05)
[2020-04-14] MEDS: FUROSEMIDE 40 MG TABLET PO SCH ×2 (08:56→22:05)
[2020-04-14] MEDS: PANTOPRAZOLE 40MG TABLET PO SCH (08:56)
[2020-04-14] MEDS: CRANBERRY FRUIT EXTRACT 200 MG CAP PO SCH (08:56)
[2020-04-14] MEDS: ENSURE HIGH PROTEIN 237 ML CAN PO SCH ×2 (08:56→21:00)
[2020-04-14] MEDS: FE SULF/FA/VIT B COMP & C TAB PO SCH (08:56)
[2020-04-14] MEDS: JUVEN PACKET PO SCH ×2 (08:57→22:18)
[2020-04-14] MEDS: Levofloxacin 250mg IV 250 MG/50 ML BAG IV SCH (18:22)
[2020-04-14] MEDS: CHOLESTYRAMINE/ASP 4 GM/PKT PO SCH (22:04)
[2020-04-14] MEDS: PRAMIPEXOLE 1 MG TAB PO SCH (22:04)
[2020-04-15] MEDS: METRONIDAZOLE 500mg IVPB 500 MG/100 ML BAG IV SCH ×4 (00:40→17:44)
[2020-04-15] MEDS: VANCOMYCIN ORAL SOLN 250 MG/5 ML OSYR PO SCH ×4 (00:40→17:40)
[2020-04-15] MEDS: NA CHLORIDE 0.9% 1,000 ML IV SCH ×2 (00:44→16:00)
[2020-04-15 05:04] LABS: Absolute Lymphocytes (CBC) 0.8 K/uL (0.7-4.9); Basophils % 0.2 % (0-1.3); Hematocrit 29.7 % (36.0-45.0); Lymphocytes % 10.3 % (15.3-44.8); MPV 8.1 fL (7.6-11.3); RBC Red Blood Cell Count 2.85 M/uL (3.86-4.86)
[2020-04-15 05:16] LABS: Potassium 3.5 mmol/L (3.5-5.1)
[2020-04-15] MEDS: LEVOTHYROXINE SOD 0.125 MG TAB PO SCH (06:28)
[2020-04-15] MEDS: LEVOTHYROXINE SOD 0.05 MG TABLET PO SCH (06:28)
[2020-04-15] MEDS: METOPROLOL TAR 25 MG TAB PO SCH ×2 (06:31→17:42)
[2020-04-15 07:36] LABS: Platelet Estimate ADEQ
[2020-04-15 07:37] LABS: Anisocytosis 1+; Polychromasia 1+
[2020-04-15 07:38] LABS: Basophilic Stippling 1+; Macrocytosis 1+
[2020-04-15 08:32] LABS: Blood Morphology Comment NOTED (NOT SEEN)
[2020-04-15] MEDS: FE SULF/FA/VIT B COMP & C TAB PO SCH (09:00)
[2020-04-15] MEDS: FUROSEMIDE 40 MG TABLET PO SCH ×2 (09:00→21:22)
[2020-04-15] MEDS: JUVEN PACKET PO SCH ×2 (09:34→21:00)
[2020-04-15] MEDS: CRANBERRY FRUIT EXTRACT 200 MG CAP PO SCH (09:35)
[2020-04-15] MEDS: LACTOBACILLUS/ACIDOPHILUS TAB PO SCH ×2 (09:36→21:22)
[2020-04-15] MEDS: PANTOPRAZOLE 40MG TABLET PO SCH (09:36)
[2020-04-15] MEDS: ENSURE HIGH PROTEIN 237 ML CAN PO SCH ×2 (09:37→21:00)
--- NOTE | 2020-04-15 10:07 | PN ---
Date of Progress Note: 04/14/2020 The patient basically is status quo. She has been on antibiotics now for a colitis. Her activity le russell is minimal. Discussion with daughter as far as placement in LTAC which was as possible earlier a s she has IV antibiotics and a wound that needs to be treated. However, the daughter felt this was n ot feasible due to the distance involved. I discussed the anticoagulation situation with Dr. Ornelas. Her vital signs seem stable. She is responsive to questions, but is still somewhat confused and he r prognosis is not very good. However, she has stability as far as her lab work and vital signs are concerned, so I will continue to treat this with the antibiotics and make disposition over the next f ew days. HR/MODL Voice ID: [id number] Report ID: [id number]
[2020-04-15 16:56] LABS: Albumin 2.2 g/dL (3.4-5.0); Bilirubin Direct 0.1 mg/dL (0-0.2); Bilirubin Total 0.3 mg/dL (0.2-1.0); Protein, Total 6.9 g/dL (6.4-8.2)
--- NOTE | 2020-04-15 17:42 | P.PN ---
Subjective Date of Service: 04/15/20 Chief Complaint: Melena / diarrhea, C diff Subjective: Improving (Decreased stool output by over 50%. Her hgb stable at 8.8 to 9.6. She has increased energy today and more talkative. Her appetite is much better today as well.) Review of Systems 10-point ROS is otherwise unremarkable General: Weakness (Improved.), Malaise (Improved.) Gastrointestinal: Diarrhea (Improved.) Physical Examination - Vital Signs Temperature: 96.9 F Blood Pressure: 139/68 Pulse: 70 Respirations: 18 Pulse Ox (%): 98 - Physical Exam General: Alert, In no apparent distress, Oriented x3, Cooperative HEENT: Atraumatic, Normocephalic, PERRLA, EOMI Neck: Supple Respiratory: Normal air movement Cardiovascular: Normal pulses, Edema Gastrointestinal: Soft and benign, No tenderness, No rebound, No guarding Neurological: Normal speech Assessment And Plan - Current Problems (Diagnosis) (1) Diarrhea Current Visit: Yes Status: Acute (2) Melena Current Visit: Yes Status: Acute (3) C. difficile colitis Current Visit: Yes Status: Acute (4) Chronic venous hypertension w/ulcer and inflammation involv both sides Current Visit: No Status: Acute (5) Sepsis Current Visit: No Status: Acute (6) Atrial fibrillation Current Visit: No Status: Chronic - Plan REC: 1) continue C diff therapy 2) increase diet 3) remove rectal tube when stool firmer 4) wound care for decubitus ulcer
[2020-04-15] MEDS ORDERED: TOBRAMYCIN SULF 0.3% OPTH OINT OPTH ONE (18:15)
--- NOTE | 2020-04-15 19:37 | PN ---
Date of Progress Note: 04/15/2020 The patient is somewhat more alert this afternoon and still I will try to increase her IV fluids. He r bowel movements have improved somewhat since being started on the antibiotic. Physical therapy sta rted to work with her. She has a minimal amount of activity still. Continue on the triple antibioti c therapy, and depending on an intake in the next couple days, we will decide on her disposition time . Continue to hold her anticoagulant possibly for another day or two. HR/MODL Voice ID: [id number] Report ID: [id number]
[2020-04-15] MEDS: Levofloxacin 250mg IV 250 MG/50 ML BAG IV SCH (21:22)
[2020-04-15] MEDS: ENOXAPARIN 40 MG/0.4 ML SQ SCH (21:22)
[2020-04-15] MEDS: PRAMIPEXOLE 1 MG TAB PO SCH (21:22)
[2020-04-15] MEDS: CHOLESTYRAMINE/ASP 4 GM/PKT PO SCH (21:22)
[2020-04-16] MEDS: NA CHLORIDE 0.9% 1,000 ML IV SCH ×2 (00:14→02:00)
[2020-04-16] MEDS: METRONIDAZOLE 500mg IVPB 500 MG/100 ML BAG IV SCH ×5 (00:18→23:14)
[2020-04-16] MEDS: VANCOMYCIN ORAL SOLN 250 MG/5 ML OSYR PO SCH ×6 (00:18→23:15)
[2020-04-16] MEDS: TOBRAMYCIN SULF 0.3% OPTH OINT OPTH SCH ×2 (00:18→09:00)
[2020-04-16] MEDS: LEVOTHYROXINE SOD 0.125 MG TAB PO SCH (05:56)
[2020-04-16] MEDS: LEVOTHYROXINE SOD 0.05 MG TABLET PO SCH (05:56)
[2020-04-16] MEDS: METOPROLOL TAR 25 MG TAB PO SCH ×2 (05:57→18:00)
[2020-04-16 06:00] LABS: Absolute Lymphocytes (CBC) 0.7 K/uL (0.7-4.9); Basophils % 0.4 % (0-1.3); Lymphocytes % 9.3 % (15.3-44.8); MPV 8.5 fL (7.6-11.3); RBC Red Blood Cell Count 2.82 M/uL (3.86-4.86)
[2020-04-16 06:07] LABS: Albumin 2.2 g/dL (3.4-5.0); Bilirubin Direct 0.2 mg/dL (0-0.2); Bilirubin Total 0.4 mg/dL (0.2-1.0); Potassium 3.6 mmol/L (3.5-5.1); Protein, Total 6.9 g/dL (6.4-8.2)
[2020-04-16] MEDS ORDERED: FUROSEMIDE 40 MG/4 ML VIAL IV ONE (08:50)
[2020-04-16 08:54] LABS: Blood Morphology Comment NOTED (NOT SEEN); Macrocytosis 2+; Platelet Estimate DECR
[2020-04-16] MEDS: LACTOBACILLUS/ACIDOPHILUS TAB PO SCH ×2 (09:00→20:12)
[2020-04-16] MEDS: ENSURE HIGH PROTEIN 237 ML CAN PO SCH ×2 (09:00→20:12)
[2020-04-16] MEDS: JUVEN PACKET PO SCH ×2 (09:00→20:12)
[2020-04-16] MEDS: CRANBERRY FRUIT EXTRACT 200 MG CAP PO SCH (09:00)
[2020-04-16] MEDS: PANTOPRAZOLE 40MG TABLET PO SCH (09:00)
[2020-04-16] MEDS: FE SULF/FA/VIT B COMP & C TAB PO SCH (09:00)
[2020-04-16] MEDS: FUROSEMIDE 40 MG TABLET PO SCH ×2 (09:00→20:12)
[2020-04-16] MEDS: ENOXAPARIN 40 MG/0.4 ML SQ SCH (09:29)
--- NOTE | 2020-04-16 10:37 | RAD REPORT ---
EXAM DESCRIPTION: [facility] Single View04/16/2020 10:19 am CLINICAL HISTORY: Shortness of breath COMPARISON: April 11 FINDINGS: Small to moderate pleural effusions suspected. Mid to lower right lung is hazy probably ei ther secondary to pneumonia, pulmonary edema or atelectasis Heart remains enlarged. Pacemaker leads in place
[2020-04-16] MEDS: ALBUTEROL 2.5 MG/3 ML NEB SOL NEB SCH ×2 (14:15→19:40)
[2020-04-16] MEDS: IPRATROPIUM BROM 0.5MG/2.5ML NEB SCH ×2 (14:15→19:40)
[2020-04-16 16:25] LABS: Arterial Blood Carboxyhemoglob 1.4 % (0-1.5); Blood Gas Oxyhemoglobin 95.5 % (94-97)
[2020-04-16] MEDS: Levofloxacin 250mg IV 250 MG/50 ML BAG IV SCH (20:11)
[2020-04-16] MEDS: PRAMIPEXOLE 1 MG TAB PO SCH (20:12)
[2020-04-16] MEDS: CHOLESTYRAMINE/ASP 4 GM/PKT PO SCH (20:13)
[2020-04-16] MEDS: LORazepam 2 MG/ML VIAL IV PRN (20:49)
[2020-04-17 00:18] VITALS: BP 101/50; TEMP 96.1
[2020-04-17] MEDS: LORazepam 2 MG/ML VIAL IV PRN (01:10)
[2020-04-17] MEDS: IPRATROPIUM BROM 0.5MG/2.5ML NEB SCH (01:52)
[2020-04-17] MEDS: ALBUTEROL 2.5 MG/3 ML NEB SOL NEB SCH (01:52)
[2020-04-17 01:59] VITALS: O2SAT 94
[2020-04-17] MEDS ORDERED: ENOXAPARIN 30 MG/0.3 ML SQ SCH (09:00)
== END 2020-04-17 05:20 | disposition expired | DRG 871 ==
LOC: ER 17:57 → ERHOLD 04-11 00:54 → 2ND 04-11 13:18
PROVIDERS: ADMIT Family Medicine; ATTEND Family Medicine
DX: A41.9 Sepsis, unspecified organism (principal); E43 Unspecified severe protein-calorie malnutrition; G93.41 Metabolic encephalopathy; J18.9 Pneumonia, unspecified organism; A04.72 Enterocolitis due to Clostridium difficile, not specified as recurrent; N39.0 Urinary tract infection, site not specified; K92.1 Melena; I48.20 Chronic atrial fibrillation, unspecified; I87.333 Chronic venous hypertension (idiopathic) with ulcer and inflammation of bilateral lower extremity; K52.9 Noninfective gastroenteritis and colitis, unspecified; I12.9 Hypertensive chronic kidney disease with stage 1 through stage 4 chronic kidney disease, or unspecified chronic kidney disease; N18.30 Chronic kidney disease, stage 3 unspecified; E03.9 Hypothyroidism, unspecified; I89.0 Lymphedema, not elsewhere classified; Z68.32 Body mass index [BMI] 32.0-32.9, adult; Z88.5 Allergy status to narcotic agent; Z95.0 Presence of cardiac pacemaker; Z79.01 Long term (current) use of anticoagulants; Z79.02 Long term (current) use of antithrombotics/antiplatelets; Z79.890 Hormone replacement therapy; Z79.899 Other long term (current) drug therapy; Z66 Do not resuscitate; Z20.828 Contact with and (suspected) exposure to other viral communicable diseases
CPT/HCPCS: 36415; 51702; 71045; 74176; 80048; 80061; 80076; 81003; 82150; 82805; 82947; 83605; 83735; 83880; 84439; 84443; 84450; 84460; 84484; 85014; 85018; 85025; 85379; 85610; 85730; 86850; 86900; 86901; 87040; 87045; 87046; 87070; 87077; 87186; 87205; 87324; 87449; 87493; 92526; 92610; 93005; 94640; 96374; 97110; 97112; 97161; 97165; 97530; 99285; J0696; J1650; J1940; J7030; J7040; J7050; U0003